=== PATIENT | female | born 1935 | race Caucasian/White ===

== ENCOUNTER → 2017-03-05 07:27 | Outpatient (CLI) | payer MEDICARE, OTHER, SELFPAY ==
[2017-03-04 13:53] VITALS: BMI 39.3
--- NOTE | 2017-03-05 08:00 | ECHOCS_ITS ---
Reason For Study: CHF Procedure This was a 2D Doppler, Color Flow transthoracic echocardiogram. The study was technically difficult. Exam performed in department. Left Ventricle Mild concentric left ventricular hypertrophy. The estimated ejection fraction is 45-50 %. Stage 1 diastolic dysfunction. No regional wall motion abnormalities noted. There is mild global hypokinesis of the left ventricle. Right Ventricle Normal size and thickness. Normal systolic function. Atria Normal left atrium. Normal right atrium. Normal atrial septum. Mitral Valve The mitral valve is structurally normal. No prolapse or stenosis seen. Mild (1+) eccentric mitral valve insufficiency. Tricuspid Valve Normal tricuspid valve. Trivial tricuspid valve insufficiency. Right ventricular systolic pressure estimated to be 33 mmHg. Aortic Valve Trisinus/trileaflet aortic valve. Mild focal aortic valve thickening. Moderately severe (3+) eccentric aortic valve insufficiency. Pulmonic Valve Normal pulmonic valve. Trivial eccentric pulmonic valve insufficiency. Great Vessels Mildly dilated aortic root. Mild atherosclerosis of the aortic arch. Normal inferior vena cava. Inferior vena cava collapse with sniff. Pericardium/Pleural No pericardial effusion. Medication Diluted definity 3ml given slow IV push to enhance endocardial definition. MMode/2D Measurements & Calculations LVIDd: 4.4 cm IVSd: 1.3 cm LVOT diam: 2.0 cm LVIDs: 3.5 cm LVPWd: 1.3 cm LVOT area: 3.3 cm2 FS: 20.3 % Ao root diam: 3.8 cm LAV(MOD-bp): 45.3 ml LA dimension: 3.2 cm LAV(MOD-bp) Indexed: 23.5 ml/m2 Aortic Valve Planimetry: 2.2 cm2 LAV(MOD-sp2): 41.2 ml LAV(MOD-sp4): 49.7 ml LA A4 area: 17.0 cm2 Time Measurements MV dec time: 0.43 sec Doppler Measurements & Calculations MV E max benjie: 47.9 cm/sec Lat Peak E' Benjie: 4.7 cm/sec Med Peak E' Benjie: 3.7 cm/sec MV A max benjie: 86.8 cm/sec E/E' lat: 10.2 E/E' med: 12.8 MV E/A: 0.55 MV V2 max: 113.6 cm/sec MV P1/2t max benjie: 110.4 cm/sec Ao V2 max: 207.7 cm/sec MV max P.2 mmHg MV P1/2t: 116.6 msec Ao max P.3 mmHg MV V2 mean: 61.9 cm/sec MV dec slope: 277.4 cm/sec2 Ao V2 mean: 105.1 cm/sec MV mean P.9 mmHg MVA(P1/2t): 1.9 cm2 Ao mean P.9 mmHg MV V2 VTI: 53.0 cm Ao V2 VTI: 43.8 cm MVA(VTI): 1.9 cm2 RAJIV(I,D): 2.3 cm2 RAJIV(V,D): 2.0 cm2 AI max benjie: 401.2 cm/sec LV V1 max: 128.7 cm/sec SV(LVOT): 102.6 ml AI max P.4 mmHg LV V1 max P.6 mmHg AI dec slope: 172.8 cm/sec2 LV V1 mean P.7 mmHg AI P1/2t: 680.1 msec LV V1 mean: 73.7 cm/sec LV V1 VTI: 31.4 cm PA V2 max: 93.4 cm/sec TR max benjie: 283.9 cm/sec TR max P.4 mmHg Interpretation Summary Mild concentric left ventricular hypertrophy. The estimated ejection fraction is 45-50 %. Stage 1 diastolic dysfunction. There is mild global hypokinesis of the left ventricle. Mild (1+) eccentric mitral valve insufficiency. Trivial tricuspid valve insufficiency. Right ventricular systolic pressure estimated to be 33 mmHg. Moderately severe (3+) eccentric aortic valve insufficiency. There is no comparison study available. The study was technically difficult. Contrast injection was performed. Ordering Physician: Pete Clay Referring Physician: Pete Clay Performed By: Mert Simpson RCS
--- NOTE | 2017-03-05 10:00 | ECHOTEE_ITS ---
Reason For Study: Valve Replacement Evaluation Medication VINICIO probe passed with minimal difficulty. [id number] gargled and swallowed. Cetacaine Topical [place] given X2 orally. Versed 2 mg given slow IVP. Fentanyl 50 mcg given slow IVP. Performed a rapid injection of agitated mix of 9 cc saline and 1cc air to assess for atrial septal defect. Left Ventricle Moderately dilated left ventricle. The estimated ejection fraction is 40-45 %. There is moderate global hypokinesis of the left ventricle. Right Ventricle Moderately dilated right ventricle. The right ventricular wall motion is normal. Atria Normal atrial septum. Bubble contrast study negative for right to left interatrial shunt. Normal left atrium. No thrombus is detected in the left atrial appendage. Normal right atrium. Mitral Valve Mild diffuse mitral valve thickening. Mild (1+) eccentric mitral valve insufficiency. Tricuspid Valve Normal tricuspid valve. Trivial tricuspid valve insufficiency. Right ventricular systolic pressure estimated to be 30 mmHg. Aortic Valve Trisinus/trileaflet aortic valve. Mild diffuse aortic valve thickening. There is no aortic stenosis. Moderate (2+) eccentric aortic valve insufficiency. Pulmonic Valve Normal pulmonic valve. Vessels Mildly dilated aortic root. Mild atherosclerosis of the aortic arch. The pulmonary artery is normal size. Pulmonary venous flow normal. Interpretation Summary Moderately dilated left ventricle. The estimated ejection fraction is 40-45 %. There is moderate global hypokinesis of the left ventricle. Moderately dilated right ventricle. Bubble contrast study negative for right to left interatrial shunt. Mild (1+) eccentric mitral valve insufficiency. Trivial tricuspid valve insufficiency. Right ventricular systolic pressure estimated to be 30 mmHg. Moderate (2+) eccentric aortic valve insufficieny. May be underestimated due to difficulty obtaining adequate images due to horizontal nature of pt's heart. No thrombus is detected in the left atrial appendage. Ordering Physician: Pete Clay Referring Physician: Pete Clay Performed By: Mert Simpson RCS
[2017-03-05 10:56] LABS: Base Excess 2 mmol/L (-2 to +2); Bicarbonate 26.2 mmol/L (22-26); Blood Gas Specimen Type ART; PO2 65 mmHG (75-100); SO2 93 % (95-99); Total Carbon Dioxide 27 mmol/L; pCO2 40.8 mmHg (35-45); pH 7.42 (7.35-7.45)
[2017-03-05 10:56] LABS: Blood Gas Specimen Type VEN; VBG BASE EXCESS 3 mmol/L (-1.0-3.5); VBG Bicarbonate 27 mmol/L (22-26); VBG Oxygen Content 28 mmol/L (23-33); VBG PO2 36 mmHg (25-40); VBG SO2 70 % (50-70); VBG pCO2 41.2 mmHg (41-51); VBG pH 7.43 (7.32-7.42)
[2017-03-05 10:56] LABS: Blood Gas Specimen Type VEN; VBG BASE EXCESS 3 mmol/L (-1.0-3.5); VBG Bicarbonate 27 mmol/L (22-26); VBG Oxygen Content 28 mmol/L (23-33); VBG PO2 32 mmHg (25-40); VBG SO2 62 % (50-70); VBG pCO2 42.6 mmHg (41-51); VBG pH 7.41 (7.32-7.42)
--- NOTE | 2017-03-05 11:01 | CL.D_ITS ---
Patient Name: GONZALO WELCH V Study Date: 03/05/2017 Performing: Pete Clay MD Ht: 61.81 inches 157 cm : 1935 Wt: 216.05 lbs 98 kg Age: 81 Gender: female BSA: 1.97 PROCEDURE(S) PERFORMED LT96-IEO/LHC/COR/LV DC11-AO ROOT ANGIO WITH HEART CATH CLINICAL PROFILE AND INDICATIONS INDICATIONS: Valvular heart disease, Aortic valve insuffiency Stress/Imaging Stress/Image Study Performed: No Angina Classification Anginal Classification w/in 2 Weeks: CCS IV CAD Presentations: Other: dyspnea on exertion. Comorbidities/Risk Factors: Hypertension Dyslipidemia Prior CHF CONCLUSIONS Non obstructive coronary arteries Cardiac output - Reduced Mitral Valve Insufficiency Moderate The patient has pulmonary hypertension which is mild. RECOMMENDATIONS Start Imdur 30mg po qd for HTN; Refer to [facility] for possible TAVR for AI, mild LV dysfunction, and mild pulmonary HTN. Medical management of mild CAD. DESCRIPTION OF PROCEDURE The patient arrived to the procedure lab. The risks and benefits of the procedure as well as a full d escription of our services here and current unavailability of surgical backup were fully explained to the patient and/or their significant other prior to the catheterization. The Timeout was completed, verifying the correct patient and procedure. The patient's procedural site was prepped and draped in the usual fashion. Local anesthetic was given subcutaneously to right groin region with Lidocaine 2%. Using a modified Seldinger technique, arterial access was obtained via the right femoral artery, a 4 Fr sheath was inserted Venous access was obtained via the right femoral vein, a 7Fr sheath was insert ed. A 7Fr thermal dilution catheter was inserted and right heart pressures were recorded, it was then advanced to PA position for cardiac outputs. Thermal dilution cardiac outputs were then recorded. O2 saturations were then obtained. Simultaneous pressures were then recorded. The Thermal dilution cath eter was then removed. Left Coronary Artery selective angiography was performed in multiple views usi ng a 4 Fr. JL5 catheter. Left Coronary Artery selective angiography was performed in multiple views u sing a 4 Fr. JL4 catheter. Right Coronary Artery selective angiography was then performed in multiple views using a 4 Fr. 3DRC catheter. Right Coronary Artery selective angiography was then performed in multiple views using a 4 Fr. AR MOD 2 catheter.The arterial sheath was pulled and manual compression applied until hemostasis is achieved. CORONARY ANGIOGRAPHY DOMINANCE: Right Dominant LEFT HEART ASSESSMENT Left Ventricular Ejection Fraction: Not assessed RIGHT HEART ASSESSMENT Thermal CO: 3.64 Thermal CI: 1.85 PW: 13 PA: 24/9 21 RV: 36/-1 5 RA: 8/6 5 PVR: 176 SVR: 2110 Mitral Valve Area: 1.74 Mitral Valve index: 0.88 Mitral Valve Mean Gradient: 3.6 Right Heart pressures - elevated Mild Pulmonary Hypertension LEFT MAIN: Angiographically normal LEFT ANTERIOR DECENDING ARTERY: No significant disease noted CIRCUMFLEX ARTERY: No significant disease noted RIGHT CORONARY ARTERY: MID RCA: Mild luminal irregularities less than 30% VALVE FINDINGS: Aortic Valve Insufficiency: Grade 2 AORTIC ROOT: Angiographically normal COMPLICATIONS No Complications PROCEDURE MEDICATIONS SUMMARY OF HEMODYNAMIC DATA Time AIR REST ECG 08:05:55 RA 8/6 (5) SV 10:19:44 RV 36/-1, 5 10:20:05 PW (13) PV 10:20:43 PA 24/9 (21) PA 10:20:53 LV 166/-1, 5 10:27:39 LV 167/-1, 6 10:27:47 LV 160/-2, 6 10:28:27 PW /10 (6) 10:28:27 LV 164/-2, 5 10:28:34 PW / (7) 10:28:34 LV 165/-10, -6 10:29:20 RV 37/-2, 0 10:29:20 AO 142/61 (101) SA 10:40:14 Valve Area (c P-P/ms Time AIR REST Mitral 1.75 3.6 mn/584 ms 2.0 pk/584 ms 10:28:34 Type SV CO (l/m) CI (l/m/ HR Time AIR REST Thermal 63.90 3.64 1.85 57 08:05:55 Label % O2 Pres/Loc Time AIR REST AO 93 PV 10:43:29 PA 66 PA 10:44:32 Signed By Pete Clya MD On 03/05/2017 11:01:10 Pete Clay MD
--- NOTE | 2017-03-05 11:26 | EKG12_ITS ---
Test Reason : HEART CATH Blood Pressure : / mmHG Vent. Rate : 057 BPM Atrial Rate : 057 BPM P-R Int : 148 ms QRS Dur : 114 ms QT Int : 506 ms P-R-T Axes : 063 -05 016 degrees QTc Int : 492 ms Poor data quality, interpretation may be adversely affected Sinus bradycardia Anteroseptal infarct , age undetermined T wave abnormality, consider lateral ischemia Abnormal ECG Confirmed by GRETCHEN CLAY ([id number]), editorial specialist PATRICK MACHADO ([id number]) on 03/11/2017 12:08:42 PM Referred By: Gretchen Clay Confirmed By:GRETCHEN CLAY
== END ==
PROVIDERS: Family Provider Preventive Medicine Occupational Medicine; PCP Preventive Medicine Occupational Medicine; Visit Provider Internal Medicine Cardiovascular Disease
DX: I35.1 Nonrheumatic aortic (valve) insufficiency (principal); I24.8 Other forms of acute ischemic heart disease; I50.9 Heart failure, unspecified; R06.02 Shortness of breath
CPT/HCPCS: 82803; 93005; 93306; 93312; 93320; 93325; 93456; 93567; J7040; Q9957; A4216; C1751; C1769; C1894; C8929; Q9967

== ENCOUNTER 2017-03-19 23:32 | Inpatient (IN) | payer MEDICARE, OTHER, SELFPAY ==
[2017-03-19 23:35] VITALS: BP 186/81; PULSE 81; RESP 22; TEMP 36.6; O2SAT 91; BMI 40.0
--- NOTE | 2017-03-19 23:50 | EKG12_ITS ---
Test Reason : NAUSEA Blood Pressure : / mmHG Vent. Rate : 078 BPM Atrial Rate : 078 BPM P-R Int : 142 ms QRS Dur : 106 ms QT Int : 388 ms P-R-T Axes : 050 002 127 degrees QTc Int : 442 ms Normal sinus rhythm Inferior infarct , age undetermined Anterior infarct , age undetermined ST & T wave abnormality, consider lateral ischemia Abnormal ECG Confirmed by ZOHRA SERVIN, NOREEN ([id number]), videotape editor PATRICK MACHADO ([id number]) on 03/22/2017 1:17:38 PM Referred By: Pete Clay Confirmed By:NOREEN العلي MD
--- NOTE | 2017-03-19 23:56 | ED.DCSUM_ITS ---
- ER Visit Summary Date of Service: 03/19/17 Chief Complaint: [] Abdominal pain History of Present Illness: The patient is a 81 F [] complaining of upper quadrant pain bilaterally. She reports symptoms significantly worse in the last 7-8 hours. She reports intermittent pain for the last several days. Reports nausea, denies vomiting. Denies fever. Denies chest pain or shortness of breath. Reports chronic diarrhea. She reports she has a leaky aortic valve. Reports her pain is 8 out of 10. Physical Examination: [] Elderly female in no acute distress. Cardiovascular exam is regular rate and rhythm. Lungs are clear to auscultation. Abdomen is obese, mildly distended. Tenderness palpation in the bilateral upper quadrants. No guarding or rebound. No significant lower extremity edema. Remainder of exam is unremarkable. Test Results: [] CT abdomen/pelvis without contrast: Small bowel obstruction Labs: Elevated white blood cell count 13.7. CMP, lipase within normal limits. Troponin negative. Lactic acid 1.2. INR 0.9. EKG: Normal sinus rhythm, rate of 78 with new flipped T waves in leads I and aVL. Emergency Department Course and Treatment: [] Recent provided intravenous saline bolus, morphine, Phenergan. Serial exam patient had improvement of symptoms. Patient was counseled regarding diagnostic and laboratory findings. Case was discussed with the on-call surgeon Dr. Pierce. The patient notation was discussed with the on-call hospitalist, Dr. Koroma. She will be admitted to general medicine with consult to surgery. NG tube was placed with good return. Treatment Plan: [] Admit to medicine, consult surgery. NG tube. Disposition: [] Admit, stable. Impression: [] Small bowel obstruction EKG changes This note was generated with [employer] dictation software. It may contain incorrect words, spelling, and punctuation that were not noted in review of the chart prior to signing ED Disposition - Plan for ED Patient: Chief Complaint: Abd Pain Referrals: Pete Butler DO [Primary Care Provider] -
[2017-03-20] VITALS (11 sets, daily range): BP systolic 153–197; BP diastolic 67–89; PULSE 57–73; RESP 16–20; TEMP 36.4–37.4; O2SAT 92–98; BMI 39.3; BMI 39.4
[2017-03-20 00:03] LABS: Hematocrit 44.4 % (37-47); Hemoglobin 14.8 g/dl (12.0-15.0); Mean Corp Hgb Conc 33.3 g/gl (32-36); Mean Corpuscular Hgb 31.2 pg (27.0-32.0); Mean Corpuscular Volume 93.5 fL (81-99); Mean Platelet Vol. 12.6 fl (6.2-12.0); Platelet Count 209 K/mm3 (150-450); RBC Distribution Width CV 14.7 % (11.6-14.6); RBC Distribution Width SD 48.6 fl (35.1-43.9); Red Blood Count 4.75 M/mm3 (4.2-5.4); White Blood Count 13.7 K/mm3 (4.4-11.0)
[2017-03-20 00:04] LABS: Absolute Neutrophil Count 10.6 X10^3/uL (2.0-7.7); Basophil# 0.11 X10^3/uL; Basophil% 0.8 % (0-1); Eosinophil# 0.16 X10^3/uL; Eosinophils% 1.2 % (0-5); Lymphocyte # 1.89 X10^3/ul (4.0); Lymphocyte % 13.8 % (19-41); Monocyte# 0.89 X10^3/uL; Monocyte% 6.5 % (0-10); Neutrophil # 10.64 X10^3/uL (2.7-7.7); Neutrophil % 77.3 % (47-70); POSITIVE COUNT NO; POSITIVE DIFFERENTIAL NO; POSITIVE MORPHOLOGY NO
[2017-03-20 00:14] LABS: AST(SGOT) 26 U/L (15-37); Alanine Aminotransfer ALT/SGPT 29 U/L (13-56); Albumin, Serum 3.9 g/dL (3.2-5.0); Alkaline Phosphatase 74 U/L (45-117); Anion Gap 10 (5-15); BUN 24 mg/dL (7-18); BUN/Creat Ratio 17.8 RATIO (10-20); Calcium,Total 9.2 mg/dL (8.5-10.1); Chloride 102 mmol/L (98-107); Creatinine, Serum 1.35 mg/dL (0.55-1.02); EST Glomerular Filtration Rate 40 mL/min (>60); Est Glom Filt Rate - Afr Amer 48 mL/min (>60); Estimated Creatinine Clearance 24.66 ml/min; Globulin 4.1 g/dL (2.2-4.2); Glucose 125 mg/dL (74-106); Lipase 133 U/L (73-393); Potassium 3.8 mmol/L (3.5-5.1); Sodium Level 141 mmol/L (136-145)
[2017-03-20 00:33] LABS: International Normalized Ratio 0.9
[2017-03-20 00:42] LABS: Lactic Acid 1.2 mmol/L (0.4-2.0)
--- NOTE | 2017-03-20 02:18 | RAD_ITS ---
STUDY: X-RAY - ABDOMEN/PELVIS REASON FOR EXAM: Female, 81 years old. Nasogastric tube placement. TECHNIQUE: AP supine abdomen. COMPARISON: [facility] view CT abdomen and pelvis March 20, 2017. FINDINGS: A nasogastric tube is present within the left upper quadrant in the region of the gastric fundus. There is an unremarkable bowel gas pattern. RAD/Abdomen Single View (Portable) IMPRESSION: Nasogastric tube tip in the gastric fundus. Electronically Signed: Narayan Kirkpatrick MD at 2:43 EST , Service support ,
--- NOTE | 2017-03-20 03:20 | PCM.HP.STD ---
Problem List (1) Small bowel obstruction Status: Acute (2) Hypothyroid Status: Acute (3) Abnormal EKG Status: Acute (4) Aortic stenosis Status: Chronic Qualifiers: Cardiac valve disease etiology: etiology unspecified Qualified Code(s): I35.0 - Nonrheumatic aortic (valve) stenosis (5) Hypertension Status: Chronic (6) Secondary pulmonary arterial hypertension Status: Chronic History of Present Illness Date of Admission: 03/20/17 Chief Complaint: abdominal pain The patient is a 81 year old F presents with a one-day history of abdominal pain. The abdominal pain is also associated with some dry heaves and nausea and abdominal distention. Patient presented to the emergency room and was found to have a small bowel obstruction on CAT scan. An NG tube was placed. Patient has noted now that she is having some flatness. Patient denies ever having had a small bowel obstruction before. Patient states that she has had abdominal surgeries, including a ventral hernia repair and recent hiatal hernia repair as well. Dr. Stuart, of general surgery, was contacted and stated that he would see the patient in consultation. [] Past Medical History Past Medical History (Chronic Problems): Chronic Problems (Last Updated 02/23/17 @ 10:25 by Letty De Leon) Aortic stenosis (Chronic) Dyspnea on exertion (Chronic) Obesity (Chronic) Hypertension (Chronic) Secondary pulmonary arterial hypertension (Chronic) Nonrheumatic aortic valve insufficiency (Chronic) Allergies No Known Allergies Allergy (Unverified 03/19/17 23:39) Home Medications: Ambulatory Orders Medication Instructions Recorded allopurinol 300 mg tablet 300 mg PO QDAY 02/15/17 aspirin 81 mg tablet,delayed 81 mg PO QDAY 02/15/17 release atenolol 25 mg tablet 25 mg PO QDAY 02/15/17 hydralazine 25 mg tablet 1 tab PO TID tab 02/15/17 levothyroxine 75 mcg capsule 75 mcg PO .QD cap 02/15/17 losartan 100 mg tablet 100 mg PO QDAY 02/15/17 multivitamin,wo-hrhx-wtsgyowq 1 tab PO QDAY 02/16/17 tablet furosemide 40 mg tablet 40 mg PO QDAY #90 tab 02/17/17 isosorbide mononitrate ER 30 mg 30 mg PO QDAY #30 tab 03/05/17 tablet,extended release 24 hr Surgical History: herniorrhaphy, - - Hiatal hernia repair Psychiatric History: No pertinent psych hx Smoking Status: Never smoker Tobacco Use: Non-smoker Alcohol: None - *Family History Paternal History Items: Heart Disease Review of Systems Constitutional: Denies: Chills, Fever, Weight Change Eyes: Denies: Blurred vision, Double vision HEENT: Denies: Head Aches, Sinus Congestion, Sinus Drainage Cardiovascular: Denies: Chest Pain, Palpitations Respiratory: Denies: Cough, Shortness of breath at rest, Sputum production Gastrointestinal: Reports: Abdominal Pain, Diarrhea - Chronic, Nausea, Vomiting Genitourinary: Denies: Dysuria Musculoskeletal: Denies: Joint Pain, Joint Tenderness Skin: Denies: Rash, Wounds Neurological: Denies: Blurred vision, Double vision, Focal weakness, Numbness, Tingling Psychiatric: Denies: Anxiety, Depression Endocrine: Denies: Change in Body Habitus, Heat/ Cold Intolerance Hematologic/ Lymphatic: Denies: Easy Bruising, Easy Bleeding, Hx of blood clot VTE Information - Inpt Only VTE Present on Admission: No VTE Pharm Prophylaxis ordered?: Yes Patient Problems: Active and Suspected Problems (Last Updated 02/23/17 @ 10:25 by Letty De Leon) Small bowel obstruction (Acute) Hypothyroid (Acute) Abnormal EKG (Acute) - Physical Exam General: Alert, Cooperative, - - Uncomfortable. Afebrile. HEENT: Atraumatic, Normocephalic, - - No icterus Oral: Moist Mucosa, No Gingival or Mucosal Lesions/ Ulcerations Neck: No Nodes, Thyroid Normal Size and Texture Lungs: Clear to auscultation, Normal air movement, No rhonchi, No wheeze Cardiovascular: Regular rate, Regular Rhythm, Normal S1, Normal S2 Abdomen: Distended, Tender, - - High-pitched bowel sounds Extremities: No Calf Tenderness, Edema Skin: No rashes, - - Venous stasis dermatitis with some superficial wounds on the anterior shins Musculoskeletal: No Tenderness to Palpation of Joints or Extremities, No Muscle Wasting Neurological: Deep Tendon Reflexes 2+/4 and Symmetrical, Neuro grossly intact, Muscle tone normal, Sensory exam intact to light touch and pain Psych/Mental Status: Normal Affect, Appropriate Vital Signs Temp Pulse Resp BP Pulse Ox 36.6 C 69 18 197/74 H 92 03/19/17 23:35 03/20/17 02:14 03/20/17 03:00 03/20/17 02:14 03/20/17 03:00 Oxygen Flow Rate 2 Oxygen Delivery Method Room Air Weight: 96.1 kg Body Mass Index (BMI) 40.0 Laboratory Tests Past 24 Hrs 03/19/17 03/19/17 03/19/17 23:35 23:35 23:35 WBC 13.7 H RBC 4.75 Hgb 14.8 Hct 44.4 MCV 93.5 MCH 31.2 MCHC 33.3 RDW 14.7 H RDW Differential 48.6 H Plt Count 209 MPV 12.6 H Immature Gran % (Auto) 0.400 Neut % (Auto) 77.3 H Lymph % (Auto) 13.8 L [place] % (Auto) 6.5 Eos % (Auto) 1.2 Baso % (Auto) 0.8 Absolute Neuts (auto) 10.6 H Total Counted Not Reportable PT 12.0 INR 0.9 Sodium 141 Potassium 3.8 Chloride 102 Carbon Dioxide 29.0 Anion Gap 10 BUN 24 H Creatinine 1.35 H Estim Creat Clear Calc 24.66 Est GFR (MDRD) Af Amer 48 L Est GFR (MDRD) Non-Af 40 L BUN/Creatinine Ratio 17.8 Glucose 125 H Lactic Acid Calcium 9.2 Total Bilirubin 0.30 AST 26 ALT 29 Alkaline Phosphatase 74 Troponin I < 0.02 Total Protein 8.0 Albumin 3.9 Globulin 4.1 Albumin/Globulin Ratio 1.0 Lipase 133 Blood Type Antibody Screen 03/20/17 03/20/17 00:05 00:05 WBC RBC Hgb Hct MCV MCH MCHC RDW RDW Differential Plt Count MPV Immature Gran % (Auto) Neut % (Auto) Lymph % (Auto) [place] % (Auto) Eos % (Auto) Baso % (Auto) Absolute Neuts (auto) Total Counted PT INR Sodium Potassium Chloride Carbon Dioxide Anion Gap BUN Creatinine Estim Creat Clear Calc Est GFR (MDRD) Af Amer Est GFR (MDRD) Non-Af BUN/Creatinine Ratio Glucose Lactic Acid 1.2 Calcium Total Bilirubin AST ALT Alkaline Phosphatase Troponin I Total Protein Albumin Globulin Albumin/Globulin Ratio Lipase Blood Type A NEGATIVE Antibody Screen NEGATIVE Clinical Impression(s) from Imaging Studies KUB X-Ray 03/20/17 02:18 IMPRESSION: Nasogastric tube tip in the gastric fundus. Electronically Signed: Narayan Kirkpatrick MD at 2:43 EST , Service support , Abdomen/Pelvis CT 03/20/17 23:50 IMPRESSION: Developing distal small bowel obstruction. Left renal atrophy. No intra-abdominal free air. Coronary artery calcifications. Small pericardial effusion. Mildly elevated right hemidiaphragm with right lower lobe subsegmental atelectasis. Small hiatal hernia. Old granulomatous disease. Electronically Signed: Narayan Kirkpatrick MD at 1:25 EST , Service support , Assessment/Plan Active and Suspected Problems (Last Updated 02/23/17 @ 10:25 by Letty De Leon) Small bowel obstruction (Acute) Hypothyroid (Acute) Abnormal EKG (Acute) 1. Small bowel obstruction Probably due to adhesions given patient's prior abdominal surgeries. Current plan is for conservative measures: Which include, IV fluids, pain control and antiemetics. N.p.o. Consultation will be to general surgery as well in case patient may need surgery if her condition gets worse or if she fails to progress over several days. No indication for IV nutrition at this time. 2. Abnormal EKG Patient has some inverted T waves in 1 and aVL which were not present previously. Patient has no chest pain. Patient be monitored on telemetry but I will check troponins but if those are negative then I would forego any additional evaluation. Patient did have a left heart catheterization on February 13, 2017 that showed minimal obstructive coronary artery disease. Therefore is highly likely patient will experience any heart attack based on that. Patient's atenolol will be held but will be on IV Toprol instead. 3. Aortic stenosis Moderate the recent VINICIO she underwent. Patient is to follow-up at a the [facility] for eventual valve replacement. It sounds like that they are considering a TAVR procedure for her. 4. Hypothyroidism Patient be on IV Synthroid until she can resume her oral oral regimen. 5. DVT prophylaxis with low molecular weight heparin 6. CODE STATUS: Full I asked patient if she would want to have CPR and endotracheal intubation for cardiac and respiratory arrest, respectively. Patient states that she would want both that she would only want mechanical ventilation and failure were short-term. Code Visit Inpatient E&M: 43554 Init Hosp L3
--- NOTE | 2017-03-20 03:31 | HP.PCM_ITS ---
Problem List (1) Small bowel obstruction Status: Acute (2) Hypothyroid Status: Acute (3) Abnormal EKG Status: Acute (4) Aortic stenosis Status: Chronic Qualifiers: Cardiac valve disease etiology: etiology unspecified Qualified Code(s): I35.0 - Nonrheumatic aortic (valve) stenosis (5) Hypertension Status: Chronic (6) Secondary pulmonary arterial hypertension Status: Chronic History of Present Illness Date of Admission: 03/20/17 Chief Complaint: abdominal pain The patient is a 81 year old F presents with a one-day history of abdominal pain. The abdominal pain is also associated with some dry heaves and nausea and abdominal distention. Patient presented to the emergency room and was found to have a small bowel obstruction on CAT scan. An NG tube was placed. Patient has noted now that she is having some flatness. Patient denies ever having had a small bowel obstruction before. Patient states that she has had abdominal surgeries, including a ventral hernia repair and recent hiatal hernia repair as well. Dr. Stuart, of general surgery, was contacted and stated that he would see the patient in consultation. [] Past Medical History Past Medical History (Chronic Problems): Chronic Problems (Last Updated 02/23/17 @ 10:25 by Letty De Leon) Aortic stenosis (Chronic) Dyspnea on exertion (Chronic) Obesity (Chronic) Hypertension (Chronic) Secondary pulmonary arterial hypertension (Chronic) Nonrheumatic aortic valve insufficiency (Chronic) Allergies No Known Allergies Allergy (Unverified 03/19/17 23:39) Home Medications: Ambulatory Orders Medication Instructions Recorded allopurinol 300 mg tablet 300 mg PO QDAY 02/15/17 aspirin 81 mg tablet,delayed 81 mg PO QDAY 02/15/17 release atenolol 25 mg tablet 25 mg PO QDAY 02/15/17 hydralazine 25 mg tablet 1 tab PO TID tab 02/15/17 levothyroxine 75 mcg capsule 75 mcg PO .QD cap 02/15/17 losartan 100 mg tablet 100 mg PO QDAY 02/15/17 multivitamin,pm-[id number]-[id number] 1 tab PO QDAY 02/16/17 tablet furosemide 40 mg tablet 40 mg PO QDAY #90 tab 02/17/17 isosorbide mononitrate ER 30 mg 30 mg PO QDAY #30 tab 03/05/17 tablet,extended release 24 hr Surgical History: herniorrhaphy, - - Hiatal hernia repair Psychiatric History: No pertinent psych hx Smoking Status: Never smoker Tobacco Use: Non-smoker Alcohol: None - *Family History Paternal History Items: Heart Disease Review of Systems Constitutional: Denies: Chills, Fever, Weight Change Eyes: Denies: Blurred vision, Double vision HEENT: Denies: Head Aches, Sinus Congestion, Sinus Drainage Cardiovascular: Denies: Chest Pain, Palpitations Respiratory: Denies: Cough, Shortness of breath at rest, Sputum production Gastrointestinal: Reports: Abdominal Pain, Diarrhea - Chronic, Nausea, Vomiting Genitourinary: Denies: Dysuria Musculoskeletal: Denies: Joint Pain, Joint Tenderness Skin: Denies: Rash, Wounds Neurological: Denies: Blurred vision, Double vision, Focal weakness, Numbness, Tingling Psychiatric: Denies: Anxiety, Depression Endocrine: Denies: Change in Body Habitus, Heat/ Cold Intolerance Hematologic/ Lymphatic: Denies: Easy Bruising, Easy Bleeding, Hx of blood clot VTE Information - Inpt Only VTE Present on Admission: No VTE Pharm Prophylaxis ordered?: Yes Patient Problems: Active and Suspected Problems (Last Updated 02/23/17 @ 10:25 by Letty De Leon) Small bowel obstruction (Acute) Hypothyroid (Acute) Abnormal EKG (Acute) - Physical Exam General: Alert, Cooperative, - - Uncomfortable. Afebrile. HEENT: Atraumatic, Normocephalic, - - No icterus Oral: Moist Mucosa, No Gingival or Mucosal Lesions/ Ulcerations Neck: No Nodes, Thyroid Normal Size and Texture Lungs: Clear to auscultation, Normal air movement, No rhonchi, No wheeze Cardiovascular: Regular rate, Regular Rhythm, Normal S1, Normal S2 Abdomen: Distended, Tender, - - High-pitched bowel sounds Extremities: No Calf Tenderness, Edema Skin: No rashes, - - Venous stasis dermatitis with some superficial wounds on the anterior shins Musculoskeletal: No Tenderness to Palpation of Joints or Extremities, No Muscle Wasting Neurological: Deep Tendon Reflexes 2+/4 and Symmetrical, Neuro grossly intact, Muscle tone normal, Sensory exam intact to light touch and pain Psych/Mental Status: Normal Affect, Appropriate Vital Signs Temp Pulse Resp BP Pulse Ox 36.6 C 69 18 197/74 H 92 03/19/17 23:35 03/20/17 02:14 03/20/17 03:00 03/20/17 02:14 03/20/17 03:00 Oxygen Flow Rate 2 Oxygen Delivery Method Room Air Weight: 96.1 kg Body Mass Index (BMI) 40.0 Laboratory Tests Past 24 Hrs 03/19/17 03/19/17 03/19/17 23:35 23:35 23:35 WBC 13.7 H RBC 4.75 Hgb 14.8 Hct 44.4 MCV 93.5 MCH 31.2 MCHC 33.3 RDW 14.7 H RDW Differential 48.6 H Plt Count 209 MPV 12.6 H Immature Gran % (Auto) 0.400 Neut % (Auto) 77.3 H Lymph % (Auto) 13.8 L [place] % (Auto) 6.5 Eos % (Auto) 1.2 Baso % (Auto) 0.8 Absolute Neuts (auto) 10.6 H Total Counted Not Reportable PT 12.0 INR 0.9 Sodium 141 Potassium 3.8 Chloride 102 Carbon Dioxide 29.0 Anion Gap 10 BUN 24 H Creatinine 1.35 H Estim Creat Clear Calc 24.66 Est GFR (MDRD) Af Amer 48 L Est GFR (MDRD) Non-Af 40 L BUN/Creatinine Ratio 17.8 Glucose 125 H Lactic Acid Calcium 9.2 Total Bilirubin 0.30 AST 26 ALT 29 Alkaline Phosphatase 74 Troponin I < 0.02 Total Protein 8.0 Albumin 3.9 Globulin 4.1 Albumin/Globulin Ratio 1.0 Lipase 133 Blood Type Antibody Screen 03/20/17 03/20/17 00:05 00:05 WBC RBC Hgb Hct MCV MCH MCHC RDW RDW Differential Plt Count MPV Immature Gran % (Auto) Neut % (Auto) Lymph % (Auto) [place] % (Auto) Eos % (Auto) Baso % (Auto) Absolute Neuts (auto) Total Counted PT INR Sodium Potassium Chloride Carbon Dioxide Anion Gap BUN Creatinine Estim Creat Clear Calc Est GFR (MDRD) Af Amer Est GFR (MDRD) Non-Af BUN/Creatinine Ratio Glucose Lactic Acid 1.2 Calcium Total Bilirubin AST ALT Alkaline Phosphatase Troponin I Total Protein Albumin Globulin Albumin/Globulin Ratio Lipase Blood Type A NEGATIVE Antibody Screen NEGATIVE Clinical Impression(s) from Imaging Studies KUB X-Ray 03/20/17 02:18 IMPRESSION: Nasogastric tube tip in the gastric fundus. Electronically Signed: Narayan Kirkpatrick MD at 2:43 EST , Service support , Abdomen/Pelvis CT 03/20/17 23:50 IMPRESSION: Developing distal small bowel obstruction. Left renal atrophy. No intra-abdominal free air. Coronary artery calcifications. Small pericardial effusion. Mildly elevated right hemidiaphragm with right lower lobe subsegmental atelectasis. Small hiatal hernia. Old granulomatous disease. Electronically Signed: Narayan Kirkpatrick MD at 1:25 EST , Service support , Assessment/Plan Active and Suspected Problems (Last Updated 02/23/17 @ 10:25 by Letty De Leon) Small bowel obstruction (Acute) Hypothyroid (Acute) Abnormal EKG (Acute) 1. Small bowel obstruction * Probably due to adhesions given patient's prior abdominal surgeries. * Current plan is for conservative measures: Which include, IV fluids, pain control and antiemetics. * N.p.o. * Consultation will be to general surgery as well in case patient may need surgery if her condition gets worse or if she fails to progress over several days. * No indication for IV nutrition at this time. 2. Abnormal EKG * Patient has some inverted T waves in 1 and aVL which were not present previously. * Patient has no chest pain. Patient be monitored on telemetry but I will check troponins but if those are negative then I would forego any additional evaluation. * Patient did have a left heart catheterization on February 13, 2017 that showed minimal obstructive coronary artery disease. Therefore is highly likely patient will experience any heart attack based on that. * Patient's atenolol will be held but will be on IV Toprol instead. 3. Aortic stenosis * Moderate the recent VINICIO she underwent. * Patient is to follow-up at a the [facility] for eventual valve replacement. It sounds like that they are considering a TAVR procedure for her. 4. Hypothyroidism * Patient be on IV Synthroid until she can resume her oral oral regimen. 5. DVT prophylaxis with low molecular weight heparin 6. CODE STATUS: Full * I asked patient if she would want to have CPR and endotracheal intubation for cardiac and respiratory arrest, respectively. Patient states that she would want both that she would only want mechanical ventilation and failure were short -term. Code Visit Inpatient E&M: 08224 Init Hosp L3
[2017-03-20] MEDS: 0.9% Normal Saline 1,000 ML 75 ML IV ×2 (04:11→16:24)
[2017-03-20 04:44] LABS: Absolute Neutrophil Count 7.8 X10^3/uL (2.0-7.7); Basophil# 0.04 X10^3/uL; Basophil% 0.4 % (0-1); Eosinophil# 0.02 X10^3/uL; Eosinophils% 0.2 % (0-5); Hematocrit 40.9 % (37-47); Hemoglobin 13.2 g/dl (12.0-15.0); Lymphocyte % 12.5 % (19-41); Mean Corp Hgb Conc 32.3 g/gl (32-36); Mean Corpuscular Hgb 30.5 pg (27.0-32.0); Mean Corpuscular Volume 94.5 fL (81-99); Mean Platelet Vol. 12.1 fl (6.2-12.0); Monocyte# 0.57 X10^3/uL; Monocyte% 5.9 % (0-10); Neutrophil # 7.78 X10^3/uL (2.7-7.7); Neutrophil % 80.8 % (47-70); POSITIVE COUNT NO; POSITIVE DIFFERENTIAL NO; POSITIVE MORPHOLOGY NO; Platelet Count 175 K/mm3 (150-450); RBC Distribution Width CV 14.4 % (11.6-14.6); RBC Distribution Width SD 48.3 fl (35.1-43.9); Red Blood Count 4.33 M/mm3 (4.2-5.4); White Blood Count 9.6 K/mm3 (4.4-11.0)
[2017-03-20 05:02] LABS: Anion Gap 8 (5-15); BUN 23 mg/dL (7-18); BUN/Creat Ratio 18.3 RATIO (10-20); Calcium,Total 8.3 mg/dL (8.5-10.1); Chloride 103 mmol/L (98-107); Creatinine, Serum 1.26 mg/dL (0.55-1.02); EST Glomerular Filtration Rate 43 mL/min (>60); Est Glom Filt Rate - Afr Amer 52 mL/min (>60); Estimated Creatinine Clearance 26.42 ml/min; Glucose 134 mg/dL (74-106); Sodium Level 143 mmol/L (136-145)
[2017-03-20] MEDS: Metoprolol Tartrate 5 MG/5 ML Vial IV (05:50)
[2017-03-20] MEDS: Ondansetron 4 MG/2 ML Vial IV (07:46)
--- NOTE | 2017-03-20 08:45 | NURSING ---
Patient c/o nausea and noted to be wretching per Dr. Pierce during rounding.
[2017-03-20] MEDS: 0.9% NaCl Peripheral Flush Adult/Peds IV (08:56)
[2017-03-20] MEDS: proCHLORPERazine 10 MG/2 ML Vial 5 MG IV (08:56)
--- NOTE | 2017-03-20 09:02 | NURSING ---
Nurse talks with pt's brother to provide update w/ pt's permission.
--- NOTE | 2017-03-20 09:16 | PCA ---
Addendum entered by Mert Bennett 03/20/17 11:49: Fax received from [facility], placed on pt chart and informed primary RN, Mirna. Also faxed release of medical records to [facility] in [place], [place]. Spoke with [facility] nursing contract sheltered workshop supervisor at [phone], fax number [phone]. Call received back from Regina stating their facility does not have any records on file for pt. Informed Primary RN, Mirna. Original Note: Addendum entered by Mert Bennett 03/20/17 09:52: Call Received from Juan Luis at [facility], stated the release was not faxed to the correct number due to it being after hours, re-faxed release to [phone] Original Note: 0910 -- Fax sent to [facility] ([phone] phone # / [phone] fax) regarding pt's past surgical reports per Dr. Pierce's request. Call then placed to [facility] medical records line to confirm receipt of request. Spoke with Julia whom took information and stated she will send this request to the appropriate department.
--- NOTE | 2017-03-20 09:25 | RAD_ITS ---
STUDY: X-RAY - ABDOMEN/PELVIS REASON FOR EXAM: Female, 81 years old. NG tube placement TECHNIQUE: Single AP view of the abdomen / pelvis. COMPARISON: March 20 2017 KUB FINDINGS: The lung bases are out of the [id number]. This postoperative change in the left upper quadrant. There is an NG tube present the tip is in the stomach. The liver spleen and kidneys are mostly obscured. Normal soft tissue structures. There are diffuse degenerative changes of the visualized lumbar spine. RAD/Abdomen Single View (Portable) IMPRESSION: NG tube tip is in the stomach. Electronically Signed: Vivienne Caldwell MD at 11:43 EST Tel , Service support ,
--- NOTE | 2017-03-20 09:55 | PCM.CONS.GEN ---
Problem List (1) Aortic insufficiency Status: Acute (2) Small bowel obstruction Status: Acute Reason for Consult Date of Consultation: 03/20/17 History of Present Illness: The patient is a 81 year old F who presents with a complaint of abdominal distention, nausea, and vomiting. she notes she is still moving her bowels and passing flatus. she presented to [facility] emergency department. I was contacted by the emergency department physician when CT scan of the abdomen and pelvis demonstrated was felt to be a early, but possibly progressing small bowel obstruction. Also of note was that the patient had EKG changes to her T waves compared to previous EKGs per the emergency physician. the patient was admitted to the medicine service, a nasogastric tube was placed and I was consulted. This morning, the patient feels that her abdominal pain is decreased, but she is still having nausea. The patient has a somewhat complex history. She has significant aortic insufficiency and she is currently being considered for a TAVR. she had had a recent echocardiogram and cardiac catheterization performed by Dr. Clay for evaluation of this abnormality. She notes a history of multiple hernia repairs. She recently had a Ronen fundoplication performed at [facility]. She notes multiple additional hernias. She states she had left inguinal hernias and laparoscopic left inguinal hernias. She notes a right inguinal hernia where she had a small bowel resection performed. Her hospital record here lists a ventral hernia but I do not see signs of ventral hernia examining her abdomen. Past Medical History Past Medical History (Chronic Problems): Chronic Problems (Last Updated 02/23/17 @ 10:25 by Letty De Leon) Aortic stenosis (Chronic) Dyspnea on exertion (Chronic) Obesity (Chronic) Hypertension (Chronic) Secondary pulmonary arterial hypertension (Chronic) Nonrheumatic aortic valve insufficiency (Chronic) Allergies No Known Allergies Allergy (Unverified 03/19/17 23:39) Home Medications: Ambulatory Orders Medication Instructions Recorded allopurinol 300 mg tablet 300 mg PO QDAY 02/15/17 aspirin 81 mg tablet,delayed 81 mg PO QDAY 02/15/17 release atenolol 25 mg tablet 25 mg PO QDAY 02/15/17 hydralazine 25 mg tablet 1 tab PO TID tab 02/15/17 levothyroxine 75 mcg capsule 75 mcg PO SUTUWEFRSA cap 02/15/17 losartan 100 mg tablet 100 mg PO QDAY 02/15/17 multivitamin,jj-[id number] 1 tab PO QDAY 02/16/17 tablet furosemide 40 mg tablet 40 mg PO QDAY #90 tab 02/17/17 isosorbide mononitrate ER 30 mg 30 mg PO QDAY #30 tab 03/05/17 tablet,extended release 24 hr Levothyroxine [Synthroid] 1.5 tab PO MOTH 03/20/17 Surgical History: herniorrhaphy, - - Hiatal hernia repair, multiple inguinal hernia repairs and what sounds like a small bowel resection with a previous right inguinal hernia repair Psychiatric History: No pertinent psych hx Smoking Status: Never smoker Tobacco Use: Non-smoker Alcohol: None - *Family History Paternal History Items: Heart Disease Review of Systems Constitutional: Reports: Anorexia, Fatigue. Denies: Chills, Fever, Weight Change HEENT: Denies: Head Aches, Sinus Congestion, Sinus Drainage Cardiovascular: Denies: Chest Pain, Palpitations Respiratory: Reports: Shortness of Breath. Denies: Cough, Shortness of breath at rest, Sputum production Gastrointestinal: Reports: Abdominal Pain, Nausea, Vomiting Genitourinary: Denies: Dysuria Musculoskeletal: Denies: Joint Pain, Joint Tenderness Skin: Denies: Rash, Wounds Neurological: Denies: Numbness, Tingling, Focal weakness Psychiatric: Denies: Anxiety, Depression, Homicidal Ideations, Suicidal Ideations Hematologic/ Lymphatic: Denies: Easy Bruising, Easy Bleeding Patient Problems: Active and Suspected Problems (Last Updated 02/23/17 @ 10:25 by Letty De Leon) Small bowel obstruction (Acute) Hypothyroid (Acute) Abnormal EKG (Acute) Aortic insufficiency (Acute) - Physical Exam General: Alert, Oriented x3, Cooperative, - - nasogastric tube with minimal output Neck: No JVD Lungs: No wheeze, - - decreased breath sounds at the right base Cardiovascular: Regular rate, Murmur - left sternal border-nonradiating to carotid Abdomen: Bowel Sounds Present, Soft, Distended, Tender - mild diffusely tender without peritoneal signs, No hernias noted Vital Signs Temp Pulse Resp BP Pulse Ox 98.4 F 57 L 20 H 161/75 H 97 03/20/17 04:11 03/20/17 07:57 03/20/17 04:11 03/20/17 07:34 03/20/17 04:11 Oxygen Flow Rate 3 Oxygen Delivery Method Nasal Cannula Weight: 94.5 kg Body Mass Index (BMI) 39.3 Intake and Output for Last 24 Hours 03/18/17 03/19/17 03/20/17 23:59 23:59 23:59 Intake Total 167 / 167 Output Total 125 / 125 Balance 42 / 42 Laboratory Tests Past 24 Hrs 03/20/17 03/20/17 03/20/17 04:30 04:30 08:35 WBC 9.6 RBC 4.33 Hgb 13.2 Hct 40.9 MCV 94.5 MCH 30.5 MCHC 32.3 RDW 14.4 RDW Differential 48.3 H Plt Count 175 MPV 12.1 H Immature Gran % (Auto) 0.200 Neut % (Auto) 80.8 H Lymph % (Auto) 12.5 L [place] % (Auto) 5.9 Eos % (Auto) 0.2 Baso % (Auto) 0.4 Absolute Neuts (auto) 7.8 H Absolute Lymphs (auto) 1.20 Total Counted Not Reportable Sodium 143 Potassium 4.0 Chloride 103 Carbon Dioxide 32.0 Anion Gap 8 BUN 23 H Creatinine 1.26 H Estim Creat Clear Calc 26.42 Est GFR (MDRD) Af Amer 52 L Est GFR (MDRD) Non-Af 43 L BUN/Creatinine Ratio 18.3 Glucose 134 H Calcium 8.3 L Troponin I < 0.02 0.02 Assessment/Plan Active and Suspected Problems (Last Updated 02/23/17 @ 10:25 by Letty De Leon) Small bowel obstruction (Acute) Hypothyroid (Acute) Abnormal EKG (Acute) Aortic insufficiency (Acute) questionable partial small bowel obstruction, aortic insufficiency, consideration for TAVR with minimal output from the NG tube, and reviewing the KUB. I recommended the NG tube be advanced to see if this improves drainage. CT scan does demonstrate some small bowel dilatation, but there is also significant gastric dilatation with what appears to be significant residual material in the stomach and cecal distention with significant fecal loading. If the patient's nausea improves, will give Gastrografin through NG tube as this was a noncontrast CT scan and consider repeating CT scan with contrast versus follow-up KUBs. Will obtain abdominal multiview in the morning and make decision based on this study. Patient has multiple previous abdominal procedures. She has what sounds like aortic insufficiency significant enough to consider aortic valve replacement. I've requested of Dr. Esparza that Dr. Richards be consulted to assess surgical risk. If she fails to improve or needs surgical intervention. We have an appropriate cardiac assessment to determine whether this should occur at our [facility], she should be transferred to a higher level of care. I requested operative reports from Jennifer don, which hopefully is both the recent Ronen fundoplication and possibly her previous hernia repairs, although patient seems less clear where her previous hernia surgeries were performed.
--- NOTE | 2017-03-20 10:04 | CON.PCM_ITS ---
Problem List (1) Aortic insufficiency Status: Acute (2) Small bowel obstruction Status: Acute Reason for Consult Date of Consultation: 03/20/17 History of Present Illness: The patient is a 81 year old F who presents with a complaint of abdominal distention, nausea, and vomiting. she notes she is still moving her bowels and passing flatus. she presented to [facility] emergency department. I was contacted by the emergency department physician when CT scan of the abdomen and pelvis demonstrated was felt to be a early, but possibly progressing small bowel obstruction. Also of note was that the patient had EKG changes to her T waves compared to previous EKGs per the emergency physician. the patient was admitted to the medicine service, a nasogastric tube was placed and I was consulted. This morning, the patient feels that her abdominal pain is decreased, but she is still having nausea. The patient has a somewhat complex history. She has significant aortic insufficiency and she is currently being considered for a TAVR. she had had a recent echocardiogram and cardiac catheterization performed by Dr. Clay for evaluation of this abnormality. She notes a history of multiple hernia repairs. She recently had a Ronen fundoplication performed at [facility]. She notes multiple additional hernias. She states she had left inguinal hernias and laparoscopic left inguinal hernias. She notes a right inguinal hernia where she had a small bowel resection performed. Her hospital record here lists a ventral hernia but I do not see signs of ventral hernia examining her abdomen. Past Medical History Past Medical History (Chronic Problems): Chronic Problems (Last Updated 02/23/17 @ 10:25 by Letty De Leon) Aortic stenosis (Chronic) Dyspnea on exertion (Chronic) Obesity (Chronic) Hypertension (Chronic) Secondary pulmonary arterial hypertension (Chronic) Nonrheumatic aortic valve insufficiency (Chronic) Allergies No Known Allergies Allergy (Unverified 03/19/17 23:39) Home Medications: Ambulatory Orders Medication Instructions Recorded allopurinol 300 mg tablet 300 mg PO QDAY 02/15/17 aspirin 81 mg tablet,delayed 81 mg PO QDAY 02/15/17 release atenolol 25 mg tablet 25 mg PO QDAY 02/15/17 hydralazine 25 mg tablet 1 tab PO TID tab 02/15/17 levothyroxine 75 mcg capsule 75 mcg PO SUTUWEFRSA cap 02/15/17 losartan 100 mg tablet 100 mg PO QDAY 02/15/17 multivitamin,vo-uoxy-sobjvsci 1 tab PO QDAY 02/16/17 tablet furosemide 40 mg tablet 40 mg PO QDAY #90 tab 02/17/17 isosorbide mononitrate ER 30 mg 30 mg PO QDAY #30 tab 03/05/17 tablet,extended release 24 hr Levothyroxine [Synthroid] 1.5 tab PO MOTH 03/20/17 Surgical History: herniorrhaphy, - - Hiatal hernia repair, multiple inguinal hernia repairs and what sounds like a small bowel resection with a previous right inguinal hernia repair Psychiatric History: No pertinent psych hx Smoking Status: Never smoker Tobacco Use: Non-smoker Alcohol: None - *Family History Paternal History Items: Heart Disease Review of Systems Constitutional: Reports: Anorexia, Fatigue. Denies: Chills, Fever, Weight Change HEENT: Denies: Head Aches, Sinus Congestion, Sinus Drainage Cardiovascular: Denies: Chest Pain, Palpitations Respiratory: Reports: Shortness of Breath. Denies: Cough, Shortness of breath at rest, Sputum production Gastrointestinal: Reports: Abdominal Pain, Nausea, Vomiting Genitourinary: Denies: Dysuria Musculoskeletal: Denies: Joint Pain, Joint Tenderness Skin: Denies: Rash, Wounds Neurological: Denies: Numbness, Tingling, Focal weakness Psychiatric: Denies: Anxiety, Depression, Homicidal Ideations, Suicidal Ideations Hematologic/ Lymphatic: Denies: Easy Bruising, Easy Bleeding Patient Problems: Active and Suspected Problems (Last Updated 02/23/17 @ 10:25 by Letty De Leon) Small bowel obstruction (Acute) Hypothyroid (Acute) Abnormal EKG (Acute) Aortic insufficiency (Acute) - Physical Exam General: Alert, Oriented x3, Cooperative, - - nasogastric tube with minimal output Neck: No JVD Lungs: No wheeze, - - decreased breath sounds at the right base Cardiovascular: Regular rate, Murmur - left sternal border-nonradiating to carotid Abdomen: Bowel Sounds Present, Soft, Distended, Tender - mild diffusely tender without peritoneal signs, No hernias noted Vital Signs Temp Pulse Resp BP Pulse Ox 98.4 F 57 L 20 H 161/75 H 97 03/20/17 04:11 03/20/17 07:57 03/20/17 04:11 03/20/17 07:34 03/20/17 04:11 Oxygen Flow Rate 3 Oxygen Delivery Method Nasal Cannula Weight: 94.5 kg Body Mass Index (BMI) 39.3 Intake and Output for Last 24 Hours 03/18/17 03/19/17 03/20/17 23:59 23:59 23:59 Intake Total 167 / 167 Output Total 125 / 125 Balance 42 / 42 Laboratory Tests Past 24 Hrs 03/20/17 03/20/17 03/20/17 04:30 04:30 08:35 WBC 9.6 RBC 4.33 Hgb 13.2 Hct 40.9 MCV 94.5 MCH 30.5 MCHC 32.3 RDW 14.4 RDW Differential 48.3 H Plt Count 175 MPV 12.1 H Immature Gran % (Auto) 0.200 Neut % (Auto) 80.8 H Lymph % (Auto) 12.5 L Patrick % (Auto) 5.9 Eos % (Auto) 0.2 Baso % (Auto) 0.4 Absolute Neuts (auto) 7.8 H Absolute Lymphs (auto) 1.20 Total Counted Not Reportable Sodium 143 Potassium 4.0 Chloride 103 Carbon Dioxide 32.0 Anion Gap 8 BUN 23 H Creatinine 1.26 H Estim Creat Clear Calc 26.42 Est GFR (MDRD) Af Amer 52 L Est GFR (MDRD) Non-Af 43 L BUN/Creatinine Ratio 18.3 Glucose 134 H Calcium 8.3 L Troponin I < 0.02 0.02 Assessment/Plan Active and Suspected Problems (Last Updated 02/23/17 @ 10:25 by Letty De Leon) Small bowel obstruction (Acute) Hypothyroid (Acute) Abnormal EKG (Acute) Aortic insufficiency (Acute) questionable partial small bowel obstruction, aortic insufficiency, consideration for TAVR with minimal output from the NG tube, and reviewing the KUB. I recommended the NG tube be advanced to see if this improves drainage. CT scan does demonstrate some small bowel dilatation, but there is also significant gastric dilatation with what appears to be significant residual material in the stomach and cecal distention with significant fecal loading. If the patient's nausea improves, will give Gastrografin through NG tube as this was a noncontrast CT scan and consider repeating CT scan with contrast versus follow-up KUBs. Will obtain abdominal multiview in the morning and make decision based on this study. Patient has multiple previous abdominal procedures. She has what sounds like aortic insufficiency significant enough to consider aortic valve replacement. I 've requested of Dr. Esparza that Dr. Richards be consulted to assess surgical risk. If she fails to improve or needs surgical intervention. We have an appropriate cardiac assessment to determine whether this should occur at our [facility] hospital, she should be transferred to a higher level of care. I requested operative reports from Jennifer don, which hopefully is both the recent Ronen fundoplication and possibly her previous hernia repairs, although patient seems less clear where her previous hernia surgeries were performed.
--- NOTE | 2017-03-20 10:18 | NURSING ---
Nurse calls radiology to inquire about KUB single view xray. Science Teacher states that she will be up shortly.
[2017-03-20] MEDS: Enoxaparin 30 MG/0.3 ML Syringe SC (10:23)
[2017-03-20] MEDS: Aspirin 300 MG Suppository RECTAL (10:26)
[2017-03-20] MEDS: Losartan Potassium 100 MG Tablet NG (10:37)
[2017-03-20] MEDS: Atenolol 25 MG Tablet NG (10:37)
--- NOTE | 2017-03-20 12:46 | PCM.CONS.C ---
Problem List (1) Aortic insufficiency Status: Acute Qualifiers: Cardiac valve disease etiology: nonrheumatic Qualified Code(s): I35.1 - Nonrheumatic aortic (valve) insufficiency (2) Cardiomyopathy Status: Chronic Qualifiers: Cardiomyopathy type: unspecified Qualified Code(s): I42.9 - Cardiomyopathy, unspecified (3) CAD (coronary artery disease) Status: Chronic Qualifiers: Coronary Disease-Associated Artery/Lesion type: [place] artery [place] vs. transplanted heart: [place] heart Associated angina: without angina Qualified Code(s): I25.10 - Atherosclerotic heart disease of [place] coronary artery without angina pectoris (4) Abnormal EKG Status: Chronic (5) Hypertension Status: Chronic Qualifiers: Hypertension type: essential hypertension Qualified Code(s): I10 - Essential (primary) hypertension (6) Secondary pulmonary arterial hypertension Status: Chronic (7) Small bowel obstruction Status: Acute Reason for Consult Date of Consultation: 03/20/17 History of Present Illness: The patient is a 81 year old white female with a past cardiovascular history of aortic valve insufficiency, cardiomyopathy, CAD-reported as non-angiographically significant, abnormal ECG, hypertension, pulmonary hypertension, who is now referred for cardiovascular evaluation in the setting of a small bowel obstruction. The patient has been undergoing evaluation care by Dr. Pete Clay of the [facility] for her aforementioned cardiovascular conditions. It appears this has included noninvasive and invasive evaluation. She had a transthoracic echocardiogram performed on 03/05/2017. The left ventricle was thought to demonstrate global left ventricular systolic dysfunction with an estimated LVEF of 45-50%, mild concentric LVH, mild MR, TR, moderately severe AI, trivial SC, and mild atherosclerosis of the aortic arch. The estimated RV systolic pressure was 33 mmHg. She underwent transesophageal echocardiogram on 03/05/2017. According to the report the left ventricle was moderately dilated with moderate global left ventricular systolic dysfunction with an estimated LVEF of 40-45% with a moderately dilated right ventricle, mild MR, trivial TR, moderate AI, mild atherosclerosis of the aortic arch, and no obvious left atrial appendage thrombus. She had a diagnostic cardiac catheterization performed on 03/05/2017. According to the report the left ventricle was not assessed, the left main coronary artery was normal, the LAD had no significant disease, the LCx had no significant disease, the RCA had mild luminal irregularities, there was moderate AI, elevation of the right heart pressures/pulmonary pressures-mild. At that time there was commented the patient was being referred to the [facility] for possible transcatheter aortic valve replacement for her aortic valve insufficiency and global left ventricular systolic dysfunction and pulmonary hypertension. In the interim the patient has presented to [facility] for concerns of abdominal discomfort. There are concerns of a small bowel obstruction by general surgery and radiologic findings. She has denied ongoing chest discomfort or worsening shortness of breath or dyspnea. There is been no near syncope or syncope. She has denied ongoing peripheral pitting edema to the best of her knowledge. She has had an ECG performed in the past. On 03/05/2017 it was interpreted as sinus bradycardia with an anteroseptal DE pattern of indeterminate age and a T-wave abnormality compatible with lateral myocardial ischemia. This has been repeated and has demonstrated similar type findings. At the moment she is being followed. She has an NG tube in place. She states she is passing flatus. She has had a follow-up abdominal/pelvic CT scan that suggests an developing distal small bowel obstruction per the radiology report. [] Past Medical History Allergies/Adverse Reactions: Allergies No Known Allergies Allergy (Unverified 03/19/17 23:39) Home Medications: Ambulatory Orders Medication Instructions Recorded allopurinol 300 mg tablet 300 mg PO QDAY 02/15/17 aspirin 81 mg tablet,delayed 81 mg PO QDAY 02/15/17 release atenolol 25 mg tablet 25 mg PO QDAY 02/15/17 hydralazine 25 mg tablet 1 tab PO TID tab 02/15/17 levothyroxine 75 mcg capsule 75 mcg PO SUTUWEFRSA cap 02/15/17 losartan 100 mg tablet 100 mg PO QDAY 02/15/17 multivitamin,gn-qyfu-upktbigc 1 tab PO QDAY 02/16/17 tablet furosemide 40 mg tablet 40 mg PO QDAY #90 tab 02/17/17 isosorbide mononitrate ER 30 mg 30 mg PO QDAY #30 tab 03/05/17 tablet,extended release 24 hr Levothyroxine [Synthroid] 1.5 tab PO MOTH 03/20/17 Past Medical History (Chronic Problems): Chronic Problems (Last Updated 02/23/17 @ 10:25 by Letty De Leon) Abnormal EKG (Chronic) Aortic stenosis (Chronic) Cardiomyopathy (Chronic) CAD (coronary artery disease) (Chronic) Dyspnea on exertion (Chronic) Obesity (Chronic) Hypertension (Chronic) Secondary pulmonary arterial hypertension (Chronic) Nonrheumatic aortic valve insufficiency (Chronic) Surgical History: herniorrhaphy, - - Hiatal hernia repair, multiple inguinal hernia repairs and what sounds like a small bowel resection with a previous right inguinal hernia repair Psychiatric History: No pertinent psych hx - *Family History Paternal Family History: Family History (Last Reviewed 02/16/17 @ 15:06 by Mary Rosario) Mother Hypertension Father Hypertension History Items: Heart Disease Smoking Status: Never smoker Tobacco Use: Non-smoker Alcohol: None Drugs: None Review of Systems - Review of Systems General: Denies: Fever, Night Sweats, Fatigue Cardiovascular: Denies: Chest Discomfort, Shortness of Breath, Orthopnea, PND, Peripheral Edema, Palpitations, Lightheadedness, Dizziness, Near Syncope, Syncope Respiratory: Denies: Cough, Sputum Production, Hemoptysis Gastrointestinal: Reports: Abdominal Discomfort. Denies: Hematemesis, Hematochezia, Melena Genitourinary: Denies: Dysuria, Hematuria Skin: Denies: Rash Subjectve: This is an 81-year-old white female who appears to be resting comfortably at the moment in no acute distress. Objective: Vital Signs Temp Pulse Resp BP Pulse Ox 97.9 F 57 L 16 153/89 H 98 03/20/17 10:22 03/20/17 10:22 03/20/17 10:22 03/20/17 10:22 03/20/17 10:22 Oxygen Flow Rate 3.5 Oxygen Delivery Method Nasal Cannula Weight: 208 lb 5.389 oz Body Mass Index (BMI) 39.3 Intake and Output for Last 24 Hours 03/18/17 03/19/17 03/20/17 23:59 23:59 23:59 Intake Total 716 / 716 Output Total 125 / 125 Balance 591 / 591 General: Awake, Alert, Oriented x 3, Cooperative, No Acute Distress, Obese Neck: No JVD Lungs: Clear to auscultation Cardiovascular: Regular Rhythm, Normal S1, Normal S2 Murmur Murmur: Grade 2/6, Mid Systolic, LLSB, LVOT, - - Grade 2/6: Soft: Diastolic murmur: Lower left sternal border Vascular: No Carotid Bruits Abdomen: Soft, Hypoactive Bowel Sounds Extremities: Trace RLE Edema, Trace LLE Edema 03/20/17 04:30: Sodium 143, Potassium 4.0, Chloride 103, Carbon Dioxide 32.0, Anion Gap 8, BUN 23 H, Creatinine 1.26 H, Est GFR (MDRD) Af Amer 52 L, Est GFR (MDRD) Non-Af 43 L, BUN/Creatinine Ratio 18.3, Glucose 134 H, Calcium 8.3 L, Troponin I < 0.02 03/20/17 04:30: WBC 9.6, RBC 4.33, Hgb 13.2, Hct 40.9, MCV 94.5, MCH 30.5, MCHC 32.3, RDW 14.4, RDW Differential 48.3 H, Plt Count 175, MPV 12.1 H, Immature Gran % (Auto) 0.200, Neut % (Auto) 80.8 H, Lymph % (Auto) 12.5 L, [place] % (Auto) 5.9, Eos % (Auto) 0.2, Baso % (Auto) 0.4, Absolute Neuts (auto) 7.8 H, Total Counted Not Reportable 03/20/17 08:35: Troponin I 0.02 Rhythm: Sinus rhythm EKG: As noted above ECHO: As noted above Cardiac Cath: As noted above Assessment/Plan 1. 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 There is concern that her aortic valve insufficiency may be having a negative impact on her left ventricular size and systolic function based upon the appearance of an underlying cardiomyopathy. Thus she has been treated medically and now referred to the [facility] for consideration for transcatheter aortic valve replacement. At the present time, with respect to her aortic valve disorder, she would need to be monitored for any obvious evidence of acute CHF or pulmonary edema. In the interim she would need continued medical management as deemed appropriate which could include agents such as dihydropyridine inhibitors or MANJU inhibitors/ARB's as well as other agents as needed such as rate control therapy, diuretic therapy, etc. 2. Cardiomyopathy The patient does have a cardiomyopathy. Based upon her reports there are concerns of left ventricular dysfunction. Again it appears that the concern is this is valvular related as the patient does not have angiographically significant appearing CAD to explain it. At the moment she is without any signs of acute CHF or pulmonary edema. However this could change depending upon her clinical status. She would need to continue medical management which would include beta-ciara therapy and afterload reducing therapy. However based upon the concerns of valvular involvement she has been evaluated as noted above and now referred to the [facility] for consideration for transcatheter aortic valve replacement. 3. CAD Based upon the patient's diagnostic cardiac catheterization appears she does have an element of CAD-mild. It appears she requires risk factor modification as deemed appropriate. 4. Abnormal ECG She does have an abnormal ECG as described above. She has undergone noninvasive and invasive cardiovascular evaluation as described above. She has not been found to have angiographically significant CAD requiring any type of catheter based or surgical based revascularization therapy. 5. Hypertension The patient is noted to have a history of hypertension. She will need to continue medical management. 6. Pulmonary hypertension Upon the patient's noninvasive and invasive studies there is concern that she has mild pulmonary hypertension. This may be secondary to her underlying left ventricular systolic dysfunction and/or any other underlying pulmonary related issue. She will need to continue medical management as deemed appropriate for this. 6. Small bowel obstruction The patient does have ongoing concern of of small bowel obstruction. She is being treated conservatively at the moment with NG tube. However she may require future general surgical intervention. If the patient does require future general surgical intervention, then, based upon the patient's aforementioned cardiovascular disease process with concerns of hemodynamically significant aortic valvular insufficiency, its negative impact on her left ventricular size and systolic function and subsequent pulmonary pressures, now being referred for tertiary care center evaluation/intervention, it may be reasonable to consider that the patient be transferred to a tertiary care center for further general surgical evaluation/intervention as the patient may need perioperative ICU care requiring [id number] in-house cardiovascular/pulmonary/critical care attending physician services/support, etc. Comment: The patient's case has been discussed and reviewed with the patient, her family member present, Dr. Stein, and Dr. Stuart. This note was generated with [employer] dictation software. It may contain incorrect words, spelling, and punctuation that were not noted in checking the note before signing.
--- NOTE | 2017-03-20 12:59 | CON.PCM_ITS ---
Problem List (1) Aortic insufficiency Status: Acute Qualifiers: Cardiac valve disease etiology: nonrheumatic Qualified Code(s): I35.1 - Nonrheumatic aortic (valve) insufficiency (2) Cardiomyopathy Status: Chronic Qualifiers: Cardiomyopathy type: unspecified Qualified Code(s): I42.9 - Cardiomyopathy , unspecified (3) CAD (coronary artery disease) Status: Chronic Qualifiers: Coronary Disease-Associated Artery/Lesion type: menominee artery [place] vs. transplanted heart: menominee heart Associated angina: without angina Qualified Code(s): I25.10 - Atherosclerotic heart disease of menominee coronary artery without angina pectoris (4) Abnormal EKG Status: Chronic (5) Hypertension Status: Chronic Qualifiers: Hypertension type: essential hypertension Qualified Code(s): I10 - Essential (primary) hypertension (6) Secondary pulmonary arterial hypertension Status: Chronic (7) Small bowel obstruction Status: Acute Reason for Consult Date of Consultation: 03/20/17 History of Present Illness: The patient is a 81 year old white female with a past cardiovascular history of aortic valve insufficiency, cardiomyopathy, CAD-reported as non- angiographically significant, abnormal ECG, hypertension, pulmonary hypertension , who is now referred for cardiovascular evaluation in the setting of a small bowel obstruction. The patient has been undergoing evaluation care by Dr. Pete Clay of the [facility] for her aforementioned cardiovascular conditions. It appears this has included noninvasive and invasive evaluation. She had a transthoracic echocardiogram performed on 03/05/2017. The left ventricle was thought to demonstrate global left ventricular systolic dysfunction with an estimated LVEF of 45-50%, mild concentric LVH, mild MR, TR, moderately severe AI, trivial VA, and mild atherosclerosis of the aortic arch. The estimated RV systolic pressure was 33 mmHg. She underwent transesophageal echocardiogram on 03/05/2017. According to the report the left ventricle was moderately dilated with moderate global left ventricular systolic dysfunction with an estimated LVEF of 40-45% with a moderately dilated right ventricle, mild MR, trivial TR, moderate AI, mild atherosclerosis of the aortic arch, and no obvious left atrial appendage thrombus. She had a diagnostic cardiac catheterization performed on 03/05/2017. According to the report the left ventricle was not assessed, the left main coronary artery was normal, the LAD had no significant disease, the LCx had no significant disease, the RCA had mild luminal irregularities, there was moderate AI, elevation of the right heart pressures/pulmonary pressures-mild. At that time there was commented the patient was being referred to the [facility] for possible transcatheter aortic valve replacement for her aortic valve insufficiency and global left ventricular systolic dysfunction and pulmonary hypertension. In the interim the patient has presented to [facility] for concerns of abdominal discomfort. There are concerns of a small bowel obstruction by general surgery and radiologic findings. She has denied ongoing chest discomfort or worsening shortness of breath or dyspnea. There is been no near syncope or syncope. She has denied ongoing peripheral pitting edema to the best of her knowledge. She has had an ECG performed in the past. On 03/05/2017 it was interpreted as sinus bradycardia with an anteroseptal KS pattern of indeterminate age and a T- wave abnormality compatible with lateral myocardial ischemia. This has been repeated and has demonstrated similar type findings. At the moment she is being followed. She has an NG tube in place. She states she is passing flatus. She has had a follow-up abdominal/pelvic CT scan that suggests an developing distal small bowel obstruction per the radiology report. [] Past Medical History Allergies/Adverse Reactions: Allergies No Known Allergies Allergy (Unverified 03/19/17 23:39) Home Medications: Ambulatory Orders Medication Instructions Recorded allopurinol 300 mg tablet 300 mg PO QDAY 02/15/17 aspirin 81 mg tablet,delayed 81 mg PO QDAY 02/15/17 release atenolol 25 mg tablet 25 mg PO QDAY 02/15/17 hydralazine 25 mg tablet 1 tab PO TID tab 02/15/17 levothyroxine 75 mcg capsule 75 mcg PO SUTUWEFRSA cap 02/15/17 losartan 100 mg tablet 100 mg PO QDAY 02/15/17 multivitamin,fk-qtyi-dzeabqmd 1 tab PO QDAY 02/16/17 tablet furosemide 40 mg tablet 40 mg PO QDAY #90 tab 02/17/17 isosorbide mononitrate ER 30 mg 30 mg PO QDAY #30 tab 03/05/17 tablet,extended release 24 hr Levothyroxine [Synthroid] 1.5 tab PO MOTH 03/20/17 Past Medical History (Chronic Problems): Chronic Problems (Last Updated 02/23/17 @ 10:25 by Letty De Leon) Abnormal EKG (Chronic) Aortic stenosis (Chronic) Cardiomyopathy (Chronic) CAD (coronary artery disease) (Chronic) Dyspnea on exertion (Chronic) Obesity (Chronic) Hypertension (Chronic) Secondary pulmonary arterial hypertension (Chronic) Nonrheumatic aortic valve insufficiency (Chronic) Surgical History: herniorrhaphy, - - Hiatal hernia repair, multiple inguinal hernia repairs and what sounds like a small bowel resection with a previous right inguinal hernia repair Psychiatric History: No pertinent psych hx - *Family History Paternal Family History: Family History (Last Reviewed 02/16/17 @ 15:06 by Mary Rosario) Mother Hypertension Father Hypertension History Items: Heart Disease Smoking Status: Never smoker Tobacco Use: Non-smoker Alcohol: None Drugs: None Review of Systems - Review of Systems General: Denies: Fever, Night Sweats, Fatigue Cardiovascular: Denies: Chest Discomfort, Shortness of Breath, Orthopnea, PND, Peripheral Edema, Palpitations, Lightheadedness, Dizziness, Near Syncope, Syncope Respiratory: Denies: Cough, Sputum Production, Hemoptysis Gastrointestinal: Reports: Abdominal Discomfort. Denies: Hematemesis, Hematochezia, Melena Genitourinary: Denies: Dysuria, Hematuria Skin: Denies: Rash Subjectve: This is an 81-year-old white female who appears to be resting comfortably at the moment in no acute distress. Objective: Vital Signs Temp Pulse Resp BP Pulse Ox 97.9 F 57 L 16 153/89 H 98 03/20/17 10:22 03/20/17 10:22 03/20/17 10:22 03/20/17 10:22 03/20/17 10:22 Oxygen Flow Rate 3.5 Oxygen Delivery Method Nasal Cannula Weight: 208 lb 5.389 oz Body Mass Index (BMI) 39.3 Intake and Output for Last 24 Hours 03/18/17 03/19/17 03/20/17 23:59 23:59 23:59 Intake Total 716 / 716 Output Total 125 / 125 Balance 591 / 591 General: Awake, Alert, Oriented x 3, Cooperative, No Acute Distress, Obese Neck: No JVD Lungs: Clear to auscultation Cardiovascular: Regular Rhythm, Normal S1, Normal S2 Murmur Murmur: Grade 2/6, Mid Systolic, LLSB, LVOT, - - Grade 2/6: Soft: Diastolic murmur: Lower left sternal border Vascular: No Carotid Bruits Abdomen: Soft, Hypoactive Bowel Sounds Extremities: Trace RLE Edema, Trace LLE Edema 03/20/17 04:30: Sodium 143, Potassium 4.0, Chloride 103, Carbon Dioxide 32.0, Anion Gap 8, BUN 23 H, Creatinine 1.26 H, Est GFR (MDRD) Af Amer 52 L, Est GFR ( MDRD) Non-Af 43 L, BUN/Creatinine Ratio 18.3, Glucose 134 H, Calcium 8.3 L, Troponin I < 0.02 03/20/17 04:30: WBC 9.6, RBC 4.33, Hgb 13.2, Hct 40.9, MCV 94.5, MCH 30.5, MCHC 32.3, RDW 14.4, RDW Differential 48.3 H, Plt Count 175, MPV 12.1 H, Immature Gran % (Auto) 0.200, Neut % (Auto) 80.8 H, Lymph % (Auto) 12.5 L, [place] % (Auto) 5.9, Eos % (Auto) 0.2, Baso % (Auto) 0.4, Absolute Neuts (auto) 7.8 H, Total Counted Not Reportable 03/20/17 08:35: Troponin I 0.02 Rhythm: Sinus rhythm EKG: As noted above ECHO: As noted above Cardiac Cath: As noted above Assessment/Plan 1. 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 There is concern that her aortic valve insufficiency may be having a negative impact on her left ventricular size and systolic function based upon the appearance of an underlying cardiomyopathy. Thus she has been treated medically and now referred to the [facility] for consideration for transcatheter aortic valve replacement. At the present time, with respect to her aortic valve disorder, she would need to be monitored for any obvious evidence of acute CHF or pulmonary edema. In the interim she would need continued medical management as deemed appropriate which could include agents such as dihydropyridine inhibitors or MANJU inhibitors/ARB's as well as other agents as needed such as rate control therapy, diuretic therapy, etc. 2. Cardiomyopathy The patient does have a cardiomyopathy. Based upon her reports there are concerns of left ventricular dysfunction. Again it appears that the concern is this is valvular related as the patient does not have angiographically significant appearing CAD to explain it. At the moment she is without any signs of acute CHF or pulmonary edema. However this could change depending upon her clinical status. She would need to continue medical management which would include beta-ciara therapy and afterload reducing therapy. However based upon the concerns of valvular involvement she has been evaluated as noted above and now referred to the [facility] for consideration for transcatheter aortic valve replacement. 3. CAD Based upon the patient's diagnostic cardiac catheterization appears she does have an element of CAD-mild. It appears she requires risk factor modification as deemed appropriate. 4. Abnormal ECG She does have an abnormal ECG as described above. She has undergone noninvasive and invasive cardiovascular evaluation as described above. She has not been found to have angiographically significant CAD requiring any type of catheter based or surgical based revascularization therapy. 5. Hypertension The patient is noted to have a history of hypertension. She will need to continue medical management. 6. Pulmonary hypertension Upon the patient's noninvasive and invasive studies there is concern that she has mild pulmonary hypertension. This may be secondary to her underlying left ventricular systolic dysfunction and/or any other underlying pulmonary related issue. She will need to continue medical management as deemed appropriate for this. 6. Small bowel obstruction The patient does have ongoing concern of of small bowel obstruction. She is being treated conservatively at the moment with NG tube. However she may require future general surgical intervention. If the patient does require future general surgical intervention, then, based upon the patient's aforementioned cardiovascular disease process with concerns of hemodynamically significant aortic valvular insufficiency, its negative impact on her left ventricular size and systolic function and subsequent pulmonary pressures, now being referred for tertiary care center evaluation/ intervention, it may be reasonable to consider that the patient be transferred to a tertiary care center for further general surgical evaluation/intervention as the patient may need perioperative ICU care requiring [id number] in- house cardiovascular/pulmonary/critical care attending physician services/ support, etc. Comment: The patient's case has been discussed and reviewed with the patient, her family member present, Dr. Stein, and Dr. Stuart. This note was generated with [employer] dictation software. It may contain incorrect words, spelling, and punctuation that were not noted in checking the note before signing.
--- NOTE | 2017-03-20 14:50 | CASEMGMT ---
Social Work Note Updated by social secretary that pt's brother was requesting SW's assistance with completing HCPOA. In to pt's room to confirm that she is alert and oriented, and pt resting. Family requests that SW return at a later time. Will f/u Wednesday as time allows. Melanie Vargas, SARKIS NICHOLEW
--- NOTE | 2017-03-20 23:50 | CT_ITS ---
STUDY: CT ABDOMEN AND PELVIS WITHOUT CONTRAST REASON FOR EXAM: Female, 81 years old. Upper abdominal pain and distention. Belching. 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 RADIATION DOSAGE (If Supplied By Facility): CTDIvol = ( 23.67 ) mGy, DLP = ( 1301.28 ) mGycm TECHNIQUE: Transaxial images were obtained from the dome of the diaphragm to the symphysis pubis without oral contrast, and without intravenous contrast. Sagittal and coronal images were reconstructed. Individualized dose optimization techniques were used for this CT. COMPARISON: None. FINDINGS: The visualized lung bases are unremarkable. Borderline cardiomegaly. Small pericardial effusion. Coronary artery calcifications. Calcified right hilar lymph nodes. Mildly elevated right hemidiaphragm. Right lower lobe subsegmental atelectasis. Small hiatal hernia. Normal liver. Normal gallbladder and extrahepatic biliary system. Normal spleen. Normal pancreas. Normal bilateral adrenal glands. Normal right kidney. Left renal atrophy. Surgical clips at the gastroesophageal junction. Stomach filled with fluid and debris. There are multiple air-fluid levels in small bowel which is is mildly distended up to 2.7 cm. Orientation of loops of small bowel in the pelvis suggest a developing distal small bowel obstruction axial image 145 series 2. Large bowel is grossly normal.. The appendix is well visualized axial image 91 series 2 and coronal images 72 through 77 series 601 and appears normal. Normal abdominal aorta. Normal inferior vena cava. Normal retroperitoneum. No intra-abdominal free air. Normal urinary bladder. There is absence of the uterus consistent with a prior hysterectomy. No adnexal masses seen. Normal abdominal wall. Multilevel degenerative changes of the lower thoracic and lumbar spine. CT/Abdomen/Pelvis without Cont IMPRESSION: Developing distal small bowel obstruction. Left renal atrophy. No intra-abdominal free air. Coronary artery calcifications. Small pericardial effusion. Mildly elevated right hemidiaphragm with right lower lobe subsegmental atelectasis. Small hiatal hernia. Old granulomatous disease. Electronically Signed: Narayan Kirkpatrick MD at 1:25 EST , Service support ,
[2017-03-21] VITALS (10 sets, daily range): BP systolic 135–192; BP diastolic 52–91; PULSE 55–70; RESP 16–20; TEMP 36.4–36.8; O2SAT 91–98
[2017-03-21] MEDS: 0.9% NaCl Peripheral Flush Adult/Peds IV (04:57)
--- NOTE | 2017-03-21 05:30 | RAD_ITS ---
STUDY: X-RAY - ABDOMEN/PELVIS REASON FOR EXAM: Female, 81 years old. Small bowel obstruction. TECHNIQUE: AP supine abdomen. COMPARISON: March 20, 2017. FINDINGS: Normal visualized lung bases. Nasogastric tube has been advanced and the tip is present in the left midabdomen in the region of the gastric body. There is an unremarkable bowel gas pattern. There is no demonstrated free abdominal air. The visualized liver, spleen and kidneys are grossly normal in size and morphology. Normal soft tissue structures. Degenerative changes of the lumbar spine. Surgical clips left upper quadrant and in the left hemipelvis. RAD/Abd Inc Decub and/or Erect IMPRESSION: Nonspecific bowel gas pattern without evidence of obstruction improved since the prior exam. Nasogastric tube tip in the gastric body. Electronically Signed: Narayan Kirkpatrick MD at 6:06 EST , Service support ,
[2017-03-21] MEDS: 0.9% Normal Saline 1,000 ML 75 ML IV ×2 (06:36→19:30)
[2017-03-21 06:51] LABS: Absolute Lymphocyte Count 1.09 X10^3/ul (0.83-4.51); Absolute Neutrophil Count 4.9 X10^3/uL (2.0-7.7); Basophil# 0.03 X10^3/uL; Basophil% 0.4 % (0-1); Eosinophil# 0.11 X10^3/uL; Eosinophils% 1.6 % (0-5); Hematocrit 40.1 % (37-47); Hemoglobin 12.1 g/dl (12.0-15.0); Lymphocyte # 1.09 X10^3/ul (4.0); Lymphocyte % 16.1 % (19-41); Mean Corp Hgb Conc 30.2 g/gl (32-36); Mean Corpuscular Hgb 29.6 pg (27.0-32.0); Mean Platelet Vol. 12.2 fl (6.2-12.0); Monocyte# 0.64 X10^3/uL; Monocyte% 9.5 % (0-10); Neutrophil % 72.4 % (47-70); Platelet Count 161 K/mm3 (150-450); RBC Distribution Width CV 14.8 % (11.6-14.6); Red Blood Count 4.09 M/mm3 (4.2-5.4); White Blood Count 6.8 K/mm3 (4.4-11.0)
[2017-03-21 06:56] LABS: POSITIVE COUNT NO; POSITIVE DIFFERENTIAL NO; POSITIVE MORPHOLOGY NO
[2017-03-21 07:24] LABS: ALB/GLOB Ratio 0.9 RATIO (0.9-2.4); AST(SGOT) 22 U/L (15-37); Alanine Aminotransfer ALT/SGPT 21 U/L (13-56); Albumin, Serum 2.9 g/dL (3.2-5.0); Alkaline Phosphatase 57 U/L (45-117); Anion Gap 7 (5-15); BUN 16 mg/dL (7-18); BUN/Creat Ratio 17.2 RATIO (10-20); Calcium,Total 7.9 mg/dL (8.5-10.1); Chloride 108 mmol/L (98-107); Creatinine, Serum 0.93 mg/dL (0.55-1.02); EST Glomerular Filtration Rate 61 mL/min (>60); Est Glom Filt Rate - Afr Amer 74 mL/min (>60); Globulin 3.2 g/dL (2.2-4.2); Glucose 110 mg/dL (74-106); Protein, Total 6.1 g/dL (6.4-8.2); Sodium Level 144 mmol/L (136-145)
[2017-03-21] MEDS: Losartan Potassium 100 MG Tablet NG (08:26)
[2017-03-21] MEDS: Atenolol 25 MG Tablet NG (08:27)
--- NOTE | 2017-03-21 09:19 | PCM.PN.SRG ---
Patient Problems: Active and Suspected Problems (Last Updated 02/23/17 @ 10:25 by Letty De Leon) Small bowel obstruction (Acute) Hypothyroid (Acute) Aortic insufficiency (Acute) Subjective: passing flatus, no stool yet.-No abdominal pain, complained of nose irritation by NG tube - Physical Exam General: Alert, Oriented x3 Lungs: Clear to auscultation, Normal air movement Cardiovascular: Regular rate, Murmur Abdomen: Bowel Sounds Present, Soft, Non Tender Vital Signs Temp Pulse Resp BP Pulse Ox 97.6 F L 70 20 H 155/78 H 91 03/21/17 08:20 03/21/17 08:20 03/21/17 08:20 03/21/17 08:20 03/21/17 08:20 Oxygen Flow Rate 2 Oxygen Delivery Method Nasal Cannula Weight: 94.5 kg Body Mass Index (BMI) 39.3 Intake and Output for Last 24 Hours 03/19/17 03/20/17 03/21/17 23:59 23:59 23:59 Intake Total 1218 / 1218 964 / 964 Output Total 525 / 525 270 / 270 Balance 693 / 693 694 / 694 Laboratory Tests Past 24 Hrs 03/21/17 03/21/17 06:28 06:28 WBC 6.8 RBC 4.09 L Hgb 12.1 Hct 40.1 MCV 98.0 MCH 29.6 MCHC 30.2 L RDW 14.8 H RDW Differential 53.0 H Plt Count 161 MPV 12.2 H Immature Gran % (Auto) 0.000 Neut % (Auto) 72.4 H Lymph % (Auto) 16.1 L [place] % (Auto) 9.5 Eos % (Auto) 1.6 Baso % (Auto) 0.4 Absolute Neuts (auto) 4.9 Absolute Lymphs (auto) 1.09 Total Counted Not Reportable Sodium 144 Potassium 4.0 Chloride 108 H Carbon Dioxide 29.0 Anion Gap 7 BUN 16 Creatinine 0.93 Estim Creat Clear Calc 35.80 Est GFR (MDRD) Af Amer 74 Est GFR (MDRD) Non-Af 61 BUN/Creatinine Ratio 17.2 Glucose 110 H Calcium 7.9 L Total Bilirubin 0.60 AST 22 ALT 21 Alkaline Phosphatase 57 Total Protein 6.1 L Albumin 2.9 L Globulin 3.2 Albumin/Globulin Ratio 0.9 Assessment/Plan Active and Suspected Problems (Last Updated 02/23/17 @ 10:25 by Letty De Leon) Small bowel obstruction (Acute) Hypothyroid (Acute) Aortic insufficiency (Acute) questionable partial small bowel obstruction, aortic insufficiency, consideration for TAVR KUB today demonstrates a non-specific bowel gas pattern with air in the colon and no significant distended small bowel. NG tube will beremoved and will start clear liquids. . Patient has multiple previous abdominal procedures. She has what sounds like aortic insufficiency significant enough to consider aortic valve replacement. Appreciate Dr. Richards's consultation. I requested operative reports from Jennifer don, which hopefully is both the recent Ronen fundoplication and possibly her previous hernia repairs, although patient seems less clear where her previous hernia surgeries were performed.
--- NOTE | 2017-03-21 09:23 | PN_ITS ---
Patient Problems: Active and Suspected Problems (Last Updated 02/23/17 @ 10:25 by Letty De Leon) Small bowel obstruction (Acute) Hypothyroid (Acute) Aortic insufficiency (Acute) Subjective: Patient was seen and examined today, she complains of having a dry mouth, I gave her some ice chips this morning, abdominal x-ray showed nonspecific gas pattern, surgery talked with me today and stated that they remove the NG tube. Patient's creatinine is in the normal range today, she is passing flatus but no bowel movements. - Physical Exam General: Alert, Oriented x3, Cooperative, No apparent distress, Well developed, Well nourished HEENT: Atraumatic, PERRLA, EOMI, Normocephalic Oral: Dry Mucosa Neck: Supple, No JVD, No Nuchal Rigidity, Trachea Midline, Thyroid Normal Size and Texture Lungs: Clear to auscultation, Normal air movement, No rhonchi, No wheeze, No rales Cardiovascular: Regular rate, Regular Rhythm, No Ectopic Activity, PMI Normal, No rub noted, No Gallop Abdomen: Bowel Sounds Present, Soft, Non Tender, Non-Distended Extremities: No edema, Capillary Refill Less than 3 Seconds Skin: No rashes, No breakdown Musculoskeletal: No Tenderness to Palpation of Joints or Extremities Neurological: Cranial nerves II-XII grossly intact, Neuro grossly intact, Sensory exam intact to light touch and pain, Coordination normal Psych/Mental Status: Normal Affect, Appropriate, Alert and oriented to time, place, person, mood and affect Vital Signs Temp Pulse Resp BP Pulse Ox 97.6 F L 70 20 H 155/78 H 91 03/21/17 08:20 03/21/17 08:20 03/21/17 08:20 03/21/17 08:20 03/21/17 08:20 Oxygen Flow Rate 2 Oxygen Delivery Method Nasal Cannula Weight: 94.5 kg Body Mass Index (BMI) 39.3 Intake and Output for Last 24 Hours 03/19/17 03/20/17 03/21/17 23:59 23:59 23:59 Intake Total 1218 / 1218 964 / 964 Output Total 525 / 525 270 / 270 Balance 693 / 693 694 / 694 Laboratory Tests Past 24 Hrs 03/21/17 03/21/17 06:28 06:28 WBC 6.8 RBC 4.09 L Hgb 12.1 Hct 40.1 MCV 98.0 MCH 29.6 MCHC 30.2 L RDW 14.8 H RDW Differential 53.0 H Plt Count 161 MPV 12.2 H Immature Gran % (Auto) 0.000 Neut % (Auto) 72.4 H Lymph % (Auto) 16.1 L [place] % (Auto) 9.5 Eos % (Auto) 1.6 Baso % (Auto) 0.4 Absolute Neuts (auto) 4.9 Absolute Lymphs (auto) 1.09 Total Counted Not Reportable Sodium 144 Potassium 4.0 Chloride 108 H Carbon Dioxide 29.0 Anion Gap 7 BUN 16 Creatinine 0.93 Estim Creat Clear Calc 35.80 Est GFR (MDRD) Af Amer 74 Est GFR (MDRD) Non-Af 61 BUN/Creatinine Ratio 17.2 Glucose 110 H Calcium 7.9 L Total Bilirubin 0.60 AST 22 ALT 21 Alkaline Phosphatase 57 Total Protein 6.1 L Albumin 2.9 L Globulin 3.2 Albumin/Globulin Ratio 0.9 Assessment/Plan Active and Suspected Problems (Last Updated 02/23/17 @ 10:25 by Letty De Leon) Small bowel obstruction (Acute) Hypothyroid (Acute) Aortic insufficiency (Acute) #1 acute small bowel obstruction-resolving at this time, again NG was removed today, patient will be on sips and chips, surgery participating in her care #2 acute kidney injury-resolved at this time #3 Aortic insufficiency #4 pulmonary hypertension #5 hypertension #6 coronary artery disease-stable #7 cardiomyopathy-most probable valvular in nature Code Visit Inpatient E&M: 54917 Subs Hosp L2
[2017-03-21] MEDS: Enoxaparin 30 MG/0.3 ML Syringe SC (10:58)
[2017-03-21] MEDS: Nystatin Powder 15gm Bottle 1 APPLIC TOPICAL ×2 (10:58→21:58)
[2017-03-21] MEDS: Aspirin 81 MG TAB.CHEW PO (12:01)
--- NOTE | 2017-03-21 13:04 | PCM.PN.CARD ---
Subjectve: The patient is awake and alert. Her NG tube has been removed. She has been allowed to be up in the chair. She states overall she feels better. Objective: Vital Signs Temp Pulse Resp BP Pulse Ox 98.2 F 62 18 135/68 H 96 03/21/17 10:20 03/21/17 10:20 03/21/17 10:20 03/21/17 10:20 03/21/17 11:25 Oxygen Flow Rate 2 Oxygen Delivery Method Nasal Cannula Weight: 208 lb 5.389 oz Body Mass Index (BMI) 39.3 Intake and Output for Last 24 Hours 03/19/17 03/20/17 03/21/17 23:59 23:59 23:59 Intake Total 1218 / 1218 1624 / 1624 Output Total 525 / 525 570 / 570 Balance 693 / 693 1054 / 1054 General: Awake, Alert, Oriented x 3, Cooperative, No Acute Distress, Obese Lungs: Clear to auscultation Cardiovascular: Regular Rhythm, Normal S1, Normal S2 Murmur Murmur: Grade 2/6, Mid Systolic, LLSB, LVOT, - - Grade 2/6: Soft: Diastolic murmur: Lower left sternal border Abdomen: Bowel Sounds Present, Soft Extremities: No edema 03/21/17 06:28: WBC 6.8, RBC 4.09 L, Hgb 12.1, Hct 40.1, MCV 98.0, MCH 29.6, MCHC 30.2 L, RDW 14.8 H, RDW Differential 53.0 H, Plt Count 161, MPV 12.2 H, Immature Gran % (Auto) 0.000, Neut % (Auto) 72.4 H, Lymph % (Auto) 16.1 L, [place] % (Auto) 9.5, Eos % (Auto) 1.6, Baso % (Auto) 0.4, Absolute Neuts (auto) 4.9, Total Counted Not Reportable 03/21/17 06:28: Sodium 144, Potassium 4.0, Chloride 108 H, Carbon Dioxide 29.0, Anion Gap 7, BUN 16, Creatinine 0.93, Est GFR (MDRD) Af Amer 74, Est GFR (MDRD) Non-Af 61, BUN/Creatinine Ratio 17.2, Glucose 110 H, Calcium 7.9 L, Total Bilirubin 0.60 Assessment/Plan 1. 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 There is concern that her aortic valve insufficiency may be having a negative impact on her left ventricular size and systolic function based upon the appearance of an underlying cardiomyopathy. Thus she has been treated medically and now referred to the [facility] for consideration for transcatheter aortic valve replacement. States she has not heard from the [facility] with respect to outpatient cardiovascular consultation appointment, etc. as of yet. At the present time, with respect to her aortic valve disorder, she would need to be monitored for any obvious evidence of acute CHF or pulmonary edema. In the interim she would need continued medical management as deemed appropriate which could include agents such as dihydropyridine inhibitors or MANJU inhibitors/ARB's as well as other agents as needed such as rate control therapy, diuretic therapy, etc. 2. Cardiomyopathy The patient does have a cardiomyopathy. Based upon her reports there are concerns of left ventricular dysfunction. Again it appears that the concern is this is valvular related as the patient does not have angiographically significant appearing CAD to explain it. At the moment she is without any signs of acute CHF or pulmonary edema. However this could change depending upon her clinical status. She would need to continue medical management which would include beta-ciara therapy and afterload reducing therapy. However based upon the concerns of valvular involvement she has been evaluated as noted above and now referred to the [facility] for consideration for transcatheter aortic valve replacement. 3. CAD Based upon the patient's diagnostic cardiac catheterization appears she does have an element of CAD-mild. It appears she requires risk factor modification as deemed appropriate. 4. Abnormal ECG She does have an abnormal ECG as described above. She has undergone noninvasive and invasive cardiovascular evaluation as described above. She has not been found to have angiographically significant CAD requiring any type of catheter based or surgical based revascularization therapy. 5. Hypertension The patient is noted to have a history of hypertension. She will need to continue medical management. 6. Pulmonary hypertension Upon the patient's noninvasive and invasive studies there is concern that she has mild pulmonary hypertension. This may be secondary to her underlying left ventricular systolic dysfunction and/or any other underlying pulmonary related issue. She will need to continue medical management as deemed appropriate for this. 6. Small bowel obstruction The patient does have ongoing concern of of small bowel obstruction. She is being treated conservatively at the moment with NG tube. However she may require future general surgical intervention. Overall, the present time, she will continue to be followed by internal medicine and general surgery. Comment: The patient's case has been discussed and reviewed with the patient and Dr. Stein. This note was generated with [employer] dictation software. It may contain incorrect words, spelling, and punctuation that were not noted in checking the note before signing.
[2017-03-22 00:30] VITALS: BP 171/69
[2017-03-22 03:50] VITALS: BP 162/67; PULSE 71; RESP 20; TEMP 36.8; O2SAT 96
[2017-03-22 04:00] VITALS: PULSE 71; RESP 20; O2SAT 96
[2017-03-22] MEDS: Levothyroxine 75 MCG Tablet 112.5 MCG PO (06:38)
--- NOTE | 2017-03-22 06:45 | RAD_ITS ---
STUDY: X-RAY - ABDOMEN/PELVIS REASON FOR EXAM: Female, 81 years old. Small bowel obstruction. TECHNIQUE: AP supine and upright views of the abdomen and pelvis. COMPARISON: Comparison is made with prior examination dated March 21, 2017. FINDINGS: Elevation of the right hemidiaphragm. Increased markings of the lung bases suggestive of bibasilar atelectasis and/or infiltrates. The nasogastric tube has been removed. There is an unremarkable bowel gas pattern. There is no demonstrated free abdominal air. The visualized liver, spleen and kidneys are grossly normal in size and morphology. Normal soft tissue structures. There are diffuse degenerative changes of the visualized lumbar spine. RAD/Abd Inc Decub and/or Erect IMPRESSION: Bibasilar atelectasis and/or infiltrations. The nasogastric tube has been removed. Electronically Signed: Anthony Talley MD at 8:18 EST Tel [phone], Service support ,
[2017-03-22] MEDS: 0.9% NaCl Peripheral Flush Adult/Peds IV (06:53)
[2017-03-22 07:00] VITALS: O2SAT 95
[2017-03-22 08:24] VITALS: BP 161/89; PULSE 67; RESP 16; TEMP 36.8; O2SAT 96
[2017-03-22] MEDS: Aspirin 81 MG TAB.CHEW PO (08:38)
[2017-03-22] MEDS: Losartan Potassium 100 MG Tablet PO (08:39)
[2017-03-22] MEDS: Enoxaparin 30 MG/0.3 ML Syringe SC (08:39)
[2017-03-22] MEDS: Nystatin Powder 15gm Bottle 1 APPLIC TOPICAL (08:40)
[2017-03-22] MEDS: Atenolol 25 MG Tablet PO (08:40)
[2017-03-22] MEDS: 0.9% Normal Saline 1,000 ML 75 ML IV (08:47)
--- NOTE | 2017-03-22 13:31 | CASEMGMT ---
RN UZIEL Note: Intro role of CM to patient and her son. Discussed dc planning. RN UZIEL spoke w/oswaldo Avendaño to order PT/OT. -Pt states she had Home Health on dc from [place] last fall, none active now. She states she is ambulatory in home, has Meals on Wheels to provide lunches, but is able to do simple cooking, cleaning. Neighbor friend assists with taking out trash, transportation needs. Granddaughter assists with laundry. -Pt does not feel she will need HHS, but if it is recommended, she is agreeable to [facility]. (She had [facility] in past, but requested not to refer to them). Will continue to follow PT/OT evaluations and assist w/dc planning needs if they arise. Maggie PATEL RN ACM
[2017-03-22 14:01] VITALS: BP 147/73; PULSE 64; RESP 16; TEMP 36.7; O2SAT 95
[2017-03-22] MEDS: Furosemide 40 MG Tablet PO (16:00)
--- NOTE | 2017-03-22 17:06 | CASEMGMT ---
Social Work Note Face to face with pt and her brother. Introduced self and role at [facility]. Completed HCPOA paperwork. Copy placed on chart and originals in SNF packet. Melanie Vargas MSW UROLOGIST
--- NOTE | 2017-03-22 18:57 | PCM.DC ---
- Discharge Diagnoses Current Active Problems: Current Active and Chronic Problems (Last Updated 02/23/17 @ 10:25 by Letty De Leon) Small bowel obstruction (Acute) Hypothyroid (Acute) Abnormal EKG (Chronic) Aortic stenosis (Chronic) Aortic insufficiency (Acute) Cardiomyopathy (Chronic) CAD (coronary artery disease) (Chronic) You will use the following diet at home:: No restrictions Your food should be the consistency of: Regular Your liquids should be the consistency of: Regular/Thin Discharge Activity: Return to Normal Activity Weight Bearing Status: Full weight bearing Allergies/Adverse Reactions: Allergies No Known Allergies Allergy (Unverified 03/19/17 23:39) Medications to take at Discharge allopurinol 300 mg tablet 300 mg PO QDAY 02/15/17 aspirin 81 mg tablet,delayed release 81 mg PO QDAY 02/15/17 atenolol 25 mg tablet 25 mg PO QDAY 02/15/17 hydralazine 25 mg tablet 1 tab PO TID tab 02/15/17 levothyroxine 75 mcg capsule 75 mcg PO SUTUWEFRSA cap 02/15/17 losartan 100 mg tablet 100 mg PO QDAY 02/15/17 multivitamin,ip-geih-pphujuua tablet 1 tab PO QDAY 02/16/17 furosemide 40 mg tablet 40 mg PO QDAY #90 tab 02/17/17 isosorbide mononitrate ER 30 mg tablet,extended release 24 hr 30 mg PO QDAY #30 tab 03/05/17 Levothyroxine [Synthroid] 1.5 tab PO MOTH 03/20/17 Menthol/Lanolin/Calamine/Znox [Calmoseptine Ointment] 1 applic TOPICAL BID tube 03/22/17 Nystatin Powder [Mycostatin Powder] 1 applic TOPICAL BID bottle 03/22/17 Primary Care Physician: Pete Butler DO [Primary Care Provider] - Please follow up with your Primary Care Physician in: in 2-3 weeks
--- NOTE | 2017-03-22 19:01 | DCINST_ITS ---
- Discharge Diagnoses Current Active Problems: Current Active and Chronic Problems (Last Updated 02/23/17 @ 10:25 by Letty De Leon ) Small bowel obstruction (Acute) Hypothyroid (Acute) Abnormal EKG (Chronic) Aortic stenosis (Chronic) Aortic insufficiency (Acute) Cardiomyopathy (Chronic) CAD (coronary artery disease) (Chronic) You will use the following diet at home:: No restrictions Your food should be the consistency of: Regular Your liquids should be the consistency of: Regular/Thin Discharge Activity: Return to Normal Activity Weight Bearing Status: Full weight bearing Allergies/Adverse Reactions: Allergies No Known Allergies Allergy (Unverified 03/19/17 23:39) Medications to take at Discharge allopurinol 300 mg tablet 300 mg PO QDAY 02/15/17 aspirin 81 mg tablet,delayed release 81 mg PO QDAY 02/15/17 atenolol 25 mg tablet 25 mg PO QDAY 02/15/17 hydralazine 25 mg tablet 1 tab PO TID tab 02/15/17 levothyroxine 75 mcg capsule 75 mcg PO SUTUWEFRSA cap 02/15/17 losartan 100 mg tablet 100 mg PO QDAY 02/15/17 multivitamin,en-qwlo-vllgdlgj tablet 1 tab PO QDAY 02/16/17 furosemide 40 mg tablet 40 mg PO QDAY #90 tab 02/17/17 isosorbide mononitrate ER 30 mg tablet,extended release 24 hr 30 mg PO QDAY #30 tab 03/05/17 Levothyroxine [Synthroid] 1.5 tab PO MOTH 03/20/17 Menthol/Lanolin/Calamine/Znox [Calmoseptine Ointment] 1 applic TOPICAL BID tube 03/22/17 Nystatin Powder [Mycostatin Powder] 1 applic TOPICAL BID bottle 03/22/17 Primary Care Physician: Pete Butler DO [Primary Care Provider] - Please follow up with your Primary Care Physician in: in 2-3 weeks
--- NOTE | 2017-03-22 19:09 | PN.SURG_ITS ---
Patient Problems: Active and Suspected Problems (Last Updated 02/23/17 @ 10:25 by Letty De Leon) Small bowel obstruction (Acute) Hypothyroid (Acute) Aortic insufficiency (Acute) Subjective: no complaints - hungry - Physical Exam General: Alert, Oriented x3 Lungs: Clear to auscultation, Normal air movement Cardiovascular: Regular rate, Regular Rhythm Abdomen: Bowel Sounds Present, Soft, Non Tender Vital Signs Temp Pulse Resp BP Pulse Ox 98.0 F 64 16 147/73 H 95 03/22/17 14:01 03/22/17 14:01 03/22/17 14:01 03/22/17 14:01 03/22/17 14:01 Oxygen Flow Rate 2 Oxygen Delivery Method Room Air Weight: 94.5 kg Body Mass Index (BMI) 39.3 Intake and Output for Last 24 Hours 03/20/17 03/21/17 03/22/17 23:59 23:59 23:59 Intake Total 1218 / 1218 2886 / 2886 1159 / 1159 Output Total 525 / 525 870 / 870 900 / 900 Balance 693 / 693 2015 259 / 259 Assessment/Plan Active and Suspected Problems (Last Updated 02/23/17 @ 10:25 by Letty De Leon) Small bowel obstruction (Acute) Hypothyroid (Acute) Aortic insufficiency (Acute) resolved partial small bowel obstruction, aortic insufficiency, consideration for TAVR KUB today demonstrates normal bowel gas pattern with air in the colon and no significant distended small bowel. Tolerating a diet. OK for discharge Patient has multiple previous abdominal procedures. She has what sounds like aortic insufficiency significant enough to consider aortic valve replacement. Appreciate Dr. Richards's consultation. Operative reports from Jennifer don, recent Ronen fundoplication and repair of paraesophageal hernia with organoaxial rotation and many inguinal hernia repairs ,
--- NOTE | 2017-03-22 22:04 | PCM.DC.SUM ---
Discharge Date and Diagnosis Date of Admission: 03/20/17 Date of Discharge: 03/22/17 - Primary Discharge Diagnosis #1 partial small bowel obstruction #2 acute kidney injury #3 aortic insufficiency #4 pulmonary hypertension #5 hypertension #6 coronary artery disease #7 valvular cardiomyopathy - Secondary Discharge Diagnosis Chronic Problems (Last Updated 02/23/17 @ 10:25 by Letty De Leon) Abnormal EKG (Chronic) Aortic stenosis (Chronic) Cardiomyopathy (Chronic) CAD (coronary artery disease) (Chronic) Dyspnea on exertion (Chronic) Obesity (Chronic) Hypertension (Chronic) Secondary pulmonary arterial hypertension (Chronic) Nonrheumatic aortic valve insufficiency (Chronic) Hospital Course and Treatment Operations: None Procedures: None Summary of Care Provided: The patient is a 81 year old F who was seen in the emergency room at [facility] complaining of upper quadrant pain bilaterally. Workup in the emergency room included labs and a CT of the abdomen and pelvis, it was felt that the patient had a small bowel obstruction, elevated white count was noted to be present, general surgery was consulted and an NG tube was placed. Hospitalist service was called to admit the patient, she was admitted to [place] [address] and given IV fluids and NG suction was continued. Patient was seen in consultation by general surgery who felt the patient most probably had a partial small bowel obstruction, they recommended continuing NG suction and requested cardiology see the patient for consultation case the patient needed to go to surgery. Patient improved over the next 48 hours, NG tube was removed and the patient was able to eat without difficulty. On 03/22/17, patient was seen and examined and felt to be stable condition for discharge home. Discharge Activity: Return to Normal Activity Weight Bearing Status: Full weight bearing Home Medications: Medications to take at Discharge allopurinol 300 mg tablet 300 mg PO QDAY 02/15/17 aspirin 81 mg tablet,delayed release 81 mg PO QDAY 02/15/17 atenolol 25 mg tablet 25 mg PO QDAY 02/15/17 hydralazine 25 mg tablet 1 tab PO TID tab 02/15/17 levothyroxine 75 mcg capsule 75 mcg PO SUTUWEFRSA cap 02/15/17 losartan 100 mg tablet 100 mg PO QDAY 02/15/17 multivitamin,fm-hhzg-fqelxdst tablet 1 tab PO QDAY 02/16/17 furosemide 40 mg tablet 40 mg PO QDAY #90 tab 02/17/17 isosorbide mononitrate ER 30 mg tablet,extended release 24 hr 30 mg PO QDAY #30 tab 03/05/17 Levothyroxine [Synthroid] 1.5 tab PO MOTH 03/20/17 Menthol/Lanolin/Calamine/Znox [Calmoseptine Ointment] 1 applic TOPICAL BID tube 03/22/17 Nystatin Powder [Mycostatin Powder] 1 applic TOPICAL BID bottle 03/22/17 Primary Care Physician: Pete Butler DO [Primary Care Provider] - Please follow up with your Primary Care Physician in: in 2-3 weeks Disposition: Home Minutes spent on discharge:: 32 Patient Condition:: Stable Meaningful Use Info Meaningful Use Diagnoses (Choose all that apply): None applicable Code Visit Inpatient E&M: 41487 Disch Hosp
--- NOTE | 2017-03-22 22:30 | DS.PCM_ITS ---
Discharge Date and Diagnosis Date of Admission: 03/20/17 Date of Discharge: 03/22/17 - Primary Discharge Diagnosis #1 partial small bowel obstruction #2 acute kidney injury #3 aortic insufficiency #4 pulmonary hypertension #5 hypertension #6 coronary artery disease #7 valvular cardiomyopathy - Secondary Discharge Diagnosis Chronic Problems (Last Updated 02/23/17 @ 10:25 by Letty De Leon) Abnormal EKG (Chronic) Aortic stenosis (Chronic) Cardiomyopathy (Chronic) CAD (coronary artery disease) (Chronic) Dyspnea on exertion (Chronic) Obesity (Chronic) Hypertension (Chronic) Secondary pulmonary arterial hypertension (Chronic) Nonrheumatic aortic valve insufficiency (Chronic) Hospital Course and Treatment Operations: None Procedures: None Summary of Care Provided: The patient is a 81 year old F who was seen in the emergency room at [facility] complaining of upper quadrant pain bilaterally. Workup in the emergency room included labs and a CT of the abdomen and pelvis, it was felt that the patient had a small bowel obstruction, elevated white count was noted to be present, general surgery was consulted and an NG tube was placed. Hospitalist service was called to admit the patient, she was admitted to [place] [address] and given IV fluids and NG suction was continued. Patient was seen in consultation by general surgery who felt the patient most probably had a partial small bowel obstruction, they recommended continuing NG suction and requested cardiology see the patient for consultation case the patient needed to go to surgery. Patient improved over the next 48 hours, NG tube was removed and the patient was able to eat without difficulty. On 03/22/17, patient was seen and examined and felt to be stable condition for discharge home. Discharge Activity: Return to Normal Activity Weight Bearing Status: Full weight bearing Home Medications: Medications to take at Discharge allopurinol 300 mg tablet 300 mg PO QDAY 02/15/17 aspirin 81 mg tablet,delayed release 81 mg PO QDAY 02/15/17 atenolol 25 mg tablet 25 mg PO QDAY 02/15/17 hydralazine 25 mg tablet 1 tab PO TID tab 02/15/17 levothyroxine 75 mcg capsule 75 mcg PO SUTUWEFRSA cap 02/15/17 losartan 100 mg tablet 100 mg PO QDAY 02/15/17 multivitamin,xn-xyve-pmbyqees tablet 1 tab PO QDAY 02/16/17 furosemide 40 mg tablet 40 mg PO QDAY #90 tab 02/17/17 isosorbide mononitrate ER 30 mg tablet,extended release 24 hr 30 mg PO QDAY #30 tab 03/05/17 Levothyroxine [Synthroid] 1.5 tab PO MOTH 03/20/17 Menthol/Lanolin/Calamine/Znox [Calmoseptine Ointment] 1 applic TOPICAL BID tube 03/22/17 Nystatin Powder [Mycostatin Powder] 1 applic TOPICAL BID bottle 03/22/17 Primary Care Physician: Pete Butler DO [Primary Care Provider] - Please follow up with your Primary Care Physician in: in 2-3 weeks Disposition: Home Minutes spent on discharge:: 32 Patient Condition:: Stable Meaningful Use Info Meaningful Use Diagnoses (Choose all that apply): None applicable Code Visit Inpatient E&M: 93191 Disch Hosp
== END 2017-03-22 20:30 | disposition home or self-care (01) | DRG 389 ==
LOC: ED 03-20 01:54 → MS3 03-20 03:35
PROVIDERS: Surgery; Emergency Provider Emergency Medicine; Family Provider Preventive Medicine Occupational Medicine; PCP Preventive Medicine Occupational Medicine; Visit Provider Internal Medicine
DX: K56.600 Partial intestinal obstruction, unspecified as to cause (principal); N17.9 Acute kidney failure, unspecified; I42.8 Other cardiomyopathies; I27.21 Secondary pulmonary arterial hypertension; I35.2 Nonrheumatic aortic (valve) stenosis with insufficiency; I10 Essential (primary) hypertension; I25.10 Atherosclerotic heart disease of native coronary artery without angina pectoris; E66.9 Obesity, unspecified; Z68.39 Body mass index [BMI] 39.0-39.9, adult; E03.9 Hypothyroidism, unspecified; Z79.899 Other long term (current) drug therapy
CPT/HCPCS: 36415; 74018; 74019; 74176; 80048; 80053; 83605; 83690; 84484; 85025; 85610; 86850; 86900; 93005; 97802; 99284; J7030; J7040; A4216; J2405

== ENCOUNTER → 2017-04-20 08:51 | Outpatient (CLI) | payer MEDICARE, OTHER, SELFPAY ==
[2017-04-20 11:10] LABS: AST(SGOT) 17 U/L (15-37); Alanine Aminotransfer ALT/SGPT 16 U/L (13-56); Albumin, Serum 3.5 g/dL (3.2-5.0); Alkaline Phosphatase 66 U/L (45-117); Bilirubin, Direct 0.09 mg/dL (0.00-0.30); Cholesterol 166 mg/dL (200); Globulin 3.7 g/dL (2.2-4.2); High Density Lipoprotein 47 mg/dL; Protein, Total 7.2 g/dL (6.4-8.2); Triglycerides 141 mg/dL; Very Low Density Lipoprotein 28 mg/dL (5-40)
--- NOTE | 2017-04-20 14:09 | PFT ---
INTRODUCTION: The patient is an 81-year-old female currently under the care of Dr. Clay that presents for pulmonary function testing secondary to a diagnosis of pulmonary edema. Respiratory therapy reports good patient effort. However, the patient was unable to perform DLCO maneuvers despite multiple attempts. The patient was notably short of breath and unable to maintain an adequate seal throughout testing. INTERPRETATION: Forced expiration spirometry demonstrates no evidence of a large airways obstructive ventilatory defect. There was a significant response to aerosolized bronchodilators noted, based on overall change in FVC. Spirogram are of poor quality and terminate prior to 6 seconds of exhalation time, likely underestimating FVC. The respiratory flow volume loop is uninterpretable. Body plethysmography was performed and reveals an elevated RV to 141% of predicted, which could be account retention representative of underlying air trapping. Diffusing capacity was unable to be obtained. IMPRESSION: These pulmonary function studies show no evidence of a large airways fixed obstructive ventilatory defect. However, there was a significant bronchodilator response noted along with a trend towards air trapping. The patient was unable to perform the maneuvers to obtain DLCO. These results should be viewed with caution, as patient effort likely impacted the results.
--- NOTE | 2017-04-20 14:15 | PFT_ITS ---
INTRODUCTION: The patient is an 81-year-old female currently under the care of Dr. Caly that presents for pulmonary function testing secondary to a diagnosis of pulmonary edema. Respiratory therapy reports good patient effort. However, the patient was unable to perform DLCO maneuvers despite multiple attempts. The patient was notably short of breath and unable to maintain an adequate seal throughout testing. INTERPRETATION: Forced expiration spirometry demonstrates no evidence of a large airways obstructive ventilatory defect. There was a significant response to aerosolized bronchodilators noted, based on overall change in FVC. Spirogram are of poor quality and terminate prior to 6 seconds of exhalation time, likely underestimating FVC. The respiratory flow volume loop is uninterpretable. Body plethysmography was performed and reveals an elevated RV to 141% of predicted, which could be customer account representative of underlying air trapping. Diffusing capacity was unable to be obtained. IMPRESSION: These pulmonary function studies show no evidence of a large airways fixed obstructive ventilatory defect. However, there was a significant bronchodilator response noted along with a trend towards air trapping. The patient was unable to perform the maneuvers to obtain DLCO. These results should be viewed with caution, as patient effort likely impacted the results.
== END ==
PROVIDERS: Family Provider Preventive Medicine Occupational Medicine; PCP Preventive Medicine Occupational Medicine; Visit Provider Internal Medicine Cardiovascular Disease
DX: J81.1 Chronic pulmonary edema (principal); I27.21 Secondary pulmonary arterial hypertension; I35.1 Nonrheumatic aortic (valve) insufficiency; I24.8 Other forms of acute ischemic heart disease; I10 Essential (primary) hypertension; E66.9 Obesity, unspecified
CPT/HCPCS: 36415; 80061; 80076; 94060; 94726; 94729

== ENCOUNTER 2017-08-06 10:10 | Emergency (ER) | payer MEDICARE, OTHER, SELFPAY ==
[2017-08-06 10:11] VITALS: BP 163/86; PULSE 52; RESP 24; TEMP 36.6; O2SAT 99; BMI 39.4
[2017-08-06 10:29] VITALS: O2SAT 98
--- NOTE | 2017-08-06 10:29 | EKG12_ITS ---
Test Reason : SOB Blood Pressure : / mmHG Vent. Rate : 046 BPM Atrial Rate : 046 BPM P-R Int : 158 ms QRS Dur : 116 ms QT Int : 456 ms P-R-T Axes : 052 -09 146 degrees QTc Int : 399 ms Sinus bradycardia with sinus arrhythmia Septal infarct , age undetermined ST & T wave abnormality, consider lateral ischemia Abnormal ECG Confirmed by LENORA SERVIN, JONATHAN ([id number]), greeting card editor PATRICK MACHADO ([id number]) on 08/12/2017 3:11:06 PM Referred By: JOSE Confirmed By:JONATHAN COOLEY MD
--- NOTE | 2017-08-06 10:34 | RAD_ITS ---
STUDY: X-RAY CHEST REASON FOR EXAM: Female, 81 years old. Bradycardia. Shortness of breath. Recent recent aortic valve replacement. TECHNIQUE: Single AP portable view of the chest. COMPARISON: Comparison is made with prior study dated February 16, 2017. FINDINGS: EKG electrodes are seen. Bibasilar infiltrates and/or atelectasis worse on the right side. Blunting of both costophrenic angles. Sternal cerclage wires are present from a prior sternotomy. Aortic valve replacement. Normal mediastinum and sebastián. Normal visualized pulmonary arteries. There is atherosclerotic tortuosity of the aortic arch and descending thoracic aorta. Normal visualized thoracic spine. Normal visualized ribs, clavicles, and shoulders. There is no demonstrated abnormality of the visualized soft tissue structures of the upper abdomen. RAD/Chest 1 View (Portable) IMPRESSION: Bibasilar atelectasis and/or infiltrates worse on the right side with the blunting of the right costophrenic angle. Electronically Signed: Anthony Talley MD at 11:16 EDT Tel [phone], Service support ,
--- NOTE | 2017-08-06 10:49 | ED.VISSUMM ---
- ER Visit Summary Date of Service: 08/06/17 Chief Complaint: SOB History of Present Illness: The patient is a 81 F who is essentially asymptomatic. She was found to be bradycardic in the 40s at home by her home health aide. She has chronic shortness of breath and she did mention this to her home health aide and she was sent to the emergency department. She had an aortic valve replacement and has heart failure. She is on Lasix, she has no cough, no fever or chills. Her weight fluctuates based on the edema, she is unable to tell me if her edema is worse than 3-4 days ago. Physical Examination: Patient does not appear in acute distress. Moist mucous membranes, no obvious facial deformity No C-spine tenderness supple neck. Regular rhythm, bradycardic, without any obvious murmurs Course lungs bilaterally speaking in full sentences without any obvious respiratory distress Abdomen soft and nontender no guarding or rebound Moves all extremities without any difficulty or pain. Bilateral pedal edema pitting no signs of cellulitis Skin does not show any obvious rashes or lesions, no trauma. Alert oriented ?3 with no gross focal deficit Emergency Department Course and Treatment: Patient is essentially asymptomatic. She is on 3 different AV lauren blocking agents. I discussed the patient with Dr. Luna, we will discharge the digoxin. Patient is walking around and doing quite well and she is asymptomatic with a normal blood pressure. If she worsens she needs to return. She understands this. Impression: Asymptomatic bradycardia secondary to medication This note was generated with [employer] dictation software. It may contain incorrect words, spelling, and punctuation that were not noted in review of the chart prior to signing ED Disposition - Plan for ED Patient: Disposition: Home or Assisted Living Chief Complaint: Shortness of Breath Instructions: ED Bradycardia Referrals: Pete Clay MD [STAFF PHYSICIAN] - 3-5 Days
[2017-08-06 10:55] LABS: Absolute Lymphocyte Count 1.74 X10^3/ul (0.83-4.51); Absolute Neutrophil Count 4.2 X10^3/uL (2.0-7.7); Basophil# 0.04 X10^3/uL; Basophil% 0.6 % (0-1); Eosinophils% 2.9 % (0-5); Hematocrit 38.4 % (37-47); Hemoglobin 11.7 g/dl (12.0-15.0); Lymphocyte # 1.74 X10^3/ul (4.0); Lymphocyte % 25.3 % (19-41); Mean Corp Hgb Conc 30.5 g/gl (32-36); Mean Corpuscular Hgb 29.3 pg (27.0-32.0); Mean Corpuscular Volume 96.2 fL (81-99); Mean Platelet Vol. 11.3 fl (6.2-12.0); Monocyte# 0.72 X10^3/uL; Monocyte% 10.5 % (0-10); Neutrophil # 4.16 X10^3/uL (2.7-7.7); Neutrophil % 60.4 % (47-70); Platelet Count 189 K/mm3 (150-450); RBC Distribution Width CV 15.8 % (11.6-14.6); RBC Distribution Width SD 55.1 fl (35.1-43.9); Red Blood Count 3.99 M/mm3 (4.2-5.4); White Blood Count 6.9 K/mm3 (4.4-11.0)
[2017-08-06 10:56] LABS: POSITIVE COUNT NO; POSITIVE DIFFERENTIAL NO; POSITIVE MORPHOLOGY NO
[2017-08-06 11:12] LABS: ALB/GLOB Ratio 0.9 RATIO (0.9-2.4); AST(SGOT) 26 U/L (15-37); Alanine Aminotransfer ALT/SGPT 26 U/L (13-56); Albumin, Serum 3.4 g/dL (3.2-5.0); Alkaline Phosphatase 73 U/L (45-117); Anion Gap 8 (5-15); BUN 19 mg/dL (7-18); Calcium,Total 8.4 mg/dL (8.5-10.1); Chloride 104 mmol/L (98-107); Creatinine, Serum 1.27 mg/dL (0.55-1.02); EST Glomerular Filtration Rate 43 mL/min (>60); Est Glom Filt Rate - Afr Amer 52 mL/min (>60); Estimated Creatinine Clearance 26.22 ml/min; Globulin 3.6 g/dL (2.2-4.2); Glucose 117 mg/dL (74-106); Potassium 3.8 mmol/L (3.5-5.1); Sodium Level 143 mmol/L (136-145)
[2017-08-06 11:12] LABS: Bacteria 0 SEEN /hpf (None Seen); Mucous, Urine 0 SEEN /hpf (<or=2+); Red Blood Cells-Urine 0 SEEN /hpf (0-5); Squamous Epithelial Cells - UA 0 SEEN /hpf (5-10)
[2017-08-06 11:13] LABS: Color, Urine Yellow (Yellow); Glucose, Dipstick Normal (Normal); Ketone-Dipstick Negative (Negative); Leukocyte Esterase-Dipstick 25 /ul (Negative); Nitrite-Dipstick Negative (Negative); Occult Blood-Urine Negative /ul (Negative); Protein-Dipstick Negative (Negative); Specific Gravity, Urine 1.005 (1.002-1.030); Urine Bilirubin Dipstick Negative (Negative); Urine Clarity Clear (Clear); Urine Urobilinogen Normal (Normal)
[2017-08-06 11:21] LABS: BNP,B-Type NATRIURETIC PEPTIDE 212.3 pg/mL (0-100)
[2017-08-06 11:26] LABS: White Blood Cells 0-5 SEEN /hpf (0-5)
[2017-08-06 12:31] VITALS: BP 156/54; PULSE 43; RESP 25; O2SAT 98
== END 2017-08-06 12:36 | disposition home or self-care (01) ==
PROVIDERS: Emergency Provider Emergency Medicine; Family Provider Preventive Medicine Occupational Medicine; PCP Preventive Medicine Occupational Medicine
DX: R00.1 Bradycardia, unspecified (principal); T46.0X5A Adverse effect of cardiac-stimulant glycosides and drugs of similar action, initial encounter; I10 Essential (primary) hypertension; E11.9 Type 2 diabetes mellitus without complications; Z79.82 Long term (current) use of aspirin; Z79.899 Other long term (current) drug therapy
CPT/HCPCS: 71045; 80053; 81001; 83880; 84484; 85025; 93005; 99284; A4216

== ENCOUNTER → 2017-09-16 12:01 | Outpatient (CLI) | payer MEDICARE, OTHER, SELFPAY ==
[2017-09-16 13:17] LABS: Anion Gap 2 (5-15); BUN 22 mg/dL (7-18); Calcium,Total 8.8 mg/dL (8.5-10.1); Chloride 103 mmol/L (98-107); Creatinine, Serum 1.16 mg/dL (0.55-1.02); EST Glomerular Filtration Rate 48 mL/min (>60); Est Glom Filt Rate - Afr Amer 58 mL/min (>60); Glucose 108 mg/dL (74-106); Potassium 4.4 mmol/L (3.5-5.1); Sodium Level 139 mmol/L (136-145)
[2017-09-16 13:27] LABS: BNP,B-Type NATRIURETIC PEPTIDE 92.8 pg/mL (0-100)
== END ==
PROVIDERS: Family Provider Preventive Medicine Occupational Medicine; PCP Preventive Medicine Occupational Medicine; Visit Provider Physician Assistant Medical
DX: I42.9 Cardiomyopathy, unspecified (principal); I35.1 Nonrheumatic aortic (valve) insufficiency; I10 Essential (primary) hypertension; R06.09 Other forms of dyspnea
CPT/HCPCS: 36415; 80048; 83880

== ENCOUNTER 2018-02-07 04:24 | Inpatient (IN) | payer MEDICARE, OTHER, SELFPAY ==
[2018-01-25 13:55] VITALS: BMI 38.5
[2018-02-07] VITALS (21 sets, daily range): BP systolic 104–152; BP diastolic 59–80; PULSE 63–77; RESP 16–28; TEMP 36.9–38.3; O2SAT 83–99; BMI 38.9; BMI 39.9; BMI 40.0
--- NOTE | 2018-02-07 05:03 | RAD_ITS ---
STUDY: X-RAY CHEST REASON FOR EXAM: Female, 82 years old. Shortness of breath. TECHNIQUE: Single AP portable view of the chest. COMPARISON: August 06, 2017. FINDINGS: Cardiac monitoring leads are present. The patient has had a sternotomy. The lungs are underexpanded with obscuration of the lung bases. There are patchy bilateral basilar airspace consolidations and atelectasis. Some of this may represent pulmonary fibrosis as was present on the previous radiograph as well. There appear to be pleural effusions, right larger than left. There is mild cardiac enlargement. Patient has a cardiac valvular prosthesis. Normal mediastinum and sebastián. There is prominence of the pulmonary hilar arteries without peripheral pulmonary vascular congestion. There is atherosclerotic calcification of the aortic arch with tortuosity. There is demineralization of the osseous structures. Normal visualized ribs, clavicles, and shoulders. There is no demonstrated abnormality of the visualized soft tissue structures of the upper abdomen. RAD/Chest 1 View (Portable) IMPRESSION: 1. Bilateral basilar airspace consolidations and/or atelectasis. 2. There may be bilateral basilar pulmonary fibrosis as well. Electronically Signed: Jodi Dailey MD at 5:49 EST , Service support ,
--- NOTE | 2018-02-07 05:03 | EKG12_ITS ---
Test Reason : SOB Blood Pressure : / mmHG Vent. Rate : 077 BPM Atrial Rate : 077 BPM P-R Int : 140 ms QRS Dur : 112 ms QT Int : 380 ms P-R-T Axes : 057 083 130 degrees QTc Int : 430 ms Sinus rhythm with occasional Premature ventricular complexes Possible Left atrial enlargement Septal infarct , age undetermined, cannot be excluded Abnormal ECG Confirmed by ZOHRA SERVIN, NOREEN ([id number]), photo editor PATRICK MACHADO ([id number]) on 02/09/2018 2:41:59 PM Referred By: DARRICK Confirmed By:NOREEN العلي MD
--- NOTE | 2018-02-07 05:08 | ED.DCSUM_ITS ---
History of Present Illness Chief Complaint: Shortness of Breath Informant: Patient, Family Onset: Weeks - 1 Context: Gradual Onset Timing: Continuous Quality: short of breath Location: chest Current Severity: Moderate Maximum Severity: Severe Worsened by: exertion, initially lying supine Relieved by: nebulizer treatments partially Associated Symptoms: gen weakness, congestion, prod cough. no chest pains or fevers. Narrative: Patient has been ill for a week with upper respiratory infection symptoms, getting gradually more dyspneic, which was much worse tonight. Chronic leg edema that is no worse. Has been doing regular six-hour nebulizer treatments that are helping some, she had a couple of treatments by EMS which helped some more but she is still dyspneic. Noticed that her heart rate was faster than usual tonight, which concerned her. She states she usually is around 60, but this morning she was around 100. Hypoxic upon arrival. - Past Medical History (1) COPD (chronic obstructive pulmonary disease) Status: Chronic Comment: per pt (2) Hypothyroid Status: Chronic (3) Aortic stenosis Status: Chronic (4) CAD (coronary artery disease) Status: Chronic (5) Cardiomyopathy Status: Chronic (6) Hypertension Status: Chronic (7) Secondary pulmonary arterial hypertension Status: Chronic Past Medical History - Allergies and Home Meds Allergies/Adverse Reactions: Allergies No Known Allergies Allergy (Verified 01/25/18 14:03) Primary Care Physician: Pete Butler DO [Primary Care Provider] - Surgical History: herniorrhaphy, - - Hiatal hernia repair, multiple inguinal hernia repairs and what sounds like a small bowel resection with a previous right inguinal hernia repair Smoking Status: Never smoker - Family History Paternal Family History: Family History (Last Reviewed 01/25/18 @ 14:04 by Yvette Carrasco) Mother Hypertension Father Hypertension Family History: Reports: Heart Disease Review of Systems General: Reports: Malaise. Denies: Chills, Fever, Sweats Eyes: Denies: Visual changes - bilaterally, Diplopia ENT: Reports: Rhinorrhea. Denies: Bilateral ear pain, Sore throat Cardiovascular: Denies: Chest pain, Palpitations Respiratory: Reports: Dyspnea, Cough, Sputum, Dyspnea on exertion, Orthopnea Gastrointestinal: Denies: Abdominal pain, Nausea, Vomiting, Diarrhea, Melena, Hematochezia Genitourinary: Denies: Dysuria, Hematuria, Frequency Musculoskeletal: Reports: Swelling - BLE, chronic, unchanged. Denies: Back pain, Extremity Pain Skin: Denies: Rash, Abscess Neurological: Denies: Headache, Weakness, Numbness Psych: Denies: Depression, Anxiety Endocrine: Denies: Polyuria, Polydipsia Hematologic: Denies: Easy bruising, Easy bleeding Allergy: Denies: Swelling of the mouth, Swelling of the tongue Physical Exam Vital Signs/Narrative: Vital Signs Temp Pulse Resp BP Pulse Ox 02/07/18 04:32 99.4 F H 75 28 H 134/75 H 99 02/07/18 04:25 99.4 F H 77 28 H 152/75 H 83 Inital Vital Signs reviewed: Yes General: Well nourished, Well developed, - - tachypneic, no resp distress Head: Normocephalic, Atraumatic Eyes: Perrl, EOMI ENT: Moist mucous membranes, No rhinorrhea Neck: Supple, Nontender, No lymphadenopathy, No JVD Cardiovascular: Regular rate, Regular rhythm, Murmur - systolic 2/6, LLSB Respiratory: No distress, Chest nontender, Diminished - throughout, symmetrically. Negative for: Retractions Abdomen: Soft, Nontender, Nondistended, Normal bowel sounds Back: Nontender, Normal Inspection Extremities: Nontender, Edema - 1+ BLE symmetric w/ signs of stasis Skin: Normal color, No rash Neurological: Alert, Oriented x3, Cranial nerves II-XII grossly intact, Normal Strength, Normal Sensation Psychological: Normal affect Diagnostic/Tx/Re-eval Impressions Chest X-Ray 02/07/18 05:03 IMPRESSION: 1. Bilateral basilar airspace consolidations and/or atelectasis. 2. There may be bilateral basilar pulmonary fibrosis as well. Electronically Signed: Jodi Dailey MD at 5:49 EST , Service support , 02/07/18 05:03 Chest 1 View (Portable) [RAD] Stat Laboratory Results 02/07/18 02/07/18 04:40 04:40 WBC 8.4 RBC 4.12 L Hgb 12.5 Hct 39.3 MCV 95.4 MCH 30.3 MCHC 31.8 L RDW 15.3 H RDW Differential 51.0 H Plt Count 169 MPV 12.4 H Immature Gran % (Auto) 0.400 Neut % (Auto) 78.8 H Lymph % (Auto) 12.5 L [place] % (Auto) 6.9 Eos % (Auto) 1.0 Baso % (Auto) 0.4 Absolute Neuts (auto) 6.6 Absolute Lymphs (auto) 1.05 Total Counted Not Reportable Sodium 138 Potassium 4.6 Chloride 102 Carbon Dioxide 28.0 Anion Gap 8 BUN 15 Creatinine 1.14 H Estim Creat Clear Calc 28.71 Est GFR (MDRD) Af Amer 59 L Est GFR (MDRD) Non-Af 49 L BUN/Creatinine Ratio 13.2 Glucose 158 H Calcium 8.6 Troponin I 0.043 - Rhythm Strip Rhythm Strip: Sinus Rhythm Rate: 79 Ectopy: PVC(s) - EKG Initial EKG Interpretation: Sinus Rhythm, No Acute Injury Pattern, Non-Specific ST Changes - Laterally, - - PVC - Medical Decision Making After nebulizer treatment patient is breathing much better, she is on a 6 L nasal cannula satting at 95%. Her chest x-ray and exam are both consistent with airspace disease in both bases. I do not think this is cardiogenic. She was admitted in [place] for pneumonia around 2 months ago, so antibiotics to cover healthcare associated pneumonia are empirically started. She developed a temperature/fever, given her hypoxia now qualifying her for sepsis. Lactate is added and WNL. Blood cultures are sent. She is clinically and hemodynamically stable for PCU admission. ED Disposition - Plan for ED Patient: Disposition: Acute Care [facility] Chief Complaint: Shortness of Breath Diagnosis: Sepsis, COPD exacerbation, HCAP (healthcare-associated pneumonia), Hypoxemia Referrals: Pete Butler DO [Primary Care Provider] -
[2018-02-07] MEDS: Ipratropium/Albuterol Sulfate 3 ML AMPUL.NEB INHALATION ×5 (05:12→23:10)
[2018-02-07 05:15] LABS: Absolute Lymphocyte Count 1.05 X10^3/ul (0.83-4.51); Absolute Neutrophil Count 6.6 X10^3/uL (2.0-7.7); Basophil# 0.03 X10^3/uL; Basophil% 0.4 % (0-1); Eosinophil# 0.08 X10^3/uL; Hematocrit 39.3 % (37-47); Hemoglobin 12.5 g/dl (12.0-15.0); Lymphocyte # 1.05 X10^3/ul (4.0); Lymphocyte % 12.5 % (19-41); Mean Corp Hgb Conc 31.8 g/gl (32-36); Mean Corpuscular Hgb 30.3 pg (27.0-32.0); Mean Corpuscular Volume 95.4 fL (81-99); Mean Platelet Vol. 12.4 fl (6.2-12.0); Monocyte# 0.58 X10^3/uL; Monocyte% 6.9 % (0-10); Neutrophil % 78.8 % (47-70); Platelet Count 169 K/mm3 (150-450); RBC Distribution Width CV 15.3 % (11.6-14.6); Red Blood Count 4.12 M/mm3 (4.2-5.4); White Blood Count 8.4 K/mm3 (4.4-11.0)
[2018-02-07] MEDS: MethylPREDNISolone 125 MG/2 ML Vial IV (05:25)
[2018-02-07 05:31] LABS: Anion Gap 8 (5-15); BUN 15 mg/dL (7-18); BUN/Creat Ratio 13.2 RATIO (10-20); Calcium,Total 8.6 mg/dL (8.5-10.1); Chloride 102 mmol/L (98-107); Creatinine, Serum 1.14 mg/dL (0.55-1.02); EST Glomerular Filtration Rate 49 mL/min (>60); Est Glom Filt Rate - Afr Amer 59 mL/min (>60); Estimated Creatinine Clearance 28.71 ml/min; Glucose 158 mg/dL (74-106); Potassium 4.6 mmol/L (3.5-5.1); Sodium Level 138 mmol/L (136-145)
[2018-02-07 05:35] LABS: POSITIVE COUNT NO; POSITIVE DIFFERENTIAL NO; POSITIVE MORPHOLOGY NO
[2018-02-07] MEDS: Ondansetron 4 MG/2 ML Vial IV (06:22)
[2018-02-07] MEDS: Acetaminophen 325 MG Tablet 650 MG PO (06:38)
--- NOTE | 2018-02-07 07:23 | PCM.HP.STD ---
Problem List (1) HAP (hospital-acquired pneumonia) Status: Acute (2) Acute respiratory failure with hypoxemia Status: Acute (3) Severe sepsis Status: Acute (4) Hypothyroid Status: Chronic (5) Abnormal EKG Status: Chronic (6) Aortic stenosis Status: Chronic Qualifiers: Cardiac valve disease etiology: etiology unspecified Qualified Code(s): I35.0 - Nonrheumatic aortic (valve) stenosis (7) Aortic insufficiency Status: Acute Qualifiers: Cardiac valve disease etiology: nonrheumatic Qualified Code(s): I35.1 - Nonrheumatic aortic (valve) insufficiency (8) Cardiomyopathy Status: Chronic Qualifiers: Cardiomyopathy type: dilated Qualified Code(s): I42.0 - Dilated cardiomyopathy (9) CAD (coronary artery disease) Status: Chronic Qualifiers: Coronary Disease-Associated Artery/Lesion type: [place] artery [place] vs. transplanted heart: [place] heart Associated angina: without angina Qualified Code(s): I25.10 - Atherosclerotic heart disease of [place] coronary artery without angina pectoris (10) COPD (chronic obstructive pulmonary disease) Status: Chronic Comment: per pt (11) Sepsis Status: Resolved (12) COPD exacerbation Status: Acute (13) Hypoxemia Status: Acute (14) Dyspnea on exertion Status: Chronic (15) Obesity Status: Chronic (16) Hypertension Status: Chronic Qualifiers: Hypertension type: essential hypertension Qualified Code(s): I10 - Essential (primary) hypertension (17) Secondary pulmonary arterial hypertension Status: Chronic (18) History of aortic valve replacement Status: Acute Comment: bioprosthetic History of Present Illness Date of Admission: 02/07/18 Chief Complaint: SOB, cough and chills The patient is a 82 year old F with a past medical history of COPD, aortic stenosis, history of bioprosthetic aortic valve replacement, hypertension, coronary artery disease, cardiomyopathy with a 40-45% EF, morbid obesity, hypothyroidism, aortic regurgitation and moderate secondary pulmonary arterial hypertension who presented to the ED on 02/07/18 with c/o cough, progressive SOB over the past week and chills. Vital signs of presentation to the emergency room were temperature 99.4, heart rate 77, blood pressure 152/75, respiratory rate 28 and she was 83% saturated on a 4 L nasal cannula and 98% saturated on a nonrebreather. White blood cell count was normal at 8.4 with 79% neutrophils. Hemoglobin and platelets are within normal limits. Electrolytes are unremarkable and the BUN is 15 with a creatinine of 1.14. Fasting blood sugars elevated at 158. Troponin is 0.043. Chest x-ray shows BL basilar pneumonia, R>L. It is a poor inspiratory effort and can not r/o BL effusions with increased vascular congestion. Past Medical History Past Medical History (Chronic Problems): Chronic Problems (Last Reviewed 02/07/18 @ 21:51 by Larry Wells DO) Hypothyroid (Chronic) Abnormal EKG (Chronic) Aortic stenosis (Chronic) Cardiomyopathy (Chronic) CAD (coronary artery disease) (Chronic) COPD (chronic obstructive pulmonary disease) (Chronic) per pt Dyspnea on exertion (Chronic) Obesity (Chronic) Hypertension (Chronic) Secondary pulmonary arterial hypertension (Chronic) Medical History: Medical History (Last Reviewed 02/07/18 @ 21:51 by Larry Wells DO) Dyspnea on exertion (Chronic) R06.09 Obesity (Chronic) E66.9 Hypertension (Chronic) I10 Secondary pulmonary arterial hypertension (Chronic) I27.21 Anemia D64.9 Arthritis M19.90 Body mass index (BMI) 35 or more Gout M10.9 Hiatal hernia with gastroesophageal reflux K21.9, K44.9 History of hysterectomy Z98.890, Z90.710 Hypothyroidism E03.9 Nonrheumatic mitral (valve) insufficiency I34.0 Psoriasis L40.9 Skin cancer C44.90 Vertigo R42 Demand ischemia (Resolved) I24.8 Pulmonary edema (Resolved) J81.1 Allergies No Known Allergies Allergy (Verified 01/25/18 14:03) Home Medications: Ambulatory Orders Medication Instructions Recorded allopurinol 300 mg tablet 300 mg PO QDAY 02/15/17 aspirin 81 mg tablet,delayed 81 mg PO QDAY 02/15/17 release metoprolol tartrate 25 mg tablet 12.5 mg PO BID #30 tab 08/10/17 hydralazine 25 mg tablet 25 mg PO TID 30 Days #90 tab 12/15/17 omeprazole 40 mg capsule,delayed 40 mg PO DAILY 30 Days #30 cap 12/15/17 release amlodipine 5 mg tablet 5 mg PO DAILY 01/25/18 furosemide 40 mg tablet 40 mg PO DAILY 01/25/18 levothyroxine 100 mcg tablet 100 mcg PO DAILY 01/25/18 spironolactone 25 mg tablet 25 mg PO DAILY 01/25/18 Albuterol Aerosols [Ventolin 2.5 mg INHALATION Q6H PRN PRN 02/07/18 Aerosols] Ondansetron HCl [Zofran] 4 mg PO Q6H PRN PRN 02/07/18 Surgical History: Surgical History (Last Reviewed 02/07/18 @ 21:51 by Larry Wells DO) History of Ronen fundoplication Onset Date: ~10/21/16 Z98.890 History of bladder suspension procedure Z92.89 History of incisional hernia repair Z98.890, Z87.19 1980,2005, 2007, 2010 History of left heart catheterization Onset Date: ~2011 Z98.890 Had cath in [place] History of repair of hiatal hernia Onset Date: ~10/21/16 Z98.890, Z87.19 Surgical History: herniorrhaphy, - - Hiatal hernia repair, multiple inguinal hernia repairs and what sounds like a small bowel resection with a previous right inguinal hernia repair Psychiatric History: No pertinent psych hx 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 Denies: Fever, Weight Change HEENT: Denies: Difficulty Swallowing, Head Aches, Sinus Congestion, Sinus Drainage, Sore Throat Cardiovascular: Denies: Chest Pain, Palpitations Respiratory: Reports: Cough, Shortness of Breath, Shortness of breath at rest, Shortness of breath upon exertion. Denies: Sputum production Gastrointestinal: Denies: Abdominal Pain, Diarrhea, Nausea, Vomiting Genitourinary: Denies: Dysuria Musculoskeletal: Denies: Joint Pain, Joint Tenderness Skin: Denies: Rash, Wounds Neurological: Denies: Numbness, Tingling, Focal weakness Psychiatric: Denies: Anxiety, Depression, Homicidal Ideations, Suicidal Ideations Endocrine: Denies: Change in Body Habitus Hematologic/ Lymphatic: Denies: Easy Bruising, Easy Bleeding VTE Information - Inpt Only VTE Present on Admission: No VTE Mechan Device Prophylaxis: SCD's, Knee High INGRID Hose VTE Pharm Prophylaxis ordered?: Yes Patient Problems: Active and Suspected Problems (Last Reviewed 02/07/18 @ 21:51 by Larry Wells DO) COPD exacerbation (Acute) Hypoxemia (Acute) HAP (hospital-acquired pneumonia) (Acute) Acute respiratory failure with hypoxemia (Acute) Severe sepsis (Acute) History of aortic valve replacement (Acute) bioprosthetic Sepsis (Acute) HCAP (healthcare-associated pneumonia) (Acute) - Physical Exam General: Alert, Cooperative, - - Looks ill HEENT: Atraumatic, PERRLA, EOMI, Normocephalic Oral: Dry Mucosa Neck: Supple, No Nuchal Rigidity, Trachea Midline Lungs: Diminished - lelie in the bases, no wheezing and no rales. no conversational dyspnea Cardiovascular: Regular rate, Regular Rhythm, Normal S1, Normal S2, No Gallop Abdomen: Bowel Sounds Present, Soft, Non Tender, Non-Distended, Obese Extremities: Edema Skin: No rashes, No breakdown Neurological: Cranial nerves II-XII grossly intact, Neuro grossly intact Psych/Mental Status: Normal Affect, Appropriate Vital Signs Temp Pulse Resp BP Pulse Ox 99.1 F 67 28 H 111/64 93 02/07/18 07:19 02/07/18 07:19 02/07/18 07:19 02/07/18 07:19 02/07/18 07:19 Oxygen Flow Rate (L/min) 6 Oxygen Delivery Method Nasal Cannula Weight: 206 lb Body Mass Index (BMI) 38.9 Laboratory Tests Past 24 Hrs 02/07/18 02/07/18 02/07/18 04:40 04:40 04:40 WBC 8.4 RBC 4.12 L Hgb 12.5 Hct 39.3 MCV 95.4 MCH 30.3 MCHC 31.8 L RDW 15.3 H RDW Differential 51.0 H Plt Count 169 MPV 12.4 H Immature Gran % (Auto) 0.400 Neut % (Auto) 78.8 H Lymph % (Auto) 12.5 L Person % (Auto) 6.9 Eos % (Auto) 1.0 Baso % (Auto) 0.4 Absolute Neuts (auto) 6.6 Absolute Lymphs (auto) 1.05 Total Counted Not Reportable Sodium 138 Potassium 4.6 Chloride 102 Carbon Dioxide 28.0 Anion Gap 8 BUN 15 Creatinine 1.14 H Estim Creat Clear Calc 28.71 Est GFR (MDRD) Af Amer 59 L Est GFR (MDRD) Non-Af 49 L BUN/Creatinine Ratio 13.2 Glucose 158 H Lactic Acid 1.0 Calcium 8.6 Troponin I 0.043 Assessment/Plan All Active Problems (Last Reviewed 02/07/18 @ 21:51 by Larry Wells, ) Aortic insufficiency (Acute) COPD exacerbation (Acute) Hypoxemia (Acute) HAP (hospital-acquired pneumonia) (Acute) Acute respiratory failure with hypoxemia (Acute) Severe sepsis (Acute) History of aortic valve replacement (Acute) Sepsis (Acute) HCAP (healthcare-associated pneumonia) (Acute) Sepsis (Resolved) Demand ischemia (Resolved) Pulmonary edema (Resolved) Small bowel obstruction (Resolved) Impressions 1. Suspected hospital-acquired pneumonia-cannot rule out congestive heart failure at this point or even a viral URI. Her cough is dry and she has a normal white blood cell count. 2. Acute respiratory failure with hypoxemia 3. Severe sepsis 4. Hypothyroidism 5. Aortic stenosis 6. Aortic insufficiency 7. Cardiomyopathy with a 40-45% EF 8. Coronary artery disease 9. Chronic COPD with acute exacerbation 10. Hypertension 11. Pulmonary hypertension 12. History of bioprosthetic aortic valve replacement 13. Morbid obesity Respiratory panel Urine for Legionella and streptococcal antigens Sputum culture Supplemental oxygen to maintain pulse ox at or greater than 90% Heparin subcu for DVT prophylaxis DuoNeb aerosols every 4 hours and every 2 hours albuterol aerosols as needed dyspnea or wheezing Guaifenesin Reevaluate in the morning. If the wheezing does not improve significantly with aerosolized bronchodilators will start steroids. Code Visit Inpatient E&M: 32740 Init Hosp L3
--- NOTE | 2018-02-07 07:27 | HP.PCM_ITS ---
Problem List (1) HAP (hospital-acquired pneumonia) Status: Acute (2) Acute respiratory failure with hypoxemia Status: Acute (3) Severe sepsis Status: Acute (4) Hypothyroid Status: Chronic (5) Abnormal EKG Status: Chronic (6) Aortic stenosis Status: Chronic Qualifiers: Cardiac valve disease etiology: etiology unspecified Qualified Code(s): I35.0 - Nonrheumatic aortic (valve) stenosis (7) Aortic insufficiency Status: Acute Qualifiers: Cardiac valve disease etiology: nonrheumatic Qualified Code(s): I35.1 - Nonrheumatic aortic (valve) insufficiency (8) Cardiomyopathy Status: Chronic Qualifiers: Cardiomyopathy type: dilated Qualified Code(s): I42.0 - Dilated c ardiomyopathy (9) CAD (coronary artery disease) Status: Chronic Qualifiers: Coronary Disease-Associated Artery/Lesion type: [place] artery [place] vs. transplanted heart: galena heart Associated angina: without angina Qualified Code(s): I25.10 - Atherosclerotic heart disease of galena coronary artery without angina pectoris (10) COPD (chronic obstructive pulmonary disease) Status: Chronic Comment: per pt (11) Sepsis Status: Resolved (12) COPD exacerbation Status: Acute (13) Hypoxemia Status: Acute (14) Dyspnea on exertion Status: Chronic (15) Obesity Status: Chronic (16) Hypertension Status: Chronic Qualifiers: Hypertension type: essential hypertension Qualified Code(s): I10 - Essential (primary) hypertension (17) Secondary pulmonary arterial hypertension Status: Chronic (18) History of aortic valve replacement Status: Acute Comment: bioprosthetic History of Present Illness Date of Admission: 02/07/18 Chief Complaint: SOB, cough and chills The patient is a 82 year old F with a past medical history of COPD, aortic stenosis, history of bioprosthetic aortic valve replacement, hypertension, coronary artery disease, cardiomyopathy with a 40-45% EF, morbid obesity, hypothyroidism, aortic regurgitation and moderate secondary pulmonary arterial hypertension who presented to the ED on 02/07/18 with c/o cough, progressive SOB over the past week and chills. Vital signs of presentation to the emergency room were temperature 99.4, heart rate 77, blood pressure 152/75, respiratory rate 28 and she was 83% saturated on a 4 L nasal cannula and 98% saturated on a nonrebreather. White blood cell count was normal at 8.4 with 79% neutrophils. Hemoglobin and platelets are within normal limits. Electrolytes are unremarkable and the BUN is 15 with a creatinine of 1.14. Fasting blood sugars elevated at 158. Troponin is 0.043. Chest x-ray shows BL basilar pneumonia, R>L. It is a poor inspiratory effort and can not r/o BL effusions with increased vascular congestion. Past Medical History Past Medical History (Chronic Problems): Chronic Problems (Last Reviewed 02/07/18 @ 21:51 by Larry Wells DO) Hypothyroid (Chronic) Abnormal EKG (Chronic) Aortic stenosis (Chronic) Cardiomyopathy (Chronic) CAD (coronary artery disease) (Chronic) COPD (chronic obstructive pulmonary disease) (Chronic) per pt Dyspnea on exertion (Chronic) Obesity (Chronic) Hypertension (Chronic) Secondary pulmonary arterial hypertension (Chronic) Medical History: Medical History (Last Reviewed 02/07/18 @ 21:51 by Larry Wells DO) Dyspnea on exertion (Chronic) R06.09 Obesity (Chronic) E66.9 Hypertension (Chronic) I10 Secondary pulmonary arterial hypertension (Chronic) I27.21 Anemia D64.9 Arthritis M19.90 Body mass index (BMI) 35 or more Gout M10.9 Hiatal hernia with gastroesophageal reflux K21.9, K44.9 History of hysterectomy Z98.890, Z90.710 Hypothyroidism E03.9 Nonrheumatic mitral (valve) insufficiency I34.0 Psoriasis L40.9 Skin cancer C44.90 Vertigo R42 Demand ischemia (Resolved) I24.8 Pulmonary edema (Resolved) J81.1 Allergies No Known Allergies Allergy (Verified 01/25/18 14:03) Home Medications: Ambulatory Orders Medication Instructions Recorded allopurinol 300 mg tablet 300 mg PO QDAY 02/15/17 aspirin 81 mg tablet,delayed 81 mg PO QDAY 02/15/17 release metoprolol tartrate 25 mg tablet 12.5 mg PO BID #30 tab 08/10/17 hydralazine 25 mg tablet 25 mg PO TID 30 Days #90 tab 12/15/17 omeprazole 40 mg capsule,delayed 40 mg PO DAILY 30 Days #30 cap 12/15/17 release amlodipine 5 mg tablet 5 mg PO DAILY 01/25/18 furosemide 40 mg tablet 40 mg PO DAILY 01/25/18 levothyroxine 100 mcg tablet 100 mcg PO DAILY 01/25/18 spironolactone 25 mg tablet 25 mg PO DAILY 01/25/18 Albuterol Aerosols [Ventolin 2.5 mg INHALATION Q6H PRN PRN 02/07/18 Aerosols] Ondansetron HCl [Zofran] 4 mg PO Q6H PRN PRN 02/07/18 Surgical History: Surgical History (Last Reviewed 02/07/18 @ 21:51 by Larry Wells DO) History of Ronen fundoplication Onset Date: ~10/21/16 Z98.890 History of bladder suspension procedure Z92.89 History of incisional hernia repair Z98.890, Z87.19 1980,2005, 2007, 2010 History of left heart catheterization Onset Date: ~2011 Z98.890 Had cath in [place] History of repair of hiatal hernia Onset Date: ~10/21/16 Z98.890, Z87.19 Surgical History: herniorrhaphy, - - Hiatal hernia repair, multiple inguinal hernia repairs and what sounds like a small bowel resection with a previous right inguinal hernia repair Psychiatric History: No pertinent psych hx [employer] History: No pertinent [employer] history Lives: Alone Smoking Status: Never smoker Tobacco Use: Non-smoker Alcohol: None Drugs: None - *Family History Paternal Family History: Family History (Last Reviewed 02/07/18 @ 21:51 by Larry Wells DO) Mother Hypertension Father Hypertension History Items: Heart Disease Review of Systems Constitutional: Reports: Chills, Malaise, Weakness. Denies: Fever, Weight Change HEENT: Denies: Difficulty Swallowing, Head Aches, Sinus Congestion, Sinus Drainage, Sore Throat Cardiovascular: Denies: Chest Pain, Palpitations Respiratory: Reports: Cough, Shortness of Breath, Shortness of breath at rest, Shortness of breath upon exertion. Denies: Sputum production Gastrointestinal: Denies: Abdominal Pain, Diarrhea, Nausea, Vomiting Genitourinary: Denies: Dysuria Musculoskeletal: Denies: Joint Pain, Joint Tenderness Skin: Denies: Rash, Wounds Neurological: Denies: Numbness, Tingling, Focal weakness Psychiatric: Denies: Anxiety, Depression, Homicidal Ideations, Suicidal Ideations Endocrine: Denies: Change in Body Habitus Hematologic/ Lymphatic: Denies: Easy Bruising, Easy Bleeding VTE Information - Inpt Only VTE Present on Admission: No VTE Mechan Device Prophylaxis: SCD's, Knee High INGRID Hose VTE Pharm Prophylaxis ordered?: Yes Patient Problems: Active and Suspected Problems (Last Reviewed 02/07/18 @ 21:51 by Larry Wells DO) COPD exacerbation (Acute) Hypoxemia (Acute) HAP (hospital-acquired pneumonia) (Acute) Acute respiratory failure with hypoxemia (Acute) Severe sepsis (Acute) History of aortic valve replacement (Acute) bioprosthetic Sepsis (Acute) HCAP (healthcare-associated pneumonia) (Acute) - Physical Exam General: Alert, Cooperative, - - Looks ill HEENT: Atraumatic, PERRLA, EOMI, Normocephalic Oral: Dry Mucosa Neck: Supple, No Nuchal Rigidity, Trachea Midline Lungs: Diminished - ellie in the bases, no wheezing and no rales. no conversational dyspnea Cardiovascular: Regular rate, Regular Rhythm, Normal S1, Normal S2, No Gallop Abdomen: Bowel Sounds Present, Soft, Non Tender, Non-Distended, Obese Extremities: Edema Skin: No rashes, No breakdown Neurological: Cranial nerves II-XII grossly intact, Neuro grossly intact Psych/Mental Status: Normal Affect, Appropriate Vital Signs Temp Pulse Resp BP Pulse Ox 99.1 F 67 28 H 111/64 93 02/07/18 07:19 02/07/18 07:19 02/07/18 07:19 02/07/18 07:19 02/07/18 07:19 Oxygen Flow Rate (L/min) 6 Oxygen Delivery Method Nasal Cannula Weight: 206 lb Body Mass Index (BMI) 38.9 Laboratory Tests Past 24 Hrs 02/07/18 02/07/18 02/07/18 04:40 04:40 04:40 WBC 8.4 RBC 4.12 L Hgb 12.5 Hct 39.3 MCV 95.4 MCH 30.3 MCHC 31.8 L RDW 15.3 H RDW Differential 51.0 H Plt Count 169 MPV 12.4 H Immature Gran % (Auto) 0.400 Neut % (Auto) 78.8 H Lymph % (Auto) 12.5 L [place] % (Auto) 6.9 Eos % (Auto) 1.0 Baso % (Auto) 0.4 Absolute Neuts (auto) 6.6 Absolute Lymphs (auto) 1.05 Total Counted Not Reportable Sodium 138 Potassium 4.6 Chloride 102 Carbon Dioxide 28.0 Anion Gap 8 BUN 15 Creatinine 1.14 H Estim Creat Clear Calc 28.71 Est GFR (MDRD) Af Amer 59 L Est GFR (MDRD) Non-Af 49 L BUN/Creatinine Ratio 13.2 Glucose 158 H Lactic Acid 1.0 Calcium 8.6 Troponin I 0.043 Assessment/Plan All Active Problems (Last Reviewed 02/07/18 @ 21:51 by Larry Wells DO) Aortic insufficiency (Acute) COPD exacerbation (Acute) Hypoxemia (Acute) HAP (hospital-acquired pneumonia) (Acute) Acute respiratory failure with hypoxemia (Acute) Severe sepsis (Acute) History of aortic valve replacement (Acute) Sepsis (Acute) HCAP (healthcare-associated pneumonia) (Acute) Sepsis (Resolved) Demand ischemia (Resolved) Pulmonary edema (Resolved) Small bowel obstruction (Resolved) Impressions 1. Suspected hospital-acquired pneumonia-cannot rule out congestive heart failure at this point or even a viral URI. Her cough is dry and she has a normal white blood cell count. 2. Acute respiratory failure with hypoxemia 3. Severe sepsis 4. Hypothyroidism 5. Aortic stenosis 6. Aortic insufficiency 7. Cardiomyopathy with a 40-45% EF 8. Coronary artery disease 9. Chronic COPD with acute exacerbation 10. Hypertension 11. Pulmonary hypertension 12. History of bioprosthetic aortic valve replacement 13. Morbid obesity Respiratory panel Urine for Legionella and streptococcal antigens Sputum culture Supplemental oxygen to maintain pulse ox at or greater than 90% Heparin subcu for DVT prophylaxis DuoNeb aerosols every 4 hours and every 2 hours albuterol aerosols as needed dyspnea or wheezing Guaifenesin Reevaluate in the morning. If the wheezing does not improve significantly with aerosolized bronchodilators will start steroids. Code Visit Inpatient E&M: 16440 Init Hosp L3
[2018-02-07 09:41] LABS: Hemoglobin A1c 6.2 % (4.2-6.3)
[2018-02-07 09:42] LABS: AST(SGOT) 18 U/L (15-37); Alanine Aminotransfer ALT/SGPT 19 U/L (13-56); Albumin, Serum 3.3 g/dL (3.2-5.0); Alkaline Phosphatase 75 U/L (45-117); Globulin 3.4 g/dL (2.2-4.2); Phosphorus 3.1 mg/dL (2.5-4.9); Protein, Total 6.7 g/dL (6.4-8.2)
[2018-02-07 09:44] LABS: BNP,B-Type NATRIURETIC PEPTIDE 595.3 pg/mL (0-100)
--- NOTE | 2018-02-07 10:04 | PCM.RX.CS ---
Consult Pharmacy has been consulted to manage selected antiobiotic: Vancomycin Type of Consult: New start Suspected Infection: Pneumonia Prior Doses of Antibiotics Received/Current Regimen: Received 1500mg (~15mg/kg) iv x 1 in ER 02.07.18. Labs: Sodium 138 mmol/L (136-145) 02/07/18 04:40 Potassium 4.6 mmol/L (3.5-5.1) 02/07/18 04:40 Chloride 102 mmol/L (98-107) 02/07/18 04:40 Carbon Dioxide 28.0 mmol/L (21.0-32.0) 02/07/18 04:40 Anion Gap 8 (5-15) 02/07/18 04:40 BUN 15 mg/dL (7-18) 02/07/18 04:40 Creatinine 1.14 mg/dL (0.55-1.02) H 02/07/18 04:40 Est GFR (MDRD) Af Amer 59 mL/min (>60) L 02/07/18 04:40 Est GFR (MDRD) Non-Af 49 mL/min (>60) L 02/07/18 04:40 BUN/Creatinine Ratio 13.2 RATIO (10-20) 02/07/18 04:40 Glucose 158 mg/dL (74-106) H 02/07/18 04:40 Microbiology: Microbiology 02/07/18 06:10 Mucosa - Nasopharyngeal Influenza Types A,B Direct FA (ANTONIA) - Final Weight used for dosin kg Estimated Creatinine Clearance: ~29 ml/min Goal Trough: 10-15 mcg/mL Pharmacy Plan for Drug Dosing: Will begin 750mg iv q24h starting 24hr after initial 1500mg iv dose. Vancomycin trough ordered for before 3rd dose on 02.09.18. Pharmacy Service will continue to monitor and adjust dosing as required. Follow-Up Labs: Trough Vancomycin - 02.09.18 @0730 before 0800 dose
[2018-02-07] MEDS: Furosemide 40 MG Tablet PO (10:38)
[2018-02-07] MEDS: guaiFENesin 1,200 MG Tablet 1200 MG PO ×2 (10:38→21:03)
[2018-02-07] MEDS: Metoprolol Tartrate 25 MG Tablet 12.5 MG PO ×2 (10:38→21:04)
[2018-02-07] MEDS: Famotidine 20 MG Tablet PO (10:38)
[2018-02-07] MEDS: amLODIPine 5 MG Tablet PO (10:39)
[2018-02-07 13:34] LABS: M R Staph aureus DNA By PCR Negative (Negative); Probe Check PASS; Specimen Processing Control PASS
--- NOTE | 2018-02-07 13:55 | CASEMGMT ---
DRE TRIPLETT assessment: Face to Face with patient for initial transition planning/care coordination assessment. DRE TRIPLETT introduced self and role at [facility], pt voices understanding and consents to assessment at this time. Pt is sitting up in chair with 6liters oxygen nc in place at this time. Pt is A/Ox4 at this time and answers all questions appropriately at this time. Care providers, pharmacy, and demographics verified at this time. PCP: Carrie Specialists: rodríguez Clay Preferred Pharmacy: [facility] Insurance: [facility] A/B, [employer] [place] Prescription Benefit: [employer] Living Will/HPOA: Pt states does have LW/HPOA. HPOA is on file at [facility] but LW is not. Pt states that brother, Florian Hunter, is HPOA. LNOK: Florain Hunter, brother; Mar Arevalo, granddaughter Living Arrangements: Pt states lives alone in 1 story apartment and states no concerns at home at this time. Pt states no concerns with ADL's Transportation: Pt states drives self and states no transportation concerns at this time. DME/HHC: Pt has the following DME: shower chair, raised toilet seat, cane, grab bars, walker, and nebulizer thru [employer]. CM to follow for home oxygen. Pt states has had [facility] the past and has been to [facility] in the past. Pt states is interested in [facility], if needed. CM to follow PT/OT evals. Pt states no concerns with going home at time of discharge. Pt is retired. Pt states does not smoke or drink ETOH. Pt states no further concerns/needs at this time. CM to follow for any further discharge planning/needs. Advised pt to ask for CM if any further questions/concerns/needs arise, voices understanding. Plan: Home, pending home oxygen testing and PT/OT evals. [place] DRE TRIPLETT
[2018-02-07] MEDS: Piperacil/Tazobactam 3.375 GM/50 ML ML IV ×2 (15:02→21:03)
[2018-02-07] MEDS: Heparin Injection (Vial) 5,000 UNIT/ML VIAL 5000 UNIT SC ×2 (15:05→21:04)
--- NOTE | 2018-02-07 16:51 | CASEMGMT ---
POA form in echart, no living will in echart. SW printing POA form and placed in paper chart. RAVEN Chamberlain, EYEDOTTER
[2018-02-07 18:08] LABS: Bacteria 0 SEEN /hpf (None Seen); Mucous, Urine 0 SEEN /hpf (<or=2+); Red Blood Cells-Urine 0 SEEN /hpf (0-5); White Blood Cells 0 SEEN /hpf (0-5)
[2018-02-07 18:12] LABS: Color, Urine Yellow (Yellow); Glucose, Dipstick Normal (Normal); Ketone-Dipstick Negative (Negative); Leukocyte Esterase-Dipstick Negative /ul (Negative); Nitrite-Dipstick Negative (Negative); Occult Blood-Urine Negative /ul (Negative); Protein-Dipstick 15 mg/dl (Negative); Urine Bilirubin Dipstick Negative (Negative); Urine Clarity Sl. Cloudy (Clear); Urine Urobilinogen Normal (Normal)
[2018-02-07 18:22] LABS: Squamous Epithelial Cells - UA 0-5 SEEN /hpf (5-10)
[2018-02-08] VITALS (18 sets, daily range): BP systolic 126–151; BP diastolic 63–94; PULSE 55–70; RESP 14–24; TEMP 36.4–36.9; O2SAT 87–94
[2018-02-08] MEDS: Acetaminophen 325 MG Tablet 650 MG PO ×2 (00:20→19:55)
[2018-02-08] MEDS: Ipratropium/Albuterol Sulfate 3 ML AMPUL.NEB INHALATION ×6 (03:21→22:45)
[2018-02-08] MEDS: Piperacil/Tazobactam 3.375 GM/50 ML ML IV (05:44)
[2018-02-08] MEDS: Levothyroxine 100 MCG Tablet PO (05:44)
[2018-02-08] MEDS: Heparin Injection (Vial) 5,000 UNIT/ML VIAL 5000 UNIT SC ×3 (05:44→21:59)
[2018-02-08 06:55] LABS: Anion Gap 9 (5-15); BUN 23 mg/dL (7-18); BUN/Creat Ratio 19.2 RATIO (10-20); Calcium,Total 8.3 mg/dL (8.5-10.1); Chloride 105 mmol/L (98-107); EST Glomerular Filtration Rate 46 mL/min (>60); Est Glom Filt Rate - Afr Amer 55 mL/min (>60); Estimated Creatinine Clearance 27.27 ml/min; Glucose 153 mg/dL (74-106); Potassium 4.2 mmol/L (3.5-5.1); Sodium Level 141 mmol/L (136-145)
[2018-02-08 07:11] LABS: Hematocrit 36.5 % (37-47); Hemoglobin 11.6 g/dl (12.0-15.0); Lymphocyte % 7.3 % (19-41); Mean Corp Hgb Conc 31.8 g/gl (32-36); Mean Corpuscular Hgb 29.9 pg (27.0-32.0); Mean Corpuscular Volume 94.1 fL (81-99); Mean Platelet Vol. 12.3 fl (6.2-12.0); Monocyte# 0.61 X10^3/uL; Monocyte% 7.4 % (0-10); Neutrophil # 7.03 X10^3/uL (2.7-7.7); Neutrophil % 85.1 % (47-70); Platelet Count 166 K/mm3 (150-450); RBC Distribution Width CV 15.6 % (11.6-14.6); RBC Distribution Width SD 53.6 fl (35.1-43.9); Red Blood Count 3.88 M/mm3 (4.2-5.4); White Blood Count 8.3 K/mm3 (4.4-11.0)
[2018-02-08 07:13] LABS: Differential Indicated SCAN CRITERIA MET; POSITIVE COUNT NO; POSITIVE DIFFERENTIAL YES; POSITIVE MORPHOLOGY NO
[2018-02-08] MEDS: Aspirin E.C. 81 MG Tablet PO (08:03)
[2018-02-08] MEDS: Allopurinol 300 MG Tablet PO (08:03)
[2018-02-08] MEDS: Spironolactone 25 MG Tablet PO (08:03)
[2018-02-08] MEDS: Metoprolol Tartrate 25 MG Tablet 12.5 MG PO ×2 (09:41→21:58)
[2018-02-08] MEDS: guaiFENesin 1,200 MG Tablet 1200 MG PO ×2 (09:41→21:58)
[2018-02-08] MEDS: Furosemide 40 MG Tablet PO (09:42)
[2018-02-08] MEDS: Famotidine 20 MG Tablet PO (09:42)
[2018-02-08] MEDS: amLODIPine 5 MG Tablet PO (09:42)
--- NOTE | 2018-02-08 14:50 | PCM.PROGNOTE ---
Patient Problems: Active and Suspected Problems (Last Reviewed 02/07/18 @ 21:51 by Larry Wells DO) COPD exacerbation (Acute) Hypoxemia (Acute) HAP (hospital-acquired pneumonia) (Acute) Acute respiratory failure with hypoxemia (Acute) Severe sepsis (Acute) History of aortic valve replacement (Acute) bioprosthetic Sepsis (Acute) HCAP (healthcare-associated pneumonia) (Acute) Subjective: Patient is an 82-year-old female admitted to [facility] on 02/07/2018 complaining of cough and shortness of breath. Chest x-ray was a poor study with poor inspiration and could not exclude bibasilar pneumonia versus pleural effusions/pulmonary vascular congestion. BNP was 595 which is not unremarkable for a patient with stage IV chronic renal failure. All events of the past 24 hours of been reviewed. Tmax over the past 24 hours is 100.9 ?F. Vital signs are stable. Telemetry shows sinus rhythm and sinus bradycardia with no significant ectopy She is 92% saturated on room air at rest today. All lab was personally reviewed. The white blood cell count is 8.3 today with 85% neutrophils. Hemoglobin is 11.6 and platelets are within normal limits. Creatinine today is 1.2, up from 1.14 yesterday. Initial troponin was 0.043 yesterday and the second troponin was 0.054, once again not unremarkable in a patient with stage IV chronic renal failure. White blood cells in the urine are 0. Microbiology: Respiratory panel is positive for RSV A she is looking and feeling much better today. Cough is dry and she has been unable to produce a sputum. She is 90-93% saturated on room air at rest but dropped to 86% on room air with ambulation. She quickly bounced back up to 90% when she sat down. Objective: PHYSICAL EXAM: GENERAL: alert, oriented X 3, Cooperative, NAD, sitting in a chair and look much more alert and less toxic today ORAL: moist mucosa, no mucosal lesions NECK: No JVD, supple, trachea midline LUNGS: diminished throughout, scattered mild end exp wheezes, no rales, no conversational dyspnea, no accessory muscle use, symmetric chest expansion HEART: RRR, Normal S1 and S2, no rub, no gallop ABDOMEN: soft, NT, ND, BS present, no guarding with palpation EXTREMITIES: edema of the ankles - mild, no cyanosis, no calf tenderness SKIN: No rashes, no breakdown NEUROLOGIC: no focal neurologic deficits PSYCH: appropriate, normal affect, pleasant - Physical Exam Vital Signs Temp Pulse Resp BP Pulse Ox 97.5 F L 58 L 18 132/72 H 92 02/08/18 08:01 02/08/18 10:26 02/08/18 10:26 02/08/18 09:41 02/08/18 08:01 Oxygen Flow Rate (L/min) 3 Oxygen Delivery Method Room Air Weight: 211 lb 10.3 oz Body Mass Index (BMI) 39.9 Intake and Output for Last 24 Hours 02/06/18 02/07/18 02/08/18 23:59 23:59 23:59 Intake Total 2121.5 / 2121.5 641.8 / 641.8 Output Total 450 / 450 Balance 1671.5 / 1671.5 641.8 / 641.8 Microbiology Past 72 Hours 02/07/18 18:00 Streptococcus pneumoniae Antigen (M - Final Urine Catheter - Catheter 02/07/18 18:00 Legionella Antigen - Final Urine Catheter - Catheter 02/07/18 10:38 Respiratory Panel (PCR) - Final Mucosa - Nasopharyngeal RSV A 02/07/18 06:10 Influenza Types A,B Direct FA (ANTONIA) - Final Mucosa - Nasopharyngeal Laboratory Tests Past 24 Hrs 02/07/18 02/08/18 02/08/18 18:00 05:34 05:34 WBC 8.3 RBC 3.88 L Hgb 11.6 L Hct 36.5 L MCV 94.1 MCH 29.9 MCHC 31.8 L RDW 15.6 H RDW Differential 53.6 H Plt Count 166 MPV 12.3 H Immature Gran % (Auto) 0.200 Neut % (Auto) 85.1 H Lymph % (Auto) 7.3 L [place] % (Auto) 7.4 Eos % (Auto) 0.0 Baso % (Auto) 0.0 Absolute Neuts (auto) 7.0 Absolute Lymphs (auto) 0.60 L Total Counted Not Reportable Sodium 141 Potassium 4.2 Chloride 105 Carbon Dioxide 27.0 Anion Gap 9 BUN 23 H Creatinine 1.20 H Estim Creat Clear Calc 27.27 Est GFR (MDRD) Af Amer 55 L Est GFR (MDRD) Non-Af 46 L BUN/Creatinine Ratio 19.2 Glucose 153 H Calcium 8.3 L Urine Color Yellow Urine Clarity Sl. Cloudy Urine pH 7.0 Ur Specific [place] 1.010 Urine Protein 15 H Urine Glucose (UA) Normal Urine Ketones Negative Urine Occult Blood Negative Urine Nitrite Negative Urine Bilirubin Negative Urine Urobilinogen Normal Ur Leukocyte Esterase Negative Urine RBC 0 SEEN Urine WBC 0 SEEN Ur Squamous Epith Cells 0-5 SEEN Urine Bacteria 0 SEEN Urine Mucus 0 SEEN Medical Necessity - Tobacco Use Smoking Status: Never smoker Tobacco Use: Non-smoker Assessment/Plan All Active Problems (Last Reviewed 02/07/18 @ 21:51 by Larry Wells DO) Aortic insufficiency (Acute) COPD exacerbation (Acute) Hypoxemia (Acute) HAP (hospital-acquired pneumonia) (Acute) Acute respiratory failure with hypoxemia (Acute) Severe sepsis (Acute) History of aortic valve replacement (Acute) Sepsis (Acute) HCAP (healthcare-associated pneumonia) (Acute) Sepsis (Resolved) Demand ischemia (Resolved) Pulmonary edema (Resolved) Small bowel obstruction (Resolved) Impressions 1. Suspected hospital-acquired pneumonia-cannot rule out congestive heart failure at this point or even a viral URI. Her cough is dry and she has a normal white blood cell count. 2. Acute respiratory failure with hypoxemia 3. Severe sepsis 4. Hypothyroidism 5. Aortic stenosis 6. Aortic insufficiency 7. Cardiomyopathy with a 40-45% EF 8. Coronary artery disease 9. Chronic COPD with acute exacerbation 10. Hypertension 11. Pulmonary hypertension 12. History of bioprosthetic aortic valve replacement 13. Morbid obesity 14. RSV A infection Continue aerosolized bronchodilators Continue Lasix 40 mg p.o. daily DC Zosyn and vancomycin Recheck PA and lateral chest x-ray in the a.m. Repeat pulse ox on room air with ambulation in the a.m. to determine possible need for home oxygen Home health care at discharge Start p.o. steroids to assist with wheezing Code Visit Inpatient E&M: 72108 Subs Hosp L2
--- NOTE | 2018-02-08 15:30 | NURSING ---
amb in room resting SpO2 92% RA w/ambulation SpO2 86%RA recovers in <2min to 94% while sitting
[2018-02-08] MEDS: predniSONE 20 MG Tablet PO (19:55)
[2018-02-09] VITALS (9 sets, daily range): BP systolic 133–148; BP diastolic 79–83; PULSE 59–69; RESP 18; TEMP 36.6–36.7; O2SAT 84–94
[2018-02-09] MEDS: Ipratropium/Albuterol Sulfate 3 ML AMPUL.NEB INHALATION ×3 (02:50→10:41)
[2018-02-09] MEDS: Heparin Injection (Vial) 5,000 UNIT/ML VIAL 5000 UNIT SC (06:31)
[2018-02-09] MEDS: Levothyroxine 100 MCG Tablet PO (06:31)
--- NOTE | 2018-02-09 07:30 | RAD_ITS ---
STUDY: X-RAY CHEST REASON FOR EXAM: Female, 82 years old. History of pneumonia. TECHNIQUE: PA and lateral views of the chest. COMPARISON: Comparison is made with prior study dated February 07, 2018. FINDINGS: There is elevation of the right hemidiaphragm. Residual right lower lobe infiltrate although this has improved as compared to prior study. Progressive atelectasis and/or infiltrate is seen at the left lung base. There is blunting of both cuts cordell angles. Sternal cerclage wires are present from a prior sternotomy. Prior mitral valve replacement. Normal mediastinum and sebastián. Normal visualized pulmonary arteries. There is atherosclerotic tortuosity of the aortic arch and descending thoracic aorta. There is demineralization of the osseous structures. Normal visualized ribs, clavicles, and shoulders. There is no demonstrated abnormality of the visualized soft tissue structures of the upper abdomen. RAD/Chest PA and Lateral IMPRESSION: Improved aeration of the right lower lobe. Progressive atelectasis and/or infiltrate in the left lower lobe. Electronically Signed: Anthony Talley MD at 11:30 EST Tel [phone], Service support ,
[2018-02-09] MEDS: predniSONE 20 MG Tablet 40 MG PO (09:25)
[2018-02-09] MEDS: guaiFENesin 1,200 MG Tablet 1200 MG PO (09:25)
[2018-02-09] MEDS: Allopurinol 300 MG Tablet PO (09:25)
[2018-02-09] MEDS: amLODIPine 5 MG Tablet PO (09:25)
[2018-02-09] MEDS: Aspirin E.C. 81 MG Tablet PO (09:25)
[2018-02-09] MEDS: Famotidine 20 MG Tablet PO (09:25)
[2018-02-09] MEDS: Furosemide 40 MG Tablet PO (09:25)
[2018-02-09] MEDS: Metoprolol Tartrate 25 MG Tablet 12.5 MG PO (09:25)
[2018-02-09] MEDS: Spironolactone 25 MG Tablet PO (09:26)
--- NOTE | 2018-02-09 10:28 | CASEMGMT ---
Per Yen ERICKSON, pt qualifies for home oxygen at this time and pt had stated [employer] as preference to this RN CM previously. Referral faxed to [employer] at this time. Therapy is recommending HHC for pt at this time. This RN CM to room to speak with pt and pt is agreeable to HHC and would like [facility] as she has had them in the past. Call to [facility] and they state can take pt at this time. Referral faxed at this time. Maeve ERICKSON CM
--- NOTE | 2018-02-09 10:47 | DCINST_ITS ---
- Discharge Diagnoses Current Active Problems: Current Active and Chronic Problems (Last Reviewed 02/07/18 @ 21:51 by Larry Wells DO) Community-acquired pneumonia secondary to RSV A Acute respiratory failure with hypoxemia Severe sepsis You will use the following diet at home:: Other - Resume previous diet Your food should be the consistency of: Regular Your liquids should be the consistency of: Regular/Thin Discharge Activity: - - Avoid exposure to any strong smells such as bleach, cleaning products, strong colognes or perfumes, paint fumes and smoke of any kind. Avoid sudden exposure to cold air because this can cause bronchospasm. You may want to cover your mouth when you go outside in the winter. Avoid exposure to anyone who is sick with a cough or sore throat. Call your doctor if you observe: Fever of 101 or Higher, Shortness of breath, Dizziness, Fainting spells, Chest pain, Calf discomfort Additional Instructions: You have pneumonia but it is caused by a virus called RSV A and not by a bacteria. This virus also exacerbated your COPD. Antibiotics do not work to treat viruses.......they just have to run their course and it usually takes about 10 days. I am discharging you on a steroid to decrease the inflammation in the lungs and a cough suppressant. You should use your albuterol aerosol treatments every 4 hours while awake for the next 4-5 days......you can use it as often as every 2 hours if you are wheezing and short of breath. You are being discharged on oxygen. You do not need it if you are sitting in a chair BUT, you should wear the oxygen at 3 LPM any time you are active. You should also wear it at night. Allergies/Adverse Reactions: Allergies No Known Allergies Allergy (Verified 01/25/18 14:03) Medications to take at Discharge allopurinol 300 mg tablet 300 mg PO QDAY 02/15/17 aspirin 81 mg tablet,delayed release 81 mg PO QDAY 02/15/17 metoprolol tartrate 25 mg tablet 12.5 mg PO BID #30 tab 08/10/17 hydralazine 25 mg tablet 25 mg PO TID 30 Days #90 tab 12/15/17 omeprazole 40 mg capsule,delayed release 40 mg PO DAILY 30 Days #30 cap 12/15/17 amlodipine 5 mg tablet 5 mg PO DAILY 01/25/18 furosemide 40 mg tablet 40 mg PO DAILY 01/25/18 levothyroxine 100 mcg tablet 100 mcg PO DAILY 01/25/18 spironolactone 25 mg tablet 25 mg PO DAILY 01/25/18 Albuterol Aerosols [Ventolin Aerosols] 2.5 mg INHALATION Q6H PRN PRN 02/07/18 Ondansetron HCl [Zofran] 4 mg PO Q6H PRN PRN 02/07/18 Acetaminophen [Tylenol Tablet] 650 mg PO Q6H PRN PRN tablet 02/09/18 Benzonatate [Tessalon Perle] 100 mg PO Q4H PRN PRN #20 cap 02/09/18 Prednisone 10 mg PO UD #30 tab 02/09/18 The following prescriptions were given: Benzonatate [Tessalon Perle] 100 mg PO Q4H PRN PRN #20 cap PRN Reason: Cough Prednisone 10 mg PO UD #30 tab Primary Care Physician: Pete Butler DO [Primary Care Provider] - Please follow up with your Primary Care Physician in: 7-10 days Test Results: Test results from this visit will be discussed in further detail at your follow- up appointment, if applicable. Proposed Discharge Date: 02/09/18
--- NOTE | 2018-02-09 10:51 | PCM.DC.SUM ---
Discharge Date and Diagnosis - Problem List Patient Problems: Active and Suspected Problems (Last Reviewed 02/07/18 @ 21:51 by Larry Wells DO) COPD exacerbation (Acute) Hypoxemia (Acute) HAP (hospital-acquired pneumonia) (Acute) Acute respiratory failure with hypoxemia (Acute) Severe sepsis (Acute) History of aortic valve replacement (Acute) bioprosthetic Sepsis (Acute) HCAP (healthcare-associated pneumonia) (Acute) Date of Admission: 02/07/18 Date of Discharge: 02/09/18 - Primary Discharge Diagnosis Active and Suspected Problems (Last Reviewed 02/07/18 @ 21:51 by Larry Wells DO) Community-acquired pneumonia secondary to RSV A Acute respiratory failure with hypoxemia Acute exacerbation of COPD Severe sepsis RSV A infection - Secondary Discharge Diagnosis Chronic Problems (Last Reviewed 02/07/18 @ 21:51 by Larry Wells DO) Hypothyroid (Chronic) Abnormal EKG (Chronic) Aortic stenosis (Chronic) Cardiomyopathy (Chronic) with a 40-45% EF CAD (coronary artery disease) (Chronic) COPD (chronic obstructive pulmonary disease) (Chronic) Obesity (Chronic) Hypertension (Chronic) Secondary pulmonary arterial hypertension (Chronic) History of a bioprosthetic aortic valve replacement Hospital Course and Treatment Imaging Results: 02/09/18 07:30 Chest PA and Lateral [RAD] AM (NON MEDS) Clinical Impression(s) from Imaging Studies Chest X-Ray 02/07/18 05:03 IMPRESSION: 1. Bilateral basilar airspace consolidations and/or atelectasis. 2. There may be bilateral basilar pulmonary fibrosis as well. Electronically Signed: Jodi Dailey MD at 5:49 EST , Service support , Microbiology 02/07/18 18:00 Urine, Catheterized Urine Culture - Preliminary Culture exhibits no growth. 02/07/18 04:40 Blood Culture (Wb) - Line Draw Blood Culture - Preliminary No growth in 48 hours. 02/07/18 06:30 Blood Culture (Wb) - Anticubital Right Blood Culture - Preliminary No growth in 48 hours. 02/07/18 18:00 Urine Catheter - Catheter Streptococcus pneumoniae Antigen (M - Final 02/07/18 18:00 Urine Catheter - Catheter Legionella Antigen - Final 02/07/18 10:38 Mucosa - Nasopharyngeal Respiratory Panel (PCR) - Final RSV A 02/07/18 06:10 Mucosa - Nasopharyngeal Influenza Types A,B Direct FA (ANTONIA) - Final none Operations: None Procedures: None Summary of Care Provided: The patient is a 82 year old F with a past medical history of COPD, aortic stenosis, history of bioprosthetic aortic valve replacement, hypertension, coronary artery disease, cardiomyopathy with a 40-45% EF, morbid obesity, hypothyroidism, aortic regurgitation and moderate secondary pulmonary arterial hypertension who presented to the ED on 02/07/18 with c/o cough, progressive SOB over the past week and chills. Vital signs of presentation to the emergency room were temperature 99.4, heart rate 77, blood pressure 152/75, respiratory rate 28 and she was 83% saturated on a 4 L nasal cannula and 98% saturated on a nonrebreather. Chest x-ray was taken with a poor inspiratory effort and revealed possible bibasilar infiltrates versus atelectasis. She had diffuse wheezing in all lung omalley when she initially presented to the ED but, after aerosolized bronchodilators the wheezing improved significantly and the BS's were mostly diminished. Because she had been admitted to a hospital in [place] in the past 3 months she was treated for HAP in the ED and was given vancomycin and Zosyn. A respiratory panel was positive for RSV a. Influenza swab was negative. Legionella and streptococcal antigens in the urine were negative. A urine culture had no growth and blood culture had no growth. Antibiotics were discontinued and the patient was started on steroids in addition to inhaled bronchodilators. On 01/09/2019 she had been afebrile for greater than 24 hours. Her pulse ox on room air at rest was 91% and the pulse ox ambulating on room air was 84%. When ambulated on 3 L her pulse ox was 92%. She was discharged home on 02/09/2018 on a tapering dose of prednisone over the next 10 days. She was given a prescription for Tessalon Perles to control her dry cough. She will continue albuterol aerosols every 4 hours while awake and every 2 hours as needed for wheezing or shortness of breath at home. She will follow-up with Dr. Butler in 7-10 days. Check coughing 70 of which in isolation PHYSICAL EXAM: GENERAL: alert, oriented X 3, Cooperative, NAD, sitting in a chair and look much more alert and less toxic today ORAL: moist mucosa, no mucosal lesions NECK: No JVD, supple, trachea midline LUNGS: diminished throughout, scattered mild end exp wheezes, no rales, no conversational dyspnea, no accessory muscle use, symmetric chest expansion HEART: RRR, Normal S1 and S2, no rub, no gallop ABDOMEN: soft, NT, ND, BS present, no guarding with palpation EXTREMITIES: edema of the ankles - mild, no cyanosis, no calf tenderness SKIN: No rashes, no breakdown NEUROLOGIC: no focal neurologic deficits PSYCH: appropriate, normal affect, pleasant This note was generated with [employer] software. It may contain incorrect words, spelling, and punctuation that were not noted in checking the note before signing. Patient Problems: Active and Suspected Problems (Last Reviewed 02/07/18 @ 21:51 by Larry Wells DO) COPD exacerbation (Acute) Hypoxemia (Acute) HAP (hospital-acquired pneumonia) (Acute) Acute respiratory failure with hypoxemia (Acute) Severe sepsis (Acute) History of aortic valve replacement (Acute) bioprosthetic Sepsis (Acute) HCAP (healthcare-associated pneumonia) (Acute) - Physical Exam Vital Signs Temp Pulse Resp BP Pulse Ox 98.1 F 59 L 18 148/79 H 91 02/09/18 09:18 02/09/18 10:42 02/09/18 10:42 02/09/18 09:18 02/09/18 09:54 Oxygen Flow Rate (L/min) [ 3 AMBULATION with Oxygen] Oxygen Flow Rate (L/min) 3 Oxygen Delivery Method Nasal Cannula Weight: 211 lb 10.3 oz Body Mass Index (BMI) 39.9 Intake and Output for Last 24 Hours 02/07/18 02/08/18 02/09/18 23:59 23:59 23:59 Intake Total 2121.5 / 2121.5 991.8 / 991.8 Output Total 450 / 450 Balance 1671.5 / 1671.5 991.8 / 991.8 Microbiology Past 72 Hours 02/07/18 18:00 Urine Culture - Preliminary Urine, Catheterized Culture exhibits no growth. 02/07/18 04:40 Blood Culture - Preliminary Blood Culture (Wb) - Line Draw No growth in 48 hours. 02/07/18 06:30 Blood Culture - Preliminary Blood Culture (Wb) - Anticubital Right No growth in 48 hours. 02/07/18 18:00 Streptococcus pneumoniae Antigen (M - Final Urine Catheter - Catheter 02/07/18 18:00 Legionella Antigen - Final Urine Catheter - Catheter 02/07/18 10:38 Respiratory Panel (PCR) - Final Mucosa - Nasopharyngeal RSV A 02/07/18 06:10 Influenza Types A,B Direct FA (ANTONIA) - Final Mucosa - Nasopharyngeal Discharge Activity: - - Avoid exposure to any strong smells such as bleach, cleaning products, strong colognes or perfumes, paint fumes and smoke of any kind. Avoid sudden exposure to cold air because this can cause bronchospasm. You may want to cover your mouth when you go outside in the winter. Avoid exposure to anyone who is sick with a cough or sore throat. Call your doctor if you observe: Fever of 101 or Higher, Shortness of breath, Dizziness, Fainting spells, Chest pain, Calf discomfort Home Medications: Medications to take at Discharge allopurinol 300 mg tablet 300 mg PO QDAY 02/15/17 aspirin 81 mg tablet,delayed release 81 mg PO QDAY 02/15/17 metoprolol tartrate 25 mg tablet 12.5 mg PO BID #30 tab 08/10/17 hydralazine 25 mg tablet 25 mg PO TID 30 Days #90 tab 12/15/17 omeprazole 40 mg capsule,delayed release 40 mg PO DAILY 30 Days #30 cap 12/15/17 amlodipine 5 mg tablet 5 mg PO DAILY 01/25/18 furosemide 40 mg tablet 40 mg PO DAILY 01/25/18 levothyroxine 100 mcg tablet 100 mcg PO DAILY 01/25/18 spironolactone 25 mg tablet 25 mg PO DAILY 01/25/18 Albuterol Aerosols [Ventolin Aerosols] 2.5 mg INHALATION Q6H PRN PRN 02/07/18 Ondansetron HCl [Zofran] 4 mg PO Q6H PRN PRN 02/07/18 Acetaminophen [Tylenol Tablet] 650 mg PO Q6H PRN PRN tablet 02/09/18 Benzonatate [Tessalon Perle] 100 mg PO Q4H PRN PRN #20 cap 02/09/18 Prednisone 10 mg PO UD #30 tab 01/02/19 Following Prescrptions Were Given to Patient: Benzonatate [Tessalon Perle] 100 mg PO Q4H PRN PRN #20 cap PRN Reason: Cough Prednisone 10 mg PO UD #30 tab Primary Care Physician: Pete Butler DO [Primary Care Provider] - Please follow up with your Primary Care Physician in: 7-10 days Disposition: Home with Home Health Minutes spent on discharge:: 35 Patient Condition:: Stable Medical Necessity - Tobacco Use Smoking Status: Never smoker Tobacco Use: Non-smoker Meaningful Use Info Meaningful Use Diagnoses (Choose all that apply): None applicable Code Visit Inpatient E&M: 65847 Disch Hosp
[2018-02-09] MEDS: Benzonatate 100 MG Capsule PO (10:56)
--- NOTE | 2018-02-09 13:04 | CASEMGMT ---
D/c summary and instructions faxed to [place] at this time. Maeve ERICKSON CM
--- NOTE | 2018-02-10 16:49 | CASEMGMT ---
DRE TRIPLETT DC Phone Call DC Date: 02.09.18 DC Disposition: Home with [facility]. LACE/STRATA: 11/10 Intro role of CM to patient via phone. Per pt home health nurse saw her today, reviewed medicines and assisted pt with teaching. Pt states she still is not feeling well (stuffy nose, tired). DRE TRIPLETT reviewed with pt to call PCP or HH nurse if symptoms worsen. Pt has f/u appointment. Reviewed medicines with her re: Prednisone and Tessalon Pearles. Maggie CHIUN RN ACM
== END 2018-02-09 13:39 | disposition home health service (06) | DRG 871 ==
LOC: ED 07:15 → PCU 07:17
PROVIDERS: Admitting Provider Internal Medicine; Emergency Provider Emergency Medicine; Family Provider Preventive Medicine Occupational Medicine; PCP Preventive Medicine Occupational Medicine; Visit Provider Internal Medicine
DX: A41.9 Sepsis, unspecified organism (principal); J96.01 Acute respiratory failure with hypoxia; J12.1 Respiratory syncytial virus pneumonia; J44.0 Chronic obstructive pulmonary disease with (acute) lower respiratory infection; J44.1 Chronic obstructive pulmonary disease with (acute) exacerbation; I42.9 Cardiomyopathy, unspecified; R65.20 Severe sepsis without septic shock; E03.9 Hypothyroidism, unspecified; I25.10 Atherosclerotic heart disease of native coronary artery without angina pectoris; E66.9 Obesity, unspecified; Z68.39 Body mass index [BMI] 39.0-39.9, adult; I27.21 Secondary pulmonary arterial hypertension; Z95.3 Presence of xenogenic heart valve; I10 Essential (primary) hypertension; I35.0 Nonrheumatic aortic (valve) stenosis
CPT/HCPCS: 36415; 71045; 71046; 80048; 80076; 81001; 83036; 83605; 83735; 83880; 84100; 84443; 84484; 85025; 87040; 87086; 87449; 87633; 87641; 87804; 93005; 94640; 94762; 97110; 97162; 97166; 97530; 97535; 97802; 99285; J7030; J7040; A4216; J2405

== ENCOUNTER → 2018-10-22 09:03 | Outpatient (CLI) | payer MEDICARE, OTHER, SELFPAY ==
[2018-10-20 09:18] VITALS: BMI 39.9
[2018-10-22 10:49] LABS: AST(SGOT) 16 U/L (15-37); Alanine Aminotransfer ALT/SGPT 18 U/L (13-56); Albumin, Serum 3.8 g/dL (3.2-5.0); Alkaline Phosphatase 106 U/L (45-117); Bilirubin, Direct 0.08 mg/dL (0.00-0.30); Cholesterol 174 mg/dL (200); Globulin 3.9 g/dL (2.2-4.2); High Density Lipoprotein 44 mg/dL; Protein, Total 7.7 g/dL (6.4-8.2); Triglycerides 138 mg/dL; Very Low Density Lipoprotein 28 mg/dL (5-40)
== END ==
PROVIDERS: Family Provider Preventive Medicine Occupational Medicine; PCP Preventive Medicine Occupational Medicine; Referring Provider Internal Medicine Cardiovascular Disease; Visit Provider Internal Medicine Cardiovascular Disease
DX: I35.1 Nonrheumatic aortic (valve) insufficiency (principal); Z13.220 Encounter for screening for lipoid disorders; Z79.899 Other long term (current) drug therapy
CPT/HCPCS: 36415; 80061; 80076

== ENCOUNTER → 2018-12-06 12:41 | Outpatient (CLI) | payer MEDICARE, OTHER, SELFPAY ==
[2018-10-20 09:18] VITALS: BMI 39.9
--- NOTE | 2018-12-06 12:43 | ECHOD_ITS ---
Reason For Study: Valve Replacement Procedure This was a 2D Doppler, Color Flow transthoracic echocardiogram. The study was technically difficult. Contrast injection was performed. Exam performed in department. Left Ventricle Mild concentric left ventricular hypertrophy. The estimated ejection fraction is 45-50 %. Stage 1 diastolic dysfunction. There is mild to moderate global hypokinesis of the left ventricle. Right Ventricle Normal size and thickness. Normal systolic function. Atria Normal left atrium. Normal right atrium. Aneurysmal atrial septum. Bubble contrast study negative for right to left interatrial shunt. Mitral Valve Mild diffuse mitral valve thickening. Tricuspid Valve Normal tricuspid valve. Trivial tricuspid valve insufficiency. Right ventricular systolic pressure estimated to be 29 mmHg. Aortic Valve Peak aortic valve gradient 19 mmHg. Mean aortic valve gradient 7 mmHg. Stable appearing bioprosthetic aortic valve apparatus. Pulmonic Valve Normal pulmonic valve. Great Vessels Calcified aortic root. Mild atherosclerosis of the aortic arch. Normal inferior vena cava. Inferior vena cava collapse with sniff. Pericardium/Pleural No pericardial effusion. Medication 22 gauge I.V. with prn adaptor inserted into right arm. Diluted definity 3ml given slow IV push to enhance endocardial definition. Performed a rapid injection of agitated mix of 9 cc saline and 1cc air to assess for atrial septal defect. MMode/2D Measurements & Calculations LVIDd: 4.0 cm IVSd: 1.5 cm LVOT diam: 2.0 cm LVIDs: 3.0 cm LVPWd: 1.0 cm FS: 24.8 % LVOT area: 3.3 cm2 LAV(MOD-bp): 39.6 ml LVAd ap4: 27.1 cm2 SV(MOD-sp4): 50.4 ml LAV(MOD-bp) Indexed: 20.3 ml/m2 EDV(MOD-sp4): 84.7 ml LAV(MOD-sp2): 33.5 ml EDV(sp4-el): 88.1 ml LAV(MOD-sp4): 45.6 ml LVAs ap4: 15.3 cm2 ESV(MOD-sp4): 34.3 ml ESV(sp4-el): 34.8 ml EF(MOD-sp4): 59.5 % EF(sp4-el): 60.5 % SV(sp4-el): 53.3 ml LA A4 area: 16.4 cm2 RA A4 area: 13.2 cm2 Time Measurements MV dec time: 0.29 sec Doppler Measurements & Calculations MV E max benjie: 49.6 cm/sec Lat Peak E' Benjie: 7.0 cm/sec Med Peak E' Benjie: 3.5 cm/sec MV A max benjie: 89.0 cm/sec E/E' lat: 7.1 E/E' med: 14.2 MV E/A: 0.56 MV V2 max: 90.5 cm/sec MV P1/2t max benjie: 59.7 cm/sec Ao V2 max: 214.8 cm/sec MV max P.3 mmHg MV P1/2t: 128.2 msec Ao max P.5 mmHg MV V2 mean: 41.4 cm/sec Ao V2 mean: 124.0 cm/sec MV mean P.82 mmHg MV dec slope: 136.4 cm/sec2 Ao mean P.6 mmHg MV V2 VTI: 25.3 cm MVA(P1/2t): 1.7 cm2 Ao V2 VTI: 46.4 cm MVA(VTI): 2.3 cm2 RAJIV(I,D): 1.2 cm2 RAJIV(V,D): 1.1 cm2 LV V1 max: 75.0 cm/sec SV(LVOT): 57.4 ml PA V2 max: 79.9 cm/sec LV V1 max P.2 mmHg LV V1 mean P.5 mmHg LV V1 mean: 59.0 cm/sec LV V1 VTI: 17.6 cm TR max benjie: 242.4 cm/sec TR max P.5 mmHg Interpretation Summary Mild concentric left ventricular hypertrophy. The estimated ejection fraction is 45-50 %. Stage 1 diastolic dysfunction. There is mild to moderate global hypokinesis of the left ventricle. Bubble contrast study negative for right to left interatrial shunt. Trivial tricuspid valve insufficiency. Right ventricular systolic pressure estimated to be 29 mmHg. Stable appearing and normal functioning bioprosthetic aortic valve apparatus. Peak aortic valve gradient 19 mmHg. Mean aortic valve gradient 7 mmHg. Compared to echo reporrt dated 03/05/2017, no appreciable changes noted. The study was technically difficult. Contrast injection was performed. Ordering Physician: Pete Clay Referring Physician: Pete Butler Performed By: Mert Simpson RCS
== END ==
PROVIDERS: Family Provider Preventive Medicine Occupational Medicine; PCP Preventive Medicine Occupational Medicine; Referring Provider Internal Medicine Cardiovascular Disease; Visit Provider Internal Medicine Cardiovascular Disease
DX: I35.0 Nonrheumatic aortic (valve) stenosis (principal); I35.1 Nonrheumatic aortic (valve) insufficiency; I42.9 Cardiomyopathy, unspecified; I27.21 Secondary pulmonary arterial hypertension; Z95.2 Presence of prosthetic heart valve
CPT/HCPCS: 93306; Q9957; A4216; C8929

== ENCOUNTER 2020-01-04 17:21 | Emergency (ER) | payer MEDICARE, OTHER, SELFPAY ==
[2019-12-14 15:37] VITALS: BMI 41.3
[2020-01-04 17:22] VITALS: BP 159/103; PULSE 70; RESP 19; TEMP 36.2; O2SAT 95; BMI 41.3
--- NOTE | 2020-01-04 17:48 | CT_ITS ---
STUDY: CT ABDOMEN AND PELVIS WITHOUT CONTRAST REASON FOR EXAM: Female, 84 years old. Vomiting, constipation x 1 week. Prior hernia x 3, hysterectomy, hypertension, skin cancer. RADIATION DOSAGE (If Supplied By Facility): CTDIvol = ( 19.94 ) mGy, DLP = ( 1034.15 ) mGycm TECHNIQUE: Transaxial images were obtained from the dome of the diaphragm to the symphysis pubis without oral contrast, and without intravenous contrast. Sagittal and coronal images were reconstructed. Individualized dose optimization techniques were used for this CT. COMPARISON: None. FINDINGS: Right hemidiaphragm is elevated with chronic atelectasis in the right lung base. Residual pacer wires inferior to the heart. Normal liver. Normal gallbladder and extrahepatic biliary system. Normal spleen. Normal pancreas. Normal bilateral adrenal glands. Normal right kidney. There is moderate cortical atrophy of the left kidney, consistent with chronic medical renal disease. There is a small hiatal hernia with adjacent surgical clips. No dilated loops of small bowel. There is a moderate-sized right femoral hernia with small bowel protruding into the hernia sac (image 75 series 601), unchanged since prior study. There are multiple colonic diverticula consistent with diverticulosis. There is non-visualization of the appendix. Normal abdominal aorta. Normal inferior vena cava. Normal retroperitoneum. Normal urinary bladder. There is absence of the uterus consistent with a prior hysterectomy. There is a small umbilical hernia containing fat. There are diffuse degenerative changes of the visualized lumbar spine. CT/Abdomen/Pelvis without Cont IMPRESSION: 1. No acute inflammatory process or bowel obstruction. 2. Right femoral hernia containing small bowel. 3. Additional stable chronic changes, as above. Electronically Signed: Mich Cantrell MD ([place]) at 18:37 EST , Service support ,
--- NOTE | 2020-01-04 17:50 | ED.DCSUM_ITS ---
History of Present Illness Chief Complaint: Constipation Narrative: This patient is an 84-year-old female who presents with constipation. She has not had a bowel movement in the last 3 to 4 days. She states she has tried prune juice apple juice and milk of magnesia without relief. She has no abdominal pain. She does note that she has felt a lump in her upper abdomen for the last couple of months. She did have nausea and vomiting when her symptoms initially began about 3 to 4 days ago but has had no vomiting since that time and denies any pain. Review of systems otherwise negative. No fevers cough chest pain difficulty breathing. She does have a history of prior hernia repairs as well as a small bowel obstruction associated with one of the hernia repairs that sounds like she may have had a incarcerated hernia with ischemic bowel. Past Medical History - Allergies and Home Meds Allergies/Adverse Reactions: Allergies No Known Allergies Allergy (Verified 01/04/20 17:21) Primary Care Physician: Pete Butler DO [Primary Care Provider] - Past Medical History: - - Aortic valve replacement, hypothyroidism, hypertension Surgical History: herniorrhaphy, - - Hiatal hernia repair, multiple inguinal hernia repairs and what sounds like a small bowel resection with a previous right inguinal hernia repair Smoking Status: Never smoker - Family History Paternal Family History: Family History (Last Reviewed 02/23/19 @ 14:48 by Letty De Leon) Mother Hypertension Father Hypertension Family History: Reports: Heart Disease Review of Systems All systems negative except as indicated General: Denies: Fever Eyes: Denies: Visual changes - bilaterally ENT: Denies: Bilateral ear pain Cardiovascular: Denies: Chest pain Respiratory: Denies: Dyspnea Gastrointestinal: Reports: Nausea, Vomiting, Constipation. Denies: Abdominal pain, Diarrhea Musculoskeletal: Denies: Myalgias, Arthralgias Skin: Denies: Rash Neurological: Denies: Headache Allergy: Denies: Uticaria Physical Exam Vital Signs/Narrative: Vital Signs Temp Pulse Resp BP Pulse Ox 01/04/20 17:22 97.2 F L 70 19 H 159/103 H 95 Inital Vital Signs reviewed: Yes General: Well nourished, Well developed, Obese Head: Normocephalic Eyes: EOMI ENT: Moist mucous membranes Neck: Supple Cardiovascular: Regular rate, Regular rhythm Respiratory: No distress, CTA bilaterally Abdomen: Soft, Nondistended, - - Patient has a palpable mass in the epigastric region, she does have some tenderness at the site without guarding without rebound Skin: Normal color Neurological: Alert Psychological: Normal affect Diagnostic/Tx/Re-eval Impressions Abdomen/Pelvis CT 01/04/20 17:48 IMPRESSION: 1. No acute inflammatory process or bowel obstruction. 2. Right femoral hernia containing small bowel. 3. Additional stable chronic changes, as above. Electronically Signed: Mich Cantrell MD ([place]) at 18:37 EST , Service support , 01/04/20 17:48 Abdomen/Pelvis without Cont [CT] Stat Laboratory Results 01/04/20 01/04/20 18:00 18:00 WBC 9.3 RBC 4.84 Hgb 14.5 Hct 45.8 MCV 94.6 MCH 30.0 MCHC 31.7 L RDW Std Deviation 51.7 H RDW Coeff of Fabricio 15.0 H Plt Count 222 MPV 12.4 H Immature Gran % (Auto) 0.500 Neut % (Auto) 68.7 Lymph % (Auto) 19.6 [place] % (Auto) 9.0 Eos % (Auto) 1.6 Baso % (Auto) 0.6 Absolute Neuts (auto) 6.4 Absolute Lymphs (auto) 1.82 Nucleated RBC % 0 Sodium 139 Potassium 4.8 Chloride 101 Carbon Dioxide 33.0 H Anion Gap 5 BUN 22 H Creatinine 1.41 H Estim Creat Clear Calc 22.41 Est GFR (MDRD) Af Amer 46 L Est GFR (MDRD) Non-Af 38 L BUN/Creatinine Ratio 15.6 Glucose 129 H Calcium 9.5 - Medical Decision Making Labs are unremarkable. CT shows no evidence of bowel obstruction or acute inf lammatory process. Patient is resting comfortably on reevaluation with no complaints. I reviewed her imaging. She really does not appear to have a high stool burden. She has no pain. I believe an enema would be beneficial. However I did advise her to start MiraLAX. She does understand return for new or worsening symptoms and was instructed on specific signs and symptoms to monitor for. She is agreeable with this plan. She will follow-up as an outpatient or return for new or worsening symptoms and was discharged home. ED Disposition - Plan for ED Patient: Disposition: Home or Assisted Living Diagnosis: Constipation Instructions: ED Constipation Referrals: Pete Butler DO [Primary Care Provider] -
[2020-01-04 18:21] LABS: Anion Gap 5 (5-15); BUN 22 mg/dL (7-18); BUN/Creat Ratio 15.6 RATIO (10-20); Calcium,Total 9.5 mg/dL (8.5-10.1); Chloride 101 mmol/L (98-107); Creatinine, Serum 1.41 mg/dL (0.55-1.02); EST Glomerular Filtration Rate 38 mL/min (>60); Est Glom Filt Rate - Afr Amer 46 mL/min (>60); Estimated Creatinine Clearance 22.41 ml/min; Glucose 129 mg/dL (74-106); Potassium 4.8 mmol/L (3.5-5.1); Sodium Level 139 mmol/L (136-145)
[2020-01-04 18:24] LABS: Absolute Lymphocyte Count 1.82 X10^3/uL (0.83-4.51); Absolute Neutrophil Count 6.4 X10^3/uL (2.0-7.7); Basophil# 0.06 X10^3/uL; Basophil% 0.6 % (0-1); Eosinophil# 0.15 X10^3/uL; Eosinophils% 1.6 % (0-5); Hematocrit 45.8 % (37-47); Hemoglobin 14.5 g/dL (12.0-15.0); Lymphocyte # 1.82 X10^3/ul (4.0); Lymphocyte % 19.6 % (19-41); Mean Corp Hgb Conc 31.7 g/dL (32-36); Mean Corpuscular Volume 94.6 fL (81-99); Mean Platelet Vol. 12.4 fl (6.2-12.0); Monocyte# 0.84 X10^3/uL; NRBC Flagged by Analyzer 0 % (0-5); Neutrophil # 6.37 X10^3/uL (2.7-7.7); Neutrophil % 68.7 % (47-70); Platelet Count 222 K/mm3 (150-450); RBC Distribution Width SD 51.7 fl (35.1-43.9); Red Blood Count 4.84 M/mm3 (4.2-5.4); White Blood Count 9.3 K/mm3 (4.4-11.0)
[2020-01-04 19:45] VITALS: RESP 18
== END 2020-01-04 19:46 | disposition home or self-care (01) ==
PROVIDERS: Emergency Provider Emergency Medicine; PCP Preventive Medicine Occupational Medicine
DX: K59.00 Constipation, unspecified (principal); E66.9 Obesity, unspecified; E03.9 Hypothyroidism, unspecified; I10 Essential (primary) hypertension; Z79.82 Long term (current) use of aspirin; Z79.899 Other long term (current) drug therapy; Z95.2 Presence of prosthetic heart valve
CPT/HCPCS: 74176; 80048; 85025; 99283; A4216

== ENCOUNTER 2020-05-27 20:31 | Emergency (ER) | payer MEDICARE, OTHER, SELFPAY ==
[2020-05-27 20:32] VITALS: BP 152/77; PULSE 72; RESP 19; TEMP 36.2; O2SAT 97; BMI 37.8
--- NOTE | 2020-05-27 20:58 | EKG12_ITS ---
Test Reason : SOB Blood Pressure : / mmHG Vent. Rate : 065 BPM Atrial Rate : 065 BPM P-R Int : 144 ms QRS Dur : 124 ms QT Int : 462 ms P-R-T Axes : 068 017 124 degrees QTc Int : 480 ms Normal sinus rhythm Left bundle branch block Abnormal ECG Confirmed by ZOHRA SERVIN, NOREEN ([id number]), film or videotape editor ERIN AYALA ([id number]) on 05/29/2020 10:12:41 AM Referred By: SHARAD Confirmed By:NOREEN العلي MD
[2020-05-27 21:24] LABS: Absolute Lymphocyte Count 1.38 X10^3/uL (0.83-4.51); Absolute Neutrophil Count 9.9 X10^3/uL (2.0-7.7); Basophil# 0.06 X10^3/uL; Basophil% 0.5 % (0-1); Eosinophil# 0.16 X10^3/uL; Eosinophils% 1.3 % (0-5); Hematocrit 44.1 % (37-47); Hemoglobin 13.8 g/dL (12.0-15.0); Lymphocyte # 1.38 X10^3/ul (0.83-4.51); Mean Corp Hgb Conc 31.3 g/dL (32-36); Mean Corpuscular Hgb 30.1 pg (27.0-32.0); Mean Corpuscular Volume 96.1 fL (81-99); Mean Platelet Vol. 11.8 fl (6.2-12.0); Monocyte# 1.03 X10^3/uL; Monocyte% 8.2 % (0-10); NRBC Flagged by Analyzer 0 % (0-5); Neutrophil # 9.87 X10^3/uL (2.7-7.7); Neutrophil % 78.4 % (47-70); Platelet Count 219 K/mm3 (150-450); RBC Distribution Width SD 52.7 fl (35.1-43.9); Red Blood Count 4.59 M/mm3 (4.2-5.4); White Blood Count 12.6 K/mm3 (4.4-11.0)
[2020-05-27 21:49] LABS: BNP,B-Type NATRIURETIC PEPTIDE 102.7 pg/mL (0-100)
[2020-05-27 21:50] LABS: AST(SGOT) 15 U/L (15-37); Alanine Aminotransfer ALT/SGPT 21 U/L (13-56); Albumin, Serum 3.7 g/dL (3.2-5.0); Alkaline Phosphatase 97 U/L (45-117); Anion Gap 8 (5-15); BUN 29 mg/dL (7-18); BUN/Creat Ratio 18.5 RATIO (10-20); Chloride 105 mmol/L (98-107); Creatinine, Serum 1.57 mg/dL (0.55-1.02); EST Glomerular Filtration Rate 33 mL/min (>60); Est Glom Filt Rate - Afr Amer 40 mL/min (>60); Estimated Creatinine Clearance 20.13 ml/min; Globulin 3.7 g/dL (2.2-4.2); Glucose 146 mg/dL (74-106); Potassium 4.2 mmol/L (3.5-5.1); Protein, Total 7.4 g/dL (6.4-8.2); Sodium Level 140 mmol/L (136-145)
[2020-05-27] MEDS: Morphine 4 MG/ML Syringe IV (21:50)
--- NOTE | 2020-05-27 21:53 | RAD_ITS ---
INDICATION: sob EXAMINATION/TECHNIQUE: X-RAY - XR Chest 1 View COMPARISON: 02/07/2018. FINDINGS: The lungs are clear. Median sternotomy wires present. The heart is borderline enlarged. Persistent elevation of the right hemidiaphragm with colonic interposition. No pleural effusion or pneumothorax. No acute osseous abnormalities. RAD/Chest 1 View (Portable) IMPRESSION: No acute radiographic abnormalities. Borderline cardiomegaly. Persistent elevation of the right hemidiaphragm with colonic interposition. Electronically Signed: Aquilino Roberson MD at 22:34 EDT Tel , Service support ,
--- NOTE | 2020-05-27 22:40 | ED.VIS.GEN ---
History of Present Illness Chief Complaint: General Illness Informant: Patient Onset: Today Context: Gradual Onset Timing: Continuous Current Severity: Mild Maximum Severity: Moderate Narrative: Patient is an 84-year-old female with medical history significant for aortic valve replacement, CHF, obesity, and hypertension who presents to the emergency department with abdominal cramping, diarrhea, and leg cramping. Patient states from time to time, she will get intermittent diarrhea. She states that she had 3 episodes today. Since then, she states that she is had cramping in bilateral lower extremities. She states she also felt mildly short of breath. She denies any chest pain. She denies any fevers or chills. She states that the abdominal pain is since resolved. She does have a known fatty tumor/lipoma of the upper abdomen. She also has hernia mesh that has been giving her problems for some time. Prior similar symptoms: Yes Recent Illness/Hospitalization: No Past Medical History - Allergies and Home Meds Allergies/Adverse Reactions: Allergies No Known Allergies Allergy (Verified 05/27/20 20:35) Primary Care Physician: Pete Butler DO [Primary Care Provider] - Prior records reviewed: Yes Past Medical History: - - Coronary vascular disease, hypertension, CHF, COPD Surgical History: herniorrhaphy, - - Hiatal hernia repair, multiple inguinal hernia repairs and what sounds like a small bowel resection with a previous right inguinal hernia repair Smoking Status: Never smoker - Family History Paternal Family History: Family History (Last Reviewed 02/23/19 @ 14:48 by Letty De Leon) Mother Hypertension Father Hypertension Family History: Reports: Heart Disease Review of Systems General: Denies: Chills, Fever, Sweats Eyes: Denies: Visual changes - bilaterally, Diplopia ENT: Denies: Rhinorrhea, Sore throat Cardiovascular: Denies: Chest pain, Palpitations Respiratory: Reports: Dyspnea. Denies: Cough, Dyspnea on exertion Gastrointestinal: Reports: Nausea, Diarrhea. Denies: Abdominal pain, Vomiting, Melena, Hematochezia Genitourinary: Denies: Dysuria, Hematuria, Frequency Musculoskeletal: Reports: Myalgias. Denies: Back pain, Extremity Pain Skin: Denies: Rash, Wounds Neurological: Denies: Headache, Weakness, Numbness Physical Exam Vital Signs/Narrative: Vital Signs Temp Pulse Resp BP Pulse Ox 05/27/20 20:32 97.2 F L 72 19 H 152/77 H 97 Inital Vital Signs reviewed: Yes General: Well nourished, Well developed, No Acute Distress Head: Normocephalic, Atraumatic Eyes: Perrl, EOMI ENT: Moist mucous membranes, No rhinorrhea Neck: Supple, Nontender Cardiovascular: Regular rate, Regular rhythm, Murmur Respiratory: No distress, CTA bilaterally, Chest nontender Abdomen: Soft, Nontender, Nondistended, Normal bowel sounds Back: Nontender, Normal Inspection Extremities: Tenderness - 2+ symmetric lower extremity pulses. Mild tenderness palpation over the muscle groups without spasm., Edema Skin: Normal color, No rash Neurological: Alert, Oriented x3, Cranial nerves II-XII grossly intact, Normal Strength, Normal Sensation Psychological: Normal affect, Normal Mood Diagnostic/Tx/Re-eval Chest X-Ray - ED: 1 View, Normal, Lungs, Mediastinum, Bony Structures, Cardiomegaly Clinical Impression(s) from Imaging Studies Chest X-Ray 05/27/20 21:53 IMPRESSION: No acute radiographic abnormalities. Borderline cardiomegaly. Persistent elevation of the right hemidiaphragm with colonic interposition. Electronically Signed: Aquilino Roberson MD at 22:34 EDT Tel , Service support , Abnormal Lab Results 05/27/20 05/27/20 05/27/20 21:16 21:16 21:16 WBC 12.6 H RBC 4.59 Hgb 13.8 Hct 44.1 MCV 96.1 MCH 30.1 MCHC 31.3 L RDW Std Deviation 52.7 H RDW Coeff of Fabricio 15.0 H Plt Count 219 MPV 11.8 Immature Gran % (Auto) 0.600 Neut % (Auto) 78.4 H Lymph % (Auto) 11.0 L [place] % (Auto) 8.2 Eos % (Auto) 1.3 Baso % (Auto) 0.5 Absolute Neuts (auto) 9.9 H Absolute Lymphs (auto) 1.38 Nucleated RBC % 0 Sodium 140 Potassium 4.2 Chloride 105 Carbon Dioxide 27.0 Anion Gap 8 BUN 29 H Creatinine 1.57 H Estim Creat Clear Calc 20.13 Est GFR (MDRD) Af Amer 40 L Est GFR (MDRD) Non-Af 33 L BUN/Creatinine Ratio 18.5 Glucose 146 H Calcium 9.0 Magnesium 2.0 Total Bilirubin 0.30 AST 15 ALT 21 Alkaline Phosphatase 97 Troponin I < 0.015 B-Natriuretic Peptide 102.7 H Total Protein 7.4 Albumin 3.7 Globulin 3.7 Albumin/Globulin Ratio 1.0 - Rhythm Strip Rhythm Strip: Sinus Rhythm Rate: 80 Ectopy: None - EKG Initial EKG Interpretation: Sinus Rhythm, No Acute Injury Pattern Prior: Unchanged - Medical Decision Making Patient presents with shortness of breath and leg cramping. Her shortness of breath is since resolved. She is concerned she might be hypokalemic. She is on spironolactone and Lasix but does not take potassium replacement. EKG was obtained which was sinus rhythm not acute ischemia. Patient is not hypoxic or tachypneic. Screening labs were obtained. She is a mild leukocytosis which I feel is likely reactive. She has no infectious symptoms. She has not had fever. She has not had chills. Chest x-ray reviewed by myself and the radiologist shows mild cardiomegaly but no evidence of volume overload. Patient was given morphine for leg cramps and have totally resolved. She is not hypokalemic. Her labs are at her baseline. At this point, I do not suspect a dangerous process. I do feel this is likely related to her mild dehydration. Patient was given a 500 cc bolus. She is feeling improved. She will be discharged home. Impression 1. Mild dehydration 2. Leg cramps ED Disposition - Plan for ED Patient: Instructions: ED Dehydration (Adult) Referrals: Pete Butler DO [Primary Care Provider] -
[2020-05-27 22:56] VITALS: BP 136/64; PULSE 69; RESP 24; O2SAT 93
[2020-05-27 23:31] VITALS: BP 115/63; PULSE 61; RESP 16; O2SAT 95
== END 2020-05-27 23:46 | disposition home or self-care (01) ==
LOC: ED 21:33
PROVIDERS: Emergency Provider Emergency Medicine; PCP Preventive Medicine Occupational Medicine
DX: E86.0 Dehydration (principal); R25.2 Cramp and spasm; R10.9 Unspecified abdominal pain; R19.7 Diarrhea, unspecified; E66.9 Obesity, unspecified; I11.0 Hypertensive heart disease with heart failure; I50.9 Heart failure, unspecified; J44.9 Chronic obstructive pulmonary disease, unspecified; Z95.2 Presence of prosthetic heart valve; Z79.899 Other long term (current) drug therapy; Z79.82 Long term (current) use of aspirin
CPT/HCPCS: 71045; 80053; 83735; 83880; 84484; 85025; 93005; 96374; 99284; J7040; A4216

== ENCOUNTER 2020-06-25 13:32 | Inpatient (IN) | payer MEDICARE, OTHER, SELFPAY ==
[2020-06-25 13:33] VITALS: BP 153/92; PULSE 68; RESP 15; TEMP 35.8; O2SAT 96; BMI 41.0
--- NOTE | 2020-06-25 13:56 | RAD_ITS ---
STUDY: X-RAY CHEST REASON FOR EXAM: Female, 84 years old. Chest pain TECHNIQUE: Single AP portable view of the chest. COMPARISON: 05/27/2020 FINDINGS: Stable elevation of the right hemidiaphragm There are interstitial changes of the lungs. There is no demonstrated pleural abnormality. Sternal cerclage wires and vascular clips are present from a prior sternotomy and coronary artery bypass graft procedure (CABG). Normal mediastinum and sebastián. Normal visualized pulmonary arteries. Normal visualized aortic arch and descending thoracic aorta. There are diffuse degenerative changes of the visualized thoracic spine. There is degenerative osteoarthritis of the bilateral shoulders. There is no demonstrated abnormality of the visualized soft tissue structures of the upper abdomen. RAD/Chest 1 View (Portable) IMPRESSION: Chronic interstitial changes, no superimposed acute pulmonary process Electronically Signed: Brad Day MD at 14:17 EDT , Service support ,
--- NOTE | 2020-06-25 13:56 | EKG12_ITS ---
Test Reason : N/V Blood Pressure : / mmHG Vent. Rate : 066 BPM Atrial Rate : 066 BPM P-R Int : 154 ms QRS Dur : 128 ms QT Int : 448 ms P-R-T Axes : 068 -43 121 degrees QTc Int : 469 ms Normal sinus rhythm Left axis deviation Non-specific intra-ventricular conduction block Cannot rule out Septal infarct , age undetermined Possible Lateral infarct , age undetermined Inferior infarct , age undetermined Abnormal ECG Confirmed by WENDY SERVIN, CHRIS ([id number]), news assignment editor YOANNA WOODS ([id number]) on 06/28/2020 11:30:18 A M Referred By: CORBIN Confirmed By:CRESCENCIO NGUYEN MD
--- NOTE | 2020-06-25 13:57 | EX.ED.DYSGE1 ---
HPI History of Present Illness Chief Complaint: Nausea/Vomiting Narrative Narrative: 84-year-old female presents with concern for nausea and vomiting. States it began this morning. States that this morning she had a burning in the right side of her throat. States that since that time she has been unable to swallow keep any liquids or solids down. States that they will stay down for 10 to 15 minutes but then she will vomit them back up. Tried a popsicle before she left and threw it up after approximately 15 to 20 minutes. Denies any chest pain, shortness of breath, cough, fever, chills, urinary symptoms. [facility] Medical History Abnormal EKG Acute respiratory failure with hypoxemia Anemia Aortic insufficiency Aortic stenosis Arthritis Body mass index (BMI) 35 or more CAD (coronary artery disease) Cardiomyopathy COPD (chronic obstructive pulmonary disease) COPD exacerbation Demand ischemia Dyspnea on exertion Gout HAP (hospital-acquired pneumonia) HCAP (healthcare-associated pneumonia) Hiatal hernia with gastroesophageal reflux Hypertension Hypothyroid Hypothyroidism Hypoxemia Nonrheumatic mitral (valve) insufficiency Obesity Psoriasis Pulmonary edema Secondary pulmonary arterial hypertension Sepsis Severe sepsis Skin cancer Vertigo Home Medications allopurinol 300 mg tablet 150 mg PO DAILY 02/15/17 [History Last Taken 06/24/20] aspirin 81 mg tablet,delayed release 81 mg PO DAILY 02/15/17 [History Last Taken 06/24/20] omeprazole 40 mg capsule,delayed release 40 mg PO DAILY 30 Days #30 cap 12/15/17 [History Last Taken 06/25/20] amlodipine 5 mg tablet 5 mg PO DAILY 01/25/18 [History Last Taken 06/24/20] albuterol sulfate 2.5 mg INHALATION Q6H PRN PRN 02/07/18 [History Last Taken 06/24/20] levothyroxine 125 mcg tablet 125 mcg PO DAILY 05/05/18 [History Last Taken 06/25/20] furosemide 40 mg tablet 40 mg PO DAILY #90 tab 06/14/19 [Rx Last Taken 06/24/20] spironolactone 25 mg tablet 25 mg PO DAILY #90 tab 12/14/19 [Rx Last Taken 06/24/20] calcium carbonate-vitamin D3 1 ea PO DAILY 01/04/20 [History Last Taken 06/24/20] magnesium 250 mg PO QODAY 01/04/20 [History Last Taken 06/24/20] metoprolol tartrate 12.5 mg PO DAILY 01/04/20 [History Last Taken 06/24/20] acetaminophen [Tylenol Extra Strength] 500 - 1,000 mg PO DAILY PRN 06/25/20 [History Last Taken 06/23/20] multivitamin 1 tab PO DAILY 06/25/20 [History Last Taken 06/24/20] Allergy/AdvReac Type Severity Reaction Status Date / Time No Known Allergies Allergy Verified 06/25/20 13:35 Family History Mother Hypertension Father Hypertension Surgical History History of aortic valve replacement (06/15/17) History of bladder suspension procedure History of hysterectomy History of incisional hernia repair History of left heart catheterization (~2011) History of Ronen fundoplication (~10/21/16) History of repair of hiatal hernia (~10/21/16) Social History Smoking Status: Never smoker alcohol intake: never caffeine: Yes Type: coffee Number of servings: 1 ROS ROS ED Constitutional Constitutional ED: Denies chills, fever(s) or sweats Eyes Eyes: Denies blurry vision, change in vision or diplopia ENT ENT ED: Reports sore throat; Denies rhinorrhea Cardiovascular Cardiovascular: Denies chest pain, orthopnea, palpitations or racing heartbeat Respiratory/Chest Respiratory/Chest: Denies cough, dyspnea, dyspnea on exertion, orthopnea or sputum Gastrointestinal Gastrointestinal: Reports nausea and vomiting; Denies abdominal pain, constipation, diarrhea or melena Genitourinary Genitourinary ED: Denies dysuria, hematuria or urinary frequency Musculoskeletal Musculoskeletal: Denies arthralgias, myalgias or neck pain Integumentary Denies rash Neurologic Neurologic: Denies headache(s), paresthesias or weakness Psychiatric Psychiatric: Denies anxiety or depression Hematologic/Lymphatic Hematologic/Lymphatic: Denies easy bleeding or easy bruising Allergic/Immunologic Allergic/Immunologic ED: Denies mouth swelling or tongue swelling EXAM Physical Exam Const Vital Signs: 06/25/20 13:33 06/25/20 16:05 06/25/20 17:18 Temperature 96.5 F L 97.3 F L Temperature Source Temporal Oral Pulse Rate 68 73 Respiratory Rate 15 18 16 Blood Pressure 153/92 H 140/77 H Blood Pressure Mean 112 98 Pulse Ox 96 95 Oxygen Delivery Method Room Air Room Air Positive well nourished and well developed General Appearance ED: well developed HEENT Reports TM's clear and moist mucous membranes normocephalic and atraumatic Tympanic Membrane ED: Yes TM's clear Eyes PERRL and EOMs intact bilaterally Neck no lymphadenopathy, supple and no JVD Chest Wall inspection of chest normal Resp normal respiratory effort and clear to auscultation bilaterally Cardio regular rate, S1 normal heart sound, S2 normal heart sound and no murmurs Peripheral Pulses: pulses 2+ throughout GI soft to palpation, non-tender and non-distended Narrative: Rectal exam shows brown stool without evidence of external or internal hemorrhoids. Back/Spine no CVA tenderness and no thoracic nor lumbar tenderness Extremity normal to inspection General Extremety ED: Negative for edema or tenderness General Extremity: Negative for edema Neuro oriented x3, CN's II-XII intact bilaterally and no sensory deficits noted Sensorium / Orientation: alert Motor Exam: strength 5/5 throughout Psych mental status grossly normal Skin no rashes or lesions noted MDM MDM MDM Narrative Medical decision making narrative: Patient appears well nontoxic. Vital signs within normal limits. Patient has evidence of vomiting within the room which the nurse described as coffee-ground emesis. Hemoglobin within normal limits with a slightly elevated leukocytosis. CT of the abdomen pelvis was done which shows no acute process other than hiatal hernia as well as a nonobstructive femoral hernia. Patient states she is aware of these issues. Chest x-ray shows no evidence of infiltrate or cardiomegaly. Interpreted by myself. Radiology concurs. Rectal exam was done at the bedside which shows a occult blood brown stool. Patient was given Protonix. Spoke with general surgeon on-call Dr. Sotomayor, who is agreeable with seeing the patient in the hospital and possibly performing colonoscopy versus endoscopy as an inpatient or outpatient. Patient is only on aspirin and no anticoagulation otherwise. Spoke with hospitalist who is agreeable with admission. Patient admitted in stable condition. Lab Data Attestation: I reviewed the patient's lab results. Labs: Laboratory Results - last 24 hr 06/25/20 06/25/20 06/25/20 13:58 14:32 14:32 WBC 13.2 H RBC 4.77 Hgb 14.3 Hct 45.7 MCV 95.8 MCH 30.0 MCHC 31.3 L RDW Std Deviation 51.3 H RDW Coeff of Fabricio 14.8 H Plt Count 209 MPV 12.0 Immature Gran % (Auto) 0.500 Neut % (Auto) 84.2 H Lymph % (Auto) 8.6 L [place] % (Auto) 6.2 Eos % (Auto) 0.2 Baso % (Auto) 0.3 Absolute Neuts (auto) 11.1 H Absolute Lymphs (auto) 1.13 Nucleated RBC % 0 PT INR APTT Sodium 138 Potassium 4.2 Chloride 104 Carbon Dioxide 31.0 Anion Gap 3 L BUN 20 H Creatinine 1.17 H Estim Creat Clear Calc 27.01 Est GFR (MDRD) Af Amer 57 L Est GFR (MDRD) Non-Af 47 L BUN/Creatinine Ratio 17.1 Glucose 127 H Calcium 9.5 Total Bilirubin 0.40 AST 17 ALT 19 Alkaline Phosphatase 102 Troponin I < 0.015 Total Protein 7.6 Albumin 3.8 Globulin 3.8 Albumin/Globulin Ratio 1.0 Lipase 46 L Urine Color Yellow Urine Clarity Clear Urine pH 6.5 Ur Specific [place] 1.010 Urine Protein 30 H Urine Glucose (UA) Normal Urine Ketones Negative Urine Occult Blood Negative Urine Nitrite Negative Urine Bilirubin Negative Urine Urobilinogen Normal Ur Leukocyte Esterase 100 H Urine RBC 0 SEEN Urine WBC 0-5 SEEN Ur Squamous Epith Cells 0-5 SEEN Urine Bacteria 0 SEEN Urine Mucus 0 SEEN 06/25/20 14:32 WBC RBC Hgb Hct MCV MCH MCHC RDW Std Deviation RDW Coeff of Fabricio Plt Count MPV Immature Gran % (Auto) Neut % (Auto) Lymph % (Auto) [place] % (Auto) Eos % (Auto) Baso % (Auto) Absolute Neuts (auto) Absolute Lymphs (auto) Nucleated RBC % PT 12.8 INR 1.0 APTT 28.6 Sodium Potassium Chloride Carbon Dioxide Anion Gap BUN Creatinine Estim Creat Clear Calc Est GFR (MDRD) Af Amer Est GFR (MDRD) Non-Af BUN/Creatinine Ratio Glucose Calcium Total Bilirubin AST ALT Alkaline Phosphatase Troponin I Total Protein Albumin Globulin Albumin/Globulin Ratio Lipase Urine Color Urine Clarity Urine pH Ur Specific [place] Urine Protein Urine Glucose (UA) Urine Ketones Urine Occult Blood Urine Nitrite Urine Bilirubin Urine Urobilinogen Ur Leukocyte Esterase Urine RBC Urine WBC Ur Squamous Epith Cells Urine Bacteria Urine Mucus Radiography Chest X-Ray - ED: 1 View, Read by ED Physician, Read by Radiologist and Normal Diagnostic Testing: Radiology Impression Chest X-Ray 06/25/20 13:56 IMPRESSION: Chronic interstitial changes, no superimposed acute pulmonary process Electronically Signed: Brad Day MD at 14:17 EDT , Service support , Abdomen/Pelvis CT 06/25/20 14:41 IMPRESSION: 1. No bowel obstruction or acute inflammatory process. 2. Right femoral hernia without bowel obstruction. 3. Stable chronic changes, as above. Electronically Signed: Mich Cantrell MD ([place]) at 15:37 EDT , Service support , Rhythm Strip Rhythm Strip: Sinus Rhythm Rate: 66 Ectopy: None EKG Initial EKG: Attestation: I personally reviewed and interpreted this EKG as follows: Interpretation: Sinus Rhythm and No Acute Injury Pattern Comments: Left axis deviation. Interventricular conduction delay. Nonspecific ST changes. Discharge Plan Dx/Rx/DC Orders Clinical Impression: GI bleed, Nausea and vomiting Disposition Disposition: Acute Care Hospital [facility] Discharge Date/Time: 06/25/20 21:04
[2020-06-25] MEDS: Ondansetron 4 MG/2 ML Vial IV ×2 (14:30→21:03)
[2020-06-25 14:40] LABS: Absolute Lymphocyte Count 1.13 X10^3/uL (0.83-4.51); Absolute Neutrophil Count 11.1 X10^3/uL (2.0-7.7); Basophil# 0.04 X10^3/uL; Basophil% 0.3 % (0-1); Eosinophil# 0.03 X10^3/uL; Eosinophils% 0.2 % (0-5); Hematocrit 45.7 % (37-47); Hemoglobin 14.3 g/dL (12.0-15.0); Lymphocyte # 1.13 X10^3/ul (0.83-4.51); Lymphocyte % 8.6 % (19-41); Mean Corp Hgb Conc 31.3 g/dL (32-36); Mean Corpuscular Volume 95.8 fL (81-99); Monocyte# 0.81 X10^3/uL; Monocyte% 6.2 % (0-10); NRBC Flagged by Analyzer 0 % (0-5); Neutrophil # 11.09 X10^3/uL (2.7-7.7); Neutrophil % 84.2 % (47-70); Platelet Count 209 K/mm3 (150-450); RBC Distribution Width CV 14.8 % (11.6-14.6); RBC Distribution Width SD 51.3 fl (35.1-43.9); Red Blood Count 4.77 M/mm3 (4.2-5.4); White Blood Count 13.2 K/mm3 (4.4-11.0)
--- NOTE | 2020-06-25 14:41 | CT_ITS ---
STUDY: CT ABDOMEN AND PELVIS WITH CONTRAST REASON FOR EXAM: Female, 84 years old. vomiting RADIATION DOSAGE (If Supplied By Facility): CTDIvol = ( 17.04 ) mGy, DLP = ( 1212.85 ) mGycm TECHNIQUE: Transaxial images were obtained from the dome of the diaphragm to the symphysis pubis without oral contrast. IV 100mL [id number]-[id number] was administered. Sagittal and coronal images were reconstructed. Individualized dose optimization techniques were used for this CT. COMPARISON: 01/04/2020 FINDINGS: Right hemidiaphragm is elevated. There is colonic interposition between diaphragm and liver. Sternotomy wires. Residual pacer wires noted. Normal liver. Normal gallbladder and extrahepatic biliary system. Normal spleen. Normal pancreas. Normal bilateral adrenal glands. Normal right kidney. There is severe cortical atrophy of the left kidney, consistent with chronic medical renal disease. Small hiatal hernia. There are surgical clips of the upper abdomen in the region of GE junction. Right femoral hernia is redemonstrated, although no dilated loops of small bowel. There are multiple colonic diverticula consistent with diverticulosis. There is non-visualization of the appendix. There is diffuse atherosclerotic calcification of the abdominal aorta, without a demonstrated aneurysm. Normal inferior vena cava. Normal retroperitoneum. Normal urinary bladder. There is a small umbilical hernia containing fat. There are diffuse degenerative changes of the visualized lumbar spine. CT/Abdomen/Pelvis W IV Cont ONLY IMPRESSION: 1. No bowel obstruction or acute inflammatory process. 2. Right femoral hernia without bowel obstruction. 3. Stable chronic changes, as above. Electronically Signed: Mich Cantrell MD ([place]) at 15:37 EDT , Service support ,
[2020-06-25 15:01] LABS: AST(SGOT) 17 U/L (15-37); Alanine Aminotransfer ALT/SGPT 19 U/L (13-56); Albumin, Serum 3.8 g/dL (3.2-5.0); Alkaline Phosphatase 102 U/L (45-117); Anion Gap 3 (5-15); BUN 20 mg/dL (7-18); BUN/Creat Ratio 17.1 RATIO (10-20); Calcium,Total 9.5 mg/dL (8.5-10.1); Chloride 104 mmol/L (98-107); Creatinine, Serum 1.17 mg/dL (0.55-1.02); EST Glomerular Filtration Rate 47 mL/min (>60); Est Glom Filt Rate - Afr Amer 57 mL/min (>60); Estimated Creatinine Clearance 27.01 ml/min; Globulin 3.8 g/dL (2.2-4.2); Glucose 127 mg/dL (74-106); Lipase 46 U/L (73-393); Potassium 4.2 mmol/L (3.5-5.1); Protein, Total 7.6 g/dL (6.4-8.2); Prothrombin Time (Protime)PT. 12.8 SECONDS (11.7-14.9); Sodium Level 138 mmol/L (136-145)
[2020-06-25 15:02] LABS: Partial Thromboplast Time 28.6 Seconds (24.1-36.2)
[2020-06-25 16:05] VITALS: RESP 18
[2020-06-25 16:08] LABS: Bacteria 0 SEEN /hpf (None Seen); Mucous, Urine 0 SEEN /hpf (<or=2+); Red Blood Cells-Urine 0 SEEN /hpf (0-5)
[2020-06-25 16:23] LABS: Color, Urine Yellow (Yellow); Glucose, Dipstick Normal (Normal); Ketone-Dipstick Negative (Negative); Leukocyte Esterase-Dipstick 100 /ul (Negative); Nitrite-Dipstick Negative (Negative); Occult Blood-Urine Negative /ul (Negative); Protein-Dipstick 30 mg/dl (Negative); Urine Bilirubin Dipstick Negative (Negative); Urine Clarity Clear (Clear); Urine Urobilinogen Normal (Normal); Urine pH 6.5 (5.0 - 8.0)
[2020-06-25 16:35] LABS: Squamous Epithelial Cells - UA 0-5 SEEN /hpf (5-10); White Blood Cells 0-5 SEEN /hpf (0-5)
[2020-06-25 17:18] VITALS: BP 140/77; PULSE 73; RESP 16; TEMP 36.3; O2SAT 95
--- NOTE | 2020-06-25 17:45 | HP.PCM_ITS ---
Documented by User: Brianne Baker NP-C 06/25/20 18:04 HPI - General HPI Narrative GONZALO WELCH, is a 84 F who presents today with nausea and vomiting. Patient states that the vomiting began at 5 PM yesterday evening. Patient noted that today when she was vomiting she noted that there was blood in her vomit. Patient reports a burning feeling all the way up through her throat. Patient denies any changes to diet or medications. Patient denies fever, chills, shortness of breath, chest pain, cough, abdominal pain, diarrhea, constipation. [facility] Medical History Abnormal EKG Acute respiratory failure with hypoxemia Anemia Aortic insufficiency Aortic stenosis Arthritis Body mass index (BMI) 35 or more CAD (coronary artery disease) Cardiomyopathy COPD (chronic obstructive pulmonary disease) COPD exacerbation Demand ischemia Dyspnea on exertion Gout HAP (hospital-acquired pneumonia) HCAP (healthcare-associated pneumonia) Hiatal hernia with gastroesophageal reflux Hypertension Hypothyroid Hypothyroidism Hypoxemia Nonrheumatic mitral (valve) insufficiency Obesity Psoriasis Pulmonary edema Secondary pulmonary arterial hypertension Sepsis Severe sepsis Skin cancer Vertigo Home Medications allopurinol 300 mg tablet 150 mg PO DAILY 02/15/17 [History Last Taken 06/24/20] aspirin 81 mg tablet,delayed release 81 mg PO DAILY 02/15/17 [History Last Taken 06/24/20] omeprazole 40 mg capsule,delayed release 40 mg PO DAILY 30 Days #30 cap 12/15/17 [History Last Taken 06/25/20] amlodipine 5 mg tablet 5 mg PO DAILY 01/25/18 [History Last Taken 06/24/20] albuterol sulfate 2.5 mg INHALATION Q6H PRN PRN 02/07/18 [History Last Taken 06/24/20] levothyroxine 125 mcg tablet 125 mcg PO DAILY 05/05/18 [History Last Taken 06/25/20] furosemide 40 mg tablet 40 mg PO DAILY #90 tab 06/14/19 [Rx Last Taken 06/24/20] spironolactone 25 mg tablet 25 mg PO DAILY #90 tab 12/14/19 [Rx Last Taken 06/24/20] calcium carbonate-vitamin D3 1 ea PO DAILY 01/04/20 [History Last Taken 06/24/20] magnesium 250 mg PO QODAY 01/04/20 [History Last Taken 06/24/20] metoprolol tartrate 12.5 mg PO DAILY 01/04/20 [History Last Taken 06/24/20] acetaminophen [Tylenol Extra Strength] 500 - 1,000 mg PO DAILY PRN 06/25/20 [History Last Taken 06/23/20] multivitamin 1 tab PO DAILY 06/25/20 [History Last Taken 06/24/20] Allergy/AdvReac Type Severity Reaction Status Date / Time No Known Allergies Allergy Verified 06/25/20 13:35 Family History Mother Hypertension Father Hypertension Surgical History History of aortic valve replacement (06/15/17) History of bladder suspension procedure History of hysterectomy History of incisional hernia repair History of left heart catheterization (~2011) History of Ronen fundoplication (~10/21/16) History of repair of hiatal hernia (~10/21/16) Social History Smoking Status: Never smoker alcohol intake: never caffeine: Yes Type: coffee Number of servings: 1 ROS Constitutional Constitutional: Denies anorexia, chills, fatigue or weakness Cardiovascular Cardiovascular: Denies chest pain, edema or palpitations Respiratory/Chest Respiratory/Chest: Denies cough, shortness of breath at rest or shortness of breath with exertion Gastrointestinal Gastrointestinal: Reports heartburn, hematemesis, nausea, vomiting and other Details: Patient also reports a pressure prior to vomiting. ; Denies abdominal pain Genitourinary Genitourinary: Denies dysuria or hematuria Musculoskeletal Musculoskeletal: Denies back pain, extremity pain or joint pain Integumentary Integumentary: Reports dry skin and pruritus Neurologic Neurologic: Denies abnormal gait, abnormal speech, confusion or dizziness Psychiatric Psychiatric: Denies anxiety or depression Endocrine Endocrinology: Denies change in body appearance Vital Signs Vital Signs Vital Signs: 06/25/20 13:33 06/25/20 16:05 06/25/20 17:18 Temperature 96.5 F L 97.3 F L Temperature Source Temporal Oral Pulse Rate 68 73 Respiratory Rate 15 18 16 Blood Pressure 153/92 H 140/77 H Blood Pressure Mean 112 98 Pulse Ox 96 95 Oxygen Delivery Method Room Air Room Air Physical Exam Const alert and oriented x3 General Appearance: cooperative HEENT normocephalic and head/scalp atraumatic Eyes PERRL Neck no lymphadenopathy, supple, no JVD and thyroid normal General: trachea midline Resp normal respiratory effort, normal air movement and clear to auscultation bilaterally Cardio regular rate, regular rhythm, S1 normal heart sound and S2 normal heart sound GI normal to inspection, nondistended, normoactive bowel sounds, soft to palpation and non-tender Extremity normal capillary refill and no clubbing, cyanosis or edema General Extremity: no tenderness to palpation of joints or extremities Skin General Skin Exam: turgor normal Rashes: rashes noted Patient has psoriasis to bilateral legs Neuro CN's II-XII intact bilaterally Psych thought process normal, cooperative and affect normal Appearance: appropriate Lab / Micro Data Result Diagrams: 06/25/20 14:32 06/25/20 14:32 Labs: Laboratory Results - last 24 hr 06/25/20 06/25/20 06/25/20 13:58 14:32 14:32 WBC 13.2 H RBC 4.77 Hgb 14.3 Hct 45.7 MCV 95.8 MCH 30.0 MCHC 31.3 L RDW Std Deviation 51.3 H RDW Coeff of Fabricio 14.8 H Plt Count 209 MPV 12.0 Immature Gran % (Auto) 0.500 Neut % (Auto) 84.2 H Lymph % (Auto) 8.6 L [place] % (Auto) 6.2 Eos % (Auto) 0.2 Baso % (Auto) 0.3 Absolute Neuts (auto) 11.1 H Absolute Lymphs (auto) 1.13 Nucleated RBC % 0 PT INR APTT Sodium 138 Potassium 4.2 Chloride 104 Carbon Dioxide 31.0 Anion Gap 3 L BUN 20 H Creatinine 1.17 H Estim Creat Clear Calc 27.01 Est GFR (MDRD) Af Amer 57 L Est GFR (MDRD) Non-Af 47 L BUN/Creatinine Ratio 17.1 Glucose 127 H Calcium 9.5 Total Bilirubin 0.40 AST 17 ALT 19 Alkaline Phosphatase 102 Troponin I < 0.015 Total Protein 7.6 Albumin 3.8 Globulin 3.8 Albumin/Globulin Ratio 1.0 Lipase 46 L Urine Color Yellow Urine Clarity Clear Urine pH 6.5 Ur Specific [place] 1.010 Urine Protein 30 H Urine Glucose (UA) Normal Urine Ketones Negative Urine Occult Blood Negative Urine Nitrite Negative Urine Bilirubin Negative Urine Urobilinogen Normal Ur Leukocyte Esterase 100 H Urine RBC 0 SEEN Urine WBC 0-5 SEEN Ur Squamous Epith Cells 0-5 SEEN Urine Bacteria 0 SEEN Urine Mucus 0 SEEN 06/25/20 14:32 WBC RBC Hgb Hct MCV MCH MCHC RDW Std Deviation RDW Coeff of Fabricio Plt Count MPV Immature Gran % (Auto) Neut % (Auto) Lymph % (Auto) [place] % (Auto) Eos % (Auto) Baso % (Auto) Absolute Neuts (auto) Absolute Lymphs (auto) Nucleated RBC % PT 12.8 INR 1.0 APTT 28.6 Sodium Potassium Chloride Carbon Dioxide Anion Gap BUN Creatinine Estim Creat Clear Calc Est GFR (MDRD) Af Amer Est GFR (MDRD) Non-Af BUN/Creatinine Ratio Glucose Calcium Total Bilirubin AST ALT Alkaline Phosphatase Troponin I Total Protein Albumin Globulin Albumin/Globulin Ratio Lipase Urine Color Urine Clarity Urine pH Ur Specific [place] Urine Protein Urine Glucose (UA) Urine Ketones Urine Occult Blood Urine Nitrite Urine Bilirubin Urine Urobilinogen Ur Leukocyte Esterase Urine RBC Urine WBC Ur Squamous Epith Cells Urine Bacteria Urine Mucus Micro: Microbiology 06/25/20 13:58 Stool Occult Blood (ANTONIA) - Final Stool Occult Blood Positive Rhythm Strip Rhythm Strip: Sinus Rhythm Rate: 66 Ectopy: None Radiology Impression Chest X-Ray 06/25/20 13:56 IMPRESSION: Chronic interstitial changes, no superimposed acute pulmonary process Electronically Signed: Brad Day MD at 14:17 EDT , Service support , Abdomen/Pelvis CT 06/25/20 14:41 IMPRESSION: 1. No bowel obstruction or acute inflammatory process. 2. Right femoral hernia without bowel obstruction. 3. Stable chronic changes, as above. Electronically Signed: Mich Cantrell MD ([place]) at 15:37 EDT , Service support , Assessment & Plan Assessment/Plan (1) GI bleed: QUALIFIERS: GI bleed type/associated pathology: gastritis Gastritis type: acute gastritis Qualified Code(s): K29.01 - Acute gastritis with bleeding (2) Nausea and vomiting: QUALIFIERS: Vomiting Intractability: non-intractable Vomiting type: unspecified Qualified Code(s): R11.2 - Nausea with vomiting, unspecified (3) Hypertension: QUALIFIERS: Hypertension type: essential hypertension Qualified Code(s): I10 - Essential (primary) hypertension (4) CAD (coronary artery disease): QUALIFIERS: Associated angina: without angina Coronary Disease- Associated Artery/Lesion type: [place] artery [place] vs. transplanted heart: [place] heart Qualified Code(s): I25.10 - Atherosclerotic heart disease of [place] coronary artery without angina pectoris (5) COPD (chronic obstructive pulmonary disease): QUALIFIERS: COPD type: unspecified COPD Qualified Code(s): J44.9 - Chronic obstructive pulmonary disease, unspecified (6) Obesity: QUALIFIERS: Body mass index: BMI 40.0-44.9 Obesity classification: adult class 3 (BMI >= 40) Obesity type: due to excess calories Serious obesity comorbidity presence: with serious comorbidity Qualified Code(s): E66.01 - Morbid (severe) obesity due to excess calories; Z68.41 - Body mass index [BMI]40.0-44.9, adult PLAN: -Admit to [facility] with cardiac monitoring -Dr. Sotomayor consulted due to active GI bleed -Type and screen patient, patient not currently in need of blood transfusion -Vital signs per protocol, oxygen therapy per protocol -CBC and BMP in a.m., CBC and BMP timed 2030, to trend hemoglobin and hematocrit and BUN/creatinine ratio -As needed Zofran for nausea and vomiting -Clear liquid diet ordered, n.p.o. at midnight pending possible scope in a.m. per Dr. Sotomayor recommendations -Will continue chronic medications for chronic diseases with the exception of aspirin, omeprazole. -Will initiate patient on continuous Protonix drip DVT Prophylaxis-SCDs only due to active bleed This patient was seen by GLADYS Turner under the supervision of Dr. Alejandra. Documented by User: Dr. Kerrie Alejandra MD 06/25/20 19:25 HPI - General General Date of Admission: 06/25/20 [facility] Medical History Abnormal EKG Acute respiratory failure with hypoxemia Anemia Aortic insufficiency Aortic stenosis Arthritis Body mass index (BMI) 35 or more CAD (coronary artery disease) Cardiomyopathy COPD (chronic obstructive pulmonary disease) COPD exacerbation Demand ischemia Dyspnea on exertion Gout HAP (hospital-acquired pneumonia) HCAP (healthcare-associated pneumonia) Hiatal hernia with gastroesophageal reflux Hypertension Hypothyroid Hypothyroidism Hypoxemia Nonrheumatic mitral (valve) insufficiency Obesity Psoriasis Pulmonary edema Secondary pulmonary arterial hypertension Sepsis Severe sepsis Skin cancer Vertigo Home Medications allopurinol 300 mg tablet 150 mg PO DAILY 02/15/17 [History Last Taken 06/24/20] aspirin 81 mg tablet,delayed release 81 mg PO DAILY 02/15/17 [History Last Taken 06/24/20] omeprazole 40 mg capsule,delayed release 40 mg PO DAILY 30 Days #30 cap 12/15/17 [History Last Taken 06/25/20] amlodipine 5 mg tablet 5 mg PO DAILY 01/25/18 [History Last Taken 06/24/20] albuterol sulfate 2.5 mg INHALATION Q6H PRN PRN 02/07/18 [History Last Taken 06/24/20] levothyroxine 125 mcg tablet 125 mcg PO DAILY 05/05/18 [History Last Taken 06/25/20] furosemide 40 mg tablet 40 mg PO DAILY #90 tab 06/14/19 [Rx Last Taken 06/24/20] spironolactone 25 mg tablet 25 mg PO DAILY #90 tab 12/14/19 [Rx Last Taken 06/24/20] calcium carbonate-vitamin D3 1 ea PO DAILY 01/04/20 [History Last Taken 06/24/20] magnesium 250 mg PO QODAY 01/04/20 [History Last Taken 06/24/20] metoprolol tartrate 12.5 mg PO DAILY 01/04/20 [History Last Taken 06/24/20] acetaminophen [Tylenol Extra Strength] 500 - 1,000 mg PO DAILY PRN 06/25/20 [History Last Taken 06/23/20] multivitamin 1 tab PO DAILY 06/25/20 [History Last Taken 06/24/20] Allergy/AdvReac Type Severity Reaction Status Date / Time No Known Allergies Allergy Verified 06/25/20 13:35 Family History Mother Hypertension Father Hypertension Surgical History History of aortic valve replacement (06/15/17) History of bladder suspension procedure History of hysterectomy History of incisional hernia repair History of left heart catheterization (~2011) History of Ronen fundoplication (~10/21/16) History of repair of hiatal hernia (~10/21/16) Social History Smoking Status: Never smoker alcohol intake: never caffeine: Yes Type: coffee Number of servings: 1 Lab / Micro Data Result Diagrams: 06/25/20 14:32 06/25/20 14:32 Addendum Addendum: Patient seen by GLADYS Turner under my supervision Patient is a 84-year-old female who was admitted through the ED on 06/25/2020 with a complaint of coffee-ground emesis. Patient says she had felt like she had some pain in her throat and started throwing up. Emesis was like dark blood. She said pain in her throat was like a burning sensation. Patient states she takes aspirin but denies taking any other blood thinner any [id number] pain medication apart from Tylenol. She denied any fever, chills, shortness of breath, any melena stools or abdominal pain. She denied any history of ulcers. Review of symptoms otherwise negative. In the ED, her vitals were essentially stable. CBC showed hemoglobin of 14.3 which is around her baseline with WBC of 13.2 and platelets of 209. Chemistry was unremarkable for creatinine of 1.17 was otherwise normal limits. She has been admitted to be managed for upper GI bleed. General surgery consulted. O/E: Const alert and oriented x3 General Appearance: cooperative HEENT normocephalic and head/scalp atraumatic Eyes PERRL Neck no lymphadenopathy, supple, no JVD and thyroid normal General: trachea midline Resp normal respiratory effort, normal air movement and clear to auscultation bilaterally Cardio regular rate, regular rhythm, S1 normal heart sound and S2 normal heart sound GI normal to inspection, nondistended, normoactive bowel sounds, soft to palpation and non-tender Extremity normal capillary refill and no clubbing, cyanosis or edema General Extremity: no tenderness to palpation of joints or extremities Skin General Skin Exam: turgor normal Rashes: rashes noted Patient has psoriasis to bilateral legs Neuro CN's II-XII intact bilaterally Psych thought process normal, cooperative and affect normal Appearance: appropriate Plan is to admit to med surg. Hydrate with fluids. Patient started on IV Protonix drip. Keep on clear liquids for now and keep n.p.o. after midnight for possible upper GI scope. General surgery consulted. Hold aspirin. Trend hemoglobin. SCDs for DVT prophylaxis on account of upper GI bleed. CODE STATUS: Full code * Patient and her daughter were counseled about the differences between full code, DNR CCA and DNR CCA. Patient elected to be full code. Total [id number] time was 16 minutes. * Rest as per Brianne Baker NP-C's notes which I reviewed and endorsed. Visit Charges OBSV E&M: 26550 Initial observation care L3 Procedures Hospitalists Procedures: 61645 Advncd Care Plan 30 Min
[2020-06-25 18:30] VITALS: BP 120/82; PULSE 74; RESP 17; O2SAT 97
[2020-06-25 20:48] VITALS: BMI 41.3
[2020-06-25 20:50] VITALS: BP 145/65; PULSE 68; RESP 18; TEMP 36.8; O2SAT 95
[2020-06-25 21:02] LABS: Absolute Neutrophil Count 7.1 X10^3/uL (2.0-7.7); Basophil# 0.04 X10^3/uL; Basophil% 0.4 % (0-1); Eosinophil# 0.07 X10^3/uL; Eosinophils% 0.8 % (0-5); Hematocrit 42.7 % (37-47); Hemoglobin 13.6 g/dL (12.0-15.0); Mean Corp Hgb Conc 31.9 g/dL (32-36); Mean Corpuscular Hgb 30.2 pg (27.0-32.0); Mean Corpuscular Volume 94.9 fL (81-99); Monocyte# 0.78 X10^3/uL; Monocyte% 8.4 % (0-10); NRBC Flagged by Analyzer 0 % (0-5); Neutrophil # 7.06 X10^3/uL (2.7-7.7); Platelet Count 207 K/mm3 (150-450); RBC Distribution Width CV 14.9 % (11.6-14.6); White Blood Count 9.3 K/mm3 (4.4-11.0)
[2020-06-25] MEDS: Acetaminophen 325 MG Tablet 650 MG PO (21:03)
[2020-06-25 21:12] LABS: Anion Gap 5 (5-15); BUN 17 mg/dL (7-18); BUN/Creat Ratio 15.9 RATIO (10-20); Calcium,Total 9.2 mg/dL (8.5-10.1); Chloride 107 mmol/L (98-107); Creatinine, Serum 1.07 mg/dL (0.55-1.02); EST Glomerular Filtration Rate 52 mL/min (>60); Est Glom Filt Rate - Afr Amer 63 mL/min (>60); Estimated Creatinine Clearance 29.53 ml/min; Glucose 106 mg/dL (74-106); Potassium 4.2 mmol/L (3.5-5.1); Sodium Level 140 mmol/L (136-145)
[2020-06-25 22:30] VITALS: PULSE 67
[2020-06-26] VITALS (19 sets, daily range): BP systolic 94–135; BP diastolic 43–77; PULSE 54–93; RESP 16–18; TEMP 36.4–36.8; O2SAT 93–96; BMI 41.3
[2020-06-26] MEDS: Acetaminophen 325 MG Tablet 650 MG PO (06:23)
[2020-06-26] MEDS: Levothyroxine 125 MCG Tablet PO (06:23)
[2020-06-26 06:25] LABS: Absolute Lymphocyte Count 1.35 X10^3/uL (0.83-4.51); Basophil# 0.04 X10^3/uL; Basophil% 0.8 % (0-1); Eosinophil# 0.16 X10^3/uL; Eosinophils% 3.1 % (0-5); Hematocrit 37.1 % (37-47); Hemoglobin 11.6 g/dL (12.0-15.0); Lymphocyte # 1.35 X10^3/ul (0.83-4.51); Lymphocyte % 26.2 % (19-41); Mean Corp Hgb Conc 31.3 g/dL (32-36); Mean Corpuscular Hgb 29.9 pg (27.0-32.0); Mean Corpuscular Volume 95.6 fL (81-99); Monocyte# 0.55 X10^3/uL; Monocyte% 10.7 % (0-10); NRBC Flagged by Analyzer 0 % (0-5); Neutrophil # 3.04 X10^3/uL (2.7-7.7); Neutrophil % 58.8 % (47-70); Platelet Count 166 K/mm3 (150-450); RBC Distribution Width CV 14.9 % (11.6-14.6); RBC Distribution Width SD 51.4 fl (35.1-43.9); Red Blood Count 3.88 M/mm3 (4.2-5.4); White Blood Count 5.2 K/mm3 (4.4-11.0)
[2020-06-26 06:45] LABS: Anion Gap 3 (5-15); BUN 15 mg/dL (7-18); BUN/Creat Ratio 14.6 RATIO (10-20); Calcium,Total 8.7 mg/dL (8.5-10.1); Chloride 110 mmol/L (98-107); Creatinine, Serum 1.03 mg/dL (0.55-1.02); EST Glomerular Filtration Rate 54 mL/min (>60); Est Glom Filt Rate - Afr Amer 66 mL/min (>60); Estimated Creatinine Clearance 30.68 ml/min; Glucose 101 mg/dL (74-106); Potassium 4.1 mmol/L (3.5-5.1); Sodium Level 142 mmol/L (136-145)
--- NOTE | 2020-06-26 07:27 | EX.PCM.CON.S ---
Assessment & Plan Assessment/Plan (1) GI bleed: QUALIFIERS: GI bleed type/associated pathology: gastritis Gastritis type: acute gastritis Qualified Code(s): K29.01 - Acute gastritis with bleeding (2) Nausea and vomiting: QUALIFIERS: Vomiting type: unspecified Vomiting Intractability: non-intractable Qualified Code(s): R11.2 - Nausea with vomiting, unspecified PLAN: The patient has been having coffee-ground emesis. She had no nausea or vomiting overnight. Her hemoglobin did drop by about 1 g but she was dehydrated on admission. I do recommend the patient have an EGD today to evaluate the cause of the bleeding. I explained endoscopy in detail to the patient. I explained the risks including but not limited to stroke or heart attack with anesthesia, perforation of the GI tract, bleeding, infection. I discussed obtaining hemostasis using epinephrine or clips. I explained that any of these could necessitate further emergency surgery. The patient understands and all questions were answered sufficiently. The patient wishes to proceed with procedure. Luis Sotomayor MD Pager: [facility] [address] [place] [address] [address] [place] [address] Office: HPI Consult Data Date of Consult: 06/26/20 HPI Narrative HPI Narrative: GONZALO WELCH, is a 84 F who presented to the emergency department with 24 hours of coffee-ground emesis. The patient has never had an ulcer in the past. The patient reports no history of GI bleeding in the past. Her stools are normal color. She is not having any abdominal pain. She is not on any blood thinners except for aspirin. She has never had an EGD. [facility] Medical History Abnormal EKG Acute respiratory failure with hypoxemia Anemia Aortic insufficiency Aortic stenosis Arthritis Body mass index (BMI) 35 or more CAD (coronary artery disease) Cardiomyopathy COPD (chronic obstructive pulmonary disease) COPD exacerbation Demand ischemia Dyspnea on exertion Gout HAP (hospital-acquired pneumonia) HCAP (healthcare-associated pneumonia) Hiatal hernia with gastroesophageal reflux Hypertension Hypothyroid Hypothyroidism Hypoxemia Nonrheumatic mitral (valve) insufficiency Obesity Psoriasis Pulmonary edema Secondary pulmonary arterial hypertension Sepsis Severe sepsis Skin cancer Vertigo Home Medications allopurinol 300 mg tablet 150 mg PO DAILY 02/15/17 [History Last Taken 06/24/20] aspirin 81 mg tablet,delayed release 81 mg PO DAILY 02/15/17 [History Last Taken 06/24/20] omeprazole 40 mg capsule,delayed release 40 mg PO DAILY 30 Days #30 cap 12/15/17 [History Last Taken 06/25/20] amlodipine 5 mg tablet 5 mg PO DAILY 01/25/18 [History Last Taken 06/24/20] albuterol sulfate 2.5 mg INHALATION Q6H PRN PRN 02/07/18 [History Last Taken 06/24/20] levothyroxine 125 mcg tablet 125 mcg PO DAILY 05/05/18 [History Last Taken 06/25/20] furosemide 40 mg tablet 40 mg PO DAILY #90 tab 06/14/19 [Rx Last Taken 06/24/20] spironolactone 25 mg tablet 25 mg PO DAILY #90 tab 12/14/19 [Rx Last Taken 06/24/20] calcium carbonate-vitamin D3 1 ea PO DAILY 01/04/20 [History Last Taken 06/24/20] magnesium 250 mg PO QODAY 01/04/20 [History Last Taken 06/24/20] metoprolol tartrate 12.5 mg PO DAILY 01/04/20 [History Last Taken 06/24/20] acetaminophen [Tylenol Extra Strength] 500 - 1,000 mg PO DAILY PRN 06/25/20 [History Last Taken 06/23/20] multivitamin 1 tab PO DAILY 06/25/20 [History Last Taken 06/24/20] Allergy/AdvReac Type Severity Reaction Status Date / Time No Known Allergies Allergy Verified 06/25/20 13:35 Family History Mother Hypertension Father Hypertension Surgical History History of aortic valve replacement (06/15/17) History of bladder suspension procedure History of hysterectomy History of incisional hernia repair History of left heart catheterization (~2011) History of Ronen fundoplication (~10/21/16) History of repair of hiatal hernia (~10/21/16) Social History Smoking Status: Never smoker alcohol intake: never caffeine: Yes Type: coffee Number of servings: 1 ROS Constitutional Constitutional: Denies anorexia or chills ENT HEENT: Denies dysphagia Cardiovascular Cardiovascular: Denies chest pain Respiratory/Chest Respiratory/Chest: Denies cough, dyspnea, productive cough or wheezing Gastrointestinal Gastrointestinal: Reports coffee ground emesis and vomiting; Denies abdominal pain, bloating, constipation, diarrhea, dysphagia, melena, nausea or rectal bleeding Musculoskeletal Musculoskeletal: Denies abnormal gait or back pain Integumentary Integumentary: Denies jaundice Neurologic Neurologic: Denies dizziness Hematologic/Lymphatic Hematologic/Lymphatic: Denies easy bleeding Physical Exam Const alert and oriented x3 HEENT normocephalic Eyes PERRL Neck full ROM Resp normal respiratory effort Cardio Rate: regular rate Rhythm: regular rhythm GI normal to inspection, nondistended, normoactive bowel sounds Extremity normal to inspection Skin General Skin Exam: no breakdown Neuro CN's II-XII intact bilaterally Lab / Micro Data Result Diagrams: 06/26/20 05:54 06/26/20 05:54 Labs: Laboratory Results - last 24 hr 06/25/20 06/25/20 06/25/20 13:58 14:32 14:32 WBC 13.2 H RBC 4.77 Hgb 14.3 Hct 45.7 MCV 95.8 MCH 30.0 MCHC 31.3 L RDW Std Deviation 51.3 H RDW Coeff of Fabricio 14.8 H Plt Count 209 MPV 12.0 Immature Gran % (Auto) 0.500 Neut % (Auto) 84.2 H Lymph % (Auto) 8.6 L [place] % (Auto) 6.2 Eos % (Auto) 0.2 Baso % (Auto) 0.3 Absolute Neuts (auto) 11.1 H Absolute Lymphs (auto) 1.13 Nucleated RBC % 0 PT INR APTT Sodium 138 Potassium 4.2 Chloride 104 Carbon Dioxide 31.0 Anion Gap 3 L BUN 20 H Creatinine 1.17 H Estim Creat Clear Calc 27.01 Est GFR (MDRD) Af Amer 57 L Est GFR (MDRD) Non-Af 47 L BUN/Creatinine Ratio 17.1 Glucose 127 H Calcium 9.5 Total Bilirubin 0.40 AST 17 ALT 19 Alkaline Phosphatase 102 Troponin I < 0.015 Total Protein 7.6 Albumin 3.8 Globulin 3.8 Albumin/Globulin Ratio 1.0 Lipase 46 L Urine Color Yellow Urine Clarity Clear Urine pH 6.5 Ur Specific [place] 1.010 Urine Protein 30 H Urine Glucose (UA) Normal Urine Ketones Negative Urine Occult Blood Negative Urine Nitrite Negative Urine Bilirubin Negative Urine Urobilinogen Normal Ur Leukocyte Esterase 100 H Urine RBC 0 SEEN Urine WBC 0-5 SEEN Ur Squamous Epith Cells 0-5 SEEN Urine Bacteria 0 SEEN Urine Mucus 0 SEEN 06/25/20 06/25/20 06/25/20 14:32 20:44 20:44 WBC 9.3 RBC 4.50 Hgb 13.6 Hct 42.7 MCV 94.9 MCH 30.2 MCHC 31.9 L RDW Std Deviation 51.0 H RDW Coeff of Fabricio 14.9 H Plt Count 207 MPV 12.0 Immature Gran % (Auto) 0.400 Neut % (Auto) 76.0 H Lymph % (Auto) 14.0 L [place] % (Auto) 8.4 Eos % (Auto) 0.8 Baso % (Auto) 0.4 Absolute Neuts (auto) 7.1 Absolute Lymphs (auto) 1.30 Nucleated RBC % 0 PT 12.8 INR 1.0 APTT 28.6 Sodium 140 Potassium 4.2 Chloride 107 Carbon Dioxide 28.0 Anion Gap 5 BUN 17 Creatinine 1.07 H Estim Creat Clear Calc 29.53 Est GFR (MDRD) Af Amer 63 Est GFR (MDRD) Non-Af 52 L BUN/Creatinine Ratio 15.9 Glucose 106 Calcium 9.2 Total Bilirubin AST ALT Alkaline Phosphatase Troponin I Total Protein Albumin Globulin Albumin/Globulin Ratio Lipase Urine Color Urine Clarity Urine pH Ur Specific [place] Urine Protein Urine Glucose (UA) Urine Ketones Urine Occult Blood Urine Nitrite Urine Bilirubin Urine Urobilinogen Ur Leukocyte Esterase Urine RBC Urine WBC Ur Squamous Epith Cells Urine Bacteria Urine Mucus 06/26/20 06/26/20 05:54 05:54 WBC 5.2 RBC 3.88 L Hgb 11.6 L Hct 37.1 MCV 95.6 MCH 29.9 MCHC 31.3 L RDW Std Deviation 51.4 H RDW Coeff of Fabricio 14.9 H Plt Count 166 MPV 12.0 Immature Gran % (Auto) 0.400 Neut % (Auto) 58.8 Lymph % (Auto) 26.2 [place] % (Auto) 10.7 H Eos % (Auto) 3.1 Baso % (Auto) 0.8 Absolute Neuts (auto) 3.0 Absolute Lymphs (auto) 1.35 Nucleated RBC % 0 PT INR APTT Sodium 142 Potassium 4.1 Chloride 110 H Carbon Dioxide 29.0 Anion Gap 3 L BUN 15 Creatinine 1.03 H Estim Creat Clear Calc 30.68 Est GFR (MDRD) Af Amer 66 Est GFR (MDRD) Non-Af 54 L BUN/Creatinine Ratio 14.6 Glucose 101 Calcium 8.7 Total Bilirubin AST ALT Alkaline Phosphatase Troponin I Total Protein Albumin Globulin Albumin/Globulin Ratio Lipase Urine Color Urine Clarity Urine pH Ur Specific [place] Urine Protein Urine Glucose (UA) Urine Ketones Urine Occult Blood Urine Nitrite Urine Bilirubin Urine Urobilinogen Ur Leukocyte Esterase Urine RBC Urine WBC Ur Squamous Epith Cells Urine Bacteria Urine Mucus Micro: Microbiology 06/25/20 13:58 Stool Occult Blood (ANTONIA) - Final Stool Occult Blood Positive Rhythm Strip Rhythm Strip: Sinus Rhythm Rate: 66 Ectopy: None Radiology Impression Chest X-Ray 06/25/20 13:56 IMPRESSION: Chronic interstitial changes, no superimposed acute pulmonary process Electronically Signed: Brad Day MD at 14:17 EDT , Service support , Abdomen/Pelvis CT 06/25/20 14:41 IMPRESSION: 1. No bowel obstruction or acute inflammatory process. 2. Right femoral hernia without bowel obstruction. 3. Stable chronic changes, as above. Electronically Signed: Mich Cantrell MD ([place]) at 15:37 EDT , Service support ,
[2020-06-26] MEDS: Metoprolol Tartrate 25 MG Tablet 12.5 MG PO (08:01)
--- NOTE | 2020-06-26 08:01 | PCM.PN.HOSP ---
Objective Data Objective Data Vital Signs: Vital Signs Temp Pulse Resp BP Pulse Ox 97.7 F L 60 18 124/74 H 93 06/26/20 07:41 06/26/20 07:41 06/26/20 07:41 06/26/20 07:41 06/26/20 07:52 Oxygen Delivery Method Room Air Weight: 99.155 kg Body Mass Index (BMI) 41.3 Intake & Output: Intake and Output for Last 24 Hours 06/24/20 06/25/20 06/26/20 23:59 23:59 23:59 Intake Total 910 / 910 93.17 / 93.17 Balance 910 / 910 93.17 / 93.17 Lab / Micro Data Result Diagrams: 06/26/20 05:54 06/26/20 05:54 Labs: Laboratory Results - last 24 hr 06/25/20 06/25/20 06/25/20 13:58 14:32 14:32 WBC 13.2 H RBC 4.77 Hgb 14.3 Hct 45.7 MCV 95.8 MCH 30.0 MCHC 31.3 L RDW Std Deviation 51.3 H RDW Coeff of Fabricio 14.8 H Plt Count 209 MPV 12.0 Immature Gran % (Auto) 0.500 Neut % (Auto) 84.2 H Lymph % (Auto) 8.6 L [place] % (Auto) 6.2 Eos % (Auto) 0.2 Baso % (Auto) 0.3 Absolute Neuts (auto) 11.1 H Absolute Lymphs (auto) 1.13 Nucleated RBC % 0 PT INR APTT Sodium 138 Potassium 4.2 Chloride 104 Carbon Dioxide 31.0 Anion Gap 3 L BUN 20 H Creatinine 1.17 H Estim Creat Clear Calc 27.01 Est GFR (MDRD) Af Amer 57 L Est GFR (MDRD) Non-Af 47 L BUN/Creatinine Ratio 17.1 Glucose 127 H Calcium 9.5 Total Bilirubin 0.40 AST 17 ALT 19 Alkaline Phosphatase 102 Troponin I < 0.015 Total Protein 7.6 Albumin 3.8 Globulin 3.8 Albumin/Globulin Ratio 1.0 Lipase 46 L Urine Color Yellow Urine Clarity Clear Urine pH 6.5 Ur Specific [place] 1.010 Urine Protein 30 H Urine Glucose (UA) Normal Urine Ketones Negative Urine Occult Blood Negative Urine Nitrite Negative Urine Bilirubin Negative Urine Urobilinogen Normal Ur Leukocyte Esterase 100 H Urine RBC 0 SEEN Urine WBC 0-5 SEEN Ur Squamous Epith Cells 0-5 SEEN Urine Bacteria 0 SEEN Urine Mucus 0 SEEN 06/25/20 06/25/20 06/25/20 14:32 20:44 20:44 WBC 9.3 RBC 4.50 Hgb 13.6 Hct 42.7 MCV 94.9 MCH 30.2 MCHC 31.9 L RDW Std Deviation 51.0 H RDW Coeff of Fabricio 14.9 H Plt Count 207 MPV 12.0 Immature Gran % (Auto) 0.400 Neut % (Auto) 76.0 H Lymph % (Auto) 14.0 L [place] % (Auto) 8.4 Eos % (Auto) 0.8 Baso % (Auto) 0.4 Absolute Neuts (auto) 7.1 Absolute Lymphs (auto) 1.30 Nucleated RBC % 0 PT 12.8 INR 1.0 APTT 28.6 Sodium 140 Potassium 4.2 Chloride 107 Carbon Dioxide 28.0 Anion Gap 5 BUN 17 Creatinine 1.07 H Estim Creat Clear Calc 29.53 Est GFR (MDRD) Af Amer 63 Est GFR (MDRD) Non-Af 52 L BUN/Creatinine Ratio 15.9 Glucose 106 Calcium 9.2 Total Bilirubin AST ALT Alkaline Phosphatase Troponin I Total Protein Albumin Globulin Albumin/Globulin Ratio Lipase Urine Color Urine Clarity Urine pH Ur Specific [place] Urine Protein Urine Glucose (UA) Urine Ketones Urine Occult Blood Urine Nitrite Urine Bilirubin Urine Urobilinogen Ur Leukocyte Esterase Urine RBC Urine WBC Ur Squamous Epith Cells Urine Bacteria Urine Mucus 06/26/20 06/26/20 05:54 05:54 WBC 5.2 RBC 3.88 L Hgb 11.6 L Hct 37.1 MCV 95.6 MCH 29.9 MCHC 31.3 L RDW Std Deviation 51.4 H RDW Coeff of Fabricio 14.9 H Plt Count 166 MPV 12.0 Immature Gran % (Auto) 0.400 Neut % (Auto) 58.8 Lymph % (Auto) 26.2 [place] % (Auto) 10.7 H Eos % (Auto) 3.1 Baso % (Auto) 0.8 Absolute Neuts (auto) 3.0 Absolute Lymphs (auto) 1.35 Nucleated RBC % 0 PT INR APTT Sodium 142 Potassium 4.1 Chloride 110 H Carbon Dioxide 29.0 Anion Gap 3 L BUN 15 Creatinine 1.03 H Estim Creat Clear Calc 30.68 Est GFR (MDRD) Af Amer 66 Est GFR (MDRD) Non-Af 54 L BUN/Creatinine Ratio 14.6 Glucose 101 Calcium 8.7 Total Bilirubin AST ALT Alkaline Phosphatase Troponin I Total Protein Albumin Globulin Albumin/Globulin Ratio Lipase Urine Color Urine Clarity Urine pH Ur Specific [place] Urine Protein Urine Glucose (UA) Urine Ketones Urine Occult Blood Urine Nitrite Urine Bilirubin Urine Urobilinogen Ur Leukocyte Esterase Urine RBC Urine WBC Ur Squamous Epith Cells Urine Bacteria Urine Mucus Micro: Microbiology 06/25/20 13:58 Stool Stool Occult Blood (ANTONIA) - Final Occult Blood Positive Radiography Diagnostic Testing: Radiology Impression Chest X-Ray 06/25/20 13:56 IMPRESSION: Chronic interstitial changes, no superimposed acute pulmonary process Electronically Signed: Brad Day MD at 14:17 EDT , Service support , Abdomen/Pelvis CT 06/25/20 14:41 IMPRESSION: 1. No bowel obstruction or acute inflammatory process. 2. Right femoral hernia without bowel obstruction. 3. Stable chronic changes, as above. Electronically Signed: Mich Cantrell MD ([place]) at 15:37 EDT , Service support , Rhythm Strip Rhythm Strip: Sinus Rhythm Rate: 66 Ectopy: None
--- NOTE | 2020-06-26 11:05 | OP.EGD_ITS ---
Patient Name: Anastasiya Lei Procedure Date: 06/26/2020 10:31 AM Date of : 1935 Age: 84 Procedure: Upper GI endoscopy Indications: Coffee-ground emesis Providers: Luis Sotomayor MD Medicines: Monitored Anesthesia Care Patient Profile: This is an 84 year old female. Refer to note in patient chart for documentation of history and physical. Complications: No immediate complications. Procedure: Pre-Anesthesia Assessment: - Prior to the procedure, a History and Physical was performed, and patient medications and allergies were reviewed. The patient's tolerance of previous anesthesia was also reviewed. The risks and benefits of the procedure and the sedation options and risks were discussed with the patient. All questions were answered, and informed consent was obtained. Prior Anticoagulants: The patient has taken aspirin, last dose was 1 day prior to procedure. After reviewing the risks and benefits, the patient was deemed in satisfactory condition to undergo the procedure. After obtaining informed consent, the endoscope was passed under direct vision. Throughout the procedure, the patient's blood pressure, pulse, and oxygen saturations were monitored continuously. The gastroscope was introduced through the mouth, and advanced to the fourth part of duodenum. The upper GI endoscopy was accomplished without difficulty. The patient tolerated the procedure well. Scope In: 10:58:12 AM Scope Out: 11:02:31 AM Total Procedure Duration Time 0 hours 4 minutes 19 seconds Findings: The esophagus was normal. The stomach was normal. The examined duodenum was normal. Impression: - Normal esophagus. - Normal stomach. - Normal examined duodenum. - No specimens collected. Recommendation: - [facility] to [facility] for [facility] care. - Advance diet as tolerated. - Continue present medications. Procedure Code(s): --- Professional --- 56493, Esophagogastroduodenoscopy, flexible, transoral; diagnostic, including collection of specimen(s) by brushing or washing, when performed (separate procedure) Diagnosis Code(s): --- Professional --- K92.0, Hematemesis CPT copyright 2017 [employer]. All rights reserved. The codes documented in this report are preliminary and upon instrument lens generator review may be revised to meet current compliance requirements. Luis Sotomayor MD 06/26/2020 11:04:51 AM This report has been signed electronically. Number of Addenda: 0 Note Initiated On: 06/26/2020 10:31 AM
--- NOTE | 2020-06-26 11:05 | OP.CCLET_ITS ---
06/26/2020 Pete Butler Do Re : Upper GI endoscopy procedure for Anastasiya Lei Dear Carrie This procedure was performed on Friday, June 26, 2020. My impressions and recommendations are as follows: Impressions : - Normal esophagus. - Normal stomach. - Normal examined duodenum. - No specimens collected. Recommendations : - Return patient to [facility] for ongoing care. - Advance diet as tolerated. - Continue present medications. My findings are described in the full procedure note, which is enclosed. If I can be of further assistance, please feel free to contact me at Doctor phone number(s): , Work: . Sincerely, Luis Sotomayor MD 06/26/2020 11:04:51 AM This report has been signed electronically.
--- NOTE | 2020-06-26 12:53 | CASEMGMT ---
RN UZIEL [employer] CM to room to meet with patient for initial transition planning/care coordination assessment. DRE TRIPLETT introduced self and role at [facility]. Pt voices understanding and consents to assessment at this time. Pt sitting up in recliner chair in no distress at this time. Granddaughter/POA, Mar, in room visiting. Pt is A/O at this time and answers all questions appropriately. Care providers, pharmacy, and demographics verified/updated at this time. PCP: Dr Pete Butler Specialists: [facility], Clay Hoister Preferred Pharmacy: [facility] Insurance: MCR, [employer] Prescription Benefit: Yes Living Will/HPOA: Has completed both LW and Healthcare POA, who is her GD Mar LNOK: GD, Mar/POA. Brother: Florian Living Arrangements: Lives alone in a ground-floor apt w/no steps to enter. Independent w/ADL's and IADL's. GD helps w/groceries when needed. Transportation: Pt states drives self and states no transportation concerns at this time. DME: States has the following DME: grab bars and nebulizer. Pt also has, but does not use: shower chair, cane, walker, Pt states no need for further DME at this time. HHC/SNF: Hx of Rehab unit @ [facility] and [facility]. Has had HHC in the past but does not remember the name of agency. Pt wishes to return home and states has no concerns with going home at time of discharge. She denies need for HHC or therapy. CM to follow for any discharge planning/needs. Pt and GD voice no concerns/needs at this time. Advised them to ask for CM if any questions/concerns/needs arise. They voice understanding. PLAN: Home Kaur PATEL RN, CM
[2020-06-26] MEDS: amLODIPine 5 MG Tablet PO (13:16)
[2020-06-26] MEDS: Furosemide 40 MG Tablet PO (13:16)
[2020-06-26] MEDS: Multivitamins,Therapeutic Tablet 1 TABLET PO (13:16)
[2020-06-26] MEDS: Calcium Carb/Vitamin D 1 TABLET Tablet PO (13:17)
[2020-06-26] MEDS: Magnesium Chloride 64 MG Delay Rel.Tablet 128 MG PO (13:17)
[2020-06-26] MEDS: Spironolactone 25 MG Tablet PO (13:18)
--- NOTE | 2020-06-26 13:20 | NURSING ---
RNCM Palliative Screening Note: [facility] Palliative Screening Tool completed d/t Lace 3. Did not meet criteria at this time. JAYESH Moraes
--- NOTE | 2020-06-26 13:27 | PCM.DC.SUM ---
Providers Date of Admission: 06/25/20 Primary Care Physician: Peet Butler DO Consultations 06/25/20 19:15 Consult: General Surgery Routine Consulting Provider: Luis Sotomayor Reason for Consult: GI bleed EMERGENT Consult: No MD Notified: Yes Date Notified:: 06/25/20 Time Notified: 17:29 Method of Notification: Provider Initiated Reason For Visit: GI BLEED Diagnosis Discharge Diagnosis (1) GI bleed: Status: Acute Code(s): K92.2 - Gastrointestinal hemorrhage, unspecified Qualifiers: GI bleed type/associated pathology: gastritis Gastritis type: acute gastritis Qualified Code(s): K29.01 - Acute gastritis with bleeding (2) Nausea and vomiting: Status: Acute Code(s): R11.2 - Nausea with vomiting, unspecified Qualifiers: Vomiting type: unspecified Vomiting Intractability: non-intractable Qualified Code(s): R11.2 - Nausea with vomiting, unspecified Medications at Discharge Home Medications allopurinol 300 mg tablet 150 mg PO DAILY 02/15/17 aspirin 81 mg tablet,delayed release 81 mg PO DAILY 02/15/17 amlodipine 5 mg tablet 5 mg PO DAILY 01/25/18 albuterol sulfate 2.5 mg INHALATION Q6H PRN PRN 02/07/18 levothyroxine 125 mcg tablet 125 mcg PO DAILY 05/05/18 furosemide 40 mg tablet 40 mg PO DAILY #90 tab 06/14/19 spironolactone 25 mg tablet 25 mg PO DAILY #90 tab 12/14/19 calcium carbonate-vitamin D3 1 ea PO DAILY 01/04/20 magnesium 250 mg PO QODAY 01/04/20 metoprolol tartrate 12.5 mg PO DAILY 01/04/20 acetaminophen [Tylenol Extra Strength] 500 - 1,000 mg PO DAILY PRN 06/25/20 multivitamin 1 tab PO DAILY 06/25/20 pantoprazole [Protonix] 40 mg PO DAILY #90 tab 06/26/20 Hospital Course Summary of Care Provided Minutes Spent on Discharge: 35 Hospital Course: Patient is an 84-year-old lady with multiple comorbidities admitted with coffee-ground emesis. Patient was admitted to regular nursing floor started on Protonix drip. Consult was placed to general surgery. Patient was seen by Dr. Sotomayor who did perform upper EGD results are as below. Re : Upper GI endoscopy procedure for Anastasiya Lei Dear? Carrie This procedure was performed on Friday, June 26, 2020.? My impressions and ?recommendations are as follows: Impressions : - Normal esophagus. - Normal stomach. - Normal examined duodenum. - No specimens collected. Recommendations : - Return patient to [facility] for ongoing care. - Advance diet as tolerated. - Continue present medications. Patient had no recurrence of the coffee-ground emesis. Was on omeprazole this was discontinued prescription written for Protonix on discharge. Physical Exam Narrative GENERAL: cooperative HEENT: Atraumatic; EYES; Anicteric, Normal Conjunctiva NECK; supple, normal thyroid, RESPIRATORY: Diminished to auscultation CARDIOVASCULAR: Regular S1 S2, GI: soft, normoactive bowel sounds, : No Renal angle tenderness; PSYCH; appropriate affect ABG / Lab / Microbiology Data Result Diagrams: 06/26/20 05:54 06/26/20 05:54 Laboratory: Laboratory Results - last 24 hr 06/25/20 06/25/20 06/25/20 13:58 14:32 14:32 WBC 13.2 H RBC 4.77 Hgb 14.3 Hct 45.7 MCV 95.8 MCH 30.0 MCHC 31.3 L RDW Std Deviation 51.3 H RDW Coeff of Fabricio 14.8 H Plt Count 209 MPV 12.0 Immature Gran % (Auto) 0.500 Neut % (Auto) 84.2 H Lymph % (Auto) 8.6 L [place] % (Auto) 6.2 Eos % (Auto) 0.2 Baso % (Auto) 0.3 Absolute Neuts (auto) 11.1 H Absolute Lymphs (auto) 1.13 Nucleated RBC % 0 PT INR APTT Sodium 138 Potassium 4.2 Chloride 104 Carbon Dioxide 31.0 Anion Gap 3 L BUN 20 H Creatinine 1.17 H Estim Creat Clear Calc 27.01 Est GFR (MDRD) Af Amer 57 L Est GFR (MDRD) Non-Af 47 L BUN/Creatinine Ratio 17.1 Glucose 127 H Calcium 9.5 Total Bilirubin 0.40 AST 17 ALT 19 Alkaline Phosphatase 102 Troponin I < 0.015 Total Protein 7.6 Albumin 3.8 Globulin 3.8 Albumin/Globulin Ratio 1.0 Lipase 46 L Urine Color Yellow Urine Clarity Clear Urine pH 6.5 Ur Specific Pierre 1.010 Urine Protein 30 H Urine Glucose (UA) Normal Urine Ketones Negative Urine Occult Blood Negative Urine Nitrite Negative Urine Bilirubin Negative Urine Urobilinogen Normal Ur Leukocyte Esterase 100 H Urine RBC 0 SEEN Urine WBC 0-5 SEEN Ur Squamous Epith Cells 0-5 SEEN Urine Bacteria 0 SEEN Urine Mucus 0 SEEN 06/25/20 06/25/20 06/25/20 14:32 20:44 20:44 WBC 9.3 RBC 4.50 Hgb 13.6 Hct 42.7 MCV 94.9 MCH 30.2 MCHC 31.9 L RDW Std Deviation 51.0 H RDW Coeff of Fabricio 14.9 H Plt Count 207 MPV 12.0 Immature Gran % (Auto) 0.400 Neut % (Auto) 76.0 H Lymph % (Auto) 14.0 L [place] % (Auto) 8.4 Eos % (Auto) 0.8 Baso % (Auto) 0.4 Absolute Neuts (auto) 7.1 Absolute Lymphs (auto) 1.30 Nucleated RBC % 0 PT 12.8 INR 1.0 APTT 28.6 Sodium 140 Potassium 4.2 Chloride 107 Carbon Dioxide 28.0 Anion Gap 5 BUN 17 Creatinine 1.07 H Estim Creat Clear Calc 29.53 Est GFR (MDRD) Af Amer 63 Est GFR (MDRD) Non-Af 52 L BUN/Creatinine Ratio 15.9 Glucose 106 Calcium 9.2 Total Bilirubin AST ALT Alkaline Phosphatase Troponin I Total Protein Albumin Globulin Albumin/Globulin Ratio Lipase Urine Color Urine Clarity Urine pH Ur Specific Pierre Urine Protein Urine Glucose (UA) Urine Ketones Urine Occult Blood Urine Nitrite Urine Bilirubin Urine Urobilinogen Ur Leukocyte Esterase Urine RBC Urine WBC Ur Squamous Epith Cells Urine Bacteria Urine Mucus 06/26/20 06/26/20 05:54 05:54 WBC 5.2 RBC 3.88 L Hgb 11.6 L Hct 37.1 MCV 95.6 MCH 29.9 MCHC 31.3 L RDW Std Deviation 51.4 H RDW Coeff of Fabricio 14.9 H Plt Count 166 MPV 12.0 Immature Gran % (Auto) 0.400 Neut % (Auto) 58.8 Lymph % (Auto) 26.2 [place] % (Auto) 10.7 H Eos % (Auto) 3.1 Baso % (Auto) 0.8 Absolute Neuts (auto) 3.0 Absolute Lymphs (auto) 1.35 Nucleated RBC % 0 PT INR APTT Sodium 142 Potassium 4.1 Chloride 110 H Carbon Dioxide 29.0 Anion Gap 3 L BUN 15 Creatinine 1.03 H Estim Creat Clear Calc 30.68 Est GFR (MDRD) Af Amer 66 Est GFR (MDRD) Non-Af 54 L BUN/Creatinine Ratio 14.6 Glucose 101 Calcium 8.7 Total Bilirubin AST ALT Alkaline Phosphatase Troponin I Total Protein Albumin Globulin Albumin/Globulin Ratio Lipase Urine Color Urine Clarity Urine pH Ur Specific Pierre Urine Protein Urine Glucose (UA) Urine Ketones Urine Occult Blood Urine Nitrite Urine Bilirubin Urine Urobilinogen Ur Leukocyte Esterase Urine RBC Urine WBC Ur Squamous Epith Cells Urine Bacteria Urine Mucus Microbiology: Microbiology 06/26/20 07:38 SARS-CoV-2 Antigen (Rapid) - Final Interface Orders 06/25/20 13:58 Stool Occult Blood (ANTONIA) - Final Stool Occult Blood Positive Microbiology 06/26/20 07:38 Interface Orders SARS-CoV-2 Antigen (Rapid) - Final 06/25/20 13:58 Stool Stool Occult Blood (ANTONIA) - Final Occult Blood Positive Radiography Diagnostic Testing: Radiology Impression Chest X-Ray 06/25/20 13:56 IMPRESSION: Chronic interstitial changes, no superimposed acute pulmonary process Electronically Signed: Brad Day MD at 14:17 EDT , Service support , Abdomen/Pelvis CT 06/25/20 14:41 IMPRESSION: 1. No bowel obstruction or acute inflammatory process. 2. Right femoral hernia without bowel obstruction. 3. Stable chronic changes, as above. Electronically Signed: Mich Cantrell MD ([place]) at 15:37 EDT , Service support , D/C Instructions Discharge Diet: No restrictions Discharge Activity: Return to Normal Activity Call your doctor if you observe: Fever of 101 or Higher, Inability to have a bowel movement, Shortness of breath, Dizziness, Fainting spells, Chest pain and Uncontrolled pain Meaningful Use Info Meaningful Use Diagnoses (Choose all that apply): None applicable Discharge Plan Admission Admit Date/Time: 06/25/20 17:36 Primary Reason for Your Visit: Coffee-ground emesis Attending Provider: Leopoldo De La Vega Primary Care Provider: Pete Butler Consulting Providers: Luis Sotomayor Discharge Orders/Prescriptions Prescriptions: New pantoprazole [Protonix] 40 mg tablet,delayed release (DR/EC) 40 mg PO DAILY Qty: 90 RF: 0 Continued aspirin [Adult Low Dose Aspirin] 81 mg tablet,delayed release (DR/EC) 81 mg PO DAILY RF: 0 allopurinol 300 mg tablet 150 mg PO DAILY RF: 0 amlodipine 5 mg tablet 5 mg PO DAILY RF: 0 levothyroxine 125 mcg tablet 125 mcg PO DAILY RF: 0 furosemide 40 mg tablet 40 mg PO DAILY Qty: 90 RF: 3 spironolactone 25 mg tablet 25 mg PO DAILY Qty: 90 RF: 3 albuterol sulfate 2.5 MG/3 ML solution for nebulization 2.5 mg Inhalation Q6H PRN PRN (Reason: Sob &/Or Wheezing) RF: 0 magnesium 250 MG tablet 250 mg PO QODAY RF: 0 calcium carbonate-vitamin D3 1 EACH tablet 1 ea PO DAILY RF: 0 metoprolol tartrate 25 MG tablet 12.5 mg PO DAILY RF: 0 multivitamin Tablet 1 tab PO DAILY RF: 0 acetaminophen [Tylenol Extra Strength] 500 mg Tablet 500 - 1,000 mg PO DAILY PRN (Reason: Pain) RF: 0 Discontinued omeprazole 40 mg capsule,delayed release(DR/EC) 40 mg PO DAILY 30 Days Qty: 30 RF: 0 Referrals / Follow Up: Pete Butler DO [Primary Care Provider] - In 1 Week Disposition Disposition (needs filled in before D/C Order can be placed): Home, self care Visit Charges Inpatient E&M: 65410 Disch Hosp
[2020-06-26] MEDS: Allopurinol 300 MG Tablet PO (14:04)
--- NOTE | 2020-06-26 15:08 | PHA.DC.MR ---
Pharmacy Service has performed discharge medication reconciliation for this patient. The patient's discharge medication list was reviewed for discrepancies and discrepancies were resolved. Discharge medication papers prepared but patient was already discharged before we made it to the room. Home Medications allopurinol 300 mg tablet 150 mg PO DAILY 02/15/17 aspirin 81 mg tablet,delayed release 81 mg PO DAILY 02/15/17 amlodipine 5 mg tablet 5 mg PO DAILY 01/25/18 albuterol sulfate 2.5 mg INHALATION Q6H PRN PRN 02/07/18 levothyroxine 125 mcg tablet 125 mcg PO DAILY 05/05/18 furosemide 40 mg tablet 40 mg PO DAILY #90 tab 06/14/19 spironolactone 25 mg tablet 25 mg PO DAILY #90 tab 12/14/19 calcium carbonate-vitamin D3 1 ea PO DAILY 01/04/20 magnesium 250 mg PO QODAY 01/04/20 metoprolol tartrate 12.5 mg PO DAILY 01/04/20 acetaminophen [Tylenol Extra Strength] 500 - 1,000 mg PO DAILY PRN 06/25/20 multivitamin 1 tab PO DAILY 06/25/20 pantoprazole [Protonix] 40 mg PO DAILY #90 tab 06/26/20
== END 2020-06-26 14:55 | disposition home or self-care (01) | DRG 378 ==
LOC: ED 14:31 → MS3 19:00
PROVIDERS: Nurse Practitioner Family; Surgery; Admitting Provider Student in an Organized Health Care Education/Training Program; Emergency Provider Emergency Medicine; PCP Preventive Medicine Occupational Medicine; Visit Provider Internal Medicine
PROC: 0DJ08ZZ Inspection of Upper Intestinal Tract, Via Natural or Artificial Opening Endoscopic (ICD-10-PCS; CPT 43235; principal; 2020-06-26 10:55)
DX: K29.01 Acute gastritis with bleeding (principal); Z68.41 Body mass index [BMI] 40.0-44.9, adult; M19.90 Unspecified osteoarthritis, unspecified site; I25.10 Atherosclerotic heart disease of native coronary artery without angina pectoris; J44.9 Chronic obstructive pulmonary disease, unspecified; E03.9 Hypothyroidism, unspecified; K21.9 Gastro-esophageal reflux disease without esophagitis; K44.9 Diaphragmatic hernia without obstruction or gangrene; I10 Essential (primary) hypertension; M10.9 Gout, unspecified; I27.21 Secondary pulmonary arterial hypertension; L40.9 Psoriasis, unspecified; E66.01 Morbid (severe) obesity due to excess calories; E86.0 Dehydration; Z79.82 Long term (current) use of aspirin; Z79.899 Other long term (current) drug therapy; Z95.2 Presence of prosthetic heart valve
CPT/HCPCS: 36415; 71045; 74177; 80048; 80053; 81001; 82274; 83690; 84484; 85025; 85610; 85730; 87426; 93005; 99284; J7040; Q9967; A4216; J2405

== ENCOUNTER 2020-08-01 12:21 | Observation (INO) | payer MEDICARE, OTHER, SELFPAY ==
[2020-07-16 09:25] VITALS: BMI 40.8
[2020-08-01] VITALS (19 sets, daily range): BP systolic 94–148; BP diastolic 51–100; PULSE 56–64; RESP 16–18; TEMP 36.2–36.6; O2SAT 90–98; BMI 40.8
--- NOTE | 2020-08-01 09:08 | HP.PCM_ITS ---
History and Physical Date of Admission: 08/01/20 Intake Vital Signs 07/16/20 09:17 07/16/20 09:25 Height 5 ft 1 in Weight: 216 lb 2 oz BMI 40.8 40.8 BP 122/78 H Blood Pressure Location Rt brachial Position Sitting Respiration 16 Pulse 59 L Pulse Source Monitor Temp 98.2 F Temp Source Temporal Pulse Oximetry (%) 96 Oxygen Delivery Method room air Intake Visit Reasons: Right Femoral Hernia Chief Complaint: Right femoral hernia Slide Fasteners Inspector Required: No Accompanied by: Brother Is patient in pain?: No (abdominal pressure) Allergies No Known Allergies Allergy (Verified 07/16/20 09:19) Medications amlodipine 5 mg tablet 5 mg PO DAILY 01/25/18 [History Confirmed 07/16/20] albuterol sulfate 2.5 mg INHALATION Q6H PRN PRN 02/07/18 [History Confirmed 07/16/20] levothyroxine 125 mcg tablet 125 mcg PO DAILY 05/05/18 [History Confirmed 07/16/20] furosemide 40 mg tablet 40 mg PO DAILY #90 tab 06/14/19 [Rx Confirmed 07/16/20] spironolactone 25 mg tablet 25 mg PO DAILY #90 tab 12/14/19 [Rx Confirmed 07/16/20] calcium carbonate-vitamin D3 1 ea PO DAILY 01/04/20 [History Confirmed 07/16/20] magnesium 250 mg PO QODAY 01/04/20 [History Confirmed 07/16/20] acetaminophen [Tylenol Extra Strength] 500 - 1,000 mg PO DAILY PRN 06/25/20 [History Confirmed 07/16/20] multivitamin 1 tab PO DAILY 06/25/20 [History Confirmed 07/16/20] pantoprazole [Protonix] 40 mg PO DAILY #90 tab 06/26/20 [Rx Confirmed 07/16/20] allopurinol 300 mg tablet 150 mg PO DAILY tab 07/10/20 [History Confirmed 07/16/20] metoprolol tartrate 25 mg tablet 12.5 mg PO BID tab 07/10/20 [History Confirmed 07/16/20] [facility] Medical History (Updated 07/17/20 @ 07:[address] Luis Sotomayor MD) Anemia Aortic insufficiency Aortic stenosis Arthritis Body mass index (BMI) 35 or more CAD (coronary artery disease) Cardiomyopathy COPD (chronic obstructive pulmonary disease) Demand ischemia Femoral hernia of right side GERD (gastroesophageal reflux disease) Gout Hiatal hernia with gastroesophageal reflux Hypertension Hypothyroid Hypothyroidism Hypoxemia Nonrheumatic mitral (valve) insufficiency Obesity Psoriasis Pulmonary edema Secondary pulmonary arterial hypertension Skin cancer Vertigo Surgical History (Updated 07/16/20 @ 09:14 by Indira Johnson) History of aortic valve replacement (06/15/17) History of bladder suspension procedure History of esophagogastroduodenoscopy (EGD) History of hysterectomy History of incisional hernia repair History of left heart catheterization (~2011) History of Ronen fundoplication (~10/21/16) History of partial colectomy History of repair of hiatal hernia (~10/21/16) Hx of colonoscopy Family History (Updated 07/16/20 @ 09:17 by Indira Johnson) Mother Hypertension Diabetes Father Hypertension Heart disease CVA (cerebral vascular accident) Cancer Brother Cancer Diabetes Heart disease CVA (cerebral vascular accident) Brother CVA (cerebral vascular accident) Social History (Updated 07/16/20 @ 09:17 by Indira Johnson) Smoking Status: Never smoker second hand exposure: No alcohol intake: never substance use type: does not use caffeine: Yes Type: coffee Number of servings: 1 what type of physical activity do you participate in: none frequency: does not exercise HPI HPI HPI: GONZALO WELCH, is a 84 F who presents to the office today for abdominal pain. The patient reports he is having upper abdominal pain. She also had right groin pain after being discharged from the hospital recently. Patient notes that she is having bulging in the upper area and was told she had a fatty tumor. Patient notes no nausea or vomiting or fevers or chills. ROS General General: No weight change, appetite, fatigue, colon cancer, breast cancer or weakness HEENT HEENT: No difficulty swallowing, eye injury, eye surgery, swollen glands or hoarseness Endo Endocrine: Yes thyroid disease; No diabetes mellitus, thyroid cancer, Hair loss, heat intolerance or cold intolerance Skin Skin: No rash or changing moles Musc Musculoskeletal: Yes arthritis, gout and joint pain; No back problems or rheumatoid arthritis Cardio Cardiovascular: Yes heart disease, high blood pressure and heart stent; No murmur, pacemaker, atrial fibrillation, heart attack, palpitations, shortness of breat with exertion or chest pain Psych Psychiatric: No depression, anxiety or hearing voices Resp Respiratory: Yes shortness of breath, No sleep apnea, No cough, Yes COPD, No asthma, No emphysema and No wheezing Gastro Gastrointestinal: Yes abdominal pain, No nausea or vomiting, No diarrhea, No c onstipation, No blood in stool, Yes acid reflux, No hemorrhoids, No ulcers, No gallbladder problem and Yes black,tarry stools [place] Hematologic: No blood thinners, No blood disorders, No bleeding, Yes anemia and No blood clots Neuro Neurologic: No weakness Exam Const General: cooperative Orientation: alert and oriented x3 HENMT Head: normal to inspection Neck Neck: normal visual inspection and full ROM Chest Chest palpation & inspection: normal inspection of the chest Resp Effort & Inspection: normal respiratory effort Auscultation: clear to auscultation bilaterally Cardio Rate: regular rate Rhythm: regular rhythm GI Inspection: non-distended Palpation: soft Other: The patient has a ventral hernia in the superior epigastric area which is tender to deep palpation. She does not have any noted bulging in the right groin or pain Skin General: no rashes or lesions noted Neuro General: patient alert and patient oriented x3 Extrem General: full ROM Psych Appearance: grossly normal Mental Status: mental status grossly normal Assessment and Plan Assessment and Plan (1) Ventral incisional hernia: Status: Acute (2) Recurrent right femoral hernia: Status: Acute Plan - Dr. Luis Sotomayor MD: The patient has a ventral hernia containing fat and a CT scan also revealed a right femoral hernia containing small bowel. The patient has had an open right inguinal hernia repair in the past. I discussed robotic assisted laparoscopic right inguinal hernia repair with mesh. I discussed the risks of the procedure including the limited to bleeding, infection, injury to blood vessels or nerves in the right groin and chronic groin pain. I also explained the risk of injury to underlying bowel. I also discussed the possibility of converting to open surgery for the right side if necessary. Patient understands risks and is willing to proceed. I will also repair the ventral hernia with mesh at the same time. The patient has an extensive cardiac history and I would like her to have cardiac clearance before scheduling surgery. Luis Sotomayor MD Pager: [facility] [address] [place] [address], [address] [place] [address] Office: I have re-examined the patient. There are no clinical changes since date of exam.
[2020-08-01] MEDS: Lactated Ringers 1,000 ML 100 ML IV ×2 (09:25→11:45)
[2020-08-01] MEDS: Cefazolin 2 GM in 0.9% Normal Saline 100 ML IV (10:09)
--- NOTE | 2020-08-01 10:30 | HERN_PTH ---
PATIENT: GONZALO WELCH LOC: MS3 U#:[id number] AGE/SX: 84/F ROOM: [facility] RE08/01/[address]: Dr. Luis Sotomayor MD : [id number] BED: 1 DIS: 08/02/2020 SPEC #: [id number] RECD: 08/01/20 13:02 STATUS: GISELLE BRIAN #: [id number] DOLORES: 08/01/20 10:[address]: Luis Sotomayor DEPT: SURGICAL PATHOLOGY RECD BY: Camila Jo ENTERED: 08/01/20 13:11 SP TYPE: Hernia OTHR DR: Pete Butler DO Tissues: HERNIA Procedures: Surgery Specimen Level II HEADER OPERATION: Robotic assisted laparoscopic right femoral hernia repair PRE-OP DIAGNOSIS: Ventral incisional hernia recurrent right femoral TISSUE SUBMITTED: Ventral hernia sac MICROSCOPIC DIAGNOSIS Ventral hernia sac: Pieces of fibroadipose and fibroconnective tissue with focal chronic inflammation, clinically ventral hernia sac. SJ:grady 08/02/2020 MICROSCOPIC DESCRIPTION Slides are reviewed. GROSS DESCRIPTION Received in fixative is one container labeled with the patient's name and designated ventral hernia sac. The specimen consists of an irregular fragment of yellow-pink fibrofatty tissue measuring 9 x 5 x 1 cm. Serial sections do not reveal mass lesions. Urban [employer] sections are submitted in two cassettes. / AM:grady 08/01/20 TC:5 CPT: 15735
[2020-08-01] MEDS: Bupivacaine Mpf 0.5% 30 ML VIAL (11:50)
--- NOTE | 2020-08-01 12:04 | OP.PCM_ITS ---
Problems Associated Problem List Diagnoses (1) Ventral incisional hernia: (2) Recurrent femoral hernia of right side: Report of Operation Date of Procedure: 08/01/20 Pre-Operative Diagnosis: 1. Incisional ventral hernia 2. Recurrent right femoral hernia Post-Operative Diagnosis: Same Surgery/Procedure Performed:: 1. Ventral hernia repair with mesh 2. Robotic assisted laparoscopic recurrent right femoral hernia repair with mesh Specimen's removed: Ventral hernia sac Description of Procedure: Patient was brought to the operating room and general anesthesia was induced. The abdomen was prepped and draped in usual sterile fashion. An incision was made over the ventral hernia and deepened to the hernia sac. The hernia sac was dissected free and then elevated and opened. The contents were freed up and reduced into the abdomen. The hernia sac was then resected and sent for pathology. A port was then placed through the hernia and the abdomen was insufflated to 15 mmHg. Camera was placed into the abdomen and it was inspected. The patient appeared to have a history of right inguinal hernia repair with mesh laparoscopically. There was a large right femoral hernia. Under direct visualization a right lateral 8 mm port was placed as well as a left lateral 8 mm port. The robot was docked and the patient was placed in Trendelenburg position. The peritoneum was incised superior to the old mesh and dissected off of the old mesh until the femoral hernia was encountered. The femoral hernia sac was dissected free from the femoral vessels. The dissection was carried inferiorly. Next progrip mesh was unfolded and placed into the femoral area. It completely covered the hernia. The peritoneum was then reapproximated using running 3-0V lock suture. The peritoneum completely cover the mesh at the end of the procedure. The robot was then undocked and the air was desufflated from the abdomen. The ports were removed. The preperitoneal area of the ventral hernia was dissected free and the peritoneum was reapproximated. A small Ventralex ST mesh was placed in the preperitoneal space and sutured to the anterior fascia using 0 Prolene suture. The area was irrigated and suctioned dry and the ventral hernia was reapproximated using 0 Prolene sutures. The subcutaneous tissue was irrigated and suctioned dry and hemostasis was obtained using electrocautery. The incisions were injected with local anesthetic and closed with interrupted 4-0 Monocryl sutures and Steri- Strips and bandages. Patient tolerated the procedure well was brought to PACU in stable condition. Grafts/Implants Used: Progrip mesh in the right inguinal region, small Ventralex ST in ventral Admit VTE Documentation VTE Mechan Device Prophylaxis: SCD's
--- NOTE | 2020-08-01 12:21 | PN_ITS ---
Progress Note Patient has significant cardiac history and history of difficulty waking up after anesthesia and will be admitted for observation overnight following surgery. Luis Sotomayor MD Pager: [facility] [address] [place] [address] [address] [place] [address] Office:
--- NOTE | 2020-08-01 12:21 | PCM.PN.BLA ---
Progress Note Patient has significant cardiac history and history of difficulty waking up after anesthesia and will be admitted for observation overnight following surgery. Luis Sotomayor MD Pager: [facility] [address] [place] [address] [address] [place] [address] Office:
--- NOTE | 2020-08-01 12:23 | EX.PCM.DISCH ---
Discharge Instructions Procedure Hernia Diet Discharge Diet: Light diet - advance as tolerated Activity Discharge Activity: May Not Drive (for 2-3 days or while taking narcotic pain meds.) and May Shower (with the bandage in place 1-2 days after surgery.) Lifting Restrictions: 20 pounds for 8 weeks. Additional Activity Instructions:: Climbing stairs is fine, walking is encouraged. Sitting in bed may be uncomfortable. Sitting up using your lateral muscles (sitting up sideways) is usually more comfortable. Do not drive, work heavy equipment of sign legal documents for 24 hours. If your hernia repair was an ingunial repair an ice pack and/or athletic support can provide more comfort. Pain medications may cause nausea, you should typically eat light foods as you take your pain medications. Pain medications may also cause constipation. If you have difficulty with this, discuss with your doctor. Dressing / Incision Call your doctor if your incision/area has: Continuous Slow Oozing, Sudden Increased Bleeding, Increased Pain/ Swelling, Increased Redness and Foul Smelling Discharge Call your doctor if you observe: Fever of 101 or Higher Suture Line Care: Avoid Pulling/Pushing and Avoid Pinching/Bending Cleanse incision/area with: Soap & Water Additional Dressing/Incision Instructions:: Remove clear dressings in 2 days, remove steri strips in 7-10 days Follow Up Care Please Follow Up With: Luis Sotomayor MD When: Please call to schedule 2 week follow up appointment. [phone] Test Results: Test results from this visit will be discussed in further detail at your follow-up appointment, if applicable. Discharge Plan Admission Admit Date/Time: 08/01/20 12:21 Attending Provider: Luis Sotomayor Primary Care Provider: Pete Butler Discharge Orders/Prescriptions Prescriptions: New oxycodone 5 mg tablet 5 - 10 mg PO Q6H PRN (Reason: pain) 5 Days Qty: 30 RF: 0 Continued allopurinol 300 mg tablet 75 mg PO DAILY RF: 0 amlodipine 5 mg tablet 5 mg PO DAILY RF: 0 levothyroxine 125 mcg tablet 125 mcg PO DAILY RF: 0 albuterol sulfate 2.5 MG/3 ML solution for nebulization 2.5 mg inhalation Q6H PRN PRN (Reason: Sob &/Or Wheezing) RF: 0 magnesium 250 MG tablet 250 mg PO QODAY RF: 0 calcium carbonate-vitamin D3 1 EACH tablet 1 ea PO 1300 RF: 0 metoprolol tartrate 25 mg tablet 12.5 mg PO BID RF: 0 multivitamin Tablet 1 tab PO DAILY RF: 0 acetaminophen [Tylenol Extra Strength] 500 mg Tablet 500 - 1,000 mg PO DAILY PRN (Reason: Pain) RF: 0 spironolactone 25 mg tablet 25 mg PO DAILY RF: 0 pantoprazole [Protonix] 40 mg tablet,delayed release (DR/EC) 40 mg PO DAILY RF: 0 furosemide 40 mg tablet See Rx Instructions .ROUTE .COMPLEX Qty: 90 RF: 3 Referrals / Follow Up: Pete Butler DO [Primary Care Provider] - Disposition Disposition (needs filled in before D/C Order can be placed): Home, Self Care
--- NOTE | 2020-08-01 13:49 | SUR.PHASEI ---
Dr. Epstein to bedside for sign out from PACU. Recommends IS and duoneb treatment. Will continue to monitor. VSS. O2 92% with 2 L NC.
[2020-08-01] MEDS: Ipratropium/Albuterol Sulfate 3 ML AMPUL.NEB INHALATION (14:02)
[2020-08-01] MEDS: 0.9% Normal Saline 1,000 ML 60 ML IV (15:34)
[2020-08-01] MEDS: 0.9% Saline Lock 10 ML Syringe IV (17:13)
[2020-08-01] MEDS: Morphine 2 MG/ML Syringe IV (17:14)
[2020-08-01] MEDS: Acetaminophen 500 MG Tablet PO (20:29)
[2020-08-01] MEDS: Ondansetron 4 MG/2 ML Vial IV (20:30)
[2020-08-01] MEDS: Metoprolol Tartrate 25 MG Tablet 12.5 MG PO (20:49)
[2020-08-02 00:37] VITALS: BP 116/67; PULSE 54; RESP 18; TEMP 36.6; O2SAT 94
--- NOTE | 2020-08-02 00:40 | NURSING ---
This RN went into patients room to bladder scan patient, this RN explained to patient what it does and how it works. Patient tearful. Patient voiced concern and worry about needing to be catheterized. Bladder scanned for 605. SPACE CONTROL SUPERVISOR and this RN assisted patient to the bathroom and she was able to void 100mls of clear pale yellow urine. During previous attempt to void in the bathroom patient only voided 25mls. Patient very tearful about maybe needing a lora catheter/ being st. catheted. This RN voiced concern to patient about needing to void and attempting to try. Patient stated to this RN and SPACE CONTROL SUPERVISOR you girls are so mean to me and I just want to go home. Staff assisted patient back to the bed and fluids of choice offered. Will take the patient to the bathroom again at 0230, patient aware that this will happen. Patient explained to the RN the reason why she is so tearful and upset about maybe needing st. cathed is because she has had negative past experiences with catheters. parachute/combatant diver officer aware of current situation. Will continue to monitor.
--- NOTE | 2020-08-02 02:11 | NURSING ---
Patient assisted again to the bathroom, able to void an additional 125mls of urine plus a scant amount of incontinent urine in brief. Patient assisted from the bathroom and staff walked with patient to the fridge in the hallway, x1 with walker. Tolerated well. Will continue to monitor.
[2020-08-02 06:26] VITALS: BP 115/60; PULSE 55; RESP 18; TEMP 37; O2SAT 92
[2020-08-02] MEDS: Levothyroxine 125 MCG Tablet PO (06:28)
--- NOTE | 2020-08-02 08:19 | PCM.PN.SRG ---
Subjective Subjective Patient tolerated p.o., pain controlled Objective Data Objective Data Vital Signs: Vital Signs Temp Pulse Resp BP Pulse Ox 98.6 F 55 L 18 115/60 92 08/02/20 06:26 08/02/20 06:26 08/02/20 06:26 08/02/20 06:26 08/02/20 06:26 Oxygen Flow Rate (L/min) 2 Oxygen Delivery Method Room Air Weight: 216 lb 0.848 oz Body Mass Index (BMI) 40.8 Intake & Output: Intake and Output for Last 24 Hours 07/31/20 08/01/20 08/02/20 23:59 23:59 23:59 Intake Total 2040. / 250 / 250 Output Total 475 / 475 Balance -225 / -225 Lab / Micro Data Micro: Microbiology 07/31/20 11:20 Interface Orders SARS-CoV-2 Antigen (Rapid) - Final Physical Exam Narrative Abdomen: Soft, nondistended, mild tenderness near incisions, dressings clean dry and intact Assessment & Plan Assessment/Plan (1) S/P hernia surgery: PLAN: Patient is doing well tolerating diet, pain control, ambulating. Okay to DC home Patient was recently change to Protonix from omeprazole after EGD she states she still having some burning in her throat. Will start Carafate Janis Martinez M.D. Pager: [phone] [facility] [address] [place] [address], [facility], [address] [place] [id number] Office: [phone]
[2020-08-02] MEDS: Multivitamins,Therapeutic Tablet 1 TABLET PO (08:55)
[2020-08-02] MEDS: Spironolactone 25 MG Tablet PO (08:55)
[2020-08-02] MEDS: Allopurinol 300 MG Tablet PO (08:55)
[2020-08-02] MEDS: amLODIPine 5 MG Tablet PO (08:55)
[2020-08-02] MEDS: Acetaminophen 500 MG Tablet PO (08:57)
[2020-08-02] MEDS: Pantoprazole Sodium 40 MG Tablet PO (08:57)
[2020-08-02] MEDS: Ondansetron 4 MG/2 ML Vial IV (09:07)
--- NOTE | 2020-08-02 13:55 | PHA.DC.MC ---
Pharmacy Service has performed discharge medication reconciliation and counseling for this patient. 1. OXYCODONE 5-10MG PO Q6H PRN PAIN 2. SUCRALFATE 1GM PO 4X/DAY The patient's discharge medication list was reviewed for discrepancies and discrepancies were resolved. Home Medications amlodipine 5 mg tablet 5 mg PO DAILY 01/25/18 albuterol sulfate 2.5 mg INHALATION Q6H PRN PRN 02/07/18 levothyroxine 125 mcg tablet 125 mcg PO DAILY 05/05/18 calcium carbonate-vitamin D3 1 ea PO 1300 01/04/20 magnesium 250 mg PO QODAY 01/04/20 acetaminophen [Tylenol Extra Strength] 500 - 1,000 mg PO DAILY PRN 06/25/20 multivitamin 1 tab PO DAILY 06/25/20 allopurinol 300 mg tablet 75 mg PO DAILY tab 07/10/20 metoprolol tartrate 25 mg tablet 12.5 mg PO BID tab 07/10/20 pantoprazole [Protonix] 40 mg PO DAILY 07/25/20 spironolactone 25 mg PO DAILY 07/25/20 furosemide 40 mg tablet See Rx Instructions .ROUTE .COMPLEX #90 tablet 07/30/20 oxycodone 5 - 10 mg PO Q6H PRN 5 Days #30 tab 08/01/20 sucralfate 1 g PO 4X/DAY #56 tab 08/02/20 The patient was counseled on the following discharge medications and changes in medications for homegoing were reviewed. The Reason for Use, instructions for use, and potential side effects were reviewed for all new medications. The patient's questions regarding all of their medications were answered. The patient was able to verbally demonstrate an understanding of their discharge medications.
[2020-08-02 14:00] VITALS: BP 111/70; BP 139/77; PULSE 58; PULSE 66; RESP 16; TEMP 36.8; TEMP 37.2; O2SAT 91; O2SAT 95
== END 2020-08-02 14:56 | disposition home or self-care (01) ==
LOC: SDC 12:26 → MS3 12:26
PROVIDERS: Anesthesiology; Admitting Provider Surgery; PCP Preventive Medicine Occupational Medicine; Referring Provider Surgery; Visit Provider Surgery
PROC: (CPT 49560; principal; 2020-08-01 10:10)
DX: K43.2 Incisional hernia without obstruction or gangrene (principal); K41.90 Unilateral femoral hernia, without obstruction or gangrene, not specified as recurrent; M19.90 Unspecified osteoarthritis, unspecified site; I25.10 Atherosclerotic heart disease of native coronary artery without angina pectoris; K21.9 Gastro-esophageal reflux disease without esophagitis; I10 Essential (primary) hypertension; M10.9 Gout, unspecified; I27.21 Secondary pulmonary arterial hypertension; L40.9 Psoriasis, unspecified; K44.9 Diaphragmatic hernia without obstruction or gangrene; E03.9 Hypothyroidism, unspecified; E66.9 Obesity, unspecified; Z68.41 Body mass index [BMI] 40.0-44.9, adult; Z79.899 Other long term (current) drug therapy; Z95.2 Presence of prosthetic heart valve
CPT/HCPCS: 49560; 49568; 49659; S2900; 36415; 84443; 87426; 88302; 94640; 96374; 96375; 96376; 99218; C9803; J7030; J7120; A4216; C1781; G0378; G0379; J2405

== ENCOUNTER → 2020-08-19 15:36 | Outpatient (CLI) | payer MEDICARE, OTHER, SELFPAY ==
[2020-08-01 14:33] VITALS: BMI 40.8
== END ==
PROVIDERS: PCP Preventive Medicine Occupational Medicine; Referring Provider Surgery; Visit Provider Surgery
DX: Z98.890 Other specified postprocedural states (principal); Z87.19 Personal history of other diseases of the digestive system
CPT/HCPCS: 87070; 87075; 87205

== ENCOUNTER 2021-05-07 12:56 | Outpatient (CLI) | payer MEDICARE, OTHER, SELFPAY ==
--- NOTE | 2021-05-07 12:58 | ECHOD_ITS ---
Reason For Study: VALVE REPLACEMENT EVAL Procedure This was a 2D Doppler, Color Flow transthoracic echocardiogram. Exam performed in department. Left Ventricle Normal LV size. Left ventricular systolic function is normal. The estimated ejection fraction is 54 %. No regional wall motion abnormalities noted. Right Ventricle Normal RV size. Normal systolic function. Atria Normal left atrium. Normal right atrium. Mitral Valve Mild diffuse mitral valve thickening. Mild (1+) eccentric mitral valve insufficiency. Tricuspid Valve Normal tricuspid valve. Mild (1+) tricuspid valve insufficiency. Pulmonary artery systolic pressure is 36 mmHg. Aortic Valve Peak aortic valve gradient 21 mmHg. Mean aortic valve gradient 12 mmHg. Stable appearing bioprosthetic aortic valve apparatus. Pulmonic Valve Normal pulmonic valve. Great Vessels Normal aortic root. The pulmonary artery is normal size. Normal inferior vena cava. Pericardium/Pleural No pericardial effusion. MMode/2D Measurements & Calculations LVIDd: 4.3 cm IVSd: 1.2 cm LVOT diam: 2.0 cm LVIDs: 3.0 cm LVPWd: 1.1 cm LVOT area: 3.2 cm2 RVDd: 3.4 cm FS: 30.8 % Ao root diam: 3.5 cm LAV(MOD-bp): 27.2 ml LVAd ap4: 23.9 cm2 LAV(MOD-bp) Indexed: 13.8 ml/m2 LVLd ap4: 6.7 cm LAV(MOD-sp2): 28.0 ml EDV(MOD-sp4): 70.3 ml LAV(MOD-sp4): 24.9 ml EDV(sp4-el): 72.7 ml LVAs ap4: 15.1 cm2 LVLs ap4: 6.0 cm ESV(MOD-sp4): 30.6 ml ESV(sp4-el): 32.0 ml EF(MOD-sp4): 56.5 % EF(sp4-el): 56.0 % SV(MOD-sp4): 39.7 ml SV(sp4-el): 40.7 ml LA A4 area: 11.2 cm2 LA dimension(2D): 4.1 cm RA A4 area: 10.2 cm2 Time Measurements MV dec time: 0.22 sec Doppler Measurements & Calculations MV E max benjie: 55.2 cm/sec Lat Peak E' Benjie: 6.6 cm/sec Med Peak E' Benjie: 5.2 cm/sec MV A max benjie: 82.5 cm/sec E/E' lat: 8.4 E/E' med: 10.7 MV E/A: 0.67 Ao V2 max: 229.7 cm/sec LV V1 max: 78.1 cm/sec SV(LVOT): 60.5 ml Ao max P.2 mmHg LV V1 max P.4 mmHg Ao V2 mean: 163.3 cm/sec LV V1 mean P.5 mmHg Ao mean P.2 mmHg LV V1 mean: 59.2 cm/sec Ao V2 VTI: 51.2 cm LV V1 VTI: 19.1 cm RAJIV(I,D): 1.2 cm2 RAJIV(V,D): 1.1 cm2 PA V2 max: 101.6 cm/sec TR max benjie: 280.2 cm/sec TR max P.4 mmHg ECHO/Echo Complete Interpretation Summary Normal LV size. Left ventricular systolic function is normal. Pulmonary artery systolic pressure is 36 mmHg. Mean aortic valve gradient 12 mmHg. The estimated ejection fraction is 54 %. Stable appearing bioprosthetic aortic valve apparatus. Ordering Physician: Hernan Luna Referring Physician: DIVINA SMART Performed By: Aliza De La Vega RDCS
== END 2021-05-07 23:59 | disposition home or self-care (01) ==
LOC: CVS 12:57
PROVIDERS: PCP Preventive Medicine Occupational Medicine; Referring Provider Internal Medicine Cardiovascular Disease; Visit Provider Internal Medicine Cardiovascular Disease
DX: I35.2 Nonrheumatic aortic (valve) stenosis with insufficiency (principal)
CPT/HCPCS: 93306

== ENCOUNTER 2021-07-09 13:43 | Emergency (ER) | payer MEDICARE, OTHER, SELFPAY ==
[2021-07-09 13:44] VITALS: BP 190/94; PULSE 63; RESP 18; TEMP 36.8; O2SAT 95; BMI 39.6
--- NOTE | 2021-07-09 14:25 | EKG12_ITS ---
Test Reason : GEN Blood Pressure : / mmHG Vent. Rate : 055 BPM Atrial Rate : 055 BPM P-R Int : 152 ms QRS Dur : 118 ms QT Int : 474 ms P-R-T Axes : 056 045 128 degrees QTc Int : 453 ms Sinus bradycardia Low voltage QRS Septal infarct , age undetermined ST & T wave abnormality, consider lateral ischemia Abnormal ECG Confirmed by WENDY SERVIN, CHRIS ([id number]), avid editor YOANNA WOODS ([id number]) on 07/11/2021 1:48:21 PM Referred By: DARRICK Confirmed By:CRESCENCIO NGUYEN MD
--- NOTE | 2021-07-09 14:26 | EDS_ITS ---
HPI History of Present Illness Chief Complaint: General Illness Informant: patient Onset/Context/Timing Onset: Today Context: Gradual Onset Timing: Continuous Quality: don't feel good Location: all over Current Severity: Moderate Maximum Severity: Moderate Worsened by: nothing Relieved by: nothing Associated Symptoms Associated Symptoms: some phlegm. chronic minor unchgd cough. mild sob earlier. Narrative Narrative: Patient presents and she did not feel well. She has albuterol at home for a little bit of COPD and she felt a little short of breath earlier but does not know if she was wheezing or not, so she did not albuterol treatment, and it made her breathing better. She states before and after this, she has been checking her blood pressure off and on all day, she states it has been up and down; at 1 point systolic was 100, at another it was in the 140s, and here it is 190. She states that she is really scared about this, and also states she was really scared because at 1 point she checked her pulse and it was 84. She denies most other focal review of systems except for edema in her legs which is chronic and unchanged, she takes 2 different water pills for that and does not know if she has congestive heart failure or not. She does follow with cardiology here. [facility] Medical History Acute respiratory failure with hypoxemia Anemia Arthritis Blackout Body mass index (BMI) 35 or more Cancer Cardiology follow-up encounter COPD (chronic obstructive pulmonary disease) COPD exacerbation Demand ischemia Essential hypertension Femoral hernia of right side Gastric reflux GERD (gastroesophageal reflux disease) Gout Hiatal hernia with gastroesophageal reflux History of eye disorder History of GI bleed Hoarseness Hypothyroid Hypothyroidism Non-ischemic cardiomyopathy Non-smoker Nonrheumatic aortic (valve) stenosis with insufficiency Nonrheumatic mitral (valve) insufficiency Obesity Psoriasis Pulmonary edema Restless legs Seroma after procedure Severe sepsis Shortness of breath on exertion Skin cancer Thyroid disease Vertigo Wears dentures Wears glasses Home Medications albuterol sulfate 2.5 mg INHALATION Q6H PRN PRN 02/07/18 [History Last Taken 06/24/20] levothyroxine 125 mcg tablet 125 mcg PO DAILY 05/05/18 [History Last Taken 06/25/20] metoprolol tartrate 25 mg tablet 12.5 mg PO BID tab 07/10/20 [History Last Taken Unknown] furosemide 40 mg tablet See Rx Instructions .ROUTE .COMPLEX #90 tablet 07/30/20 [Rx Last Taken Unknown] spironolactone 25 mg tablet 25 mg PO DAILY #90 tab 01/24/21 [Rx Last Taken Unknown] losartan 50 mg tablet 50 mg PO DAILY #90 tab 05/01/21 [Rx Last Taken Unknown] omeprazole 40 mg capsule,delayed release 40 mg PO DAILY cap 05/01/21 [History Last Taken Unknown] levofloxacin 750 mg PO DAILY #4 tab 07/09/21 [Rx Last Taken Unknown] Allergy/AdvReac Type Severity Reaction Status Date / Time No Known Allergies Allergy Verified 07/09/21 13:46 Family History Mother Hypertension Diabetes Father Hypertension Heart disease CVA (cerebral vascular accident) Cancer Brother Cancer Diabetes Heart disease CVA (cerebral vascular accident) Brother CVA (cerebral vascular accident) Surgical History History of aortic valve replacement with bioprosthetic valve (06/15/17) History of bladder suspension procedure History of esophagogastroduodenoscopy (EGD) History of hysterectomy History of incisional hernia repair History of left heart catheterization (2011) History of Ronen fundoplication (10/21/16) History of partial colectomy History of repair of hiatal hernia (10/21/16) Hx of colonoscopy Social History Smoking Status: Never smoker second hand exposure: No alcohol intake: never substance use type: does not use caffeine: Yes Type: coffee Number of servings: 1 what type of physical activity do you participate in: none frequency: does not exercise ROS ROS ED Constitutional Constitutional ED: Reports as per HPI and malaise; Denies body ache(s), chills, fever(s), weight gain or weight loss Eyes Eyes: Denies change in vision or diplopia ENT ENT ED: Denies rhinorrhea or sore throat Cardiovascular Cardiovascular: Reports pedal edema; Denies chest pain or palpitations Respiratory/Chest Respiratory/Chest: Reports as per HPI, cough and dyspnea Gastrointestinal Gastrointestinal: Denies abdominal pain, diarrhea, nausea or vomiting Genitourinary Genitourinary ED: Denies dysuria or hematuria Musculoskeletal Musculoskeletal: Denies back pain or neck pain Integumentary Denies abscess or rash Neurologic Neurologic: Denies headache(s), paresthesias or weakness Psychiatric Psychiatric: Denies anxiety or suicidal thoughts EXAM Physical Exam Const Vital Signs: 07/09/21 13:44 07/09/21 14:32 07/09/21 15:44 Temperature 98.2 F Temperature Source Temporal Pulse Rate 63 54 L Respiratory Rate 18 18 Respiratory Effort Normal Non-Labored Respiratory Pattern Normal Blood Pressure 190/94 H 143/89 H Blood Pressure Mean 126 107 Pulse Ox 95 97 Oxygen Delivery Method Room Air Room Air Positive well nourished, well developed and obese General Appearance ED: well developed and NAD Nutritional Appearance: obese HEENT Reports moist mucous membranes normocephalic and atraumatic Eyes PERRL and EOMs intact bilaterally Neck full ROM and supple Resp normal respiratory effort and clear to auscultation bilaterally Cardio regular rate, regular rhythm and no murmurs GI non-tender and non-distended Auscultation: normoactive bowel sounds Palpation: soft Back/Spine no CVA tenderness General Back: other FROM Extremity normal to inspection General Extremety ED: Yes edema; Negative for pulses abnormal or tenderness General Extremity: edema bilateral lower extremity Details: moderate (Symmetric with signs of chronic stasis dermatitis, nontender, no abscess or acute infection); Negative for pulses abnormal Neuro oriented x3, CN's II-XII intact bilaterally and no sensory deficits noted Sensorium / Orientation: awake and alert Motor Exam: strength 5/5 throughout Psych denies suicidal ideation Mood & Affect: anxious Skin no rashes or lesions noted and no wounds MDM MDM MDM Narrative Medical decision making narrative: Labs show the patient is mildly dehydrated but they are otherwise unremarkable. Her x-ray shows an early right basilar pneumonia, her EKG shows no acute injury, and her troponin is negative after having symptoms all day, I do not think we need another emergent measurement. Her rapid COVID and influenza are both negative. She had an echo in April, it shows a normal EF and normal LV systolic function and no evidence of congestive heart failure. She clinically does not sound like she is in acute heart failure. Therefore, she was given some IV fluids for the prerenal azotemia. We monitored her blood pressure. Without specific treatment it was 155/81; patient was ambulatory without assistance, she appeared to be dyspneic. She improved quickly with resting. The brother who is with her states this is her baseline and that is fairly typical. She is oxygenating well. Her blood pressure has been resting at 143/89. I start her on Levaquin, will treat her as an outpatient, reassured her, she can use her albuterol as needed, and I advised close outpatient follow-up. Lab Data Attestation: I reviewed the patient's lab results. Labs: Laboratory Results - last 24 hr 07/09/21 07/09/21 07/09/21 13:53 14:35 14:35 WBC 7.2 RBC 4.65 Hgb 14.1 Hct 43.7 MCV 94.0 MCH 30.3 MCHC 32.3 RDW Std Deviation 47.1 H RDW Coeff of Fabricio 13.6 Plt Count 161 MPV 11.9 Immature Gran % (Auto) 0.300 Neut % (Auto) 70.2 H Lymph % (Auto) 19.1 [place] % (Auto) 8.3 Eos % (Auto) 1.5 Baso % (Auto) 0.6 Absolute Neuts (auto) 5.1 Absolute Lymphs (auto) 1.38 Nucleated RBC % 0 Sodium 139 Potassium 4.7 Chloride 104 Carbon Dioxide 30.0 Anion Gap 5 BUN 28 H Creatinine 1.24 H Estim Creat Clear Calc 25.03 Est GFR (MDRD) Af Amer 53 L Est GFR (MDRD) Non-Af 44 L BUN/Creatinine Ratio 22.6 H Glucose 108 H Calcium 9.2 Troponin I High Sens 18 B-Natriuretic Peptide Urine Color Yellow Urine Clarity Clear Urine pH 7.0 Ur Specific Gattman 1.005 Urine Protein Negative Urine Glucose (UA) Normal Urine Ketones Negative Urine Occult Blood Negative Urine Nitrite Negative Urine Bilirubin Negative Urine Urobilinogen Normal Ur Leukocyte Esterase Negative Urine RBC 0 SEEN Urine WBC 0 SEEN Ur Squamous Epith Cells 0 SEEN Urine Bacteria 0 SEEN Urine Mucus 0 SEEN 07/09/21 14:35 WBC RBC Hgb Hct MCV MCH MCHC RDW Std Deviation RDW Coeff of Fabricio Plt Count MPV Immature Gran % (Auto) Neut % (Auto) Lymph % (Auto) [place] % (Auto) Eos % (Auto) Baso % (Auto) Absolute Neuts (auto) Absolute Lymphs (auto) Nucleated RBC % Sodium Potassium Chloride Carbon Dioxide Anion Gap BUN Creatinine Estim Creat Clear Calc Est GFR (MDRD) Af Amer Est GFR (MDRD) Non-Af BUN/Creatinine Ratio Glucose Calcium Troponin I High Sens B-Natriuretic Peptide 178.4 H Urine Color Urine Clarity Urine pH Ur Specific Gattman Urine Protein Urine Glucose (UA) Urine Ketones Urine Occult Blood Urine Nitrite Urine Bilirubin Urine Urobilinogen Ur Leukocyte Esterase Urine RBC Urine WBC Ur Squamous Epith Cells Urine Bacteria Urine Mucus Radiography Chest X-Ray - ED: 1 View, Read by ED Physician, Chronic Changes and Right Infiltrate Diagnostic Testing: Clinical Impression(s) from Imaging Studies Chest X-Ray 07/09/21 14:50 IMPRESSION: Right basilar infiltrate with small right pleural effusion. Electronically Signed: Anthony Talley MD at 15:27 EDT , Rhythm Strip Rhythm Strip: Sinus Rhythm Rate: 55 Ectopy: None EKG Initial EKG: Attestation: I personally reviewed and interpreted this EKG as follows: Interpretation: Sinus Rhythm Comments: Anteroseptal Q waves. Normal axis. Prior: Changed (Hulbert is normal, it was left last year) Discharge Plan Triage Chief Complaint: General Illness ED Provider: Norm Silverman Dx/Rx/DC Orders Clinical Impression: Pneumonia, Episode of hypertension, Dehydration, mild Instructions: ED Dehydration (Adult), ED Pneumonia (Adult) Prescriptions: New levofloxacin 750 mg tablet 750 mg PO DAILY Qty: 4 RF: 0 Held furosemide 40 mg tablet See Rx Instructions .ROUTE .COMPLEX Qty: 90 RF: 3 Hold Instructions: hold your next single dose of Lasix No Action levothyroxine 125 mcg tablet 125 mcg PO DAILY RF: 0 omeprazole 40 mg capsule,delayed release(DR/EC) 40 mg PO DAILY RF: 0 losartan 50 mg tablet 50 mg PO DAILY Qty: 90 RF: 3 albuterol sulfate 2.5 MG/3 ML solution for nebulization 2.5 mg inhalation Q6H PRN PRN (Reason: Sob &/Or Wheezing) RF: 0 metoprolol tartrate 25 mg tablet 12.5 mg PO BID RF: 0 spironolactone 25 mg tablet 25 mg PO DAILY Qty: 90 RF: 3 Primary Care Provider: Pete Butler Referrals: Pete Butler DO [Primary Care Provider] - 3-5 Days Disposition Disposition: Home, Self Care
[2021-07-09 14:42] LABS: Absolute Lymphocyte Count 1.38 X10^3/uL (0.83-4.51); Absolute Neutrophil Count 5.1 X10^3/uL (2.0-7.7); Basophil# 0.04 X10^3/uL; Basophil% 0.6 % (0-1); Eosinophil# 0.11 X10^3/uL; Eosinophils% 1.5 % (0-5); Hematocrit 43.7 % (37-47); Hemoglobin 14.1 g/dL (12.0-15.0); Lymphocyte # 1.38 X10^3/ul (0.83-4.51); Lymphocyte % 19.1 % (19-41); Mean Corp Hgb Conc 32.3 g/dL (32-36); Mean Corpuscular Hgb 30.3 pg (27.0-32.0); Mean Platelet Vol. 11.9 fl (6.2-12.0); Monocyte% 8.3 % (0-10); NRBC Flagged by Analyzer 0 % (0-5); Neutrophil # 5.08 X10^3/uL (2.7-7.7); Neutrophil % 70.2 % (47-70); Platelet Count 161 K/mm3 (150-450); RBC Distribution Width CV 13.6 % (11.6-14.6); RBC Distribution Width SD 47.1 fl (35.1-43.9); Red Blood Count 4.65 M/mm3 (4.2-5.4); White Blood Count 7.2 K/mm3 (4.4-11.0)
--- NOTE | 2021-07-09 14:50 | RAD_ITS ---
STUDY: X-RAY CHEST REASON FOR EXAM: Female, 85 years old. 2 day history of shortness of breath and cough. TECHNIQUE: Single AP portable view of the chest. COMPARISON: Comparison is made with prior study dated 06/25/2020. FINDINGS: EKG electrodes are seen. There is evidence of elevation of the right hemidiaphragm with small right pleural effusion and right basilar infiltrate. Sternal cerclage wires are present from a prior sternotomy. The patient is status post mitral valve replacement. Mild cardiomegaly. Normal mediastinum and sebastián. Normal visualized pulmonary arteries. There is atherosclerotic tortuosity of the aortic arch and descending thoracic aorta. There are diffuse degenerative changes of the visualized thoracic spine. Normal visualized ribs, clavicles, and shoulders. There is no demonstrated abnormality of the visualized soft tissue structures of the upper abdomen. RAD/Chest 1 View (Portable) IMPRESSION: Right basilar infiltrate with small right pleural effusion. Electronically Signed: Anthony Talley MD at 15:27 EDT ,
[2021-07-09 14:58] LABS: Anion Gap 5 (5-15); BUN 28 mg/dL (7-18); BUN/Creat Ratio 22.6 RATIO (10-20); Calcium,Total 9.2 mg/dL (8.5-10.1); Chloride 104 mmol/L (98-107); Creatinine, Serum 1.24 mg/dL (0.55-1.02); EST Glomerular Filtration Rate 44 mL/min (>60); Est Glom Filt Rate - Afr Amer 53 mL/min (>60); Estimated Creatinine Clearance 25.03 ml/min; Glucose 108 mg/dL (74-106); Potassium 4.7 mmol/L (3.5-5.1); Sodium Level 139 mmol/L (136-145); Troponin-I HS 18 pg/mL (3.0-54.0)
[2021-07-09 15:15] LABS: Bacteria 0 SEEN /hpf (None Seen); Mucous, Urine 0 SEEN /hpf (<or=2+); Red Blood Cells-Urine 0 SEEN /hpf (0-5); Squamous Epithelial Cells - UA 0 SEEN /hpf (5-10); White Blood Cells 0 SEEN /hpf (0-5)
[2021-07-09 15:42] LABS: Color, Urine Yellow (Yellow); Glucose, Dipstick Normal (Normal); Ketone-Dipstick Negative (Negative); Leukocyte Esterase-Dipstick Negative /ul (Negative); Nitrite-Dipstick Negative (Negative); Occult Blood-Urine Negative /ul (Negative); Protein-Dipstick Negative (Negative); Specific Gravity, Urine 1.005 (1.002-1.030); Urine Bilirubin Dipstick Negative (Negative); Urine Clarity Clear (Clear); Urine Urobilinogen Normal (Normal)
[2021-07-09 15:44] VITALS: BP 143/89; PULSE 54; RESP 18; O2SAT 97
[2021-07-09 16:09] LABS: BNP,B-Type NATRIURETIC PEPTIDE 178.4 pg/mL (0-100)
[2021-07-09 16:38] VITALS: RESP 18
[2021-07-09] MEDS: levoFLOXacin 750 MG Tablet PO (16:58)
== END 2021-07-09 17:17 | disposition home or self-care (01) ==
PROVIDERS: Emergency Provider Emergency Medicine; PCP Preventive Medicine Occupational Medicine; Visit Provider Emergency Medicine
DX: J18.9 Pneumonia, unspecified organism (principal); J44.0 Chronic obstructive pulmonary disease with (acute) lower respiratory infection; I42.8 Other cardiomyopathies; I10 Essential (primary) hypertension; E86.0 Dehydration; E66.9 Obesity, unspecified; K21.9 Gastro-esophageal reflux disease without esophagitis; E03.9 Hypothyroidism, unspecified; Z79.899 Other long term (current) drug therapy
CPT/HCPCS: 71045; 80048; 81001; 83880; 84484; 85025; 87428; 93005; 99285; J7030; A4216

== ENCOUNTER 2021-07-26 14:09 | Emergency (ER) | payer MEDICARE, OTHER, SELFPAY ==
[2021-07-26 14:10] VITALS: BP 168/76; PULSE 50; RESP 14; TEMP 36.1; O2SAT 100; BMI 40.4
--- NOTE | 2021-07-26 14:56 | EKG12_ITS ---
Test Reason : HYPERTENSION Blood Pressure : / mmHG Vent. Rate : 051 BPM Atrial Rate : 051 BPM P-R Int : 150 ms QRS Dur : 126 ms QT Int : 488 ms P-R-T Axes : 057 038 107 degrees QTc Int : 449 ms Sinus bradycardia Left bundle branch block Abnormal ECG Confirmed by LENORA SERVIN, JONATHAN ([id number]), photography editor YOANNA WOODS ([id number]) on 07/28/2021 12:46:54 PM Referred By: ALANA Confirmed By:JONATHAN COOLEY MD
--- NOTE | 2021-07-26 14:57 | ED.VIS.LOWEX ---
HPI History of Present Illness Chief Complaint: Edema Narrative Narrative: 85-year-old female presenting with lower extremity swelling. She states this started yesterday. She states that she thought it would go away if she will elevated her legs. It did not. She states she was seen in urgent care and they sent her to the emergency room. She states that for the last 15 minutes she has been feeling rather anxious but denies any chest pain. She feels this is because she is in the emergency room. She states that as far as cardiac history she does she has had an aortic valve replacement. She is not anticoagulated. No fevers chills, cough. She states she is just getting over pneumonia that she was treated for last week. She states she took her last pill a couple days ago. I do not [facility] Medical History Acute respiratory failure with hypoxemia Anemia Arthritis Blackout Body mass index (BMI) 35 or more Cancer Cardiology follow-up encounter COPD (chronic obstructive pulmonary disease) COPD exacerbation Demand ischemia Essential hypertension Femoral hernia of right side Gastric reflux GERD (gastroesophageal reflux disease) Gout Hiatal hernia with gastroesophageal reflux History of eye disorder History of GI bleed Hoarseness Hypothyroid Hypothyroidism Non-ischemic cardiomyopathy Non-smoker Nonrheumatic aortic (valve) stenosis with insufficiency Nonrheumatic mitral (valve) insufficiency Obesity Psoriasis Pulmonary edema Restless legs Seroma after procedure Severe sepsis Shortness of breath on exertion Skin cancer Thyroid disease Vertigo Wears dentures Wears glasses Home Medications albuterol sulfate 2.5 mg inhalation Q6H PRN PRN Sob &/Or Wheezing 02/07/18 [History Last Taken 06/24/20] levothyroxine 125 mcg tablet 125 mcg PO DAILY thyroid 05/05/18 [History Last Taken 06/25/20] metoprolol tartrate 25 mg tablet 12.5 mg PO BID blood pressure 07/10/20 [History Last Taken Unknown] furosemide 40 mg tablet See Rx Instructions .Route .COMPLEX #90 TABLETS 07/30/20 [Rx Last Taken Unknown] spironolactone 25 mg tablet 25 mg PO DAILY blood pressure #90 tabs 01/24/21 [Rx Last Taken Unknown] losartan 50 mg tablet 50 mg PO DAILY #90 tabs 05/01/21 [Rx Last Taken Unknown] omeprazole 40 mg capsule,delayed release 40 mg PO DAILY 05/01/21 [History Last Taken Unknown] Allergy/AdvReac Type Severity Reaction Status Date / Time No Known Allergies Allergy Verified 07/26/21 14:10 Family History Mother Hypertension Diabetes Father Hypertension Heart disease CVA (cerebral vascular accident) Cancer Brother Cancer Diabetes Heart disease CVA (cerebral vascular accident) Brother CVA (cerebral vascular accident) Surgical History History of aortic valve replacement with bioprosthetic valve (06/15/17) History of bladder suspension procedure History of esophagogastroduodenoscopy (EGD) History of hysterectomy History of incisional hernia repair History of left heart catheterization (2011) History of Ronen fundoplication (10/21/16) History of partial colectomy History of repair of hiatal hernia (10/21/16) Hx of colonoscopy Social History Smoking Status: Never smoker second hand exposure: No alcohol intake: never substance use type: does not use caffeine: Yes Type: coffee Number of servings: 1 what type of physical activity do you participate in: none frequency: does not exercise ROS ROS ED Constitutional Constitutional ED: Denies chills or fever(s) Eyes Eyes: Denies change in vision or diplopia ENT ENT ED: Denies rhinorrhea or sore throat Cardiovascular Cardiovascular: Reports chest pain Respiratory/Chest Respiratory/Chest: Reports dyspnea and dyspnea on exertion Gastrointestinal Gastrointestinal: Denies abdominal pain or constipation Genitourinary Genitourinary ED: Denies dysuria or hematuria Musculoskeletal Musculoskeletal: Reports other Details: Leg swelling ; Denies arthralgias or back pain Integumentary Denies abscess or Abrasions Neurologic Neurologic: Denies headache(s) or paresthesias Psychiatric Psychiatric: Denies anxiety or depression EXAM Physical Exam Const Vital Signs: 07/26/21 14:10 07/26/21 14:21 07/26/21 15:05 Temperature 96.9 F L Temperature Source Temporal Pulse Rate 50 L Respiratory Rate 14 Respiratory Effort Short of Breath Blood Pressure 168/76 H Blood Pressure Mean 106 Pulse Ox 100 Oxygen Delivery Method Room Air Room Air Positive well nourished and obese General Appearance ED: NAD Nutritional Appearance: obese HEENT Reports moist mucous membranes normocephalic and atraumatic Chest Wall inspection of chest normal Resp normal respiratory effort, no retractions and clear to auscultation bilaterally Auscultation: Negative for rales, rhonchi or wheezes Cardio regular rhythm Rate: bradycardia GI non-tender Extremity General Extremety ED: Yes edema General Extremity: edema bilateral Neuro oriented x3 and CN's II-XII intact bilaterally Sensorium / Orientation: alert, oriented to person, oriented to place and oriented to time Psych mental status grossly normal MDM MDM MDM Narrative Medical decision making narrative: Patient presenting with lower extremity swelling which has worsened. He was recently treated for pneumonia with Levaquin and is taken her antibiotics. She has been taking her Lasix and spironolactone as well. I did obtain blood work and her CBC and BMP are within normal limits. On her previous visit she was dehydrated and this is no longer the case. High-sensitivity troponin is 34 but she is not having any chest pain. BNP is slightly elevated over previous at 324.8 however her chest x-ray on my interpretation shows no acute process and chest x-ray looks better than it did previously. EKG is sinus with a ventricular rate of 51 bpm with left bundle branch block noted. Due to the time of day I do not have ultrasound available to ultrasound her legs however I did offer this tomorrow if she wanted to come in as an outpatient but she states that she cannot come tomorrow because of zoroastrianism. She states he does have an office appointment with Dr. Finnegan on Wednesday and I recommended that she make this follow-up and if she needs outpatient DVT studies at that point he can order them. She was given return precautions. Patient discharged in stable condition. Impression: 1. lower extremity edema Lab Data Attestation: I reviewed the patient's lab results. Labs: Laboratory Results - last 24 hr 07/26/21 07/26/21 07/26/21 15:03 15:03 15:03 WBC 8.2 RBC 4.50 Hgb 13.8 Hct 41.7 MCV 92.7 MCH 30.7 MCHC 33.1 RDW Std Deviation 45.7 H RDW Coeff of Fabricio 13.5 Plt Count 164 MPV 12.3 H Immature Gran % (Auto) 0.400 Neut % (Auto) 72.8 H Lymph % (Auto) 18.0 L [place] % (Auto) 7.2 Eos % (Auto) 1.0 Baso % (Auto) 0.6 Absolute Neuts (auto) 6.0 Absolute Lymphs (auto) 1.48 Nucleated RBC % 0 Sodium 139 Potassium 4.5 Chloride 103 Carbon Dioxide 30.0 Anion Gap 6 BUN 18 Creatinine 0.99 Estim Creat Clear Calc 31.35 Est GFR (MDRD) Af Amer 68 Est GFR (MDRD) Non-Af 57 L BUN/Creatinine Ratio 18.2 Glucose 109 H Calcium 9.7 Troponin I High Sens 34 B-Natriuretic Peptide 324.8 H Radiography Diagnostic Testing: Clinical Impression(s) from Imaging Studies Chest X-Ray 07/26/21 15:23 IMPRESSION: Atelectatic changes in right lung base. No new infiltrate is seen. Electronically Signed: Mark Song MD at 15:45 EDT Reading Location ID and State: [facility] / [place] Tel , Service support , Discharge Plan Triage Chief Complaint: Edema ED Provider: David Penn Dx/Rx/DC Orders Instructions: ED Lymphedema Prescriptions: No Action levothyroxine 125 mcg tablet 125 mcg PO DAILY omeprazole 40 mg capsule,delayed release(DR/EC) 40 mg PO DAILY Label Comments: take 1 capsule by mouth once daily losartan 50 mg tablet 50 mg PO DAILY Qty: 90 3RF albuterol sulfate 2.5 MG/3 ML solution for nebulization 2.5 mg inhalation Q6H PRN PRN (Reason: Sob &/Or Wheezing) metoprolol tartrate 25 mg tablet 12.5 mg PO BID furosemide 40 mg tablet See Rx Instructions .ROUTE .COMPLEX Qty: 90 3RF Hold Instructions: hold your next single dose of Lasix Dose Instruction: take 1 tablet by mouth daily Rx Instructions: take 1 tablet by mouth daily spironolactone 25 mg tablet 25 mg PO DAILY Qty: 90 3RF Primary Care Provider: Pete Butler Referrals: Pete Butler DO [Primary Care Provider] - Disposition Disposition: Home, Self Care
[2021-07-26 15:13] LABS: Absolute Lymphocyte Count 1.48 X10^3/uL (0.83-4.51); Basophil# 0.05 X10^3/uL; Basophil% 0.6 % (0-1); Eosinophil# 0.08 X10^3/uL; Hematocrit 41.7 % (37-47); Hemoglobin 13.8 g/dL (12.0-15.0); Lymphocyte # 1.48 X10^3/ul (0.83-4.51); Mean Corp Hgb Conc 33.1 g/dL (32-36); Mean Corpuscular Hgb 30.7 pg (27.0-32.0); Mean Corpuscular Volume 92.7 fL (81-99); Mean Platelet Vol. 12.3 fl (6.2-12.0); Monocyte# 0.59 X10^3/uL; Monocyte% 7.2 % (0-10); NRBC Flagged by Analyzer 0 % (0-5); Neutrophil # 5.99 X10^3/uL (2.7-7.7); Neutrophil % 72.8 % (47-70); Platelet Count 164 K/mm3 (150-450); RBC Distribution Width CV 13.5 % (11.6-14.6); RBC Distribution Width SD 45.7 fl (35.1-43.9); White Blood Count 8.2 K/mm3 (4.4-11.0)
--- NOTE | 2021-07-26 15:23 | RAD_ITS ---
STUDY: X-RAY CHEST REASON FOR EXAM: Female, 85 years old. Chest pain TECHNIQUE: Single AP portable view of the chest. COMPARISON: 07/09/2021. FINDINGS: Mild atelectatic changes in the right lung base. No new infiltrate is seen. There is no demonstrated pleural abnormality. Sternal cerclage wires are present from a prior sternotomy. Status post valve replacement. Normal mediastinum and sebastián. Normal visualized pulmonary arteries. Normal visualized aortic arch and descending thoracic aorta. Stable soft tissues and osseous structures. There is no demonstrated abnormality of the visualized soft tissue structures of the upper abdomen. RAD/Chest 1 View (Portable) IMPRESSION: Atelectatic changes in right lung base. No new infiltrate is seen. Electronically Signed: Mark Song MD at 15:45 EDT ,
[2021-07-26 15:26] LABS: BNP,B-Type NATRIURETIC PEPTIDE 324.8 pg/mL (0-100)
[2021-07-26 15:30] LABS: Anion Gap 6 (5-15); BUN 18 mg/dL (7-18); BUN/Creat Ratio 18.2 RATIO (10-20); Calcium,Total 9.7 mg/dL (8.5-10.1); Chloride 103 mmol/L (98-107); Creatinine, Serum 0.99 mg/dL (0.55-1.02); EST Glomerular Filtration Rate 57 mL/min (>60); Est Glom Filt Rate - Afr Amer 68 mL/min (>60); Estimated Creatinine Clearance 31.35 ml/min; Glucose 109 mg/dL (74-106); Potassium 4.5 mmol/L (3.5-5.1); Sodium Level 139 mmol/L (136-145); Troponin-I HS (w/2H Reflex) 34 pg/mL (3.0-54.0)
[2021-07-26 17:07] LABS: Reflex Troponin-HS? (from REC) Y
[2021-07-26 17:12] VITALS: BP 159/77
== END 2021-07-26 17:50 | disposition home or self-care (01) ==
PROVIDERS: Emergency Provider Student in an Organized Health Care Education/Training Program; PCP Preventive Medicine Occupational Medicine; Visit Provider Student in an Organized Health Care Education/Training Program
DX: M79.89 Other specified soft tissue disorders (principal); J44.9 Chronic obstructive pulmonary disease, unspecified; I42.8 Other cardiomyopathies; I10 Essential (primary) hypertension; E66.9 Obesity, unspecified; E03.9 Hypothyroidism, unspecified; K21.9 Gastro-esophageal reflux disease without esophagitis; Z79.899 Other long term (current) drug therapy
CPT/HCPCS: 71045; 80048; 83880; 84484; 85025; 93005; 99284; A4216

== ENCOUNTER 2021-08-14 17:02 | Emergency (ER) | payer MEDICARE, OTHER, SELFPAY ==
[2021-08-14 17:03] VITALS: BP 175/96; PULSE 59; RESP 18; TEMP 36.1; O2SAT 97; BMI 41.3
[2021-08-14 17:15] VITALS: BP 166/101; PULSE 57; RESP 22; O2SAT 96
--- NOTE | 2021-08-14 17:17 | EX.ED.DYSGE1 ---
HPI History of Present Illness Chief Complaint: Hypertension Detail of Chief Complaint: High blood pressure reading Onset/Context/Timing Onset: Today (Elevated reading at home of 176/105) Context: - (Unknown) Timing: - (Unknown) Quality: Asymptomatic high blood pressure Location: Cardiovascular Current Severity: Mild Maximum Severity: Mild Worsened by: Nothing Relieved by: Nothing Associated Symptoms Associated Symptoms: Nothing Narrative Narrative: Patient is an elderly woman on multiple antihypertensive meds who presents because of high blood pressure. She denies headache. She denies change in vision. She was seen by the foundry worker general to discuss surgery for cataracts. She did have her eyes dilated. She denies ringing or ears or decreased hearing. Denies trouble with speech or swallowing. She denies cardiac respiratory symptoms. She denies GI symptoms. She complains of tingling in her fingers. She denied problems with coordination or balance. She denies weakness in her upper or lower extremities. She has no complaints presently. She states she is compliant with her medication. Prior similar symptoms: No Recent Illness/Hospitalization: No PFSH PFSH Medical History Acute respiratory failure with hypoxemia Anemia Arthritis Blackout Body mass index (BMI) 35 or more Cancer Cardiology follow-up encounter COPD (chronic obstructive pulmonary disease) COPD exacerbation Demand ischemia Essential hypertension Femoral hernia of right side Gastric reflux GERD (gastroesophageal reflux disease) Gout Hiatal hernia with gastroesophageal reflux History of eye disorder History of GI bleed Hoarseness Hypothyroid Hypothyroidism Non-ischemic cardiomyopathy Non-smoker Nonrheumatic aortic (valve) stenosis with insufficiency Nonrheumatic mitral (valve) insufficiency Obesity Psoriasis Pulmonary edema Restless legs Seroma after procedure Severe sepsis Shortness of breath on exertion Skin cancer Thyroid disease Vertigo Wears dentures Wears glasses Home Medications albuterol sulfate 2.5 mg inhalation Q6H PRN PRN Sob &/Or Wheezing 02/07/18 [History Last Taken 06/24/20] levothyroxine 125 mcg tablet 125 mcg PO DAILY thyroid 05/05/18 [History Last Taken 06/25/20] metoprolol tartrate 25 mg tablet 12.5 mg PO BID blood pressure 07/10/20 [History Last Taken Unknown] furosemide 40 mg tablet See Rx Instructions .Route .COMPLEX #90 TABLETS 07/30/20 [Rx Last Taken Unknown] spironolactone 25 mg tablet 25 mg PO DAILY blood pressure #90 tabs 01/24/21 [Rx Last Taken Unknown] losartan 50 mg tablet 50 mg PO DAILY #90 tabs 05/01/21 [Rx Last Taken Unknown] omeprazole 40 mg capsule,delayed release 40 mg PO DAILY 05/01/21 [History Last Taken Unknown] Allergy/AdvReac Type Severity Reaction Status Date / Time No Known Allergies Allergy Verified 07/26/21 14:10 Family History Mother Hypertension Diabetes Father Hypertension Heart disease CVA (cerebral vascular accident) Cancer Brother Cancer Diabetes Heart disease CVA (cerebral vascular accident) Brother CVA (cerebral vascular accident) Surgical History History of aortic valve replacement with bioprosthetic valve (06/15/17) History of bladder suspension procedure History of esophagogastroduodenoscopy (EGD) History of hysterectomy History of incisional hernia repair History of left heart catheterization (2011) History of Ronen fundoplication (10/21/16) History of partial colectomy History of repair of hiatal hernia (10/21/16) Hx of colonoscopy Social History (Updated 08/14/21 @ 17:[address] Carlos Bowen MD) household members: none Smoking Status: Never smoker second hand exposure: No alcohol intake: never substance use type: does not use caffeine: Yes Type: coffee Number of servings: 1 what type of physical activity do you participate in: none frequency: does not exercise ROS ROS ED Constitutional Constitutional ED: Denies chills, fever(s), subjective, sweats or weight loss Eyes Eyes: Denies blurry vision, change in vision or diplopia ENT ENT ED: Denies ear pain, rhinorrhea or sore throat Cardiovascular Cardiovascular: Denies chest pain, orthopnea, palpitations, paroxysmal nocturnal dyspnea or racing heartbeat Respiratory/Chest Respiratory/Chest: Denies cough, dyspnea, dyspnea on exertion, orthopnea or paroxysmal nocturnal dyspnea Gastrointestinal Gastrointestinal: Denies abdominal pain, constipation, diarrhea, melena, nausea or vomiting Genitourinary Genitourinary ED: Denies dysuria, hematuria or urinary frequency Musculoskeletal Musculoskeletal: Denies arthralgias, back pain, myalgias or neck pain Neurologic Neurologic: Reports paresthesias; Denies headache(s) or weakness Psychiatric Psychiatric: Denies anxiety or depression Endocrine Endocrinology: Denies cold intolerance or heat intolerance Hematologic/Lymphatic Hematologic/Lymphatic: Reports systems reviewed and no addt'l complaints, except as documented EXAM Physical Exam Const Vital Signs: 08/14/21 17:03 08/14/21 17:07 08/14/21 17:15 Temperature 96.9 F L Temperature Source Temporal Pulse Rate 59 L 57 L Respiratory Rate 18 22 H Respiratory Pattern Normal Blood Pressure 175/96 H 166/101 H Blood Pressure Mean 122 122 Pulse Ox 97 96 Oxygen Delivery Method Room Air Room Air 08/14/21 17:30 08/14/21 17:45 08/14/21 18:00 Temperature Temperature Source Pulse Rate 56 L 57 L 56 L Respiratory Rate 22 H 20 H 20 H Respiratory Pattern Blood Pressure 146/78 H 163/109 H 155/95 H Blood Pressure Mean 100 127 115 Pulse Ox 95 98 96 Oxygen Delivery Method Room Air Room Air Room Air Positive well nourished, well developed and obese General Appearance ED: well developed and NAD; Negative for cyanotic, diaphoretic or pallor Nutritional Appearance: obese HEENT Reports moist mucous membranes HEENT Narrative: Head is atraumatic normocephalic. Ears normal. TMs normal. Nares patent. Uvula midline. There is no erythema exudate the posterior pharynx. Eyes PERRL and EOMs intact bilaterally General Eye ED: Negative for pale conjunctiva or scleral icterus Neck no lymphadenopathy, supple and no JVD Chest Wall inspection of chest normal and palpation of chest normal Resp normal respiratory effort and clear to auscultation bilaterally Cardio regular rate, regular rhythm, S1 normal heart sound, S2 normal heart sound and no murmurs GI normal to inspection, nondistended, normoactive bowel sounds, non-tender and non-distended Inspection: abdominal distention Palpation: soft Back/Spine no CVA tenderness Cervical Spine: Negative for cervical spine tenderness Thoracic Spine / Upper Back: Negative for thoracic spinal tenderness Lumbar Spine / Lower Back: Negative for lumbar spinal tenderness Extremity normal to inspection General Extremety ED: Negative for edema or tenderness General Extremity: Negative for edema Neuro oriented x3, CN's II-XII intact bilaterally and no sensory deficits noted Neuro Narrative: There is no dysmetria. Sensorium / Orientation: alert Motor Exam: strength 5/5 throughout Psych mental status grossly normal Mood & Affect: anxious Skin no rashes or lesions noted and no wounds General Skin Exam: Negative for jaundice or pallor MDM MDM MDM Narrative Medical decision making narrative: Patient with asymptomatic hypertension. Will assess BMP and UA to assess for endorgan injury. Patient was upset that initially I was not ordering anything. Her initial blood pressure was 175/96. Second blood pressure was 166/105. Third blood pressure is 146/78. Patient reports compliance with her medication and diet. Lab Data Attestation: I reviewed the patient's lab results. Lab results narrative: There is no evidence of endorgan injury. Patient's blood pressure improved without treatment. She was discharged home to follow-up with her doctor for recheck in 1 to 2 weeks. Labs: Laboratory Results - last 24 hr 08/14/21 08/14/21 17:10 17:35 Sodium 138 Potassium 4.4 Chloride 106 Carbon Dioxide 28.0 Anion Gap 4 L BUN 26 H Creatinine 1.06 H Estim Creat Clear Calc 29.28 Est GFR (MDRD) Af Amer 63 Est GFR (MDRD) Non-Af 52 L BUN/Creatinine Ratio 24.5 H Glucose 120 H Calcium 8.8 Urine Color Straw Urine Clarity Clear Urine pH 7.0 Ur Specific [place] 1.005 Urine Protein Negative Urine Glucose (UA) Normal Urine Ketones Negative Urine Occult Blood Negative Urine Nitrite Negative Urine Bilirubin Negative Urine Urobilinogen Normal Ur Leukocyte Esterase 25 H Rhythm Strip Rhythm Strip: Sinus Rhythm Rate: 58 Discharge Plan Triage Chief Complaint: Hypertension ED Provider: Carlos Bowen Dx/Rx/DC Orders Clinical Impression: Asymptomatic hypertension Instructions: ED Hypertension, Established Prescriptions: No Action levothyroxine 125 mcg tablet 125 mcg PO DAILY omeprazole 40 mg capsule,delayed release(DR/EC) 40 mg PO DAILY Label Comments: take 1 capsule by mouth once daily losartan 50 mg tablet 50 mg PO DAILY Qty: 90 3RF albuterol sulfate 2.5 MG/3 ML solution for nebulization 2.5 mg inhalation Q6H PRN PRN (Reason: Sob &/Or Wheezing) metoprolol tartrate 25 mg tablet 12.5 mg PO BID furosemide 40 mg tablet See Rx Instructions .ROUTE .COMPLEX Qty: 90 3RF Hold Instructions: hold your next single dose of Lasix Dose Instruction: take 1 tablet by mouth daily Rx Instructions: take 1 tablet by mouth daily spironolactone 25 mg tablet 25 mg PO DAILY Qty: 90 3RF Primary Care Provider: Pete Butler Referrals: Pete Butler DO [Primary Care Provider] - 1-2 Weeks Disposition Disposition: Home, Self Care
[2021-08-14 17:30] VITALS: BP 146/78; PULSE 56; RESP 22; O2SAT 95
[2021-08-14 17:45] VITALS: BP 163/109; PULSE 57; RESP 20; O2SAT 98
[2021-08-14 17:50] LABS: Red Blood Cells-Urine 0 SEEN /hpf (0-5)
[2021-08-14 17:52] LABS: Color, Urine Straw (Yellow); Glucose, Dipstick Normal (Normal); Ketone-Dipstick Negative (Negative); Leukocyte Esterase-Dipstick 25 /ul (Negative); Nitrite-Dipstick Negative (Negative); Occult Blood-Urine Negative /ul (Negative); Protein-Dipstick Negative (Negative); Specific Gravity, Urine 1.005 (1.002-1.030); Urine Bilirubin Dipstick Negative (Negative); Urine Clarity Clear (Clear); Urine Urobilinogen Normal (Normal)
[2021-08-14 18:00] VITALS: BP 155/95; PULSE 56; RESP 20; O2SAT 96
[2021-08-14 18:08] LABS: Anion Gap 4 (5-15); BUN 26 mg/dL (7-18); BUN/Creat Ratio 24.5 RATIO (10-20); Calcium,Total 8.8 mg/dL (8.5-10.1); Chloride 106 mmol/L (98-107); Creatinine, Serum 1.06 mg/dL (0.55-1.02); EST Glomerular Filtration Rate 52 mL/min (>60); Est Glom Filt Rate - Afr Amer 63 mL/min (>60); Estimated Creatinine Clearance 29.28 ml/min; Glucose 120 mg/dL (74-106); Potassium 4.4 mmol/L (3.5-5.1); Sodium Level 138 mmol/L (136-145)
[2021-08-14 18:21] LABS: Bacteria 2+ /hpf (None Seen); Squamous Epithelial Cells - UA 5-10 SEEN /hpf (5-10); White Blood Cells 0-5 SEEN /hpf (0-5)
[2021-08-14 18:22] LABS: Mucous, Urine 1+ /hpf (<or=2+)
[2021-08-14 18:27] VITALS: BP 157/78; PULSE 58; RESP 18; O2SAT 95
== END 2021-08-14 18:47 | disposition home or self-care (01) ==
PROVIDERS: Emergency Provider Emergency Medicine; PCP Preventive Medicine Occupational Medicine; Visit Provider Emergency Medicine
DX: I10 Essential (primary) hypertension (principal); E66.9 Obesity, unspecified
CPT/HCPCS: 80048; 81001; 99285

== ENCOUNTER 2021-09-11 10:55 | Emergency (ER) | payer MEDICARE, OTHER, SELFPAY ==
[2021-09-11 10:58] VITALS: BP 140/62; PULSE 62; RESP 17; TEMP 36.9; O2SAT 97; BMI 41.8
--- NOTE | 2021-09-11 11:27 | EKG12_ITS ---
Test Reason : weakness Blood Pressure : / mmHG Vent. Rate : 063 BPM Atrial Rate : 063 BPM P-R Int : 134 ms QRS Dur : 110 ms QT Int : 432 ms P-R-T Axes : 066 054 121 degrees QTc Int : 442 ms Normal sinus rhythm Possible Left atrial enlargement Low voltage QRS Septal infarct , age undetermined ST & T wave abnormality, consider lateral ischemia Abnormal ECG Confirmed by ZOHRA SERVIN, NOREEN ([id number]), editorial manager YOANNA WOODS ([id number]) on 09/15/2021 11:24:21 AM Referred By: New Confirmed By:NOREEN العلي MD
--- NOTE | 2021-09-11 11:29 | EX.ED.DYSGE1 ---
HPI <GLADYS Miles - Last Filed: 09/11/21 13:15> History of Present Illness Chief Complaint: Weakness Narrative Narrative: 85-year-old female with history of hypertension, hypothyroidism, congestive heart failure, COPD presents to the emergency department with weeks of weakness, inability to care for self, however is been more pronounced over the last 3 to 4 days. Patient states she has a light cough, she this morning was unable to get out of bed by herself and had to call the ambulance to get her to the emergency department. Patient states for the last 3 to 4 days she has not been eating or drinking properly. Patient is accompanied by family members who states that she needs placed in a fdc because she cannot live by herself. Patient herself thinks that she is unsafe living by herself. PFS <GLADYS Miles - Last Filed: 09/11/21 13:15> [facility] Medical History Acute respiratory failure with hypoxemia Anemia Arthritis Blackout Body mass index (BMI) 35 or more Cancer Cardiology follow-up encounter COPD (chronic obstructive pulmonary disease) COPD exacerbation Demand ischemia Essential hypertension Femoral hernia of right side Gastric reflux GERD (gastroesophageal reflux disease) Gout Hiatal hernia with gastroesophageal reflux History of eye disorder History of GI bleed Hoarseness Hypothyroid Hypothyroidism Non-ischemic cardiomyopathy Non-smoker Nonrheumatic aortic (valve) stenosis with insufficiency Nonrheumatic mitral (valve) insufficiency Obesity Psoriasis Pulmonary edema Restless legs Seroma after procedure Severe sepsis Shortness of breath on exertion Skin cancer Thyroid disease Vertigo Wears dentures Wears glasses Home Medications albuterol sulfate 2.5 mg/3 mL (0.083 %) solution for nebulization 2.5 mg inhalation Q6H PRN PRN Sob &/Or Wheezing 02/07/18 [History Last Taken 06/24/20] levothyroxine 125 mcg tablet 125 mcg PO DAILY thyroid 05/05/18 [History Last Taken 06/25/20] metoprolol tartrate 25 mg tablet 12.5 mg PO BID blood pressure hold if SBP <90 or HR <46 07/10/20 [History Last Taken Unknown] furosemide 40 mg tablet See Rx Instructions .Route .COMPLEX #90 TABLETS 07/30/20 [Rx Last Taken Unknown] spironolactone 25 mg tablet 25 mg PO DAILY blood pressure #90 tabs 01/24/21 [Rx Last Taken Unknown] losartan 50 mg tablet 50 mg PO DAILY #90 tabs 05/01/21 [Rx Last Taken Unknown] omeprazole 40 mg capsule,delayed release 40 mg PO DAILY 05/01/21 [History Last Taken Unknown] Allergy/AdvReac Type Severity Reaction Status Date / Time atb she previously for Allergy hallucinati Uncoded 09/11/21 10:57 pneumonia ons Family History Mother Hypertension Diabetes Father Hypertension Heart disease CVA (cerebral vascular accident) Cancer Brother Cancer Diabetes Heart disease CVA (cerebral vascular accident) Brother CVA (cerebral vascular accident) Surgical History History of aortic valve replacement with bioprosthetic valve (06/15/17) History of bladder suspension procedure History of esophagogastroduodenoscopy (EGD) History of hysterectomy History of incisional hernia repair History of left heart catheterization (2011) History of Ronen fundoplication (10/21/16) History of partial colectomy History of repair of hiatal hernia (10/21/16) Hx of colonoscopy Social History (Updated 08/14/21 @ 17:[address] Carlos Bowen MD) household members: none Smoking Status: Never smoker second hand exposure: No alcohol intake: never substance use type: does not use caffeine: Yes Type: coffee Number of servings: 1 what type of physical activity do you participate in: none frequency: does not exercise ROS <GLADYS Miles - Last Filed: 09/11/21 13:15> ROS ED ROS Narrative Constitutional: Negative for fever, chills, weight loss. Positive for generalized weakness Eyes: Negative for vision loss, vision change, double vision ENT: Negative for any sore throat, ear pain, congestion Cardiovascular: Negative for any chest pain, tightness, palpitations Respiratory: Negative for any sputum production, hemoptysis, dyspnea, dyspnea on exertion, orthopnea. Positive for cough Gastrointestinal: Negative for any abdominal pain, nausea, vomiting, diarrhea, constipation, blood in stool, blood in vomit. Positive for decreased appetite : Negative for any urinary frequency, dysuria, retention, blood in urine Muscle skeletal: Negative for any muscle joint pain, stiffness, myalgias, arthralgias, neck pain, back pain Neurological: Negative for any headache, syncope, numbness or tingling, dizziness Skin: Negative for any rashes, lumps, itching, abrasions, lacerations Psychiatric: Negative for any depression, anxiety, stress, suicidal ideation, homicidal ideation Hematologic: Negative for any easy bruising, excessive bruising, easy bleeding Allergies: Negative for any eczema, hives, rash EXAM <GLADYS Miles - Last Filed: 09/11/21 13:15> Physical Exam Narrative Exam Narrative: Vital signs reviewed. Patient appears well, patient appears nontoxic, vital signs are stable. HEET: Head normocephalic atraumatic, TMs clear bilaterally. Posterior pharynx is clear, dry mucous membranes. Nares clear bilaterally. Neck: Supple with no lymphadenopathy or tenderness. No signs of meningismus, negative jolt sign. Cardiac: Regular rate and rhythm no murmurs gallops or rubs, equal peripheral pulses bilaterally. Respiratory: Lungs clear to auscultation bilaterally. No chest tenderness. Abdomen: Soft, nontender, nondistended. No abdominal bruit or pulsatile masses. No hepatosplenomegaly Extremities: No peripheral edema, no signs of gross trauma or deformity. Active full range of motion of all extremities. Neuro: Cranial nerves II through XII intact, no focal neurological deficits. Skin: Clean dry and intact with no rash, purpura, petechiae, vesicles or pustules. Backs/flank: No CVA tenderness, no midline spinal tenderness, no deformity. Psych: Normal mood and affect. No SI, HI or acute psychosis. Const Vital Signs: 09/11/21 10:58 09/11/21 10:58 Temperature 98.4 F Temperature Source Temporal Pulse Rate 62 Respiratory Rate 17 Respiratory Effort Normal Non-Labored Respiratory Pattern Normal Blood Pressure 140/62 H Blood Pressure Mean 88 Pulse Ox 97 Oxygen Delivery Method Room Air Positive well nourished and well developed General Appearance ED: well developed <Dr. Pete Carlson DO - Last Filed: 09/11/21 13:16> Physical Exam Const Vital Signs: 09/11/21 10:58 09/11/21 10:58 Temperature 98.4 F Temperature Source Temporal Pulse Rate 62 Respiratory Rate 17 Respiratory Effort Normal Non-Labored Respiratory Pattern Normal Blood Pressure 140/62 H Blood Pressure Mean 88 Pulse Ox 97 Oxygen Delivery Method Room Air [facility] <GLADYS Miles - Last Filed: 09/11/21 13:15> [facility] Lab Data Attestation: I reviewed the patient's lab results. Labs: Laboratory Results - last 24 hr 09/11/21 09/11/21 09/11/21 11:38 11:38 12:20 WBC 11.6 H RBC 4.25 Hgb 13.3 Hct 39.6 MCV 93.2 MCH 31.3 MCHC 33.6 RDW Std Deviation 47.8 H RDW Coeff of Fabricio 14.1 Plt Count 130 L MPV 12.3 H Immature Gran % (Auto) 0.300 Neut % (Auto) 84.0 H Lymph % (Auto) 6.7 L [place] % (Auto) 8.7 Eos % (Auto) 0.0 Baso % (Auto) 0.3 Absolute Neuts (auto) 9.7 H Absolute Lymphs (auto) 0.78 L Nucleated RBC % 0 Sodium 134 L Potassium 4.6 Chloride 102 Carbon Dioxide 27.0 Anion Gap 5 BUN 25 H Creatinine 1.23 H Estim Creat Clear Calc 25.23 Est GFR (MDRD) Af Amer 53 L Est GFR (MDRD) Non-Af 44 L BUN/Creatinine Ratio 20.3 H Glucose 123 H Calcium 8.6 Troponin I High Sens 22 TSH 1.32 Urine Color Yellow Urine Clarity Cloudy Urine pH 6.0 Ur Specific [place] 1.010 Urine Protein 100 H Urine Glucose (UA) Normal Urine Ketones Negative Urine Occult Blood 250 H Urine Nitrite Positive H Urine Bilirubin Negative Urine Urobilinogen Normal Ur Leukocyte Esterase 500 H Urine RBC 0 SEEN Urine WBC >100 SEEN Ur Squamous Epith Cells 0 SEEN Urine Bacteria RARE Urine Mucus 0 SEEN Radiography Diagnostic Testing: Clinical Impression(s) from Imaging Studies Chest X-Ray 09/11/21 12:05 IMPRESSION: No acute cardiopulmonary abnormality. Electronically Signed: Scottie Leung MD at 12:31 EDT , EKG Normal sinus rhythm: Comments: Normal sinus rhythm, rate 63 bpm, MD interval 134 ms, QRS duration 10 ms, no acute ST elevation, no acute infarct noted. Treatment and Re-Evaluation Narrative: Patient appears well, patient appears nontoxic, vital signs are stable. Patient presents the emergency department with multiple days of weakness, wanting placement and is unable to care for self. Patient did receive some basic laboratory values, patient's CBC was unremarkable, chemistry shows slight renal dysfunction however this is chronic. Patient's urinalysis is positive for a urinary tract infection with leukocytes, nitrites, bacteria. This to be sent for culture, patient be given IV fluids, IV Rocephin. Patient's chest x-ray, interpreted by ER physician was unremarkable, patient's COVID-19, flu was unremarkable. Patient EKG was unremarkable. At this time, there is no evidence of sepsis however patient does have a urinary tract infection which could be contributing to her weakness. However patient is unable to care for self will need to be admitted to the hospital with placement. Patient is stable for admission <Dr. Pete Carlson DO - Last Filed: 09/11/21 13:16> [facility] MDM Narrative Medical decision making narrative: I performed a history and physical examination of the patient and discussed management plan with the physician educational assistant teacher. I reviewed the physician educational assistant teacher's note and agree with the documented findings and plan of care. Patient presenting with weakness and noted that she needs assistance in her living situation. White count 11.6. Greater than 100 white cells no squamous cells rare bacteria but positive for nitrates and leukocyte esterase. This is sent for culture. She received Rocephin. Plan is admission. Pete Carlson DO MS Lab Data Labs: Laboratory Results - last 24 hr 09/11/21 09/11/21 09/11/21 11:38 11:38 12:20 WBC 11.6 H RBC 4.25 Hgb 13.3 Hct 39.6 MCV 93.2 MCH 31.3 MCHC 33.6 RDW Std Deviation 47.8 H RDW Coeff of Fabricio 14.1 Plt Count 130 L MPV 12.3 H Immature Gran % (Auto) 0.300 Neut % (Auto) 84.0 H Lymph % (Auto) 6.7 L [place] % (Auto) 8.7 Eos % (Auto) 0.0 Baso % (Auto) 0.3 Absolute Neuts (auto) 9.7 H Absolute Lymphs (auto) 0.78 L Nucleated RBC % 0 Sodium 134 L Potassium 4.6 Chloride 102 Carbon Dioxide 27.0 Anion Gap 5 BUN 25 H Creatinine 1.23 H Estim Creat Clear Calc 25.23 Est GFR (MDRD) Af Amer 53 L Est GFR (MDRD) Non-Af 44 L BUN/Creatinine Ratio 20.3 H Glucose 123 H Calcium 8.6 Troponin I High Sens 22 TSH 1.32 Urine Color Yellow Urine Clarity Cloudy Urine pH 6.0 Ur Specific [place] 1.010 Urine Protein 100 H Urine Glucose (UA) Normal Urine Ketones Negative Urine Occult Blood 250 H Urine Nitrite Positive H Urine Bilirubin Negative Urine Urobilinogen Normal Ur Leukocyte Esterase 500 H Urine RBC 0 SEEN Urine WBC >100 SEEN Ur Squamous Epith Cells 0 SEEN Urine Bacteria RARE Urine Mucus 0 SEEN Radiography Diagnostic Testing: Clinical Impression(s) from Imaging Studies Chest X-Ray 09/11/21 12:05 IMPRESSION: No acute cardiopulmonary abnormality. Electronically Signed: Scottie Leung MD at 12:31 EDT , Discharge Plan Dx/Rx/DC Orders Clinical Impression: Adult failure to thrive, Weakness, Urinary tract infection Disposition Disposition: Acute Care [facility]
[2021-09-11 11:49] LABS: Absolute Lymphocyte Count 0.78 X10^3/uL (0.83-4.51); Absolute Neutrophil Count 9.7 X10^3/uL (2.0-7.7); Basophil# 0.04 X10^3/uL; Basophil% 0.3 % (0-1); Hematocrit 39.6 % (37-47); Hemoglobin 13.3 g/dL (12.0-15.0); Lymphocyte # 0.78 X10^3/ul (0.83-4.51); Lymphocyte % 6.7 % (19-41); Mean Corp Hgb Conc 33.6 g/dL (32-36); Mean Corpuscular Hgb 31.3 pg (27.0-32.0); Mean Corpuscular Volume 93.2 fL (81-99); Mean Platelet Vol. 12.3 fl (6.2-12.0); Monocyte# 1.01 X10^3/uL; Monocyte% 8.7 % (0-10); NRBC Flagged by Analyzer 0 % (0-5); Neutrophil # 9.69 X10^3/uL (2.7-7.7); Platelet Count 130 K/mm3 (150-450); RBC Distribution Width CV 14.1 % (11.6-14.6); RBC Distribution Width SD 47.8 fl (35.1-43.9); Red Blood Count 4.25 M/mm3 (4.2-5.4); White Blood Count 11.6 K/mm3 (4.4-11.0)
--- NOTE | 2021-09-11 12:05 | RAD_ITS ---
EXAM: XR CHEST, 1 VIEW CLINICAL INDICATION: weakness TECHNIQUE: Frontal view of the chest. This report was created using [employer] report generation technology. COMPARISON: XR Chest dated jun 25 2020 FINDINGS: LUNGS AND PLEURAL SPACES: Shallow inspiration. Minor atelectatic change at the lung bases. No pneumothorax. No effusion. HEART: Mitral valve prosthesis remains in place. Stable normal heart size with left ventricular prominence. MEDIASTINUM: Central airways and mediastinal contour are unremarkable. BONES/JOINTS: Sternotomy wires are in place. SOFT TISSUES: Normal. RAD/Chest 1 View (Portable) IMPRESSION: No acute cardiopulmonary abnormality. Electronically Signed: Scottie Leung MD at 12:31 EDT ,
[2021-09-11 12:14] LABS: Anion Gap 5 (5-15); BUN 25 mg/dL (7-18); BUN/Creat Ratio 20.3 RATIO (10-20); Calcium,Total 8.6 mg/dL (8.5-10.1); Chloride 102 mmol/L (98-107); Creatinine, Serum 1.23 mg/dL (0.55-1.02); EST Glomerular Filtration Rate 44 mL/min (>60); Est Glom Filt Rate - Afr Amer 53 mL/min (>60); Estimated Creatinine Clearance 25.23 ml/min; Glucose 123 mg/dL (74-106); Potassium 4.6 mmol/L (3.5-5.1); Sodium Level 134 mmol/L (136-145); Thyroid Stim Hormone (TSH) 1.32 uIU/mL (0.358-3.74); Troponin-I HS 22 pg/mL (3.0-54.0)
[2021-09-11 12:31] LABS: Mucous, Urine 0 SEEN /hpf (<or=2+); Red Blood Cells-Urine 0 SEEN /hpf (0-5); Squamous Epithelial Cells - UA 0 SEEN /hpf (5-10)
[2021-09-11 12:34] LABS: Color, Urine Yellow (Yellow); Glucose, Dipstick Normal (Normal); Ketone-Dipstick Negative (Negative); Leukocyte Esterase-Dipstick 500 /ul (Negative); Nitrite-Dipstick Positive (Negative); Occult Blood-Urine 250 /ul (Negative); Protein-Dipstick 100 mg/dl (Negative); Urine Bilirubin Dipstick Negative (Negative); Urine Clarity Cloudy (Clear); Urine Urobilinogen Normal (Normal)
[2021-09-11 12:42] LABS: Bacteria RARE /hpf (None Seen); White Blood Cells >100 SEEN /hpf (0-5)
[2021-09-11] MEDS: Ceftriaxone 1 GM/50 ML BAG IV (13:19)
[2021-09-11] MEDS: Ondansetron 4 MG/2 ML Vial IV (13:34)
[2021-09-11 13:37] LABS: BNP,B-Type NATRIURETIC PEPTIDE 225.4 pg/mL (0-100)
--- NOTE | 2021-09-11 15:16 | CM.ED ---
Social Work - Emergency Department Consult received by medical provider for SNF placement. Brief chart review. Noted that patient has [facility] and LW on file. Patient's granddaughter Mar Arevalo is listed at the [facility]. Met with patient in room who reports to live alone in one story home, in a senior living home. Patient reports has been weak, and not able to do as much for herself recently. Patient reports before becoming ill would drive and get own groceries, but now has to ask for help. Patient reports to have a cane, walker, raised toilet seat, and grab bars in the home. Reports to have [facility] right now for therapy, and that nursing was recently discontinued. Patient reports concern about going home alone right now, and to feel that needs more care and assistance. Patient expressed interest in SNF. Denies any SNF in the past. Patient expresses would like to go to [facility] at [place], as this is the facility that patient's brother chose. Provided patient with list of nursing homes in patient's geographic region, which includes quality and data ratings. As patient reports to recently to have had cataract surgery and does not have glasses read the list to patient. Patient maintained desire to go to [facility]. Referral to Nidhi Madrid at [facility], giving verbal referral. Confirmed fax and faxed referral information. Updated patient, nursing, and medical provider of pending referral. Plan: Anticipate SNF for PT/OT services. Await response from [facility]. -RAVEN Chen, AIR CONDITIONING UNIT ASSEMBLER
--- NOTE | 2021-09-11 16:00 | CM.ED ---
Social Work-Emergency Department Spoke with Nidhi from [facility], and patient can be accepted today. Updated medical providers and nursing staff. Faxed discharge instructions and updated history and physical indicating need for skilled care at [facility]. Completed PASRR screen via the [facility] system. Faxed PASRR results to [facility]. Provided nursing staff with handoff number to [facility] and patient's intended room number. Updated patient, who remains in agreement with this plan. Patient agreeable to have this abstract writer update family in preferred the patient's brother who was present with the patient in the emergency department. Spoke with patient's brother Florian and updated. Florian will meet with the patient at the nursing facility. Plan: Discharge skilled level of care to [facility] for therapy under Medicare benefit. -RAVEN Chen, MEASUREMENT AND VERIFICATION ENGINEER *This note was generated with Spokeable dictation software. It may contain incorrect words, spelling, and punctuation that were not noted in review of the chart prior to signing*
--- NOTE | 2021-09-11 16:08 | NURSING ---
SPOKE WITH [facility], ETA OF 30MIN AT THIS TIME TO GET PT [facility]
[2021-09-11 16:16] VITALS: BP 132/63; PULSE 65; RESP 16; O2SAT 93
== END 2021-09-11 16:55 | disposition skilled nursing facility (03) ==
LOC: ED 13:16 → MS3 14:14
PROVIDERS: Nurse Practitioner; Emergency Provider Emergency Medicine; PCP Preventive Medicine Occupational Medicine; Visit Provider Emergency Medicine
DX: R62.7 Adult failure to thrive (principal); J44.9 Chronic obstructive pulmonary disease, unspecified; I11.0 Hypertensive heart disease with heart failure; I50.9 Heart failure, unspecified; R53.1 Weakness; N39.0 Urinary tract infection, site not specified; E03.9 Hypothyroidism, unspecified; K21.9 Gastro-esophageal reflux disease without esophagitis; Z79.899 Other long term (current) drug therapy
CPT/HCPCS: 71045; 80048; 81001; 83880; 84443; 84484; 85025; 87077; 87086; 87088; 87186; 87428; 93005; 96365; 96375; 99285; J7050; A4216; J2405

== ENCOUNTER 2022-07-14 12:18 | Emergency (ER) | payer MEDICARE, OTHER, SELFPAY ==
[2022-07-14 12:19] VITALS: TEMP 36.4; BMI 42.7
[2022-07-14 12:26] VITALS: PULSE 76; RESP 14; O2SAT 98
[2022-07-14 13:00] LABS: Absolute Lymphocyte Count 1.34 X10^3/uL (0.83-4.51); Absolute Neutrophil Count 5.2 X10^3/uL (2.0-7.7); Basophil# 0.05 X10^3/uL; Basophil% 0.7 % (0-1); Eosinophil# 0.07 X10^3/uL; Hematocrit 44.7 % (37-47); Lymphocyte # 1.34 X10^3/ul (0.83-4.51); Lymphocyte % 18.2 % (19-41); Mean Corp Hgb Conc 31.3 g/dL (32-36); Mean Corpuscular Hgb 29.5 pg (27.0-32.0); Mean Corpuscular Volume 94.3 fL (81-99); Mean Platelet Vol. 11.9 fl (6.2-12.0); Monocyte# 0.62 X10^3/uL; Monocyte% 8.4 % (0-10); NRBC Flagged by Analyzer 0 % (0-5); Neutrophil # 5.24 X10^3/uL (2.7-7.7); Neutrophil % 71.3 % (47-70); Platelet Count 170 K/mm3 (150-450); RBC Distribution Width CV 12.9 % (11.6-14.6); Red Blood Count 4.74 M/mm3 (4.2-5.4); White Blood Count 7.4 K/mm3 (4.4-11.0)
[2022-07-14 13:17] LABS: Anion Gap 5 (5-15); BUN 24 mg/dL (7-18); BUN/Creat Ratio 21.2 RATIO (10-20); Chloride 107 mmol/L (98-107); Creatinine, Serum 1.13 mg/dL (0.55-1.02); EST Glomerular Filtration Rate 48 mL/min (>60); Est Glom Filt Rate - Afr Amer 59 mL/min (>60); Estimated Creatinine Clearance 26.97 ml/min; Glucose 92 mg/dL (74-106); Potassium 5.2 mmol/L (3.5-5.1); Sodium Level 140 mmol/L (136-145)
[2022-07-14 13:17] LABS: Bacteria 0 SEEN /hpf (None Seen); Mucous, Urine 0 SEEN /hpf (<or=2+); Red Blood Cells-Urine 0 SEEN /hpf (0-5)
[2022-07-14 13:18] LABS: Color, Urine Yellow (Yellow); Glucose, Dipstick Normal (Normal); Ketone-Dipstick Negative (Negative); Leukocyte Esterase-Dipstick 25 /ul (Negative); Nitrite-Dipstick Negative (Negative); Occult Blood-Urine Negative /ul (Negative); Protein-Dipstick Negative (Negative); Urine Bilirubin Dipstick Negative (Negative); Urine Clarity Clear (Clear); Urine Urobilinogen Normal (Normal)
[2022-07-14 13:25] LABS: Squamous Epithelial Cells - UA 0-5 SEEN /hpf (5-10); White Blood Cells 0-5 SEEN /hpf (0-5)
--- NOTE | 2022-07-14 13:30 | EX.ED.DYSGE1 ---
HPI History of Present Illness Chief Complaint: Complaint Informant: patient Onset/Context/Timing Onset: Weeks (1) Context: Gradual Onset Timing: Continuous Quality: Frequency Location: Bladder Worsened by: Nothing Relieved by: Nothing Narrative Narrative: Patient presents with possible urinary tract infection for the past week. Patient admits to some urinary frequency and lightheadedness. Patient denies any dysuria or hematuria. Patient denies any abdominal pain. Patient states it is gradually gotten worse throughout the last week. Patient states it has been constant. Patient denies any polydipsia. Patient denies any fevers or chills. Patient denies any nausea or vomiting. Patient states nothing makes it better nothing makes it worse. [facility] Medical History Acute respiratory failure with hypoxemia Anemia Arthritis Blackout Body mass index (BMI) 35 or more Cancer Cardiology follow-up encounter COPD (chronic obstructive pulmonary disease) COPD (chronic obstructive pulmonary disease) COPD exacerbation Demand ischemia Essential hypertension Femoral hernia of right side Gastric reflux GERD (gastroesophageal reflux disease) GERD (gastroesophageal reflux disease) Gout Hiatal hernia with gastroesophageal reflux History of eye disorder History of GI bleed Hoarseness Hypothyroid Hypothyroidism Non-ischemic cardiomyopathy Non-smoker Nonrheumatic aortic (valve) stenosis with insufficiency Nonrheumatic mitral (valve) insufficiency Obesity Psoriasis Pulmonary edema Restless legs Seroma after procedure Severe sepsis Shortness of breath on exertion Skin cancer Thyroid disease Vertigo Wears dentures Wears glasses Home Medications albuterol sulfate 2.5 mg/3 mL (0.083 %) solution for nebulization 2.5 mg inhalation Q6H PRN PRN Sob &/Or Wheezing 02/07/18 [History Last Taken 09/09/21] levothyroxine 125 mcg tablet 125 mcg PO DAILY thyroid 05/05/18 [History Last Taken 09/11/21] spironolactone 25 mg tablet 25 mg PO DAILY blood pressure #90 tabs 01/24/21 [Rx Last Taken 09/10/21] omeprazole 40 mg capsule,delayed release 40 mg PO DAILY 05/01/21 [History Last Taken 09/10/21] multivitamin 1 tab PO DAILY supplement 09/11/21 [History Last Taken 09/10/21] ondansetron 4 mg disintegrating tablet 4 mg PO Q8H PRN nausea and vomiting #10 tabs 09/11/21 [Rx Last Taken Unknown] losartan 50 mg tablet 25 mg PO DAILY bp 11/04/21 [History Last Taken Unknown] metoprolol tartrate 25 mg tablet 25 mg PO DAILY blood pressure hold if SBP <90 or HR <46 11/04/21 [History Last Taken Unknown] Allergy/AdvReac Type Severity Reaction Status Date / Time No Known Allergies Allergy Verified 07/14/22 12:19 Family History Mother Hypertension Diabetes Father Hypertension Heart disease CVA (cerebral vascular accident) Cancer Brother Cancer Diabetes Heart disease CVA (cerebral vascular accident) Brother CVA (cerebral vascular accident) Surgical History History of aortic valve replacement with bioprosthetic valve (06/15/17) History of bladder suspension procedure History of esophagogastroduodenoscopy (EGD) History of hysterectomy History of incisional hernia repair History of left heart catheterization (2011) History of Ronen fundoplication (10/21/16) History of partial colectomy History of repair of hiatal hernia (10/21/16) Hx of colonoscopy Social History household members: none Smoking Status: Never smoker second hand exposure: No alcohol intake: never substance use type: does not use caffeine: Yes Type: coffee Number of servings: 1 what type of physical activity do you participate in: none frequency: does not exercise ROS ROS ED Constitutional Constitutional ED: Denies chills or fever(s) Eyes Eyes: Denies blurry vision or change in vision ENT ENT ED: Denies rhinorrhea or sore throat Cardiovascular Cardiovascular: Denies chest pain or palpitations Respiratory/Chest Respiratory/Chest: Denies cough or dyspnea Gastrointestinal Gastrointestinal: Denies nausea or vomiting Genitourinary Genitourinary ED: Reports urinary frequency; Denies dysuria or hematuria Musculoskeletal Musculoskeletal: Reports back pain; Denies neck pain Integumentary Reports rash; Denies abscess Neurologic Neurologic: Denies headache(s) or weakness Allergic/Immunologic Allergic/Immunologic ED: Denies mouth swelling or urticaria EXAM Physical Exam Const Vital Signs: 07/14/22 12:19 07/14/22 12:26 Temperature 97.6 F L Temperature Source Temporal Pulse Rate 76 Respiratory Rate 14 Pulse Ox 98 Oxygen Delivery Method Room Air Positive well nourished and well developed General Appearance ED: well developed and NAD HEENT Reports moist mucous membranes Neck supple and no JVD Resp normal respiratory effort and clear to auscultation bilaterally Cardio regular rate and regular rhythm GI normal to inspection, nondistended, normoactive bowel sounds and non-tender Palpation: soft Extremity normal to inspection General Extremety ED: Negative for edema or tenderness General Extremity: Negative for edema Neuro oriented x3, CN's II-XII intact bilaterally and no sensory deficits noted Sensorium / Orientation: alert Motor Exam: strength 5/5 throughout Psych mental status grossly normal Skin no rashes or lesions noted MDM MDM MDM Narrative Medical decision making narrative: Differential diagnosis includes urinary tract infection, diabetes, and electrolyte abnormality. CBC will be obtained to assess for leukocytosis and anemia. Basic metabolic profile will be obtained to assess for electrolyte abnormality and renal function. Urinalysis will be obtained to assess for urinary tract infection and hematuria. Lab Data Attestation: I reviewed the patient's lab results. Lab results narrative: CBC was reviewed and was within normal limits. Basic metabolic profile was reviewed. There is a slightly elevated potassium 5.2. BUN was 24 and creatinine was 1.13. The remainder was within normal limits. Urinalysis was reviewed. There is no evidence of urinary tract infection or hematuria. Labs: Laboratory Results - last 24 hr 07/14/22 07/14/22 07/14/22 12:52 12:52 13:10 WBC 7.4 RBC 4.74 Hgb 14.0 Hct 44.7 MCV 94.3 MCH 29.5 MCHC 31.3 L RDW Std Deviation 45.0 H RDW Coeff of Fabricio 12.9 Plt Count 170 MPV 11.9 Immature Gran % (Auto) 0.400 Neut % (Auto) 71.3 H Lymph % (Auto) 18.2 L [place] % (Auto) 8.4 Eos % (Auto) 1.0 Baso % (Auto) 0.7 Absolute Neuts (auto) 5.2 Absolute Lymphs (auto) 1.34 Nucleated RBC % 0 Sodium 140 Potassium 5.2 H Chloride 107 Carbon Dioxide 28.0 Anion Gap 5 BUN 24 H Creatinine 1.13 H Estim Creat Clear Calc 26.97 Est GFR (MDRD) Af Amer 59 L Est GFR (MDRD) Non-Af 48 L BUN/Creatinine Ratio 21.2 H Glucose 92 Calcium 9.0 Urine Color Yellow Urine Clarity Clear Urine pH 7.0 Ur Specific [place] 1.010 Urine Protein Negative Urine Glucose (UA) Normal Urine Ketones Negative Urine Occult Blood Negative Urine Nitrite Negative Urine Bilirubin Negative Urine Urobilinogen Normal Ur Leukocyte Esterase 25 H Urine RBC 0 SEEN Urine WBC 0-5 SEEN Ur Squamous Epith Cells 0-5 SEEN Urine Bacteria 0 SEEN Urine Mucus 0 SEEN Treatment and Re-Evaluation :: Patient was advised of her findings. Patient was given an albuterol aerosol to help with the mild hyperkalemia. Patient was instructed to drink plenty of fluids. Patient was instructed to follow-up with her primary care physician in 5 to 7 days. Patient was instructed to return if worse in any way. Patient understood and was agreeable with the plan. All questions were answered. Discharge Plan Triage Chief Complaint: Complaint ED Provider: Randolph Olivier Dx/Rx/DC Orders Clinical Impression: Urinary frequency, Obesity Instructions: Overactive Bladder Syndrome (OAB) Prescriptions: No Action levothyroxine 125 mcg tablet 125 mcg PO DAILY omeprazole 40 mg capsule,delayed release(DR/EC) 40 mg PO DAILY Label Comments: take 1 capsule by mouth once daily albuterol sulfate 2.5 MG/3 ML solution for nebulization 2.5 mg inhalation Q6H PRN PRN (Reason: Sob &/Or Wheezing) metoprolol tartrate 25 mg tablet 25 mg PO DAILY multivitamin Tablet 1 tab PO DAILY ondansetron 4 mg tablet,disintegrating 4 mg PO Q8H PRN (Reason: nausea and vomiting) Qty: 10 0RF losartan 50 mg tablet 25 mg PO DAILY spironolactone 25 mg tablet 25 mg PO DAILY Qty: 90 3RF Primary Care Provider: Pete Butler Referrals: Pete Butler DO [Primary Care Provider] - 5-7 Days Disposition Disposition: Home, Self Care
[2022-07-14] MEDS: Albuterol 2.5 MG/3 ML VIAL.NEB. INHALATION (13:51)
[2022-07-14 13:53] VITALS: PULSE 55; RESP 16
== END 2022-07-14 14:32 | disposition home or self-care (01) ==
PROVIDERS: Emergency Provider Emergency Medicine; PCP Preventive Medicine Occupational Medicine; Visit Provider Emergency Medicine
DX: R35.0 Frequency of micturition (principal); E66.9 Obesity, unspecified
CPT/HCPCS: 80048; 81001; 85025; 94640; 99285

== ENCOUNTER 2022-09-02 12:27 | Emergency (ER) | payer MEDICARE, OTHER, SELFPAY ==
[2022-09-02 12:32] VITALS: BP 162/86; PULSE 57; RESP 23; TEMP 35.9; O2SAT 96; BMI 44.3
--- NOTE | 2022-09-02 12:56 | EKG12_ITS ---
Test Reason : SYNCOPE Blood Pressure : / mmHG Vent. Rate : 060 BPM Atrial Rate : 060 BPM P-R Int : 160 ms QRS Dur : 134 ms QT Int : 476 ms P-R-T Axes : 061 026 135 degrees QTc Int : 476 ms Sinus rhythm with occasional Premature ventricular complexes Possible Left atrial enlargement Non-specific intra-ventricular conduction block Septal infarct , age undetermined T wave abnormality, consider lateral ischemia Abnormal ECG Confirmed by LENORA SERVIN, JONATHAN ([id number]), sound editor YOANNA WOODS ([id number]) on 09/03/2022 1:27:34 PM Referred By: Confirmed By:JONATHAN COOLEY MD
--- NOTE | 2022-09-02 12:56 | RAD_ITS ---
STUDY: X-RAY CHEST REASON FOR EXAM: Female, 86 years old. Near syncope . Hypotensive. TECHNIQUE: Single AP portable view of the chest. COMPARISON: Comparison is made with prior study September 11, 2021. FINDINGS: EKG electrodes are seen. Stable elevation of the right hemidiaphragm with stable increased markings at the right lung base suggestive of atelectasis and/or scarring. Stable linear scarring and/or atelectasis at the left lung base as well. There is no demonstrated pleural abnormality. Sternal cerclage wires are present from a prior sternotomy. There is evidence of prior mitral bowel replacement. Normal mediastinum and sebastián. Normal visualized pulmonary arteries. Normal visualized aortic arch and descending thoracic aorta. Normal visualized thoracic spine. Normal visualized ribs, clavicles, and shoulders. There is no demonstrated abnormality of the visualized soft tissue structures of the upper abdomen. RAD/Chest 1 View (Portable) IMPRESSION: Stable elevation of the right hemidiaphragm with stable mild increased linear markings at the lung bases suggestive of atelectasis and/or scarring. Electronically Signed: Anthony Talley MD at 13:38 EDT ,
--- NOTE | 2022-09-02 13:02 | EX.ED.DYSGE1 ---
HPI History of Present Illness Chief Complaint: Syncope Informant: patient Narrative Narrative: She is 89-year-old female with history of COPD, aortic valve stenosis, nonischemic cardiomyopathy, hypothyroidism and thyroid disease presenting after near syncopal episode. Patient notes that she has chronic swelling of her legs that has been a little bit worse lately. She states about a week ago she had skin cancer removed from her right hand. Has been healing well. She states has been on antibiotics has been very active since the procedure. Today she went to the leasing office for her apartment and while she was there she felt like she needed to use the restroom. She started feel lightheaded and like she was going to pass out when she came back from the restroom. She told the staff to call 911. Patient states she did not actually pass out. She also notes that she is felt like she had to urinate today but has not had much urine output. She did take a water pill today. She tells me that cardiology has been adjusting her medications lately. She denies any hematuria or dysuria. Patient's cardiology visit from 05/07/2022 shows that patient reported low blood pressure readings at home. She did been noticing lower extremity edema that is controlled with compression stockings. Had vague complaints at that time. Her Lasix was stopped due to low blood pressure readings at home and continuation of metoprolol and losartan. Patient was seen in our ER on 07/15/2019 Nathan for concern of UTI and lightheadedness. Her potassium was mildly elevated at that time and discharged home. [facility] Medical History Acute respiratory failure with hypoxemia Anemia Arthritis Blackout Body mass index (BMI) 35 or more Cancer Cardiology follow-up encounter COPD (chronic obstructive pulmonary disease) COPD (chronic obstructive pulmonary disease) COPD exacerbation Demand ischemia Essential hypertension Femoral hernia of right side Gastric reflux GERD (gastroesophageal reflux disease) GERD (gastroesophageal reflux disease) Gout Hiatal hernia with gastroesophageal reflux History of eye disorder History of GI bleed Hoarseness Hypothyroid Hypothyroidism Non-ischemic cardiomyopathy Non-smoker Nonrheumatic aortic (valve) stenosis with insufficiency Nonrheumatic mitral (valve) insufficiency Obesity Psoriasis Pulmonary edema Restless legs Seroma after procedure Severe sepsis Shortness of breath on exertion Skin cancer Thyroid disease Vertigo Wears dentures Wears glasses Home Medications albuterol sulfate 2.5 mg/3 mL (0.083 %) solution for nebulization 2.5 mg inhalation Q6H PRN PRN Sob &/Or Wheezing 02/07/18 [History Last Taken 09/09/21] levothyroxine 125 mcg tablet 125 mcg PO DAILY thyroid 05/05/18 [History Last Taken 09/11/21] spironolactone 25 mg tablet 25 mg PO DAILY blood pressure #90 tabs 01/24/21 [Rx Last Taken 09/10/21] omeprazole 40 mg capsule,delayed release 40 mg PO DAILY 05/01/21 [History Last Taken 09/10/21] multivitamin 1 tab PO DAILY supplement 09/11/21 [History Last Taken 09/10/21] ondansetron 4 mg disintegrating tablet 4 mg PO Q8H PRN nausea and vomiting #10 tabs 09/11/21 [Rx Last Taken Unknown] losartan 50 mg tablet 25 mg PO DAILY bp 11/04/21 [History Last Taken Unknown] metoprolol tartrate 25 mg tablet 25 mg PO DAILY blood pressure hold if SBP <90 or HR <46 11/04/21 [History Last Taken Unknown] Allergy/AdvReac Type Severity Reaction Status Date / Time No Known Allergies Allergy Verified 07/14/22 12:19 Family History Mother Hypertension Diabetes Father Hypertension Heart disease CVA (cerebral vascular accident) Cancer Brother Cancer Diabetes Heart disease CVA (cerebral vascular accident) Brother CVA (cerebral vascular accident) Surgical History History of aortic valve replacement with bioprosthetic valve (06/15/17) History of bladder suspension procedure History of esophagogastroduodenoscopy (EGD) History of hysterectomy History of incisional hernia repair History of left heart catheterization (2011) History of Ronen fundoplication (10/21/16) History of partial colectomy History of repair of hiatal hernia (10/21/16) Hx of colonoscopy Social History household members: none Smoking Status: Never smoker second hand exposure: No alcohol intake: never substance use type: does not use caffeine: Yes Type: coffee Number of servings: 1 what type of physical activity do you participate in: none frequency: does not exercise ROS ROS ED Constitutional Constitutional ED: Reports other Details: lightheaded ; Denies chills or fever(s) Cardiovascular Cardiovascular: Denies chest pain Respiratory/Chest Respiratory/Chest: Denies cough Gastrointestinal Gastrointestinal: Denies abdominal pain, nausea or vomiting Genitourinary Genitourinary ED: Reports other Details: urgency ; Denies dysuria or hematuria Musculoskeletal Musculoskeletal: Reports arthralgias and back pain; Denies myalgias Integumentary Reports other Details: surgical wound- right hand ; Denies rash Neurologic Neurologic: Denies headache(s) or weakness Hematologic/Lymphatic Hematologic/Lymphatic: Denies easy bleeding or easy bruising EXAM Physical Exam Const Vital Signs: 09/02/22 12:32 09/02/22 12:34 09/02/22 14:01 Temperature 96.6 F L Temperature Source Temporal Pulse Rate 57 L Pulse Rate [Lying] 58 L Pulse Rate [Sitting (for 1 minute prior to obtaining)] 58 L Pulse Rate [Standing (for 1 minute prior to obtaining)] 70 Respiratory Rate 23 H Respiratory Effort Normal Respiratory Pattern Normal Blood Pressure 162/86 H Blood Pressure [Lying] 160/86 H Blood Pressure [Sitting (for 1 minute prior to obtaining)] 170/80 H Blood Pressure [Standing (for 1 minute prior to obtaining)] 181/96 H Blood Pressure Mean 111 Blood Pressure Mean [Lying] 110 Blood Pressure Mean [Sitting (for 1 minute prior to obtaining)] 110 Blood Pressure Mean [Standing (for 1 minute prior to obtaining)] 124 Pulse Ox 96 Oxygen Delivery Method Room Air 09/02/22 14:41 Temperature Temperature Source Pulse Rate 59 L Pulse Rate [Lying] Pulse Rate [Sitting (for 1 minute prior to obtaining)] Pulse Rate [Standing (for 1 minute prior to obtaining)] Respiratory Rate 21 H Respiratory Effort Respiratory Pattern Blood Pressure 158/75 H Blood Pressure [Lying] Blood Pressure [Sitting (for 1 minute prior to obtaining)] Blood Pressure [Standing (for 1 minute prior to obtaining)] Blood Pressure Mean 102 Blood Pressure Mean [Lying] Blood Pressure Mean [Sitting (for 1 minute prior to obtaining)] Blood Pressure Mean [Standing (for 1 minute prior to obtaining)] Pulse Ox 96 Oxygen Delivery Method Room Air Positive well nourished and well developed General Appearance ED: well developed and NAD; Negative for diaphoretic HEENT Reports moist mucous membranes Eyes PERRL and EOMs intact bilaterally Neck supple and no JVD Chest Wall inspection of chest normal and palpation of chest normal Resp normal respiratory effort and clear to auscultation bilaterally Cardio regular rate, regular rhythm and no murmurs GI normal to inspection, nondistended, normoactive bowel sounds and non-tender Extremity normal to inspection Extremity Narrative: Bilateral pitting edema of the lower extremities up to the midshin 1+ General Extremety ED: Yes edema; Negative for tenderness General Extremity: edema Neuro oriented x3 Sensorium / Orientation: alert Motor Exam: general weakness Psych mental status grossly normal Mood & Affect: Negative for anxious Skin no rashes or lesions noted Skin Narrative: Healing surgical incision of the dorsum of the right hand with sutures in place MDM MDM MDM Narrative Medical decision making narrative: Patient is evaluated after an episode of lightheadedness/near syncope. She also had some urgency today. Chart review shows that patient actually had similar ER presentation in the past with no diagnosis. Given the patient's age and comorbidities cardiac work-up is obtained. EKG shows no acute process on my interpretation shows sinus rhythm with PVCs, nonspecific intraventricular block and T wave inversions in leads I and aVL which are chronic. Patient does not have any arrhythmia on telemetry and orthostatic vital signs are negative. Clinically patient not appear dehydrated. Her BNP is actually downtrending and while she is complaining of worsening lower extremity edema she does not appear acutely fluid overloaded. Creatinine is at her baseline at 1.13. Previously patient had a mildly elevated potassium but is normal today at 3.7. Urinalysis obtained through straight catheterization is grossly normal and not consistent with dehydration or infection. Chest x-ray to read by myself as well as radiology shows a stable right hemidiaphragm with chronic changes and no acute process. Patient has stable high since he troponins x2 with no significant delta per our protocol. I did discuss possible admission for jail placement for generalized debility and weakness however patient states she can still take care of herself at home and does not think she has been made for that. I believe from a cardiopulmonary standpoint she can be discharged home. She does not have an IV source of infection or other cause of her episode of lightheadedness today. Is possible she could have some mild deconditioning associate with her recent surgery and antibiotics. Patient is counseled that we will be okay to restart her Lasix every other day until she can follow-up further with her oncologist. We will give her hold parameters. Patient verbalized agreement understand this plan. Patient discharged home in stable condition. History & Record Review Additional record(s) reviewed:: Prior outpatient record (cardiology visit- see HPI) Lab Data Attestation: I reviewed the patient's lab results. Labs: Laboratory Results - last 24 hr 09/02/22 09/02/22 09/02/22 12:39 13:16 14:38 WBC 7.7 RBC 4.46 Hgb 13.7 Hct 42.5 MCV 95.3 MCH 30.7 MCHC 32.2 RDW Std Deviation 48.4 H RDW Coeff of Fabricio 13.8 Plt Count 154 MPV 12.1 H Immature Gran % (Auto) 0.500 Neut % (Auto) 65.0 Lymph % (Auto) 22.1 [place] % (Auto) 10.6 H Eos % (Auto) 0.9 Baso % (Auto) 0.9 Absolute Neuts (auto) 5.0 Absolute Lymphs (auto) 1.71 Nucleated RBC % 0 Sodium 139 Potassium 3.7 Chloride 105 Carbon Dioxide 28.0 Anion Gap 6 BUN 25 H Creatinine 1.13 H Estim Creat Clear Calc 26.97 Est GFR (MDRD) Af Amer 59 L Est GFR (MDRD) Non-Af 48 L BUN/Creatinine Ratio 22.1 H Glucose 78 Calcium 8.5 Troponin I High Sens 19 26 B-Natriuretic Peptide 158.7 H Urine Color Yellow Urine Clarity Sl. Cloudy Urine pH 6.5 Ur Specific [place] 1.010 Urine Protein Negative Urine Glucose (UA) Normal Urine Ketones Negative Urine Occult Blood Negative Urine Nitrite Negative Urine Bilirubin Negative Urine Urobilinogen Normal Ur Leukocyte Esterase Negative Urine RBC 0 SEEN Urine WBC 0 SEEN Ur Squamous Epith Cells 0 SEEN Urine Bacteria 0 SEEN Urine Mucus 0 SEEN Radiography Diagnostic Testing: Clinical Impression(s) from Imaging Studies Chest X-Ray 09/02/22 12:56 IMPRESSION: Stable elevation of the right hemidiaphragm with stable mild increased linear markings at the lung bases suggestive of atelectasis and/or scarring. Electronically Signed: Anthony Talley MD at 13:38 EDT , Rhythm Strip Rhythm Strip: Sinus Rhythm Rate: 60 Ectopy: PVC(s) EKG Initial EKG: Attestation: I personally reviewed and interpreted this EKG as follows: Interpretation: Sinus Rhythm Comments: Normal sinus rhythm at a rate of 60 bpm with PVC Nonspecific intraventricular block T wave inversions in 1 and aVL No significant change from the prior EKGs Discharge Plan Triage Chief Complaint: Syncope ED Provider: Lzu Maria Newton Dx/Rx/DC Orders Clinical Impression: Urgency of urination, Near syncope Instructions: ED Near-Fainting, Uncertain Cause Prescriptions: No Action levothyroxine 125 mcg tablet 125 mcg PO DAILY omeprazole 40 mg capsule,delayed release(DR/EC) 40 mg PO DAILY Patient Comments: take 1 capsule by mouth once daily albuterol sulfate 2.5 MG/3 ML solution for nebulization 2.5 mg inhalation Q6H PRN PRN (Reason: Sob &/Or Wheezing) metoprolol tartrate 25 mg tablet 25 mg PO DAILY multivitamin Tablet 1 tab PO DAILY ondansetron 4 mg tablet,disintegrating 4 mg PO Q8H PRN (Reason: nausea and vomiting) Qty: 10 0RF losartan 50 mg tablet 25 mg PO DAILY spironolactone 25 mg tablet 25 mg PO DAILY Qty: 90 3RF Primary Care Provider: Pete Butler Referrals: Pete Butler DO [Primary Care Provider] - Activity Restrictions/Additional Instructions: Your work-up today was largely normal. No signs of infection, urinary tract infection or stress on the heart. At this time I think you are safe to go home. Your potassium is now on the low end of normal. It is safe for you to resume your Lasix. I would recommend taking it every other day. If your blood pressure goes below 100 for the top number (systolic) please hold this medicine. If you start to have worsening dizziness or lightheadedness while taking the medicine please stop it again. Continue to wear your compression socks. As we discussed please follow-up with the cardiology office and call today or tomorrow to arrange for close outpatient follow-up. Return to the ER if you have a progression or worsening of your symptoms. Continue taking your other medications as prescribed at home.
[2022-09-02 13:17] LABS: Absolute Lymphocyte Count 1.71 X10^3/uL (0.83-4.51); Basophil# 0.07 X10^3/uL; Basophil% 0.9 % (0-1); Eosinophil# 0.07 X10^3/uL; Eosinophils% 0.9 % (0-5); Hematocrit 42.5 % (37-47); Hemoglobin 13.7 g/dL (12.0-15.0); Lymphocyte # 1.71 X10^3/ul (0.83-4.51); Lymphocyte % 22.1 % (19-41); Mean Corp Hgb Conc 32.2 g/dL (32-36); Mean Corpuscular Hgb 30.7 pg (27.0-32.0); Mean Corpuscular Volume 95.3 fL (81-99); Mean Platelet Vol. 12.1 fl (6.2-12.0); Monocyte# 0.82 X10^3/uL; Monocyte% 10.6 % (0-10); NRBC Flagged by Analyzer 0 % (0-5); Neutrophil # 5.02 X10^3/uL (2.7-7.7); Platelet Count 154 K/mm3 (150-450); RBC Distribution Width CV 13.8 % (11.6-14.6); RBC Distribution Width SD 48.4 fl (35.1-43.9); Red Blood Count 4.46 M/mm3 (4.2-5.4); White Blood Count 7.7 K/mm3 (4.4-11.0)
[2022-09-02 13:22] LABS: Bacteria 0 SEEN /hpf (None Seen); Mucous, Urine 0 SEEN /hpf (<or=2+); Red Blood Cells-Urine 0 SEEN /hpf (0-5); Squamous Epithelial Cells - UA 0 SEEN /hpf (5-10); White Blood Cells 0 SEEN /hpf (0-5)
[2022-09-02 13:27] LABS: Color, Urine Yellow (Yellow); Glucose, Dipstick Normal (Normal); Ketone-Dipstick Negative (Negative); Leukocyte Esterase-Dipstick Negative /ul (Negative); Nitrite-Dipstick Negative (Negative); Occult Blood-Urine Negative /ul (Negative); Protein-Dipstick Negative (Negative); Urine Bilirubin Dipstick Negative (Negative); Urine Clarity Sl. Cloudy (Clear); Urine Urobilinogen Normal (Normal); Urine pH 6.5 (5.0 - 8.0)
[2022-09-02 13:37] LABS: BNP,B-Type NATRIURETIC PEPTIDE 158.7 pg/mL (0-100)
[2022-09-02 13:38] LABS: Anion Gap 6 (5-15); BUN 25 mg/dL (7-18); BUN/Creat Ratio 22.1 RATIO (10-20); Calcium,Total 8.5 mg/dL (8.5-10.1); Chloride 105 mmol/L (98-107); Creatinine, Serum 1.13 mg/dL (0.55-1.02); EST Glomerular Filtration Rate 48 mL/min (>60); Est Glom Filt Rate - Afr Amer 59 mL/min (>60); Estimated Creatinine Clearance 26.97 ml/min; Glucose 78 mg/dL (74-106); Potassium 3.7 mmol/L (3.5-5.1); Sodium Level 139 mmol/L (136-145); Troponin-I HS (w/2H Reflex) 19 pg/mL (3.0-54.0)
[2022-09-02 14:01] VITALS: BP 160/86; BP 170/80; BP 181/96; PULSE 58; PULSE 70
[2022-09-02 14:41] VITALS: BP 158/75; PULSE 59; RESP 21; O2SAT 96
[2022-09-02 15:13] LABS: Reflex Troponin-HS? (from REC) Y
[2022-09-02 15:57] LABS: Troponin-I HS 26 pg/mL (3.0-54.0)
[2022-09-02 16:19] VITALS: BP 157/82; PULSE 62; RESP 18; O2SAT 95
== END 2022-09-02 16:27 | disposition home or self-care (01) ==
PROVIDERS: Emergency Provider Emergency Medicine; PCP Preventive Medicine Occupational Medicine; Visit Provider Emergency Medicine
DX: R39.15 Urgency of urination (principal); I42.8 Other cardiomyopathies; R55 Syncope and collapse
CPT/HCPCS: 71045; 80048; 81001; 83880; 84484; 85025; 93005; 99285; P9612; A4216

== ENCOUNTER → 2022-10-09 | Outpatient (CLI) | payer MEDICARE, OTHER, SELFPAY ==
[2022-10-09 13:07] LABS: ALB/GLOB Ratio 1.1 RATIO (0.9-2.4); AST(SGOT) 16 U/L (15-37); Alanine Aminotransfer ALT/SGPT 19 U/L (13-56); Albumin, Serum 3.5 g/dL (3.2-5.0); Alkaline Phosphatase 87 U/L (45-117); Anion Gap 6 (5-15); BUN 22 mg/dL (7-18); BUN/Creat Ratio 17.3 RATIO (10-20); Calcium,Total 8.8 mg/dL (8.5-10.1); Chloride 106 mmol/L (98-107); Creatinine, Serum 1.27 mg/dL (0.55-1.02); EST Glomerular Filtration Rate 42 mL/min (>60); Est Glom Filt Rate - Afr Amer 51 mL/min (>60); Globulin 3.3 g/dL (2.2-4.2); Glucose 89 mg/dL (74-106); Potassium 4.3 mmol/L (3.5-5.1); Protein, Total 6.8 g/dL (6.4-8.2); Sodium Level 142 mmol/L (136-145)
== END | disposition home or self-care (01) ==
LOC: LABSPEC 12:07
PROVIDERS: PCP Preventive Medicine Occupational Medicine; Referring Provider Preventive Medicine Occupational Medicine; Visit Provider Preventive Medicine Occupational Medicine
DX: Z00.00 Encounter for general adult medical examination without abnormal findings (principal)
CPT/HCPCS: 80053; 87086; 87088; 88305

== ENCOUNTER 2022-12-20 17:27 | Emergency (ER) | payer MEDICARE, OTHER, SELFPAY ==
[2022-12-20 17:28] VITALS: BP 158/76; PULSE 61; RESP 19; TEMP 35.9; O2SAT 96; BMI 42.8
--- NOTE | 2022-12-20 17:40 | ED.RN ---
pt reports recent uti severe infection effecting idneys was transfered from [place] to [place] i almost then was [place] [facility] went home and now i am back
--- NOTE | 2022-12-20 17:55 | CT_ITS ---
STUDY: CT BRAIN WITHOUT CONTRAST REASON FOR EXAM: Female, 87 years old. Weakness RADIATION DOSAGE (If Supplied By Facility): CTDIvol = ( 44.99 ) mGy, DLP = ( 779.24 ) mGycm TECHNIQUE: Transaxial CT imaging of the brain was performed without administration of intravenous contrast material. Individualized dose optimization techniques were used for this CT. COMPARISON: No relevant priors. FINDINGS: Normal soft tissue structures. Normal calvarium. Normal size ventricles and extra-axial spaces for the patient''s age. Bilateral white matter microangiopathic ischemic changes of the cerebral hemispheres. Normal basal ganglia and thalami. Normal brainstem. Normal cerebellum. There is no intracranial hemorrhage. There are no findings of an acute ischemic infarction. Normal visualized paranasal sinuses. CT/Brain/Head without Contrast IMPRESSION: Age-related changes CT scan of the brain. Electronically Signed: Tre Lazar DO at 18:36 EST ,
--- NOTE | 2022-12-20 17:56 | EKG12_ITS ---
Test Reason : Blood Pressure : / mmHG Vent. Rate : 066 BPM Atrial Rate : 066 BPM P-R Int : 150 ms QRS Dur : 110 ms QT Int : 464 ms P-R-T Axes : 071 059 098 degrees QTc Int : 486 ms Sinus rhythm with occasional Premature ventricular complexes Possible Left atrial enlargement Anteroseptal infarct , age undetermined Abnormal ECG Confirmed by LENORA SERVIN, JONATHAN ([id number]), newspaper managing editor YOANNA WOODS ([id number]) on 12/29/2022 2:10:29 PM Referred By: Confirmed By:JONATHAN COOLEY MD
--- NOTE | 2022-12-20 18:07 | EX.ED.DYSGE1 ---
HPI History of Present Illness Chief Complaint: Diarrhea Informant: patient Narrative Narrative: Patient presents secondary to generalized weakness. She reports that she was in the hospital at [facility] for sepsis with a UTI and then transferred to the [place]. She was there for 20 days and then discharged to her home with home health for 6 weeks. She thinks home health stopped coming about a month ago. She has had progressive weakness since this time. She states several days ago she had diarrhea that stopped, but recurred today. She reports having 2 episodes this morning but seems to be improved this afternoon. She has chronic shortness of breath that is not changed from baseline. She is on oxygen when I evaluate her she states she is not normally on home oxygen. She states she believes her oxygen level dropped into the 80s in the squad and they placed her on nasal cannula. [facility] Medical History (Updated 12/20/22 @ 20:[address] Nnanette Grijalva MD) Acute respiratory failure with hypoxemia Anemia Arthritis Blackout Body mass index (BMI) 35 or more Cancer Cardiology follow-up encounter COPD (chronic obstructive pulmonary disease) Demand ischemia Essential hypertension Femoral hernia of right side Gastric reflux GERD (gastroesophageal reflux disease) Gout Hiatal hernia with gastroesophageal reflux History of eye disorder History of GI bleed Hoarseness Hypothyroidism Non-ischemic cardiomyopathy Non-smoker Nonrheumatic aortic (valve) stenosis with insufficiency Nonrheumatic mitral (valve) insufficiency Obesity Psoriasis Pulmonary edema Restless legs Seroma after procedure Severe sepsis Shortness of breath on exertion Skin cancer Thyroid disease Vertigo Wears dentures Wears glasses Home Medications albuterol sulfate 2.5 mg/3 mL (0.083 %) solution for nebulization 2.5 mg inhalation Q6H PRN PRN Sob &/Or Wheezing 02/07/18 [History Last Taken 09/09/21] levothyroxine 125 mcg tablet 125 mcg PO DAILY thyroid 05/05/18 [History Last Taken 09/11/21] omeprazole 40 mg capsule,delayed release 40 mg PO DAILY 05/01/21 [History Last Taken 09/10/21] multivitamin 1 tab PO DAILY supplement 09/11/21 [History Last Taken 09/10/21] ondansetron 4 mg disintegrating tablet 4 mg PO Q8H PRN nausea and vomiting #10 tabs 09/11/21 [Rx Last Taken Unknown] losartan 50 mg tablet 25 mg PO DAILY bp 11/04/21 [History Last Taken Unknown] furosemide 20 mg tablet (Lasix) 20 mg PO DAILY 10/02/22 [History Last Taken Unknown] metoprolol tartrate 25 mg tablet 12.5 mg PO BID blood pressure hold if SBP <90 or HR <46 10/02/22 [History Last Taken Unknown] nitrofurantoin monohydrate/macrocrystals 100 mg capsule (Macrobid) 100 mg PO Q12H 5 days #10 caps 12/20/22 [Rx Last Taken Unknown] Allergy/AdvReac Type Severity Reaction Status Date / Time No Known Allergies Allergy Verified 12/20/22 17:28 Family History Mother Hypertension Diabetes Father Hypertension Heart disease CVA (cerebral vascular accident) Cancer Brother Cancer Diabetes Heart disease CVA (cerebral vascular accident) Brother CVA (cerebral vascular accident) Surgical History History of aortic valve replacement with bioprosthetic valve (06/15/17) History of bladder suspension procedure History of esophagogastroduodenoscopy (EGD) History of hysterectomy History of incisional hernia repair History of left heart catheterization (2011) History of Ronen fundoplication (10/21/16) History of partial colectomy History of repair of hiatal hernia (10/21/16) Hx of colonoscopy Social History household members: none Smoking Status: Never smoker second hand exposure: No alcohol intake: never substance use type: does not use caffeine: Yes Type: coffee Number of servings: 1 what type of physical activity do you participate in: none frequency: does not exercise ROS ROS ED Constitutional Constitutional ED: Denies chills or fever(s) ENT ENT ED: Denies rhinorrhea Cardiovascular Cardiovascular: Reports palpitations; Denies chest pain Respiratory/Chest Respiratory/Chest: Reports dyspnea; Denies cough Gastrointestinal Gastrointestinal: Reports diarrhea Neurologic Neurologic: Reports weakness; Denies headache(s) or paresthesias Psychiatric Psychiatric: Denies anxiety EXAM Physical Exam Const Vital Signs: 12/20/22 17:28 12/20/22 17:34 12/20/22 20:27 Temperature 96.7 F L Temperature Source Temporal Pulse Rate 61 61 Respiratory Rate 19 H 15 Respiratory Pattern Normal Blood Pressure 158/76 H 143/80 H Blood Pressure Mean 103 101 Pulse Ox 96 97 Oxygen Delivery Method Room Air Room Air Positive well nourished and well developed General Appearance ED: well developed HEENT Reports moist mucous membranes Eyes EOMs intact bilaterally Chest Wall inspection of chest normal and palpation of chest normal Resp normal respiratory effort and clear to auscultation bilaterally Cardio regular rate and regular rhythm GI non-tender Palpation: soft Extremity Extremity Narrative: Mild bilateral lower extremity edema, symmetric. Neuro oriented x3 Neuro Narrative: Generalized weakness but no focal deficits. Skin no rashes or lesions noted MDM MDM MDM Narrative Medical decision making narrative: Patient placed on elevated guard. IV line established. Labwork obtained to evaluate for leukocytosis, anemia, and electrolyte derangement. Chest x-ray obtained to evaluate for acute lung pathology, cardiac size, or mediastinal abnormality. EKG obtained to evaluate for cardiac arrhythmia/ischemia. CT scan of the head obtained given generalized weakness and decline. Urinalysis obtained to evaluate for infection/hematuria. History & Record Review Discussion w/independent historian: EMS personnel and Patient Additional record(s) reviewed:: Prior inpatient record, Prior ED visit and Prior labs Lab Data Attestation: I reviewed the patient's lab results. Labs: Laboratory Results - last 24 hr 12/20/22 12/20/22 17:45 19:35 WBC 8.3 RBC 4.68 Hgb 14.1 Hct 44.1 MCV 94.2 MCH 30.1 MCHC 32.0 RDW Std Deviation 47.8 H RDW Coeff of Fabricio 14.0 Plt Count 157 MPV 11.8 Immature Gran % (Auto) 0.400 Neut % (Auto) 70.4 H Lymph % (Auto) 19.8 [place] % (Auto) 7.8 Eos % (Auto) 1.1 Baso % (Auto) 0.5 Absolute Neuts (auto) 5.8 Absolute Lymphs (auto) 1.64 Nucleated RBC % 0 Sodium 135 L Potassium 4.0 Chloride 102 Carbon Dioxide 28.0 Anion Gap 5 BUN 28 H Creatinine 1.44 H Estim Creat Clear Calc 20.77 Est GFR (MDRD) Af Amer 44 L Est GFR (MDRD) Non-Af 37 L BUN/Creatinine Ratio 19.4 Glucose 181 H Calcium 8.4 L Total Bilirubin 0.30 Direct Bilirubin 0.12 AST 19 ALT 25 Alkaline Phosphatase 65 Troponin I High Sens 25 Total Protein 6.8 Albumin 3.3 Globulin 3.5 Urine Color Yellow Urine Clarity Clear Urine pH 6.0 Ur Specific [place] 1.010 Urine Protein 15 H Urine Glucose (UA) Normal Urine Ketones Negative Urine Occult Blood Negative Urine Nitrite Negative Urine Bilirubin Negative Urine Urobilinogen Normal Ur Leukocyte Esterase 500 H Urine RBC 0 SEEN Urine WBC 10-25 SEEN Ur Squamous Epith Cells 0-5 SEEN Urine Bacteria 1+ Urine Mucus 0 SEEN Radiography Chest X-Ray - ED: 1 View, Read by ED Physician and - (Chronic changes with atelectasis/scarring at the right base. Actually improved when compared to prior study.) Diagnostic Testing: Clinical Impression(s) from Imaging Studies Brain CT 12/20/22 17:55 IMPRESSION: Age-related changes CT scan of the brain. Electronically Signed: Tre Lazar DO at 18:36 EST , Chest X-Ray 12/20/22 18:10 IMPRESSION: Mild right pleural effusion with possible infiltrate. Bilateral basilar atelectasis. Electronically Signed: Tre Lazar DO at 18:32 EST , EKG Initial EKG: Attestation: I personally reviewed and interpreted this EKG as follows: Interpretation: Sinus Rhythm (Sinus at 66 with no acute ischemia. Occasional PVCs.) Treatment and Re-Evaluation :: CBC was normal white count 8.3 with a hemoglobin of 14.1. Chemistry studies reveal a sodium of 135 and a potassium of 4.0. BUN is 28 and creatinine is 1.44. This is at her baseline. Glucose is 181. LFTs are unremarkable. Troponin is normal at 25. Urinalysis does reveal 500 leukocyte esterase with 10-25 white cells and 1+ bacteria. Portable chest x-ray reveals chronic changes of the right base, improved when compared to prior study per my interpretation. Radiology interpretation is reviewed. I spoke with staff who ambulated the patient to the restroom and back. They report that she seems somewhat short of breath, however O2 sat was 93% on return to the room. She was able to ambulate without difficulty. At this time I do not have a medical reason to keep her in the hospital. We will send a urine culture and give her Macrobid for her UTI. Return instructions are given. Discharge Plan Triage Chief Complaint: Diarrhea ED Provider: Nannette Grijalva Dx/Rx/DC Orders Clinical Impression: UTI (urinary tract infection), Weakness Instructions: ED Cystitis Female Adult, ED Weakness (Uncertain Cause) Prescriptions: New nitrofurantoin monohyd/m-cryst [Macrobid] 100 mg capsule 100 mg PO Q12H 5 Days Qty: 10 0RF Rx Instructions: must administer with a meal/food No Action levothyroxine 125 mcg tablet 125 mcg PO DAILY omeprazole 40 mg capsule,delayed release(DR/EC) 40 mg PO DAILY Patient Comments: take 1 capsule by mouth once daily furosemide [Lasix] 20 mg tablet 20 mg PO DAILY albuterol sulfate 2.5 MG/3 ML solution for nebulization 2.5 mg inhalation Q6H PRN PRN (Reason: Sob &/Or Wheezing) metoprolol tartrate 25 mg tablet 12.5 mg PO BID multivitamin Tablet 1 tab PO DAILY ondansetron 4 mg tablet,disintegrating 4 mg PO Q8H PRN (Reason: nausea and vomiting) Qty: 10 0RF losartan 50 mg tablet 25 mg PO DAILY Primary Care Provider: Pete Butler Referrals: Pete Butler DO [Primary Care Provider] - 1 Week Disposition Disposition: Home, Self Care
[2022-12-20] MEDS: 0.9% Normal Saline (500mL Bag) 500 ML 1000 ML IV (18:09)
--- NOTE | 2022-12-20 18:10 | RAD_ITS ---
INDICATION: sob EXAMINATION/TECHNIQUE: X-RAY - XR Chest 1 View COMPARISON: September 02, 2022 FINDINGS: LINES/DEVICES: Stable sternotomy wires. There is a prosthetic cardiac valve. LUNGS: Mild right pleural effusion with possible infiltrate. Bilateral basilar atelectasis. No pneumothorax. MEDIASTINUM AND CARDIOVASCULAR STRUCTURES: Cardiac silhouette not enlarged. Central airways and mediastinal contour are unremarkable. BONES AND SOFT TISSUES: Unremarkable. RAD/Chest 1 View (Portable) IMPRESSION: Mild right pleural effusion with possible infiltrate. Bilateral basilar atelectasis. Electronically Signed: Tre Lazar DO at 18:32 EST Reading Location ID and State: [facility] / [place] Tel [phone], Service support ,
[2022-12-20 18:11] LABS: Absolute Lymphocyte Count 1.64 X10^3/uL (0.83-4.51); Absolute Neutrophil Count 5.8 X10^3/uL (2.0-7.7); Basophil# 0.04 X10^3/uL; Basophil% 0.5 % (0-1); Eosinophil# 0.09 X10^3/uL; Eosinophils% 1.1 % (0-5); Hematocrit 44.1 % (37-47); Hemoglobin 14.1 g/dL (12.0-15.0); Lymphocyte # 1.64 X10^3/ul (0.83-4.51); Lymphocyte % 19.8 % (19-41); Mean Corpuscular Hgb 30.1 pg (27.0-32.0); Mean Corpuscular Volume 94.2 fL (81-99); Mean Platelet Vol. 11.8 fl (6.2-12.0); Monocyte# 0.65 X10^3/uL; Monocyte% 7.8 % (0-10); NRBC Flagged by Analyzer 0 % (0-5); Neutrophil # 5.84 X10^3/uL (2.7-7.7); Neutrophil % 70.4 % (47-70); Platelet Count 157 K/mm3 (150-450); RBC Distribution Width SD 47.8 fl (35.1-43.9); Red Blood Count 4.68 M/mm3 (4.2-5.4); White Blood Count 8.3 K/mm3 (4.4-11.0)
[2022-12-20 18:29] LABS: AST(SGOT) 19 U/L (15-37); Alanine Aminotransfer ALT/SGPT 25 U/L (13-56); Albumin, Serum 3.3 g/dL (3.2-5.0); Alkaline Phosphatase 65 U/L (45-117); Anion Gap 5 (5-15); BUN 28 mg/dL (7-18); BUN/Creat Ratio 19.4 RATIO (10-20); Bilirubin, Direct 0.12 mg/dL (0.00-0.30); Calcium,Total 8.4 mg/dL (8.5-10.1); Chloride 102 mmol/L (98-107); Creatinine, Serum 1.44 mg/dL (0.55-1.02); EST Glomerular Filtration Rate 37 mL/min (>60); Est Glom Filt Rate - Afr Amer 44 mL/min (>60); Estimated Creatinine Clearance 20.77 ml/min; Globulin 3.5 g/dL (2.2-4.2); Glucose 181 mg/dL (74-106); Protein, Total 6.8 g/dL (6.4-8.2); Sodium Level 135 mmol/L (136-145); Troponin-I HS 25 pg/mL (3.0-54.0)
[2022-12-20 19:43] LABS: Mucous, Urine 0 SEEN /hpf (<or=2+); Red Blood Cells-Urine 0 SEEN /hpf (0-5)
[2022-12-20 19:52] LABS: Color, Urine Yellow (Yellow); Glucose, Dipstick Normal (Normal); Ketone-Dipstick Negative (Negative); Leukocyte Esterase-Dipstick 500 /ul (Negative); Nitrite-Dipstick Negative (Negative); Occult Blood-Urine Negative /ul (Negative); Protein-Dipstick 15 mg/dl (Negative); Urine Bilirubin Dipstick Negative (Negative); Urine Clarity Clear (Clear); Urine Urobilinogen Normal (Normal)
[2022-12-20 20:09] LABS: Bacteria 1+ /hpf (None Seen); Squamous Epithelial Cells - UA 0-5 SEEN /hpf (5-10); White Blood Cells 10-25 SEEN /hpf (0-5)
[2022-12-20 20:27] VITALS: BP 143/80; PULSE 61; RESP 15; O2SAT 97
[2022-12-20] MEDS: Nitrofurantoin Macrocrystals 100 MG Capsule PO (21:03)
[2022-12-20 21:18] VITALS: BP 148/99; PULSE 60; RESP 15; O2SAT 97
== END 2022-12-20 21:27 | disposition home or self-care (01) ==
PROVIDERS: Emergency Provider Emergency Medicine; PCP Preventive Medicine Occupational Medicine; Visit Provider Emergency Medicine
DX: N39.0 Urinary tract infection, site not specified (principal); R53.1 Weakness
CPT/HCPCS: 70450; 71045; 80048; 80076; 81001; 84484; 85025; 87086; 87088; 87428; 93005; 96360; 96361; 99285; J7030; A4216

== ENCOUNTER 2023-02-23 16:15 | Emergency (ER) | payer MEDICARE, OTHER, SELFPAY ==
[2023-02-23 16:16] VITALS: BP 163/106; PULSE 79; RESP 16; TEMP 36.3; O2SAT 94; BMI 44.9
--- NOTE | 2023-02-23 16:29 | EDS_ITS ---
HPI History of Present Illness Chief Complaint: Constipation Informant: patient Narrative Narrative: Patient presents with constipation and then rectal bleeding. Patient has a long history of constipation. She states she normally takes something to move her bowels and it works. She last moved her bowels normally 2 days ago. She tried some milk of magnesia and MiraLAX. She has been straining multiple times since yesterday. Today when she strained she was about to have a bowel movement and she got some blood out. She did not have a significant bowel movement with this. She is not lightheaded or dizzy. She has not had continued bleeding. She denies being on blood thinners including no baby aspirin or aspirin. No history of GI bleed. She did have a partial small bowel resection related to what sounds like incarcerated hernia years ago. She states she has not had any abdominal pain at any time. She still eating and drinking fine. Medication changes including decreasing her levothyroxine from 125 to 112-1/2 mcg a couple weeks ago. Her Lasix was also doubled from 20 to 40 mg a day 12 days ago. This was done because of swelling in her legs which is now gone. She states she has been urinating more but it does not burn or have an odor. [facility] Medical History Acute respiratory failure with hypoxemia Anemia Arthritis Blackout Body mass index (BMI) 35 or more Cancer Cardiology follow-up encounter COPD (chronic obstructive pulmonary disease) Demand ischemia Essential hypertension Femoral hernia of right side Gastric reflux GERD (gastroesophageal reflux disease) Gout Hiatal hernia with gastroesophageal reflux History of eye disorder History of GI bleed Hoarseness Hypothyroidism Non-ischemic cardiomyopathy Non-smoker Nonrheumatic aortic (valve) stenosis with insufficiency Nonrheumatic mitral (valve) insufficiency Obesity Psoriasis Pulmonary edema Restless legs Seroma after procedure Severe sepsis Shortness of breath on exertion Skin cancer Thyroid disease Vertigo Wears dentures Wears glasses Home Medications albuterol sulfate 2.5 mg/3 mL (0.083 %) solution for nebulization 2.5 mg inhalation Q6H PRN PRN Sob &/Or Wheezing 02/07/18 [History Last Taken 09/09/21] levothyroxine 125 mcg tablet 125 mcg PO DAILY thyroid 05/05/18 [History Last Taken 09/11/21] omeprazole 40 mg capsule,delayed release 40 mg PO DAILY 05/01/21 [History Last Taken 09/10/21] multivitamin 1 tab PO DAILY supplement 09/11/21 [History Last Taken 09/10/21] ondansetron 4 mg disintegrating tablet 4 mg PO Q8H PRN nausea and vomiting #10 tabs 09/11/21 [Rx Last Taken Unknown] Lactobacillus acidophilus (Acidophilus capsule) 100 mg PO DAILY 01/28/23 [History Last Taken Unknown] losartan 25 mg tablet 25 mg PO DAILY 01/28/23 [History Last Taken Unknown] melatonin 5 mg tablet 5 mg PO QHS 01/28/23 [History Last Taken Unknown] nystatin 100,000 unit/mL oral suspension 5 ml PO Q6H 01/28/23 [History Last Taken Unknown] furosemide 40 mg tablet 40 mg PO DAILY dose increased by Dr. Rupert Garcia 02/11/23 [History Last Taken Unknown] Allergy/AdvReac Type Severity Reaction Status Date / Time No Known Allergies Allergy Verified 01/28/23 11:00 Family History Mother Hypertension Diabetes Father Hypertension Heart disease CVA (cerebral vascular accident) Cancer Brother Cancer Diabetes Heart disease CVA (cerebral vascular accident) Brother CVA (cerebral vascular accident) Surgical History History of aortic valve replacement with bioprosthetic valve (06/15/17) History of bladder suspension procedure History of esophagogastroduodenoscopy (EGD) History of hysterectomy History of incisional hernia repair History of left heart catheterization (2011) History of Ronen fundoplication (10/21/16) History of partial colectomy History of repair of hiatal hernia (10/21/16) Hx of colonoscopy Social History household members: none housing: apartment Smoking Status: Never smoker second hand exposure: No alcohol intake: never substance use type: does not use caffeine: Yes Type: coffee Number of servings: 1 what type of physical activity do you participate in: none frequency: does not exercise ROS ROS ED ROS Narrative A complete review of systems was performed and is negative except as documented in the history of present illness. Some specific details below. Constitutional: No recent fevers or chills. EYE: No visual complaints or pain. ENT: No difficulty swallowing. No swelling. No pain. CV: No chest pain or palpitations. Respiratory: No dyspnea. No hemoptysis. No difficulty taking breaths. GI: Please see history of present illness. Patient states that she has had rectal bleeding before when she has passed hard stools or was badly constipated. But this seems to be more blood than typical. : No frequency dysuria or hematuria. Musculoskeletal: No recent trauma. No pains. Skin: No rash. Nondiaphoretic. Neuro: No weakness or numbness. Endocrine: No polyuria or polydipsia. EXAM Physical Exam Narrative Exam Narrative: CONSTITUTIONAL: Patient is nontoxic in appearance. The patient looks comfortable. HEENT: No notable trauma. Mucous membranes moist. No sinus tenderness. No indication of pain with swallowing. EYES: No conjunctival injection. No pallor. CARDIOVASCULAR: Regular rate. Regular rhythm. Pulses are good. RESPIRATORY: No respiratory distress. Breathing is unlabored. No wheezes. No rhonchi. No rales. No pain with a deep breath. GASTROINTESTINAL: Not distended. Bowel sounds are normal. No tenderness. No guarding. No rebound. No palpable mass. No bruit. External abdominal exam is quite benign. Rectal: There is a little bit of blood on a pad. There is some irritation around the rectum. There may be a small fissure. I do not see any hemorrhoids. Digital exam shows some discomfort. But I do not feel any internal hemorrhoids. There is a small amount of stool toward my fingertip but nothing at the lower rectum of significance. Stool seems to be medium brown. It is not black. GENITOURINARY: No tenderness over the bladder. No CVA tenderness. MUSCULOSKELETAL: Atraumatic. No peripheral edema. No cord. No tenderness along the deep venous system. No asymmetry. NEUROLOGICAL: Patient is alert and appropriate. No focal deficit noted. SKIN: No noted rashes. No diaphoresis. PSYCHIATRIC: Patient is calm. Mood is appropriate. Const Vital Signs: 02/23/23 16:16 Temperature 97.4 F L Temperature Source Temporal Pulse Rate 79 Respiratory Rate 16 Blood Pressure 163/106 H Blood Pressure Mean 125 Pulse Ox 94 Oxygen Delivery Method Room Air MDM MDM MDM Narrative Medical decision making narrative: Patient CBC is normal including normal hemoglobin hematocrit and platelets. Electrolytes show minimal bump in BUN and creatinine but she was given IV fluids. Glucose is just up slightly 142. Liver function test are normal. My independent interpretation of her 5 view abdominal film shows changes at the right base of the lungs but when I compare this to films from December 20, 2022 it looks similar. Final read eating is standing she may need to see in this area. But I went back and talk to her. She has absolutely no abdominal pain and no tenderness. It is a totally benign abdomen. I do not think this requires CT scanning for that finding acutely. We did do an a soapsuds enema. She had a small bowel movement and then a bit later had a medium sized bowel movement. She evidently is called her brother to go home. She did have a little bit of red blood on this but she is not actively bleeding. She does have a little bit of a fissure. I think since she is on no blood thinners, not lightheaded, not anemic, not thrombocytopenic she does not need to come in the hospital. She states she has had rectal bleeding with straining in the past. We did discuss that if this increases or she gets at all lightheaded or is having clots she should return. It is possible this could happen but hopefully this will resolve. She has MiraLAX at home. I recommend she take this twice a day and then as long as she is moving her bowels well turn her down to once a day and then every other day to slowly wean off. Lab Data Attestation: I reviewed the patient's lab results. Labs: Laboratory Results - last 24 hr 02/23/23 16:30 WBC 10.2 RBC 4.73 Hgb 13.8 Hct 43.3 MCV 91.5 MCH 29.2 MCHC 31.9 L RDW Std Deviation 49.4 H RDW Coeff of Fabricio 14.8 H Plt Count 203 MPV 12.3 H Immature Gran % (Auto) 0.600 Neut % (Auto) 70.2 H Lymph % (Auto) 20.3 [place] % (Auto) 8.1 Eos % (Auto) 0.3 Baso % (Auto) 0.5 Absolute Neuts (auto) 7.2 Absolute Lymphs (auto) 2.08 Nucleated RBC % 0 Sodium 136 Potassium 4.1 Chloride 100 Carbon Dioxide 30.0 Anion Gap 6 BUN 27 H Creatinine 1.29 H Estim Creat Clear Calc 34.83 Est GFR (MDRD) Af Amer 50 L Est GFR (MDRD) Non-Af 42 L BUN/Creatinine Ratio 20.9 H Glucose 142 H Calcium 9.3 Total Bilirubin 0.50 AST 21 ALT 22 Alkaline Phosphatase 73 Total Protein 7.2 Albumin 3.7 Globulin 3.5 Albumin/Globulin Ratio 1.1 Radiography Diagnostic Testing: Clinical Impression(s) from Imaging Studies Acute Abdomen Series 02/23/23 16:47 IMPRESSION: Bilateral basilar atelectasis otherwise no acute cardiopulmonary disease. Air-fluid level at the right hemidiaphragm and within the midepigastric region with unusual morphology at the level of the right upper abdomen, recommend follow-up with CT of the abdomen and pelvis to exclude air collection or atypical pneumoperitoneum . Electronically Signed: Pita Hale MD at 17:16 EST Reading Location ID and State: [address] [place] [address] , Service support , Discharge Plan Triage Chief Complaint: Constipation ED Provider: Aj Pastrana Dx/Rx/DC Orders Clinical Impression: Dehydration, mild, Blood in stool, Constipation Instructions: ED Constipation (Adult) Prescriptions: No Action levothyroxine 125 mcg tablet 125 mcg PO DAILY omeprazole 40 mg capsule,delayed release(DR/EC) 40 mg PO DAILY Patient Comments: take 1 capsule by mouth once daily nystatin 100,000 unit/mL suspension 5 ml PO Q6H Patient Comments: take 5 milliliters by mouth four times a day losartan 25 mg tablet 25 mg PO DAILY Patient Comments: take 1 tablet by mouth every morning Acidophilus Capsule 100 mg PO DAILY Patient Comments: take 1 capsule by mouth every morning melatonin 5 mg tablet 5 mg PO QHS Patient Comments: take 1 tablet by mouth at bedtime albuterol sulfate 2.5 MG/3 ML solution for nebulization 2.5 mg inhalation Q6H PRN PRN (Reason: Sob &/Or Wheezing) multivitamin Tablet 1 tab PO DAILY ondansetron 4 mg tablet,disintegrating 4 mg PO Q8H PRN (Reason: nausea and vomiting) Qty: 10 0RF furosemide 40 mg tablet 40 mg PO DAILY Primary Care Provider: Pete Butler Referrals: Pete Butler DO [Primary Care Provider] - 3-5 Days Disposition Disposition: Home, Self Care Capacity 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 Next of kin: [place] law dictates a PRIORITY LIST for identifying legal decision-maker/legal next of kin in the following order (LNOK): 1st: The patient?s legal guardian, if any 2nd: The patient's spouse (if status is questionable, consult Risk Management) 3rd: The patient?s adult child(herberth) (majority, if multiple children) 4th: The patient?s parents 5th: The patient?s adult siblings (majority, if multiple children siblings)
[2023-02-23] MEDS: 0.9% Normal Saline (1000mL) 500 ML 1000 ML IV (16:35)
[2023-02-23 16:47] LABS: Absolute Lymphocyte Count 2.08 X10^3/uL (0.83-4.51); Absolute Neutrophil Count 7.2 X10^3/uL (2.0-7.7); Basophil# 0.05 X10^3/uL; Basophil% 0.5 % (0-1); Eosinophil# 0.03 X10^3/uL; Eosinophils% 0.3 % (0-5); Hematocrit 43.3 % (37-47); Hemoglobin 13.8 g/dL (12.0-15.0); Lymphocyte # 2.08 X10^3/ul (0.83-4.51); Lymphocyte % 20.3 % (19-41); Mean Corp Hgb Conc 31.9 g/dL (32-36); Mean Corpuscular Hgb 29.2 pg (27.0-32.0); Mean Corpuscular Volume 91.5 fL (81-99); Mean Platelet Vol. 12.3 fl (6.2-12.0); Monocyte# 0.83 X10^3/uL; Monocyte% 8.1 % (0-10); NRBC Flagged by Analyzer 0 % (0-5); Neutrophil # 7.19 X10^3/uL (2.7-7.7); Neutrophil % 70.2 % (47-70); Platelet Count 203 K/mm3 (150-450); RBC Distribution Width CV 14.8 % (11.6-14.6); RBC Distribution Width SD 49.4 fl (35.1-43.9); Red Blood Count 4.73 M/mm3 (4.2-5.4); White Blood Count 10.2 K/mm3 (4.4-11.0)
--- NOTE | 2023-02-23 16:47 | RAD_ITS ---
STUDY: X-RAY - ACUTE ABDOMINAL SERIES REASON FOR EXAM: Female, 87 years old. Pain TECHNIQUE: Single view of the chest. Supine, and erect view(s) of the abdomen were obtained. COMPARISON: None. FINDINGS: The lungs are underexpanded with bilateral basilar atelectasis, otherwise clear. Normal size heart. Midline sternotomy wires noted with evidence of valve replacement surgery. Normal mediastinum and sebastián. Normal visualized pulmonary arteries. There is atherosclerotic calcification of the aortic arch with tortuosity. There is air-fluid level within the midepigastric region and below the right hemidiaphragm. There is moderate fecal debris within the colon. No significant bowel dilatation to suggest obstruction seen. There are surgical clips in the mid epigastric region and left upper abdomen. The soft tissue structures of the abdomen and pelvis are unremarkable. Normal visualized osseous structures. RAD/Acute Abdomen Inc Chest IMPRESSION: Bilateral basilar atelectasis otherwise no acute cardiopulmonary disease. Air-fluid level at the right hemidiaphragm and within the midepigastric region with unusual morphology at the level of the right upper abdomen, recommend follow-up with CT of the abdomen and pelvis to exclude air collection or atypical pneumoperitoneum . Electronically Signed: Pita Hale MD at 17:16 EST ,
[2023-02-23 17:06] LABS: ALB/GLOB Ratio 1.1 RATIO (0.9-2.4); AST(SGOT) 21 U/L (15-37); Alanine Aminotransfer ALT/SGPT 22 U/L (13-56); Albumin, Serum 3.7 g/dL (3.2-5.0); Alkaline Phosphatase 73 U/L (45-117); Anion Gap 6 (5-15); BUN 27 mg/dL (7-18); BUN/Creat Ratio 20.9 RATIO (10-20); Calcium,Total 9.3 mg/dL (8.5-10.1); Chloride 100 mmol/L (98-107); Creatinine, Serum 1.29 mg/dL (0.55-1.02); EST Glomerular Filtration Rate 42 mL/min (>60); Est Glom Filt Rate - Afr Amer 50 mL/min (>60); Estimated Creatinine Clearance 34.83 ml/min; Globulin 3.5 g/dL (2.2-4.2); Glucose 142 mg/dL (74-106); Potassium 4.1 mmol/L (3.5-5.1); Protein, Total 7.2 g/dL (6.4-8.2); Sodium Level 136 mmol/L (136-145)
[2023-02-23 18:16] VITALS: RESP 16; O2SAT 95
[2023-02-23 18:55] VITALS: BP 153/91; PULSE 61; RESP 16; O2SAT 99
== END 2023-02-23 19:12 | disposition home or self-care (01) ==
PROVIDERS: Emergency Provider Emergency Medicine; PCP Preventive Medicine Occupational Medicine; Visit Provider Emergency Medicine
DX: E86.0 Dehydration (principal); K92.1 Melena; K59.00 Constipation, unspecified
CPT/HCPCS: 74022; 80053; 85025; 99285; J7040; A4216

== ENCOUNTER 2023-05-18 20:59 | Emergency (ER) | payer MEDICARE, OTHER, SELFPAY ==
[2023-05-18 21:00] VITALS: BP 158/117; PULSE 81; RESP 16; TEMP 36.4; O2SAT 96
[2023-05-18 23:00] VITALS: BP 155/100; PULSE 73; RESP 17; O2SAT 97
--- NOTE | 2023-05-18 23:47 | EKG12_ITS ---
Test Reason : DYSRHYTHMIA Blood Pressure : / mmHG Vent. Rate : 079 BPM Atrial Rate : 079 BPM P-R Int : 130 ms QRS Dur : 122 ms QT Int : 416 ms P-R-T Axes : 069 002 146 degrees QTc Int : 477 ms Normal sinus rhythm Possible Left atrial enlargement Left bundle branch block Abnormal ECG Confirmed by Chandler Beard ([id number]), order editor YOANNA WOODS ([id number]) on 05/19/2023 10:39:08 AM Referred By: Confirmed By:Chandler Beard
--- NOTE | 2023-05-18 23:48 | EX.ED.DYSGE1 ---
HPI History of Present Illness Chief Complaint: General Illness Informant: patient and EMS Narrative Narrative: 87-year-old female presenting to the emergency room with hypertension. Patient states her blood pressure has been high all day. She cannot remember what it was at home. She states she still weak and a total of 3 of her blood pressure pills the 25 mg once throughout the day. Best I can tell from chart review is that this is losartan. She called the ambulance and she tells me that they told her her blood pressure top number was 288. EMS notes it was 200/88. patient states that she recently broke her little toe was seen in another emergency department where they taped it and she followed up with a doctor that she does not recall. She states that doctor saw her and put her on antibiotic because the top of her foot was red. She does not know what antibiotic she was on. Patient states that she believes that they did not tape her toe correctly because they wrapped the tape around it twice instead of once like the emergency department. She also states the emergency department did not wrap it correctly because they did not put enough cotton in between her 2 toes. Patient states that she has been shaky all day. She states that she does not understand why she is so shaky but wonders if it could be anxiety. She denies any fevers. Patient denies any chest pain headache shortness of breath. Patient states that the antibiotic probably really messed me up. When asked what she means by this she states she does not know. Patient states she is taking the antibiotic every 6 hours. EMS notes that when they got there she was complaining that her head was feeling funny. She did not have any neurologic deficits. She denies any chest pain or shortness of breath. [facility] Medical History Acute respiratory failure with hypoxemia Anemia Arthritis Blackout Body mass index (BMI) 35 or more Cancer Cardiology follow-up encounter COPD (chronic obstructive pulmonary disease) Demand ischemia Essential hypertension Femoral hernia of right side Gastric reflux GERD (gastroesophageal reflux disease) Gout Hiatal hernia with gastroesophageal reflux History of eye disorder History of GI bleed Hoarseness Hypothyroidism Non-ischemic cardiomyopathy Non-smoker Nonrheumatic aortic (valve) stenosis with insufficiency Nonrheumatic mitral (valve) insufficiency Obesity Psoriasis Pulmonary edema Restless legs Seroma after procedure Severe sepsis Shortness of breath on exertion Skin cancer Thyroid disease Vertigo Wears dentures Wears glasses Home Medications albuterol sulfate 2.5 mg/3 mL (0.083 %) solution for nebulization 2.5 mg inhalation Q6H PRN PRN Sob &/Or Wheezing 02/07/18 [History Last Taken 09/09/21] levothyroxine 125 mcg tablet 125 mcg PO DAILY thyroid 05/05/18 [History Last Taken 09/11/21] omeprazole 40 mg capsule,delayed release 40 mg PO DAILY 05/01/21 [History Last Taken 09/10/21] multivitamin 1 tab PO DAILY supplement 09/11/21 [History Last Taken 09/10/21] ondansetron 4 mg disintegrating tablet 4 mg PO Q8H PRN nausea and vomiting #10 tabs 09/11/21 [Rx Last Taken Unknown] Lactobacillus acidophilus (Acidophilus capsule) 100 mg PO DAILY 01/28/23 [History Last Taken Unknown] losartan 25 mg tablet 25 mg PO DAILY 01/28/23 [History Last Taken Unknown] melatonin 5 mg tablet 5 mg PO QHS 01/28/23 [History Last Taken Unknown] nystatin 100,000 unit/mL oral suspension 5 ml PO Q6H 01/28/23 [History Last Taken Unknown] furosemide 40 mg tablet 40 mg PO DAILY dose increased by Dr. Rupert Garcia 02/11/23 [History Last Taken Unknown] Allergy/AdvReac Type Severity Reaction Status Date / Time No Known Allergies Allergy Verified 05/18/23 21:00 Family History Mother Hypertension Diabetes Father Hypertension Heart disease CVA (cerebral vascular accident) Cancer Brother Cancer Diabetes Heart disease CVA (cerebral vascular accident) Brother CVA (cerebral vascular accident) Surgical History History of aortic valve replacement with bioprosthetic valve (06/15/17) History of bladder suspension procedure History of esophagogastroduodenoscopy (EGD) History of hysterectomy History of incisional hernia repair History of left heart catheterization (2011) History of Ronen fundoplication (10/21/16) History of partial colectomy History of repair of hiatal hernia (10/21/16) Hx of colonoscopy Social History household members: none housing: apartment Smoking Status: Never smoker second hand exposure: No alcohol intake: never substance use type: does not use caffeine: Yes Type: coffee Number of servings: 1 what type of physical activity do you participate in: none frequency: does not exercise ROS ROS ED ROS Narrative Patient reports shaking all day Constitutional Constitutional ED: Denies chills, fever(s) or weight loss Eyes Eyes: Denies change in vision or diplopia ENT ENT ED: Denies ear pain, rhinorrhea or sore throat Cardiovascular Cardiovascular: Denies chest pain, orthopnea, palpitations or racing heartbeat Respiratory/Chest Respiratory/Chest: Denies cough, dyspnea or orthopnea Gastrointestinal Gastrointestinal: Denies abdominal pain, diarrhea, nausea or vomiting Genitourinary Genitourinary ED: Denies dysuria, hematuria or urinary frequency Musculoskeletal Musculoskeletal: Reports other Details: Right little toe pain ; Denies arthralgias or myalgias Integumentary Reports rash; Denies abscess Neurologic Neurologic: Denies headache(s) or weakness Psychiatric Psychiatric: Denies anxiety, depression, suicidal ideation or suicidal thoughts Endocrine Endocrinology: Denies polydipsia, polyphagia or polyuria Allergic/Immunologic Allergic/Immunologic ED: Denies mouth swelling, tongue swelling or urticaria EXAM Physical Exam Narrative Exam Narrative: Patient is in no acute distress laying on the bed. She appears very anxious however. When the blood pressure goes off she begins to raise her arms and shake and screams how much it is hurting her. Const Vital Signs: 05/18/23 21:00 05/18/23 23:00 05/18/23 23:16 Temperature 97.5 F L Temperature Source Temporal Pulse Rate 81 73 Respiratory Rate 16 17 Respiratory Effort Normal Respiratory Pattern Normal Blood Pressure 158/117 H 155/100 H Blood Pressure Mean 130 118 Pulse Ox 96 97 Oxygen Delivery Method Room Air Oxygen Flow Rate (L/min) 05/19/23 01:00 Temperature Temperature Source Pulse Rate 75 Respiratory Rate 21 H Respiratory Effort Respiratory Pattern Blood Pressure 138/87 H Blood Pressure Mean 104 Pulse Ox 97 Oxygen Delivery Method Nasal Cannula Oxygen Flow Rate (L/min) 2 Positive well nourished and well developed General Appearance ED: well developed HEENT Reports normocephalic, head/scalp atraumatic and moist mucous membranes Eyes PERRL and EOMs intact bilaterally Neck no lymphadenopathy, supple and no JVD Resp normal respiratory effort and clear to auscultation bilaterally Cardio regular rate, regular rhythm and no murmurs GI normal to inspection, nondistended, normoactive bowel sounds and non-tender Palpation: soft Back/Spine no CVA tenderness and normal ROM Extremity Extremity Narrative: Right foot demonstrates mild swelling and erythema extending up onto the ankle. Right little toe is tender to palpation. No lymphangitic streaking. Neuro oriented x3 and CN's II-XII intact bilaterally Sensorium / Orientation: alert Motor Exam: strength 5/5 throughout Psych Mood & Affect: anxious; Negative for tearful Skin no wounds Skin Narrative: I do not appreciate any breaks in the skin especially around the area of the fracture either in between the toes or on the plantar surface. MDM MDM MDM Narrative Medical decision making narrative: White count 10.3 with 75.2 neutrophils. INR 1 BMP with a creatinine 1.06 glucose of 156 troponin is 19 liver enzymes within normal limits. My independent interpretation of the chest x-ray is no acute process. EKG is sinus with an apparent left bundle branch block. Left bundle branch block does appear new however looking at her last EKG it looks like there is more of a nonspecific interventricular block and so I do not think that this is representing ACS. She is not having cardiac symptoms. Her blood pressure has been stable. My independent interpretation of the foot films Is soft tissue swelling. There is a noted middle phalanx fracture of the fifth toe. Patient does appear to have a cellulitis of the foot. She is currently on antibiotics. Her white count is not significantly elevated. She is not febrile. She does not appear toxic. She states she is not supposed to see her doctor again for 5 months. I asked that she schedule a follow-up appointment towards the end of her antibiotic course to ensure that this is getting better. History & Record Review Discussion w/independent historian: Patient Lab Data Attestation: I reviewed the patient's lab results. Labs: Laboratory Results - last 24 hr 05/19/23 00:28 WBC 10.3 RBC 4.58 Hgb 13.3 Hct 41.8 MCV 91.3 MCH 29.0 MCHC 31.8 L RDW Std Deviation 46.0 H RDW Coeff of Fabricio 13.8 Plt Count 201 MPV 11.6 Immature Gran % (Auto) 0.400 Neut % (Auto) 75.2 H Lymph % (Auto) 14.9 L Lanier % (Auto) 8.1 Eos % (Auto) 0.8 Baso % (Auto) 0.6 Absolute Neuts (auto) 7.8 H Absolute Lymphs (auto) 1.54 Nucleated RBC % 0 PT 13.4 INR 1.0 APTT 32.0 Sodium 138 Potassium 4.4 Chloride 102 Carbon Dioxide 29.0 Anion Gap 7 BUN 18 Creatinine 1.06 H Est GFR (MDRD) Af Amer 63 Est GFR (MDRD) Non-Af 52 L BUN/Creatinine Ratio 17.0 Glucose 156 H Calcium 8.9 Total Bilirubin 0.30 AST 22 ALT 18 Alkaline Phosphatase 75 Troponin I High Sens 19 Total Protein 7.1 Albumin 3.5 Globulin 3.6 Albumin/Globulin Ratio 1.0 Radiography Diagnostic Testing: Clinical Impression(s) from Imaging Studies Chest X-Ray 05/19/23 00:01 IMPRESSION: Chronic bibasilar interstitial change with no acute cardiopulmonary disease Electronically Signed: Jayro Rodriguez MD at 1:15 EDT , Foot X-Ray 05/19/23 00:01 IMPRESSION: 1. Linear metallic foreign body within the plantar soft tissues of the great toe 2. Extensive soft tissue swelling involving the plantar and dorsal aspects of the forefoot. 3. Multifocal osteoarthritic change Electronically Signed: Jayro Rodriguez MD at 1:27 EDT , EKG Initial EKG: Attestation: I personally reviewed and interpreted this EKG as follows: Comments: Sinus rhythm with a ventricular rate of 79 bpm. Noted left bundle branch block. Discharge Plan Triage Chief Complaint: General Illness ED Provider: Pete Carlson Dx/Rx/DC Orders Clinical Impression: Anxiety, Hypertension, Cellulitis of foot Instructions: Hypertension Dc, ED Cellulitis Prescriptions: No Action levothyroxine 125 mcg tablet 125 mcg PO DAILY omeprazole 40 mg capsule,delayed release(DR/EC) 40 mg PO DAILY Patient Comments: take 1 capsule by mouth once daily nystatin 100,000 unit/mL suspension 5 ml PO Q6H Patient Comments: take 5 milliliters by mouth four times a day losartan 25 mg tablet 25 mg PO DAILY Patient Comments: take 1 tablet by mouth every morning Acidophilus Capsule 100 mg PO DAILY Patient Comments: take 1 capsule by mouth every morning melatonin 5 mg tablet 5 mg PO QHS Patient Comments: take 1 tablet by mouth at bedtime albuterol sulfate 2.5 MG/3 ML solution for nebulization 2.5 mg inhalation Q6H PRN PRN (Reason: Sob &/Or Wheezing) multivitamin Tablet 1 tab PO DAILY ondansetron 4 mg tablet,disintegrating 4 mg PO Q8H PRN (Reason: nausea and vomiting) Qty: 10 0RF furosemide 40 mg tablet 40 mg PO DAILY Primary Care Provider: Pete Butler Referrals: Pete Butler DO [Primary Care Provider] - 1 Week Disposition Disposition: Home, Self Care
--- NOTE | 2023-05-19 00:01 | RAD_ITS ---
EXAM: XR Chest 1 View INDICATION: Female, 87 years old. Hypertension TECHNIQUE: Single AP view COMPARISON: 02/23/2023 FINDINGS: DEVICES: None LUNGS: Coarsened prominence of interstitial markings throughout bilateral lung bases, unchanged from prior imaging. No new confluent airspace opacity.. No concerning pulmonary nodule. No pleural effusion or pneumothorax. MEDIASTINUM: Borderline cardiac mainly, unchanged. Mediastinal sludge within normal lives. Median sternotomy wires and coronary artery bypass graft clips and prosthetic heart valve in place. No central pulmonary vascular congestion. Mild atherosclerotic calcification of the aortic arch. . SKELETAL STRUCTURES: No acute skeletal abnormality. UPPER ABDOMEN: Unremarkable RAD/Chest 1 View (Portable) IMPRESSION: Chronic bibasilar interstitial change with no acute cardiopulmonary disease Electronically Signed: Jayro Rodriguez MD at 1:15 EDT ,
--- NOTE | 2023-05-19 00:01 | RAD_ITS ---
EXAM: XR Foot Min 3 Views INDICATION: Female, 87 years old. Right foot pain, erythema and swelling TECHNIQUE: AP, lateral, and oblique views COMPARISON: None FINDINGS: BONES: No acute fracture. No lytic or blastic lesion. JOINTS: Deformities noted involving the second through fifth digits end of the tibiotalar, intertarsal and tarsometatarsal joints.. There is mild degenerative change of the first metatarsophalangeal joint. No periarticular inflammatory change. SOFT TISSUES: There is soft tissue swelling of the dorsum and plantar aspects of the forefoot. There is a 1.5 cm linear metallic density within the plantar soft tissues of the great toe underlying the proximal phalanx.. RAD/Foot min 3 Views IMPRESSION: 1. Linear metallic foreign body within the plantar soft tissues of the great toe 2. Extensive soft tissue swelling involving the plantar and dorsal aspects of the forefoot. 3. Multifocal osteoarthritic change Electronically Signed: Jayro Rodriguez MD at 1:27 EDT ,
[2023-05-19 00:18] VITALS: O2SAT 94
[2023-05-19] MEDS: LORazepam 0.5 MG Tablet PO (00:25)
[2023-05-19 00:36] LABS: Absolute Lymphocyte Count 1.54 X10^3/uL (0.83-4.51); Absolute Neutrophil Count 7.8 X10^3/uL (2.0-7.7); Basophil# 0.06 X10^3/uL; Basophil% 0.6 % (0-1); Eosinophil# 0.08 X10^3/uL; Eosinophils% 0.8 % (0-5); Hematocrit 41.8 % (37-47); Hemoglobin 13.3 g/dL (12.0-15.0); Lymphocyte # 1.54 X10^3/ul (0.83-4.51); Lymphocyte % 14.9 % (19-41); Mean Corp Hgb Conc 31.8 g/dL (32-36); Mean Corpuscular Volume 91.3 fL (81-99); Mean Platelet Vol. 11.6 fl (6.2-12.0); Monocyte# 0.83 X10^3/uL; Monocyte% 8.1 % (0-10); NRBC Flagged by Analyzer 0 % (0-5); Neutrophil # 7.76 X10^3/uL (2.7-7.7); Neutrophil % 75.2 % (47-70); Platelet Count 201 K/mm3 (150-450); RBC Distribution Width CV 13.8 % (11.6-14.6); Red Blood Count 4.58 M/mm3 (4.2-5.4); White Blood Count 10.3 K/mm3 (4.4-11.0)
[2023-05-19 00:46] LABS: Prothrombin Time (Protime)PT. 13.4 SECONDS (11.7-14.9)
[2023-05-19 00:58] LABS: AST(SGOT) 22 U/L (15-37); Alanine Aminotransfer ALT/SGPT 18 U/L (13-56); Albumin, Serum 3.5 g/dL (3.2-5.0); Alkaline Phosphatase 75 U/L (45-117); Anion Gap 7 (5-15); BUN 18 mg/dL (7-18); Calcium,Total 8.9 mg/dL (8.5-10.1); Chloride 102 mmol/L (98-107); Creatinine, Serum 1.06 mg/dL (0.55-1.02); EST Glomerular Filtration Rate 52 mL/min (>60); Est Glom Filt Rate - Afr Amer 63 mL/min (>60); Globulin 3.6 g/dL (2.2-4.2); Glucose 156 mg/dL (74-106); Potassium 4.4 mmol/L (3.5-5.1); Protein, Total 7.1 g/dL (6.4-8.2); Sodium Level 138 mmol/L (136-145); Troponin-I HS 19 pg/mL (3.0-54.0)
[2023-05-19 01:00] VITALS: BP 138/87; PULSE 75; RESP 21; O2SAT 97
[2023-05-19 03:00] VITALS: BP 156/87; PULSE 79; RESP 18; TEMP 36.6; O2SAT 99
== END 2023-05-19 03:16 | disposition home or self-care (01) ==
PROVIDERS: Emergency Provider Emergency Medicine; PCP Preventive Medicine Occupational Medicine; Visit Provider Emergency Medicine
DX: F41.9 Anxiety disorder, unspecified (principal); J44.9 Chronic obstructive pulmonary disease, unspecified; L03.115 Cellulitis of right lower limb; I10 Essential (primary) hypertension
CPT/HCPCS: 71045; 73630; 80053; 84484; 85025; 85610; 85730; 93005; 99284; A4216

== ENCOUNTER 2023-10-03 21:10 | Emergency (ER) | payer MEDICARE, OTHER, SELFPAY ==
[2023-10-03 21:12] VITALS: BP 184/87; PULSE 74; RESP 25; TEMP 36.5; O2SAT 97; BMI 41.7
--- NOTE | 2023-10-03 21:21 | EKG12_ITS ---
Test Reason : DYSRHYTHMIA Blood Pressure : / mmHG Vent. Rate : 071 BPM Atrial Rate : 071 BPM P-R Int : 142 ms QRS Dur : 122 ms QT Int : 434 ms P-R-T Axes : 064 015 114 degrees QTc Int : 471 ms Normal sinus rhythm Left atrial enlargement Left bundle branch block Abnormal ECG Confirmed by Chandler Beard ([id number]), video effects editor HOLLIE MORENO ([id number]) on 10/04/2023 7:39:22 AM Referred By: Confirmed By:Chandler Beard
--- NOTE | 2023-10-03 21:24 | RAD_ITS ---
STUDY: XR Chest 1 View 10/03/2023 9:21 PM REASON FOR EXAM: Female, 88 years old. Stroke COMPARISON: 05.19.23 TECHNIQUE: XR Chest 1 View FINDINGS: There is no demonstrated pleural abnormality. Lower lobe atelectasis. There are multiple median sternotomy wires. Prosthetic heart valve. Enlarged heart size. Normal mediastinum. Normal sebastián. Prominent appearing increased interstitial lung markings. Normal visualized pulmonary arteries. There is atherosclerotic calcification of the aortic arch with tortuosity. There are diffuse degenerative changes of the visualized thoracic spine. There is degenerative osteoarthritis of the bilateral shoulders. There are no acute findings of the upper abdomen. RAD/Chest 1 View (Portable) IMPRESSION: There are no acute findings. Electronically Signed: Allan Flores MD at 21:34 EDT ,
--- NOTE | 2023-10-03 21:59 | CT_ITS ---
EXAMINATION : Head CT w/out contrast HISTORY : seizure COMPARISON : 12/20/2022. TECHNIQUE : Multiple contiguous axial images were obtained from the skull base to the vertex without intravenous contrast. A radiation dose optimization technique was used for this scan. FINDINGS : There is no evidence for acute intracranial hemorrhage, mass effect, or midline shift. There is no extra-axial fluid collection. There are periventricular white matter changes consistent with chronic microvascular ischemic disease. There is sulcal widening and ventricular enlargement consistent with cerebral atrophy. There is normal yañez-white differentiation, without CT evidence of acute ischemia or infarct. The skull base and calvarium are unremarkable. The orbits are unremarkable. The paranasal sinuses are clear. The mastoid air cells are well-aerated. The soft tissues are unremarkable. CT/Brain/Head without Contrast IMPRESSION: No acute intracranial abnormality. Chronic involutional and ischemic changes of the brain. Electronically Signed: Aquilino Roberson MD at 22:35 EDT ,
[2023-10-03 22:07] LABS: Absolute Lymphocyte Count 1.67 X10^3/uL (0.83-4.51); Absolute Neutrophil Count 5.7 X10^3/uL (2.0-7.7); Basophil# 0.05 X10^3/uL; Basophil% 0.6 % (0-1); Eosinophil# 0.14 X10^3/uL; Eosinophils% 1.7 % (0-5); Hematocrit 44.5 % (37-47); Hemoglobin 14.2 g/dL (12.0-15.0); Lymphocyte # 1.67 X10^3/ul (0.83-4.51); Lymphocyte % 19.9 % (19-41); Mean Corp Hgb Conc 31.9 g/dL (32-36); Mean Corpuscular Hgb 29.3 pg (27.0-32.0); Mean Corpuscular Volume 91.8 fL (81-99); Monocyte# 0.76 X10^3/uL; NRBC Flagged by Analyzer 0 % (0-5); Neutrophil # 5.74 X10^3/uL (2.7-7.7); Neutrophil % 68.3 % (47-70); Platelet Count 164 K/mm3 (150-450); RBC Distribution Width CV 14.5 % (11.6-14.6); RBC Distribution Width SD 48.9 fl (35.1-43.9); Red Blood Count 4.85 M/mm3 (4.2-5.4); White Blood Count 8.4 K/mm3 (4.4-11.0)
[2023-10-03 22:35] LABS: Anion Gap 6 (5-15); BUN 27 mg/dL (7-18); BUN/Creat Ratio 20.3 RATIO (10-20); Calcium,Total 9.1 mg/dL (8.5-10.1); Chloride 102 mmol/L (98-107); Creatinine, Serum 1.33 mg/dL (0.55-1.02); EST Glomerular Filtration Rate 40 mL/min (>60); Est Glom Filt Rate - Afr Amer 48 mL/min (>60); Estimated Creatinine Clearance 31.74 ml/min; Glucose 158 mg/dL (74-106); Magnesium 2.2 mg/dL (1.6-2.6); Potassium 4.8 mmol/L (3.5-5.1); Sodium Level 139 mmol/L (136-145)
[2023-10-03 23:06] LABS: Bacteria 0 SEEN /hpf (None Seen); Mucous, Urine 0 SEEN /hpf (<or=2+); Red Blood Cells-Urine 0 SEEN /hpf (0-5)
[2023-10-03 23:11] VITALS: BP 149/56; PULSE 65; RESP 15; O2SAT 95
[2023-10-03 23:18] LABS: Color, Urine Yellow (Yellow); Glucose, Dipstick Normal (Normal); Ketone-Dipstick Negative (Negative); Leukocyte Esterase-Dipstick 100 /ul (Negative); Nitrite-Dipstick Negative (Negative); Occult Blood-Urine Negative /ul (Negative); Protein-Dipstick Negative (Negative); Specific Gravity, Urine 1.005 (1.002-1.030); Urine Bilirubin Dipstick Negative (Negative); Urine Clarity Clear (Clear); Urine Urobilinogen Normal (Normal)
[2023-10-03 23:25] LABS: Squamous Epithelial Cells - UA 0-5 SEEN /hpf (5-10); White Blood Cells 5-10 SEEN /hpf (0-5)
--- NOTE | 2023-10-04 00:13 | EX.ED.DYSGE1 ---
HPI History of Present Illness Chief Complaint: Seizure Informant: patient and family Narrative Narrative: Patient is an 88-year-old female with past medical history of hypertension nonischemic cardiomyopathy nonrheumatic aortic stenosis and hypothyroidism. Reportedly she was at the facility where she lives and she was sitting out talking to her neighbors. Reportedly while she was in the chair talking she had an episode where she became unresponsive and had some twitching of her arms. Patient states that she does not remember the event but when she came to she knew who she was and where she was at. She states that she was sitting in the chair when this happened and when she awoke she was still in the chair. She denies any history of seizure activity but there was concern that this was the cause of her symptoms and therefore she was sent to the hospital for evaluation. Upon arrival to the hospital patient states she just feels bad [facility] Medical History COPD (chronic obstructive pulmonary disease) Non-ischemic cardiomyopathy Nonrheumatic aortic (valve) stenosis with insufficiency Essential hypertension Seroma after procedure History of eye disorder Wears glasses Wears dentures Cancer Thyroid disease Restless legs Blackout History of GI bleed Gastric reflux Non-smoker Hoarseness Shortness of breath on exertion Cardiology follow-up encounter GERD (gastroesophageal reflux disease) Femoral hernia of right side Severe sepsis Acute respiratory failure with hypoxemia Pulmonary edema Obesity Body mass index (BMI) 35 or more Demand ischemia Hypothyroidism Vertigo Psoriasis Gout Skin cancer Arthritis Anemia Nonrheumatic mitral (valve) insufficiency Hiatal hernia with gastroesophageal reflux Home Medications ?Medication ?Instructions ?Recorded ?Last Taken ?Type omeprazole 40 mg capsule,delayed 40 mg PO DAILY 05/01/21 09/10/21 History release multivitamin 1 tab PO DAILY supplement 09/11/21 09/10/21 History ondansetron 4 mg disintegrating 4 mg PO Q8H PRN nausea and 09/11/21 Unknown Rx tablet vomiting #10 tabs Lactobacillus acidophilus 100 mg PO DAILY 01/28/23 Unknown History (Acidophilus capsule) furosemide 40 mg tablet 20 mg PO DAILY dose increased by 06/07/[address] Rupert Garcia amlodipine 2.5 mg tablet 2.5 mg PO DAILY #90 tabs 09/13/23 Unknown Rx levothyroxine 100 mcg tablet 100 mcg PO 10/03/23 Unknown History losartan 50 mg tablet 25 mg PO DAILY 10/03/23 Unknown History Allergy/AdvReac Type Severity Reaction Status Date / Time metoprolol AdvReac Severe Other Verified 10/03/23 21:12 Family History Mother Hypertension Diabetes Father Hypertension Heart disease CVA (cerebral vascular accident) Cancer Brother Cancer Diabetes Heart disease CVA (cerebral vascular accident) Brother CVA (cerebral vascular accident) Surgical History History of aortic valve replacement with bioprosthetic valve (06/15/17) Hx of colonoscopy History of partial colectomy History of esophagogastroduodenoscopy (EGD) History of left heart catheterization (2011) History of bladder suspension procedure History of hysterectomy History of incisional hernia repair History of Ronen fundoplication (10/21/16) History of repair of hiatal hernia (10/21/16) Social History household members: none housing: apartment Smoking Status: Never smoker second hand exposure: No alcohol intake: never substance use type: does not use caffeine: Yes Type: coffee Number of servings: 1 what type of physical activity do you participate in: none frequency: does not exercise ROS ROS ED Constitutional Constitutional ED: Denies chills or fever(s) Eyes Eyes: Denies change in vision ENT ENT ED: Denies rhinorrhea or sore throat Cardiovascular Cardiovascular: Denies chest pain, palpitations or racing heartbeat Respiratory/Chest Respiratory/Chest: Denies cough or dyspnea Gastrointestinal Gastrointestinal: Denies abdominal pain, diarrhea, nausea or vomiting Genitourinary Genitourinary ED: Denies dysuria Musculoskeletal Musculoskeletal: Denies myalgias Integumentary Denies rash Neurologic Neurologic: Reports weakness; Denies headache(s) or paresthesias Hematologic/Lymphatic Hematologic/Lymphatic: Denies easy bleeding or easy bruising EXAM Physical Exam Const Vital Signs: 10/03/23 21:12 10/03/23 21:50 10/03/23 23:11 Temperature 97.7 F L Temperature Source Temporal Pulse Rate 74 65 Respiratory Rate 25 H 15 Blood Pressure 184/87 H 149/56 H Blood Pressure Mean 119 87 Pulse Ox 97 95 Oxygen Delivery Method Room Air Room Air Room Air 10/04/23 00:29 Temperature 98.1 F Temperature Source Pulse Rate 85 Respiratory Rate 16 Blood Pressure 167/89 H Blood Pressure Mean 115 Pulse Ox 99 Oxygen Delivery Method Positive well nourished, well developed and obese General Appearance ED: well developed Nutritional Appearance: obese HEENT Reports dry mucous membranes HEENT Narrative: No tongue or lip swelling no oral lesions no airway edema or compromise No secondary findings in the posterior pharynx to suggest Oral mucosa is dry and tacky No tongue or cheek biting noted Mouth ED: Yes dry mucous membranes Mouth: dry mucous membranes Eyes PERRL and EOMs intact bilaterally General Eye ED: Negative for pale conjunctiva or scleral icterus Neck supple Neck Narrative: No nuchal rigidity or meningeal signs Chest Wall palpation of chest normal Chest Narrative: No bony deformity or crepitance Resp normal respiratory effort and clear to auscultation bilaterally Resp Narrative: Breath sounds are diminished throughout but overall clear to auscultation. No nasal flaring or retractions or accessory muscle use Cardio regular rate and regular rhythm Rate: other Other Details: Heart is regular rate and rhythm with a grade 3 out of 6 holosystolic murmur Radial and carotid pulses are equal and symmetric GI normal to inspection, nondistended, normoactive bowel sounds, non-tender, non-distended and no masses GI Narrative: No voluntary guarding or rigidity or pulsatile mass Auscultation: normoactive bowel sounds Palpation: soft Extremity Extremity Narrative: +1-2 pitting edema to the bilateral lower extremities that is equal and symmetric and chronic per patient Neuro oriented x3, CN's II-XII intact bilaterally and no sensory deficits noted Sensorium / Orientation: alert Motor Exam: strength 5/5 throughout Psych mental status grossly normal Skin Skin Narrative: Chronic stasis changes to bilateral lower legs without secondary findings to suggest infection Skin turgor is increased as well MDM MDM MDM Narrative Medical decision making narrative: Patient arrived to the ER hypertensive but otherwise awake and alert. There was a reported syncopal versus seizure activity. The patient does not have a history of seizure disorder she did not have tongue or cheek biting and she states that she knew who she was and where she was at when she awoke going again seizure activity. A lactic acid was obtained secondary to concern for seizure which was normal as well further going against this event as a epileptic or seizure activity. With concern that this was a syncopal event which could be due to acute blood loss anemia versus acute kidney injury versus electrolyte abnormality or infectious process a basic workup was obtained. H&H was stable creatinine is just slightly elevated consistent with her use of diuretics and her electrolytes do not show any clinically significant change. Lab work also reveals no signs of UTI. Head CT revealed no bleed or mass as the cause of her event. The patient was watched in the ER for multiple hours she did not have any return of seizure or syncope her vitals improved and her mental status remained normal with GCS of 15 and normal neurologic exam/NIH stroke scale score of 0. Therefore this time with negative workup and no recurrent episodes of the event that caused her to come to the hospital I do not feel there is need for further evaluation and she is otherwise safe for discharge History & Record Review Discussion w/independent historian: Patient and Family Lab Data Attestation: I reviewed the patient's lab results. Labs: Laboratory Results - last 24 hr 10/03/23 10/03/23 21:49 22:50 WBC 8.4 RBC 4.85 Hgb 14.2 Hct 44.5 MCV 91.8 MCH 29.3 MCHC 31.9 L RDW Std Deviation 48.9 H RDW Coeff of Fabricio 14.5 Plt Count 164 MPV 12.0 Immature Gran % (Auto) 0.500 Neut % (Auto) 68.3 Lymph % (Auto) 19.9 [place] % (Auto) 9.0 Eos % (Auto) 1.7 Baso % (Auto) 0.6 Absolute Neuts (auto) 5.7 Absolute Lymphs (auto) 1.67 Nucleated RBC % 0 Sodium 139 Potassium 4.8 Chloride 102 Carbon Dioxide 31.0 Anion Gap 6 BUN 27 H Creatinine 1.33 H Estim Creat Clear Calc 31.74 Est GFR (MDRD) Af Amer 48 L Est GFR (MDRD) Non-Af 40 L BUN/Creatinine Ratio 20.3 H Glucose 158 H Lactic Acid 1.0 Calcium 9.1 Magnesium 2.2 TSH 4.330 H Urine Color Yellow Urine Clarity Clear Urine pH 7.0 Ur Specific [place] 1.005 Urine Protein Negative Urine Glucose (UA) Normal Urine Ketones Negative Urine Occult Blood Negative Urine Nitrite Negative Urine Bilirubin Negative Urine Urobilinogen Normal Ur Leukocyte Esterase 100 H Urine RBC 0 SEEN Urine WBC 5-10 SEEN Ur Squamous Epith Cells 0-5 SEEN Urine Bacteria 0 SEEN Urine Mucus 0 SEEN Radiography Diagnostic Testing: Clinical Impression(s) from Imaging Studies Chest X-Ray 10/03/23 21:24 IMPRESSION: There are no acute findings. Electronically Signed: Allan Flores MD at 21:34 EDT , Brain CT 10/03/23 21:59 IMPRESSION: No acute intracranial abnormality. Chronic involutional and ischemic changes of the brain. Electronically Signed: Aquilino Roberson MD at 22:35 EDT , Chest x-ray as interpreted by the emergency medicine physician reveals no acute infiltrate pneumothorax or pleural effusion Discharge Plan Triage Chief Complaint: Seizure ED Provider: Lokesh Dominguez Dx/Rx/DC Orders Clinical Impression: Syncope, Essential hypertension, Nonrheumatic aortic (valve) stenosis with insufficiency, Obesity, Non-ischemic cardiomyopathy Instructions: Causes of Syncope Prescriptions: No Action omeprazole 40 mg capsule,delayed release(DR/EC) 40 mg PO DAILY Patient Comments: take 1 capsule by mouth once daily Acidophilus Capsule 100 mg PO DAILY Patient Comments: take 1 capsule by mouth every morning amlodipine 2.5 mg tablet 2.5 mg PO DAILY Qty: 90 3RF multivitamin Tablet 1 tab PO DAILY ondansetron 4 mg tablet,disintegrating 4 mg PO Q8H PRN (Reason: nausea and vomiting) Qty: 10 0RF losartan 50 mg tablet 25 mg PO DAILY levothyroxine 100 mcg tablet 100 mcg PO furosemide 40 mg tablet 20 mg PO DAILY Primary Care Provider: LUIZ PEREIRA Referrals: LUIZ PEREIRA NP-C [Primary Care Provider] - Activity Restrictions/Additional Instructions: Please continue all of your home medications as directed by your doctor and follow-up with your doctor for repeat evaluation. Return to the ER should you have any further concerns Print Language: Uzbek Disposition Disposition: Home, Self Care Discharge Date/Time: 10/04/23 00:38
[2023-10-04 00:29] VITALS: BP 167/89; PULSE 85; RESP 16; TEMP 36.7; O2SAT 99
== END 2023-10-04 00:38 | disposition home or self-care (01) ==
PROVIDERS: Emergency Provider Emergency Medicine; PCP Nurse Practitioner Family; Visit Provider Emergency Medicine
DX: R55 Syncope and collapse (principal); J44.9 Chronic obstructive pulmonary disease, unspecified; I42.8 Other cardiomyopathies; E66.9 Obesity, unspecified; I08.0 Rheumatic disorders of both mitral and aortic valves; I10 Essential (primary) hypertension; Z79.899 Other long term (current) drug therapy
CPT/HCPCS: 70450; 71045; 80048; 81001; 83605; 83735; 84443; 85025; 87631; 93005; 99283

== ENCOUNTER 2023-10-26 13:00 | Outpatient (RCR) | payer MEDICARE, OTHER, SELFPAY ==
--- NOTE | 2023-08-30 14:53 | HP.PTEVAL_ITS ---
Patient's Visit Information Visit Information Visit Information: GONZALO WELCH is a 87 year old F referred to Physical Therapy by Dr. Shawn Botello DO with a diagnosis of B knee OA. Date of Evaluation: 08/30/23 Physical Therapist: Randolph Majano, DPT, OCS, CSCS Visit Plan Frequency: 1x/Week Duration: 4-6 Weeks Plan: 1x/week(all pt can make it in) for 1. pt to bring compression garments and monitor ability to don and doff and work on I with donning or help froma neighbor if I is not realistic. 2. ensure doing LE ROM exercises at home regualry and progfress to LE strength and generla strength standing as able with pics and list each session. IE HEP: HEP of AP, LAQ, seated march, seated hip abd at least 3x/day, benefits of seated bike ergometer adn need to bring compression garments(HO given. Subjective Subjective: Sees [facility] for bone on bone on knees and gets injections. He is worried about the edema. Has had a number of injections which helps with pain. Last on a couple weeks ago. pain since then 5/10 B knees L >R. Prior was invalid and could not walk or get in bed. Sleep is OK but water pill has her up and down. Not employed at 87. Lives alone in [facility] and has help 2x/week. Basic ADLS are I dresses self with grabbers, showers with walk in shower I, Bathroom self. Spends day watch out window. Hobbies: none, pUzzles. Exercises: none. Sees Heart doctor and does not want more water pills. Has compression garments but cannot get them on due to knee pain. Hard even to put shoes and socks on as neoighbor helps her. Uses wh walker to get around, no falls lately. Pain Knees: Pain Intensity (Out of 10): 0 Pain Intensity Range: 0 Comment: 0 at rest, worse on feet. Objective Objective: Walks with wh walker mod I slowlya dn labored back to PT with mild SOB after 250 feet amb. trasnfers with UE only I, No steps. 17.25 inch R calf adn 18 inch L, knee L 19 and R 18.25inches. GIRTH AROM B knee 0-105 and stiff strength knees 4/5, hips 3/5 in all directions, ankles 3+ R and 4- L, AROM ankles limited DF B to -10 R and -5 on L. Very much edematous soft tissue in LE mid thigh down, Arterial pulse hard to find B in feet and ankles. Sedentary lifestyle contribute to this edema as even the few steps she takes are short and avoid distal muscle contractions. Sensation LE to gross light touch WFL B. Able to heel raise only slightly B. Pitting edema 2 B legs with unhealthy feeling tissue throughout LE. relfexes 1/3 patella and achilles B. Balance/Special Test Scores Lower Extremity Functional Score: 11 Goals Goal 1:: I appropriate HEP for muscle activationa dn circulation in LE and use of compression garments if psosible. Goal Time Frame: 4-6 Weeks Goal 2:: Pt feel pain in LE and movement is 50% easier and less problematic Goal Time Frame: 4-6 Weeks Goal 3:: 25 LEFS Goal Time Frame: 4-6 Weeks Rehabilitation Potential Physical Therapy Diagnosis: lack of muscle movements contributing to edema and pain and low circulation in legs and mobilty deficits. Rehabilitation Potential: Questionable Anticipated Interventions Patient/Client Instruction: Educate patient on: Condition and Plan of Care For the Purpose of:: To decrease pain, To increase ROM, To improve nutrient delivery to tissue, To improve muscle performance and motor function and To increase tolerance to activity/condition/position Therapeutic Exercise to Include: Strength training, Flexibilty training and Active ROM For the Purpose of:: To decrease pain, To increase ROM, To improve nutrient delivery to tissue, To improve muscle performance and motor function and To increase tolerance to activity/condition/position Supportive Equipment: Compression garments Comment: janel, pt already has them For the Purpose of:: To decrease swelling/inflammation and To improve nutrient delivery to tissue Text: Thank you for the opportunity to evaluate your patient. For Medicare and Medicare HMO plans, please review the plan of care and approve it. It will need to be FAXED BACK to us at [phone] for Medicare purposes. For Medicare only, by signing this I certify the plan of care. Please let me know if there are questions or concerns regarding this plan of care. Physician Signature: Date:
--- NOTE | 2023-10-26 13:24 | HP.PTDCSUM ---
Discharge Summary D/C summary: It has been my pleasure to treat GONZALO WELCH referred by Dr. Shawn Botello DO, with the diagnosis of B knee OA for a total of 4 visit(s). Discharge Date: 10/26/23 Please see the following information for a summary of their discharge status. Subjective Subjective: Having toruble breathing and working with doctor on affordable treatments for that. Does not want more therapy after today. breathing is biggest problem.Better than prior to therapy, can now get shoe on R leg which she coul not do. using wh walker all over, sometimes with furniture at home in apartment. No steps. Doing exercises at home but stopped due to breathing. 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 Will see sarai in November. Pain Knees: Pain Intensity (Out of 10): 5 Overall Improvement % Improvement: 30 Objective Objective/Function: Walks with wh walker slow but mod I, hesitant and labored Min A without AD for 4 steps, does not have confidence with wt shifts. sit to stand needing UE. SOB trying to scoot on chair and lift legs onto Nustep. good AROM B knees and ankles but weak 3/5, hips 3 abd and ext and 3 flexion B. Very weak in LE adn swollen. Goals Goal 1:: I appropriate HEP for muscle activationa dn circulation in LE and use of compression garments if psosible. Goal Progress: Goal Met,assistant director of public works 2 help Goal 2:: Pt feel pain in LE and movement is 50% easier and less problematic Goal Progress: Progressing Goal 3:: 25 LEFS Goal Progress: Not Progressing Plan Plan: d/c to HEP per pt desire, needs to get breathing taken care of and will f/u with randallttkena next month for possible reinjection if needed. D/C Information Discharge Comments: d/c to HEP thoruhgout day of back and leg ROM and standing sink ex 2x/day. d/c sentence: If there are questions or concerns regarding this patient's physical therapy, please feel free to call me at [phone]. Thank you for the referral of this patient. Sincerely, Randolph Majano, DPT, OCS, CSCS Balance/Gait/Functional tests Balance/Special Test Scores Lower Extremity Functional Score: 18 Improvement % Improvement: 30
== END 2023-10-26 19:00 | disposition home or self-care (01) ==
LOC: PT 13:00
PROVIDERS: PCP Nurse Practitioner Family; Visit Provider Student in an Organized Health Care Education/Training Program
DX: M17.0 Bilateral primary osteoarthritis of knee (principal)
CPT/HCPCS: 97110; 97113; 97161; 97164

== ENCOUNTER 2024-01-03 10:52 | Emergency (ER) | payer MEDICARE, OTHER, SELFPAY ==
[2024-01-03 10:54] VITALS: BP 159/90; PULSE 73; RESP 18; TEMP 36; O2SAT 94; BMI 40.3
--- NOTE | 2024-01-03 11:14 | CT_ITS ---
HISTORY: abdominal pain/LUNG MASS. TECHNIQUE: Helically acquired images were obtained of the chest, abdomen, and pelvis after the intravenous administration of 100 mL Isovue-370. No oral contrast was administered. 2-D reformatted images provided. A radiation dose optimization technique was used for this scan. 1232 images. COMPARISON: XR same day FINDINGS: ----Chest: LARGE AIRWAYS: Patent. LUNGS: Mild linear opacities in the upper and lower lobes. No suspicious nodule or mass corresponding to the radiographic finding. PLEURA: No pneumothorax or significant pleural effusion. HEART AND PERICARDIUM: Heart within normal limits in size with valve replacement noted. Midline sternotomy. No significant pericardial effusion. VESSELS: Mildly dilated 4.5 cm ascending aorta. No dissection flap. No large central central pulmonary embolism although study not performed with the pulmonary embolism protocol. MEDIASTINUM AND KEANU: No pathologically enlarged lymph nodes. BONES: Degenerative change. ----Abdomen/Pelvis: BOWEL: Mild hiatal hernia with adjacent surgical clips. Bowel including appendix nondilated. Colonic diverticulosis without focal inflammatory change. PERITONEUM: No significant free fluid. LIVER: Tiny cystic lesions, too small to characterize. GALLBLADDER/BILIARY TREE: Gallbladder present. SPLEEN: Homogeneous and nonenlarged. PANCREAS: Atrophic. KIDNEYS: Mild right hydronephrosis and hydroureter. Left renal atrophy. ADRENAL GLANDS: Unremarkable. VESSELS: No abdominal aortic aneurysm. Atherosclerosis of the abdominal aorta and its major branches. PELVIC ORGANS: Absent uterus. Mildly distended bladder. BONES: Degenerative change. CT/CT Chest, Abd, Pel w/Contrast IMPRESSION: Mild atelectasis in the lungs without evidence for suspicious nodule or mass. Mildly dilated ascending aorta. Mild hiatal hernia. Colonic diverticulosis without acute diverticulitis. Mild right hydronephrosis. Mildly distended bladder. Left renal atrophy. Electronically Signed: Kasandra Fofana MD at 13:25 EST ,
--- NOTE | 2024-01-03 11:17 | EX.ED.DYSGE1 ---
HPI <GLADYS Miles - Last Filed: 01/03/24 14:05> History of Present Illness Chief Complaint: Complaint Narrative Narrative: Patient is an 88-year-old female with history of aortic valve replacement, hype obesity, hypertension who lives by herself. Patient states that she had come in by [facility] today because she has had 2 to 3 weeks of generalized malaise, cough and congestion, she is also having difficulty urinating as well as abdominal pain. She denies any fever or chills. Last bowel movement was yesterday and was normal. She is currently on any blood thinners. She denies any chest pain or shortness of breath. Patient states that she is having difficulty living by herself because she is so weak. Here for evaluation. [facility] <LGADYS Miles - Last Filed: 01/03/24 14:05> [facility] Medical History COPD (chronic obstructive pulmonary disease) Non-ischemic cardiomyopathy Nonrheumatic aortic (valve) stenosis with insufficiency Essential hypertension Seroma after procedure History of eye disorder Wears glasses Wears dentures Cancer Thyroid disease Restless legs Blackout History of GI bleed Gastric reflux Non-smoker Hoarseness Shortness of breath on exertion Cardiology follow-up encounter GERD (gastroesophageal reflux disease) Femoral hernia of right side Severe sepsis Acute respiratory failure with hypoxemia Pulmonary edema Obesity Body mass index (BMI) 35 or more Demand ischemia Hypothyroidism Vertigo Psoriasis Gout Skin cancer Arthritis Anemia Nonrheumatic mitral (valve) insufficiency Hiatal hernia with gastroesophageal reflux Home Medications ?Medication ?Instructions ?Recorded ?Last Taken ?Type omeprazole 40 mg capsule,delayed 40 mg PO DAILY 05/01/21 09/10/21 History release multivitamin 1 tab PO DAILY supplement 09/11/21 09/10/21 History ondansetron 4 mg disintegrating 4 mg PO Q8H PRN nausea and 09/11/21 Unknown Rx tablet vomiting #10 tabs Lactobacillus acidophilus 100 mg PO DAILY 01/28/23 Unknown History (Acidophilus capsule) furosemide 40 mg tablet 20 mg PO DAILY dose increased by 06/07/[address] Rupert Garcia amlodipine 2.5 mg tablet 2.5 mg PO DAILY #90 tabs 09/13/23 Unknown Rx levothyroxine 100 mcg tablet 100 mcg PO 10/03/23 Unknown History losartan 50 mg tablet 25 mg PO DAILY 10/03/23 Unknown History Allergy/AdvReac Type Severity Reaction Status Date / Time metoprolol AdvReac Severe Other Verified 01/03/24 10:53 Family History Mother Hypertension Diabetes Father Hypertension Heart disease CVA (cerebral vascular accident) Cancer Brother Cancer Diabetes Heart disease CVA (cerebral vascular accident) Brother CVA (cerebral vascular accident) Surgical History History of aortic valve replacement with bioprosthetic valve (06/15/17) Hx of colonoscopy History of partial colectomy History of esophagogastroduodenoscopy (EGD) History of left heart catheterization (2011) History of bladder suspension procedure History of hysterectomy History of incisional hernia repair History of Ronen fundoplication (10/21/16) History of repair of hiatal hernia (10/21/16) Social History household members: none housing: apartment Smoking Status: Never smoker second hand exposure: No alcohol intake: never substance use type: does not use caffeine: Yes Type: coffee Number of servings: 1 what type of physical activity do you participate in: none frequency: does not exercise ROS <GLADYS Miles - Last Filed: 01/03/24 14:05> ROS ED ROS Narrative Constitutional: Negative for fever, chills, weight loss. Positive for weakness Eyes: Negative for vision loss, vision change, double vision ENT: Negative for any sore throat, ear pain, congestion Cardiovascular: Negative for any chest pain, tightness, palpitations Respiratory: Negative for any cough, sputum production, hemoptysis, dyspnea, dyspnea on exertion, orthopnea Gastrointestinal: Negative for any nausea, vomiting, diarrhea, constipation, blood in stool, blood in vomit. Positive for abdominal pain : Negative for any urinary frequency, blood in urine. Positive for dysuria difficulty urinating Muscle skeletal: Negative for any neck pain, back pain Neurological: Negative for any headache, syncope, dizziness Skin: Negative for any rashes, itching, abrasions, lacerations Psychiatric: Negative for any depression, anxiety, stress, suicidal ideation, homicidal ideation Hematologic: Negative for any excessive bruising, easy bleeding EXAM <GLADYS Miles - Last Filed: 01/03/24 14:05> Physical Exam Narrative Exam Narrative: Vital signs reviewed. HEET: Head normocephalic atraumatic, TMs clear bilaterally. Posterior pharynx is clear, moist mucous membranes. Nares clear bilaterally. Neck: Supple with no lymphadenopathy or tenderness. No signs of meningismus. Cardiac: Regular rate and rhythm no murmurs gallops or rubs, equal peripheral pulses bilaterally. Respiratory: Lungs clear to auscultation bilaterally. No chest tenderness. Abdomen: Soft, nondistended. No abdominal bruit or pulsatile masses. No hepatosplenomegaly. Patient has significant tenderness to the right mid to lower abdomen. Tenderness to the suprapubic area Extremities: No peripheral edema, no signs of gross trauma or deformity. Active full range of motion of all extremities. Neuro: Cranial nerves II through XII intact, no focal neurological deficits. Skin: Clean dry and intact with no rash, purpura, petechiae, vesicles or pustules. Backs/flank: No CVA tenderness, no midline spinal tenderness, no deformity. Psych: Normal mood and affect. No SI, HI or acute psychosis. Const Vital Signs: 01/03/24 10:54 01/03/24 10:56 01/03/24 11:06 Temperature 96.8 F L Temperature Source Oral Pulse Rate 73 Respiratory Rate 18 Respiratory Effort Normal Non-Labored Normal Non-Labored Respiratory Depth Normal Respiratory Pattern Normal Normal Blood Pressure 159/90 H Blood Pressure Mean 113 Pulse Ox 94 Oxygen Delivery Method Room Air 01/03/24 12:13 01/03/24 12:48 01/03/24 13:57 Temperature 97.6 F L 97.6 F L Temperature Source Oral Pulse Rate 67 68 70 Respiratory Rate 18 22 H 18 Respiratory Effort Respiratory Depth Respiratory Pattern Blood Pressure 144/84 H 167/81 H 154/90 H Blood Pressure Mean 104 109 111 Pulse Ox 95 96 94 Oxygen Delivery Method Room Air Room Air Positive obese Nutritional Appearance: obese <Dr. Celso Martinez DO - Last Filed: 01/03/24 15:45> Physical Exam Const Vital Signs: 01/03/24 10:54 01/03/24 10:56 01/03/24 11:06 Temperature 96.8 F L Temperature Source Oral Pulse Rate 73 Respiratory Rate 18 Respiratory Effort Normal Non-Labored Normal Non-Labored Respiratory Depth Normal Respiratory Pattern Normal Normal Blood Pressure 159/90 H Blood Pressure Mean 113 Pulse Ox 94 Oxygen Delivery Method Room Air 01/03/24 12:13 01/03/24 12:48 01/03/24 13:57 Temperature 97.6 F L 97.6 F L Temperature Source Oral Pulse Rate 67 68 70 Respiratory Rate 18 22 H 18 Respiratory Effort Respiratory Depth Respiratory Pattern Blood Pressure 144/84 H 167/81 H 154/90 H Blood Pressure Mean 104 109 111 Pulse Ox 95 96 94 Oxygen Delivery Method Room Air Room Air [facility] <GLADYS Miles - Last Filed: 01/03/24 14:05> [facility] Lab Data Labs: Laboratory Results - last 24 hr 01/03/24 01/03/24 11:20 11:25 WBC 6.4 RBC 4.92 Hgb 14.6 Hct 46.1 MCV 93.7 MCH 29.7 MCHC 31.7 L RDW Std Deviation 51.1 H RDW Coeff of Fabricio 14.7 H Plt Count 147 L MPV 12.0 Immature Gran % (Auto) 0.600 Neut % (Auto) 67.1 Lymph % (Auto) 21.2 Gaines % (Auto) 8.7 Eos % (Auto) 1.6 Baso % (Auto) 0.8 Absolute Neuts (auto) 4.3 Absolute Lymphs (auto) 1.36 Nucleated RBC % 0 Sodium 138 Potassium 4.3 Chloride 105 Carbon Dioxide 29.0 Anion Gap 4 L BUN 15 Creatinine 1.16 H Estim Creat Clear Calc 35.67 Est GFR (MDRD) Af Amer 57 L Est GFR (MDRD) Non-Af 47 L BUN/Creatinine Ratio 12.9 Glucose 134 H Calcium 9.4 Total Bilirubin 0.40 AST 18 ALT 19 Alkaline Phosphatase 73 B-Natriuretic Peptide 398.4 H Total Protein 6.7 Albumin 3.6 Globulin 3.1 Albumin/Globulin Ratio 1.2 Lipase 14 Urine Color Straw Urine Clarity Clear Urine pH 8.0 Ur Specific Margaret 1.010 Urine Protein Negative Urine Glucose (UA) Normal Urine Ketones Negative Urine Occult Blood Negative Urine Nitrite Negative Urine Bilirubin Negative Urine Urobilinogen Normal Ur Leukocyte Esterase Negative Urine RBC 0 SEEN Urine WBC 0 SEEN Ur Squamous Epith Cells 0 SEEN Urine Bacteria 0 SEEN Urine Mucus 0 SEEN Radiography Diagnostic Testing: Clinical Impression(s) from Imaging Studies Chest/Abdomen/Pelvis CT 01/03/24 11:14 IMPRESSION: Mild atelectasis in the lungs without evidence for suspicious nodule or mass. Mildly dilated ascending aorta. Mild hiatal hernia. Colonic diverticulosis without acute diverticulitis. Mild right hydronephrosis. Mildly distended bladder. Left renal atrophy. Electronically Signed: Kasandra Fofana MD at 13:25 EST , Chest X-Ray 01/03/24 11:30 IMPRESSION: Focal opacity in the left midlung, possible pneumonia or mass. Recommend follow-up or CT. Mild bibasilar atelectasis or scarring. Electronically Signed: Kaasndra Fofana MD at 11:46 EST , Treatment and Re-Evaluation :: Differential diagnosis includes however is not limited to: Bowel obstruction, mass, UTI, COVID-19, influenza, RSV, diverticulitis, cystitis Patient appears generally well, vital signs are stable, patient is nontoxic-appearing. Patient is in no obvious respiratory distress, patient is tearful. Patient had significant pain to the right lower quadrant. Patient did have nursing staff straight cath for urine, patient had 300 cc out. The urine is light yellow. Patient will receive a CT scan of the abdomen pelvis IV contrast, chest x-ray. All radiologic examinations were read, reviewed by the emergency department attending. From these reads, a plan of care will be put in place. Laboratory values including CBC CMP lipase, BNP as well as urinalysis. Patient's chest x-ray showed a focal opacity in the left midlung, possible pneumonia or mass. Recommend follow-up CT. Secondary this finding, and her abdominal pain, I did add a CT of the chest abdomen pelvis. Laboratory values showed no leukocytosis, patient's chemistries show a stable creatinine of 1.16, patient's BNP is slightly elevated at 398.4, previous patient was in the 200s. Lipase was negative. CT of the chest abdomen pelvis showed a mild atelectasis in the lung without evidence of suspicious nodule or mass. Mildly dilated ascending aorta. Mild hiatal hernia. Mild right hydronephrosis, mildly distended bladder. Secondary to this finding, patient was offered a Smith catheter. Patient was then able to get up and go to the bathroom where she emptied 600 cc out. Patient at this time feels better. She was ambulatory, and feels stable for discharge. She will follow-up outpatient, I will also give her follow-up with urology. She is instructed to return for any worsening symptoms. All questions answered, stable for discharge. <Dr. Celso Martinez, DO - Last Filed: 01/03/24 15:45> [facility] Lab Data Labs: Laboratory Results - last 24 hr 01/03/24 01/03/24 11:20 11:25 WBC 6.4 RBC 4.92 Hgb 14.6 Hct 46.1 MCV 93.7 MCH 29.7 MCHC 31.7 L RDW Std Deviation 51.1 H RDW Coeff of Fabricio 14.7 H Plt Count 147 L MPV 12.0 Immature Gran % (Auto) 0.600 Neut % (Auto) 67.1 Lymph % (Auto) 21.2 Gaines % (Auto) 8.7 Eos % (Auto) 1.6 Baso % (Auto) 0.8 Absolute Neuts (auto) 4.3 Absolute Lymphs (auto) 1.36 Nucleated RBC % 0 Sodium 138 Potassium 4.3 Chloride 105 Carbon Dioxide 29.0 Anion Gap 4 L BUN 15 Creatinine 1.16 H Estim Creat Clear Calc 35.67 Est GFR (MDRD) Af Amer 57 L Est GFR (MDRD) Non-Af 47 L BUN/Creatinine Ratio 12.9 Glucose 134 H Calcium 9.4 Total Bilirubin 0.40 AST 18 ALT 19 Alkaline Phosphatase 73 B-Natriuretic Peptide 398.4 H Total Protein 6.7 Albumin 3.6 Globulin 3.1 Albumin/Globulin Ratio 1.2 Lipase 14 Urine Color Straw Urine Clarity Clear Urine pH 8.0 Ur Specific Margaret 1.010 Urine Protein Negative Urine Glucose (UA) Normal Urine Ketones Negative Urine Occult Blood Negative Urine Nitrite Negative Urine Bilirubin Negative Urine Urobilinogen Normal Ur Leukocyte Esterase Negative Urine RBC 0 SEEN Urine WBC 0 SEEN Ur Squamous Epith Cells 0 SEEN Urine Bacteria 0 SEEN Urine Mucus 0 SEEN Radiography Diagnostic Testing: Clinical Impression(s) from Imaging Studies Chest/Abdomen/Pelvis CT 01/03/24 11:14 IMPRESSION: Mild atelectasis in the lungs without evidence for suspicious nodule or mass. Mildly dilated ascending aorta. Mild hiatal hernia. Colonic diverticulosis without acute diverticulitis. Mild right hydronephrosis. Mildly distended bladder. Left renal atrophy. Electronically Signed: Kasandra Fofana MD at 13:25 EST , Chest X-Ray 01/03/24 11:30 IMPRESSION: Focal opacity in the left midlung, possible pneumonia or mass. Recommend follow-up or CT. Mild bibasilar atelectasis or scarring. Electronically Signed: Kasandra Fofana MD at 11:46 EST , Treatment and Re-Evaluation :: Differential diagnosis includes however is not limited to: Bowel obstruction, mass, UTI, COVID-19, influenza, RSV, diverticulitis, cystitis Patient appears generally well, vital signs are stable, patient is nontoxic-appearing. Patient is in no obvious respiratory distress, patient is tearful. Patient had significant pain to the right lower quadrant. Patient did have nursing staff straight cath for urine, patient had 300 cc out. The urine is light yellow. Patient will receive a CT scan of the abdomen pelvis IV contrast, chest x-ray. All radiologic examinations were read, reviewed by the emergency department attending. From these reads, a plan of care will be put in place. Laboratory values including CBC CMP lipase, BNP as well as urinalysis. Patient's chest x-ray showed a focal opacity in the left midlung, possible pneumonia or mass. Recommend follow-up CT. Secondary this finding, and her abdominal pain, I did add a CT of the chest abdomen pelvis. Laboratory values showed no leukocytosis, patient's chemistries show a stable creatinine of 1.16, patient's BNP is slightly elevated at 398.4, previous patient was in the 200s. Lipase was negative. CT of the chest abdomen pelvis showed a mild atelectasis in the lung without evidence of suspicious nodule or mass. Mildly dilated ascending aorta. Mild hiatal hernia. Mild right hydronephrosis, mildly distended bladder. Secondary to this finding, patient was offered a Smith catheter. Patient was then able to get up and go to the bathroom where she emptied 600 cc out. Patient at this time feels better. She was ambulatory, and feels stable for discharge. She will follow-up outpatient, I will also give her follow-up with urology. She is instructed to return for any worsening symptoms. All questions answered, stable for discharge. ED attending note: I evaluated the patient in conjunction with the SHANIKA. I agree with his/her statements and above findings. I have personally performed a face to face assessment of the patient and have reviewed the SHANIKA Note. I performed a substantive portion of the visit including all aspects of the following. I personally saw the patient performed chart review, physical exam, reviewed labs, imaging (if obtained), and formulated a treatment and management plan. This note was generated with [employer] dictation software. It may contain incorrect words, spelling, and punctuation that were not noted in review of the chart prior to signing. Discharge Plan Triage Chief Complaint: Complaint Other Complaint: Cold Sx ED Midlevel Provider: Killian Christina ED Provider: Celso Martinez Dx/Rx/DC Orders Clinical Impression: Acute urinary retention, Hydronephrosis Instructions: Healthy Kidneys, Exercise to Help Your Kidneys, ED Urinary Retention, Female Prescriptions: No Action omeprazole 40 mg capsule,delayed release(DR/EC) 40 mg PO DAILY Patient Comments: take 1 capsule by mouth once daily Acidophilus Capsule 100 mg PO DAILY Patient Comments: take 1 capsule by mouth every morning amlodipine 2.5 mg tablet 2.5 mg PO DAILY Qty: 90 3RF multivitamin Tablet 1 tab PO DAILY ondansetron 4 mg tablet,disintegrating 4 mg PO Q8H PRN (Reason: nausea and vomiting) Qty: 10 0RF losartan 50 mg tablet 25 mg PO DAILY levothyroxine 100 mcg tablet 100 mcg PO furosemide 40 mg tablet 20 mg PO DAILY Primary Care Provider: LUIZ PEREIRA Referrals: Bibiana Newell MD [Med Staff - Active Staff] - LUIZ PEREIRA NP-C [Primary Care Provider] - Activity Restrictions/Additional Instructions: You may use Flonase also called fluticasone for your sinuses. Follow-up with urology regarding your retention that happens intermittently. Print Language: Moroccan Disposition Disposition: Home, Self Care Discharge Date/Time: 01/03/24 14:28
[2024-01-03 11:22] LABS: Bacteria 0 SEEN /hpf (None Seen); Mucous, Urine 0 SEEN /hpf (<or=2+); Red Blood Cells-Urine 0 SEEN /hpf (0-5); Squamous Epithelial Cells - UA 0 SEEN /hpf (5-10); White Blood Cells 0 SEEN /hpf (0-5)
[2024-01-03 11:27] LABS: Color, Urine Straw (Yellow); Glucose, Dipstick Normal (Normal); Ketone-Dipstick Negative (Negative); Leukocyte Esterase-Dipstick Negative /ul (Negative); Nitrite-Dipstick Negative (Negative); Occult Blood-Urine Negative /ul (Negative); Protein-Dipstick Negative (Negative); Urine Bilirubin Dipstick Negative (Negative); Urine Clarity Clear (Clear); Urine Urobilinogen Normal (Normal)
--- NOTE | 2024-01-03 11:30 | RAD_ITS ---
HISTORY: cough. TECHNIQUE: XR Chest 1 View. COMPARISON: 10/03/2023. FINDINGS: CARDIOMEDIASTINAL BORDERS: Cardiac silhouette within normal limits in size with valve replacement again seen. Mediastinal contour also unchanged with midline sternotomy. LUNGS: Low lung volumes with linear bibasilar opacities again seen. 2.7 cm focal opacity in the left midlung. PLEURA: No pleural effusion or pneumothorax seen. OSSEOUS STRUCTURES: Degenerative change. RAD/Chest 1 View (Portable) IMPRESSION: Focal opacity in the left midlung, possible pneumonia or mass. Recommend follow-up or CT. Mild bibasilar atelectasis or scarring. Electronically Signed: Kasandra Fofana MD at 11:46 EST ,
[2024-01-03 11:38] LABS: Absolute Lymphocyte Count 1.36 X10^3/uL (0.83-4.51); Absolute Neutrophil Count 4.3 X10^3/uL (2.0-7.7); Basophil# 0.05 X10^3/uL; Basophil% 0.8 % (0-1); Eosinophils% 1.6 % (0-5); Hematocrit 46.1 % (37-47); Hemoglobin 14.6 g/dL (12.0-15.0); Lymphocyte # 1.36 X10^3/ul (0.83-4.51); Lymphocyte % 21.2 % (19-41); Mean Corp Hgb Conc 31.7 g/dL (32-36); Mean Corpuscular Hgb 29.7 pg (27.0-32.0); Mean Corpuscular Volume 93.7 fL (81-99); Monocyte# 0.56 X10^3/uL; Monocyte% 8.7 % (0-10); NRBC Flagged by Analyzer 0 % (0-5); Neutrophil # 4.32 X10^3/uL (2.7-7.7); Neutrophil % 67.1 % (47-70); Platelet Count 147 K/mm3 (150-450); RBC Distribution Width CV 14.7 % (11.6-14.6); RBC Distribution Width SD 51.1 fl (35.1-43.9); Red Blood Count 4.92 M/mm3 (4.2-5.4); White Blood Count 6.4 K/mm3 (4.4-11.0)
[2024-01-03 12:01] LABS: ALB/GLOB Ratio 1.2 RATIO (0.9-2.4); AST(SGOT) 18 U/L (15-37); Alanine Aminotransfer ALT/SGPT 19 U/L (13-56); Albumin, Serum 3.6 g/dL (3.2-5.0); Alkaline Phosphatase 73 U/L (45-117); Anion Gap 4 (5-15); BUN 15 mg/dL (7-18); BUN/Creat Ratio 12.9 RATIO (10-20); Calcium,Total 9.4 mg/dL (8.5-10.1); Chloride 105 mmol/L (98-107); Creatinine, Serum 1.16 mg/dL (0.55-1.02); EST Glomerular Filtration Rate 47 mL/min (>60); Est Glom Filt Rate - Afr Amer 57 mL/min (>60); Estimated Creatinine Clearance 35.67 ml/min; Globulin 3.1 g/dL (2.2-4.2); Glucose 134 mg/dL (74-106); Lipase 14 U/L (13-75); Potassium 4.3 mmol/L (3.5-5.1); Protein, Total 6.7 g/dL (6.4-8.2); Sodium Level 138 mmol/L (136-145)
[2024-01-03 12:07] LABS: BNP,B-Type NATRIURETIC PEPTIDE 398.4 pg/mL (0-100)
[2024-01-03 12:13] VITALS: BP 144/84; PULSE 67; RESP 18; O2SAT 95
[2024-01-03 12:48] VITALS: BP 167/81; PULSE 68; RESP 22; TEMP 36.4; O2SAT 96
[2024-01-03 13:57] VITALS: BP 154/90; PULSE 70; RESP 18; TEMP 36.4; O2SAT 94
--- NOTE | 2024-01-03 13:57 | ED.RN ---
called brother Dorene to inform of pt's d/c. will come to ED to pick her up.
== END 2024-01-03 14:28 | disposition home or self-care (01) ==
PROVIDERS: Nurse Practitioner; Emergency Provider Emergency Medicine; PCP Nurse Practitioner Family; Visit Provider Emergency Medicine
DX: N13.30 Unspecified hydronephrosis (principal); J44.9 Chronic obstructive pulmonary disease, unspecified; I42.8 Other cardiomyopathies; R33.9 Retention of urine, unspecified; J98.11 Atelectasis; I10 Essential (primary) hypertension; I35.2 Nonrheumatic aortic (valve) stenosis with insufficiency; I34.0 Nonrheumatic mitral (valve) insufficiency; I77.819 Aortic ectasia, unspecified site; K44.9 Diaphragmatic hernia without obstruction or gangrene; K21.9 Gastro-esophageal reflux disease without esophagitis; E66.9 Obesity, unspecified; E03.9 Hypothyroidism, unspecified; Z95.2 Presence of prosthetic heart valve; Z90.49 Acquired absence of other specified parts of digestive tract; Z87.19 Personal history of other diseases of the digestive system; Z86.19 Personal history of other infectious and parasitic diseases; Z85.828 Personal history of other malignant neoplasm of skin
CPT/HCPCS: 71045; 71260; 74177; 80053; 81001; 83690; 83880; 85025; 87631; 99285; P9612; Q9967

== ENCOUNTER 2024-08-20 10:47 | Emergency (ER) | payer MEDICARE, OTHER, SELFPAY ==
[2024-08-20] VITALS (7 sets, daily range): BP systolic 141–153; BP diastolic 75–77; PULSE 64–69; RESP 18–20; TEMP 36.6; O2SAT 95–100; BMI 40.4
--- NOTE | 2024-08-20 10:54 | EX.ED.DYSGE1 ---
HPI History of Present Illness Chief Complaint: Abd Pain [facility] Medical History COPD (chronic obstructive pulmonary disease) Non-ischemic cardiomyopathy Nonrheumatic aortic (valve) stenosis with insufficiency Essential hypertension Seroma after procedure History of eye disorder Wears glasses Wears dentures Cancer Thyroid disease Restless legs Blackout History of GI bleed Gastric reflux Non-smoker Hoarseness Shortness of breath on exertion Cardiology follow-up encounter GERD (gastroesophageal reflux disease) Femoral hernia of right side Severe sepsis Acute respiratory failure with hypoxemia Pulmonary edema Obesity Body mass index (BMI) 35 or more Demand ischemia Hypothyroidism Vertigo Psoriasis Gout Skin cancer Arthritis Anemia Nonrheumatic mitral (valve) insufficiency Hiatal hernia with gastroesophageal reflux Home Medications ?Medication ?Instructions ?Recorded ?Last Taken ?Type omeprazole 40 mg capsule,delayed 40 mg PO DAILY 05/01/21 09/10/21 History release multivitamin 1 tab PO DAILY supplement 09/11/21 09/10/21 History fluticasone fur. 100 mcg-umeclid 1 ea inhalation QDAY 07/25/24 Unknown History 62.5 mcg-vilant 25 mcg inhalat.powder (Trelegy Ellipta) furosemide 40 mg tablet 40 mg PO DAILY dose increased by 07/25/[address] Rupert Garcia levothyroxine 112 mcg tablet 112 mcg PO QDAY 07/25/24 Unknown History amlodipine 2.5 mg tablet 2.5 mg PO DAILY #90 tabs 08/07/24 Unknown Rx Allergy/AdvReac Type Severity Reaction Status Date / Time metoprolol AdvReac Severe Other Verified 07/25/24 13:11 Family History Mother Hypertension Diabetes Father Hypertension Heart disease CVA (cerebral vascular accident) Cancer Brother Cancer Diabetes Heart disease CVA (cerebral vascular accident) Brother CVA (cerebral vascular accident) Surgical History History of aortic valve replacement with bioprosthetic valve (06/15/17) Hx of colonoscopy History of partial colectomy History of esophagogastroduodenoscopy (EGD) History of left heart catheterization (2011) History of bladder suspension procedure History of hysterectomy History of incisional hernia repair History of Ronen fundoplication (10/21/16) History of repair of hiatal hernia (10/21/16) Social History household members: none housing: apartment Smoking Status: Never smoker second hand exposure: No alcohol intake: never substance use type: does not use caffeine: Yes Type: coffee Number of servings: 1 what type of physical activity do you participate in: none frequency: does not exercise EXAM Physical Exam Const Vital Signs: 08/20/24 10:48 08/20/24 11:47 08/20/24 12:00 Temperature 98 F Temperature Source Temporal Pulse Rate 69 66 66 Respiratory Rate 18 19 H 19 H Blood Pressure 153/75 H 141/77 H 141/77 H Blood Pressure Mean 101 98 98 Pulse Ox 98 99 99 Oxygen Delivery Method Room Air Nasal Cannula Nasal Cannula 08/20/24 13:00 08/20/24 14:00 Temperature Temperature Source Pulse Rate 66 64 Respiratory Rate 19 H 20 H Blood Pressure 150/76 H Blood Pressure Mean 100 Pulse Ox 100 99 Oxygen Delivery Method Room Air Room Air MDM MDM MDM Narrative Medical decision making narrative: HISTORY OF PRESENT ILLNESS: Chief complaint: Abdominal pain 88-year-old female with history of aortic valve replacement, nonischemic cardiomyopathy, hypertension and obesity presents with abdominal pain. Notes diffuse upper abdominal pain that began yesterday. Denies chest pain or shortness of breath. Notes loose stools but no melena hematochezia hematemesis noted. No fevers. No urinary complaints noted. REVIEW OF SYSTEMS: Pertinent positives: Abdominal pain Pertinent negatives: As per HPI PHYSICAL EXAM: Nursing triage notes reviewed, Vital signs reviewed Constitutional: please see mdm HENT: MMM Eyes: Pupils equal round and reactive to light, Extraocular muscles intact Neck: No stridor, no JVD, full neck ROM Lungs: Clear to auscultation, No wheezing or rales. No increased work of breathing, no conversational dyspnea, no accessory muscle use, no nasal flaring. No respiratory distress noted Heart: Regular rate and rhythm, No murmurs, No rubs and No gallops, 2+ distal pulses (radial, femoral, posterior tibial) in all extremities Abdomen: Soft, there is no tenderness, rigidity, rebound or guarding, no obvious peritoneal signs, no palpable pulsatile abdominal masses, no auscultated abdominal bruit : No CVAT Extremities: No edema Neuro: No new focal neurological deficits, cranial nerves II through XII intact, 5/5 strength in all present extremities. Intact sensation to light touch in all present extremities, 2+ reflexes bilateral patella tendons. Skin: No rash or lesions noted MEDICAL DECISION MAKING: Chief Complaint: please see HPI External records reviewed: Reviewed prior imaging studies: Reviewed CT scan of the abdomen pelvis from 2023 which showed a mild hiatal hernia, diverticulosis but no acute intra-abdominal abnormalities. Factors affecting care: As per HPI Social determinants of health: none History obtained from others: none Consults: none [facility] Narrative: The patient was initially hemodynamically stable, afebrile and nontoxic-appearing. Exam with diffuse abdominal pain mostly in epigastrium. Negative Cisse sign. I considered the following differential diagnosis: AAA, small bowel obstruction, abdominal perforation, appendicitis, pancreatitis, hepatobiliary pathology (acute cholecystitis), mesenteric ischemia, pathology (ie nephrolithiasis, pyelonephritis). I obtained lab and imaging to further determine if the patient was suffering from a life-threatening etiology. Initially treat the patient with IV fluids, 2 mg IV morphine and Toradol. ALL IMAGES (IF OBTAINED) HAVE BEEN PERSONALLY REVIEWED AND INTERPRETED BY MYSELF. EKG with normal sinus rhythm, rate of 68, normal axis, normal intervals, no STEMI CBC without leukocytosis, severe anemia, no thrombocytopenia. BMP without evidence of significant electrolyte abnormalities, no anion gap, no acute kidney injury. Lipase is wnl indicating no pancreatic inflammation. Urinalysis shows no evidence of urinary inflammation suggestive of UTI CT scan of the abdomen pelvis showed no evidence of obvious intra-abdominal surgical pathology. Upon reassessment patient abdominal exam is benign. No clear etiology to represent the patient's symptoms. Could be inflammatory in origin. Not life-threatening based on negative CT scan and labs. Patient is referred for discharge home with home treatment time ibuprofen and Zofran. Will give prompt GI follow-up. The patient and/or family, caregivers express understanding. The patient and/or family, caregivers agrees with the plan. Shared decision making: I will have a discussion with the patient and or visitors regarding risk/benefits of further testing or admission. They will be made aware of of the risk/benefits inherent in this decision they will be given the opportunity to voice understanding. Total critical care time today provided was at least 0 minutes. This excludes separately billable procedures. Critical care time (if documented) is secondary to the patient having high probability of clinically significant/life threatening deterioration in the patient's condition which required my urgent intervention. Impression: 1. Acute abdominal pain 2. History of GERD Dispo: Discharge home This note was generated with [employer] dictation software. It may contain incorrect words, spelling, and punctuation that were not noted in review of the chart prior to signing. Lab Data Labs: Laboratory Results - last 24 hr 08/20/24 08/20/24 11:05 12:04 WBC 7.8 RBC 4.28 Hgb 13.2 Hct 40.6 MCV 94.9 MCH 30.8 MCHC 32.5 RDW Std Deviation 49.0 H RDW Coeff of Fabricio 14.1 Plt Count 169 MPV 12.0 Immature Gran % (Auto) 0.400 Neut % (Auto) 70.2 H Lymph % (Auto) 17.6 L [place] % (Auto) 9.5 Eos % (Auto) 1.4 Baso % (Auto) 0.9 Absolute Neuts (auto) 5.5 Absolute Lymphs (auto) 1.37 Nucleated RBC % 0 Sodium 141 Potassium 4.1 Chloride 103 Carbon Dioxide 25.9 Anion Gap 12 BUN 18 Creatinine 1.04 Estim Creat Clear Calc 39.83 L Est GFR (MDRD) Non-Af 52 L BUN/Creatinine Ratio 17.0 Glucose 92 Calcium 9.4 Lipase 16 Urine Color Yellow Urine Clarity Clear Urine pH 7.0 Ur Specific Clune 1.010 Urine Protein Negative Urine Glucose (UA) Normal Urine Ketones Negative Urine Occult Blood Negative Urine Nitrite Negative Urine Bilirubin Negative Urine Urobilinogen Normal Ur Leukocyte Esterase Negative Urine RBC 0 SEEN Urine WBC 0 SEEN Ur Squamous Epith Cells 0 SEEN Urine Bacteria 0 SEEN Urine Mucus 0 SEEN Radiography Diagnostic Testing: Clinical Impression(s) from Imaging Studies Abdomen/Pelvis CT 08/20/24 11:03 IMPRESSION: 1. No acute abdominopelvic finding. 2. Chronic findings as described. Reading Location: [facility] Discharge Plan Triage Chief Complaint: Abd Pain ED Provider: Celso Martinez Dx/Rx/DC Orders Prescriptions: No Action omeprazole 40 mg capsule,delayed release(DR/EC) 40 mg PO DAILY Patient Comments: take 1 capsule by mouth once daily levothyroxine 112 mcg tablet 112 mcg PO QDAY Trelegy Ellipta 100-62.5-25 mcg blister with device 1 ea inhalation QDAY multivitamin Tablet 1 tab PO DAILY furosemide 40 mg tablet 40 mg PO DAILY amlodipine 2.5 mg tablet 2.5 mg PO DAILY Qty: 90 3RF Primary Care Provider: LUIZ PEREIRA Referrals: LUIZ PEREIRA, [employer] [Primary Care Provider] - Print Language: Hungarian
--- NOTE | 2024-08-20 11:03 | CT_ITS ---
PROCEDURE: ABDOMEN/PELVIS W IV CONT ONLY 08/20/2024 REASON FOR EXAM: UPPER ABDOMINAL PAIN TECHNIQUE: ABDOMEN/PELVIS W IV CONT ONLY Coronal and Sagittal reconstruction series were provided. CONTRAST: Isovue 370 VOLUME: 100 mL One or more dose reduction techniques were used (e.g., Automated exposure control, adjustment of the mA and/or kV according to patient size, use of iterative reconstruction technique. RADIATION DOSE SUMMARY: DLP: 1300 mGycm COMPARISON: CT chest, abdomen and pelvis 01/03/2024. FINDINGS: Lung bases: Persistent elevation of the right hemidiaphragm. Partially visualized cardiomegaly with prior median sternotomy and aortic valve repair. Liver: The liver is normal in size with scattered hypodensities, likely cysts. The major portal veins are patent. No biliary ductal dilation. Gallbladder: No radiopaque stones within the gallbladder. Spleen: Normal in size. Pancreas: Markedly atrophic. Adrenals: No adrenal mass. Kidneys: Unchanged severe left renal atrophy. No hydronephrosis or nephrolithiasis. Bladder: Distended and unremarkable. Reproductive Organs: Surgically absent. Bowel: Prior Ronen fundoplication with small residual hiatal hernia. Patulous lower esophagus. The bowel loops are nondilated. No ascites or free air. Moderate distal colonic diverticulosis. No inflammatory mass in the expected region of the appendix. Lymph nodes: No suspicious lymph node enlargement. Vasculature: Moderate mixed plaque of the aortoiliac vessels. Bones: Thoracolumbar spondylosis CT/Abdomen/Pelvis W IV Cont ONLY IMPRESSION: 1. No acute abdominopelvic finding. 2. Chronic findings as described. Reading Location: [id number]
[2024-08-20 11:19] LABS: Hematocrit 40.6 % (37-47); Hemoglobin 13.2 g/dL (12.0-15.0); Immature Granulocytes Count 0.030 X10^3/uL (0.0-0.0); Mean Corp Hgb Conc 32.5 g/dL (32-36); Mean Corpuscular Volume 94.9 fL (81-99); Mean Platelet Vol. 12.0 fl (6.2-12.0); NRBC Flagged by Analyzer 0 % (0-5); Platelet Count 169 K/mm3 (150-450); RBC Distribution Width CV 14.1 % (11.6-14.6); RBC Distribution Width SD 49.0 fl (35.1-43.9); Red Blood Count 4.28 M/mm3 (4.2-5.4); White Blood Count 7.8 K/mm3 (4.4-11.0)
[2024-08-20 11:40] LABS: Anion Gap 12 (5-15); BUN 18 mg/dL (4-19); BUN/Creat Ratio 17.0 RATIO (10-20); Calcium,Total 9.4 mg/dL (7.6-11.0); Carbon Dioxide 25.9 mmol/L (21.0-32.0); Chloride 103 mmol/L (98-108); Estimated Creatinine Clearance 39.83 ml/min (50-250); Glucose 92 mg/dL (70-99); Lipase 16 U/L (13-75); Potassium 4.1 mmol/L (3.3-5.1)
[2024-08-20] MEDS: Famotidine 200 MG/20 ML MDV 20 MG in 0.9% Normal Saline (Pres. free 8 ML 300 MG IV (11:45)
[2024-08-20] MEDS: 0.9% Normal Saline (1000mL) 1,000 ML 999 ML IV (11:46)
--- NOTE | 2024-08-20 11:49 | EKG12_ITS ---
Test Reason : ABD PAIN Blood Pressure : */* mmHG Vent. Rate : 68 BPM Atrial Rate : 68 BPM P-R Int : 138 ms QRS Dur : 128 ms QT Int : 446 ms P-R-T Axes : 81 83 133 degrees QTcB Int : 474 ms Normal sinus rhythm Possible Left atrial enlargement Non-specific intra-ventricular conduction block Cannot rule out Septal infarct , age undetermined T wave abnormality, consider lateral ischemia Abnormal ECG Confirmed by Chandler Beard ([id number]), publishing editor HOLLIE MORENO ([id number]) on 08/21/2024 1:10:09 PM Referred By: Confirmed By: Chandler Beard
--- OUTSIDE RECORDS SUMMARY | 2024-08-20 12:09 | XMS RPT_ITS | CCD ---
Author Organization [facility] Care Team Providers Care Culinary Intern Name Role Phone PROVIDER, UNKNOWN Unavailable Unavailable PROVIDER, UNKNOWN Unavailable Unavailable Divina Smart Unavailable Unavaila ble PROVIDER, UNKNOWN Unavailable Unavailable Divina Smart Unavailable Unavaila ble Aldair Santos Unavailable Unavailable DIVINA SMART Referring Unavailable DIVINA SMART DO Primary Care Physician [phone] DO Divina Smart Primary Care Provider Unavail able DO Divina Smart Referring Provider UnavailDr. Hernan Haas Attending Provider [phone] Divina Smart Primary Care Provider [phone] DO Divina Holloway Primary Care Provider Anna vailable DO Divina Holloway Referring Provider GURVINDER Lucas Attending Provider Divina Smart DO Primary Care Provider [phone] Dr. Divina Smart Primary Care Provider Dr. Divina Smart Referring Provider [phone] GURVINDER Castro Attending Provider DO Divina Holloway Referring Provider Dr. Hernan Trivedi Attending Provider [phone] Divina Smart Primary Care Provider DO Divina Holloway Referring Provider Unavai Code 3.5 - 5.1 mmol/L AO ADM SS Protein [Mass/Vol] 6.9 G/dL Invalid Interpretation Code 6.4 - 8.2 G/dL AO ADM SS RBC (Bld) [#/Vol] 4.96 106/mcL Invalid Interpretation Code 4.20 - 5.40 10^6/mcL AO Workflow SS Sodium [Moles/Vol] 141 mmol/L Invalid Interpretation Code 136 - 145 mmol/L AO ADM SS TSH Qn 2.01 m[IU]/L Invalid Interpretation Code 0.36 - 3.74 mcIU/mL AO ADM SS Urea nitrogen [Mass/Vol] 25 mg/dL Invalid Interpretation Code 7 - 18 mg/dL AO ADM SS Urea nitrogen/Creatinine [Mass ratio] 20 ratio Invalid Interpretation Code 7 - 27 ratio AO ADM SS Uric Acid Lvl 7.8 mg/dL Invalid Interpretation Code 2.6 - 6.2 mg/dL AO ADM SS WBC (Bld) [#/Vol] 10.0 103/mcL Invalid Interpretation Code 4.6 - 10.8 10^3/mcL AO Workflow SS Absolute lymphocyte countOrd ered By: Dr. Olivier on 07-14-2022 Lymphocytes Auto (Unsp spec) [#/Vol] 1.34 10*3/uL 0.83-4.51 [facility] Basophil percentageOrdered B y: Dr. Olivier on 07-14-2022 Basophil percentage 0-5 SEEN /hpf 0-5 [facility] Basophils/100 WBC (Bld) 0.7 % 0-1 [facility] Chloride [Moles/Vol] 107 mmol/L 98-107 [facility] Eosinophils/100 WBC (Bld) 1.0 % 0-5 [facility] Glucose [Mass/Vol] 92 mg/dL 74-106 [facility] Neutrophils (Bld) [#/Vol] 5.2 10*3/uL 2.0-7.7 [facility] Neutrophils/100 WBC (Bld) 71.3 % 47-70 [facility] Potassium [Moles/Vol] 5.2 mmol/L 3.5-5.1 [facility] Sodium [Moles/Vol] 140 mmol/L 136-145 [facility] WBC (Bld) [#/Vol] 7.4 10*3/uL 4.4-11.0 [facility] Bilirubin Test strip Ql (U)O rdered By: Dr. Olivier on 07-14-2022 Bilirubin Ql (U) Negative Negative [facility] Blood erythrocytes count (nu mber/volume)Ordered By: Dr. Olivier on 07-14-2022 RBC (Bld) [#/Vol] 4.74 10*6/uL 4.2-5.4 [facility] Blood hemoglobin measurement (mass/volume)Ordered By: Dr. Olivier on 07-14-2022 Hemoglobin (Bld) [Mass/Vol] 14.0 g/dL 12.0-15.0 [facility] Blood lymphocytes/100 leukoc ytesOrdered By: Dr. Olivier on 07-14-2022 Lymphocytes/100 WBC (Bld) 18.2 % 19-41 [facility] Blood monocytes/100 leukocyt esOrdered By: Dr. Olivier on 07-14-2022 Monocytes/100 WBC (Bld) 8.4 % 0-10 [facility] Blood platelet mean volumeOr dered By: Dr. Olivier on 07-14-2022 Platelet mean volume (Bld) [Entitic vol] 11.9 fL 6.2-12.0 [facility] Determination of erythrocyte mean corpuscular volume (MCV)Ordered By: Dr. Olivier on 07-14-2022 MCV (RBC) [Entitic vol] 94.3 fL 81-99 [facility] Hematocrit Auto (Bld) [Volum e fraction]Ordered By: Dr. Olivier on 07-14-2022 Hematocrit (Bld) [Volume fraction] 44.7 % 37-47 [facility] Ketones Test strip Ql (U)Ord ered By: Dr. Olivier on 07-14-2022 Ketones Ql (U) Negative Negative [facility] Laboratory - Chemistry and C hemistry - challengeOrdered By: Dr. Olivier on 07-14-2022 CO2 [Moles/Vol] 28.0 mmol/L 21.0-32.0 [facility] Urea nitrogen/Creatinine [Mass ratio] 21.2 mg/mg 10-20 [facility] Laboratory - Hematology and Cell countsOrdered By: Dr. Olivier on 07-14-2022 Erythrocyte distribution width (RBC) [Entitic vol] 45.0 fL 35.1-43.9 [facility] Erythrocyte distribution width (RBC) [Ratio] 12.9 % 11.6-14.6 [facility] Immature granulocytes/100 WBC (Bld) 0.400 % 0.0-0.9 [facility] Comment on above: IG% - Immature Granu locytes (promyelocytes, myelocytes and metamyelocytes) > 1% indicates that a LEFT SHIFT is Present. MCH (RBC) [Entitic mass] 29.5 pg 27.0-32.0 [facility] Nucleated RBC/100 WBC (Bld) [Ratio] 0 % 0-5 [facility] MCHC Auto (RBC) [Mass/Vol]Or dered By: Dr. Olivier on 07-14-2022 MCHC (RBC) [Mass/Vol] 31.3 g/dL 32-36 [facility] Mucus LM Ql (Urine sed)Order ed By: Dr. Olivier on 07-14-2022 Mucus Ql (Urine sed) 0 SEEN /hpf [facility] Nitrite Test strip Ql (U)Ord ered By: Dr. Olivier on 07-14-2022 Nitrite Ql (U) Negative Negative [facility] No Panel InformationOrdered By: Dr. Olivier on 07-14-2022 Estimated Creatinine Clearance Calc 26.97 ml/min [facility] Estimated GFR (MDRD) Amer 59 mL/min >60 [facility] Comment on above: GFR Calc Estimated GFR (MDRD) Non-Af Amer 48 mL/min >60 [facility] Comment on above: Non- GFR Calc Platelets bldOrdered By: Dr. Olivier on 07-14-2022 Platelets (Bld) [#/Vol] 170 10*3/uL 150-450 [facility] Protein Test strip Ql (U)Ord ered By: Dr. Olivier on 07-14-2022 Protein Ql (U) Negative Negative [facility] Serum or plasma calcium hermilo urement (mass/volume)Ordered By: Dr. Olivier on 07-14-2022 Calcium [Mass/Vol] 9.0 mg/dL 8.5-10.1 [facility] Serum or plasma creatinine m easurement (mass/volume)Ordered By: Dr. Olivier on 07-14-2022 Creatinine [Mass/Vol] 1.13 mg/dL 0.55-1.02 [facility] Comment on above: The validity of the calculated GFR & GFRAA in patients over 70 years has not been determined. Clinical correlation is essential. Serum or plasma urea nitroge n measurement (mass/volume)Ordered By: Dr. Olivier on 07-14-2022 Urea nitrogen [Mass/Vol] 24 mg/dL 7-18 [facility] Squamous epithelial cells de tection in urine sediment by light microscopyOrdered By: Dr. Olivier on 07-14-2022 Epithelial cells.squamous LM Ql (Urine sed) 0-5 SEEN /hpf 5-10 [facility] Thin prep Papanicolaou smear with manual screeningOrdered By: Dr. Olivier on 07-14-2022 Thin prep Papanicolaou smear with manual screening 5 5-15 [facility] Urine blood detectionOrdered By: Dr. Olivier on 07-14-2022 RBC Ql (U) Negative Negative [facility] RBC Ql (U) 0 SEEN /hpf 0-5 [facility] Urine clarityOrdered By: Dr. Olivier on 07-14-2022 Clarity (U) Clear Clear [facility] Urine color determinationOrd ered By: Dr. Olivier on 07-14-2022 Color (U) Yellow Yellow [facility] Urine glucose detectionOrder ed By: Dr. Olivier on 07-14-2022 Glucose Ql (U) Normal mg/dl Normal [facility] Urine leukocyte esterase det ection by dipstickOrdered By: Dr. Olivier on 07-14-2022 Leukocyte esterase Test strip Ql (U) 25 /ul Negative [facility] Urine pHOrdered By: Dr. Erika davalos on 07-14-2022 pH (U) 7.0 [pH] 5.0 - 8.0 [facility] Urine sediment bacteria coun t by microscopy (number/high power field)Ordered By: Dr. Olivier on 07-14-2022 Bacteria LM.HPF (Urine sed) [#/Area] 0 /[HPF] None Seen [facility] Urine specific gravity measu rementOrdered By: Dr. Olivier on 07-14-2022 Specific gravity (U) [Rel density] 1.010 1.002-1.030 [facility] Urobilinogen Auto test strip Ql (U)Ordered By: Dr. Olivier on 07-14-2022 Urobilinogen Ql (U) Normal mg/dl Normal [facility] Absolute lymphocyte counton 09-11-2021 Lymphocytes Auto (Unsp spec) [#/Vol] 0.78 10*3/uL 0.83-4.51 [facility] Work Phone: Basophil percentageon 2021 Basophil percentage >100 SEEN /hpf 0-5 [facility] Work Phone: Basophils/100 WBC (Bld) 0.3 % 0-1 [facility] Work Phone: Chloride [Moles/Vol] 102 mmol/L 98-107 [facility] Work Phone: Eosinophils/100 WBC (Bld) 0.0 % 0-5 [facility] Work Phone: Glucose [Mass/Vol] 123 mg/dL 74-106 [facility] Work Phone: Comment on above: Fasting Glucose resu lt from 100 to 125 mg/dL suggests IMPAIRED HOMEOSTASIS per A.D.A. criteria. Neutrophils (Bld) [#/Vol] 9.7 10*3/uL 2.0-7.7 [facility] Work Phone: [phone] Neutrophils/100 WBC (Bld) 84.0 % 47-70 [facility] Work Phone: Potassium [Moles/Vol] 4.6 mmol/L 3.5-5.1 [facility] Work Phone: [phone] Sodium [Moles/Vol] 134 mmol/L 136-145 [facility] Work Phone: WBC (Bld) [#/Vol] 11.6 10*3/uL 4.4-11.0 [facility] Work Phone: Bilirubin Test strip Ql (U)o n 09-11-2021 Bilirubin Ql (U) Negative Negative [facility] Work Phone: Blood erythrocytes count (nu mber/volume)on 09-11-2021 RBC (Bld) [#/Vol] 4.25 10*6/uL 4.2-5.4 [facility] Work Phone: Blood hemoglobin measurement (mass/volume)on 09-11-2021 Hemoglobin (Bld) [Mass/Vol] 13.3 g/dL 12.0-15.0 [facility] Work Phone: Blood lymphocytes/100 leukoc yteson 09-11-2021 Lymphocytes/100 WBC (Bld) 6.7 % 19-41 [facility] Work Phone: Blood monocytes/100 leukocyt eson 09-11-2021 Monocytes/100 WBC (Bld) 8.7 % 0-10 [facility] Work Phone: Blood platelet mean volumeon 09-11-2021 Platelet mean volume (Bld) [Entitic vol] 12.3 fL 6.2-12.0 [facility] Work Phone: Determination of erythrocyte mean corpuscular volume (MCV)on 09-11-2021 MCV (RBC) [Entitic vol] 93.2 fL 81-99 [facility] Work Phone: Hematocrit Auto (Bld) [Volum e fraction]on 09-11-2021 Hematocrit (Bld) [Volume fraction] 39.6 % 37-47 [facility] Work Phone: Ketones Test strip Ql (U)on 09-11-2021 Ketones Ql (U) Negative Negative [facility] Work Phone: Laboratory - Chemistry and C hemistry - challengeon 09-11-2021 CO2 [Moles/Vol] 27.0 mmol/L 21.0-32.0 [facility] Work Phone: Natriuretic peptide B (Bld) [Mass/Vol] 225.4 pg/mL 0-100 [facility] Work Phone: Urea nitrogen/Creatinine [Mass ratio] 20.3 mg/mg 10-20 [facility] Work Phone: Laboratory - Hematology and Cell countson 09-11-2021 Erythrocyte distribution width (RBC) [Entitic vol] 47.8 fL 35.1-43.9 [facility] Work Phone: Erythrocyte distribution width (RBC) [Ratio] 14.1 % 11.6-14.6 [facility] Work Phone: Immature granulocytes/100 WBC (Bld) 0.300 % 0.0-0.9 [facility] Work Phone: Comment on above: IG% - Immature Granu locytes (promyelocytes, myelocytes and metamyelocytes) > 1% indicates that a LEFT SHIFT is Present. MCH (RBC) [Entitic mass] 31.3 pg 27.0-32.0 [facility] Work Phone: Nucleated RBC/100 WBC (Bld) [Ratio] 0 % 0-5 [facility] Work Phone: MCHC Auto (RBC) [Mass/Vol]on 09-11-2021 MCHC (RBC) [Mass/Vol] 33.6 g/dL 32-36 [facility] Work Phone: Mucus LM Ql (Urine sed)on Mucus Ql (Urine sed) 0 SEEN /hpf [facility] Work Phone: Nitrite Test strip Ql (U)on 09-11-2021 Nitrite Ql (U) Positive Negative [facility] Work Phone: No Panel Informationon 09-11 Estimated Creatinine Clearance Calc 25.23 ml/min [facility] Work Phone: Estimated GFR (MDRD) Amer 53 mL/min >60 [facility] Work Phone: Comment on above: GFR Calc Estimated GFR (MDRD) Non-Af Amer 44 mL/min >60 [facility] Work Phone: Comment on above: Non- GFR Calc Thyroid Stimulating Hormone (TSH) 1.32 uIU/mL 0.358-3.74 [facility] Work Phone: Troponin I High Sensitivity 22 pg/mL 3.0-54.0 [facility] Work Phone: Comment on above: Please Note: New [place] t Units and Gender Specific Reference Ranges. For more information see Policy Stat Procedure [place] High Sensitivity Troponin (TNIH) and attachments. Platelets bldon 08-04-2022 Platelets (Bld) [#/Vol] 130 10*3/uL 150-450 [facility] Work Phone: Protein Test strip Ql (U)on 09-11-2021 Protein Ql (U) 100 mg/dl Negative [facility] Work Phone: Serum or plasma calcium hermilo urement (mass/volume)on 09-11-2021 Calcium [Mass/Vol] 8.6 mg/dL 8.5-10.1 [facility] Work Phone: Serum or plasma creatinine m easurement (mass/volume)on 09-11-2021 Creatinine [Mass/Vol] 1.23 mg/dL 0.55-1.02 [facility] Work Phone: Comment on above: The validity of the calculated GFR & GFRAA in patients over 70 years has not been determined. Clinical correlation is essential. Serum or plasma urea nitroge n measurement (mass/volume)on 09-11-2021 Urea nitrogen [Mass/Vol] 25 mg/dL 7-18 [facility] Work Phone: Squamous epithelial cells de tection in urine sediment by light microscopyon 09-11-2021 Epithelial cells.squamous LM Ql (Urine sed) 0 SEEN /hpf 5-10 [facility] Work Phone: Thin prep Papanicolaou smear with manual screeningon 09-11-2021 Thin prep Papanicolaou smear with manual screening 5 5-15 [facility] Work Phone: Urine blood detectionon 08-0 RBC Ql (U) 250 /ul Negative [facility] Work Phone: RBC Ql (U) 0 SEEN /hpf 0-5 [facility] Work Phone: Urine clarityon 09-11-2021 Clarity (U) Cloudy Clear [facility] Work Phone: Urine color determinationon 09-11-2021 Color (U) Yellow Yellow [facility] Work Phone: Urine glucose detectionon Glucose Ql (U) Normal mg/dl Normal [facility] Work Phone: Urine leukocyte esterase det ection by dipstickon 09-11-2021 Leukocyte esterase Test strip Ql (U) 500 /ul Negative [facility] Work Phone: Urine pHon 09-11-2021 pH (U) 6.0 [pH] 5.0 - 8.0 [facility] Work Phone: Urine sediment bacteria coun t by microscopy (number/high power field)on 09-11-2021 Bacteria LM.HPF (Urine sed) [#/Area] RARE /hpf None Seen [facility] Work Phone: Urine specific gravity measu rementon 09-11-2021 Specific gravity (U) [Rel density] 1.010 1.002-1.030 [facility] Work Phone: Urobilinogen Auto test strip Ql (U)on 09-11-2021 Urobilinogen Ql (U) Normal mg/dl Normal [facility] Work Phone: Basophil percentageon 2021 Chloride [Moles/Vol] 106 mmol/L 98-107 [facility] Work Phone: Glucose [Mass/Vol] 120 mg/dL 74-106 [facility] Work Phone: Comment on above: Fasting Glucose resu lt from 100 to 125 mg/dL suggests IMPAIRED HOMEOSTASIS per A.D.A. criteria. Potassium [Moles/Vol] 4.4 mmol/L 3.5-5.1 [facility] Work Phone: Sodium [Moles/Vol] 138 mmol/L 136-145 [facility] Work Phone: Basophil percentage 0-5 SEEN /hpf 0-5 [facility] Work Phone: Bilirubin Test strip Ql (U)o n 08-14-2021 Bilirubin Ql (U) Negative Negative [facility] Work Phone: Ketones Test strip Ql (U)on 08-14-2021 Ketones Ql (U) Negative Negative [facility] Work Phone: Laboratory - Chemistry and C hemistry - challengeon 08-14-2021 CO2 [Moles/Vol] 28.0 mmol/L 21.0-32.0 [facility] Work Phone: Urea nitrogen/Creatinine [Mass ratio] 24.5 mg/mg 10-20 [facility] Work Phone: Mucus LM Ql (Urine sed)on Mucus Ql (Urine sed) 1+ /hpf [facility] Work Phone: Nitrite Test strip Ql (U)on 08-14-2021 Nitrite Ql (U) Negative Negative [facility] Work Phone: No Panel Informationon 08-14 Estimated Creatinine Clearance Calc 29.28 ml/min [facility] Work Phone: Estimated GFR (MDRD) Amer 63 mL/min >60 [facility] Work Phone: Comment on above: GFR Calc Estimated GFR (MDRD) Non-Af Amer 52 mL/min >60 [facility] Work Phone: Comment on above: Non- GFR Calc Protein Test strip Ql (U)on 08-14-2021 Protein Ql (U) Negative Negative [facility] Work Phone: Serum or plasma calcium hermilo urement (mass/volume)on 08-14-2021 Calcium [Mass/Vol] 8.8 mg/dL 8.5-10.1 [facility] Work Phone: Serum or plasma creatinine m easurement (mass/volume)on 08-14-2021 Creatinine [Mass/Vol] 1.06 mg/dL 0.55-1.02 [facility] Work Phone: Comment on above: The validity of the calculated GFR & GFRAA in patients over 70 years has not been determined. Clinical correlation is essential. Serum or plasma urea nitroge n measurement (mass/volume)on 08-14-2021 Urea nitrogen [Mass/Vol] 26 mg/dL 7-18 [facility] Work Phone: Squamous epithelial cells de tection in urine sediment by light microscopyon 08-14-2021 Epithelial cells.squamous LM Ql (Urine sed) 5-10 SEEN /hpf 5-10 [facility] Work Phone: Thin prep Papanicolaou smear with manual screeningon 08-14-2021 Thin prep Papanicolaou smear with manual screening 4 5-15 [facility] Work Phone: Urine blood detectionon 07-0 RBC Ql (U) Negative Negative [facility] Work Phone: RBC Ql (U) 0 SEEN /hpf 0-5 [facility] Work Phone: Urine clarityon 08-14-2021 Clarity (U) Clear Clear [facility] Work Phone: Urine color determinationon 08-14-2021 Color (U) Straw Yellow [facility] Work Phone: Urine glucose detectionon Glucose Ql (U) Normal mg/dl Normal [facility] Work Phone: Urine leukocyte esterase det ection by dipstickon 08-14-2021 Leukocyte esterase Test strip Ql (U) 25 /ul Negative [facility] Work Phone: Urine pHon 08-14-2021 pH (U) 7.0 [pH] 5.0 - 8.0 [facility] Work Phone: Urine sediment bacteria coun t by microscopy (number/high power field)on 08-14-2021 Bacteria LM.HPF (Urine sed) [#/Area] 2 /[HPF] None Seen [facility] Work Phone: Urine specific gravity measu rementon 08-14-2021 Specific gravity (U) [Rel density] 1.005 1.002-1.030 [facility] Work Phone: Urobilinogen Auto test strip Ql (U)on 08-14-2021 Urobilinogen Ql (U) Normal mg/dl Normal [facility] Work Phone: Absolute lymphocyte counton 07-26-2021 Lymphocytes Auto (Unsp spec) [#/Vol] 1.48 10*3/uL 0.83-4.51 [facility] Work Phone: Basophil percentageon 2021 Basophils/100 WBC (Bld) 0.6 % 0-1 [facility] Work Phone: Chloride [Moles/Vol] 103 mmol/L 98-107 [facility] Work Phone: [phone] Eosinophils/100 WBC (Bld) 1.0 % 0-5 [facility] Work Phone: [phone] Glucose [Mass/Vol] 109 mg/dL 74-106 [facility] Work Phone: Comment on above: Fasting Glucose resu lt from 100 to 125 mg/dL suggests IMPAIRED HOMEOSTASIS per A.D.A. criteria. Neutrophils (Bld) [#/Vol] 6.0 10*3/uL 2.0-7.7 [facility] Work Phone: [phone] Neutrophils/100 WBC (Bld) 72.8 % 47-70 [facility] Work Phone: Potassium [Moles/Vol] 4.5 mmol/L 3.5-5.1 [facility] Work Phone: Sodium [Moles/Vol] 139 mmol/L 136-145 [facility] Work Phone: [phone] WBC (Bld) [#/Vol] 8.2 10*3/uL 4.4-11.0 [facility] Work Phone: Blood erythrocytes count (nu mber/volume)on 07-26-2021 RBC (Bld) [#/Vol] 4.50 10*6/uL 4.2-5.4 [facility] Work Phone: [phone] Blood hemoglobin measurement (mass/volume)on 07-26-2021 Hemoglobin (Bld) [Mass/Vol] 13.8 g/dL 12.0-15.0 [facility] Work Phone: Blood lymphocytes/100 leukoc yteson 07-26-2021 Lymphocytes/100 WBC (Bld) 18.0 % 19-41 [facility] Work Phone: Blood monocytes/100 leukocyt eson 07-26-2021 Monocytes/100 WBC (Bld) 7.2 % 0-10 [facility] Work Phone: Blood platelet mean volumeon 07-26-2021 Platelet mean volume (Bld) [Entitic vol] 12.3 fL 6.2-12.0 [facility] Work Phone: CNOVon 07-26-2021 CNOV Office Visit ([facility] ) -- GONZALO LEI V ([id number]) [id number] F Date Time Provider Department 07/26/21 12:30 PM LIYA BENJAMIN During your visit today, we recorded the following information about you: Temperature Pulse Respiration Blood pressure 97.8 degrees 55/minute 20/minute 155/75 Liya Benjamin APRN.CNP 07/26/2021 1:14 PM Signed This note was created using Sirigenriter. Subjective Gonzalo Lei is a 85 year old female. Triage note: Gonzalo Lei is a 85 year old female presenting to the office with the complaint of knots to the ankles. Just noted last night. Was in the ER a couple weeks ago, had pneumonia and was taking antibiotics. Is to see her regular doctor on Wednesday about the pneumonia. At baseline she has swelling, is on lasix and spirolactone. Associated symptoms include bilateral lower extremity edema, fatigue, more short of breath than her baseline- mostly when she is walking. Still has lingering congestion from when she had pneumonia. Has been checking blood pressure at home- has been higher and worried about this. Doesn't want a stroke. Denies chest pain, dizziness, headaches. States her legs have never been this swollen before. OTC not used. Did elevate her feet. Used ice. ALLERGIES No Known Allergies Family History Reviewed Including Cardiac Diseases, Psychiatric Diseases, AND Substance Abuse Problem: Hypertension Relation: Mother Age of Onset: (Not Specified) Problem: Diabetes Relation: Mother Age of Onset: (Not Specified) Problem: Asthma Relation: Mother Age of Onset: (Not Specified) Problem: Stroke Relation: Father Age of Onset: (Not Specified) Problem: other (Enlarged Heart) Relation: Father Age of Onset: (Not Specified) Problem: Cancer Relation: Brother Age of Onset: (Not Specified) Problem: Heart disease Relation: Brother Age of Onset: (Not Specified) Problem: Hypertension Relation: Brother Age of Onset: (Not Specified) Problem: Hypertension Relation: Brother Age of Onset: (Not Specified) Problem: other (Lung Cancer) Relation: Brother Age of Onset: (Not Specified) Social History Tobacco Use Smoking status: Never Smoker Smokeless tobacco: Never Used Tobacco comment: used to smoke 3 packs per day Alcohol use: No Drug use: No Active Ambulatory Problems Aortic valve insufficiency Discharge planning issues Date Noted: 06/04/2017 Scarlet fever Hypothyroid HTN (hypertension) GERD (gastroesophageal reflux disease) Dyslipidemia Anemia Atelectasis Date Noted: 06/16/2017 Acute postoperative pain Date Noted: 06/16/2017 Gout Date Noted: 06/17/2017 Transition of care performed with sharing of clinical summary Date Noted: 06/19/2017 Paroxysmal atrial fibrillation (HCC) Date Noted: 06/20/2017 Sinus bradycardia Date Noted: 06/30/2017 Resolved Ambulatory Problems Preoperative testing Date Noted: 06/04/2017 On mechanically assisted ventilation (HCC) Date Noted: 06/15/2017 Cardiac insufficiency following cardiac surgery Date Noted: 06/16/2017 Postoperative hypotension Date Noted: 06/16/2017 Stress hyperglycemia Date Noted: 06/16/2017 Hypervolemia Date Noted: 06/17/2017 Past Medical History: No date: CHF (congestive heart failure) ([facility]) No date: [place] (myocardial infarction) ([facility]) No date: Syncope Review of Systems Constitutional: Positive for fatigue. HENT: Negative. Eyes: Negative. Respiratory: Positive for cough and shortness of breath. Cardiovascular: Positive for leg swelling. Gastrointestinal: Negative. Endocrine: Negative. Genitourinary: Negative. Musculoskeletal: Negative. Skin: Negative. Neurological: Negative. Hematological: Negative. Objective BP 155/75 Pulse (!) 55 Temp 36.6 ?C (97.8 ?F) (Oral) Resp 20 SpO2 96% Physical Exam Constitutional: General: She is awake. She is not in acute distress. Appearance: She is not toxic-appearing or diaphoretic. Cardiovascular: Rate and Rhythm: Bradycardia present. Rhythm irregular. Pulmonary: Effort: Pulmonary effort is normal. Musculoskeletal: Right lower le+ Pitting Edema present. Left lower le+ Pitting Edema present. Neurological: Mental Status: She is alert. Psychiatric: Behavior: Behavior is cooperative. Assessment and Plan (R60.0) Bilateral lower extremity edema (primary encounter diagnosis) Plan: CONSULT TO EMERGENCY MEDICINE Bilateral lower extremity edema is worse now than her baseline. Shortness of breath increased now with exertion. Recommending an ER evaluation for a higher level of evaluation. Left in stable condition with brother who will drive her to the ER now, [facility]. Liya Benjamin APRN.[employer] RESE[employer]ER 07/26/2021 1:07 PM Signed (R60.0) Bilateral lower extremity edema (primary encounter diagnosis) Plan: CONSULT TO EMERGENCY MEDICINE Bilateral lower extremity damien (more content not included)... Normal [facility] Determination of erythrocyte mean corpuscular volume (MCV)on 07-26-2021 MCV (RBC) [Entitic vol] 92.7 fL 81-99 [facility] Work Phone: Hematocrit Auto (Bld) [Volum e fraction]on 07-26-2021 Hematocrit (Bld) [Volume fraction] 41.7 % 37-47 [facility] Work Phone: Laboratory - Chemistry and C hemistry - challengeon 07-26-2021 CO2 [Moles/Vol] 30.0 mmol/L 21.0-32.0 [facility] Work Phone: Natriuretic peptide B (Bld) [Mass/Vol] 324.8 pg/mL 0-100 [facility] Work Phone: Urea nitrogen/Creatinine [Mass ratio] 18.2 mg/mg 10-20 [facility] Work Phone: Laboratory - Hematology and Cell countson 07-26-2021 Erythrocyte distribution width (RBC) [Entitic vol] 45.7 fL 35.1-43.9 [facility] Work Phone: Erythrocyte distribution width (RBC) [Ratio] 13.5 % 11.6-14.6 [facility] Work Phone: Immature granulocytes/100 WBC (Bld) 0.400 % 0.0-0.9 [facility] Work Phone: Comment on above: IG% - Immature Granu locytes (promyelocytes, myelocytes and metamyelocytes) > 1% indicates that a LEFT SHIFT is Present. MCH (RBC) [Entitic mass] 30.7 pg 27.0-32.0 [facility] Work Phone: Nucleated RBC/100 WBC (Bld) [Ratio] 0 % 0-5 [facility] Work Phone: MCHC Auto (RBC) [Mass/Vol]on 07-26-2021 MCHC (RBC) [Mass/Vol] 33.1 g/dL 32-36 [facility] Work Phone: No Panel Informationon 07-26 Estimated Creatinine Clearance Calc 31.35 ml/min [facility] Work Phone: Estimated GFR (MDRD) Amer 68 mL/min >60 [facility] Work Phone: Comment on above: GFR Calc Estimated GFR (MDRD) Non-Af Amer 57 mL/min >60 [facility] Work Phone: Comment on above: Non- GFR Calc Troponin I High Sensitivity 34 pg/mL 3.0-54.0 [facility] Work Phone: Comment on above: Please Note: New Brittni t Units and Gender Specific Reference Ranges. For more information see Policy Stat Procedure [place] High Sensitivity Troponin (TNIH) and attachments. Platelets bldon 07-26-2021 Platelets (Bld) [#/Vol] 164 10*3/uL 150-450 [facility] Work Phone: Serum or plasma calcium hermilo urement (mass/volume)on 07-26-2021 Calcium [Mass/Vol] 9.7 mg/dL 8.5-10.1 [facility] Work Phone: Serum or plasma creatinine m easurement (mass/volume)on 07-26-2021 Creatinine [Mass/Vol] 0.99 mg/dL 0.55-1.02 [facility] Work Phone: Comment on above: The validity of the calculated GFR & GFRAA in patients over 70 years has not been determined. Clinical correlation is essential. Serum or plasma urea nitroge n measurement (mass/volume)on 07-26-2021 Urea nitrogen [Mass/Vol] 18 mg/dL 7-18 [facility] Work Phone: Thin prep Papanicolaou smear with manual screeningon 07-26-2021 Thin prep Papanicolaou smear with manual screening 6 5-15 [facility] Work Phone: Absolute lymphocyte counton 07-09-2021 Lymphocytes Auto (Unsp spec) [#/Vol] 1.38 10*3/uL 0.83-4.51 [facility] Work Phone: Basophil percentageon 2021 Basophils/100 WBC (Bld) 0.6 % 0-1 [facility] Work Phone: Chloride [Moles/Vol] 104 mmol/L 98-107 [facility] Work Phone: Eosinophils/100 WBC (Bld) 1.5 % 0-5 [facility] Work Phone: Glucose [Mass/Vol] 108 mg/dL 74-106 [facility] Work Phone: Comment on above: Fasting Glucose resu lt from 100 to 125 mg/dL suggests IMPAIRED HOMEOSTASIS per A.D.A. criteria. Neutrophils (Bld) [#/Vol] 5.1 10*3/uL 2.0-7.7 [facility] Work Phone: Neutrophils/100 WBC (Bld) 70.2 % 47-70 [facility] Work Phone: Potassium [Moles/Vol] 4.7 mmol/L 3.5-5.1 [facility] Work Phone: Sodium [Moles/Vol] 139 mmol/L 136-145 [facility] Work Phone: WBC (Bld) [#/Vol] 7.2 10*3/uL 4.4-11.0 [facility] Work Phone: Basophil percentage 0 SEEN /hpf 0-[address] [facility] [address] [facility] Work Phone: Bilirubin Test strip Ql (U)o n 07-09-2021 Bilirubin Ql (U) Negative Negative [facility] Work Phone: Blood erythrocytes count (nu mber/volume)on 07-09-2021 RBC (Bld) [#/Vol] 4.65 10*6/uL 4.2-5.[address] Work Phone: Blood hemoglobin measurement (mass/volume)on 07-09-2021 Hemoglobin (Bld) [Mass/Vol] 14.1 g/dL 12.0-15.0 [facility] Work Phone: Blood lymphocytes/100 leukoc yteson 07-09-2021 Lymphocytes/100 WBC (Bld) 19.1 % 19-41 [facility] Work Phone: [phone] Blood monocytes/100 leukocyt eson 07-09-2021 Monocytes/100 WBC (Bld) 8.3 % 0-10 [facility] Work Phone: Blood platelet mean volumeon 07-09-2021 Platelet mean volume (Bld) [Entitic vol] 11.9 fL 6.2-12.0 [facility] Work Phone: Determination of erythrocyte mean corpuscular volume (MCV)on 07-09-2021 MCV (RBC) [Entitic vol] 94.0 fL 81-99 [facility] Work Phone: Hematocrit Auto (Bld) [Volum e fraction]on 07-09-2021 Hematocrit (Bld) [Volume fraction] 43.7 % 37-47 [facility] Work Phone: Ketones Test strip Ql (U)on 07-09-2021 Ketones Ql (U) Negative Negative [facility] Work Phone: Laboratory - Chemistry and C hemistry - challengeon 07-09-2021 CO2 [Moles/Vol] 30.0 mmol/L 21.0-32.0 [facility] Work Phone: Natriuretic peptide B (Bld) [Mass/Vol] 178.4 pg/mL 0-100 [facility] Work Phone: Urea nitrogen/Creatinine [Mass ratio] 22.6 mg/mg 10-20 [facility] Work Phone: Laboratory - Hematology and Cell countson 07-09-2021 Erythrocyte distribution width (RBC) [Entitic vol] 47.1 fL 35.1-43.9 [facility] Work Phone: Erythrocyte distribution width (RBC) [Ratio] 13.6 % 11.6-14.6 [facility] Work Phone: Immature granulocytes/100 WBC (Bld) 0.300 % 0.0-0.9 [facility] Work Phone: Comment on above: IG% - Immature Granu locytes (promyelocytes, myelocytes and metamyelocytes) > 1% indicates that a LEFT SHIFT is Present. MCH (RBC) [Entitic mass] 30.3 pg 27.0-32.0 [facility] Work Phone: Nucleated RBC/100 WBC (Bld) [Ratio] 0 % 0-5 [facility] Work Phone: MCHC Auto (RBC) [Mass/Vol]on 07-09-2021 MCHC (RBC) [Mass/Vol] 32.3 g/dL 32-36 [facility] Work Phone: Mucus LM Ql (Urine sed)on Mucus Ql (Urine sed) 0 SEEN /hpf [facility] Work Phone: Nitrite Test strip Ql (U)on 06-01-2022 Nitrite Ql (U) Negative Negative [facility] Work Phone: No Panel Informationon 07-09 Estimated Creatinine Clearance Calc 25.03 ml/min [facility] Work Phone: Estimated GFR (MDRD) Amer 53 mL/min >60 [facility] Work Phone: Comment on above: GFR Calc Estimated GFR (MDRD) Non-Af Amer 44 mL/min >60 [facility] Work Phone: Comment on above: Non- GFR Calc SARS-CoV-2 & FLU Antigen (Rapid) [facility] Work Phone: Troponin I High Sensitivity 18 pg/mL 3.0-54.0 [facility] Work Phone: Comment on above: Please Note: New Brittni t Units and Gender Specific Reference Ranges. For more information see Policy Stat Procedure [place] High Sensitivity Troponin (TNIH) and attachments. Platelets bldon 07-09-2021 Platelets (Bld) [#/Vol] 161 10*3/uL 150-450 [facility] Work Phone: Protein Test strip Ql (U)on 07-09-2021 Protein Ql (U) Negative Negative [facility] Work Phone: Serum or plasma calcium hermilo urement (mass/volume)on 07-09-2021 Calcium [Mass/Vol] 9.2 mg/dL 8.5-10.1 [facility] Work Phone: Serum or plasma creatinine m easurement (mass/volume)on 07-09-2021 Creatinine [Mass/Vol] 1.24 mg/dL 0.55-1.02 [facility] Work Phone: Comment on above: The validity of the calculated GFR & GFRAA in patients over 70 years has not been determined. Clinical correlation is essential. Serum or plasma urea nitroge n measurement (mass/volume)on 07-09-2021 Urea nitrogen [Mass/Vol] 28 mg/dL 7-18 [facility] Work Phone: Squamous epithelial cells de tection in urine sediment by light microscopyon 07-09-2021 Epithelial cells.squamous LM Ql (Urine sed) 0 SEEN /hpf 5-10 [facility] Work Phone: Thin prep Papanicolaou smear with manual screeningon 07-09-2021 Thin prep Papanicolaou smear with manual screening 5 5-15 [facility] Work Phone: Urine blood detectionon 06-0 RBC Ql (U) Negative Negative [facility] Work Phone: RBC Ql (U) 0 SEEN /hpf 0-5 [facility] Work Phone: Urine clarityon 07-09-2021 Clarity (U) Clear Clear [facility] Work Phone: Urine color determinationon 07-09-2021 Color (U) Yellow Yellow [facility] Work Phone: Urine glucose detectionon Glucose Ql (U) Normal mg/dl Normal [facility] Work Phone: Urine leukocyte esterase det ection by dipstickon 07-09-2021 Leukocyte esterase Test strip Ql (U) Negative Negative [facility] Work Phone: Urine pHon 07-09-2021 pH (U) 7.0 [pH] 5.0 - 8.0 [facility] Work Phone: Urine sediment bacteria coun t by microscopy (number/high power field)on 07-09-2021 Bacteria LM.HPF (Urine sed) [#/Area] 0 /[HPF] None Seen [facility] Work Phone: Urine specific gravity measu rementon 07-09-2021 Specific gravity (U) [Rel density] 1.005 1.002-1.030 [facility] Work Phone: Urobilinogen Auto test strip Ql (U)on 07-09-2021 Urobilinogen Ql (U) Normal mg/dl Normal [facility] Work Phone: LABORATORYOrdered By: Mumtaz Walker on 05-15-2021 Albumin BCP dye [Mass/Vol] 3.9 G/dL Invalid Interpretation Code 3.4 - 4.8 G/dL AO ADM SS Albumin/Globulin [Mass ratio] 1.3 {ratio} Invalid Interpretation Code 1.1 - 2.5 ratio AO ADM SS ALP [Catalytic activity/Vol] 92 U/L Invalid Interpretation Code 40 - 135 U/L AO ADM SS ALT With P-5'-P [Catalytic activity/Vol] 19 U/L Invalid Interpretation Code 14 - 59 U/L AO ADM SS AST With P-5'-P [Catalytic activity/Vol] 19 U/L Invalid Interpretation Code 10 - 40 U/L AO ADM SS Bilirubin [Mass/Vol] 0.4 mg/dL Invalid Interpretation Code 0.2 - 1.0 mg/dL AO ADM SS Calcium [Mass/Vol] 9.7 mg/dL Invalid Interpretation Code 8.4 - 10.2 mg/dL AO ADM SS Chloride [Moles/Vol] 104 mmol/L Invalid Interpretation Code 98 - 107 mmol/L AO ADM SS CO2 [Moles/Vol] 29 mmol/L Invalid Interpretation Code 23 - 31 mmol/L AO ADM SS Creatinine [Mass/Vol] 1.29 mg/dL Invalid Interpretation Code 0.55 - 1.02 mg/dL AO ADM SS Electrolyte Balance 8.0 mEq/L Invalid Interpretation Code 4.0 - 15.0 mEq/L AO ADM SS Globulin 2.9 G/dL Invalid Interpretation Code AO ADM SS Glucose [Mass/Vol] 140 mg/dL Invalid Interpretation Code 83 - 110 mg/dL AO ADM SS Potassium [Moles/Vol] 4.7 mmol/L Invalid Interpretation Code 3.5 - 5.1 mmol/L AO ADM SS Protein [Mass/Vol] 6.8 G/dL Invalid Interpretation Code 6.4 - 8.2 G/dL AO ADM SS Sodium [Moles/Vol] 141 mmol/L Invalid Interpretation Code 136 - 145 mmol/L AO ADM SS TSH Qn 2.03 m[IU]/L Invalid Interpretation Code 0.36 - 3.74 mcIU/mL AO ADM SS Urea nitrogen [Mass/Vol] 24 mg/dL Invalid Interpretation Code 7 - 18 mg/dL AO ADM SS Urea nitrogen/Creatinine [Mass ratio] 19 ratio Invalid Interpretation Code 7 - 27 ratio AO ADM SS LABORATORYOrdered By: SYSTEM SYSTEM on 05-15-2021 GFR 48 ml/min/1.73sqm Invalid Interpretation Code AO Chemistry S GFR Non- 39 ml/min/1.73sqm Invalid Interpretation Code AO Chemistry S Basic Metabolic Panelon 10 Anion gap 3 molar conc 5 Normal [facility] Comment on above: Performed By: #### A BG ####[address] [place] [address] Calcium mass conc 8.7 mg/dL Normal 8.4-10.4 [facility] Comment on above: Performed By: #### A BG ####[address] [place], [place] CO2 molar conc 33 mmol/L High 22-30 [facility] Comment on above: Performed By: #### A BG ####[address] [place], [place] Glucose mass conc 112 mg/dL High 70-100 [facility] Comment on above: Performed By: #### A BG ####[address] [place], [place] Urea nitrogen mass conc 20 mg/dL Normal 7-20 [facility] Comment on above: Performed By: #### A BG ####[address] [place], [place] Creatinine mass conc 0.89 mg/dL Normal 0.52-1.25 [facility] Comment on above: Performed By: #### A BG ####[address] [place], [place] GFR/1.73 sq M predicted among blacks MDRD vol rate/area (S/P/Bld) mL/min/{1.73_m2} Normal >60 [facility] Comment on above: Performed By: #### A BG ####[address] [place], [place] GFR/1.73 sq M predicted among non-blacks MDRD vol rate/area (S/P/Bld) mL/min/{1.73_m2} Normal >60 [facility] Comment on above: Result Comment: Sour ce- MDRD equation with creatinine calibration to IDMS(NKDEP) eGFR not recommended for drug dose adjustment Performed By: #### A BG ####[address] [place] [address] Chloride molar conc 102 mmol/L Normal 98-107 [facility] Comment on above: Performed By: #### A BG ####[address] [place] [address] Potassium molar conc 3.9 mmol/L Normal 3.5-5.1 [facility] Comment on above: Performed By: #### A BG ####[address] [place] [address] Sodium molar conc 140 mmol/L Normal 137-145 [facility] Comment on above: Performed By: #### A BG ####[address] [place] [address] Glucose,Bedsideon 11-20-2017 Glucose mass conc 103 mg/dL High 70-100 [facility] Comment on above: Result Comment: Test performed by glucose meter. Results may be 10%-15% lowerthan serum/plasma values. (CLIA ID [id number]) Performed By: #### A BG ####[facility] [id number] [place] [address] Glucose,Bedsideon 11-19-2017 Glucose mass conc 118 mg/dL High 70-100 [facility] Comment on above: Result Comment: Test performed by glucose meter. Results may be 10%-15% lowerthan serum/plasma values. (CLIA ID [id number]) Performed By: #### H EMDF, APTT, PT, BMP3M, MG3, PHOS3, LFT3, CKMBS, LACT3, TROPN, MBF33, DIG3, HA1C2, PCAL ####[facility] [id number] [place] [address] Glucose mass conc 100 mg/dL Normal 70-100 [facility] Comment on above: Result Comment: Test performed by glucose meter. Results may be 10%-15% lowerthan serum/plasma values. (CLIA ID [id number]) Performed By: #### H EMDF, APTT, PT, BMP3M, MG3, PHOS3, LFT3, CKMBS, LACT3, TROPN, MBF33, DIG3, HA1C2, PCAL ####[address] Basic Metabolic Panelon 11-08 Calcium mass conc 9.1 mg/dL Normal 8.4-10.4 [facility] Comment on above: Performed By: #### H EMDF, APTT, PT, BMP3M, MG3, PHOS3, LFT3, CKMBS, LACT3, TROPN, MBF33, DIG3, HA1C2, PCAL ####[address] Glucose mass conc 112 mg/dL High 70-100 [facility] Comment on above: Performed By: #### H EMDF, APTT, PT, BMP3M, MG3, PHOS3, LFT3, CKMBS, LACT3, TROPN, MBF33, DIG3, HA1C2, PCAL ####[address] Anion gap 3 molar conc 6 Normal [facility] Comment on above: Performed By: #### H EMDF, APTT, PT, BMP3M, MG3, PHOS3, LFT3, CKMBS, LACT3, TROPN, MBF33, DIG3, HA1C2, PCAL ####[address] CO2 molar conc 27 mmol/L Normal 22-30 [facility] Comment on above: Performed By: #### H EMDF, APTT, PT, BMP3M, MG3, PHOS3, LFT3, CKMBS, LACT3, TROPN, MBF33, DIG3, HA1C2, PCAL ####[address] Creatinine mass conc 0.75 mg/dL Normal 0.52-1.25 [facility] Comment on above: Performed By: #### H EMDF, APTT, PT, BMP3M, MG3, PHOS3, LFT3, CKMBS, LACT3, TROPN, MBF33, DIG3, HA1C2, PCAL ####[address] [place] [address] GFR/1.73 sq M predicted among blacks MDRD vol rate/area (S/P/Bld) mL/min/{1.73_m2} Normal >60 [facility] Comment on above: Performed By: #### H EMDF, APTT, PT, BMP3M, MG3, PHOS3, LFT3, CKMBS, LACT3, TROPN, MBF33, DIG3, HA1C2, PCAL ####[address] [address] GFR/1.73 sq M predicted among non-blacks MDRD vol rate/area (S/P/Bld) mL/min/{1.73_m2} Normal >60 [facility] Comment on above: Result Comment: Sour ce- MDRD equation with creatinine calibration to IDMS(NKDEP) eGFR not recommended for drug dose adjustment Performed By: #### H EMDF, APTT, PT, BMP3M, MG3, PHOS3, LFT3, CKMBS, LACT3, TROPN, MBF33, DIG3, HA1C2, PCAL ####[address] [address] Urea nitrogen mass conc 13 mg/dL Normal 7-20 [facility] Comment on above: Performed By: #### H EMDF, APTT, PT, BMP3M, MG3, PHOS3, LFT3, CKMBS, LACT3, TROPN, MBF33, DIG3, HA1C2, PCAL ####[facility] [id number] [place] [address] Potassium molar conc 4.8 mmol/L Normal 3.5-5.1 [facility] Comment on above: Performed By: #### H EMDF, APTT, PT, BMP3M, MG3, PHOS3, LFT3, CKMBS, LACT3, TROPN, MBF33, DIG3, HA1C2, PCAL ####[address] [place] [address] Sodium molar conc 140 mmol/L Normal 137-145 [facility] Comment on above: Performed By: #### H EMDF, APTT, PT, BMP3M, MG3, PHOS3, LFT3, CKMBS, LACT3, TROPN, MBF33, DIG3, HA1C2, PCAL ####[facility] [place] [address] Chloride molar conc 106 mmol/L Normal 98-107 [facility] Comment on above: Performed By: #### H EMDF, APTT, PT, BMP3M, MG3, PHOS3, LFT3, CKMBS, LACT3, TROPN, MBF33, DIG3, HA1C2, PCAL ####[facility] [place] [address] CR Chest Portableon 11-19-19 CR Chest Portable Patient Name: GONZALO LEI Diagnostic Radiology Exam Date/Time 11/18/2017 06:32:09 EDT Exam CR Chest Portable Ordering Physician IVANA REED JUDITH A. Accession Number [id number] CPT4 Codes 50996 () Reason For Exam respiratory failure Report CLINICAL INFORMATION: Respiratory failure. CHEST X-RAY, PORTABLE, 0620: An AP portable view is compared to the prior examination of the previous day. The patient exhibits a limited inspiratory volume. The examination is somewhat lordotic in projection. 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 There is elevation the right hemidiaphragm. There is no gross abnormality of the mediastinum or cardiac silhouette. Basilar atelectasis is similar mild pulmonary vascular congestion or prominence is also unchanged. No other acute process or interval changes. Report Dictated on Final Dictated: 11/18/2017 8:29 am Dictating Physician: MD RIVERA HARLAN Signed Date and Time: 11/18/2017 8:30 am Signed by: MD RIVERA HARLAN Transcribed Date and Time: 11/18/2017 8:29 Normal [facility] Calcium,Ionizedon 10-11-2018 Ionized Ca,Measured 4.10 mg/dL Low 4.30-5.20 [facility] Comment on above: Performed By: #### H EMDF, APTT, PT, BMP3M, MG3, PHOS3, LFT3, CKMBS, LACT3, TROPN, MBF33, DIG3, HA1C2, PCAL ####[address] [place], [place] pH, Ionized Calcium 7.47 High 7.31-7.46 [facility] Comment on above: Performed By: #### H EMDF, APTT, PT, BMP3M, MG3, PHOS3, LFT3, CKMBS, LACT3, TROPN, MBF33, DIG3, HA1C2, PCAL ####[address] Glucose,Bedsideon 11-18-2017 Glucose mass conc 110 mg/dL High 70-100 [facility] Comment on above: Result Comment: Test performed by glucose meter. Results may be 10%-15% lowerthan serum/plasma values. (CLIA ID [id number]) Performed By: #### H EMDF, APTT, PT, BMP3M, MG3, PHOS3, LFT3, CKMBS, LACT3, TROPN, MBF33, DIG3, HA1C2, PCAL ####[address] Hemogram w/ Autodiffon 11-18 Abs Baso Cnt 0.1 10*3/uL Normal 0.0-0.2 [facility] Comment on above: Performed By: #### H EMDF, APTT, PT, BMP3M, MG3, PHOS3, LFT3, CKMBS, LACT3, TROPN, MBF33, DIG3, HA1C2, PCAL ####[address] Abs Neutrophile Cnt 5.4 10*3/uL Normal 1.8-7.0 [facility] Comment on above: Performed By: #### H EMDF, APTT, PT, BMP3M, MG3, PHOS3, LFT3, CKMBS, LACT3, TROPN, MBF33, DIG3, HA1C2, PCAL ####[address] [address] Basophils/100 WBC Auto (Bld) 1.0 % Normal 0.0-2.0 [facility] Comment on above: Performed By: #### H EMDF, APTT, PT, BMP3M, MG3, PHOS3, LFT3, CKMBS, LACT3, TROPN, MBF33, DIG3, HA1C2, PCAL ####[address] Eosinophils Auto #/vol (Bld) 0.2 10*3/uL Normal 0.0-0.5 [facility] Comment on above: Performed By: #### H EMDF, APTT, PT, BMP3M, MG3, PHOS3, LFT3, CKMBS, LACT3, TROPN, MBF33, DIG3, HA1C2, PCAL ####[address] Eosinophils/100 WBC Auto (Bld) 2.4 % Normal 1.0-6.0 [facility] Comment on above: Performed By: #### H EMDF, APTT, PT, BMP3M, MG3, PHOS3, LFT3, CKMBS, LACT3, TROPN, MBF33, DIG3, HA1C2, PCAL ####[address] Erythrocyte distribution width Auto Ratio (RBC) 18.5 % High 11.5-14.5 [facility] Comment on above: Performed By: #### H EMDF, APTT, PT, BMP3M, MG3, PHOS3, LFT3, CKMBS, LACT3, TROPN, MBF33, DIG3, HA1C2, PCAL ####[address] Granulocytes/100 WBC (Bld) 74.1 % Normal 40.0-80.0 [facility] Comment on above: Performed By: #### H EMDF, APTT, PT, BMP3M, MG3, PHOS3, LFT3, CKMBS, LACT3, TROPN, MBF33, DIG3, HA1C2, PCAL ####[address] Hematocrit Auto Volume Fraction (Bld) 41.3 % Normal 35.0-47.0 [facility] Comment on above: Performed By: #### H EMDF, APTT, PT, BMP3M, MG3, PHOS3, LFT3, CKMBS, LACT3, TROPN, MBF33, DIG3, HA1C2, PCAL ####[address] Hemoglobin mass conc (Bld) 13.5 g/dL Normal 11.7-16.0 [facility] Comment on above: Performed By: #### H EMDF, APTT, PT, BMP3M, MG3, PHOS3, LFT3, CKMBS, LACT3, TROPN, MBF33, DIG3, HA1C2, PCAL ####[address] Lymphocytes Auto #/vol (Bld) 0.9 10*3/uL Low 1.0-4.3 [facility] Comment on above: Performed By: #### H EMDF, APTT, PT, BMP3M, MG3, PHOS3, LFT3, CKMBS, LACT3, TROPN, MBF33, DIG3, HA1C2, PCAL ####[address] Lymphocytes/100 WBC Auto (Bld) 13.0 % Low 20.0-40.0 [facility] Comment on above: Performed By: #### H EMDF, APTT, PT, BMP3M, MG3, PHOS3, LFT3, CKMBS, LACT3, TROPN, MBF33, DIG3, HA1C2, PCAL ####[address] MCH Auto Entitic mass (RBC) 29.2 pg Normal 26.0-34.0 [facility] Comment on above: Performed By: #### H EMDF, APTT, PT, BMP3M, MG3, PHOS3, LFT3, CKMBS, LACT3, TROPN, MBF33, DIG3, HA1C2, PCAL ####[address] [place], [place] MCHC Auto mass conc (RBC) 32.7 % Normal 32.0-36.0 [facility] Comment on above: Performed By: #### H EMDF, APTT, PT, BMP3M, MG3, PHOS3, LFT3, CKMBS, LACT3, TROPN, MBF33, DIG3, HA1C2, PCAL ####[address] [place], [place] MCV Auto Entitic volume (RBC) 89.2 fL Normal 79.0-98.0 [facility] Comment on above: Performed By: #### H EMDF, APTT, PT, BMP3M, MG3, PHOS3, LFT3, CKMBS, LACT3, TROPN, MBF33, DIG3, HA1C2, PCAL ####[address] Monocytes Auto #/vol (Bld) 0.7 10*3/uL Normal 0.0-0.8 [facility] Comment on above: Performed By: #### H EMDF, APTT, PT, BMP3M, MG3, PHOS3, LFT3, CKMBS, LACT3, TROPN, MBF33, DIG3, HA1C2, PCAL ####[address] Monocytes/100 WBC Auto (Bld) 9.5 % Normal 2.0-10.0 [facility] Comment on above: Performed By: #### H EMDF, APTT, PT, BMP3M, MG3, PHOS3, LFT3, CKMBS, LACT3, TROPN, MBF33, DIG3, HA1C2, PCAL ####[id number] [place], [place] Platelet mean volume Auto Entitic volume (Bld) 10.2 fL Normal 7.4-10.4 [facility] Comment on above: Performed By: #### H EMDF, APTT, PT, BMP3M, MG3, PHOS3, LFT3, CKMBS, LACT3, TROPN, MBF33, DIG3, HA1C2, PCAL ####[address] Platelets Auto #/vol (Bld) 187 10*3/uL Normal 140-440 [facility] Comment on above: Performed By: #### H EMDF, APTT, PT, BMP3M, MG3, PHOS3, LFT3, CKMBS, LACT3, TROPN, MBF33, DIG3, HA1C2, PCAL ####[address] RBC Auto #/vol (Bld) 4.63 10*6/uL Normal 3.80-5.20 [facility] Comment on above: Performed By: #### H EMDF, APTT, PT, BMP3M, MG3, PHOS3, LFT3, CKMBS, LACT3, TROPN, MBF33, DIG3, HA1C2, PCAL ####[address] WBC Auto #/vol (Bld) 7.3 10*3/uL Normal 3.6-10.7 [facility] Comment on above: Performed By: #### H EMDF, APTT, PT, BMP3M, MG3, PHOS3, LFT3, CKMBS, LACT3, TROPN, MBF33, DIG3, HA1C2, PCAL ####[address] Hepatic Functionon 8 ALP enzyme act/vol 60 U/L Normal 38-126 [facility] Comment on above: Performed By: #### H EMDF, APTT, PT, BMP3M, MG3, PHOS3, LFT3, CKMBS, LACT3, TROPN, MBF33, DIG3, HA1C2, PCAL ####[address] ALT enzyme act/vol 26 U/L Normal 13-69 [facility] Comment on above: Performed By: #### H EMDF, APTT, PT, BMP3M, MG3, PHOS3, LFT3, CKMBS, LACT3, TROPN, MBF33, DIG3, HA1C2, PCAL ####[address] AST enzyme act/vol 34 U/L Normal 15-46 [facility] Comment on above: Performed By: #### H EMDF, APTT, PT, BMP3M, MG3, PHOS3, LFT3, CKMBS, LACT3, TROPN, MBF33, DIG3, HA1C2, PCAL ####[address] Bilirubin mass conc 0.5 mg/dL Normal 0.2-1.3 [facility] Comment on above: Performed By: #### H EMDF, APTT, PT, BMP3M, MG3, PHOS3, LFT3, CKMBS, LACT3, TROPN, MBF33, DIG3, HA1C2, PCAL ####[address] Bilirubin.direct mass conc 0.0 mg/dL Normal 0.0-0.3 [facility] Comment on above: Performed By: #### H EMDF, APTT, PT, BMP3M, MG3, PHOS3, LFT3, CKMBS, LACT3, TROPN, MBF33, DIG3, HA1C2, PCAL ####[address] Protein mass conc 6.7 g/dL Normal 6.3-8.2 [facility] Comment on above: Performed By: #### H EMDF, APTT, PT, BMP3M, MG3, PHOS3, LFT3, CKMBS, LACT3, TROPN, MBF33, DIG3, HA1C2, PCAL ####[id number] [place], [place] Albumin mass conc 4.0 g/dL Normal 3.5-5.0 [facility] Comment on above: Performed By: #### H EMDF, APTT, PT, BMP3M, MG3, PHOS3, LFT3, CKMBS, LACT3, TROPN, MBF33, DIG3, HA1C2, PCAL ####[address] [place], [place] Magnesiumon 11-18-2017 Magnesium mass conc 2.1 mg/dL Normal 1.6-2.3 [facility] Comment on above: Performed By: #### H EMDF, APTT, PT, BMP3M, MG3, PHOS3, LFT3, CKMBS, LACT3, TROPN, MBF33, DIG3, HA1C2, PCAL ####[address] Phosphoruson 11-18-2017 Phosphate mass conc 2.9 mg/dL Normal 2.5-4.5 [facility] Comment on above: Performed By: #### H EMDF, APTT, PT, BMP3M, MG3, PHOS3, LFT3, CKMBS, LACT3, TROPN, MBF33, DIG3, HA1C2, PCAL ####[address] Basic Metabolic Panelon 11-08 Anion gap 3 molar conc 5 Normal [facility] Comment on above: Performed By: #### H EMDF, APTT, PT, BMP3M, MG3, PHOS3, LFT3, CKMBS, LACT3, TROPN, MBF33, DIG3, HA1C2, PCAL ####[id number] [place], [place] Calcium mass conc 8.1 mg/dL Low 8.4-10.4 [facility] Comment on above: Performed By: #### H EMDF, APTT, PT, BMP3M, MG3, PHOS3, LFT3, CKMBS, LACT3, TROPN, MBF33, DIG3, HA1C2, PCAL ####[address] CO2 molar conc 27 mmol/L Normal 22-30 [facility] Comment on above: Performed By: #### H EMDF, APTT, PT, BMP3M, MG3, PHOS3, LFT3, CKMBS, LACT3, TROPN, MBF33, DIG3, HA1C2, PCAL ####[address] Glucose mass conc 86 mg/dL Normal 70-100 [facility] Comment on above: Performed By: #### H EMDF, APTT, PT, BMP3M, MG3, PHOS3, LFT3, CKMBS, LACT3, TROPN, MBF33, DIG3, HA1C2, PCAL ####[address] Urea nitrogen mass conc 13 mg/dL Normal 7-20 [facility] Comment on above: Performed By: #### H EMDF, APTT, PT, BMP3M, MG3, PHOS3, LFT3, CKMBS, LACT3, TROPN, MBF33, DIG3, HA1C2, PCAL ####[address] Creatinine mass conc 0.69 mg/dL Normal 0.52-1.25 [facility] Comment on above: Performed By: #### H EMDF, APTT, PT, BMP3M, MG3, PHOS3, LFT3, CKMBS, LACT3, TROPN, MBF33, DIG3, HA1C2, PCAL ####[address] GFR/1.73 sq M predicted among blacks MDRD vol rate/area (S/P/Bld) mL/min/{1.73_m2} Normal >60 [facility] Comment on above: Performed By: #### H EMDF, APTT, PT, BMP3M, MG3, PHOS3, LFT3, CKMBS, LACT3, TROPN, MBF33, DIG3, HA1C2, PCAL ####[address] GFR/1.73 sq M predicted among non-blacks MDRD vol rate/area (S/P/Bld) mL/min/{1.73_m2} Normal >60 [facility] Comment on above: Result Comment: Sour ce- MDRD equation with creatinine calibration to IDMS(NKDEP) eGFR not recommended for drug dose adjustment Performed By: #### H EMDF, APTT, PT, BMP3M, MG3, PHOS3, LFT3, CKMBS, LACT3, TROPN, MBF33, DIG3, HA1C2, PCAL ####[address] Potassium molar conc 3.5 mmol/L Normal 3.5-5.1 [facility] Comment on above: Performed By: #### H EMDF, APTT, PT, BMP3M, MG3, PHOS3, LFT3, CKMBS, LACT3, TROPN, MBF33, DIG3, HA1C2, PCAL ####[address] Chloride molar conc 109 mmol/L High 98-107 [facility] Comment on above: Performed By: #### H EMDF, APTT, PT, BMP3M, MG3, PHOS3, LFT3, CKMBS, LACT3, TROPN, MBF33, DIG3, HA1C2, PCAL ####[address] Sodium molar conc 142 mmol/L Normal 137-145 [facility] Comment on above: Performed By: #### H EMDF, APTT, PT, BMP3M, MG3, PHOS3, LFT3, CKMBS, LACT3, TROPN, MBF33, DIG3, HA1C2, PCAL ####[address] [address] CR Chest Portableon 11-18-19 18 CR Chest Portable Patient Name: GONZALO LEI Diagnostic Radiology Exam Date/Time 11/17/2017 05:54:26 EDT Exam CR Chest Portable Ordering Physician IVANA REED JUDITH A. Accession Number [id number] CPT4 Codes 46708 () Reason For Exam respiratory failure Report Portable chest 11/17/2017: Clinical Information: Respiratory failure. Findings: A single AP portable view of the chest was obtained at 552 hours. Comparison was made to the prior study prior day. There is platelike atelectasis in both lung bases. There may be a mild degree of pulmonary vascular congestion but no overt pulmonary edema or consolidation is identified. Report Dictated on Workstation: [facility] Final Dictated: 11/17/2017 6:51 am Dictating Physician: MD HEADLEY RISA Signed Date and Time: 11/17/2017 7:03 am Signed by: MD HEADLEY RISA Transcribed Date and Time: 11/17/2017 6:51 Normal [facility] Calcium,Ionizedon 11-17-2017 Ionized Ca,Measured 4.30 mg/dL Normal 4.30-5.20 [facility] Comment on above: Performed By: #### H EMDF, APTT, PT, BMP3M, MG3, PHOS3, LFT3, CKMBS, LACT3, TROPN, MBF33, DIG3, HA1C2, PCAL ####[facility] [address] [place] [address] pH, Ionized Calcium 7.35 Normal 7.31-7.46 [facility] Comment on above: Performed By: #### H EMDF, APTT, PT, BMP3M, MG3, PHOS3, LFT3, CKMBS, LACT3, TROPN, MBF33, DIG3, HA1C2, PCAL ####[facility] [place] [address] Glucose,Bedsideon 11-17-2017 Glucose mass conc 125 mg/dL High 70-100 [facility] Comment on above: Result Comment: Test performed by glucose meter. Results may be 10%-15% lowerthan serum/plasma values. (CLIA ID [id number]) Performed By: #### H EMDF, APTT, PT, BMP3M, MG3, PHOS3, LFT3, CKMBS, LACT3, TROPN, MBF33, DIG3, HA1C2, PCAL ####[id number] [employer], [place] Glucose mass conc 107 mg/dL High 70-100 [facility] Comment on above: Result Comment: Test performed by glucose meter. Results may be 10%-15% lowerthan serum/plasma values. (CLIA ID [id number]) Performed By: #### H EMDF, APTT, PT, BMP3M, MG3, PHOS3, LFT3, CKMBS, LACT3, TROPN, MBF33, DIG3, HA1C2, PCAL ####[id number] [place] [address] Glucose mass conc 88 mg/dL Normal 70-100 [facility] Comment on above: Result Comment: Test performed by glucose meter. Results may be 10%-15% lowerthan serum/plasma values. (CLIA ID [id number]) Performed By: #### H EMDF, APTT, PT, BMP3M, MG3, PHOS3, LFT3, CKMBS, LACT3, TROPN, MBF33, DIG3, HA1C2, PCAL ####[id number] [place] [address] Glucose mass conc 96 mg/dL Normal 70-100 [facility] Comment on above: Result Comment: Test performed by glucose meter. Results may be 10%-15% lowerthan serum/plasma values. (CLIA ID [id number]) Performed By: #### H EMDF, APTT, PT, BMP3M, MG3, PHOS3, LFT3, CKMBS, LACT3, TROPN, MBF33, DIG3, HA1C2, PCAL ####[id number] [employer] [place], [place] Hemogram w/ Autodiffon 11-17 Abs Baso Cnt 0.1 10*3/uL Normal 0.0-0.2 [facility] Comment on above: Performed By: #### H EMDF, APTT, PT, BMP3M, MG3, PHOS3, LFT3, CKMBS, LACT3, TROPN, MBF33, DIG3, HA1C2, PCAL ####[id number] [place], [place] Abs Neutrophile Cnt 3.7 10*3/uL Normal 1.8-7.0 [facility] Comment on above: Performed By: #### H EMDF, APTT, PT, BMP3M, MG3, PHOS3, LFT3, CKMBS, LACT3, TROPN, MBF33, DIG3, HA1C2, PCAL ####[address] Basophils/100 WBC Auto (Bld) 1.0 % Normal 0.0-2.0 [facility] Comment on above: Performed By: #### H EMDF, APTT, PT, BMP3M, MG3, PHOS3, LFT3, CKMBS, LACT3, TROPN, MBF33, DIG3, HA1C2, PCAL ####[address] Eosinophils Auto #/vol (Bld) 0.1 10*3/uL Normal 0.0-0.5 [facility] Comment on above: Performed By: #### H EMDF, APTT, PT, BMP3M, MG3, PHOS3, LFT3, CKMBS, LACT3, TROPN, MBF33, DIG3, HA1C2, PCAL ####[address] Eosinophils/100 WBC Auto (Bld) 2.0 % Normal 1.0-6.0 [facility] Comment on above: Performed By: #### H EMDF, APTT, PT, BMP3M, MG3, PHOS3, LFT3, CKMBS, LACT3, TROPN, MBF33, DIG3, HA1C2, PCAL ####[address] Erythrocyte distribution width Auto Ratio (RBC) 17.6 % High 11.5-14.5 [facility] Comment on above: Performed By: #### H EMDF, APTT, PT, BMP3M, MG3, PHOS3, LFT3, CKMBS, LACT3, TROPN, MBF33, DIG3, HA1C2, PCAL ####[address] Granulocytes/100 WBC (Bld) 70.0 % Normal 40.0-80.0 [facility] Comment on above: Performed By: #### H EMDF, APTT, PT, BMP3M, MG3, PHOS3, LFT3, CKMBS, LACT3, TROPN, MBF33, DIG3, HA1C2, PCAL ####[address] Hematocrit Auto Volume Fraction (Bld) 33.3 % Low 35.0-47.0 [facility] Comment on above: Performed By: #### H EMDF, APTT, PT, BMP3M, MG3, PHOS3, LFT3, CKMBS, LACT3, TROPN, MBF33, DIG3, HA1C2, PCAL ####[address] Hemoglobin mass conc (Bld) 10.9 g/dL Low 11.7-16.0 [facility] Comment on above: Performed By: #### H EMDF, APTT, PT, BMP3M, MG3, PHOS3, LFT3, CKMBS, LACT3, TROPN, MBF33, DIG3, HA1C2, PCAL ####[address] Lymphocytes Auto #/vol (Bld) 0.9 10*3/uL Low 1.0-4.3 [facility] Comment on above: Performed By: #### H EMDF, APTT, PT, BMP3M, MG3, PHOS3, LFT3, CKMBS, LACT3, TROPN, MBF33, DIG3, HA1C2, PCAL ####[address] Lymphocytes/100 WBC Auto (Bld) 16.7 % Low 20.0-40.0 [facility] Comment on above: Performed By: #### H EMDF, APTT, PT, BMP3M, MG3, PHOS3, LFT3, CKMBS, LACT3, TROPN, MBF33, DIG3, HA1C2, PCAL ####[address] MCH Auto Entitic mass (RBC) 29.4 pg Normal 26.0-34.0 [facility] Comment on above: Performed By: #### H EMDF, APTT, PT, BMP3M, MG3, PHOS3, LFT3, CKMBS, LACT3, TROPN, MBF33, DIG3, HA1C2, PCAL ####[address] MCHC Auto mass conc (RBC) 32.9 % Normal 32.0-36.0 [facility] Comment on above: Performed By: #### H EMDF, APTT, PT, BMP3M, MG3, PHOS3, LFT3, CKMBS, LACT3, TROPN, MBF33, DIG3, HA1C2, PCAL ####[address] MCV Auto Entitic volume (RBC) 89.5 fL Normal 79.0-98.0 [facility] Comment on above: Performed By: #### H EMDF, APTT, PT, BMP3M, MG3, PHOS3, LFT3, CKMBS, LACT3, TROPN, MBF33, DIG3, HA1C2, PCAL ####[address] Monocytes Auto #/vol (Bld) 0.5 10*3/uL Normal 0.0-0.8 [facility] Comment on above: Performed By: #### H EMDF, APTT, PT, BMP3M, MG3, PHOS3, LFT3, CKMBS, LACT3, TROPN, MBF33, DIG3, HA1C2, PCAL ####[address] Monocytes/100 WBC Auto (Bld) 10.3 % High 2.0-10.0 [facility] Comment on above: Performed By: #### H EMDF, APTT, PT, BMP3M, MG3, PHOS3, LFT3, CKMBS, LACT3, TROPN, MBF33, DIG3, HA1C2, PCAL ####[address] Platelet mean volume Auto Entitic volume (Bld) 10.4 fL Normal 7.4-10.4 [facility] Comment on above: Performed By: #### H EMDF, APTT, PT, BMP3M, MG3, PHOS3, LFT3, CKMBS, LACT3, TROPN, MBF33, DIG3, HA1C2, PCAL ####[address] Platelets Auto #/vol (Bld) 143 10*3/uL Normal 140-440 [facility] Comment on above: Performed By: #### H EMDF, APTT, PT, BMP3M, MG3, PHOS3, LFT3, CKMBS, LACT3, TROPN, MBF33, DIG3, HA1C2, PCAL ####[address] RBC Auto #/vol (Bld) 3.72 10*6/uL Low 3.80-5.20 [facility] Comment on above: Performed By: #### H EMDF, APTT, PT, BMP3M, MG3, PHOS3, LFT3, CKMBS, LACT3, TROPN, MBF33, DIG3, HA1C2, PCAL ####[address] WBC Auto #/vol (Bld) 5.2 10*3/uL Normal 3.6-10.7 [facility] Comment on above: Performed By: #### H EMDF, APTT, PT, BMP3M, MG3, PHOS3, LFT3, CKMBS, LACT3, TROPN, MBF33, DIG3, HA1C2, PCAL ####[address] [place], [place] Hepatic Functionon 8 ALP enzyme act/vol 45 U/L Normal 38-126 [facility] Comment on above: Performed By: #### H EMDF, APTT, PT, BMP3M, MG3, PHOS3, LFT3, CKMBS, LACT3, TROPN, MBF33, DIG3, HA1C2, PCAL ####[address] [place], [place] ALT enzyme act/vol 30 U/L Normal 13-69 [facility] Comment on above: Performed By: #### H EMDF, APTT, PT, BMP3M, MG3, PHOS3, LFT3, CKMBS, LACT3, TROPN, MBF33, DIG3, HA1C2, PCAL ####[address] [place], [place] AST enzyme act/vol 19 U/L Normal 15-46 [facility] Comment on above: Performed By: #### H EMDF, APTT, PT, BMP3M, MG3, PHOS3, LFT3, CKMBS, LACT3, TROPN, MBF33, DIG3, HA1C2, PCAL ####[address] [place], [place] Bilirubin mass conc 0.6 mg/dL Normal 0.2-1.3 [facility] Comment on above: Performed By: #### H EMDF, APTT, PT, BMP3M, MG3, PHOS3, LFT3, CKMBS, LACT3, TROPN, MBF33, DIG3, HA1C2, PCAL ####[address] [place], [place] Bilirubin.direct mass conc 0.0 mg/dL Normal 0.0-0.3 [facility] Comment on above: Performed By: #### H EMDF, APTT, PT, BMP3M, MG3, PHOS3, LFT3, CKMBS, LACT3, TROPN, MBF33, DIG3, HA1C2, PCAL ####[address] [place] [address] Protein mass conc 5.6 g/dL Low 6.3-8.2 [facility] Comment on above: Performed By: #### H EMDF, APTT, PT, BMP3M, MG3, PHOS3, LFT3, CKMBS, LACT3, TROPN, MBF33, DIG3, HA1C2, PCAL ####[address] [address] Albumin mass conc 3.2 g/dL Low 3.5-5.0 [facility] Comment on above: Performed By: #### H EMDF, APTT, PT, BMP3M, MG3, PHOS3, LFT3, CKMBS, LACT3, TROPN, MBF33, DIG3, HA1C2, PCAL ####[facility] [address] [address] Magnesiumon 11-17-2017 Magnesium mass conc 1.8 mg/dL Normal 1.6-2.3 [facility] Comment on above: Performed By: #### H EMDF, APTT, PT, BMP3M, MG3, PHOS3, LFT3, CKMBS, LACT3, TROPN, MBF33, DIG3, HA1C2, PCAL ####[address] [place] [address] Phosphoruson 11-17-2017 Phosphate mass conc 3.3 mg/dL Normal 2.5-4.5 [facility] Comment on above: Performed By: #### H EMDF, APTT, PT, BMP3M, MG3, PHOS3, LFT3, CKMBS, LACT3, TROPN, MBF33, DIG3, HA1C2, PCAL ####[address] [place] [address] RF Swallowing Function w/ Vi deoon 11-17-2017 RF Swallowing Function w/ Video Patient Name: GONZALO LEI Fluoroscopy Exam Date/Time 11/17/2017 09:21:21 EDT Exam RF Swallowing Function w/ Video Ordering Physician IVANA REED JUDITH A. Accession Number [id number] [facility]4 Codes 20702 () Reason For Exam concern for silent aspiration Report MODIFIED BARIUM SWALLOW (COOKIE SWALLOW) CLINICAL INDICATION: Dysphagia. Concern for aspiration. COMPARISON: None. FLUOROSCOPY TIME: 0.9 minutes. 11 fluoroscopic loop runs were obtained. TECHNIQUE: The procedure was performed in conjunction with speech therapy. Barium mixtures of various consistencies were given under fluoroscopy with the patient in the sitting lateral position. FINDINGS: Preparatory phase, oral phase, and pharyngeal phases are all unremarkable. There is no laryngeal penetration or airway aspiration. IMPRESSION: No laryngeal penetration or airway aspiration. Unremarkable cookie swallow. Please refer to the speech pathologist's report for additional comments and recommendations. Report Dictated on Final Dictated: 11/17/2017 10:48 am Dictating Physician: DO HARRIS ALFRED Signed Date and Time: 11/17/2017 3:15 pm Signed by: DO HARRIS ALFRED Transcribed Date and Time: 11/17/2017 10:49 Normal [facility] Basic Metabolic Panelon 10-0 Calcium mass conc 8.7 mg/dL Normal 8.4-10.4 [facility] Comment on above: Performed By: #### H EMDF, APTT, PT, BMP3M, MG3, PHOS3, LFT3, CKMBS, LACT3, TROPN, MBF33, DIG3, HA1C2, PCAL ####[facility] [place] [address] Anion gap 3 molar conc 8 Normal [facility] Comment on above: Performed By: #### H EMDF, APTT, PT, BMP3M, MG3, PHOS3, LFT3, CKMBS, LACT3, TROPN, MBF33, DIG3, HA1C2, PCAL ####[address] [place], [place] CO2 molar conc 28 mmol/L Normal 22-30 [facility] Comment on above: Performed By: #### H EMDF, APTT, PT, BMP3M, MG3, PHOS3, LFT3, CKMBS, LACT3, TROPN, MBF33, DIG3, HA1C2, PCAL ####[address] [place], [place] Creatinine mass conc 0.86 mg/dL Normal 0.52-1.25 [facility] Comment on above: Performed By: #### H EMDF, APTT, PT, BMP3M, MG3, PHOS3, LFT3, CKMBS, LACT3, TROPN, MBF33, DIG3, HA1C2, PCAL ####[address] GFR/1.73 sq M predicted among blacks MDRD vol rate/area (S/P/Bld) mL/min/{1.73_m2} Normal >60 [facility] Comment on above: Performed By: #### H EMDF, APTT, PT, BMP3M, MG3, PHOS3, LFT3, CKMBS, LACT3, TROPN, MBF33, DIG3, HA1C2, PCAL ####[address] GFR/1.73 sq M predicted among non-blacks MDRD vol rate/area (S/P/Bld) mL/min/{1.73_m2} Normal >60 [facility] Comment on above: Result Comment: Sour ce- MDRD equation with creatinine calibration to IDMS(NKDEP) eGFR not recommended for drug dose adjustment Performed By: #### H EMDF, APTT, PT, BMP3M, MG3, PHOS3, LFT3, CKMBS, LACT3, TROPN, MBF33, DIG3, HA1C2, PCAL ####[address] [place], [place] Glucose mass conc 99 mg/dL Normal 70-100 [facility] Comment on above: Performed By: #### H EMDF, APTT, PT, BMP3M, MG3, PHOS3, LFT3, CKMBS, LACT3, TROPN, MBF33, DIG3, HA1C2, PCAL ####[address] [place], [place] Urea nitrogen mass conc 13 mg/dL Normal 7-20 [facility] Comment on above: Performed By: #### H EMDF, APTT, PT, BMP3M, MG3, PHOS3, LFT3, CKMBS, LACT3, TROPN, MBF33, DIG3, HA1C2, PCAL ####[address] [place], [place] Potassium molar conc 3.8 mmol/L Normal 3.5-5.1 [facility] Comment on above: Performed By: #### H EMDF, APTT, PT, BMP3M, MG3, PHOS3, LFT3, CKMBS, LACT3, TROPN, MBF33, DIG3, HA1C2, PCAL ####[address] Sodium molar conc 141 mmol/L Normal 137-145 [facility] Comment on above: Performed By: #### H EMDF, APTT, PT, BMP3M, MG3, PHOS3, LFT3, CKMBS, LACT3, TROPN, MBF33, DIG3, HA1C2, PCAL ####[address] [place], [place] Chloride molar conc 105 mmol/L Normal 98-107 [facility] Comment on above: Performed By: #### H EMDF, APTT, PT, BMP3M, MG3, PHOS3, LFT3, CKMBS, LACT3, TROPN, MBF33, DIG3, HA1C2, PCAL ####[address] [place], [place] CR Chest Portableon 11-17-19 18 CR Chest Portable Patient Name: GONZALO LEI Diagnostic Radiology Exam Date/Time 11/16/2017 05:50:31 EDT Exam CR Chest Portable Ordering Physician IVANA REED JUDITH A. Accession Number [id number] CPT4 Codes 70970 () Reason For Exam respiratory failure Report Portable chest 11/16/2017: Clinical Information: Respiratory failure. Findings: A single AP portable view of the chest was obtained at 535 hours. Comparison was made to the prior study 11/15/2017. The trachea is midline. The heart is not enlarged. There is bilateral basilar atelectasis. The pulmonary vasculature may be mildly congested. Report Dictated on Workstation: [id number] Final Dictated: 11/16/2017 6:04 am Dictating Physician: MD HEADLEY RISA Signed Date and Time: 11/16/2017 6:15 am Signed by: MD HEADLEY RISA Transcribed Date and Time: 11/16/2017 6:04 Normal [facility] CULT./ST. RESPIRATORYon CULT./ST. RESPIRATORY CULT./ST. RESPIRAT ORY --> Status: F Few normal respiratory kj. STAIN GRAM --> Status: F Many polymorphonuclear cells/lpf. Moderate epithelial cells/lpf. Rare gram positive cocci. Moderate epithelial cells/lpf. Rare gram positive cocci. Normal [facility] Comment on above: Order Comment: Speci men Source Comment:Sputum Expectorated Performed By: #### H EMDF, APTT, PT, BMP3M, MG3, PHOS3, LFT3, CKMBS, LACT3, TROPN, MBF33, DIG3, HA1C2, PCAL ####[facility] Holdings[address] [employer] [place] [address] Calcium,Ionizedon 11-16-2017 Ionized Ca,Measured 3.90 mg/dL Low 4.30-5.20 [facility] Comment on above: Performed By: #### H EMDF, APTT, PT, BMP3M, MG3, PHOS3, LFT3, CKMBS, LACT3, TROPN, MBF33, DIG3, HA1C2, PCAL ####[facility] [id number] [place], [place] pH, Ionized Calcium 7.41 Normal 7.31-7.46 [facility] Comment on above: Performed By: #### H EMDF, APTT, PT, BMP3M, MG3, PHOS3, LFT3, CKMBS, LACT3, TROPN, MBF33, DIG3, HA1C2, PCAL ####[address] Glucose,Bedsideon 11-16-2017 Glucose mass conc 105 mg/dL High 70-100 [facility] Comment on above: Result Comment: Test performed by glucose meter. Results may be 10%-15% lowerthan serum/plasma values. (CLIA ID [id number]) Performed By: #### H EMDF, APTT, PT, BMP3M, MG3, PHOS3, LFT3, CKMBS, LACT3, TROPN, MBF33, DIG3, HA1C2, PCAL ####[facility] [address] Glucose mass conc 95 mg/dL Normal 70-100 [facility] Comment on above: Result Comment: Test performed by glucose meter. Results may be 10%-15% lowerthan serum/plasma values. (CLIA ID [id number]) Performed By: #### H EMDF, APTT, PT, BMP3M, MG3, PHOS3, LFT3, CKMBS, LACT3, TROPN, MBF33, DIG3, HA1C2, PCAL ####[facility] [address] Glucose mass conc 109 mg/dL High 70-100 [facility] Comment on above: Result Comment: Test performed by glucose meter. Results may be 10%-15% lowerthan serum/plasma values. (CLIA ID [id number]) Performed By: #### H EMDF, APTT, PT, BMP3M, MG3, PHOS3, LFT3, CKMBS, LACT3, TROPN, MBF33, DIG3, HA1C2, PCAL ####[facility] [id number] [place], [place] Hemogram w/ [employer]od[employer] 11-16 Abs Baso Cnt 0.0 10*3/uL Normal 0.0-0.2 [facility] [facility] Comment on above: Performed By: #### H EMDF, APTT, PT, BMP3M, MG3, PHOS3, LFT3, CKMBS, LACT3, TROPN, MBF33, DIG3, HA1C2, PCAL ####[address] Abs Neutrophile Cnt 5.4 10*3/uL Normal 1.8-7.0 [facility] Comment on above: Performed By: #### H EMDF, APTT, PT, BMP3M, MG3, PHOS3, LFT3, CKMBS, LACT3, TROPN, MBF33, DIG3, HA1C2, PCAL ####[address] Basophils/100 WBC Auto (Bld) 0.7 % Normal 0.0-2.0 [facility] Comment on above: Performed By: #### H EMDF, APTT, PT, BMP3M, MG3, PHOS3, LFT3, CKMBS, LACT3, TROPN, MBF33, DIG3, HA1C2, PCAL ####[address] Eosinophils Auto #/vol (Bld) 0.0 10*3/uL Normal 0.0-0.5 [facility] Comment on above: Performed By: #### H EMDF, APTT, PT, BMP3M, MG3, PHOS3, LFT3, CKMBS, LACT3, TROPN, MBF33, DIG3, HA1C2, PCAL ####[address] Eosinophils/100 WBC Auto (Bld) 0.4 % Low 1.0-6.0 [facility] Comment on above: Performed By: #### H EMDF, APTT, PT, BMP3M, MG3, PHOS3, LFT3, CKMBS, LACT3, TROPN, MBF33, DIG3, HA1C2, PCAL ####[address] Erythrocyte distribution width Auto Ratio (RBC) 17.7 % High 11.5-14.5 [facility] Comment on above: Performed By: #### H EMDF, APTT, PT, BMP3M, MG3, PHOS3, LFT3, CKMBS, LACT3, TROPN, MBF33, DIG3, HA1C2, PCAL ####[address] Granulocytes/100 WBC (Bld) 73.8 % Normal 40.0-80.0 [facility] Comment on above: Performed By: #### H EMDF, APTT, PT, BMP3M, MG3, PHOS3, LFT3, CKMBS, LACT3, TROPN, MBF33, DIG3, HA1C2, PCAL ####[address] Hematocrit Auto Volume Fraction (Bld) 35.1 % Normal 35.0-47.0 [facility] Comment on above: Performed By: #### H EMDF, APTT, PT, BMP3M, MG3, PHOS3, LFT3, CKMBS, LACT3, TROPN, MBF33, DIG3, HA1C2, PCAL ####[address] Hemoglobin mass conc (Bld) 11.5 g/dL Low 11.7-16.0 [facility] Comment on above: Performed By: #### H EMDF, APTT, PT, BMP3M, MG3, PHOS3, LFT3, CKMBS, LACT3, TROPN, MBF33, DIG3, HA1C2, PCAL ####[address] Lymphocytes Auto #/vol (Bld) 1.1 10*3/uL Normal 1.0-4.3 [facility] Comment on above: Performed By: #### H EMDF, APTT, PT, BMP3M, MG3, PHOS3, LFT3, CKMBS, LACT3, TROPN, MBF33, DIG3, HA1C2, PCAL ####[address] Lymphocytes/100 WBC Auto (Bld) 15.6 % Low 20.0-40.0 [facility] Comment on above: Performed By: #### H EMDF, APTT, PT, BMP3M, MG3, PHOS3, LFT3, CKMBS, LACT3, TROPN, MBF33, DIG3, HA1C2, PCAL ####[address] MCH Auto Entitic mass (RBC) 29.2 pg Normal 26.0-34.0 [facility] Comment on above: Performed By: #### H EMDF, APTT, PT, BMP3M, MG3, PHOS3, LFT3, CKMBS, LACT3, TROPN, MBF33, DIG3, HA1C2, PCAL ####[address] MCHC Auto mass conc (RBC) 32.6 % Normal 32.0-36.0 [facility] Comment on above: Performed By: #### H EMDF, APTT, PT, BMP3M, MG3, PHOS3, LFT3, CKMBS, LACT3, TROPN, MBF33, DIG3, HA1C2, PCAL ####[address] MCV Auto Entitic volume (RBC) 89.6 fL Normal 79.0-98.0 [facility] Comment on above: Performed By: #### H EMDF, APTT, PT, BMP3M, MG3, PHOS3, LFT3, CKMBS, LACT3, TROPN, MBF33, DIG3, HA1C2, PCAL ####[address] Monocytes Auto #/vol (Bld) 0.7 10*3/uL Normal 0.0-0.8 [facility] Comment on above: Performed By: #### H EMDF, APTT, PT, BMP3M, MG3, PHOS3, LFT3, CKMBS, LACT3, TROPN, MBF33, DIG3, HA1C2, PCAL ####[address] Monocytes/100 WBC Auto (Bld) 9.5 % Normal 2.0-10.0 [facility] Comment on above: Performed By: #### H EMDF, APTT, PT, BMP3M, MG3, PHOS3, LFT3, CKMBS, LACT3, TROPN, MBF33, DIG3, HA1C2, PCAL ####[address] Platelet mean volume Auto Entitic volume (Bld) 10.5 fL High 7.4-10.4 [facility] Comment on above: Performed By: #### H EMDF, APTT, PT, BMP3M, MG3, PHOS3, LFT3, CKMBS, LACT3, TROPN, MBF33, DIG3, HA1C2, PCAL ####[address] Platelets Auto #/vol (Bld) 158 10*3/uL Normal 140-440 [facility] Comment on above: Performed By: #### H EMDF, APTT, PT, BMP3M, MG3, PHOS3, LFT3, CKMBS, LACT3, TROPN, MBF33, DIG3, HA1C2, PCAL ####[address] RBC Auto #/vol (Bld) 3.92 10*6/uL Normal 3.80-5.20 [facility] Comment on above: Performed By: #### H EMDF, APTT, PT, BMP3M, MG3, PHOS3, LFT3, CKMBS, LACT3, TROPN, MBF33, DIG3, HA1C2, PCAL ####[address] WBC Auto #/vol (Bld) 7.3 10*3/uL Normal 3.6-10.7 [facility] Comment on above: Performed By: #### H EMDF, APTT, PT, BMP3M, MG3, PHOS3, LFT3, CKMBS, LACT3, TROPN, MBF33, DIG3, HA1C2, PCAL ####[id number] [place], [place] Hepatic Functionon 8 ALT enzyme act/vol 27 U/L Normal 13-69 [facility] Comment on above: Performed By: #### H EMDF, APTT, PT, BMP3M, MG3, PHOS3, LFT3, CKMBS, LACT3, TROPN, MBF33, DIG3, HA1C2, PCAL ####[address] ALP enzyme act/vol 51 U/L Normal 38-126 [facility] Comment on above: Performed By: #### H EMDF, APTT, PT, BMP3M, MG3, PHOS3, LFT3, CKMBS, LACT3, TROPN, MBF33, DIG3, HA1C2, PCAL ####[address] AST enzyme act/vol 26 U/L Normal 15-46 [facility] Comment on above: Performed By: #### H EMDF, APTT, PT, BMP3M, MG3, PHOS3, LFT3, CKMBS, LACT3, TROPN, MBF33, DIG3, HA1C2, PCAL ####[id number] [place], [place] Bilirubin mass conc 0.5 mg/dL Normal 0.2-1.3 [facility] Comment on above: Performed By: #### H EMDF, APTT, PT, BMP3M, MG3, PHOS3, LFT3, CKMBS, LACT3, TROPN, MBF33, DIG3, HA1C2, PCAL ####[id number] [place], [place] Bilirubin.direct mass conc 0.0 mg/dL Normal 0.0-0.3 [facility] Comment on above: Performed By: #### H EMDF, APTT, PT, BMP3M, MG3, PHOS3, LFT3, CKMBS, LACT3, TROPN, MBF33, DIG3, HA1C2, PCAL ####[address] Protein mass conc 6.0 g/dL Low 6.3-8.2 [facility] Comment on above: Performed By: #### H EMDF, APTT, PT, BMP3M, MG3, PHOS3, LFT3, CKMBS, LACT3, TROPN, MBF33, DIG3, HA1C2, PCAL ####[address] Albumin mass conc 3.8 g/dL Normal 3.5-5.0 [facility] Comment on above: Performed By: #### H EMDF, APTT, PT, BMP3M, MG3, PHOS3, LFT3, CKMBS, LACT3, TROPN, MBF33, DIG3, HA1C2, PCAL ####[address] Magnesiumon 11-16-2017 Magnesium mass conc 1.9 mg/dL Normal 1.6-2.3 [facility] Comment on above: Performed By: #### H EMDF, APTT, PT, BMP3M, MG3, PHOS3, LFT3, CKMBS, LACT3, TROPN, MBF33, DIG3, HA1C2, PCAL ####[address] Phosphoruson 11-16-2017 Phosphate mass conc 4.1 mg/dL Normal 2.5-4.5 [facility] Comment on above: Performed By: #### H EMDF, APTT, PT, BMP3M, MG3, PHOS3, LFT3, CKMBS, LACT3, TROPN, MBF33, DIG3, HA1C2, PCAL ####[id number] [place], [place] Procalcitoninon 11-16-2017 Protein mass conc 0.25 ng/mL Abnormal <0.10 [facility] Comment on above: Performed By: #### H EMDF, APTT, PT, BMP3M, MG3, PHOS3, LFT3, CKMBS, LACT3, TROPN, MBF33, DIG3, HA1C2, PCAL ####[address] Basic Metabolic Panelon 10-0 Calcium mass conc 8.4 mg/dL Normal 8.4-10.4 [facility] Comment on above: Performed By: #### H EMDF, APTT, PT, BMP3M, MG3, PHOS3, LFT3, CKMBS, LACT3, TROPN, MBF33, DIG3, HA1C2, PCAL ####[address] Anion gap 3 molar conc 7 Normal [facility] Comment on above: Performed By: #### H EMDF, APTT, PT, BMP3M, MG3, PHOS3, LFT3, CKMBS, LACT3, TROPN, MBF33, DIG3, HA1C2, PCAL ####[address] CO2 molar conc 25 mmol/L Normal 22-30 [facility] Comment on above: Performed By: #### H EMDF, APTT, PT, BMP3M, MG3, PHOS3, LFT3, CKMBS, LACT3, TROPN, MBF33, DIG3, HA1C2, PCAL ####[address] Creatinine mass conc 1.02 mg/dL Normal 0.52-1.25 [facility] Comment on above: Performed By: #### H EMDF, APTT, PT, BMP3M, MG3, PHOS3, LFT3, CKMBS, LACT3, TROPN, MBF33, DIG3, HA1C2, PCAL ####[id number] [place] [address] GFR/1.73 sq M predicted among blacks MDRD vol rate/area (S/P/Bld) mL/min/{1.73_m2} Normal >60 [facility] Comment on above: Performed By: #### H EMDF, APTT, PT, BMP3M, MG3, PHOS3, LFT3, CKMBS, LACT3, TROPN, MBF33, DIG3, HA1C2, PCAL ####[address] [address] GFR/1.73 sq M predicted among non-blacks MDRD vol rate/area (S/P/Bld) 51.9 mL/min/{1.73_m2} Normal >60 [facility] Comment on above: Result Comment: Sour ce- MDRD equation with creatinine calibration to IDMS(NKDEP) eGFR not recommended for drug dose adjustment Performed By: #### H EMDF, APTT, PT, BMP3M, MG3, PHOS3, LFT3, CKMBS, LACT3, TROPN, MBF33, DIG3, HA1C2, PCAL ####[facility] [address] Glucose mass conc 98 mg/dL Normal 70-100 [facility] Comment on above: Performed By: #### H EMDF, APTT, PT, BMP3M, MG3, PHOS3, LFT3, CKMBS, LACT3, TROPN, MBF33, DIG3, HA1C2, PCAL ####[facility] [address] [address] Urea nitrogen mass conc 15 mg/dL Normal 7-20 [facility] Comment on above: Performed By: #### H EMDF, APTT, PT, BMP3M, MG3, PHOS3, LFT3, CKMBS, LACT3, TROPN, MBF33, DIG3, HA1C2, PCAL ####[id number] [place] [address] Potassium molar conc 4.5 mmol/L Normal 3.5-5.1 [facility] Comment on above: Performed By: #### H EMDF, APTT, PT, BMP3M, MG3, PHOS3, LFT3, CKMBS, LACT3, TROPN, MBF33, DIG3, HA1C2, PCAL ####[address] Sodium molar conc 139 mmol/L Normal 137-145 [facility] Comment on above: Performed By: #### H EMDF, APTT, PT, BMP3M, MG3, PHOS3, LFT3, CKMBS, LACT3, TROPN, MBF33, DIG3, HA1C2, PCAL ####[address] Chloride molar conc 107 mmol/L Normal 98-107 [facility] Comment on above: Performed By: #### H EMDF, APTT, PT, BMP3M, MG3, PHOS3, LFT3, CKMBS, LACT3, TROPN, MBF33, DIG3, HA1C2, PCAL ####[address] CKMB Fractionationon 018 CK.MB mass conc 1.9 ng/mL Normal 0.0-2.4 [facility] Comment on above: Result Comment: Both the CKMB and the Relative Index must be abnormal forclinical significance. Performed By: #### H EMDF, APTT, PT, BMP3M, MG3, PHOS3, LFT3, CKMBS, LACT3, TROPN, MBF33, DIG3, HA1C2, PCAL ####[address] Relative Index 1.1 Normal 0.0-3.0 [facility] Comment on above: Performed By: #### H EMDF, APTT, PT, BMP3M, MG3, PHOS3, LFT3, CKMBS, LACT3, TROPN, MBF33, DIG3, HA1C2, PCAL ####[address] CK.MB mass conc 2.5 ng/mL High 0.0-2.4 [facility] Comment on above: Result Comment: Both the CKMB and the Relative Index must be abnormal forclinical significance. Performed By: #### H EMDF, APTT, PT, BMP3M, MG3, PHOS3, LFT3, CKMBS, LACT3, TROPN, MBF33, DIG3, HA1C2, PCAL ####[id number] [place], [place] Relative Index 1.2 Normal 0.0-3.0 [facility] Comment on above: Performed By: #### H EMDF, APTT, PT, BMP3M, MG3, PHOS3, LFT3, CKMBS, LACT3, TROPN, MBF33, DIG3, HA1C2, PCAL ####[address] CK.MB mass conc 3.5 ng/mL High 0.0-2.4 [facility] Comment on above: Result Comment: Both the CKMB and the Relative Index must be abnormal forclinical significance. Performed By: #### H EMDF, APTT, PT, BMP3M, MG3, PHOS3, LFT3, CKMBS, LACT3, TROPN, MBF33, DIG3, HA1C2, PCAL ####[address] Relative Index 1.4 Normal 0.0-3.0 [facility] Comment on above: Performed By: #### H EMDF, APTT, PT, BMP3M, MG3, PHOS3, LFT3, CKMBS, LACT3, TROPN, MBF33, DIG3, HA1C2, PCAL ####[address] CKMB Screenon 11-15-2017 CK enzyme act/vol 174 U/L High 30-170 [facility] Comment on above: Performed By: #### H EMDF, APTT, PT, BMP3M, MG3, PHOS3, LFT3, CKMBS, LACT3, TROPN, MBF33, DIG3, HA1C2, PCAL ####[id number] [place] [address] CK enzyme act/vol 213 U/L High 30-170 [facility] Comment on above: Performed By: #### H EMDF, APTT, PT, BMP3M, MG3, PHOS3, LFT3, CKMBS, LACT3, TROPN, MBF33, DIG3, HA1C2, PCAL ####[facility] [place] [address] CK enzyme act/vol 244 U/L High 30-170 [facility] Comment on above: Performed By: #### H EMDF, APTT, PT, BMP3M, MG3, PHOS3, LFT3, CKMBS, LACT3, TROPN, MBF33, DIG3, HA1C2, PCAL ####[id number] [place] [address] CR Chest Portableon 11-16-19 18 CR Chest Portable Patient Name: GONZALO LEI Diagnostic Radiology Exam Date/Time 11/15/2017 13:00:27 EDT Exam CR Chest Portable Ordering Physician IVANA REED JUDITH A. Accession Number [id number] CPT4 Codes 01985 () Reason For Exam respiratory failure Report EXAM TYPE: RADIOLOGIC EXAMINATION, CHEST, SINGLE VIEW FRONTAL (CXR SINGLE VIEW) EXAM DATE AND TIME: 11/15/2017 1:00 PM EDT INDICATION: Respiratory failure. COMPARISON: 11/14/2017 TECHNIQUE: A single frontal view of the thorax was obtained and reviewed. Special views: None. IMPRESSION: 1. Lines/Tubes/Devices/[place] re: Endotracheal tube, NG tube removed.. 2. Lungs: Persistent interstitial prominence and some areas of atelectasis or infiltrate in the right lung base. Improved aeration left lung base. 3. Pleura: Questionable small effusions. No definite pneumothorax. 4. Heart and mediastinum: Stable cardiac enlargement. 5. Upper abdomen: No acute process seen. Report Dictated on Final Dictated: 11/15/2017 2:39 pm Dictating Physician: MD LYONS JOHN Signed Date and Time: 11/15/2017 2:40 pm Signed by: MD LYONS JOHN Transcribed Date and Time: 11/15/2017 2:39 Normal [facility] Free T4on 11-15-2017 T4 free mass conc 1.35 ng/dL Normal 0.78-2.19 [facility] Comment on above: Performed By: #### H EMDF, APTT, PT, BMP3M, MG3, PHOS3, LFT3, CKMBS, LACT3, TROPN, MBF33, DIG3, HA1C2, PCAL ####[facility] [id number] [place] [address] Glucose,Bedsideon 11-15-2017 Glucose mass conc 95 mg/dL Normal 70-100 [facility] Comment on above: Result Comment: Test performed by glucose meter. Results may be 10%-15% lowerthan serum/plasma values. (CLIA ID [id number]) Performed By: #### H EMDF, APTT, PT, BMP3M, MG3, PHOS3, LFT3, CKMBS, LACT3, TROPN, MBF33, DIG3, HA1C2, PCAL ####[id number] [place] [address] Glucose mass conc 98 mg/dL Normal 70-100 [facility] Comment on above: Result Comment: Test performed by glucose meter. Results may be 10%-15% lowerthan serum/plasma values. (CLIA ID [id number]) Performed By: #### H EMDF, APTT, PT, BMP3M, MG3, PHOS3, LFT3, CKMBS, LACT3, TROPN, MBF33, DIG3, HA1C2, PCAL ####[id number] [place] [address] Glucose mass conc 104 mg/dL High 70-100 [facility] Comment on above: Result Comment: Test performed by glucose meter. Results may be 10%-15% lowerthan serum/plasma values. (CLIA ID [id number]) Performed By: #### H EMDF, APTT, PT, BMP3M, MG3, PHOS3, LFT3, CKMBS, LACT3, TROPN, MBF33, DIG3, HA1C2, PCAL ####[address] [address] Glucose mass conc 98 mg/dL Normal 70-100 [facility] Comment on above: Result Comment: Test performed by glucose meter. Results may be 10%-15% lowerthan serum/plasma values. (CLIA ID [id number]) Performed By: #### H EMDF, APTT, PT, BMP3M, MG3, PHOS3, LFT3, CKMBS, LACT3, TROPN, MBF33, DIG3, HA1C2, PCAL ####[address] Glucose mass conc 110 mg/dL High 70-100 [facility] Comment on above: Result Comment: Test performed by glucose meter. Results may be 10%-15% lowerthan serum/plasma values. (CLIA ID [id number]) Performed By: #### H EMDF, APTT, PT, BMP3M, MG3, PHOS3, LFT3, CKMBS, LACT3, TROPN, MBF33, DIG3, HA1C2, PCAL ####[address] [address] Hemogram w/ Autodiffon 11-15 Abs Baso Cnt 0.1 10*3/uL Normal 0.0-0.2 [facility] Comment on above: Performed By: #### H EMDF, APTT, PT, BMP3M, MG3, PHOS3, LFT3, CKMBS, LACT3, TROPN, MBF33, DIG3, HA1C2, PCAL ####[address] Abs Neutrophile Cnt 5.7 10*3/uL Normal 1.8-7.0 [facility] Comment on above: Performed By: #### H EMDF, APTT, PT, BMP3M, MG3, PHOS3, LFT3, CKMBS, LACT3, TROPN, MBF33, DIG3, HA1C2, PCAL ####[address] Basophils/100 WBC Auto (Bld) 0.7 % Normal 0.0-2.0 [facility] Comment on above: Performed By: #### H EMDF, APTT, PT, BMP3M, MG3, PHOS3, LFT3, CKMBS, LACT3, TROPN, MBF33, DIG3, HA1C2, PCAL ####[address] Eosinophils Auto #/vol (Bld) 0.0 10*3/uL Normal 0.0-0.5 [facility] Comment on above: Performed By: #### H EMDF, APTT, PT, BMP3M, MG3, PHOS3, LFT3, CKMBS, LACT3, TROPN, MBF33, DIG3, HA1C2, PCAL ####[address] Eosinophils/100 WBC Auto (Bld) 0.3 % Low 1.0-6.0 [facility] Comment on above: Performed By: #### H EMDF, APTT, PT, BMP3M, MG3, PHOS3, LFT3, CKMBS, LACT3, TROPN, MBF33, DIG3, HA1C2, PCAL ####[address] Erythrocyte distribution width Auto Ratio (RBC) 17.8 % High 11.5-14.5 [facility] Comment on above: Performed By: #### H EMDF, APTT, PT, BMP3M, MG3, PHOS3, LFT3, CKMBS, LACT3, TROPN, MBF33, DIG3, HA1C2, PCAL ####[address] Granulocytes/100 WBC (Bld) 74.3 % Normal 40.0-80.0 [facility] Comment on above: Performed By: #### H EMDF, APTT, PT, BMP3M, MG3, PHOS3, LFT3, CKMBS, LACT3, TROPN, MBF33, DIG3, HA1C2, PCAL ####[address] Hematocrit Auto Volume Fraction (Bld) 34.0 % Low 35.0-47.0 [facility] Comment on above: Performed By: #### H EMDF, APTT, PT, BMP3M, MG3, PHOS3, LFT3, CKMBS, LACT3, TROPN, MBF33, DIG3, HA1C2, PCAL ####[address] Hemoglobin mass conc (Bld) 11.1 g/dL Low 11.7-16.0 [facility] Comment on above: Performed By: #### H EMDF, APTT, PT, BMP3M, MG3, PHOS3, LFT3, CKMBS, LACT3, TROPN, MBF33, DIG3, HA1C2, PCAL ####[address] Lymphocytes Auto #/vol (Bld) 1.2 10*3/uL Normal 1.0-4.3 [facility] Comment on above: Performed By: #### H EMDF, APTT, PT, BMP3M, MG3, PHOS3, LFT3, CKMBS, LACT3, TROPN, MBF33, DIG3, HA1C2, PCAL ####[address] Lymphocytes/100 WBC Auto (Bld) 16.0 % Low 20.0-40.0 [facility] Comment on above: Performed By: #### H EMDF, APTT, PT, BMP3M, MG3, PHOS3, LFT3, CKMBS, LACT3, TROPN, MBF33, DIG3, HA1C2, PCAL ####[address] MCH Auto Entitic mass (RBC) 29.3 pg Normal 26.0-34.0 [facility] Comment on above: Performed By: #### H EMDF, APTT, PT, BMP3M, MG3, PHOS3, LFT3, CKMBS, LACT3, TROPN, MBF33, DIG3, HA1C2, PCAL ####[id number] [place], [place] MCHC Auto mass conc (RBC) 32.6 % Normal 32.0-36.0 [facility] Comment on above: Performed By: #### H EMDF, APTT, PT, BMP3M, MG3, PHOS3, LFT3, CKMBS, LACT3, TROPN, MBF33, DIG3, HA1C2, PCAL ####[address] MCV Auto Entitic volume (RBC) 89.8 fL Normal 79.0-98.0 [facility] Comment on above: Performed By: #### H EMDF, APTT, PT, BMP3M, MG3, PHOS3, LFT3, CKMBS, LACT3, TROPN, MBF33, DIG3, HA1C2, PCAL ####[address] Monocytes Auto #/vol (Bld) 0.7 10*3/uL Normal 0.0-0.8 [facility] Comment on above: Performed By: #### H EMDF, APTT, PT, BMP3M, MG3, PHOS3, LFT3, CKMBS, LACT3, TROPN, MBF33, DIG3, HA1C2, PCAL ####[address] Monocytes/100 WBC Auto (Bld) 8.7 % Normal 2.0-10.0 [facility] Comment on above: Performed By: #### H EMDF, APTT, PT, BMP3M, MG3, PHOS3, LFT3, CKMBS, LACT3, TROPN, MBF33, DIG3, HA1C2, PCAL ####[address] Platelet mean volume Auto Entitic volume (Bld) 10.3 fL Normal 7.4-10.4 [facility] Comment on above: Performed By: #### H EMDF, APTT, PT, BMP3M, MG3, PHOS3, LFT3, CKMBS, LACT3, TROPN, MBF33, DIG3, HA1C2, PCAL ####[address] Platelets Auto #/vol (Bld) 160 10*3/uL Normal 140-440 [facility] Comment on above: Performed By: #### H EMDF, APTT, PT, BMP3M, MG3, PHOS3, LFT3, CKMBS, LACT3, TROPN, MBF33, DIG3, HA1C2, PCAL ####[address] RBC Auto #/vol (Bld) 3.79 10*6/uL Low 3.80-5.20 [facility] Comment on above: Performed By: #### H EMDF, APTT, PT, BMP3M, MG3, PHOS3, LFT3, CKMBS, LACT3, TROPN, MBF33, DIG3, HA1C2, PCAL ####[address] WBC Auto #/vol (Bld) 7.7 10*3/uL Normal 3.6-10.7 [facility] Comment on above: Performed By: #### H EMDF, APTT, PT, BMP3M, MG3, PHOS3, LFT3, CKMBS, LACT3, TROPN, MBF33, DIG3, HA1C2, PCAL ####[address] Hepatic Functionon 8 ALT enzyme act/vol 25 U/L Normal 13-69 [facility] Comment on above: Performed By: #### H EMDF, APTT, PT, BMP3M, MG3, PHOS3, LFT3, CKMBS, LACT3, TROPN, MBF33, DIG3, HA1C2, PCAL ####[address] ALP enzyme act/vol 54 U/L Normal 38-126 [facility] Comment on above: Performed By: #### H EMDF, APTT, PT, BMP3M, MG3, PHOS3, LFT3, CKMBS, LACT3, TROPN, MBF33, DIG3, HA1C2, PCAL ####[address] AST enzyme act/vol 30 U/L Normal 15-46 [facility] Comment on above: Performed By: #### H EMDF, APTT, PT, BMP3M, MG3, PHOS3, LFT3, CKMBS, LACT3, TROPN, MBF33, DIG3, HA1C2, PCAL ####[address] Bilirubin mass conc 0.5 mg/dL Normal 0.2-1.3 [facility] Comment on above: Performed By: #### H EMDF, APTT, PT, BMP3M, MG3, PHOS3, LFT3, CKMBS, LACT3, TROPN, MBF33, DIG3, HA1C2, PCAL ####[address] Bilirubin.direct mass conc 0.0 mg/dL Normal 0.0-0.3 [facility] Comment on above: Performed By: #### H EMDF, APTT, PT, BMP3M, MG3, PHOS3, LFT3, CKMBS, LACT3, TROPN, MBF33, DIG3, HA1C2, PCAL ####[address] Protein mass conc 6.1 g/dL Low 6.3-8.2 [facility] Comment on above: Performed By: #### H EMDF, APTT, PT, BMP3M, MG3, PHOS3, LFT3, CKMBS, LACT3, TROPN, MBF33, DIG3, HA1C2, PCAL ####[id number] [place], [place] Albumin mass conc 3.8 g/dL Normal 3.5-5.0 [facility] Comment on above: Performed By: #### H EMDF, APTT, PT, BMP3M, MG3, PHOS3, LFT3, CKMBS, LACT3, TROPN, MBF33, DIG3, HA1C2, PCAL ####[address] Lactic Acidon 11-15-2017 Lactate molar conc 0.7 mmol/L Normal 0.7-2.0 [facility] Comment on above: Performed By: #### H EMDF, APTT, PT, BMP3M, MG3, PHOS3, LFT3, CKMBS, LACT3, TROPN, MBF33, DIG3, HA1C2, PCAL ####[address] Lactate molar conc 0.6 mmol/L Low 0.7-2.0 [facility] Comment on above: Performed By: #### H EMDF, APTT, PT, BMP3M, MG3, PHOS3, LFT3, CKMBS, LACT3, TROPN, MBF33, DIG3, HA1C2, PCAL ####[address] Magnesiumon 11-15-2017 Magnesium mass conc 2.3 mg/dL Normal 1.6-2.3 [facility] Comment on above: Performed By: #### H EMDF, APTT, PT, BMP3M, MG3, PHOS3, LFT3, CKMBS, LACT3, TROPN, MBF33, DIG3, HA1C2, PCAL ####[address] Phosphoruson 11-15-2017 Phosphate mass conc 4.0 mg/dL Normal 2.5-4.5 [facility] Comment on above: Performed By: #### H EMDF, APTT, PT, BMP3M, MG3, PHOS3, LFT3, CKMBS, LACT3, TROPN, MBF33, DIG3, HA1C2, PCAL ####[address] Procalcitoninon 11-15-2017 Interpretation See Below Normal [facility] Comment on above: Result Comment: PCT <0.50 = Low risk of severe sepsis and/or septic shock.PCT >2.00 = High risk of severe sepsis and/or septic shock. Performed By: #### H EMDF, APTT, PT, BMP3M, MG3, PHOS3, LFT3, CKMBS, LACT3, TROPN, MBF33, DIG3, HA1C2, PCAL ####[address] Troponin Ion 11-15-2017 Troponin I.cardiac mass conc 0.100 ng/mL High 0.000-0.034 [facility] Comment on above: Result Comment: 0.04 6 - 0.400 = Indeterminate> 0.400 = Consider Myocardial Injury Performed By: #### H EMDF, APTT, PT, BMP3M, MG3, PHOS3, LFT3, CKMBS, LACT3, TROPN, MBF33, DIG3, HA1C2, PCAL ####[address] Troponin I.cardiac mass conc 0.167 ng/mL High 0.000-0.034 [facility] Comment on above: Result Comment: 0.04 6 - 0.400 = Indeterminate> 0.400 = Consider Myocardial Injury Performed By: #### H EMDF, APTT, PT, BMP3M, MG3, PHOS3, LFT3, CKMBS, LACT3, TROPN, MBF33, DIG3, HA1C2, PCAL ####[address] Troponin I.cardiac mass conc 0.233 ng/mL High 0.000-0.034 [facility] Comment on above: Result Comment: 0.04 6 - 0.400 = Indeterminate> 0.400 = Consider Myocardial Injury Performed By: #### H EMDF, APTT, PT, BMP3M, MG3, PHOS3, LFT3, CKMBS, LACT3, TROPN, MBF33, DIG3, HA1C2, PCAL ####[id number] [place] [address] Vitamin B12on 11-15-2017 Cobalamin (Vitamin B12) mass conc 237 pg/mL Low 239-931 [facility] Comment on above: Performed By: #### H EMDF, APTT, PT, BMP3M, MG3, PHOS3, LFT3, CKMBS, LACT3, TROPN, MBF33, DIG3, HA1C2, PCAL ####[address] APTTon 11-14-2017 aPTT Coag time (Bld) 20.4 s Normal 20.0-30.5 [facility] Comment on above: Result Comment: NOTE : The therapeutic time for Heparin anticoagulation,based on Xa activity inhibition, is an APTT of 46-80seconds. Performed By: #### H EMDF, APTT, PT, BMP3M, MG3, PHOS3, LFT3, CKMBS, LACT3, TROPN, MBF33, DIG3, HA1C2, PCAL ####[address] Arterial Blood Gaseson 11-14 HCO3 molar conc (Bld) 22.2 mmol/L Normal 21.0-25.0 [facility] Comment on above: Performed By: #### A BG ####[address] [place], [place] Hemoglobin mass conc (Bld) 12.9 g/dL Normal ScreenOnly [facility] Comment on above: Performed By: #### A BG ####[address] Oxygen ppres (BldA) 99.1 mm[Hg] Normal 80.0-100.0 [facility] Comment on above: Performed By: #### A BG ####[address] [place], [place] Oxygen saturation in Blood 97.3 % Normal 95.0-100.0 [facility] Comment on above: Performed By: #### A BG ####[address] pCO2 39.2 mm[Hg] Normal 35.0-45.0 [facility] Comment on above: Performed By: #### A BG ####[address] pH (Bld) 7.371 Normal 7.350-7.450 [facility] Comment on above: Performed By: #### A BG ####[address] Std Base Excess -2.7 mmol/L Normal -3.0-3.0 [facility] Comment on above: Performed By: #### A BG ####[address] TCO2 23.4 mmol/L Normal 23.0-27.0 [facility] Comment on above: Performed By: #### A BG ####[address] FIO2 4L Normal [facility] Comment on above: Performed By: #### A BG ####[address] HCO3 molar conc (Bld) 22.4 mmol/L Normal 21.0-25.0 [facility] Comment on above: Performed By: #### A BG ####[address] Hemoglobin mass conc (Bld) 14.7 g/dL Normal ScreenOnly [facility] Comment on above: Performed By: #### A BG ####[address] Oxygen ppres (BldA) 132.3 mm[Hg] High 80.0-100.0 [facility] Comment on above: Performed By: #### A BG ####[address] Oxygen saturation in Blood 98.0 % Normal 95.0-100.0 [facility] Comment on above: Performed By: #### A BG ####[address] pCO2 44.7 mm[Hg] Normal 35.0-45.0 [facility] Comment on above: Performed By: #### A BG ####[address] pH (Bld) 7.318 Low 7.350-7.450 [facility] Comment on above: Performed By: #### A BG ####[address] Std Base Excess -3.8 mmol/L Low -3.0-3.0 [facility] Comment on above: Performed By: #### A BG ####[address] TCO2 23.8 mmol/L Normal 23.0-27.0 [facility] Comment on above: Performed By: #### A BG ####[address] FIO2 0.60 Normal [facility] Comment on above: Performed By: #### A BG ####[address] Basic Metabolic Panelon 10-0 Calcium mass conc 8.6 mg/dL Normal 8.4-10.4 [facility] Comment on above: Performed By: #### H EMDF, APTT, PT, BMP3M, MG3, PHOS3, LFT3, CKMBS, LACT3, TROPN, MBF33, DIG3, HA1C2, PCAL ####[address] Glucose mass conc 325 mg/dL High 70-100 [facility] Comment on above: Performed By: #### H EMDF, APTT, PT, BMP3M, MG3, PHOS3, LFT3, CKMBS, LACT3, TROPN, MBF33, DIG3, HA1C2, PCAL ####[address] [place], [place] Urea nitrogen mass conc 16 mg/dL Normal 7-20 [facility] Comment on above: Performed By: #### H EMDF, APTT, PT, BMP3M, MG3, PHOS3, LFT3, CKMBS, LACT3, TROPN, MBF33, DIG3, HA1C2, PCAL ####[address] [place], [place] Anion gap 3 molar conc 16 Normal [facility] Comment on above: Performed By: #### H EMDF, APTT, PT, BMP3M, MG3, PHOS3, LFT3, CKMBS, LACT3, TROPN, MBF33, DIG3, HA1C2, PCAL ####[address] [place], [place] CO2 molar conc 20 mmol/L Low 22-30 [facility] Comment on above: Performed By: #### H EMDF, APTT, PT, BMP3M, MG3, PHOS3, LFT3, CKMBS, LACT3, TROPN, MBF33, DIG3, HA1C2, PCAL ####[address] [place], [place] Creatinine mass conc 0.89 mg/dL Normal 0.52-1.25 [facility] Comment on above: Performed By: #### H EMDF, APTT, PT, BMP3M, MG3, PHOS3, LFT3, CKMBS, LACT3, TROPN, MBF33, DIG3, HA1C2, PCAL ####[address] [place], [place] GFR/1.73 sq M predicted among blacks MDRD vol rate/area (S/P/Bld) mL/min/{1.73_m2} Normal >60 [facility] Comment on above: Performed By: #### H EMDF, APTT, PT, BMP3M, MG3, PHOS3, LFT3, CKMBS, LACT3, TROPN, MBF33, DIG3, HA1C2, PCAL ####[address] GFR/1.73 sq M predicted among non-blacks MDRD vol rate/area (S/P/Bld) mL/min/{1.73_m2} Normal >60 [facility] Comment on above: Result Comment: Sour ce- MDRD equation with creatinine calibration to IDMS(NKDEP) eGFR not recommended for drug dose adjustment Performed By: #### H EMDF, APTT, PT, BMP3M, MG3, PHOS3, LFT3, CKMBS, LACT3, TROPN, MBF33, DIG3, HA1C2, PCAL ####[address] Potassium molar conc 3.3 mmol/L Low 3.5-5.1 [facility] Comment on above: Performed By: #### H EMDF, APTT, PT, BMP3M, MG3, PHOS3, LFT3, CKMBS, LACT3, TROPN, MBF33, DIG3, HA1C2, PCAL ####[address] Chloride molar conc 105 mmol/L Normal 98-107 [facility] Comment on above: Performed By: #### H EMDF, APTT, PT, BMP3M, MG3, PHOS3, LFT3, CKMBS, LACT3, TROPN, MBF33, DIG3, HA1C2, PCAL ####[address] [place], [place] Sodium molar conc 142 mmol/L Normal 137-145 [facility] Comment on above: Performed By: #### H EMDF, APTT, PT, BMP3M, MG3, PHOS3, LFT3, CKMBS, LACT3, TROPN, MBF33, DIG3, HA1C2, PCAL ####[address] [address] CKMB Fractionationon 018 CK.MB mass conc 4.5 ng/mL High 0.0-2.4 [facility] Comment on above: Result Comment: Both the CKMB and the Relative Index must be abnormal forclinical significance. Performed By: #### C KMBS, K3, TROPN, MBF33, LACT3 ####[address] Relative Index 1.8 Normal 0.0-3.0 [facility] Comment on above: Performed By: #### C KMBS, K3, TROPN, MBF33, LACT3 ####[address] CK.MB mass conc 3.8 ng/mL High 0.0-2.4 [facility] Comment on above: Result Comment: Both the CKMB and the Relative Index must be abnormal forclinical significance. Performed By: #### C KMBS, MG3, K3, TROPN, MBF33, LACT3 ####[address] Relative Index 4.9 High 0.0-3.0 [facility] Comment on above: Performed By: #### C KMBS, MG3, K3, TROPN, MBF33, LACT3 ####[address] CK.MB mass conc 3.5 ng/mL High 0.0-2.4 [facility] Comment on above: Result Comment: Both the CKMB and the Relative Index must be abnormal forclinical significance. Performed By: #### A BG ####[address] Relative Index 4.7 High 0.0-3.0 [facility] Comment on above: Performed By: #### A BG ####[address] CKMB Screenon 11-14-2017 CK enzyme act/vol 252 U/L High 30-170 [facility] Comment on above: Performed By: #### C KMBS, K3, TROPN, MBF33, LACT3 ####[facility] [place] [address] CK enzyme act/vol 78 U/L Normal 30-170 [facility] Comment on above: Performed By: #### C KMBS, MG3, K3, TROPN, MBF33, LACT3 ####[facility] [place] [address] CK enzyme act/vol 74 U/L Normal 30-170 [facility] Comment on above: Performed By: #### A BG ####[address] [place] [address] CR Abdomen APon 11-14-2017 CR Abdomen AP Patient Name: GONZALO LEI Diagnostic Radiology Exam Date/Time 11/14/2017 02:46:33 EDT Exam CR Abdomen AP Ordering Physician JEMIMA NUNEZ Accession Number [id number] CPT4 Codes 56633 () Reason For Exam check OG tube tip, only if not appreciated in CXR Report CLINICAL INFORMATION: Enteric tube placement. Abdominal distention. KUB is provided. FINDINGS: An enteric tube is in place. The distal tip terminates at the gastroesophageal junction. Sideholes are present in the distal esophagus. The stomach is mildly distended. IMPRESSION: 1. Enteric tube as described. The distal tip terminates at the gastroesophageal junction. This will need to be advanced several cm. Report Dictated on Final Dictated: 11/14/2017 3:13 am Dictating Physician: MD ORELLANA JEFFREY Signed Date and Time: 11/14/2017 3:14 am Signed by: MD ORELLANA JEFFREY Transcribed Date and Time: 11/14/2017 3:13 Normal [facility] CR Chest Portableon 11-15-19 18 CR Chest Portable Patient Name: GONZALO LEI Diagnostic Radiology Exam Date/Time 11/14/2017 07:38:40 EDT Exam CR Chest Portable Ordering Physician MD ARMENDARIZ ASHLEY Accession Number [id number] CPT4 Codes 47452 () Reason For Exam ETT repositioned Report Portable chest 11/14/2017: Clinical Information: Endotracheal tube repositioned. Findings: A single AP portable view of the chest was obtained at 638 hours. Comparison was made to the prior study earlier study same date 0240 hours. The tip of the endotracheal tube lies approximately 1 cm above the kb. There is no other interval change when compared to the earlier study same date. Report Dictated on Workstation: [id number] Final Dictated: 11/14/2017 7:39 am Dictating Physician: MD HEADLEY RISA Signed Date and Time: 11/14/2017 7:40 am Signed by: MD HEADLEY RISA Transcribed Date and Time: 11/14/2017 7:39 Normal [facility] CR Chest Portable Patient Name: GONZALO LEI Diagnostic Radiology Exam Date/Time 11/14/2017 02:47:51 EDT Exam CR Chest Portable Ordering Physician JEMIMA NUNEZ Accession Number [id number] CPT4 Codes 79520 () Reason For Exam recheck tip of ET tube, placed OG tube Report CLINICAL INFORMATION: Respiratory distress. Intubation. Portable view of the chest at 0240 hours is provided and compared to a previous study dated November 13, 2017. FINDINGS: An endotracheal tube is seen with its tip at the kb. An enteric tube is now in place. This appears to terminate at the gastroesophageal junction. The heart is enlarged. The patient is status post median sternotomy and valve repair. There are bibasilar infiltrates, left greater than right. IMPRESSION: 1. Endotracheal tube with its tip to the kb. 2. Cardiomegaly. 3. Bibasilar infiltrates. 4. Enteric tube terminates at the gastroesophageal junction. Report Dictated on Final Dictated: 11/14/2017 2:53 am Dictating Physician: MD ORELLANA JEFFREY Signed Date and Time: 11/14/2017 2:55 am Signed by: MD ORELLANA JEFFREY Transcribed Date and Time: 11/14/2017 2:53 Normal [facility] CT Head or Brain w/o Contras ton 11-14-2017 CT Head or Brain w/o Contrast Patient Name: GONZALO LEI CT Exam Date/Time 11/14/2017 04:42:[address] Head or Brain w/o Contrast Ordering Physician JEMIMA NUNEZ Accession Number [id number] CPT4 Codes 45249 () Reason For Exam twitching, possible seizure; in the setting of relative hypotension in hypertensive urgency Report CLINICAL INFORMATION: Respiratory failure. Tremors. Possible seizure disorder. 3 mm axial cuts through the head are obtained without IV contrast. The examination is compared to a previous study dated 09/06/2016. FINDINGS: The ventricles are within normal limits in respect to their size and configuration. There is no evidence of mass or mass-effect. There are no abnormal intra- or extra-axial fluid collections. No hemorrhage is identified. There is moderate cortical atrophy. Patchy low-attenuation is noted within the periventricular, deep, and subcortical white matter. There is no CT evidence of an acute infarct. Bone windows demonstrate no evidence of fracture. Mild inflammatory changes are noted in the right ethmoid air cells. The mastoid air cells are clear. Incidental note is made of cerumen/debris in the left external auditory canal. IMPRESSION: 1. Atrophy and evidence of small-vessel ischemic disease. This is not unusual for patient age. 2. No CT evidence of an acute intracranial process. 3. No significant change from last year's study. Report Dictated on Final Dictated: 11/14/2017 5:05 am Dictating Physician: MD ORELLANA JEFFREY Signed Date and Time: 11/14/2017 5:08 am Signed by: MD ORELLANA JEFFREY Transcribed Date and Time: 11/14/2017 5:05 Normal [facility] CTA Chest w/ + w/o Contrasto n 11-14-2017 CTA Chest w/ + w/o Contrast Patient Name: GONZALO LEI CT Exam Date/Time 11/14/2017 04:51:27 EDT Exam CTA Chest w/ + w/o Contrast Ordering Physician JEMIMA NUNEZ Accession Number [id number] CPT4 Codes 55426 (), Q9967 () Reason For Exam Respi failure, r/o pulmonary embolism Report CLINICAL INFORMATION: Progressive chest pain and shortness of breath. Evaluate for pulmonary embolism. After 75 mL Isovue IV contrast, 1 mm axial cuts through the chest are obtained. 3D reconstructions are performed by me and reviewed simultaneously on the [facility]. Sagittal and coronal reconstructions are also reviewed. The examination is compared to a previous study dated 11/03/2016. FINDINGS: A good contrast bolus is identified within the pulmonary arterial tree. There are no filling defects to suggest pulmonary embolism. The pulmonary arteries are markedly enlarged consistent with chronic pulmonary hypertension. The patient is status post median sternotomy and aortic valve repair. The aortic root remains moderately dilated. 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 This is unchanged. The aortic arch and descending thoracic aorta remain normal in caliber. There is no significant mediastinal lymphadenopathy. An endotracheal tube is in place. This terminates at the kb. An NG tube extends to the gastroesophageal junction. Emphysematous changes are noted diffusely. There are mild bibasilar infiltrates. IMPRESSION: 1. No evidence of pulmonary embolism. 2. COPD with evidence of chronic pulmonary hypertension. 3. Prior aortic valve repair. 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 This is unchanged. 4. Bibasilar infiltrates. 5. Endotracheal tube with its tip to the kb. The enteric tube terminates at the gastroesophageal junction. Report Dictated on Final Dictated: 11/14/2017 5:00 am Dictating Physician: MD ORELLANA JEFFREY Signed Date and Time: 11/14/2017 5:05 am Signed by: MD ORELLANA JEFFREY Transcribed Date and Time: 11/14/2017 5:00 Normal [facility] CULT./ST. RESPIRATORYon 10-0 CULT./ST. RESPIRATORY CULT./ST. RESPIRAT ORY --> Status: FModerate normal respiratory jk.STAIN GRAM --> Status: FMany polymorphonuclear cells/lpf.Moderate epithelial cells/lpf.Moderate gram positive cocci in pairs and chains.Moderate gram positive cocci in clusters.Few gram positive bacilli.Rare gram negative bacilli.Moderate epithelial cells/lpf.Moderate gram positive cocci in pairs and chains.Moderate gram positive cocci in clusters.Few gram positive bacilli.Rare gram negative bacilli. Normal [facility] Comment on above: Order Comment: Speci men Source Comment:Sputum, Suctioned Performed By: #### H EMDF, APTT, PT, BMP3M, MG3, PHOS3, LFT3, CKMBS, LACT3, TROPN, MBF33, DIG3, HA1C2, PCAL ####[facility] [id number] [employer] [place] [address] Digoxinon 11-14-2017 Digoxin mass conc 0.89 ng/mL Normal 0.80-2.00 [facility] Comment on above: Performed By: #### A BG ####[facility] [employer] [place] [address] Echo Complete w/wo Contrasto n 11-14-2017 Echo Complete w/wo Contrast Patient Name: GONZALO LEI Ultrasound Exam Date/Time 11/15/2017 11:37:00 EDT Exam Echo Complete w/wo Contrast Ordering Physician JEMIMA NUNEZ Accession Number [id number] Reason For Exam HFpEF Report TRANSTHORACIC ECHOCARDIOGRAM PATIENT: Gonzalo Lei STUDY DATE: 11/14/2017 : 1935 AGE: 82 HT/WT: 170.2 cm (67 95.3 kg (209.6 in) lb) GENDER: F BP: 129 / 65 LOCATION: [facility] PATIENT Inpatient [facility] STATUS: *ORDERING PHYSICIAN: * Jemima Nunez *READING PHYSICIAN: * Nino *CLINICAL ACCOUNT SPECIALIST: * Aimee Edmondson RDCS, MD Simone AE --- INDICATIONS: HFpEF. --- CONCLUSIONS SUMMARY: 1. Left ventricle: The cavity size is normal. Wall thickness is mildly increased. Systolic function is normal. The estimated ejection fraction is 61%. Features are consistent with a pseudonormal left ventricular filling pattern, with concomitant abnormal relaxation and increased filling pressure (grade 2 diastolic dysfunction). But this criteria is borderline for the current study. Clinical correlation is recommended. 2. Right ventricle: Right ventricular systolic pressure is mildly to moderately increased. RV systolic pressure (S, est): 49 mm Hg. 3. Left atrium: The atrium is mildly dilated. By visual assessment. 4. Right atrium: Central venous pressure (est): 8 mm Hg. 5. Mitral valve: There is trivial, less than 1+ regurgitation. 6. Aortic valve: Not well visualized. A bioprosthesis is present, by report, placed at [facility]. Size and type unknown. Valve function is normal. There is no regurgitation. There is no significant perivalvular regurgitation. Mean gradient (S): 12 mm Hg. Dimensionless index: 0.45. Valve area (VTI): 1.2 cm2. RECOMMENDATIONS: Clinical correlation with prior findings for AV function is recommended. --- STUDY DATA: Complete transthoracic echocardiogram. Procedure: Image quality was adequate. M-mode, complete 2D, complete spectral Doppler, and color flow Doppler images were acquired and archived for permanent storage and are available for subsequent review. Study status: Routine. Patient status: Inpatient. --- FINDINGS LEFT VENTRICLE: The cavity size is normal. Wall thickness is mildly increased. Systolic function is normal. The estimated ejection fraction is 61%. There are no regional wall motion abnormalities. There is a borderline abnormality in the ratio of early to atrial left ventricular filling. The tissue Doppler parameters are abnormal. Features are consistent with a pseudonormal left ventricular filling pattern, with concomitant abnormal relaxation and increased filling pressure (grade 2 diastolic dysfunction). But this criteria is borderline for the current study. Clinical correlation is recommended. E/e' average: 13.9 RIGHT VENTRICLE: The cavity size is mildly dilated. Systolic function is normal by visual assessment. Right ventricular systolic pressure is mildly to moderately increased. VENTRICULAR SEPTUM: There is no evidence of a ventricular septal defect. LEFT ATRIUM: The atrium is mildly dilated. By visual assessment. RIGHT ATRIUM: The atrium is normal in size. ATRIAL SEPTUM: Color Doppler shows no evidence of shunt. MITRAL VALVE: Mildly calcified annulus. Mildly thickened leaflets. Doppler: There is trivial, less than 1+ regurgitation. Peak gradient (D): 2 mm Hg. AORTIC VALVE: Not well visualized. A bioprosthesis is present, by report, placed at [facility]. Size and type unknown. Doppler: There is no regurgitation. There is no significant perivalvular regurgitation. Dimensionless index: 0.45. Valve area (VTI): 1.2 cm2. Indexed valve area (VTI): 0.5 cm2/m2. Mean gradient (S): 12 mm Hg. Peak gradient (S): 24 mm Hg. Peak velocity (S): 2.4 m/sec. TRICUSPID VALVE: Structurally normal valve. Doppler: There is trivial, less than 1+ regurgitation. PULMONIC VALVE: Structurally normal valve. Doppler: There is trivial, less than 1+ regurgitation. AORTA: Aortic root: The aortic root is mildly dilated. Ascending aorta: The ascending aorta is trivially dilated. PULMONARY ARTERY: Main pulmonary artery: Normal. PERICARDIUM: A prominent pericardial fat pad is present. There is no pericardial effusion. SYSTEMIC VEINS: Inferior vena cava: The vessel is mildly dilated. The IVC collapses by greater than 50% with inspiration. --- Measurements Left ventricle Value 11/03/2016 Reference LV ID, ED (L) 3.4 cm 5.7 3.9 - 5.3 LV ID, ES 2.9 cm 5.0 ------- -- LV PW thickness, ED (H) 1.4 cm 1.0 0.6 - 0.9 LV end-diastolic volume, 1-p A4C 83 ml 56 - 104 LV end-systolic volume, 1-p A4C 39 ml 19 - 49 LV end-diastolic volume, 2-p 77 ml 125 56 - 104 LV end-systolic volume, 2-p 30 ml 45 19 - 49 LV ejection fraction, 2-p 61 % 64 >= 55 LV E/e', lateral 10.3 14.1 ------- -- LV E/e', medial 21.8 15.7 ------- -- LV E/e', average 13.9 14.8 ------- -- Ventricular septum Value 11/03/2016 Reference IVS thickness, ED (H) 1.3 cm 0.7 0.6 - 0.9 LVOT Value 11/03/2016 Reference LVOT ID, A-P 1.8 cm 2.2 ------- -- LVOT mean velocity, S 0.7 m/sec 0.7 ------- -- LVOT VTI, S 22.0 cm 24.2 ------- -- LVOT peak gradient, S 4 mm Hg 5 ------- -- Stroke volume (SV), LVOT DP 58 ml 91 ------- -- Stroke index (SV/bsa), LVOT DP 27 ml/m2 42 -------- - Aortic valve Value 11/03/2016 Reference Aortic valve peak velocity, S 2.4 m/sec ------- -- Aortic valve mean velocity, S 1.5 m/sec ------- -- Aortic valve VTI, S 49.5 cm ------- -- Aortic mean gradient, S 12 mm Hg ------- -- Aortic peak gradient, S 24 mm Hg ------- -- DI 0.45 ------- -- Aortic valve area, VTI 1.2 cm2 -------- - Aortic valve area/bsa, VTI 0.5 cm2/m2 --------- Aorta Value 11/03/2016 Reference Aortic root ID 3.8 cm 3.6 <4.3 Aortic root ID, STJ, ED 3.1 cm 3.5 ------- -- Ascending aorta ID, A-P 3.7 cm 3.6 ------- -- Ascending aorta ID, A-P, S 3.7 cm 3.6 ------- -- Left atrium Value 11/03/2016 Reference LA volume/bsa, ES, 2-p 30 ml/m2 20 -------- - Mitral valve Value 11/03/2016 Reference Mitral E-wave peak velocity 0.7 m/sec 0.4 ------- -- Mitral A-wave peak velocity 1 m/sec 1 ------- -- Mitral deceleration time 285 ms 166 ------- -- Mitral peak gradient, D 2 mm Hg 5 ------- -- Mitral E/A ratio, peak 0.8 0.5 ------- -- Pulmonary arteries Value 11/03/2016 Reference PA pressure, S, DP 49 mm Hg ------- -- Tricuspid valve Value 11/03/2016 Reference Tricuspid regurg peak velocity 3.2 m/sec 3.1 ------- -- Tricuspid peak RV-RA gradient 41 mm Hg 38 ------- -- Right atrium Value 11/03/2016 Reference RA area, ES, A4C 14 cm2 19 10 - 18 Systemic veins Value 11/03/2016 Reference Estimated RAP 8 mm Hg 3 ------- -- Right ventricle Value 11/03/2016 Reference RV ID, minor axis, ED, A4C base 3.4 cm 3.3 2.4 - 4.2 RV ID, minor axis, ED, A4C mid (H) 4.2 cm 3.0 2.0 - 3.5 TAPSE 0.8 cm 1.8 ------- -- RV pressure, S, DP 49 mm Hg 41 ------- -- RV s', lateral, S 0.09 m/sec 0.17 ------- -- Legend: (L) and (H) alex values outside specified reference range. Electronically signed by Nino Nichols MD 11/14/2017 16:14 Final Dictated: 11/15/2017 11:51 am Dictating Physician: MD NICHOLS STEPHEN A Signed Date and Time: 11/14/2017 4:14 pm Signed by: MD NICHOLS STEPHEN A Normal [facility] Glucose,Bedsideon 11-14-2017 Glucose mass conc 76 mg/dL Normal 70-100 [facility] Comment on above: Result Comment: Test performed by glucose meter. Results may be 10%-15% lowerthan serum/plasma values. (CLIA ID [id number]) Performed By: #### B GLU ####[id number] [place] [address] Glucose mass conc 173 mg/dL High 70-100 [facility] Comment on above: Result Comment: Test performed by glucose meter. Results may be 10%-15% lowerthan serum/plasma values. (CLIA ID [id number]) Performed By: #### B GLU ####[id number] [employer] [place] [address] Glucose mass conc 249 mg/dL High 70-100 [facility] Comment on above: Result Comment: Test performed by glucose meter. Results may be 10%-15% lowerthan serum/plasma values. (CLIA ID [id number]) Performed By: #### B GLU ####[id number] [place], [place] Glucose mass conc 245 mg/dL High 70-100 [facility] Comment on above: Result Comment: Test performed by glucose meter. Results may be 10%-15% lowerthan serum/plasma values. (CLIA ID [id number]) Performed By: #### B GLU ####[address] Hemoglobin A1Con 11-14-2017 Glucose mass conc 131 mg/dL Normal [facility] Comment on above: Performed By: #### A BG ####[address] Hemoglobin A1c/Hemoglobin.total mass fraction (Bld) 6.2 % High 4.0-5.7 [facility] Comment on above: Result Comment: --Hg bA1C levels may not be accurate in patients who haverenal disease, received recent blood transfusions, are anemic,or who have dyshemoglobinemia. Performed By: #### A BG ####[address] Hemogram w/ Autodiffon 11-14 Abs Baso Cnt 0.0 10*3/uL Normal 0.0-0.2 [facility] Comment on above: Performed By: #### H EMDF, APTT, PT, BMP3M, MG3, PHOS3, LFT3, CKMBS, LACT3, TROPN, MBF33, DIG3, HA1C2, PCAL ####[address] Abs Neutrophile Cnt 12.0 10*3/uL High 1.8-7.0 [facility] Comment on above: Performed By: #### H EMDF, APTT, PT, BMP3M, MG3, PHOS3, LFT3, CKMBS, LACT3, TROPN, MBF33, DIG3, HA1C2, PCAL ####[address] Basophils/100 WBC Auto (Bld) 0.3 % Normal 0.0-2.0 [facility] Comment on above: Performed By: #### H EMDF, APTT, PT, BMP3M, MG3, PHOS3, LFT3, CKMBS, LACT3, TROPN, MBF33, DIG3, HA1C2, PCAL ####[address] Eosinophils Auto #/vol (Bld) 0.0 10*3/uL Normal 0.0-0.5 [facility] Comment on above: Performed By: #### H EMDF, APTT, PT, BMP3M, MG3, PHOS3, LFT3, CKMBS, LACT3, TROPN, MBF33, DIG3, HA1C2, PCAL ####[address] Eosinophils/100 WBC Auto (Bld) 0.0 % Low 1.0-6.0 [facility] Comment on above: Performed By: #### H EMDF, APTT, PT, BMP3M, MG3, PHOS3, LFT3, CKMBS, LACT3, TROPN, MBF33, DIG3, HA1C2, PCAL ####[address] Erythrocyte distribution width Auto Ratio (RBC) 17.5 % High 11.5-14.5 [facility] Comment on above: Performed By: #### H EMDF, APTT, PT, BMP3M, MG3, PHOS3, LFT3, CKMBS, LACT3, TROPN, MBF33, DIG3, HA1C2, PCAL ####[address] Granulocytes/100 WBC (Bld) 88.0 % High 40.0-80.0 [facility] Comment on above: Performed By: #### H EMDF, APTT, PT, BMP3M, MG3, PHOS3, LFT3, CKMBS, LACT3, TROPN, MBF33, DIG3, HA1C2, PCAL ####[address] Hematocrit Auto Volume Fraction (Bld) 42.9 % Normal 35.0-47.0 [facility] Comment on above: Performed By: #### H EMDF, APTT, PT, BMP3M, MG3, PHOS3, LFT3, CKMBS, LACT3, TROPN, MBF33, DIG3, HA1C2, PCAL ####[address] Hemoglobin mass conc (Bld) 14.0 g/dL Normal 11.7-16.0 [facility] Comment on above: Performed By: #### H EMDF, APTT, PT, BMP3M, MG3, PHOS3, LFT3, CKMBS, LACT3, TROPN, MBF33, DIG3, HA1C2, PCAL ####[address] Lymphocytes Auto #/vol (Bld) 0.8 10*3/uL Low 1.0-4.3 [facility] Comment on above: Performed By: #### H EMDF, APTT, PT, BMP3M, MG3, PHOS3, LFT3, CKMBS, LACT3, TROPN, MBF33, DIG3, HA1C2, PCAL ####[address] Lymphocytes/100 WBC Auto (Bld) 5.7 % Low 20.0-40.0 [facility] Comment on above: Performed By: #### H EMDF, APTT, PT, BMP3M, MG3, PHOS3, LFT3, CKMBS, LACT3, TROPN, MBF33, DIG3, HA1C2, PCAL ####[address] MCH Auto Entitic mass (RBC) 29.4 pg Normal 26.0-34.0 [facility] Comment on above: Performed By: #### H EMDF, APTT, PT, BMP3M, MG3, PHOS3, LFT3, CKMBS, LACT3, TROPN, MBF33, DIG3, HA1C2, PCAL ####[id number] [place], [place] MCHC Auto mass conc (RBC) 32.7 % Normal 32.0-36.0 [facility] Comment on above: Performed By: #### H EMDF, APTT, PT, BMP3M, MG3, PHOS3, LFT3, CKMBS, LACT3, TROPN, MBF33, DIG3, HA1C2, PCAL ####[address] MCV Auto Entitic volume (RBC) 90.1 fL Normal 79.0-98.0 [facility] Comment on above: Performed By: #### H EMDF, APTT, PT, BMP3M, MG3, PHOS3, LFT3, CKMBS, LACT3, TROPN, MBF33, DIG3, HA1C2, PCAL ####[address] Monocytes Auto #/vol (Bld) 0.8 10*3/uL Normal 0.0-0.8 [facility] Comment on above: Performed By: #### H EMDF, APTT, PT, BMP3M, MG3, PHOS3, LFT3, CKMBS, LACT3, TROPN, MBF33, DIG3, HA1C2, PCAL ####[address] Monocytes/100 WBC Auto (Bld) 6.0 % Normal 2.0-10.0 [facility] Comment on above: Performed By: #### H EMDF, APTT, PT, BMP3M, MG3, PHOS3, LFT3, CKMBS, LACT3, TROPN, MBF33, DIG3, HA1C2, PCAL ####[address] Platelet mean volume Auto Entitic volume (Bld) 10.3 fL Normal 7.4-10.4 [facility] Comment on above: Performed By: #### H EMDF, APTT, PT, BMP3M, MG3, PHOS3, LFT3, CKMBS, LACT3, TROPN, MBF33, DIG3, HA1C2, PCAL ####[address] [place], [place] Platelets Auto #/vol (Bld) 189 10*3/uL Normal 140-440 [facility] Comment on above: Performed By: #### H EMDF, APTT, PT, BMP3M, MG3, PHOS3, LFT3, CKMBS, LACT3, TROPN, MBF33, DIG3, HA1C2, PCAL ####[address] [place], [place] RBC Auto #/vol (Bld) 4.76 10*6/uL Normal 3.80-5.20 [facility] Comment on above: Performed By: #### H EMDF, APTT, PT, BMP3M, MG3, PHOS3, LFT3, CKMBS, LACT3, TROPN, MBF33, DIG3, HA1C2, PCAL ####[address] [place], [place] WBC Auto #/vol (Bld) 13.6 10*3/uL High 3.6-10.7 [facility] Comment on above: Performed By: #### H EMDF, APTT, PT, BMP3M, MG3, PHOS3, LFT3, CKMBS, LACT3, TROPN, MBF33, DIG3, HA1C2, PCAL ####[address] [place], [place] Hepatic Functionon 8 ALP enzyme act/vol 81 U/L Normal 38-126 [facility] Comment on above: Performed By: #### A BG ####[address] [place], [place] ALT enzyme act/vol 38 U/L Normal 13-69 [facility] Comment on above: Performed By: #### A BG ####[address] [place] [place], [place] AST enzyme act/vol 53 U/L High 15 [facility] Comment on above: Performed By: #### A BG ####[address] [place], [place] Bilirubin mass conc 0.5 mg/dL Normal 0.2-1.3 [facility] Comment on above: Performed By: #### A BG ####[address] [place], [place] Protein mass conc 7.0 g/dL Normal 6.3-8.2 [facility] Comment on above: Performed By: #### A BG ####[address] [address] [place], [place] Bilirubin.direct mass conc 0.0 mg/dL Normal 0.0-0.3 [facility] Comment on above: Performed By: #### A BG ####[address] [place], [place] Albumin mass conc 4.3 g/dL Normal 3.5-5.0 [facility] Comment on above: Performed By: #### A BG ####[id number] [place], [place] LEGIONELLA AG, URINEon 11-14 LEGIONELLA AG, URINE LEGIONELLA AG, URIN E --> Status: F Legionella antigen NOT DETECTED. Normal [facility] Comment on above: Order Comment: Speci men Source Comment:Urine, clean catch Performed By: #### L EGUR, SPAUR ####[id number] [place], [place] Lactic Acidon 11-14-2017 Lactate molar conc 1.4 mmol/L Normal 0.7-2.0 [facility] Comment on above: Performed By: #### C KMBS, MG3, K3, TROPN, MBF33, LACT3 ####[address] [place], [place] Lactate molar conc 3.4 mmol/L Critically high 0.7-2.0 [facility] Comment on above: Result Comment: Repe ated Performed By: #### L ACT3 ####[address] [place], [place] Lactate molar conc 5.5 mmol/L Critically high 0.7-2.0 [facility] Comment on above: Result Comment: Repe ated Performed By: #### A BG ####[address] [place], [place] Magnesiumon 11-14-2017 Magnesium mass conc 2.7 mg/dL High 1.6-2.3 [facility] Comment on above: Performed By: #### C KMBS, MG3, K3, TROPN, MBF33, LACT3 ####[address] [place], [place] Magnesium mass conc 1.5 mg/dL Low 1.6-2.3 [facility] Comment on above: Performed By: #### H EMDF, APTT, PT, BMP3M, MG3, PHOS3, LFT3, CKMBS, LACT3, TROPN, MBF33, DIG3, HA1C2, PCAL ####[id number] [place], [place] Phosphoruson 11-14-2017 Phosphate mass conc 4.0 mg/dL Normal 2.5-4.5 [facility] Comment on above: Performed By: #### H EMDF, APTT, PT, BMP3M, MG3, PHOS3, LFT3, CKMBS, LACT3, TROPN, MBF33, DIG3, HA1C2, PCAL ####[address] [place], [place] Potassiumon 11-14-2017 Potassium molar conc 5.0 mmol/L Normal 3.5-5.1 [facility] Comment on above: Performed By: #### C KMBS, K3, TROPN, MBF33, LACT3 ####[address] [place], [place] Potassium molar conc 4.6 mmol/L Normal 3.5-5.1 [facility] Comment on above: Performed By: #### C KMBS, MG3, K3, TROPN, MBF33, LACT3 ####[address] Procalcitoninon 11-14-2017 Protein mass conc g/dL Normal <0.10 [facility] Comment on above: Performed By: #### A BG ####[address] Interpretation See Below Normal [facility] Comment on above: Result Comment: PCT <0.50 = Low risk of severe sepsis and/or septic shock.PCT >2.00 = High risk of severe sepsis and/or septic shock. Performed By: #### A BG ####[address] Prothrombin Timeon 8 INR Coag RelTime (PPP) 0.9 Normal 0.9-1.1 [facility] Comment on above: Result Comment: Tarun mmended Anticoagulant Therapy: SEE BELOW----- INR of 2.0 - 3.0 : - Prophylaxis of Venous Thrombosis (high-risk surgery) - Treatment of Venous Thrombosis - Treatment of Pulmonary Embolism (Includes tissue heart valves, Acute Myocardial Infarction to prevent systemic embolism, Valvular Heart Disease, and Atrial Fibrillation)----- INR of 2.5 - 3.5 : - Mechanical Prosthetic Valves (high risk) - If oral anticoagulant therapy is used to prevent Myocardial Infarction Performed By: #### H EMDF, APTT, PT, BMP3M, MG3, PHOS3, LFT3, CKMBS, LACT3, TROPN, MBF33, DIG3, HA1C2, PCAL ####[address] [place], [place] Prothrombin time (PT) Coag time (PPP) 9.9 s Normal 9.0-12.0 [facility] Comment on above: Result Comment: . Performed By: #### H EMDF, APTT, PT, BMP3M, MG3, PHOS3, LFT3, CKMBS, LACT3, TROPN, MBF33, DIG3, HA1C2, PCAL ####[facility] [id number] [place] [address] RESPIRATORY PCR PANELon RESPIRATORY PCR PANEL RESPIRATORY PCR PA COLLEEN --> Status: FNEGATIVE: No targets were detected by the [employer] UpperRespiratory Pathogens PCR Panel.The [employer] Upper Respiratory Pathogens PCR Panel detects thefollowing targets:AdenovirusCoronavi emily 229ECoronavirus WDR9Bfpqxawavvx TA17Wbteacbkcgz ID60Hchyw MetapneumovirusHuman Rhinovirus/EnterovirusInfl uenza AInfluenza BParainfluenza Virus 1Parainfluenza Virus 2Parainfluenza Virus 3Parainfluenza Virus 4Respiratory Syncytial VirusBordetella pertussisBordetella parapertussisChlamydia pneumoniaeMycoplasma pneumoniaeRespiratory Pathogens PCR Panel.The [employer] Upper Respiratory Pathogens PCR Panel detects thefollowing targets:AdenovirusCoronavi emily 229ECoronavirus LJQ2Icgxlhzqtcm VA36Wfpditwvdtu GP14Erjzb MetapneumovirusHuman Rhinovirus/EnterovirusInfl uenza AInfluenza BParainfluenza Virus 1Parainfluenza Virus 2Parainfluenza Virus 3Parainfluenza Virus 4Respiratory Syncytial VirusBordetella pertussisBordetella parapertussisChlamydia pneumoniaeMycoplasma pneumoniae Normal [facility] Comment on above: Order Comment: Speci men Source Comment:Nasopharyngeal Performed By: #### R ESBF ####[facility] [address] [place] [address] STREP PNEUMO ANTIGEN, URINEo n 11-14-2017 STREP PNEUMO ANTIGEN, URINE STREP PNEUMO ANTIGEN, URINE --> Status: F Strep pneumo antigen NOT DETECTED. Normal [facility] Comment on above: Order Comment: Speci men Source Comment:Urine, clean catch Performed By: #### L CARINE RODRIGUEZ ####[facility] [address] [place] [address] Troponin Ion 11-14-2017 Troponin I.cardiac mass conc 0.303 ng/mL High 0.000-0.034 [facility] Comment on above: Result Comment: 0.04 6 - 0.400 = Indeterminate> 0.400 = Consider Myocardial Injury Performed By: #### C KMBS, K3, TROPN, MBF33, LACT3 ####[facility] [id number] [place] [address] Troponin I.cardiac mass conc 0.377 ng/mL High 0.000-0.034 [facility] Comment on above: Result Comment: 0.04 6 - 0.400 = Indeterminate> 0.400 = Consider Myocardial Injury Performed By: #### C KMBS, MG3, K3, TROPN, MBF33, LACT3 ####[facility] [id number] [place] [address] Troponin I.cardiac mass conc 0.347 ng/mL High 0.000-0.034 [facility] Comment on above: Result Comment: 0.04 6 - 0.400 = Indeterminate> 0.400 = Consider Myocardial Injury Performed By: #### A BG ####[facility] [address] [address] VL Venous Duplex US Lower Ex t Bilateralon 11-14-2017 VL Venous Duplex US Lower Ext Bilateral Patient Name: GONZALO LEI Ultrasound Exam Date/Time 11/14/2017 13:50:52 EDT Exam VL Venous Duplex US Lower Ext Bilateral Ordering Physician JEMIMA NUNEZ Accession Number [id number] CPT4 Codes 89030 () Reason For Exam check for DVT Report [facility] --- Lower Extremity Venous Duplex Report Patient Name: Gonzalo Lei : 1935 Study Date: 11/14/2017 (82yrs) Age: 82 Account: [id number] Gender: F Loc: [facility] BP: Ordering: Jemima Nunez Technologist: Ordering Physician: Jemima Nunez Atomic Physics Professor: Isatu Damon RVT, [facility] Interpreting Physician: Chris Livingston MD --- Location: [facility] --- INDICATIONS: bilateral entire leg edema. --- CONCLUSIONS 1. This is a normal study. --- IMPRESSIONS: - This is a normal study. - These findings are negative for deep or superficial vein thrombosis in the bilateral lower extremities. --- STUDY DATA: Complete lower extremity venous duplex evaluation. Birthdate: Patient birthdate: 1935. Age: Patient is 82 yr old. Sex: Gender: female. Ethnicity: Ethnicity: white. Doppler flow study including spectral analysis, color and beck scale imaging. Patient status: Inpatient. Procedure: A vascular evaluation was performed. The images were obtained using a [employer]ark E9 vascular ultrasound machine. The study was technically limited due to edema and patient very tender to the touch. --- VENOUS FLOW AND IMAGING: + + -------+ ---------+ --+ !Location !Overall!Flow properties !Comments ! + + -------+ ---------+ --+ !Right common femoral !Patent !Normal phasicity; ! --! ! ! !spontaneous; normal ! ! ! ! !augmentation; compressible ! ! + + -------+ ---------+ --+ !Right saphenofemoral !Patent !Compressible ! --! !junction ! ! ! ! + + -------+ ---------+ --+ !Right profunda femoral !Patent !Normal phasicity; ! --! ! ! !spontaneous; normal ! ! ! ! !augmentation ! ! + + -------+ ---------+ --+ !R femoral proximal !Patent !Compressible ! --! + + -------+ ---------+ --+ !R femoral mid !Patent !Normal phasicity; ! --! ! ! !spontaneous; normal ! ! ! ! !augmentation; compressible ! ! + + -------+ ---------+ --+ !R femoral distal !Patent !Compressible ! --! + + -------+ ---------+ --+ !Right popliteal !Patent !Normal phasicity; ! --! ! ! !spontaneous; normal ! ! ! ! !augmentation; compressible ! ! + + -------+ ---------+ --+ !Right gastrocnemius !Patent !Compressible ! --! + + -------+ ---------+ --+ !Right posterior tibial !Patent !Compressible !sub-op. ! + + -------+ ---------+ --+ !Right peroneal !Patent !Compressible !sub-op. ! + + -------+ ---------+ --+ !Right soleal !-------! !not visualized.! + + -------+ ---------+ --+ !Right greater saphenous !Patent !Compressible ! --! + + -------+ ---------+ --+ !Left common femoral !Patent !Normal phasicity; ! --! ! ! !spontaneous; normal ! ! ! ! !augmentation; compressible ! ! + + -------+ ---------+ --+ !Left saphenofemoral !Patent !Compressible ! --! !junction ! ! ! ! + + -------+ ---------+ --+ !Left profunda femoral !Patent !Normal phasicity; ! --! ! ! !spontaneous; normal ! ! ! ! !augmentation ! ! + + -------+ ---------+ --+ !L femoral proximal !Patent !Compressible ! --! + + -------+ ---------+ --+ !L femoral mid !Patent !Normal phasicity; ! --! ! ! !spontaneous; normal ! ! ! ! !augmentation; compressible ! ! + + -------+ ---------+ --+ !L femoral distal !Patent !Compressible ! --! + + -------+ ---------+ --+ !Left popliteal !Patent !Normal phasicity; ! --! ! ! !spontaneous; normal ! ! ! ! !augmentation; compressible ! ! + + -------+ ---------+ --+ !Left gastrocnemius !Patent !Compressible ! --! + + -------+ ---------+ --+ !Left posterior tibial !Patent !Compressible !sub-op. ! + + -------+ ---------+ --+ !Left peroneal !Patent !Compressible !sub-op. ! + + -------+ ---------+ --+ !Left soleal !-------! !not visualized.! + + -------+ ---------+ --+ !Left greater saphenous !Patent !Compressible ! --! + + -------+ ---------+ --+ Electronically signed by: Chris Livingston MD [id number] Final Dictated: 11/14/2017 4:50 pm Dictating Physician: CHRIS LIVINGSTON Signed Date and Time: 11/14/2017 4:50 pm Signed by: CHRIS LIVINGSTON [facility] CR Chest PA/LATon 09-05-2016 CR Chest PA/LAT Patient Name: GONZALO LEI Diagnostic Radiology Exam Date/Time 09/05/2016 18:48:21 EDT Exam CR Chest PA/LAT Ordering Physician MD CASTORENA ORION J Accession Number [id number] CPT4 Codes 76989 () Reason For Exam coughing Report Reason for examination: Burning in throat, cough and shortness of breath x2-3 days at. PA and lateral views of the chest are performed. Comparison is dated 06/15/2016. The trachea deviates slightly to the right of midline at the level of the aortic arch, unchanged. The mediastinal silhouette is stable. The heart is enlarged. There is an air-fluid level noted in the retrocardiac region presumably representing a large hiatal hernia. No confluent infiltrates, significant pleural effusion or pneumothorax is seen. 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 IMPRESSION: Suspect large hiatal hernia containing an air-fluid level. No acute cardiopulmonary process. Report Dictated on Final Dictating Physician: MD MCKEON LAUREN B Signed Date and Time: 09/05/2016 7:00 pm Signed by: MD MCKEON LAUREN B Transcribed Date and Time: 09/05/2016 7:01 [facility] CULTURE GRP.A. STREP.on 08-09 CULTURE GRP.A. STREP. [facility] Patient name: GONZALO LEI M.R.N.: [id number] : 1935 Age: 80 Sex: F Ord. Physician: SHAQUILLE CASTORENA Location: [place] [address] Copy to: SHAQUILLE CASTORENA DISCHARGED: 09/05/16 Adm. Date: 09/05/16 MICROBIOLOGYORDER#: [id number] COLLECTED: 09/05/16 18:06SOURCE: Throat RECEIVED: 09/05/16 18:29CULTURE GRP.A. STREP. FINAL 09/08/16 07:30009/08/16No beta streptococcus Group A isolated. Normal [facility] Comment on above: Performed By: #### C /SGA ####[place] [address] No Panel Information SARS-CoV-2 & FLU Antigen (Rapid) [facility] Work Phone: Vital Signs Date Time Vital Sign Value Performing Clinician Facility 07-25-2024 13:04-0400 Body height 154.94 cm LUIZ KELLI SHANK FAKER-C Work Phone: [facility] 07-25-2024 13:04-0400 Body mass index (BMI) [Ratio] 39.4 kg/m2 LUIZ KELLI SHANK FAKER-C Work Phone: [facility] 07-25-2024 13:04-0400 Body weight 94.8 kg LUIZ KELLI SHANK FAKER-C Work Phone: [facility] 07-25-2024 13:04-0400 Heart rate 70 /min LUIZ KELLI SHANK FAKER-C Work Phone: [facility] 07-25-2024 13:04-0400 Respiratory rate 18 /min LUIZ KELLI SHANK FAKER-C Work Phone: [facility] 07-25-2024 13:04-0400 SaO2% (BldA) [Mass fraction] 97 % LUIZ KELLI SHANK FAKER-C Work Phone: [facility] 05-08-2024 13:25-0400 Diastolic blood pressure 78 mm[Hg] Chandler Benjamin MD Work Phone: [facility] 05-08-2024 13:25-0400 Heart rate 68 /min Chandler Benjamin MD Work Phone: [facility] 05-08-2024 13:25-0400 Respiratory rate 14 /min Chandler Benjamin MD Work Phone: [facility] 05-08-2024 13:25-0400 SaO2% (BldA) [Mass fraction] 97 % Chandler Benjamin MD Work Phone: [facility] 05-08-2024 13:25-0400 Systolic blood pressure 145 mm[Hg] Chandler Benjamin MD Work Phone: [facility] 05-08-2024 10:04-0400 Body mass index (BMI) [Ratio] 41.57 kg/m2 Chandler Benjamin MD Work Phone: [facility] 05-08-2024 10:04-0400 Body temperature 97.59 [degF] Chandler Benjamin MD Work Phone: [facility] 05-08-2024 10:04-0400 Body weight 99.79 kg Chandler Benjamin MD Work Phone: [facility] 04-09-2024 19:22-0500 Diastolic blood pressure 82 mm[Hg] Ender Atkins MD Work Phone: [facility] 04-09-2024 19:22-0500 Heart rate 81 /min Ender Atkins MD Work Phone: [facility] 04-09-2024 19:22-0500 Respiratory rate 18 /min Ender Atkins MD Work Phone: [facility] 04-09-2024 19:22-0500 SaO2% (BldA) [Mass fraction] 97 % Ender Atkins MD Work Phone: [facility] 04-09-2024 19:22-0500 Systolic blood pressure 152 mm[Hg] Ender Atkins MD Work Phone: [facility] 04-09-2024 17:34-0500 Body temperature 98.2 [degF] Ender Atkins MD Work Phone: [facility] 04-09-2024 17:32-0500 Body height 154.9 cm Ender Atkins MD Work Phone: [facility] 04-09-2024 17:32-0500 Body mass index (BMI) [Ratio] 41.57 kg/m2 Ender Atknis MD Work Phone: [facility] 04-09-2024 17:32-0500 Body weight 99.79 kg Ender Atkins MD Work Phone: [facility] 08-21-2023 10:20-0400 Diastolic blood pressure 91 mm[Hg] Janet Macias MD Work Phone: [facility] 08-21-2023 10:20-0400 Heart rate 90 /min Janet Macias MD Work Phone: [facility] 08-21-2023 10:20-0400 Respiratory rate 14 /min Janet Macias MD Work Phone: [facility] 08-21-2023 10:20-0400 SaO2% (BldA) [Mass fraction] 98 % Janet Macias MD Work Phone: [facility] 08-21-2023 10:20-0400 Systolic blood pressure 140 mm[Hg] Janet Macias MD Work Phone: [facility] 08-21-2023 08:43-0400 Body height 152.4 cm Janet Macias MD Work Phone: [facility] 08-21-2023 08:43-0400 Body mass index (BMI) [Ratio] 42.97 kg/m2 Janet Macias MD Work Phone: [facility] 08-21-2023 08:43-0400 Body temperature 97.9 [degF] Janet Macias MD Work Phone: [facility] 08-21-2023 08:43-0400 Body weight 99.79 kg Janet Macias MD Work Phone: [facility] 07-28-2023 13:05-0400 Body height 167.6 cm NELY PEREZ DO [facility] 07-28-2023 13:05-0400 Body temperature 97.34 [degF] NELY PEREZ DO [facility] 07-28-2023 13:05-0400 Body weight 90.9 kg NELY PEREZ DO [facility] 07-28-2023 13:05-0400 Diastolic Blood Pressure Non-Invasive 92 mm[Hg] NELY PEREZ DO [facility] 07-28-2023 13:05-0400 Heart rate 84 /min NELY PEREZ DO [facility] 07-28-2023 13:05-0400 Respiratory rate 20 /min NELY PEREZ DO [facility] 07-28-2023 13:05-0400 Systolic Blood Pressure Non-Invasive 164 mm[Hg] NELY PEREZ DO [facility] 05-19-2023 03:00-0400 Body temperature 97.8 [degF] DO [facility] 05-19-2023 03:00-0400 Diastolic blood pressure 87 mm[Hg] DO [facility] 05-19-2023 03:00-0400 Heart rate 79 /min DO [facility] 05-19-2023 03:00-0400 Respiratory rate 18 /min DO [facility] 05-19-2023 03:00-0400 SaO2% (BldA) [Mass fraction] 99 % DO [facility] 05-19-2023 03:00-0400 Systolic blood pressure 156 mm[Hg] DO [facility] 05-19-2023 01:00-0400 Inhaled oxygen flow rate 2 L/min DO [facility] 05-18-2023 21:00-0400 Body height 154.94 cm DO [facility] 05-14-2023 16:28-0400 Body mass index (BMI) [Ratio] 39.11 kg/m2 Shawn Duvall MD Work Phone: [facility] 05-14-2023 16:28-0400 Body temperature 98.71 [degF] Shawn Duvall MD Work Phone: [facility] 05-14-2023 16:28-0400 Body weight 93.89 kg Shawn Duvall MD Work Phone: [facility] 05-14-2023 16:28-0400 Diastolic blood pressure 82 mm[Hg] Shawn Duvall MD Work Phone: [facility] 05-14-2023 16:28-0400 Heart rate 76 /min Shawn Duvall MD Work Phone: [facility] 05-14-2023 16:28-0400 Respiratory rate 16 /min Shawn Duvall MD Work Phone: [facility] 05-14-2023 16:28-0400 SaO2% (BldA) [Mass fraction] 98 % Shawn Duvall MD Work Phone: [facility] 05-14-2023 16:28-0400 Systolic blood pressure 164 mm[Hg] Shawn Duvall MD Work Phone: [facility] 02-23-2023 18:55-0500 Diastolic blood pressure 91 mm[Hg] DO [facility] 02-23-2023 18:55-0500 Heart rate 61 /min DO [facility] 02-23-2023 18:55-0500 Respiratory rate 16 /min DO [facility] 02-23-2023 18:55-0500 SaO2% (BldA) [Mass fraction] 99 % DO [facility] 02-23-2023 18:55-0500 Systolic blood pressure 153 mm[Hg] DO [facility] 02-23-2023 16:16-0500 Body height 154.94 cm DO [facility] 02-23-2023 16:16-0500 Body mass index (BMI) [Ratio] 44.9 kg/m2 DO [facility] 02-23-2023 16:16-0500 Body temperature 97.4 [degF] DO [facility] 02-23-2023 16:16-0500 Body weight 107.8 kg DO [facility] 01-28-2023 10:58-0500 Body mass index (BMI) [Ratio] 40.8 kg/m2 DO [facility] 01-28-2023 10:58-0500 Body weight 97.97 kg DO [facility] 01-28-2023 10:58-0500 Diastolic blood pressure 76 mm[Hg] DO [facility] 01-28-2023 10:58-0500 Heart rate 68 /min DO [facility] 01-28-2023 10:58-0500 Respiratory rate 18 /min DO [facility] 01-28-2023 10:58-0500 Systolic blood pressure 137 mm[Hg] DO [facility] 12-27-2022 11:24-0500 Body temperature 97.7 [degF] Marek Casatno DO Work Phone: [facility] 12-27-2022 11:24-0500 Diastolic blood pressure 78 mm[Hg] Marek Castano DO Work Phone: [facility] 12-27-2022 11:24-0500 Heart rate 81 /min Marek Castano DO Work Phone: [facility] 12-27-2022 11:24-0500 Respiratory rate 20 /min Marek Castano DO Work Phone: [facility] 12-27-2022 11:24-0500 SaO2% (BldA) [Mass fraction] 94 % Marek Castano DO Work Phone: [facility] 12-27-2022 11:24-0500 Systolic blood pressure 104 mm[Hg] Marek Castano DO Work Phone: [facility] 12-27-2022 03:37-0500 Body mass index (BMI) [Ratio] 39.3 kg/m2 Marek Castano DO Work Phone: [facility] 12-27-2022 03:37-0500 Body weight 94.35 kg Marek Castano DO Work Phone: [facility] 12-23-2022 19:11-0500 Body height 154.9 cm Marek Castano DO Work Phone: [facility] 12-20-2022 21:18-0500 Diastolic blood pressure 99 mm[Hg] DO [facility] 12-20-2022 21:18-0500 Heart rate 60 /min DO [facility] 12-20-2022 21:18-0500 Respiratory rate 15 /min DO [facility] 12-20-2022 21:18-0500 SaO2% (BldA) [Mass fraction] 97 % DO [facility] 12-20-2022 21:18-0500 Systolic blood pressure 148 mm[Hg] DO [facility] 12-20-2022 17:28-0500 Body mass index (BMI) [Ratio] 42.8 kg/m2 DO [facility] 12-20-2022 17:28-0500 Body temperature 96.7 [degF] DO [facility] 12-20-2022 17:28-0500 Body weight 102.8 kg DO [facility] 10-02-2022 09:19-0400 Body height 154.[address] Divina Smart Work Phone: [facility] 10-02-2022 09:19-0400 Body mass index (BMI) [Ratio] 41.3 kg/m2 Dr. Divina Smart Work Phone: [facility] 10-02-2022 09:19-0400 Body weight 99.[address] Divina Smart Work Phone: [facility] 10-02-2022 09:19-0400 Diastolic blood pressure 83 mm[Hg] Dr. Divina Smart Work Phone: [facility] 10-02-2022 09:19-0400 Heart rate 53 /min Dr. Divina Smart Work Phone: [facility] 10-02-2022 09:19-0400 Respiratory rate 18 /min Dr. Divina Smart Work Phone: [facility] 10-02-2022 09:19-0400 SaO2% (BldA) [Mass fraction] 99 % Dr. Divina Smart Work Phone: [facility] 10-02-2022 09:19-0400 Systolic blood pressure 144 mm[Hg] Dr. Divina Smart Work Phone: [facility] 09-12-2022 07:43-0400 Body temperature 97.3 [degF] Attila Mcmahon MD Work Phone: [facility] 09-12-2022 07:43-0400 Diastolic blood pressure 77 mm[Hg] Attila Mcmahon MD Work Phone: [facility] 09-12-2022 07:43-0400 Heart rate 60 /min Attila Mcmahon MD Work Phone: [facility] 09-12-2022 07:43-0400 Respiratory rate 16 /min Attila Mcmahon MD Work Phone: [facility] 09-12-2022 07:43-0400 SaO2% (BldA) [Mass fraction] 94 % Attila Mcmahon MD Work Phone: [facility] 09-12-2022 07:43-0400 Systolic blood pressure 144 mm[Hg] Attila Mcmahon MD Work Phone: [facility] 09-12-2022 02:52-0400 Body mass index (BMI) [Ratio] 40.66 kg/m2 Attila Mcmahon MD Work Phone: [facility] 09-12-2022 02:52-0400 Body weight 97.61 kg Attila Mcmahon MD Work Phone: [facility] 09-10-2022 15:04-0400 Body height 154.9 cm Attila Mcmahon MD Work Phone: [facility] 09-02-2022 16:19-0400 Diastolic blood pressure 82 mm[Hg] Dr. Divina Smart Work Phone: [facility] 09-02-2022 16:19-0400 Heart rate 62 /min Dr. Divina Smart Work Phone: [facility] 09-02-2022 16:19-0400 Respiratory rate 18 /min Dr. Divina Smart Work Phone: [facility] 09-02-2022 16:19-0400 SaO2% (BldA) [Mass fraction] 95 % Dr. Divina Smart Work Phone: [facility] 09-02-2022 16:19-0400 Systolic blood pressure 157 mm[Hg] Dr. Divina Smart Work Phone: [facility] 09-02-2022 12:32-0400 Body mass index (BMI) [Ratio] 44.3 kg/m2 Dr. Divina Smart Work Phone: [facility] 09-02-2022 12:32-0400 Body temperature 96.6 [degF] Dr. Divina Smart Work Phone: [facility] 09-02-2022 12:32-0400 Body weight 106.[address] Divina Smart Work Phone: [facility] 07-14-2022 13:53-0400 Heart rate 55 /min DO Divina GUAN [facility] 07-14-2022 13:53-0400 Respiratory rate 16 /min DO Divina GUAN [facility] 07-14-2022 12:26-0400 SaO2% (BldA) [Mass fraction] 98 % DO Divina GUAN [facility] 07-14-2022 12:19-0400 Body height 154.94 cm DO Divina GUAN [facility] 07-14-2022 12:19-0400 Body mass index (BMI) [Ratio] 42.7 kg/m2 DO [facility] 07-14-2022 12:19-0400 Body temperature 97.6 [degF] DO [facility] 07-14-2022 12:19-0400 Body weight 102.5 kg [facility] 05-07-2022 14:27-0400 Body mass index (BMI) [Ratio] 42.5 kg/m2 DO [facility] 05-07-2022 14:27-0400 Body weight 102.05 kg DO [facility] 05-07-2022 14:27-0400 Diastolic blood pressure 85 mm[Hg] DO [facility] 05-07-2022 14:27-0400 Heart rate 62 /min [facility] 05-07-2022 14:27-0400 Respiratory rate 22 /min DO [facility] 05-07-2022 14:27-0400 SaO2% (BldA) [Mass fraction] 97 % [facility] 05-07-2022 14:27-0400 Systolic blood pressure 148 mm[Hg] [facility] 09-11-2021 16:16-0400 Diastolic blood pressure 63 mm[Hg] [facility] Work Phone: 09-11-2021 16:16-0400 Heart rate 65 /min [facility] Work Phone: 09-11-2021 16:16-0400 Respiratory rate 16 /min [facility] Work Phone: 09-11-2021 16:16-0400 SaO2% (BldA) [Mass fraction] 93 % [facility] Work Phone: 09-11-2021 16:16-0400 Systolic blood pressure 132 mm[Hg] [facility] Work Phone: 09-11-2021 10:58-0400 Body height 154.94 cm [facility] Work Phone: 09-11-2021 10:58-0400 Body mass index (BMI) [Ratio] 41.8 kg/m2 [facility] Work Phone: 09-11-2021 10:58-0400 Body temperature 98.4 [degF] [facility] Work Phone: 09-11-2021 10:58-0400 Body weight 100.28 kg [facility] Work Phone: 08-14-2021 18:27-0400 Diastolic blood pressure 78 mm[Hg] DO [facility] Work Phone: 08-14-2021 18:27-0400 Heart rate 58 /min DO [facility] Work Phone: 08-14-2021 18:27-0400 Respiratory rate 18 /min DO [facility] Work Phone: 08-14-2021 18:27-0400 SaO2% (BldA) [Mass fraction] 95 % DO [facility] Work Phone: 08-14-2021 18:27-0400 Systolic blood pressure 157 mm[Hg] DO [facility] Work Phone: 08-14-2021 17:03-0400 Body height 154.94 cm DO [facility] Work Phone: 08-14-2021 17:03-0400 Body mass index (BMI) [Ratio] 41.3 kg/m2 DO [facility] Work Phone: 08-14-2021 17:03-0400 Body temperature 96.9 [degF] DO [facility] Work Phone: 08-14-2021 17:03-0400 Body weight 99.1 kg DO [facility] Work Phone: 07-26-2021 17:12-0400 Diastolic blood pressure 77 mm[Hg] DO [facility] Work Phone: 07-26-2021 17:12-0400 Systolic blood pressure 159 mm[Hg] DO [facility] Work Phone: 07-26-2021 14:10-0400 Body height 154.94 cm DO [facility] Work Phone: 07-26-2021 14:10-0400 Body mass index (BMI) [Ratio] 40.4 kg/m2 DO [facility] Work Phone: 07-26-2021 14:10-0400 Body temperature 96.9 [degF] DO [facility] Work Phone: 07-26-2021 14:10-0400 Body weight 97.06 kg DO [facility] Work Phone: 07-26-2021 14:10-0400 Heart rate 50 /min DO [facility] Work Phone: 07-26-2021 14:10-0400 Respiratory rate 14 /min DO [facility] Work Phone: 07-26-2021 14:10-0400 SaO2% (BldA) [Mass fraction] 100 % DO [facility] Work Phone: 07-26-2021 12:50-0400 Body temperature 97.81 [degF] Liya Benjamin L[employer]ED [employer] RESEARCHER Work Phone: [facility] 07-26-2021 12:50-0400 Diastolic blood pressure 75 mm[Hg] Liya Benjamin [employer] [facility] RESEARCHER Work Phone: [facility] 07-26-2021 12:50-0400 Heart rate 55 /min Liya Benjamin [employer]ED [employer] [facility] RESEARCHER Work Phone: [facility] 07-26-2021 12:50-0400 Respiratory rate 20 /min Liya Benjamin [employer]ED [employer] [facility] RESEARCHER Work Phone: [facility] 07-26-2021 12:50-0400 SaO2% (BldA) [Mass fraction] 96 % Liya Benjamin [employer]ED [employer] RESEARCHER Work Phone: [facility] 07-26-2021 12:50-0400 Systolic blood pressure 155 mm[Hg] Liya Benjamin [employer]ED [employer] RESEARCHER Work Phone: [facility] 07-09-2021 16:38-0400 Respiratory rate 18 /min DO [facility] Work Phone: 07-09-2021 15:44-0400 Diastolic blood pressure 89 mm[Hg] DO [facility] Work Phone: 07-09-2021 15:44-0400 Heart rate 54 /min DO [facility] Work Phone: 07-09-2021 15:44-0400 SaO2% (BldA) [Mass fraction] 97 % DO [facility] Work Phone: 07-09-2021 15:44-0400 Systolic blood pressure 143 mm[Hg] DO [facility] Work Phone: 07-09-2021 13:44-0400 Body height 154.94 cm DO [facility] Work Phone: 07-09-2021 13:44-0400 Body mass index (BMI) [Ratio] 39.6 kg/m2 DO [facility] Work Phone: 07-09-2021 13:44-0400 Body temperature 98.2 [degF] DO [facility] Work Phone: 07-09-2021 13:44-0400 Body weight 95.25 kg DO [facility] Work Phone: 05-01-2021 13:17-0400 Body weight 97.06 kg DO [facility] Work Phone: 05-01-2021 13:17-0400 Diastolic blood pressure 82 mm[Hg] DO [facility] Work Phone: 05-01-2021 13:17-0400 Heart rate 56 /min DO [facility] Work Phone: 05-01-2021 13:17-0400 Respiratory rate 22 /min DO [facility] Work Phone: 05-01-2021 13:17-0400 SaO2% (BldA) [Mass fraction] 96 % DO [facility] Work Phone: 05-01-2021 13:17-0400 Systolic blood pressure 156 mm[Hg] DO [facility] Work Phone: 05-01-2021 13:17-0400 Body height 154.94 cm DO [facility] Work Phone: 05-01-2021 13:17-0400 Body weight 97.06 kg DO [facility] Work Phone: 05-01-2021 13:17-0400 Diastolic blood pressure 82 mm[Hg] DO [facility] Work Phone: 05-01-2021 13:17-0400 Heart rate 56 /min DO [facility] Work Phone: 05-01-2021 13:17-0400 Respiratory rate 22 /min DO [facility] Work Phone: 05-01-2021 13:17-0400 SaO2% (BldA) [Mass fraction] 96 % DO [facility] Work Phone: 05-01-2021 13:17-0400 Systolic blood pressure 156 mm[Hg] DO [facility] Work Phone: 07-10-2020 11:33-0400 Body mass index (BMI) [Ratio] 40.8 kg/m2 DO [facility] Work Phone: 07-10-2020 11:33-0400 Body mass index (BMI) [Ratio] 40.8 kg/m2 DO [facility] Work Phone: Encounters Encounter Date Encounter Type Care Provider Facility Start: 07-25-2024 End: 07-25-[address] Hernan Luna MD -[facility] Work Phone: Start: 07-25-2024 End: 07-25-2024 ambulatory LUIZ KELLI SHANK FAKER-C Work Phone: [facility] Work Phone: Start: 07-05-2024 End: 07-05-2024 ambulatory LUIZ KELLI [employer]-[facility] RESE[facility]ER Facility:[facility] Start: 07-05-2024 End: 07-05-2024 Patient encounter procedure LUIZ KELLI [employer]-[facility] RESEARCHER [facility] Start: 05-08-2024 End: 05-08-2024 Emergency department patient visit Chandler Benjamin MD Work Phone: [facility] Comment on above: Constipation, unspec ified constipation type (Primary Dx) Start: 04-09-2024 End: 04-09-2024 Emergency department patient visit Ender Atkins MD Work Phone: [facility] Comment on above: Constipation, unspec ified constipation type (Primary Dx); Elevated serum creatinine Start: 01-10-2024 End: 01-10-2024 ambulatory LUIZ KELLI [employer]-[facility] RESE[facility]ER Facility:[facility] Start: 01-10-2024 End: 01-10-2024 Patient encounter procedure LUIZ KELLI [employer] RESE[facility]ER [facility] Start: 01-03-2024 End: 01-03-2024 Emergency department patient visit LUIZ PEREIRA Facility:[facility] Start: 10-26-2023 End: 10-26-2023 ambulatory LUIZ PEREIRA Facility:[facility] Start: 10-12-2023 End: 10-12-2023 ambulatory LUIZ PEREIRA [employer] RESE[facility] Facility:[facility] Start: 10-12-2023 End: 10-12-2023 Patient encounter procedure LUIZ PEREIRA [employer]-[facility] RESE[facility]ER [facility] Start: 10-03-2023 End: 10-04-2023 Emergency department patient visit LUIZ PEREIRA Facility:[facility] Start: 09-13-2023 End: 09-13-2023 ambulatory LUIZ PEREIRA Facility:[facility] Start: 08-21-2023 End: 08-21-2023 Emergency department patient visit Janet Macias MD Work Phone: [facility] Comment on above: Constipation, unspec ified constipation type (Primary Dx) Start: 07-28-2023 End: 07-28-2023 Emergency department patient visit NELY PEREZ DO [facility] Start: 05-18-2023 End: 05-19-2023 Emergency department patient visit DO Divina Smart [facility] Department Work Phone: Start: 05-14-2023 End: 05-14-2023 Subsequent hospital visit by physician [facility] Comment on above: Arrived Start: 05-14-2023 End: 05-14-2023 Emergency department patient visit Shawn Duvall MD Work Phone: [facility] Comment on above: Closed nondisplaced fracture of phalanx of lesser toe of right foot, unspecified phalanx, initial encounter (Primary Dx) Start: 05-10-2023 End: 05-10-2023 ambulatory DIVINA SMART DO Facility:[facility] Start: 05-10-2023 End: 05-10-[address] RUPERT LIND DO [facility] Start: 04-07-2023 End: 04-11-2023 ambulatory DIVINA SMART DO Facility:[facility] Start: 02-23-2023 End: 02-23-2023 Emergency department patient visit DO Divina Bing ROGE [facility]Emergency Department Work Phone: Start: 02-15-2023 End: 02-15-2023 ambulatory DIVINA SMART DO Facility:[facility] Start: 02-10-2023 End: 02-10-[address] RUPERT LIND DO [facility] Start: 02-10-2023 End: 02-14-2023 ambulatory DIVINA BING Facility:[facility] Start: 02-10-2023 End: 02-14-[address] RUPERT LIND DO [facility] Start: 01-28-2023 End: 01-28-2023 Patient encounter procedure DO Divina GUAN [facility] Work Phone: Start: 12-23-2022 End: 12-23-2022 Subsequent hospital visit by physician [facility] Radiology Comment on above: Arrived Start: 12-23-2022 End: 12-27-2022 Evaluation and management of inpatient Marek Castano DO Work Phone: [facility] Cardiac Progressive Care Unit PCU 5W Comment on above: Acute decompensated heart failure (HCC) (Primary Dx) Start: 12-20-2022 End: 12-20-2022 Emergency department patient visit DO Divina Mcneillsay [facility]Emergency Department Work Phone: Start: 10-09-2022 End: 10-09-[address] Divina Smart Work Phone: [facility] Work Phone: Start: 10-09-2022 End: 10-09-[address] Divina Smart Work Phone: [facility]-Laboratory, Specimen Work Phone: Start: 10-02-2022 End: 10-02-[address] Divina Smart Work Phone: [facility] Work Phone: Start: 09-08-2022 End: 09-08-2022 Subsequent hospital visit by physician [facility] Radiology Comment on above: Arrived Start: 09-08-2022 End: 09-12-2022 Evaluation and management of inpatient Attila Mcmahon MD Work Phone: [facility] Comment on above: Dyspnea, unspecified type (Primary Dx); Hypoxia; Leg edema; Acute on chronic congestive heart failure, unspecified heart failure type (HCC); Acute pulmonary edema (HCC); Pyelonephritis; Diastolic congestive heart failure, unspecified HF chronicity (HCC); Acute on chronic diastolic (congestive) heart failure (HCC) Start: 09-02-2022 End: 09-02-2022 Emergency department patient visit Dr. Divina Smart Work Phone: [facility] Work Phone: Start: 08-10-2022 End: 08-10-2022 Patient encounter procedure DIVINA SMART DO [facility] Start: 07-14-2022 End: 07-14-2022 Emergency department patient visit DO Divina GUAN [facility]Emer[facility] Start: 05-07-2022 End: 05-07-2022 Patient encounter procedure DO Divina GUAN [facility] Start: 09-11-2021 End: 09-11-2021 Emergency department patient visit [facility] Start: 08-21-2021 End: 08-21-2021 Patient encounter procedure DIVINA SMART DO [facility] Start: 08-14-2021 End: 08-14-2021 Emergency department patient visit DO [facility] Start: 07-26-2021 End: 07-26-2021 Emergency department patient visit DO [facility]Emergency Department Start: 07-26-2021 End: 07-26-2021 Patient encounter procedure Liya Benjamin BORIS Work Phone: [facility] Comment on above: Bilateral lower extr emity edema (Primary Dx) Start: 07-09-2021 End: 07-09-2021 Emergency department patient visit DO [facility]Emergency [facility] Start: 05-15-2021 End: 05-15-2021 Patient encounter procedure DIVINA SMART DO [facility] Start: 05-07-2021 Non-patient / Non-visit DO [facility] Start: 05-07-2021 End: 05-07-2021 Patient encounter procedure DO [facility]iov[facility]cul[facility] Services Start: 05-01-2021 End: 05-01-2021 Patient encounter procedure DO [facility] Start: 09-17-2020 End: 11-20-2020 Physical therapy management DIVINA SMART DO [facility] Start: 03-08-2018 Patient encounter procedure DIVINA Galindo [facility] Start: 11-14-2017 Evaluation and manag ement of inpatient UNKNOWN PROVIDER [facility] Start: 09-05-2016 Ambulatory UNKNOWN PROVIDER [facility] Procedures Date Procedure Procedure Detail Performing Clinician Start: 05-08-2024 Ct abdomen & pelvis w/contrast material Chandler Benjamin MD Work Phone: Start: 05-08-2024 Ecg routine ecg w/le ast 12 lds trcg only w/o i&r Chandler Benjamin MD Work Phone: Start: 05-08-2024 Comprehensive metabo lic panel Chandler Benjamin MD Work Phone: Start: 05-08-2024 Urinalysis complete panel - Urine Chandler Benjamin MD Work Phone: Start: 05-08-2024 Urnls dip stick/tabl et reagent auto microscopy Chandler Benjamin MD Work Phone: Start: 04-09-2024 Urinalysis complete panel - Urine Ender Atkins MD Work Phone: Start: 04-09-2024 Urnls dip stick/tabl et reagent auto microscopy Ender Atkins MD Work Phone: Start: 04-09-2024 Ct abdomen & pelvis w/o contrast material Ender Atkins MD Work Phone: Start: 04-09-2024 Blood occult peroxid ase actv qual feces 1-3 spec Ender Atkins MD Work Phone: Start: 04-09-2024 Comprehensive metabo lic panel Ender Atkins MD Work Phone: Start: 05-19-2023 Plain chest X-ray DO Ro gricelda Bing ROGE Start: 05-19-2023 X-ray of both feet DO R dominiquemanolo Smart OLS Start: 05-14-2023 Radex foot complete minimum 3 views Shawn Duvall MD Work Phone: Start: 02-23-2023 Diagnostic radiograp hy of abdomen DO Divina GUAN Start: 12-27-2022 Basic metabolic pane l calcium total Delon Bravo MD Work Phone: Start: 12-26-2022 Basic metabolic pane l calcium total Delon Bravo MD Work Phone: Start: 12-25-2022 Basic metabolic pane l calcium total Delon Bravo MD Work Phone: Start: 12-24-2022 Ct head/brain w/o co ntrast material Attila Joya MD Work Phone: Start: 12-24-2022 Basic metabolic pane l calcium total Delon Bravo MD Work Phone: Start: 12-24-2022 Thyrotropin [Units/v olume] in Serum or Plasma [facility] Start: 12-23-2022 Ecg routine ecg w/le ast 12 lds trcg only w/o i&r Marek Castano DO Work Phone: Start: 12-23-2022 Radiologic exam ches t single view Marek Castano DO Work Phone: Start: 12-23-2022 Urinalysis complete panel - Urine Marek Castano DO Work Phone: Start: 12-23-2022 Urnls dip stick/tabl et reagent auto microscopy Marek Castano DO Work Phone: Start: 12-23-2022 Basic metabolic pane l calcium total Marek Castano DO Work Phone: Start: 12-20-2022 Plain chest X-ray DO Amber GUAN Start: 12-20-2022 CT of head without contrast DO Divina GUAN Start: 12-20-2022 Urine culture DO Divina GUAN Start: 12-20-2022 Viral antigen assay DO Divina GUAN Start: 10-09-[address] Alcon Smart Work Phone: Start: 09-12-2022 Basic metabolic pane l calcium total Duran Laboy DO Work Phone: Start: 09-11-2022 OXYGEN THERAPY Attila Mcmahon MD Work Phone: Start: 09-11-2022 Basic metabolic pane l calcium total Duran Laboy DO Work Phone: Start: 09-10-2022 OXYGEN THERAPY Attila Mcmahon MD Work Phone: Start: 09-10-2022 Echo tthrc r-t 2d w/wom-mode compl spec&colr d Duran Laboy DO Work Phone: Start: 09-10-2022 Basic metabolic pane l calcium total Duran Laboy DO Work Phone: Start: 09-09-2022 Lipid 1996 panel - S mitchell or Plasma [facility] Start: 09-09-2022 Basic metabolic pane l calcium total Narsimha Carrillo Kodakandla MD Work Phone: Start: 09-09-2022 Lipid panel Tariq Jones MD Work Phone: Start: 09-08-2022 Culture bacterial quanttative colony count urine Attila Mcmahon MD Work Phone: Start: 09-08-2022 Ct abdomen & pelvis w/contrast material Attila Mcmahon MD Work Phone: Start: 09-08-2022 Ecg routine ecg w/le ast 12 lds trcg only w/o i&r Attila Mcmahon MD Work Phone: Start: 09-08-2022 Comprehensive metabo lic panel Attila Mcmahon MD Work Phone: Start: 09-08-2022 SARS-COV-2, FLU A/B, AND RSV COMBO Attila Mcmahon MD Work Phone: Start: 09-08-2022 Radiologic exam ches t single view Attila Mcmahon MD Work Phone: Start: 09-08-2022 OXYGEN THERAPY Attila Mcmahon MD Work Phone: Start: 09-02-2022 Plain chest X-ray Dr. Wyatt Smart Work Phone: Start: 09-11-2021 Plain chest X-ray Start: 07-26-2021 Plain chest X-ray DO Ro gricelda Mcneillsay Start: 07-09-2021 Plain chest X-ray DO Ro gricelda Mcneillsay Start: 07-09-2021 SARS-CoV-2 & FLU Ant igen (Rapid) DO Divina Smrat Start: 08-01-2020 Hernia repair DIVINA BEGUM DO Comment on above: hernia repair x2 Start: 06-08-2020 Endoscopy DIVINA BRADLEY DO Start: 11-13-2017 Thyrotropin [Units/v olume] in Serum or Plasma [facility] Start: 06-15-2017 Aortic valve replace ment and replacement of ascending aorta DIVINA SMART DO [employer] Start: 03-05-2017 Cardiac catheterization DIVINA SMART DO Start: 07-09-2016 Injection of eye DIVINA SMART DO SeeMore Interactive Comment on above: bilateral Abdominal hysterectomy Abdominal hysterectomy( Confirmed ) DIVINA SMART DO SeeMore Interactive Hernia of abdominal cavity (disorder) DIVINA SMART DO SeeMore Interactive Comment on above: x 3 History of repair of inguinal hernia Hx of inguinal hernia repair( Confirmed ) DIVINA SMART DO Hysterectomy DIVINA SMART DO SeeMore Interactive Comment on above: total Intestinal structure (body structure) DIVINA SMART DO SeeMore Interactive Comment on above: Resection SARS-CoV-2 & FLU Ant igen (Rapid) DO Divina Smart Urinary bladder stru cture (body structure) DIVINA SMART DO SeeMore Interactive Comment on above: sling Plan of Treatment Date Care Activity Detail Author Start: 09-10-2027 Lip[address] Lip[address] Panel [facility] Start: 05-08-2025 Creatinine measurement Creatinine Le [facility] Start: 05-08-2025 Potassium measurement Potassium Leve l [facility] Start: 04-09-2025 Creatinine measurement Creatinine Le [facility] Start: 04-09-2025 Potassium measurement Potassium Leve l [facility] Start: 12-28-2023 Creatinine measurement Creatinine Le [facility] Start: 12-28-2023 Potassium measurement Potassium Leve l [facility] Start: 12-25-2023 Creatinine measurement Creatinine Le [facility] Start: 12-25-2023 Potassium measurement Potassium Leve l [facility] Start: 12-25-2023 Thyroid stimulating hormone measurement TSH Level [facility] Start: 10-10-2023 COVID-19 Vaccine ( season) COVID-19 Vaccine ( season) [facility] Start: 10-10-2023 Influenza vaccination Influenza Vacc ine (#1) [facility] Start: 09-13-2023 Creatinine measurement Creatinine Le mason [facility] Start: 09-13-2023 Potassium measurement Potassium Leve l [facility] Start: 09-11-2023 Echocardiography Echocardiogram [facility] Start: 09-10-2023 Creatinine measurement Creatinine Le mason [facility] Start: 09-10-2023 Potassium measurement Potassium Leve l [facility] Start: 05-19-2023 [facility] Start: 02-23-2023 [facility] Start: 12-20-2022 [facility] Start: 10-09-2022 COVID-19 Vaccine ( season) COVID-19 Vaccine ( season) [facility] Start: 10-09-2022 Influenza vaccination Influenza Vacc ine (#1) [facility] Start: 09-02-2022 [facility] Start: 10-09-2021 Influenza vaccination INFLUENZA (Sea son Ended) [facility] Start: 09-11-2021 [facility] Work Phone: Start: 07-26-2021 Troponin I measurement [facility] Work Phone: Start: 07-26-2021 [facility] Work Phone: Start: 02-27-2021 COVID-19 VACCINE (3 - Booster for Moderna series) COVID-19 VACCINE (3 - Booster for Moderna series) [facility] Start: 02-08-2021 ADVANCE DIRECTIVE DISCUSSION ADVANCE DIRECTIVE DISCUSSION [facility] Start: 11-22-2020 COVID-19 Vaccine (3 - Booster for Moderna series) COVID-19 Vaccine (3 - Booster for Moderna series) [facility] Start: 11-14-2020 DIABETES SCREEN DIABETES SCREEN [facility] Start: 01-07-2019 DTaP/Tdap/Td Vaccine s (2 - Tdap) DTaP/Tdap/Td Vaccines (2 - Tdap) [facility] Start: 11-13-2018 Thyroid stimulating hormone measurement TSH Level [facility] Start: 01-07-2011 Pneumococcal Vaccine : 50+ Years (2 of 2 - PCV) Pneumococcal Vaccine: 50+ Years (2 of 2 - PCV) [facility] Start: 01-07-2011 Pneumococcal Vaccine : 65+ Years (2 - PCV) Pneumococcal Vaccine: 65+ Years (2 - PCV) [facility] Start: 01-07-2011 Pneumococcal Vaccine : 65+ Years (2 of 2 - PCV) Pneumococcal Vaccine: 65+ Years (2 of 2 - PCV) [facility] Start: 09-23-2010 RSV Immunization for Adults (1 - 1-dose 75+ series) RSV Immunization for Adults (1 - 1-dose 75+ series) [facility] Start: 09-23-2000 BONE DENSITY BONE DENSITY [facility] Start: 09-23-2000 PNEUMOCOCCAL: 65+ (1 - PCV) PNEUMOCOCCAL: 65+ (1 - PCV) [facility] Start: 1995 RSV Immunization age d 60 or older (1 - 1-dose 60+ series) RSV Immunization aged 60 or older (1 - 1-dose 60+ series) [facility] Start: 09-23-1985 SHINGRIX VACCINE (1 of 2) BEAVERS GRIX VACCINE (1 of 2) [facility] Start: 09-23-1985 Zoster Vaccines (1 of 2) Zoster Vacc saima (1 of 2) [facility] Start: 09-23-1954 Urine microalbumin profile DTAP,TDAP ,TD (1 - Tdap) [facility] Start: 1947 Depression Screening Depression Scre ening [facility] Start: 1935 Echocardiography Echocardiogram [facility] Start: 1935 Medicare Annual Well ness (AWV) Medicare Annual Wellness (AWV) [facility] Start: 1935 Screening for osteoporosis Bone Dens ity Scan [facility] Bacteria identified in Urine by Culture Urine Culture [facility] Work Phone: End: 04-09-2024 Bacteria identified in Urine by Culture [facility] Work Phone: Comment on above: STAT (Lab) for 1 Occ urrences starting 04/09/2024 until 04/09/2024 Once for 1 Occurrenc es starting 04/09/2024 until 04/09/2024 [facility] Work Phone: Patient referral [facility] Work Phone: [facility] Work Phone: End: 04-09-2024 Urine Hold Cup Urine Hold Cup Lab Timed Once for 1 Occurrences starting 04/09/2024 until 04/09/2024 [facility] Comment on above: Once for 1 Occurrenc es starting 04/09/2024 until 04/09/2024 Immunizations Immunization Date Immunization Notes Care Provider Omar hale 12-25-2022 influenza virus vacc ine, unspecified formulation DR RUPERT LIND DO [facility] 12-25-2022 Influenza, Seasonal, Quadrivalent, Adjuvanted Marek Castano DO Work Phone: [facility] 12-02-2021 influenza virus vacc ine, unspecified formulation [facility] 09-27-2020 SARS-CoV-2 (COVID-19 ) mRNA-[address] RUPERT LIND DO [facility] 08-30-2020 SARS-CoV-2 (COVID-19 ) mRNA-[address] RUPERT LIND DO [facility] 10-28-2018 influenza virus vacc ine, unspecified formulation DR RUPERT LIND DO [facility] 11-04-2017 influenza virus vacc ine, unspecified formulation DIVINA SMART DO [facility] 11-06-2016 influenza virus vacc ine, unspecified formulation DR RUPERT LIND DO [facility] Comment on above: Result Comment: 2023: VIS DATE: 09/14/2014 11-06-2016 influenza, injectabl e, quadrivalent, preservative free [facility] 11-26-2015 influenza virus vacc ine, unspecified formulation DR RUPERT LIND DO [facility] 10-19-2014 influenza virus vacc ine, unspecified formulation DR RUPERT LIND DO [facility] 02-08-2010 pneumococcal polysaccharide vaccine, 23 valent DIVINA BING DO [facility] 01-07-2010 pneumococcal polysaccharide vaccine, [address] RUPERT LIND DO [facility] 02-08-2009 pneumococcal conjuga te vaccine, 13 valent DIVINA SMART DO [facility] 02-08-2009 tetanus and diphther ia toxoids, adsorbed, preservative free, for adult use (5 Lf of tetanus toxoid and 2 Lf of diphtheria toxoid) DIVINA HAMILTONY DO [facility] 01-07-2009 diphtheria and tetan us toxoids, adsorbed for pediatric use DR RUPERT LIND DO [facility] Payers Date Payer Category Payer Self-pay [id number] 2023 Medicare [id number] 2017 Private Health Insurance JASMIN KEARNEY PPO [id number] 2017-Present [phone] [facility] [id number] [place] [address] O [id number] 2005 Commercial Managed C are - HMO [employer] [id number] 2005 Private Health Insurance 2005 Private Health Insurance [id number] 2000 Medicare 2000 Medicare MEDICARE MEDICAR E A AND B [id number] 2000-[facility] [phone] [address] [address] [place] [address] Medicare [id number] 2000 Medicare [id number] 1935 Unknown [id number] 1935 Unknown [id number] .2 1935 Unknown [id number] .2. 1935 Unknown [id number] .2. 1935 Unknown [id number] .2. 1935 Unknown [id number] [id number] .2. 1935 Unknown [id number] .2.62 1935 Unknown [id number] .2. 1935 Unknown [id number] .[id number] 1935 Unknown [id number] .2.627 1935 Unknown [id number] .2.627 Unknown [id number] .2.462 Unknown [id number] .2.462 Unknown [id number] .2.462 Unknown [id number] .2.462 Unknown [id number] .2.462 Social History Date Type Detail Facility Start: 08-12-2018 End: 01-03-2024 Never smoked tobacco (finding) [facility] Comment on above: No tobacco/smoke exp osure. Sex Assigned At [facility] Start: 05-01-2021 End: 05-18-2023 Tobacco smoking status IDIS Unknown if ever smoked [facility] Start: 02-08-2018 None [facility] Start: 02-08-2018 Alone [facility] Start: 06-25-2020 Non-smoker [facility] Start: 1935 Sex Assigned At Female [facility] Start: 04-30-2017 Tobacco use and exposure Smoke less tobacco non-user [facility] Start: 07-26-2021 End: 04-09-2024 Alcohol intake Current non-drinker of alcohol (finding) [facility] Start: 06-07-2017 Tobacco Comment used t o smoke 3 packs per day [facility] Start: 1935 Sex Assigned At Not on file [facility] Start: 07-16-2021 End: 09-08-2022 Exposure to SARS-CoV-2 (event) Not sure [facility] Start: 09-09-2022 End: 04-09-2024 History of Social function [facility] Start: 09-09-2022 End: 04-09-2024 Humiliation, Afraid, Rape, and Kick questionnaire [HARK] [facility] Within the last year , have you been afraid of your partner or ex-partner? No [facility] Are you now , , , , never or living with a partner? [facility] How often to you hav e a drink containing alcohol? Never [facility] How many standard dr inks containing alcohol do you have on a typical day? Patient does not drink [facility] How hard is it for y ou to pay for the very basics like food, housing, medical care, and heating Somewhat hard [facility] Do you feel stress - tense, restless, nervous, or anxious, or unable to sleep at night because your mind is troubled all the time - these days [OSQ] Rather much [facility] (I/We) worried wheth er (my/our) food would run out before (I/we) got money to buy more. Never true [facility] At any time in the p ast 12 months, were you homeless or living in fci [including now]? Yes [facility] Start: 09-01-2014 End: 09-08-2021 Sex Female (finding) [facility] Medical Equipment Procedure Code Equipment Code Equipment Original Text Equipment Identifier Dates MESH,PRO ELECTRICAL DESIGNER [id number] FDA Sta rt: 08-01-2020 MESH,VENTLEX ST SM 4.3CM FDA Start: 08-01-2020 MESH,PRO ELECTRICAL DESIGNER [id number] FDA Sta rt: 08-01-2020 MESH,VENTLEX ST SM 4.3CM FDA Start: 08-01-2020 Rudyard Thk1.65mm P tfe 4x.5in Cardiovascular Sterile - [id number] Start: 06-15-2017 Rudyard Thk1.65mm P tfe 4x.5in Cardiovascular Sterile - [id number] Start: 06-15-2017 Patch Thk.5mm Mickey vine Pericardial [id number] Cardiovascular Resilience Durable - [id number] Start: 06-15-2017 Valve Aort 23mm Crp-Ed Thfx - [id number] Start: 06-15-2017 MESH,PRO ELECTRICAL DESIGNER [id number] FDA Sta rt: 08-01-2020 MESH,VENTLEX ST SM 4.3CM FDA Start: 08-01-2020 MESH,PRO ELECTRICAL DESIGNER [id number] FDA Sta rt: 08-01-2020 MESH,VENTLEX ST SM 4.3CM FDA Start: 08-01-2020 MESH,PRO ELECTRICAL DESIGNER [id number] FDA Sta rt: 08-01-2020 MESH,VENTLEX ST SM 4.3CM FDA Start: 08-01-2020 MESH,PRO ELECTRICAL DESIGNER [id number] FDA Sta rt: 08-01-2020 MESH,VENTLEX ST SM 4.3CM FDA Start: 08-01-2020 MESH,PRO ELECTRICAL DESIGNER [id number] FDA Sta rt: 08-01-2020 MESH,VENTLEX ST SM 4.3CM FDA Start: 08-01-2020 MESH,PRO ELECTRICAL DESIGNER [id number] FDA Sta rt: 08-01-2020 MESH,VENTLEX ST SM 4.3CM FDA Start: 08-01-2020 MESH,PRO ELECTRICAL DESIGNER [id number] FDA Sta rt: 08-01-2020 MESH,VENTLEX ST SM 4.3CM FDA Start: 08-01-2020 MESH,PRO ELECTRICAL DESIGNER [id number] FDA Sta rt: 08-01-2020 MESH,VENTLEX ST SM 4.3CM FDA Start: 08-01-2020 Functional Status Date Assessment Result Facility 07-28-2023 Functional Status Independent [facility] 07-28-2023 Functional Status Resting [facility] Mental Status Date Assessment Result Facility 07-28-2023 Mental Status Orientation Oriented x 4 [facility] 07-28-2023 Mental Status [facility] 05-18-2023 Cognitive function Level Of Cons ciousness Awake;Alert;Appropriate;Follow s Commands [facility] Work Phone: 12-20-2022 Cognitive function Level Of Cons ciousness Awake;Alert;Appropriate;Follow s Commands [facility] Work Phone: 09-02-2022 Cognitive function Level Of Cons ciousness Awake;Alert;Appropriate;Follow s Commands [facility] Work Phone: 09-11-2021 Cognitive function Level Of Cons ciousness Awake;Alert;Appropriate;Follow s Commands [facility] Work Phone: 08-14-2021 Cognitive function Level Of Cons ciousness Awake;Alert;Appropriate;Follow s Commands [facility] Work Phone: 07-26-2021 Cognitive function Level Of Cons ciousness Awake;Alert;Appropriate;Follow s Commands [facility] Work Phone: 07-09-2021 Cognitive function Level Of Cons ciousness Awake;Alert;Appropriate;Follow s Commands [facility] Work Phone: Clinical Notes 06-15-2017 to 05-08-2024 Discharge InstructionsAttachmentsMaye Dailey RN - 05/08/2024 11:37 AM Lizeth Dailey RN - 05/08/2024 11:37 AM Radha Benjamin MD - 05/08/2024 10:02 AM EDTDischarge InstructionsAttachments Note Date & Type Note Facility 05-08-2024 Hospital Discharge instructions Chandler Benjamin MD - 05/08/2024 12:07 PM EDT Take Tylenol for your hand pain. The CAT scan is showing constipation. Take MiraLAX daily for that. Schedule an appointment with your physician. The following attachments cannot be sent through Care Everywhere.Constipation Discharge Instructions, Adult (Sami)documented in this encounter [facility] 05-08-2024 Emergency department Note Patients brother Florian (POA) [phone]. Asked to be contacted when patient is discharged so he can provide a ride home. [facility] 05-08-2024 Emergency department Note Patients Florian (POA) [phone]. Asked to be contacted when patient is discharged so he can provide a ride home. EMERGENCY DEPARTMENT ENCOUNTER Pt Name: Gonzalo Lei Birthdate 1935 Date of evaluation: 05/08/2024 ED Provider: Chandler Benjamin MD CHIEF COMPLAINT Chief Complaint Patient presents with Abdominal Pain Pt states abd pain and pressure along the top part of her abdomen. Pt reports she has been taking all her meds. Pt also states R arm pain that she has had for years. HISTORY OF PRESENT ILLNESS I wore appropriate PPE for the entirety of this encounter. HPI Gonzalo Lei is a 88 y.o. female who presents to the emergency department complaining of pain in her right hand along with abdominal pain. Patient states that she has gout. She began having severe pain to her right second third and fourth MCP joints consistent with gout. She has not taken any medication for it. Today she developed severe epigastric and left upper quadrant pain. There has been no cough or sputum production. There has been no nausea vomiting or diarrhea. She has a history of GERD. She also has hypertension. Nursing Notes were reviewed. Limitations to history: None Outside historians: None REVIEW OF SYSTEMS Review of Systems Constitutional: Negative for chills and fever. HENT: Negative for ear pain and sore throat. Eyes: Negative for pain and visual disturbance. Respiratory: Negative for cough and shortness of breath. Cardiovascular: Negative for chest pain and palpitations. Gastrointestinal: Positive for abdominal pain. Negative for vomiting. Genitourinary: Negative for dysuria and hematuria. Musculoskeletal: Positive for arthralgias. Negative for back pain. Skin: Negative for color change and rash. Neurological: Negative for seizures and syncope. All other systems reviewed and are negative. PAST MEDICAL HISTORY Past Medical History: Diagnosis Date Anemia Arthritis Cancer (CMS/HCC) (HCC) Skin arm and leg GERD (gastroesophageal reflux disease) Gout Hypertension Psoriasis SOB (shortness of breath) Thyroid disease Vertigo SURGICAL HISTORY Past Surgical History: Procedure Laterality Date AORTIC VALVE REPLACEMENT 2018 BLADDER SUSPENSION 2010 w/mesh HERNIA REPAIR 4 times [place], 1979, 2007,2010, 2005 HIATAL HERNIA REPAIR 10/21/2016 lap hiatal hernia, lap [place], upper GI endoscopy, dr. beltran ach HYSTERECTOMY 1998 SKIN CANCER EXCISION SMALL INTESTINE SURGERY 1979 UPPER GASTROINTESTINAL ENDOSCOPY 07/28/2016 CURRENT MEDICATIONS Previous Medications FUROSEMIDE (LASIX) 20 MG TABLET Take 1 tablet (20 mg) by mouth daily. Do not start before September 13, 2022. IPRATROPIUM-ALBUTEROL (DUO-NEB) 0.5-2.5 MG/3 ML NEBULIZER SOLUTION Take 3 mL by nebulization 4 times daily as needed for shortness of breath. LEVOTHYROXINE (SYNTHROID, LEVOXYL) 125 MCG TABLET Take 125 mcg by mouth daily. LOSARTAN (COZAAR) 50 MG TABLET Take 25 mg by mouth daily. MELATONIN 5 MG TABLET Take 1 tablet (5 mg) by mouth Nightly as needed. MINERAL OIL ENEMA Insert 1 enema into the rectum Once as needed for constipation for up to 1 dose. PANTOPRAZOLE (PROTONIX) 40 MG EC TABLET Take 1 tablet (40 mg) by mouth daily (before lunch). Do not crush, chew, or split. Do not start before September 12, 2022. ALLERGIES Levofloxacin FAMILY HISTORY Family History Problem Relation Name Age of Onset Hypertension Mother Colon cancer Neg Hx Hypertension Father SOCIAL HISTORY Social History Socioeconomic History Marital status: Tobacco Use Smoking status: Never Smokeless tobacco: Never Substance and Sexual Activity Alcohol use: No Drug use: No Social Drivers of Health Financial Resource Strain: Medium Risk (09/09/2022) Overall Financial Resource Strain (CARDIA) Difficulty of Paying Living Expenses: Somewhat hard Food Insecurity: No Food Insecurity (09/09/2022) Hunger Vital Sign Worried About Running Out of Food in the Last Year: Never true Ran Out of Food in the Last Year: Never true Transportation Needs: Unmet Transportation Needs (09/09/2022) PRAPARE - Transportation Lack of Transportation (Medical): Yes Lack of Transportation (Non-Medical): Yes Physical Activity: Inactive (09/09/2022) Exercise Vital Sign Days of Exercise per Week: 0 days Minutes of Exercise per Session: 0 min Stress: Stress Concern Present (09/09/2022) [employer] - Occupational Stress Questionnaire Feeling of Stress : Rather much Social Connections: Moderately Integrated (09/09/2022) Social Connection and Isolation Panel [NHANES] Frequency of Communication with Friends and Family: Twice a week Frequency of Social Gatherings with Friends and Family: Once a week Attends Alevism Services: 1 to 4 times per year Active Member of Clubs or Organizations: No Attends Club or Organization Meetings: 1 to 4 times per year Marital Status: Intimate Partner Violence: Unknown (12/24/2022) Humiliation, Afraid, Rape, and Kick questionnaire Fear of Current or Ex-Partner: No Housing Stability: High Risk (09/09/2022) Housing Stability Vital Sign Unable to Pay for Housing in the Last Year: No Number of Places Lived in the Last Year: 1 Unstable Housing in the Last Year: Yes SCREENINGS PHYSICAL EXAM ED Triage Vitals [05/08/24 1004] Temp Heart Rate Resp BP 36.4 C (97.6 F) 62 16 (!) 158/91 SpO2 Temp Source Heart Rate Source Patient Position 96 % Oral Monitor -- BP Location FiO2 (%) -- -- Physical Exam Vitals and nursing note reviewed. Constitutional: General: She is not in acute distress. Appearance: She is well-developed. Comments: The patient is an older female found lying on a cart. She is alert and oriented. She appears uncomfortable. HENT: Head: Normocephalic and atraumatic. Eyes: Conjunctiva/sclera: Conjunctivae normal. Cardiovascular: Rate and Rhythm: Normal rate and regular rhythm. Heart sounds: No murmur heard. Pulmonary: Effort: Pulmonary effort is normal. No respiratory distress. Breath sounds: Normal breath sounds. Abdominal: Palpations: Abdomen is soft. Tenderness: There is abdominal tenderness in the epigastric area and left upper quadrant. There is guarding. Musculoskeletal: General: No swelling. Cervical back: Neck supple. Skin: General: Skin is warm and dry. Capillary Refill: Capillary refill takes less than 2 seconds. Neurological: Mental Status: She is alert. Psychiatric: Mood and Affect: Mood normal. DIAGNOSTIC RESULTS RADIOLOGY (Per Emergency Physician): Interpretation per the Radiologist below, if available at the time of this note: CT abdomen pelvis w contrast Final Result Increased fecal residue throughout the colon is suggestive of constipation. Report Dictated on Electronically Signed By: Jayro Yuo MD Electronically Signed Date/Time: 05/08/2024 12:03 PM EDT EKG Interpretation: An EKG is obtained. It demonstrates a normal sinus rhythm with a rate of 69. QRS axis is 64 degrees. A left bundle branch block pattern is present. There are no acute ST segment findings. There is no evidence of an ST elevation [place]. LABS: Labs Reviewed COMPREHENSIVE METABOLIC PANEL - Abnormal Result Value SODIUM 142 POTASSIUM 4.4 CHLORIDE 106 CARBON DIOXIDE 28 ANION GAP 8 UREA NITROGEN 21 CREATININE 1.13 (*) GLUCOSE 127 (*) CALCIUM 9.1 AST (SGOT) 24 ALT 12 ALKALINE PHOSPHATASE 75 ALBUMIN 3.6 BILIRUBIN, TOTAL 0.4 TOTAL PROTEIN 6.7 eGFR 46.9 (*) COMPLETE URINALYSIS - Abnormal Color, Urine Colorless Clarity, Urine Clear pH, Urine 7.0 Leukocytes, Urine 75 (*) Nitrite, Urine Negative Protein, Urine Negative Glucose, Urine Normal Bilirubin, Urine Negative Ketones, Urine Negative Urobilinogen, Urine Normal Blood, Urine Negative Volume, Urine 12 mL RBC, Urine Negative WBC, Urine 3-5 Squamous Epithelial, Urine 0-2 Bacteria, Urine Few (*) SPECIFIC GRAVITY OF URINE (NUMERIC) 1.008 CBC WITH AUTO DIFFERENTIAL - Normal Auto WBC 6.6 RBC 4.51 Hemoglobin 13.5 Hematocrit 41.5 MCV 92.0 MCH 29.9 MCHC 32.5 RDW 14.2 Platelets 179 MPV 12.5 nRBC 0.0 Neutrophils Relative 66.8 Lymphocytes Relative 20.2 Monocytes Relative 8.8 Eosinophils Relative 2.9 Basophils Relative 1.1 Immature Grans % 0.2 Neutrophils Absolute 4.4 Lymphocytes Absolute 1.3 Monocytes Absolute 0.6 Eosinophils Absolute 0.2 Basophils Absolute 0.1 Immature Grans Absolute 0.0 LIPASE - Normal LIPASE 9 HIGH SENSITIVITY TROPONIN, SERIAL BASELINE - Normal Troponin HS Serial Baseline 10 COMPLETE URINALYSIS WITH REFLEX TO CULTURE Narrative: The following orders were created for panel order Urinalysis complete with reflex to Culture. Procedure Abnormality Status --------- ------ Complete Urinalysis[[id number]] Abnormal Final result Please view results for these tests on the individual orders. HIGH SENSITIVITY TROPONIN, SERIAL, SECOND TEST All other labs were within normal range or not returned as of this dictation. EMERGENCY DEPARTMENT COURSE and DIFFERENTIAL DIAGNOSIS/MDM: Vitals: Vitals: 05/08/24 1004 BP: (!) 158/91 Pulse: 62 Resp: 16 Temp: 36.4 C (97.6 F) TempSrc: Oral SpO2: 96% Weight: 99.8 kg (220 lb) Medications Administered in the ED: Medications sodium chloride 0.9 % bolus 500 mL (500 mL IntraVENous New Bag 05/08/24 1047) HYDROmorphone (Dilaudid) injection 0.5 mg (0.5 mg IntraVENous Given 05/08/24 1047) ondansetron (Zofran) injection 4 mg (4 mg IntraVENous Given 05/08/24 1048) iopamidol (Isovue-370) 76 % injection 75 mL (75 mL IntraVENous Given 05/08/24 1142) David Benjamin MD am the puller through of record. PROCEDURES: Unless otherwise noted below, none Procedures Differential Diagnosis Considerations: Differential diagnosis includes small bowel obstruction, gastritis, GERD, pyelonephritis, as well as other intra-abdominal cause of pain including pancreatitis. Additionally, the patient appears to have a flareup of her gout. ED testing and evaluation will be obtained to help differentiate these diagnostic possibilities and determine the most likely cause. Sources of History: I evaluated other historical sources including previous outpatient records and admission records. ED Course: In the emergency department I initially evaluated the patient with a history and physical examination in order to determine diagnostic testing and therapeutic care. On the basis of this history and physical examination CAT scan of the abdomen will be obtained along with laboratory work. Reassessment: CAT scan of the abdomen and pelvis demonstrates constipation but no other abnormality. Patient's laboratory work is within normal limits. Patient is advised to take Tylenol for her gout pain. A prescription for MiraLAX is provided. Consideration of Admission/Observation: I considered admission for this patient, however, at this time the patient appears to be stable. I do not believe that the patient would benefit from admission at this time. I believe the patient can follow-up with the primary care physician. The patient is advised to return to the emergency department if symptoms change or worsen where admission may need to be considered at a another time. Independent Interpretation of Tests: I independently evaluated the results of the patient's diagnostic testing in the context of the patient's presentation. Diagnostic Tests Considered but not Performed: No other diagnostic tests are considered at this time. Prescription Medications Considered but not Prescribed: None Chronic Conditions Affecting Care: None FINAL IMPRESSION 1. Constipation, unspecified constipation type DISPOSITION Discharge 05/08/2024 12:06:03 PM PATIENT REFERRED TO: [facility] ED [address] [place] [address] As needed DISCHARGE MEDICATIONS: New Prescriptions POLYETHYLENE GLYCOL, PEG, 3350 (MIRALAX) 17 G PACKET Take 17 g by mouth daily for 3 days. (Comment: Please note this report has been produced using speech recognition software and may contain errors related to that system including errors in grammar, punctuation, and spelling, as well as words and phrases that may be inappropriate. If there are any questions or concerns please feel free to contact the dictating provider for clarification.) Chandler Benjamin MD (electronically signed) Emergency Medicine Provider Chandler Benjamin MD 05/08/24 1207 documented in this encounter [facility] 05-08-2024 Physician Emergency department Note EMERGENCY DEPARTMENT ENCOUNTER Pt Name: Gonzalo Lei Birthdate 1935 Date of evaluation: 05/08/2024 ED Provider: Chandler Benjamin MD CHIEF COMPLAINT Chief Complaint Patient presents with Abdominal Pain Pt states abd pain and pressure along the top part of her abdomen. Pt reports she has been taking all her meds. Pt also states R arm pain that she has had for years. HISTORY OF PRESENT ILLNESS I wore appropriate PPE for the entirety of this encounter. HPI Gonzalo Lei is a 88 y.o. female who presents to the emergency department complaining of pain in her right hand along with abdominal pain. Patient states that she has gout. She began having severe pain to her right second third and fourth MCP joints consistent with gout. She has not taken any medication for it. Today she developed severe epigastric and left upper quadrant pain. There has been no cough or sputum production. There has been no nausea vomiting or diarrhea. She has a history of GERD. She also has hypertension. Nursing Notes were reviewed. Limitations to history: None Outside historians: None REVIEW OF SYSTEMS Review of Systems Constitutional: Negative for chills and fever. HENT: Negative for ear pain and sore throat. Eyes: Negative for pain and visual disturbance. Respiratory: Negative for cough and shortness of breath. Cardiovascular: Negative for chest pain and palpitations. Gastrointestinal: Positive for abdominal pain. Negative for vomiting. Genitourinary: Negative for dysuria and hematuria. Musculoskeletal: Positive for arthralgias. Negative for back pain. Skin: Negative for color change and rash. Neurological: Negative for seizures and syncope. All other systems reviewed and are negative. PAST MEDICAL HISTORY Past Medical History: Diagnosis Date Anemia Arthritis Cancer (CMS/HCC) (HCC) Skin arm and leg GERD (gastroesophageal reflux disease) Gout Hypertension Psoriasis SOB (shortness of breath) Thyroid disease Vertigo SURGICAL HISTORY Past Surgical History: Procedure Laterality Date AORTIC VALVE REPLACEMENT 2017 BLADDER SUSPENSION 2010 w/mesh HERNIA REPAIR 4 times [place], 1979, 2007,2010, 2005 HIATAL HERNIA REPAIR 10/21/2016 lap hiatal hernia, lap Ron[place], upper GI endoscopy, dr. beltran ach HYSTERECTOMY 1998 SKIN CANCER EXCISION SMALL INTESTINE SURGERY 1979 UPPER GASTROINTESTINAL ENDOSCOPY 07/28/2016 CURRENT MEDICATIONS Previous Medications FUROSEMIDE (LASIX) 20 MG TABLET Take 1 tablet (20 mg) by mouth daily. Do not start before September 13, 2022. IPRATROPIUM-ALBUTEROL (DUO-NEB) 0.5-2.5 MG/3 ML NEBULIZER SOLUTION Take 3 mL by nebulization 4 times daily as needed for shortness of breath. LEVOTHYROXINE (SYNTHROID, LEVOXYL) 125 MCG TABLET Take 125 mcg by mouth daily. LOSARTAN (COZAAR) 50 MG TABLET Take 25 mg by mouth daily. MELATONIN 5 MG TABLET Take 1 tablet (5 mg) by mouth Nightly as needed. MINERAL OIL ENEMA Insert 1 enema into the rectum Once as needed for constipation for up to 1 dose. PANTOPRAZOLE (PROTONIX) 40 MG EC TABLET Take 1 tablet (40 mg) by mouth daily (before lunch). Do not crush, chew, or split. Do not start before September 12, 2022. ALLERGIES Levofloxacin FAMILY HISTORY Family History Problem Relation Name Age of Onset Hypertension Mother Colon cancer Neg Hx Hypertension Father SOCIAL HISTORY Social History Socioeconomic History Marital status: Tobacco Use Smoking status: Never Smokeless tobacco: Never Substance and Sexual Activity Alcohol use: No Drug use: No Social Drivers of Health Financial Resource Strain: Medium Risk (09/09/2022) Overall Financial Resource Strain (CARDIA) Difficulty of Paying Living Expenses: Somewhat hard Food Insecurity: No Food Insecurity (09/09/2022) Hunger Vital Sign Worried About Running Out of Food in the Last Year: Never true Ran Out of Food in the Last Year: Never true Transportation Needs: Unmet Transportation Needs (09/09/2022) PRAPARE - Transportation Lack of Transportation (Medical): Yes Lack of Transportation (Non-Medical): Yes Physical Activity: Inactive (09/09/2022) Exercise Vital Sign Days of Exercise per Week: 0 days Minutes of Exercise per Session: 0 min Stress: Stress Concern Present (09/09/2022) [employer] - Occupational Stress Questionnaire Feeling of Stress : Rather much Social Connections: Moderately Integrated (09/09/2022) Social Connection and Isolation Panel [NHANES] Frequency of Communication with Friends and Family: Twice a week Frequency of Social Gatherings with Friends and Family: Once a week Attends Alevism Services: 1 to 4 times per year Active Member of Clubs or Organizations: No Attends Club or Organization Meetings: 1 to 4 times per year Marital Status: Intimate Partner Violence: Unknown (12/24/2022) Humiliation, Afraid, Rape, and Kick questionnaire Fear of Current or Ex-Partner: No Housing Stability: High Risk (09/09/2022) Housing Stability Vital Sign Unable to Pay for Housing in the Last Year: No Number of Places Lived in the Last Year: 1 Unstable Housing in the Last Year: Yes SCREENINGS PHYSICAL EXAM ED Triage Vitals [05/08/24 1004] Temp Heart Rate Resp BP 36.4 C (97.6 F) 62 16 (!) 158/91 SpO2 Temp Source Heart Rate Source Patient Position 96 % Oral Monitor -- BP Location FiO2 (%) -- -- Physical Exam Vitals and nursing note reviewed. Constitutional: General: She is not in acute distress. Appearance: She is well-developed. Comments: The patient is an older female found lying on a cart. She is alert and oriented. She appears uncomfortable. HENT: Head: Normocephalic and atraumatic. Eyes: Conjunctiva/sclera: Conjunctivae normal. Cardiovascular: Rate and Rhythm: Normal rate and regular rhythm. Heart sounds: No murmur heard. Pulmonary: Effort: Pulmonary effort is normal. No respiratory distress. Breath sounds: Normal breath sounds. Abdominal: Palpations: Abdomen is soft. Tenderness: There is abdominal tenderness in the epigastric area and left upper quadrant. There is guarding. Musculoskeletal: General: No swelling. Cervical back: Neck supple. Skin: General: Skin is warm and dry. Capillary Refill: Capillary refill takes less than 2 seconds. Neurological: Mental Status: She is alert. Psychiatric: Mood and Affect: Mood normal. DIAGNOSTIC RESULTS RADIOLOGY (Per Emergency Physician): Interpretation per the Radiologist below, if available at the time of this note: CT abdomen pelvis w contrast Final Result Increased fecal residue throughout the colon is suggestive of constipation. Report Dictated on Electronically Signed By: Jayro You MD Electronically Signed Date/Time: 05/08/2024 12:03 PM EDT EKG Interpretation: An EKG is obtained. It demonstrates a normal sinus rhythm with a rate of 69. QRS axis is 64 degrees. A left bundle branch block pattern is present. There are no acute ST segment findings. There is no evidence of an ST elevation [place]. LABS: Labs Reviewed COMPREHENSIVE METABOLIC PANEL - Abnormal Result Value SODIUM 142 POTASSIUM 4.4 CHLORIDE 106 CARBON DIOXIDE 28 ANION GAP 8 UREA NITROGEN 21 CREATININE 1.13 (*) GLUCOSE 127 (*) CALCIUM 9.1 AST (SGOT) 24 ALT 12 ALKALINE PHOSPHATASE 75 ALBUMIN 3.6 BILIRUBIN, TOTAL 0.4 TOTAL PROTEIN 6.7 eGFR 46.9 (*) COMPLETE URINALYSIS - Abnormal Color, Urine Colorless Clarity, Urine Clear pH, Urine 7.0 Leukocytes, Urine 75 (*) Nitrite, Urine Negative Protein, Urine Negative Glucose, Urine Normal Bilirubin, Urine Negative Ketones, Urine Negative Urobilinogen, Urine Normal Blood, Urine Negative Volume, Urine 12 mL RBC, Urine Negative WBC, Urine 3-5 Squamous Epithelial, Urine 0-2 Bacteria, Urine Few (*) SPECIFIC GRAVITY OF URINE (NUMERIC) 1.008 CBC WITH AUTO DIFFERENTIAL - Normal Auto WBC 6.6 RBC 4.51 Hemoglobin 13.5 Hematocrit 41.5 MCV 92.0 MCH 29.9 MCHC 32.5 RDW 14.2 Platelets 179 MPV 12.5 nRBC 0.0 Neutrophils Relative 66.8 Lymphocytes Relative 20.2 Monocytes Relative 8.8 Eosinophils Relative 2.9 Basophils Relative 1.1 Immature Grans % 0.2 Neutrophils Absolute 4.4 Lymphocytes Absolute 1.3 Monocytes Absolute 0.6 Eosinophils Absolute 0.2 Basophils Absolute 0.1 Immature Grans Absolute 0.0 LIPASE - Normal LIPASE 9 HIGH SENSITIVITY TROPONIN, SERIAL BASELINE - Normal Troponin HS Serial Baseline 10 COMPLETE URINALYSIS WITH REFLEX TO CULTURE Narrative: The following orders were created for panel order Urinalysis complete with reflex to Culture. Procedure Abnormality Status --------- ------ Complete Urinalysis[[id number]] Abnormal Final result Please view results for these tests on the individual orders. HIGH SENSITIVITY TROPONIN, SERIAL, SECOND TEST All other labs were within normal range or not returned as of this dictation. EMERGENCY DEPARTMENT COURSE and DIFFERENTIAL DIAGNOSIS/MDM: Vitals: Vitals: 05/08/24 1004 BP: (!) 158/91 Pulse: 62 Resp: 16 Temp: 36.4 C (97.6 F) TempSrc: Oral SpO2: 96% Weight: 99.8 kg (220 lb) Medications Administered in the ED: Medications sodium chloride 0.9 % bolus 500 mL (500 mL IntraVENous New Bag 05/08/24 1047) HYDROmorphone (Dilaudid) injection 0.5 mg (0.5 mg IntraVENous Given 05/08/24 1047) ondansetron (Zofran) injection 4 mg (4 mg IntraVENous Given 05/08/24 1048) iopamidol (Isovue-370) 76 % injection 75 mL (75 mL IntraVENous Given 05/08/24 1142) I Chandler Benjamin MD am the puller through of record. PROCEDURES: Unless otherwise noted below, none Procedures Differential Diagnosis Considerations: Differential diagnosis includes small bowel obstruction, gastritis, GERD, pyelonephritis, as well as other intra-abdominal cause of pain including pancreatitis. Additionally, the patient appears to have a flareup of her gout. ED testing and evaluation will be obtained to help differentiate these diagnostic possibilities and determine the most likely cause. Sources of History: I evaluated other historical sources including previous outpatient records and admission records. ED Course: In the emergency department I initially evaluated the patient with a history and physical examination in order to determine diagnostic testing and therapeutic care. On the basis of this history and physical examination CAT scan of the abdomen will be obtained along with laboratory work. Reassessment: CAT scan of the abdomen and pelvis demonstrates constipation but no other abnormality. Patient's laboratory work is within normal limits. Patient is advised to take Tylenol for her gout pain. A prescription for MiraLAX is provided. Consideration of Admission/Observation: I considered admission for this patient, however, at this time the patient appears to be stable. I do not believe that the patient would benefit from admission at this time. I believe the patient can follow-up with the primary care physician. The patient is advised to return to the emergency department if symptoms change or worsen where admission may need to be considered at a another time. Independent Interpretation of Tests: I independently evaluated the results of the patient's diagnostic testing in the context of the patient's presentation. Diagnostic Tests Considered but not Performed: No other diagnostic tests are considered at this time. Prescription Medications Considered but not Prescribed: None Chronic Conditions Affecting Care: None FINAL IMPRESSION 1. Constipation, unspecified constipation type DISPOSITION Discharge 05/08/2024 12:06:03 PM PATIENT REFERRED TO: [facility] ED [address] [facility] [id number] As needed DISCHARGE MEDICATIONS: New Prescriptions POLYETHYLENE GLYCOL, PEG, 3350 (MIRALAX) 17 G PACKET Take 17 g by mouth daily for 3 days. (Comment: Please note this report has been produced using speech recognition software and may contain errors related to that system including errors in grammar, punctuation, and spelling, as well as words and phrases that may be inappropriate. If there are any questions or concerns please feel free to contact the dictating provider for clarification.) Chandler Benjamin MD (electronically signed) Emergency Medicine Provider Chandler Benjamin MD 05/08/24 1207 [facility] 04-09-2024 Emergency department Note Brother arrived to take patient home. Wheeled patient to ED exit and assisted into vehicle. [facility] 04-09-2024 Emergency department Note Brother arrived to take patient home. Wheeled patient to ED exit and assisted into vehicle. Phoned patient's brother for ride home. Patient informed ETA 15-20 min. Pt to ED7 via [facility] with report of urinating less than usual, and LBM 4 days ago. Pt states she has taken pills for her bowels with no effect, and took Lasix to help her void more but it has not helped. Pt is A&Ox3, respirations even and unlabored, skin warm and dry, no distress noted. [facility] ED EMERGENCY DEPARTMENT ENCOUNTER Pt Name: Gonzalo Lei Birthdate 1935 Date of evaluation: 04/09/2024 Provider: Ender Atkins MD CHIEF COMPLAINT Chief Complaint Patient presents with Constipation Female Dysuria HISTORY OF PRESENT ILLNESS (Location/Symptom, Timing/Onset,Context/Setting, Quality, Duration, Modifying Factors, Severity) Note limiting factors. Gonzalo Lei is a 88 y.o. female who presents to the emergency department with 2 complaints. Patient's had constipation about 4 days. Just no good bowel movement. She also says she takes Lasix and has not urinated much. She denies chest pain shortness breath fevers chills says she feels tightness in her suprapubic region. Brought in via squad. HPI Historian is the patient Nurse's notes for past medical history, surgical history, social history were reviewed. Medications and allergies reviewed. PAST MEDICAL HISTORY Past Medical History: Diagnosis Date Anemia Arthritis Cancer (CMS/HCC) (HCC) Skin arm and leg GERD (gastroesophageal reflux disease) Gout Hypertension Psoriasis SOB (shortness of breath) Thyroid disease Vertigo SURGICALHISTORY Past Surgical History: Procedure Laterality Date AORTIC VALVE REPLACEMENT 2018 BLADDER SUSPENSION 2010 w/mesh HERNIA REPAIR 4 times [place], 1979, 2007,2010, 2005 HIATAL HERNIA REPAIR 10/21/2016 lap hiatal hernia, lap [place], upper GI endoscopy, dr. beltran ach HYSTERECTOMY 1998 SKIN CANCER EXCISION SMALL INTESTINE SURGERY 1979 UPPER GASTROINTESTINAL ENDOSCOPY 07/28/2016 CURRENT MEDICATIONS Previous Medications FUROSEMIDE (LASIX) 20 MG TABLET Take 1 tablet (20 mg) by mouth daily. Do not start before September 13, 2022. IPRATROPIUM-ALBUTEROL (DUO-NEB) 0.5-2.5 MG/3 ML NEBULIZER SOLUTION Take 3 mL by nebulization 4 times daily as needed for shortness of breath. LEVOTHYROXINE (SYNTHROID, LEVOXYL) 125 MCG TABLET Take 125 mcg by mouth daily. LOSARTAN (COZAAR) 50 MG TABLET Take 25 mg by mouth daily. MELATONIN 5 MG TABLET Take 1 tablet (5 mg) by mouth Nightly as needed. MINERAL OIL ENEMA Insert 1 enema into the rectum Once as needed for constipation for up to 1 dose. PANTOPRAZOLE (PROTONIX) 40 MG EC TABLET Take 1 tablet (40 mg) by mouth daily (before lunch). Do not crush, chew, or split. Do not start before September 12, 2022. Levofloxacin FAMILY HISTORY Family History Problem Relation Name Age of Onset Hypertension Mother Colon cancer Neg Hx Hypertension Father SOCIAL HISTORY Social History Socioeconomic History Marital status: Tobacco Use Smoking status: Never Smokeless tobacco: Never Substance and Sexual Activity Alcohol use: No Drug use: No Social Drivers of Health Financial Resource Strain: Medium Risk (09/09/2022) Overall Financial Resource Strain (CARDIA) Difficulty of Paying Living Expenses: Somewhat hard Food Insecurity: No Food Insecurity (09/09/2022) Hunger Vital Sign Worried About Running Out of Food in the Last Year: Never true Ran Out of Food in the Last Year: Never true Transportation Needs: Unmet Transportation Needs (09/09/2022) PRAPARE - Transportation Lack of Transportation (Medical): Yes Lack of Transportation (Non-Medical): Yes Physical Activity: Inactive (09/09/2022) Exercise Vital Sign Days of Exercise per Week: 0 days Minutes of Exercise per Session: 0 min Stress: Stress Concern Present (09/09/2022) [employer] - Occupational Stress Questionnaire Feeling of Stress : Rather much Social Connections: Moderately Integrated (09/09/2022) Social Connection and Isolation Panel [NHANES] Frequency of Communication with Friends and Family: Twice a week Frequency of Social Gatherings with Friends and Family: Once a week Attends Alevism Services: 1 to 4 times per year Active Member of Clubs or Organizations: No Attends Club or Organization Meetings: 1 to 4 times per year Marital Status: Intimate Partner Violence: Unknown (12/24/2022) Humiliation, Afraid, Rape, and Kick questionnaire Fear of Current or Ex-Partner: No Housing Stability: High Risk (09/09/2022) Housing Stability Vital Sign Unable to Pay for Housing in the Last Year: No Number of Places Lived in the Last Year: 1 Unstable Housing in the Last Year: Yes SCREENINGS PHYSICAL EXAM (up to 7 for level 4, 8 or more for level 5) @EDTRIAGEVSS@ Appropriate PPE including n 95, gown, gloves, goggles where worn when appropriate with this patient. Physical Exam Vital signs reviewed general: Alert and oriented 3 head: Atraumatic eyes: Equal round reactive to light and accommodating, pupils are equal, round and reactive to light and accommodation oropharynx: Clear and well hydrated neck: Supple heart: Regular rate and rhythm, no murmurs lungs: Clear to auscultation bilaterally abdomen: Soft but does have suprapubic tenderness but no rebound or guarding. No upper abdominal tenderness. Positive bowel sounds, no peritoneal findings. Note with female automatic furnace operator rectal examination performed brown stool there is no impaction or fecal impaction. No bleeding. No hemorrhoids. Formed by myself with automatic furnace operator female. Patient did give verbal consent. Extremities: Moving all fours, no tenderness. Normal capillary refill. Skin: No rash or lesions -to the exposed skin neurologically: Alert and oriented 3, no focal deficit DIAGNOSTIC RESULTS RADIOLOGY: Interpretation per the Radiologist below, if availableat the time of this note: CT abdomen pelvis wo IV contrast Final Result 1. Imaging does not explain the patient's clinical symptoms. Normal bladder contour. No obstructive uropathy. 2. Left renal cortical thinning and atrophy, unchanged. 3. Fecal retention, consider constipation. 4. Moderate hiatal hernia with postsurgical changes at the diaphragmatic hiatus. 5. Colonic diverticulosis. 6. Additional findings, as above. Report Dictated on Electronically Signed By: Nannette Lazcano MD Electronically Signed Date/Time: 04/09/2024 7:14 PM EST ED BEDSIDE ULTRASOUND: Performed by ED Physician - none LABS: Labs Reviewed COMPREHENSIVE METABOLIC PANEL - Abnormal Result Value SODIUM 139 POTASSIUM 3.8 CHLORIDE 98 CARBON DIOXIDE 29 ANION GAP 12 UREA NITROGEN 26 (*) CREATININE 1.38 (*) GLUCOSE 154 (*) CALCIUM 9.9 AST (SGOT) 25 ALT 16 ALKALINE PHOSPHATASE 76 ALBUMIN 3.9 BILIRUBIN, TOTAL 0.4 TOTAL PROTEIN 7.0 eGFR 36.9 (*) COMPLETE URINALYSIS - Abnormal Color, Urine Light Yellow Clarity, Urine Clear pH, Urine 7.0 Leukocytes, Urine 75 (*) Nitrite, Urine Negative Protein, Urine Negative Glucose, Urine Normal Bilirubin, Urine Negative Ketones, Urine Negative Urobilinogen, Urine Normal Blood, Urine Negative Volume, Urine 12 mL RBC, Urine Negative WBC, Urine 3-5 Squamous Epithelial, Urine 0-2 Bacteria, Urine Few (*) SPECIFIC GRAVITY OF URINE (NUMERIC) 1.008 OCCULT BLOOD, STOOL - Normal Fecal occult blood Negative Narrative: Methodology: Immunoassay LIPASE - Normal LIPASE 12 CBC WITH AUTO DIFFERENTIAL - Normal Auto WBC 9.3 RBC 4.87 Hemoglobin 14.8 Hematocrit 44.1 MCV 90.6 MCH 30.4 MCHC 33.6 RDW 14.2 Platelets 155 MPV 12.2 nRBC 0.0 Neutrophils Relative 63.1 Lymphocytes Relative 24.1 Monocytes Relative 9.6 Eosinophils Relative 2.3 Basophils Relative 0.6 Immature Grans % 0.3 Neutrophils Absolute 5.9 Lymphocytes Absolute 2.2 Monocytes Absolute 0.9 Eosinophils Absolute 0.2 Basophils Absolute 0.1 Immature Grans Absolute 0.0 URINE CULTURE, ORDERABLE Narrative: The following orders were created for panel order Urine culture. Procedure Abnormality Status --------- ------ Urine culture[[id number]] In process Urine Hold Cup[[id number]] Please view results for these tests on the individual orders. URINE CULTURE COMPLETE URINALYSIS WITH REFLEX TO CULTURE Narrative: The following orders were created for panel order Urinalysis complete with reflex to Culture. Procedure Abnormality Status --------- ------ Complete Urinalysis[[id number]] Abnormal Final result Please view results for these tests on the individual orders. URINE HOLD CUP All other labs were within normal range or not returned as of thisdictation. EMERGENCYDEPARTMENT COURSE and DIFFERENTIAL DIAGNOSIS/MDM: Vitals: Vitals: 04/09/24 1732 04/09/24 1734 04/09/24 1922 BP: (!) 162/113 (!) 152/82 BP Location: Right arm Patient Position: Sitting Pulse: 75 81 Resp: 20 18 Temp: 36.8 C (98.2 F) TempSrc: Temporal SpO2: 100% 97% Weight: 99.8 kg (220 lb) Height: 1.549 m (5' 1) Medical Decision Making Amount and/or Complexity of Data Reviewed Labs: ordered. Radiology: ordered. EMERGENCY DEPARTMENT COURSE and DIFFERENTIAL DIAGNOSIS/MDM: Vitals: Vitals: 04/09/24 1732 04/09/24 1734 04/09/24 1922 BP: (!) 162/113 (!) 152/82 BP Location: Right arm Patient Position: Sitting Pulse: 75 81 Resp: 20 18 Temp: 36.8 C (98.2 F) TempSrc: Temporal SpO2: 100% 97% Weight: 99.8 kg (220 lb) Height: 1.549 m (5' 1) The patient presented with a chief complaint of abdominal pain decreased urine output constipation. The differential diagnosis associated with this patient's presentation includes urinary retention bowel obstruction obstipation electrolyte disturbance dehydration infection surgical abdominal process. Our workup consisted of ordering/reviewing blood work and CT abdomen pelvis. Will give 500 saline bolus. Will check urine. ED Course as of 04/09/242022 Sun Apr 09, [id number] Fecal occult negative. Lipase 12. Normal sodium potassium. Creatinine 1.38. Glucose 154. BUN 26. Normal white blood cell count. Hemoglobin 11.8. [GS] 2019 Urine sent for culture she has no urinary frequency or urgency. Reviewing her records, in 2022 her creatinine was then elevated in the past. She does have slightly increased GFR. She is drinking fluids here her IV infiltrated and we did not reestablish IV because she is drinking plenty of fluids here. She does do suppositories at home. Advised her she needs to increase her fluids. She needs to use Metamucil. And advised her to follow-up with her doctor in 1 week and she needs to get a repeat basic metabolic panel that can be done at her doctor's office in 1 week return here immediately if increased symptoms decreased urine output any abdominal pain or she has no bowel movement. At this point time she is not fecally impacted. Her CT of the abdomen pelvis full report reviewed does show some fecal retention constipation but there is not a large bolus of stool and on digital exam I did not feel significant stool that I could remove. She does have a hiatal hernia. There is no acute surgical abdominal process. No acute obstruction. Patient feels better she is drinking water here will like to go home. Her brother is ronaldo pick her up. [GS] ED Course User Index [GS] Ender Atkins MD Diagnoses as of 04/09/242022 Constipation, unspecified constipation type Elevated serum creatinine Diagnostics considered but not indicated based on history, physical, testing: None External records reviewed: Patient records patient has a history of chronic kidney disease hypertension seen her doctor on 10/12/2023 for this. Also had problems with constipation seen on 10/22/2023. Radiologic diagnostics interpreted by me: film images such as CT, Ultrasound and MRI are read by the radiologist. Plain radiographic images are visualized and preliminarily interpreted by the emergency physician with the below findings: CT scan(s) radiology full report reviewed as above Discussions with other clinicians: None Chronic conditions impacting care: Vertigo anemia cancer hypertension shortness of breath kidney disease bradycardia constipation Social determinants of health affecting care: None Shared decision making: Patient agrees to treatment plan Patient would like to go home. She feels better. Tolerating p.o. well. I had extensive discussion with her the importance of increasing her fiber Metamucil and also following up closely regarding her kidney function. ED Medications managed: Medications sodium chloride 0.9 % bolus 500 mL (0 mL IntraVENous Stopped 04/09/241906) Prescription drugs prescribed: PROCEDURES: Unless otherwise noted below, none Procedures IMPRESSION 1. Constipation, unspecified constipation type 2. Elevated serum creatinine DISPOSITION/PLAN DISPOSITION Discharge 04/09/2024 08:21:48 PM PATIENT REFERRED TO: Divina Smart DO [address] [place] [id number] In 1 week DISCHARGE MEDICATIONS: New Prescriptions No medications on file @[facility]([id number]:LAST:1)@ (Comment: Please notethis report has been produced using speech recognition software and may contain errors related to that system including errors in grammar, punctuation, and spelling, as well as words and phrases that may be inappropriate.If there is any questions or concerns please feel free to contact the dictating provider for clarification). Ender Atkins MD (electronically signed) Attending Emergency Physician Ender Atkins MD 04/09/242023 documented in this encounter [facility] 04-09-2024 Hospital Discharge instructions Ender Atkins MD - 04/09/2024 8:22 PM EST Courage fluids. Would recommend that in addition to the suppositories you use that you also increase and use fiber and Metamucil. Your kidney function was slightly elevated but there is no signs of UTI. Your urine was sent for culture. I would recommend that you follow-up with your doctor in 1 week and get a repeat basic metabolic panel to recheck your kidney function. This is very important to make sure that your kidneys are functioning properly. You do not need to be admitted for this but it does need close follow-up. Return here immediately if no bowel movement vomiting abdominal pain or any problems or concerns. The following attachments cannot be sent through Care Everywhere.Constipation Discharge Instructions, Adult (Sami)documented in this encounter [facility] 04-09-2024 Emergency department Note Phoned patient's brother for ride home. Patient informed ETA 15-20 min. [facility] 04-09-2024 Emergency department Triage note Pt to ED7 via [facility] with report of urinating less than usual, and LBM 4 days ago. Pt states she has taken pills for her bowels with no effect, and took Lasix to help her void more but it has not helped. Pt is A&Ox3, respirations even and unlabored, skin warm and dry, no distress noted. [facility] 04-09-2024 Physician Emergency department Note [facility] ED EMERGENCY DEPARTMENT ENCOUNTER Pt Name: Gonzalo Lei Birthdate 1935 Date of evaluation: 04/09/2024 Provider: Ender Atkins MD CHIEF COMPLAINT Chief Complaint Patient presents with Constipation Female Dysuria HISTORY OF PRESENT ILLNESS (Location/Symptom, Timing/Onset,Context/Setting, Quality, Duration, Modifying Factors, Severity) Note limiting factors. Gonzalo Lei is a 88 y.o. female who presents to the emergency department with 2 complaints. Patient's had constipation about 4 days. Just no good bowel movement. She also says she takes Lasix and has not urinated much. She denies chest pain shortness breath fevers chills says she feels tightness in her suprapubic region. Brought in via squad. HPI Historian is the patient Nurse's notes for past medical history, surgical history, social history were reviewed. Medications and allergies reviewed. PAST MEDICAL HISTORY Past Medical History: Diagnosis Date Anemia Arthritis Cancer (CMS/HCC) (HCC) Skin arm and leg GERD (gastroesophageal reflux disease) Gout Hypertension Psoriasis SOB (shortness of breath) Thyroid disease Vertigo SURGICALHISTORY Past Surgical History: Procedure Laterality Date AORTIC VALVE REPLACEMENT 2017 BLADDER SUSPENSION 2010 w/mesh HERNIA REPAIR 4 times [place], 1979, 2007,2010, 2005 HIATAL HERNIA REPAIR 10/21/2016 lap hiatal hernia, lap Ronen, upper GI endoscopy, dr. beltran ach HYSTERECTOMY 1998 SKIN CANCER EXCISION SMALL INTESTINE SURGERY 1979 UPPER GASTROINTESTINAL ENDOSCOPY 07/28/2016 CURRENT MEDICATIONS Previous Medications FUROSEMIDE (LASIX) 20 MG TABLET Take 1 tablet (20 mg) by mouth daily. Do not start before September 13, 2022. IPRATROPIUM-ALBUTEROL (DUO-NEB) 0.5-2.5 MG/3 ML NEBULIZER SOLUTION Take 3 mL by nebulization 4 times daily as needed for shortness of breath. LEVOTHYROXINE (SYNTHROID, LEVOXYL) 125 MCG TABLET Take 125 mcg by mouth daily. LOSARTAN (COZAAR) 50 MG TABLET Take 25 mg by mouth daily. MELATONIN 5 MG TABLET Take 1 tablet (5 mg) by mouth Nightly as needed. MINERAL OIL ENEMA Insert 1 enema into the rectum Once as needed for constipation for up to 1 dose. PANTOPRAZOLE (PROTONIX) 40 MG EC TABLET Take 1 tablet (40 mg) by mouth daily (before lunch). Do not crush, chew, or split. Do not start before September 12, 2022. Levofloxacin FAMILY HISTORY Family History Problem Relation Name Age of Onset Hypertension Mother Colon cancer Neg Hx Hypertension Father SOCIAL HISTORY Social History Socioeconomic History Marital status: Tobacco Use Smoking status: Never Smokeless tobacco: Never Substance and Sexual Activity Alcohol use: No Drug use: No Social Drivers of Health Financial Resource Strain: Medium Risk (09/09/2022) Overall Financial Resource Strain (CARDIA) Difficulty of Paying Living Expenses: Somewhat hard Food Insecurity: No Food Insecurity (09/09/2022) Hunger Vital Sign Worried About Running Out of Food in the Last Year: Never true Ran Out of Food in the Last Year: Never true Transportation Needs: Unmet Transportation Needs (09/09/2022) PRAPARE - Transportation Lack of Transportation (Medical): Yes Lack of Transportation (Non-Medical): Yes Physical Activity: Inactive (09/09/2022) Exercise Vital Sign Days of Exercise per Week: 0 days Minutes of Exercise per Session: 0 min Stress: Stress Concern Present (09/09/2022) [employer] - Occupational Stress Questionnaire Feeling of Stress : Rather much Social Connections: Moderately Integrated (09/09/2022) Social Connection and Isolation Panel [NHANES] Frequency of Communication with Friends and Family: Twice a week Frequency of Social Gatherings with Friends and Family: Once a week Attends Alevism Services: 1 to 4 times per year Active Member of Clubs or Organizations: No Attends Club or Organization Meetings: 1 to 4 times per year Marital Status: Intimate Partner Violence: Unknown (12/24/2022) Humiliation, Afraid, Rape, and Kick questionnaire Fear of Current or Ex-Partner: No Housing Stability: High Risk (09/09/2022) Housing Stability Vital Sign Unable to Pay for Housing in the Last Year: No Number of Places Lived in the Last Year: 1 Unstable Housing in the Last Year: Yes SCREENINGS PHYSICAL EXAM (up to 7 for level 4, 8 or more for level 5) @[facility]AGE[facility]@ Appropriate PPE including n 95, gown, gloves, goggles where worn when appropriate with this patient. Physical Exam Vital signs reviewed general: Alert and oriented 3 head: Atraumatic eyes: Equal round reactive to light and accommodating, pupils are equal, round and reactive to light and accommodation oropharynx: Clear and well hydrated neck: Supple heart: Regular rate and rhythm, no murmurs lungs: Clear to auscultation bilaterally abdomen: Soft but does have suprapubic tenderness but no rebound or guarding. No upper abdominal tenderness. Positive bowel sounds, no peritoneal findings. Note with female automatic furnace operator rectal examination performed brown stool there is no impaction or fecal impaction. No bleeding. No hemorrhoids. Formed by myself with automatic furnace operator female. Patient did give verbal consent. Extremities: Moving all fours, no tenderness. Normal capillary refill. Skin: No rash or lesions -to the exposed skin neurologically: Alert and oriented 3, no focal deficit DIAGNOSTIC RESULTS RADIOLOGY: Interpretation per the Radiologist below, if availableat the time of this note: CT abdomen pelvis wo IV contrast Final Result 1. Imaging does not explain the patient's clinical symptoms. Normal bladder contour. No obstructive uropathy. 2. Left renal cortical thinning and atrophy, unchanged. 3. Fecal retention, consider constipation. 4. Moderate hiatal hernia with postsurgical changes at the diaphragmatic hiatus. 5. Colonic diverticulosis. 6. Additional findings, as above. Report Dictated on Electronically Signed By: Nannette Lazcano MD Electronically Signed Date/Time: 04/09/2024 7:14 PM EST ED BEDSIDE ULTRASOUND: Performed by ED Physician - none LABS: Labs Reviewed COMPREHENSIVE METABOLIC PANEL - Abnormal Result Value SODIUM 139 POTASSIUM 3.8 CHLORIDE 98 CARBON DIOXIDE 29 ANION GAP 12 UREA NITROGEN 26 (*) CREATININE 1.38 (*) GLUCOSE 154 (*) CALCIUM 9.9 AST (SGOT) 25 ALT 16 ALKALINE PHOSPHATASE 76 ALBUMIN 3.9 BILIRUBIN, TOTAL 0.4 TOTAL PROTEIN 7.0 eGFR 36.9 (*) COMPLETE URINALYSIS - Abnormal Color, Urine Light Yellow Clarity, Urine Clear pH, Urine 7.0 Leukocytes, Urine 75 (*) Nitrite, Urine Negative Protein, Urine Negative Glucose, Urine Normal Bilirubin, Urine Negative Ketones, Urine Negative Urobilinogen, Urine Normal Blood, Urine Negative Volume, Urine 12 mL RBC, Urine Negative WBC, Urine 3-5 Squamous Epithelial, Urine 0-2 Bacteria, Urine Few (*) SPECIFIC GRAVITY OF URINE (NUMERIC) 1.008 OCCULT BLOOD, STOOL - Normal Fecal occult blood Negative Narrative: Methodology: Immunoassay LIPASE - Normal LIPASE 12 CBC WITH AUTO DIFFERENTIAL - Normal Auto WBC 9.3 RBC 4.87 Hemoglobin 14.8 Hematocrit 44.1 MCV 90.6 MCH 30.4 MCHC 33.6 RDW 14.2 Platelets 155 MPV 12.2 nRBC 0.0 Neutrophils Relative 63.1 Lymphocytes Relative 24.1 Monocytes Relative 9.6 Eosinophils Relative 2.3 Basophils Relative 0.6 Immature Grans % 0.3 Neutrophils Absolute 5.9 Lymphocytes Absolute 2.2 Monocytes Absolute 0.9 Eosinophils Absolute 0.2 Basophils Absolute 0.1 Immature Grans Absolute 0.0 URINE CULTURE, ORDERABLE Narrative: The following orders were created for panel order Urine culture. Procedure Abnormality Status --------- ------ Urine culture[[id number]] In process Urine Hold Cup[[id number]] Please view results for these tests on the individual orders. URINE CULTURE COMPLETE URINALYSIS WITH REFLEX TO CULTURE Narrative: The following orders were created for panel order Urinalysis complete with reflex to Culture. Procedure Abnormality Status --------- ------ Complete Urinalysis[[id number]] Abnormal Final result Please view results for these tests on the individual orders. URINE HOLD CUP All other labs were within normal range or not returned as of thisdictation. EMERGENCYDEPARTMENT COURSE and DIFFERENTIAL DIAGNOSIS/MDM: Vitals: Vitals: 04/09/24173104/09/24173304/09/241921 BP: (!) 162/113 (!) 152/82 BP Location: Right arm Patient Position: Sitting Pulse: 75 81 Resp: 20 18 Temp: 36.8 C (98.2 F) TempSrc: Temporal SpO2: 100% 97% Weight: 99.8 kg (220 lb) Height: 1.549 m (5' 1) Medical Decision Making Amount and/or Complexity of Data Reviewed Labs: ordered. Radiology: ordered. EMERGENCY DEPARTMENT COURSE and DIFFERENTIAL DIAGNOSIS/MDM: Vitals: Vitals: 04/09/24173104/09/24173304/09/241921 BP: (!) 162/113 (!) 152/82 BP Location: Right arm Patient Position: Sitting Pulse: 75 81 Resp: 20 18 Temp: 36.8 C (98.2 F) TempSrc: Temporal SpO2: 100% 97% Weight: 99.8 kg (220 lb) Height: 1.549 m (5' 1) The patient presented with a chief complaint of abdominal pain decreased urine output constipation. The differential diagnosis associated with this patient's presentation includes urinary retention bowel obstruction obstipation electrolyte disturbance dehydration infection surgical abdominal process. Our workup consisted of ordering/reviewing blood work and CT abdomen pelvis. Will give 500 saline bolus. Will check urine. ED Course as of 04/09/242022 Sun Apr 09, [id number] Fecal occult negative. Lipase 12. Normal sodium potassium. Creatinine 1.38. Glucose 154. BUN 26. Normal white blood cell count. Hemoglobin 11.8. [GS] 2019 Urine sent for culture she has no urinary frequency or urgency. Reviewing her records, in 2022 her creatinine was then elevated in the past. She does have slightly increased GFR. She is drinking fluids here her IV infiltrated and we did not reestablish IV because she is drinking plenty of fluids here. She does do suppositories at home. Advised her she needs to increase her fluids. She needs to use Metamucil. And advised her to follow-up with her doctor in 1 week and she needs to get a repeat basic metabolic panel that can be done at her doctor's office in 1 week return here immediately if increased symptoms decreased urine output any abdominal pain or she has no bowel movement. At this point time she is not fecally impacted. Her CT of the abdomen pelvis full report reviewed does show some fecal retention constipation but there is not a large bolus of stool and on digital exam I did not feel significant stool that I could remove. She does have a hiatal hernia. There is no acute surgical abdominal process. No acute obstruction. Patient feels better she is drinking water here will like to go home. Her brother is ronaldo pick her up. [GS] ED Course User Index [GS] Ender Atkins MD Diagnoses as of 04/09/242022 Constipation, unspecified constipation type Elevated serum creatinine Diagnostics considered but not indicated based on history, physical, testing: None External records reviewed: Patient records patient has a history of chronic kidney disease hypertension seen her doctor on 10/12/2023 for this. Also had problems with constipation seen on 10/22/2023. Radiologic diagnostics interpreted by me: film images such as CT, Ultrasound and MRI are read by the radiologist. Plain radiographic images are visualized and preliminarily interpreted by the emergency physician with the below findings: CT scan(s) radiology full report reviewed as above Discussions with other clinicians: None Chronic conditions impacting care: Vertigo anemia cancer hypertension shortness of breath kidney disease bradycardia constipation Social determinants of health affecting care: None Shared decision making: Patient agrees to treatment plan Patient would like to go home. She feels better. Tolerating p.o. well. I had extensive discussion with her the importance of increasing her fiber Metamucil and also following up closely regarding her kidney function. ED Medications managed: Medications sodium chloride 0.9 % bolus 500 mL (0 mL IntraVENous Stopped 04/09/24 006) Prescription drugs prescribed: PROCEDURES: Unless otherwise noted below, none Procedures IMPRESSION 1. Constipation, unspecified constipation type 2. Elevated serum creatinine DISPOSITION/PLAN DISPOSITION Discharge 04/09/2024 08:21:48 PM PATIENT REFERRED TO: Divina Smart DO [address] [place] [id number] In 1 week DISCHARGE MEDICATIONS: New Prescriptions No medications on file @[facility]([id number]:LAST:1)@ (Comment: Please notethis report has been produced using speech recognition software and may contain errors related to that system including errors in grammar, punctuation, and spelling, as well as words and phrases that may be inappropriate.If there is any questions or concerns please feel free to contact the dictating provider for clarification). Ender Atkins MD (electronically signed) Attending Emergency Physician Ender Atkins MD 04/09/242023 [facility] 08-21-2023 Emergency department Note Pt had very large amount of stool-hat placed in commode nearly full of stool. Pt states has pain to rectum but otherwise feels much better. Advised that will be discharged shortly and to call for ride. Radha Nichole RN 08/21/23 1120 [facility] 08-21-2023 Emergency department Note Pt had very large amount of stool-hat placed in commode nearly full of stool. Pt states has pain to rectum but otherwise feels much better. Advised that will be discharged shortly and to call for ride. Radha Nichole RN 08/21/23 1120 Pt pressed call button asking to get back to bed from [facility]. Pt has had a large BM. Pt asks RN to wipe for her; wipes were in reach but she did not wipe herself. Pt then states this RN is going to have to help get her legs back into the bed. Assistance provided with pts legs. Brooke Blank RN 08/21/23 1120 Up on bedside commode c/o nausea. Physician aware Radha Nichole RN 08/21/[address] [facility] ED EMERGENCY DEPARTMENT ENCOUNTER Pt Name: Gonzalo Lei Birthdate 1935 Date of evaluation: 08/21/2023 Provider: Janet Macias MD CHIEF COMPLAINT Chief Complaint Patient presents with Constipation HISTORY OF PRESENT ILLNESS (Location/Symptom, Timing/Onset, Context/Setting, Quality, Duration, Modifying Factors, Severity) Note limiting factors. I wore a surgical mask for the entirety of this encounter. Gonzalo Lei is a 87 y.o. female with a past medical history of anemia, arthritis, gout, htn, constipation presenting with constipation for four days now with painful rectal stool ball that she cannot pass. Has tried stool softeners, miralax, home enema, with no relief. Rectal discomfort only, no abdominal pain, nausea, or vomiting. Did not take her home blood pressure medication yet this morning. Past Medical history reviewed. REVIEW OF SYSTEMS Negative except for above HPI Review of Systems PAST MEDICAL HISTORY Past Medical History: Diagnosis Date Anemia Arthritis Cancer (CMS/HCC) (HCC) Skin arm and leg GERD (gastroesophageal reflux disease) Gout Hypertension Psoriasis SOB (shortness of breath) Thyroid disease Vertigo SURGICAL HISTORY Past Surgical History: Procedure Laterality Date AORTIC VALVE REPLACEMENT 2018 BLADDER SUSPENSION 2010 w/mesh HERNIA REPAIR 4 times [place], 1979, 2007,2010, 2005 HIATAL HERNIA REPAIR 10/21/2016 lap hiatal hernia, lap [place], upper GI endoscopy, dr. beltran ach HYSTERECTOMY 1998 SKIN CANCER EXCISION SMALL INTESTINE SURGERY 1979 UPPER GASTROINTESTINAL ENDOSCOPY 07/28/2016 CURRENT MEDICATIONS Previous Medications FUROSEMIDE (LASIX) 20 MG TABLET Take 1 tablet (20 mg) by mouth daily. Do not start before September 13, 2022. IPRATROPIUM-ALBUTEROL (DUO-NEB) 0.5-2.5 MG/3 ML NEBULIZER SOLUTION Take 3 mL by nebulization 4 times daily as needed for shortness of breath. LEVOTHYROXINE (SYNTHROID, LEVOXYL) 125 MCG TABLET Take 125 mcg by mouth daily. LOSARTAN (COZAAR) 50 MG TABLET Take 25 mg by mouth daily. MELATONIN 5 MG TABLET Take 1 tablet (5 mg) by mouth Nightly as needed. PANTOPRAZOLE (PROTONIX) 40 MG EC TABLET Take 1 tablet (40 mg) by mouth daily (before lunch). Do not crush, chew, or split. Do not start before September 12, 2022. ALLERGIES Levofloxacin FAMILY HISTORY Family History Problem Relation Name Age of Onset Hypertension Mother Colon cancer Neg Hx Hypertension Father SOCIAL HISTORY Social History Socioeconomic History Marital status: Tobacco Use Smoking status: Never Smokeless tobacco: Never Substance and Sexual Activity Alcohol use: No Drug use: No Social Determinants of Health Financial Resource Strain: Medium Risk (09/09/2022) Overall Financial Resource Strain (CARDIA) Difficulty of Paying Living Expenses: Somewhat hard Food Insecurity: No Food Insecurity (09/09/2022) Hunger Vital Sign Worried About Running Out of Food in the Last Year: Never true Ran Out of Food in the Last Year: Never true Transportation Needs: Unmet Transportation Needs (09/09/2022) PRAPARE - Transportation Lack of Transportation (Medical): Yes Lack of Transportation (Non-Medical): Yes Physical Activity: Inactive (09/09/2022) Exercise Vital Sign Days of Exercise per Week: 0 days Minutes of Exercise per Session: 0 min Stress: Stress Concern Present (09/09/2022) [employer] - Occupational Stress Questionnaire Feeling of Stress : Rather much Social Connections: Moderately Integrated (09/09/2022) Social Connection and Isolation Panel [NHANES] Frequency of Communication with Friends and Family: Twice a week Frequency of Social Gatherings with Friends and Family: Once a week Attends Alevism Services: 1 to 4 times per year Active Member of Clubs or Organizations: No Attends Club or Organization Meetings: 1 to 4 times per year Marital Status: Intimate Partner Violence: Not At Risk (12/24/2022) Humiliation, Afraid, Rape, and Kick questionnaire Fear of Current or Ex-Partner: No Emotionally Abused: No Physically Abused: No Sexually Abused: No Housing Stability: High Risk (09/09/2022) Housing Stability Vital Sign Unable to Pay for Housing in the Last Year: No Number of Places Lived in the Last Year: 1 Unstable Housing in the Last Year: Yes SCREENINGS PHYSICAL EXAM (up to 7 for level 4, 8 or more for level 5) @EDTRIAGEVSS@ Physical Exam Vitals and nursing note reviewed. Constitutional: General: She is not in acute distress. Appearance: Normal appearance. Comments: Appears anxious, uncomfortable HENT: Head: Normocephalic and atraumatic. Nose: Nose normal. Eyes: Conjunctiva/sclera: Conjunctivae normal. Cardiovascular: Rate and Rhythm: Normal rate. Pulmonary: Effort: Pulmonary effort is normal. No respiratory distress. Abdominal: General: Abdomen is flat. There is no distension. Tenderness: There is no abdominal tenderness. There is no guarding. Genitourinary: Comments: Normal external rectal exam - medium to large stool ball felt on TERE Skin: General: Skin is warm and dry. Capillary Refill: Capillary refill takes less than 2 seconds. Neurological: Mental Status: She is alert. Psychiatric: Behavior: Behavior normal. EMERGENCY DEPARTMENT COURSE and DIFFERENTIAL DIAGNOSIS/MDM: Vitals: Vitals: 08/21/23 0843 08/21/23 1020 BP: (!) 180/102 (!) 140/91 Pulse: 70 90 Resp: 14 14 Temp: 36.6 C (97.9 F) TempSrc: Oral SpO2: 97% 98% Weight: 99.8 kg (220 lb) Height: 1.524 m (5') Medications losartan (Cozaar) tablet 50 mg (50 mg Oral Given 7/13/24 0854) sodium phosphate (Fleets) 7-19 GM/118ML enema 133 mL (133 mL Rectal Given 08/21/23 1051) Medical Decision Making ADDITIONAL MEDICAL DESICION MAKING IS DOCUMENTED IN THE ED COURSE. PLEASE REFER TO ED COURSE. Gonzalo Lei is a 87 y.o. female with a past medical history of anemia, arthritis, gout, htn, constipation presenting with constipation for four days now with painful rectal stool ball that she cannot pass. Has tried stool softeners, miralax, home enema, with no relief. Rectal discomfort only, no abdominal pain, nausea, or vomiting. Did not take her home blood pressure medication yet this morning. Normal external rectal exam - medium to large stool ball felt on TERE. Plan: home BP meds, soap suds enema Diagnostic tests considered but not performed: CT considered however no abdominal pain or ttp, and palpable stool ball on TERE, sx relieved with enema. Prescription drugs considered: Home enema supply Problems Addressed: Constipation, unspecified constipation type: complicated acute illness or injury Risk OTC drugs. Prescription drug management. . All independent interpretations of EKGs are documented in [facility]. ED Course as of 08/21/23 1120 Sat Aug 21, 2023 1118 Small bowel movement with soapsuds enema, large bowel movement after Fleet enema. Patient feels much better. Patient requesting discharge. Will discharge with outpatient prescription for outpatient enema. [BJ] ED Course User Index [BJ] Janet Macias MD Diagnoses as of 08/21/23 1120 Constipation, unspecified constipation type CONSULTS: None PROCEDURES: Unless otherwise noted below, none Procedures FINAL IMPRESSION 1. Constipation, unspecified constipation type DISPOSITION/PLAN DISPOSITION Discharge 08/21/2023 11:19:04 AM PATIENT REFERRED TO: Divina Smart DO [address] [place] [address] [phone] DISCHARGE MEDICATIONS: New Prescriptions MINERAL OIL ENEMA Insert 1 enema into the rectum Once as needed for constipation for up to 1 dose. @[facility]([id number]:LAST:1)@ (Please note: Portions of this note were completed with a voice recognition program. Efforts were made to edit the dictations but occasionally words and phrases are mis-transcribed.) Form [id number] Janet Macias MD (electronically signed) Emergency Medicine Provider Janet Macias MD 08/21/23 1120 To room 7 via EMS. C/o constipation for 4 days. Has tried several things at home with no results. No dysuria, vomiting or belly pain but has pain to rectum. documented in this encounter [facility] 08-21-2023 Hospital Discharge instructions Janet Macias MD - 08/21/2023 11:19 AM EDT [facility] were seen in [facility] emergency department for constipation. Your constipation was relieved in the ED with enemas. You have been provided with a prescription for an enema. Please take as directed. Please follow-up with your primary care physician as soon as possible, and return to the ER if you develop any further chest pain, shortness of breath, nausea, vomiting, severe pain, inability to eat or drink without vomiting, weakness, slurred speech, or any other symptoms that concern you. Patient Education Constipation, Adult ED General Information You came to the Emergency Department (ED) for constipation. This is the medical term for when your bowel movements are too hard, too small, or don t happen often enough. It can also be hard to have a bowel movement. Most of the time, you can treat your constipation at home. What care is needed at home? Call your regular doctor to let them know you were in the ED. Make a follow-up appointment if you were told to. Eat high fiber foods. These include whole grains, fruits, and vegetables. Drink plenty of water and other fluids each day. This helps to keep your bowel movements soft. Set a regular schedule to try and have a bowel movement. Do not ignore the urge to have a bowel movement. Give yourself plenty of time to have a bowel movement. Do mild exercise like taking a walk. Sitting in a warm bath can help you relax and feel like you can have a bowel movement. Talk to your regular doctor before you use laxatives or enemas regularly. When do I need to get emergency help? Call for an ambulance right away if: You have sudden severe belly pain or the pain is constant. Your belly becomes very hard or swollen. You start throwing up blood. You pass a lot of blood in your bowel movements. Return to the ED if: Your bowel movements are black or tar colored. You throw up a lot and can t keep liquids down. You have a fever of 102.2 F (39 C) or higher. When do I need to call the doctor? You have a fever of 100.4 F (38 C) or higher or chills. Your bowel movements have a small amount (less than 1 teaspoon or 5 mL) of blood in them. You feel that something is not right in your belly. You have hemorrhoids. You have hard bowel movements for more than 2 weeks with belly pain. You have new or worsening symptoms. Last Reviewed Date 2020-04-25 Consumer Information Use and Disclaimer This generalized information is a limited summary of diagnosis, treatment, and/or medication information. It is not meant to be comprehensive and should be used as a tool to help the user understand and/or assess potential diagnostic and treatment options. It does NOT include all information about conditions, treatments, medications, side effects, or risks that may apply to a specific patient. It is not intended to be medical advice or a substitute for the medical advice, diagnosis, or treatment of a health care provider based on the health care provider's examination and assessment of a patient s specific and unique circumstances. Patients must speak with a health care provider for complete information about their health, medical questions, and treatment options, including any risks or benefits regarding use of medications. This information does not endorse any treatments or medications as safe, effective, or approved for treating a specific patient. [employer] and its affiliates disclaim any warranty or liability relating to this information or the use thereof. The use of this information is governed by the Terms of Use, available at https://www.[employer].com/en/ know/mtvponqw-npcrjmijaettr-kebgb Copyright Copyright 2021 [employer] and its affiliates and/or licensors. All rights reserved. documented in this encounter [facility] 08-21-2023 Emergency department Note Pt pressed call button asking to get back to bed [place] [facility]. Pt has had a large BM. Pt asks RN to wipe for her; wipes were in reach but she did not wipe herself. Pt then states this RN is going to have to help get her legs back into the bed. Assistance provided with pts legs. Brooke Blank RN 08/21/23 1120 [facility] 08-21-2023 Emergency department Note Up on bedside commode c/o nausea. Physician aware Radha Nichole RN 08/21/23 1102 [facility] 08-21-2023 Emergency department Triage note To room 7 via EMS. C/o constipation for 4 days. Has tried several things at home with no results. No dysuria, vomiting or belly pain but has pain to rectum. [facility] 08-21-2023 Phys[address] Emergency department Note [facility] ED EMERGENCY DEPARTMENT ENCOUNTER Pt Name: Gonzalo Lei Birthdate 1935 Date of evaluation: 08/21/2023 Provider: Janet Macias MD CHIEF COMPLAINT Chief Complaint Patient presents with Constipation HISTORY OF PRESENT ILLNESS (Location/Symptom, Timing/Onset, Context/Setting, Quality, Duration, Modifying Factors, Severity) Note limiting factors. I wore a surgical mask for the entirety of this encounter. Gonzalo Lei is a 87 y.o. female with a past medical history of anemia, arthritis, gout, htn, constipation presenting with constipation for four days now with painful rectal stool ball that she cannot pass. Has tried stool softeners, miralax, home enema, with no relief. Rectal discomfort only, no abdominal pain, nausea, or vomiting. Did not take her home blood pressure medication yet this morning. Past Medical history reviewed. REVIEW OF SYSTEMS Negative except for above HPI Review of Systems PAST MEDICAL HISTORY Past Medical History: Diagnosis Date Anemia Arthritis Cancer (CMS/HCC) (HCC) Skin arm and leg GERD (gastroesophageal reflux disease) Gout Hypertension Psoriasis SOB (shortness of breath) Thyroid disease Vertigo SURGICAL HISTORY Past Surgical History: Procedure Laterality Date AORTIC VALVE REPLACEMENT 2017 BLADDER SUSPENSION 2010 w/mesh HERNIA REPAIR 4 times [place], 1979, 2007,2010, 2005 HIATAL HERNIA REPAIR 10/21/2016 lap hiatal hernia, lap [place], upper GI endoscopy, dr. beltran ach HYSTERECTOMY 1998 SKIN CANCER EXCISION SMALL INTESTINE SURGERY 1979 UPPER GASTROINTESTINAL ENDOSCOPY 07/28/2016 CURRENT MEDICATIONS Previous Medications FUROSEMIDE (LASIX) 20 MG TABLET Take 1 tablet (20 mg) by mouth daily. Do not start before September 13, 2022. IPRATROPIUM-ALBUTEROL (DUO-NEB) 0.5-2.5 MG/3 ML NEBULIZER SOLUTION Take 3 mL by nebulization 4 times daily as needed for shortness of breath. LEVOTHYROXINE (SYNTHROID, LEVOXYL) 125 MCG TABLET Take 125 mcg by mouth daily. LOSARTAN (COZAAR) 50 MG TABLET Take 25 mg by mouth daily. MELATONIN 5 MG TABLET Take 1 tablet (5 mg) by mouth Nightly as needed. PANTOPRAZOLE (PROTONIX) 40 MG EC TABLET Take 1 tablet (40 mg) by mouth daily (before lunch). Do not crush, chew, or split. Do not start before September 12, 2022. ALLERGIES Levofloxacin FAMILY HISTORY Family History Problem Relation Name Age of Onset Hypertension Mother Colon cancer Neg Hx Hypertension Father SOCIAL HISTORY Social History Socioeconomic History Marital status: Tobacco Use Smoking status: Never Smokeless tobacco: Never Substance and Sexual Activity Alcohol use: No Drug use: No Social Determinants of Health Financial Resource Strain: Medium Risk (09/09/2022) Overall Financial Resource Strain (CARDIA) Difficulty of Paying Living Expenses: Somewhat hard Food Insecurity: No Food Insecurity (09/09/2022) Hunger Vital Sign Worried About Running Out of Food in the Last Year: Never true Ran Out of Food in the Last Year: Never true Transportation Needs: Unmet Transportation Needs (09/09/2022) PRAPARE - Transportation Lack of Transportation (Medical): Yes Lack of Transportation (Non-Medical): Yes Physical Activity: Inactive (09/09/2022) Exercise Vital Sign Days of Exercise per Week: 0 days Minutes of Exercise per Session: 0 min Stress: Stress Concern Present (09/09/2022) [employer] - Occupational Stress Questionnaire Feeling of Stress : Rather much Social Connections: Moderately Integrated (09/09/2022) Social Connection and Isolation Panel [NHANES] Frequency of Communication with Friends and Family: Twice a week Frequency of Social Gatherings with Friends and Family: Once a week Attends Alevism Services: 1 to 4 times per year Active Member of Clubs or Organizations: No Attends Club or Organization Meetings: 1 to 4 times per year Marital Status: Intimate Partner Violence: Not At Risk (12/24/2022) Humiliation, Afraid, Rape, and Kick questionnaire Fear of Current or Ex-Partner: No Emotionally Abused: No Physically Abused: No Sexually Abused: No Housing Stability: High Risk (09/09/2022) Housing Stability Vital Sign Unable to Pay for Housing in the Last Year: No Number of Places Lived in the Last Year: 1 Unstable Housing in the Last Year: Yes SCREENINGS PHYSICAL EXAM (up to 7 for level 4, 8 or more for level 5) @EDTRIAGEVSS@ Physical Exam Vitals and nursing note reviewed. Constitutional: General: She is not in acute distress. Appearance: Normal appearance. Comments: Appears anxious, uncomfortable HENT: Head: Normocephalic and atraumatic. Nose: Nose normal. Eyes: Conjunctiva/sclera: Conjunctivae normal. Cardiovascular: Rate and Rhythm: Normal rate. Pulmonary: Effort: Pulmonary effort is normal. No respiratory distress. Abdominal: General: Abdomen is flat. There is no distension. Tenderness: There is no abdominal tenderness. There is no guarding. Genitourinary: Comments: Normal external rectal exam - medium to large stool ball felt on TERE Skin: General: Skin is warm and dry. Capillary Refill: Capillary refill takes less than 2 seconds. Neurological: Mental Status: She is alert. Psychiatric: Behavior: Behavior normal. EMERGENCY DEPARTMENT COURSE and DIFFERENTIAL DIAGNOSIS/MDM: Vitals: Vitals: 08/21/23 0843 08/21/23 1020 BP: (!) 180/102 (!) 140/91 Pulse: 70 90 Resp: 14 14 Temp: 36.6 C (97.9 F) TempSrc: Oral SpO2: 97% 98% Weight: 99.8 kg (220 lb) Height: 1.524 m (5') Medications losartan (Cozaar) tablet 50 mg (50 mg Oral Given 08/21/23 0854) sodium phosphate (Fleets) 7-19 GM/118ML enema 133 mL (133 mL Rectal Given 08/21/23 1051) Medical Decision Making ADDITIONAL MEDICAL DESICION MAKING IS DOCUMENTED IN THE ED COURSE. PLEASE REFER TO ED COURSE. Gonzalo Lei is a 87 y.o. female with a past medical history of anemia, arthritis, gout, htn, constipation presenting with constipation for four days now with painful rectal stool ball that she cannot pass. Has tried stool softeners, miralax, home enema, with no relief. Rectal discomfort only, no abdominal pain, nausea, or vomiting. Did not take her home blood pressure medication yet this morning. Normal external rectal exam - medium to large stool ball felt on TERE. Plan: home BP meds, soap suds enema Diagnostic tests considered but not performed: CT considered however no abdominal pain or ttp, and palpable stool ball on TERE, sx relieved with enema. Prescription drugs considered: Home enema supply Problems Addressed: Constipation, unspecified constipation type: complicated acute illness or injury Risk OTC drugs. Prescription drug management. . All independent interpretations of EKGs are documented in [facility]. ED Course as of 08/21/23 1120 Sat Aug 21, 2023 1118 Small bowel movement with soapsuds enema, large bowel movement after Fleet enema. Patient feels much better. Patient requesting discharge. Will discharge with outpatient prescription for outpatient enema. [BJ] ED Course User Index [BJ] Janet Macias MD Diagnoses as of 08/21/23 1120 Constipation, unspecified constipation type CONSULTS: None PROCEDURES: Unless otherwise noted below, none Procedures FINAL IMPRESSION 1. Constipation, unspecified constipation type DISPOSITION/PLAN DISPOSITION Discharge 08/21/2023 11:19:04 AM PATIENT REFERRED TO: Divina Smart DO [address] [place] [address] [id number] DISCHARGE MEDICATIONS: New Prescriptions MINERAL OIL ENEMA Insert 1 enema into the rectum Once as needed for constipation for up to 1 dose. @[id number]:LAST:1)@ (Please note: Portions of this note were completed with a voice recognition program. Efforts were made to edit the dictations but occasionally words and phrases are mis-transcribed.) Form [id number] Janet Macias MD (electronically signed) Emergency Medicine Provider Janet Macias MD 08/21/23 1120 [facility] 07-28-2023 Hospital Discharge instructions Patient Education 07/28/2023 15:27:14 Abdominal Pain, Unknown Cause, (Female) Unknown Causes of Abdominal Pain (Female) The exact cause of your belly (abdominal) pain is not clear. This does not mean that this is something to worry about. Everyone likes to know the exact cause of the problem. But sometimes with belly pain, there is no clear-cut cause, and this could be a good thing. The good news is that your symptoms can be treated, and you will feel better. Your condition does not seem serious now. But sometimes the signs of a serious problem may take more time to appear. For this reason, it is important for you to watch for any new symptoms, problems, or worsening of your condition. Over the next few days, the abdominal pain may come and go. Or it may be constant. Other common symptoms can include nausea and vomiting. Sometimes it can be difficult to tell if you feel nauseous. You may just feel bad and not connect that feeling to nausea. Constipation, diarrhea, and a fever may go along with the pain. The pain may continue even if treated correctly over the following days. Depending on how things go, sometimes the cause can become clear and may need more or different treatment. Additional evaluations, medicines, or tests may also be needed. Home care Your healthcare provider may prescribe medicine for pain, symptoms, or an infection. Follow the healthcare provider's instructions for taking these medicines. General care Rest as much as you can until your next exam. No strenuous activities. Try to find positions that ease discomfort. A small pillow placed on the abdomen may help relieve pain. Something warm on your abdomen (such as a heating pad) may help, but be careful not to burn yourself. Diet Don t force yourself to eat, especially if having cramps, vomiting, or diarrhea. Water is important so you don't get dehydrated. Soup may also be good. Sports drinks may also help, especially if they are not too acidic. Don't drink sugary drinks as this can make things worse. Take liquids in small amounts. Don t guzzle them. Caffeine sometimes makes the pain and cramping worse. Don t take dairy products if you have vomiting or diarrhea. Don't eat large amounts at a time. Wait a few minutes between bites. Eat a diet low in fiber (called a low-residue diet). Foods allowed include refined breads, white rice, fruit and vegetable juices without pulp, tender meats. These foods will pass more easily through the intestine. Don t have whole-grain foods, whole fruits and vegetables, meats, seeds and nuts, fried or fatty foods, dairy, alcohol and spicy foods until your symptoms go away. Follow-up care Follow up with your healthcare provider, or as advised, if your pain does not begin to improve in the next 24 hours. Call 911 Call 911 if any of these occur: Trouble breathing Confusion Fainting or loss of consciousness Rapid heart rate Seizure When to seek medical advice Call your healthcare provider right away if any of these occur: Pain gets worse or moves to the right lower abdomen New or worsening vomiting or diarrhea Swelling of the abdomen Unable to pass stool for more than 3 days Fever of 100.4 F (38 C) or higher, or as directed by your healthcare provider. Blood in vomit or bowel movements (dark red or black color) Yellow color of eyes and skin (jaundice) Weakness, dizziness Chest, arm, back, neck, or jaw pain Unexpected vaginal bleeding or missed period Can't keep down liquids or water and you are getting dehydrated [id number] [employer]. [address] [place] [address], [place] [address]. All rights reserved. This information is not intended as a substitute for professional medical care. Always follow your healthcare professional's instructions. Follow Up Care 07/28/2023 12:49:51 With:LUIZ PEREIRA APRN-[employer]ER Address: [address] [facility] [place] [address] [phone] When:2-4 days [facility] 07-28-2023 Note Discharge Instructions Thank you for allowing [facility] to assist you with your healthcare needs. The following is important discharge information regarding your hospital visit. Diagnosis from Today's Visit Abdominal pain in female What to Do Next Instructions from Your Care Team No qualifying data available. Post Acute Orders No qualifying data available. You Need to Schedule the Following Appointments Follow Up with LUIZ PEREIRA When:Within 2-4 days Where:[address] [facility] [place] [address] [phone] Allergies levoFLOXacin (Moderate) delerium Medications Please ask your primary doctor or pharmacist before taking any other medication not listed, including over the counter drugs, herbal medications, vitamins and or supplements as they may interact with your home medications. What How Much When Why Instructions Last Dose Changed ondansetron (ondansetron 4 mg oral tablet) take 1 tablet by mouth every 8 hours if needed Changed ondansetron (Zofran 8 mg oral tablet) 1 tab(s) by mouth Two (2) times a day Duration: 5 Days Printed Prescription Unchanged acetaminophen (Tylenol) by mouth As needed for as needed for pain Unchanged albuterol (albuterol 2.5 mg/ 3 mL (0.083%) inhalation solution) 1 by inhalation Every 6 hours as needed for as needed for wheezing COPD - Chronic obstructive pulmonary disease Unchanged calcium-vitamin D (Calcium 600+D oral tablet) 1 tab(s) by mouth Every day Unchanged furosemide (furosemide 40 mg oral tablet) 1 tab(s) by mouth Once a day Unchanged levothyroxine (levothyroxine 100 mcg (0.1 mg) oral tablet) 1 tab(s) by mouth Once a day before a meal Duration: 90 Days as a single daily dose before breakfast. avoid antacids, calcium, or iron for at least 4 hrs before or 4 hrs after Unchanged losartan (losartan 50 mg oral tablet) 1 tab(s) by mouth Once a day Unchanged multivitamin (Multivitamin) 1 tab(s) by mouth Every day Unchanged omeprazole (omeprazole 40 mg oral delayed release capsule) 1 cap by mouth Once a day Please take this list to your next doctor s visit. Bring all medications you take, including over the counter medications, herbals and other supplements with you to your doctor s visit. Patients and families are reminded to discard old lists and to update any records with all medication providers or retail pharmacies. Medication Leaflets ondansetron (oral) (julio siddiqui) What is the most important information I should know about ondansetron? You should not use ondansetron if you are also using apomorphine (Apokyn). What is ondansetron? Ondansetron blocks the actions of chemicals in the body that can trigger nausea and vomiting. Ondansetron is used to prevent nausea and vomiting that may be caused by surgery, cancer chemotherapy, or radiation treatment. Ondansetron may be used for purposes not listed in this medication guide. What should I discuss with my health care provider before taking ondansetron? You should not use ondansetron if: you are also using apomorphine (Apokyn); or you are allergic to ondansetron or similar medicines (dolasetron, granisetron, palonosetron). To make sure ondansetron is safe for you, tell your doctor if you have: liver disease; an electrolyte imbalance (such as low levels of potassium or magnesium in your blood); congestive heart failure, slow heartbeats; a personal or family history of long QT syndrome; or a blockage in your digestive tract (stomach or intestines). Ondansetron is not expected to harm an unborn baby. Tell your doctor if you are . It is not known whether ondansetron passes into breast milk or if it could harm a nursing baby. Tell your doctor if you are breast-feeding a baby. Ondansetron is not approved for use by anyone younger than 4 years old. Ondansetron orally disintegrating tablets may contain phenylalanine. Tell your doctor if you have phenylketonuria (PKU). How should I take ondansetron? Follow all directions on your prescription label. Do not take this medicine in larger or smaller amounts or for longer than recommended. Ondansetron can be taken with or without food. The first dose of ondansetron is usually taken before the start of your surgery, chemotherapy, or radiation treatment. Follow your doctor's dosing instructions very carefully. Take the ondansetron regular tablet with a full glass of water. To take the orally disintegrating tablet (Zofran ODT): Keep the tablet in its blister pack until you are ready to take it. Open the package and peel back the foil. Do not push a tablet through the foil or you may damage the tablet. Use dry hands to remove the tablet and place it in your mouth. Do not swallow the tablet whole. Allow it to dissolve in your mouth without chewing. Swallow several times as the tablet dissolves. To use ondansetron oral soluble film (strip) (Zuplenz): Keep the strip in the foil pouch until you are ready to use the medicine. Using dry hands, remove the strip and place it on your tongue. It will begin to dissolve right away. Do not swallow the strip whole. Allow it to dissolve in your mouth without chewing. Swallow several times after the strip dissolves. If desired, you may drink liquid to help swallow the dissolved strip. Wash your hands after using Zuplenz. Measure liquid medicine with the dosing syringe provided, or with a special dose-measuring spoon or medicine cup. If you do not have a dose-measuring device, ask your pharmacist for one. Store at room temperature away from moisture, heat, and light. Store liquid medicine in an upright position. What happens if I miss a dose? Take the missed dose as soon as you remember. Skip the missed dose if it is almost time for your next scheduled dose. Do not take extra medicine to make up the missed dose. What happens if I overdose? Seek emergency medical attention or call the Poison Help line at . Overdose symptoms may include sudden loss of vision, severe constipation, feeling light-headed, or fainting. What should I avoid while taking ondansetron? Ondansetron may impair your thinking or reactions. Be careful if you drive or do anything that requires you to be alert. What are the possible side effects of ondansetron? Get emergency medical help if you have signs of an allergic reaction: rash, hives; fever, chills, difficult breathing; swelling of your face, lips, tongue, or throat. Call your doctor at once if you have: severe constipation, stomach pain, or bloating; headache with chest pain and severe dizziness, fainting, fast or pounding heartbeats; fast or pounding heartbeats; jaundice (yellowing of the skin or eyes); blurred vision or temporary vision loss (lasting from only a few minutes to several hours); high levels of serotonin in the body--agitation, hallucinations, fever, fast heart rate, overactive reflexes, nausea, vomiting, diarrhea, loss of coordination, fainting. Common side effects may include: diarrhea or constipation; headache; drowsiness; or tired feeling. This is not a complete list of side effects and others may occur. Call your doctor for medical advice about side effects. You may report side effects to FDA at 4-177-UJF-8478. What other drugs will affect ondansetron? Ondansetron can cause a serious heart problem, especially if you use certain medicines at the same time, including antibiotics, antidepressants, heart rhythm medicine, antipsychotic medicines, and medicines to treat cancer, malaria, HIV or AIDS. Tell your doctor about all medicines you use, and those you start or stop using during your treatment with ondansetron. Taking ondansetron while you are using certain other medicines can cause high levels of serotonin to build up in your body, a condition called 'serotonin syndrome,' which can be fatal. Tell your doctor if you also use: medicine to treat depression; medicine to treat a psychiatric disorder; a narcotic (opioid) medication; or medicine to prevent nausea and vomiting. This list is not complete and many other drugs can interact with ondansetron. This includes prescription and blty-hnl-inkmgec medicines, vitamins, and herbal products. Give a list of all your medicines to any healthcare provider who treats you. Where can I get more information? Your pharmacist can provide more information about ondansetron. Remember, keep this and all other medicines out of the reach of children, never share your medicines with others, and use this medication only for the indication prescribed. Every effort has been made to ensure that the information provided by [employer] is accurate, up-to-date, and complete, but no guarantee is made to that effect. Drug information contained herein may be time sensitive. [employer] information has been compiled for use by healthcare practitioners and consumers in the [place] and therefore [employer] does not warrant that uses outside of the [place] are appropriate, unless specifically indicated otherwise. [employer] drug information does not endorse drugs, diagnose patients or recommend therapy. [employer] drug information is an informational resource designed to assist licensed healthcare practitioners in caring for their patients and/or to serve consumers viewing this service as a supplement to, and not a substitute for, the expertise, skill, knowledge and judgment of healthcare practitioners. The absence of a warning for a given drug or drug combination in no way should be construed to indicate that the drug or drug combination is safe, effective or appropriate for any given patient. [facility] does not assume any responsibility for any aspect of healthcare administered with the aid of information [facility] provides. The information contained herein is not intended to cover all possible uses, directions, precautions, warnings, drug interactions, allergic reactions, or adverse effects. If you have questions about the drugs you are taking, check with your doctor, nurse or pharmacist. Copyright 4810-4081 [facility]. Version: 16.. Revision Date: 09/10/2022. Education Materials Unknown Causes of Abdominal Pain (Female) The exact cause of your belly (abdominal) pain is not clear. This does not mean that this is something to worry about. Everyone likes to know the exact cause of the problem. But sometimes with belly pain, there is no clear-cut cause, and this could be a good thing. The good news is that your symptoms can be treated, and you will feel better. Your condition does not seem serious now. But sometimes the signs of a serious problem may take more time to appear. For this reason, it is important for you to watch for any new symptoms, problems, or worsening of your condition. Over the next few days, the abdominal pain may come and go. Or it may be constant. Other common symptoms can include nausea and vomiting. Sometimes it can be difficult to tell if you feel nauseous. You may just feel bad and not connect that feeling to nausea. Constipation, diarrhea, and a fever may go along with the pain. The pain may continue even if treated correctly over the following days. Depending on how things go, sometimes the cause can become clear and may need more or different treatment. Additional evaluations, medicines, or tests may also be needed. Home care Your healthcare provider may prescribe medicine for pain, symptoms, or an infection. Follow the healthcare provider's instructions for taking these medicines. General care Rest as much as you can until your next exam. No strenuous activities. Try to find positions that ease discomfort. A small pillow placed on the abdomen may help relieve pain. Something warm on your abdomen (such as a heating pad) may help, but be careful not to burn yourself. Diet Don t force yourself to eat, especially if having cramps, vomiting, or diarrhea. Water is important so you don't get dehydrated. Soup may also be good. Sports drinks may also help, especially if they are not too acidic. Don't drink sugary drinks as this can make things worse. Take liquids in small amounts. Don t guzzle them. Caffeine sometimes makes the pain and cramping worse. Don t take dairy products if you have vomiting or diarrhea. Don't eat large amounts at a time. Wait a few minutes between bites. Eat a diet low in fiber (called a low-residue diet). Foods allowed include refined breads, white rice, fruit and vegetable juices without pulp, tender meats. These foods will pass more easily through the intestine. Don t have whole-grain foods, whole fruits and vegetables, meats, seeds and nuts, fried or fatty foods, dairy, alcohol and spicy foods until your symptoms go away. Follow-up care Follow up with your healthcare provider, or as advised, if your pain does not begin to improve in the next 24 hours. Call 911 Call 911 if any of these occur: Trouble breathing Confusion Fainting or loss of consciousness Rapid heart rate Seizure When to seek medical advice Call your healthcare provider right away if any of these occur: Pain gets worse or moves to the right lower abdomen New or worsening vomiting or diarrhea Swelling of the abdomen Unable to pass stool for more than 3 days Fever of 100.4 F (38 C) or higher, or as directed by your healthcare provider. Blood in vomit or bowel movements (dark red or black color) Yellow color of eyes and skin (jaundice) Weakness, dizziness Chest, arm, back, neck, or jaw pain Unexpected vaginal bleeding or missed period Can't keep down liquids or water and you are getting dehydrated [id number] [employer]. [address] [place] [address]60. All rights reserved. This information is not intended as a substitute for professional medical care. Always follow your healthcare professional's instructions. Additional Information VACCINATE! IT SAVES LIVES! Members of the community who have not yet received the COVID-19 vaccine and would like to receive it can visit one of [facility] vaccine clinics. There are many vaccine clinic locations within the [facility]. For locations and available times, please visit [email or web address] It is important to note that some COVID mobile vaccine clinics are held outdoors and may be canceled in rainy or stormy conditions. To learn more about pediatric vaccinations (ages 5-11), we invite you to visit the [employer] webpage. [email or web address] [email or web address]-[email or web address] [email or web address].html To learn more about the COVID-19 vaccine, we invite you to visit the CDC website for a list of frequently asked questions. https://www.cdc.gov/coronavirus/2 019-ncov/vaccines/faq.html [facility] Patient Portal Access Instructions: Stay connected with your healthcare team and access your personal medical information anytime with the [facility] Patient Portal. If you would like a full copy of your medical records please contact the [facility] Medical Records Department Wednesday through Wednesday between 8a.m. and 4:30p.m. Please follow the directions below to access the portal: 1.Access the email account you provided upon registration to the hospital.2.Look for an invitation email from [facility].3.Open the email and access the invitation link: Accept Invitation to [facility]4.Fill in the required omalley to create your account. Sign into www.[employer] with your username and password that you created in the above steps to stay up to date. You can then view a summary of results, a summary of your visits, and the ability to download your summaries to your computer or send the information securely to a physician. Remember that your healthcare information is confidential, so carefully consider who you will allow to register on the [facility] Patient Portal for access to your information. You can also access the [facility] Patient Portal on the [employer]. Simply click on Health Records under Health Data and then click on the [employer] logo. HOW TO SAFELY DISPOSE OF PRESCRIPTION MEDICATIONS Please use one of the following methods to safely dispose of your unused medications. 1.Use a drug disposal kit: the drug disposal pouch allows you to safely discard your old and unused drugs. Ask your nurse to give you one when you are discharged.2.Visit a local take-back location: Many local pharmacies and police departments have programs that collect old and unwanted prescription drugs. Call your local pharmacy or go to http://[employer]/7B3Gt0g to find one close to you.3.Make use of household items: Use cat litter or old coffee grounds to dispose medications if other options are not available. Mix your drugs with these household products, seal them in an airtight container and throw it into the garbage. Call [facility]: [phone] to be sure your drugs can be disposed of in this way. Some medicines may require a different approach.4.Never flush your medications down the toilet. IF YOU HAVE BEEN PRESCRIBED AN OPIOIDS FOR PAIN If you have been prescribed an opioid (such as hydrocodone, oxycodone or morphine), it is critical to understand the possible side effects and risks of opioid pain medications. Even when taken as directed, opioids can have several side effects including: Tolerance, meaning you might need to take more of a medication for the same pain relief. Nausea, vomiting and/or constipation. Sleepiness, dizziness, dry mouth, confusion, depression or itching. Physical dependence, meaning you have withdrawal symptoms when a medication is stopped ? this can develop within a few days. KNOW YOUR RESPONSIBILITIES It is important to know exactly how much and how often to take the opioid pain medications you are prescribed. Never take opioids in higher amounts or more often than prescribed. Do not combine opioids with alcohol or other drugs that cause drowsiness, such as benzodiazepines, also known as benzos, including diazepam and alprazolam, muscle relaxants or sleep aids. Never sell or share prescription opioids. This is illegal. Store opioids in a secure place and out of reach of others (including children, family, friends and visitors). The last page(s) of this document has been signed and retained as a CHART COPY Signatures Patient Education Materials Abdominal Pain, Unknown Cause, (Female) Medication Leaflets ondansetron (oral) My discharge plan and instructions have been reviewed and explained to me and IYURI DONNA V understand my current condition and have read and understand these discharge instructions. I have received a written copy of the plan/instructions. If I have questions, I am aware that I should contact my doctor. 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 Multiplanar reformatted images are provided for review. Automated exposure control, iterative reconstruction, and/or weight based adjustment of the mA/kV was utilized to reduce the radiation dose to as low as reasonably achievable. COMPARISON: None. HISTORY: ORDERING SYSTEM PROVIDED HISTORY: Reason for Exam: Bladder cramping, hx of skin CA pain FINDINGS: Minor degenerative changes are noted in the spine. No other osseous abnormality identified. The lung bases are unremarkable. Tiny scattered liver cysts are present. No other liver abnormality. The spleen, adrenal glands and right kidney are normal. There is prominent atrophy of the left kidney which has a lobulated appearance as well. This may be on the basis of renal artery stenosis as there is significant atherosclerotic change at the proximal left renal artery. Gastric postoperative changes are noted. Small sliding hiatal hernia noted. No pancreatic abnormality is visible. No adenopathy, free air or free fluid seen. The urinary bladder is grossly normal. Mild sigmoid diverticulosis is present with scattered diverticula elsewhere as well. No other GI tract abnormality seen. No additional contributory abnormality. IMPRESSION: No acute abnormality identified on this exam. Sigmoid diverticulosis without diverticulitis. Interpreted by: Chandler Lloyd MD Preliminary Report By: Chandler Lloyd MD Electronically signed By Chandler Lloyd MD Dictated Date: 07/28/2023 3:12:40 PM Prelim Date: 07/28/2023 3:15:20 PM Sign Date: 07/28/2023 3:15:20 PM Ordering Provider: NINO [facility] 07-28-2023 Note Sinus rhythm Left atrial enlargement IVCD, consider atypical LBBB BORDERLINE ECG Electronic Signature: NELY PEREZ DO 07/28/2023 14:09:53 [facility] 07-28-2023 Note ORIGINAL EXAMINATION: ONE XRAY VIEW OF THE CHEST07/28/2023 1:41 pm COMPARISON: CT chest 02/15/2023, x-ray chest 03/14/2018 HISTORY: ORDERING SYSTEM PROVIDED HISTORY: Reason for Exam: cough, chest pain FINDINGS: The cardiomediastinal contours are normal.Bilateral low lung volumes with hypoventilatory changes. Bibasilar atelectasis. There is no consolidation, vascular congestion, large pleural effusion, or pneumothorax. There are no acute abnormalities to osseous structures. Stable appearance of right elevated hemidiaphragm with likely colonic interposition underneath. IMPRESSION: No acute radiographic findings. Low lung volumes with hypoventilatory changes. I have personally reviewed the images of this examination and agree with the resident's findings and interpretation. Interpreted by: Leopoldo Mccormack MD Preliminary Report By: Freddy Garsia Electronically signed By Leopoldo Mccormack MD Dictated Date: 07/28/2023 1:51:27 PM Prelim Date: 07/28/2023 2:00:02 PM Sign Date: 07/28/2023 2:00:02 PM Ordering Provider: NINO DIAZ [facility] 05-14-2023 Hospital Discharge instructions Shawn Duvall MD - 05/14/2023 5:44 PM EDT Tylenol as needed for pain The following attachments cannot be sent through Care Everywhere.Toe Fracture Discharge Instructions (Sami)documented in this encounter [facility] 05-14-2023 Emergency department Note Jennifer tape and post op shoe applied Amy Guadalupe RN 05/14/23 [id number] [facility] 05-14-2023 Emergency department Note EMERGENCY DEPARTMENT ENCOUNTER Pt Name: Gonzalo Lei Birthdate 1935 Date of evaluation: 05/14/2023 ED Provider: Shawn Duvall MD CHIEF COMPLAINT Chief Complaint Patient presents with Toe Injury History from patient and brother HISTORY OF PRESENT ILLNESS (Location/Symptom, Timing/Onset, Context/Setting, Quality, Duration, Modifying Factors, Severity) Note limiting factors. I wore appropriate PPE for the entirety of this encounter. HPI Gonzalo Lei is a 87 y.o. who presents to the emergency department complaining of right fifth toe pain. States that 2 days ago she walked into an object when she got up to go to the bathroom. She has had pain in her fifth toe ever since. It is associated with swelling. was not trying to hurt herself. No one was trying to hurt her. No previous injury. No other injury. She was hoping it would get better on her own but her family convinced her she needed an x-ray. She called her foot doctor who could not see her until August so she was directed to the emergency department. No other complaint. Nursing Notes were reviewed. Limitations to history: None Outside historians: Family brother REVIEW OF SYSTEMS Review of Systems Constitutional: Negative for fever. Eyes: Negative for visual disturbance. Respiratory: Negative for shortness of breath. Cardiovascular: Negative for chest pain. Gastrointestinal: Negative for abdominal pain. Genitourinary: Negative for difficulty urinating. Musculoskeletal: Positive for arthralgias, gait problem and joint swelling. Negative for back pain, myalgias, neck pain and neck stiffness. Skin: Negative for rash. Neurological: Negative for headaches. Psychiatric/Behavioral: Negative for self-injury. Pertinent positives and negatives as per HPI PAST MEDICAL HISTORY Past Medical History: Diagnosis Date Anemia Arthritis Cancer (CMS/HCC) (HCC) Skin arm and leg GERD (gastroesophageal reflux disease) Gout Hypertension Psoriasis SOB (shortness of breath) Thyroid disease Vertigo SURGICAL HISTORY Past Surgical History: Procedure Laterality Date AORTIC VALVE REPLACEMENT 2018 BLADDER SUSPENSION 2010 w/mesh HERNIA REPAIR 4 times [place], 1979, 2007,2010, 2005 HIATAL HERNIA REPAIR 10/21/2016 lap hiatal hernia, lap [place], upper GI endoscopy, dr. beltran ach HYSTERECTOMY 1999 SKIN CANCER EXCISION SMALL INTESTINE SURGERY 1979 UPPER GASTROINTESTINAL ENDOSCOPY 07/28/2016 CURRENT MEDICATIONS Previous Medications FUROSEMIDE (LASIX) 20 MG TABLET Take 1 tablet (20 mg) by mouth daily. Do not start before September 13, 2022. IPRATROPIUM-ALBUTEROL (DUO-NEB) 0.5-2.5 MG/3 ML NEBULIZER SOLUTION Take 3 mL by nebulization 4 times daily as needed for shortness of breath. LEVOTHYROXINE (SYNTHROID, LEVOXYL) 125 MCG TABLET Take 125 mcg by mouth daily. LOSARTAN (COZAAR) 50 MG TABLET Take 25 mg by mouth daily. MELATONIN 5 MG TABLET Take 1 tablet (5 mg) by mouth Nightly as needed. PANTOPRAZOLE (PROTONIX) 40 MG EC TABLET Take 1 tablet (40 mg) by mouth daily (before lunch). Do not crush, chew, or split. Do not start before September 12, 2022. ALLERGIES Levofloxacin FAMILY HISTORY Family History Problem Relation Name Age of Onset Hypertension Mother Colon cancer Neg Hx Hypertension Father SOCIAL HISTORY Social History Socioeconomic History Marital status: Tobacco Use Smoking status: Never Smokeless tobacco: Never Substance and Sexual Activity Alcohol use: No Drug use: No Social Determinants of Health Financial Resource Strain: Medium Risk (09/09/2022) Overall Financial Resource Strain (CARDIA) Difficulty of Paying Living Expenses: Somewhat hard Food Insecurity: No Food Insecurity (09/09/2022) Hunger Vital Sign Worried About Running Out of Food in the Last Year: Never true Ran Out of Food in the Last Year: Never true Transportation Needs: Unmet Transportation Needs (09/09/2022) PRAPARE - Transportation Lack of Transportation (Medical): Yes Lack of Transportation (Non-Medical): Yes Physical Activity: Inactive (09/09/2022) Exercise Vital Sign Days of Exercise per Week: 0 days Minutes of Exercise per Session: 0 min Stress: Stress Concern Present (09/09/2022) [employer] - Occupational Stress Questionnaire Feeling of Stress : Rather much Social Connections: Moderately Integrated (09/09/2022) Social Connection and Isolation Panel [NHANES] Frequency of Communication with Friends and Family: Twice a week Frequency of Social Gatherings with Friends and Family: Once a week Attends Alevism Services: 1 to 4 times per year Active Member of Clubs or Organizations: No Attends Club or Organization Meetings: 1 to 4 times per year Marital Status: Intimate Partner Violence: Not At Risk (12/24/2022) Humiliation, Afraid, Rape, and Kick questionnaire Fear of Current or Ex-Partner: No Emotionally Abused: No Physically Abused: No Sexually Abused: No Housing Stability: High Risk (09/09/2022) Housing Stability Vital Sign Unable to Pay for Housing in the Last Year: No Number of Places Lived in the Last Year: 1 Unstable Housing in the Last Year: Yes SCREENINGS PHYSICAL EXAM ED Triage Vitals [05/14/23 1628] Temp Heart Rate Resp BP 37.1 C (98.7 F) 76 16 (!) 164/82 SpO2 Temp Source Heart Rate Source Patient Position 98 % Oral -- Standing BP Location FiO2 (%) Right arm -- Physical Exam Constitutional: Appearance: Normal appearance. HENT: Head: Normocephalic and atraumatic. Eyes: Extraocular Movements: Extraocular movements intact. Pupils: Pupils are equal, round, and reactive to light. Cardiovascular: Rate and Rhythm: Normal rate. Pulmonary: Effort: Pulmonary effort is normal. Musculoskeletal: General: Normal range of motion. Cervical back: Normal range of motion. Skin: General: Skin is warm and dry. Neurological: Mental Status: She is alert. Not febrile not toxic, has a walker Right leg -3+ pedal edema to her knees with venous stasis changes, tender over her fifth toe, full range of motion, neurovascular intact DIAGNOSTIC RESULTS RADIOLOGY (Per Emergency Physician): Right foot x-ray - possible fracture 5th toe Interpretation per the Radiologist below, if available at the time of this note: XR foot 3+ views right Final Result FINDINGS/IMPRESSION: Limitations: Patient positioning and suspected osseous demineralization limits evaluation. Presence of hammertoe deformities limits evaluation of these digits as well. On the AP view questionable subtle cortical irregularity involving the middle phalanx, lateral aspect, fifth digit which could reflect a nondisplaced fracture. Recommend correlation with point tenderness. No dislocation. Calcific densities project over several digits most notably the second digit. Linear metallic appearing foreign body measuring 1.3 cm located within the medial/plantar soft tissues along the proximal first digit. Scattered areas of osteoarthritis likely most pronounced at the first MTP joint and several of the IP joints. Extensive soft tissue swelling/edema along the dorsal soft tissues. Report Dictated on Electronically Signed By: Corey Dela Cruz MD Electronically Signed Date/Time: 05/14/2023 5:22 PM EDT EMERGENCY DEPARTMENT COURSE and DIFFERENTIAL DIAGNOSIS/MDM: Vitals: Vitals: 05/14/23 1628 BP: (!) 164/82 BP Location: Right arm Patient Position: Standing Pulse: 76 Resp: 16 Temp: 37.1 C (98.7 F) TempSrc: Oral SpO2: 98% Weight: 93.9 kg (207 lb) Medications - No data to display Medical Decision Making and ED Course The patient presented with a chief complaint of small toe pain. The differential diagnosis associated with this patient's presentation includes contusion fracture dislocations of injury or abuse. Our workup consisted of ordering/reviewing history physical examination and imaging. History and physical examination rule out abuse or self injury. Imaging shows a subtle lucency on her fifth toe which could be consistent with a fracture. Whether it is acutely fractured or contused the treatment is the same. Patient educated regarding toe fractures. She was educated on how to jennifer tape her toe and given supplies. she has pain medication. She is ambulatory. Patient agrees with symptomatic treatment and PCP follow-up as an outpatient. Independent test interpretation by me: Foot x-ray Chronic conditions impacting care: Has impaired ambulation having to use a walker and also has lymphedema and feet as stasis making healing difficult and ambulation difficult Social determinants of health affecting care: Elder Consideration of hospitalization or de-escalation of care: Does not meet criteria for hospitalization because she is able to ambulate with her walker REVAL: 5:33 PM All data now available and reviewed with patient. PROCEDURES Indication: Toe fracture Patient consented to the procedure. Webril was placed between the fourth and fifth digits and they were taped together. Neuro vastly intact before and after. Patient tolerated well. FINAL IMPRESSION 1. Closed nondisplaced fracture of phalanx of lesser toe of right foot, unspecified phalanx, initial encounter DISPOSITION Discharge 05/14/2023 05:43:41 PM PATIENT REFERRED TO: Divina Smart DO [address] [place] [id number] as previously scheduled DISCHARGE MEDICATIONS: New Prescriptions No medications on file (Comment: Please note this report has been produced using speech recognition software and may contain errors related to that system including errors in grammar, punctuation, and spelling, as well as words and phrases that may be inappropriate. If there are any questions or concerns please feel free to contact the dictating provider for clarification.) Shawn Duvall MD (electronically signed) Emergency Medicine Provider Shawn Duvall MD 05/14/23 1802 Pt ambulatory to room 11 with c/o pain at right 5th toe after kicking a chair on Wednesday. Pt has pain with weightbearing, ambulation and palpation. Pt has redness that is now extending across top of the foot. Jennifer tape and post op shoe applied Amy Guadalupe RN 05/14/23 1835 documented in this encounter [facility] 05-14-2023 Emergency department Triage note Pt ambulatory to room 11 with c/o pain at right 5th toe after kicking a chair on Wednesday. Pt has pain with weightbearing, ambulation and palpation. Pt has redness that is now extending across top of the foot. [facility] 05-14-2023 Physician Emergency department Note EMERGENCY DEPARTMENT ENCOUNTER Pt Name: Gonzalo Lei Birthdate 1935 Date of evaluation: 05/14/2023 ED Provider: Shawn Duvall MD CHIEF COMPLAINT Chief Complaint Patient presents with Toe Injury History from patient and brother HISTORY OF PRESENT ILLNESS (Location/Symptom, Timing/Onset, Context/Setting, Quality, Duration, Modifying Factors, Severity) Note limiting factors. I wore appropriate PPE for the entirety of this encounter. HPI Gonzalo Lei is a 87 y.o. who presents to the emergency department complaining of right fifth toe pain. States that 2 days ago she walked into an object when she got up to go to the bathroom. She has had pain in her fifth toe ever since. It is associated with swelling. was not trying to hurt herself. No one was trying to hurt her. No previous injury. No other injury. She was hoping it would get better on her own but her family convinced her she needed an x-ray. She called her foot doctor who could not see her until August so she was directed to the emergency department. No other complaint. Nursing Notes were reviewed. Limitations to history: None Outside historians: Family brother REVIEW OF SYSTEMS Review of Systems Constitutional: Negative for fever. Eyes: Negative for visual disturbance. Respiratory: Negative for shortness of breath. Cardiovascular: Negative for chest pain. Gastrointestinal: Negative for abdominal pain. Genitourinary: Negative for difficulty urinating. Musculoskeletal: Positive for arthralgias, gait problem and joint swelling. Negative for back pain, myalgias, neck pain and neck stiffness. Skin: Negative for rash. Neurological: Negative for headaches. Psychiatric/Behavioral: Negative for self-injury. Pertinent positives and negatives as per HPI PAST MEDICAL HISTORY Past Medical History: Diagnosis Date Anemia Arthritis Cancer (CMS/HCC) (HCC) Skin arm and leg GERD (gastroesophageal reflux disease) Gout Hypertension Psoriasis SOB (shortness of breath) Thyroid disease Vertigo SURGICAL HISTORY Past Surgical History: Procedure Laterality Date AORTIC VALVE REPLACEMENT 2018 BLADDER SUSPENSION 2010 w/mesh HERNIA REPAIR 4 times [place], 1979, 2007,2010, 2005 HIATAL HERNIA REPAIR 10/21/2016 lap hiatal hernia, lap Ronen, upper GI endoscopy, dr. beltran ach HYSTERECTOMY 1999 SKIN CANCER EXCISION SMALL INTESTINE SURGERY 1979 UPPER GASTROINTESTINAL ENDOSCOPY 07/28/2016 CURRENT MEDICATIONS Previous Medications FUROSEMIDE (LASIX) 20 MG TABLET Take 1 tablet (20 mg) by mouth daily. Do not start before September 13, 2022. IPRATROPIUM-ALBUTEROL (DUO-NEB) 0.5-2.5 MG/3 ML NEBULIZER SOLUTION Take 3 mL by nebulization 4 times daily as needed for shortness of breath. LEVOTHYROXINE (SYNTHROID, LEVOXYL) 125 MCG TABLET Take 125 mcg by mouth daily. LOSARTAN (COZAAR) 50 MG TABLET Take 25 mg by mouth daily. MELATONIN 5 MG TABLET Take 1 tablet (5 mg) by mouth Nightly as needed. PANTOPRAZOLE (PROTONIX) 40 MG EC TABLET Take 1 tablet (40 mg) by mouth daily (before lunch). Do not crush, chew, or split. Do not start before September 12, 2022. ALLERGIES Levofloxacin FAMILY HISTORY Family History Problem Relation Name Age of Onset Hypertension Mother Colon cancer Neg Hx Hypertension Father SOCIAL HISTORY Social History Socioeconomic History Marital status: Tobacco Use Smoking status: Never Smokeless tobacco: Never Substance and Sexual Activity Alcohol use: No Drug use: No Social Determinants of Health Financial Resource Strain: Medium Risk (09/09/2022) Overall Financial Resource Strain (CARDIA) Difficulty of Paying Living Expenses: Somewhat hard Food Insecurity: No Food Insecurity (09/09/2022) Hunger Vital Sign Worried About Running Out of Food in the Last Year: Never true Ran Out of Food in the Last Year: Never true Transportation Needs: Unmet Transportation Needs (09/09/2022) PRAPARE - Transportation Lack of Transportation (Medical): Yes Lack of Transportation (Non-Medical): Yes Physical Activity: Inactive (09/09/2022) Exercise Vital Sign Days of Exercise per Week: 0 days Minutes of Exercise per Session: 0 min Stress: Stress Concern Present (09/09/2022) [employer] - Occupational Stress Questionnaire Feeling of Stress : Rather much Social Connections: Moderately Integrated (09/09/2022) Social Connection and Isolation Panel [NHANES] Frequency of Communication with Friends and Family: Twice a week Frequency of Social Gatherings with Friends and Family: Once a week Attends Alevism Services: 1 to 4 times per year Active Member of Clubs or Organizations: No Attends Club or Organization Meetings: 1 to 4 times per year Marital Status: Intimate Partner Violence: Not At Risk (12/24/2022) Humiliation, Afraid, Rape, and Kick questionnaire Fear of Current or Ex-Partner: No Emotionally Abused: No Physically Abused: No Sexually Abused: No Housing Stability: High Risk (09/09/2022) Housing Stability Vital Sign Unable to Pay for Housing in the Last Year: No Number of Places Lived in the Last Year: 1 Unstable Housing in the Last Year: Yes SCREENINGS PHYSICAL EXAM ED Triage Vitals [05/14/23 1628] Temp Heart Rate Resp BP 37.1 C (98.7 F) 76 16 (!) 164/82 SpO2 Temp Source Heart Rate Source Patient Position 98 % Oral -- Standing BP Location FiO2 (%) Right arm -- Physical Exam Constitutional: Appearance: Normal appearance. HENT: Head: Normocephalic and atraumatic. Eyes: Extraocular Movements: Extraocular movements intact. Pupils: Pupils are equal, round, and reactive to light. Cardiovascular: Rate and Rhythm: Normal rate. Pulmonary: Effort: Pulmonary effort is normal. Musculoskeletal: General: Normal range of motion. Cervical back: Normal range of motion. Skin: General: Skin is warm and dry. Neurological: Mental Status: She is alert. Not febrile not toxic, has a walker Right leg -3+ pedal edema to her knees with venous stasis changes, tender over her fifth toe, full range of motion, neurovascular intact DIAGNOSTIC RESULTS RADIOLOGY (Per Emergency Physician): Right foot x-ray - possible fracture 5th toe Interpretation per the Radiologist below, if available at the time of this note: XR foot 3+ views right Final Result FINDINGS/IMPRESSION: Limitations: Patient positioning and suspected osseous demineralization limits evaluation. Presence of hammertoe deformities limits evaluation of these digits as well. On the AP view questionable subtle cortical irregularity involving the middle phalanx, lateral aspect, fifth digit which could reflect a nondisplaced fracture. Recommend correlation with point tenderness. No dislocation. Calcific densities project over several digits most notably the second digit. Linear metallic appearing foreign body measuring 1.3 cm located within the medial/plantar soft tissues along the proximal first digit. Scattered areas of osteoarthritis likely most pronounced at the first MTP joint and several of the IP joints. Extensive soft tissue swelling/edema along the dorsal soft tissues. Report Dictated on Electronically Signed By: Corey Dela Cruz MD Electronically Signed Date/Time: 05/14/2023 5:22 PM EDT EMERGENCY DEPARTMENT COURSE and DIFFERENTIAL DIAGNOSIS/MDM: Vitals: Vitals: 05/14/23 1628 BP: (!) 164/82 BP Location: Right arm Patient Position: Standing Pulse: 76 Resp: 16 Temp: 37.1 C (98.7 F) TempSrc: Oral SpO2: 98% Weight: 93.9 kg (207 lb) Medications - No data to display Medical Decision Making and ED Course The patient presented with a chief complaint of small toe pain. The differential diagnosis associated with this patient's presentation includes contusion fracture dislocations of injury or abuse. Our workup consisted of ordering/reviewing history physical examination and imaging. History and physical examination rule out abuse or self injury. Imaging shows a subtle lucency on her fifth toe which could be consistent with a fracture. Whether it is acutely fractured or contused the treatment is the same. Patient educated regarding toe fractures. She was educated on how to jennifer tape her toe and given supplies. she has pain medication. She is ambulatory. Patient agrees with symptomatic treatment and PCP follow-up as an outpatient. Independent test interpretation by me: Foot x-ray Chronic conditions impacting care: Has impaired ambulation having to use a walker and also has lymphedema and feet as stasis making healing difficult and ambulation difficult Social determinants of health affecting care: Elder Consideration of hospitalization or de-escalation of care: Does not meet criteria for hospitalization because she is able to ambulate with her walker REVAL: 5:33 PM All data now available and reviewed with patient. PROCEDURES Indication: Toe fracture Patient consented to the procedure. Webril was placed between the fourth and fifth digits and they were taped together. Neuro vastly intact before and after. Patient tolerated well. FINAL IMPRESSION 1. Closed nondisplaced fracture of phalanx of lesser toe of right foot, unspecified phalanx, initial encounter DISPOSITION Discharge 05/14/2023 05:43:41 PM PATIENT REFERRED TO: Divina Smart DO [address] [place] [address] [id number] as previously scheduled DISCHARGE MEDICATIONS: New Prescriptions No medications on file (Comment: Please note this report has been produced using speech recognition software and may contain errors related to that system including errors in grammar, punctuation, and spelling, as well as words and phrases that may be inappropriate. If there are any questions or concerns please feel free to contact the dictating provider for clarification.) Shawn Duvall MD (electronically signed) Emergency Medicine Provider Shawn Duvall MD 05/14/23 1802 [facility] 02-23-2023 Discharge summary Note Date/Time February 23, 2023 4:32pm [facility] Medical Records Department [address] [place] [address] Emergency Department Summary 02/23/23 MR#: [id number] Acct: [id number] Name: GONZALO LEI Rep #:[id number] : 1935 87 From: Aj Pastrana MD PCP: Dr. Divina Smart, DO Status:REG ER Location: ED HPI History of Present Illness Chief Complaint: Constipation Informant: patient Narrative Narrative: Patient presents with constipation and then rectal bleeding. Patient has a long history of constipation. She states she normally takes something to move her bowels and it works. She last moved her bowels normally 2days ago. She tried some milk of magnesia and MiraLAX. She has been straining multiple times since yesterday. Today when she strained she was about to have abowel movement and she got some blood out. She did not have a significant bowelmovement with this. She is not lightheaded or dizzy. She has not had continuedbleeding. She denies being on blood thinners including no baby aspirin or aspirin. No history of GI bleed. She did have a partial small bowel resection related to what sounds like incarcerated hernia years ago. She states she has not had any abdominal pain at any time. She still eating and drinking fine. Medication changes including decreasing her levothyroxine from 125 to 112-1/2 mcg a couple weeks ago. Her Lasix was also doubled from 20 to 40 mg a day 12 days ago. This was done because of swelling in her legs which is now gone. Shestates she has been urinating more but it does not burn or have an odor. [facility] Medical History Acute respiratory failure with hypoxemia Anemia Arthritis Blackout Body mass index (BMI) 35 or more Cancer Cardiology follow-up encounter COPD (chronic obstructive pulmonary disease) Demand ischemia Essential hypertension Femoral hernia of right side Gastric reflux GERD (gastroesophageal reflux disease) Gout Hiatal hernia with gastroesophageal reflux History of eye disorder History of GI bleed Hoarseness Hypothyroidism Non-ischemic cardiomyopathy Non-smoker Nonrheumatic aortic (valve) stenosis with insufficiency Nonrheumatic mitral (valve) insufficiency Obesity Psoriasis Pulmonary edema Restless legs Seroma after procedure Severe sepsis Shortness of breath on exertion Skin cancer Thyroid disease Vertigo Wears dentures Wears glasses Home Medications albuterol sulfate 2.5 mg/3 mL (0.083 %) solution for nebulization 2.5 mg inhalation Q6H PRN PRN Sob &/Or Wheezing 02/07/18 [History Last Taken 09/09/21] levothyroxine 125 mcg tablet 125 mcg PO DAILY thyroid 05/05/18 [History Last Taken 09/11/21] omeprazole 40 mg capsule,delayed release 40 mg PO DAILY 05/01/21 [History Last Taken 09/10/21] multivitamin 1 tab PO DAILY supplement 09/11/21 [History Last Taken 09/10/21] ondansetron 4 mg disintegrating tablet 4 mg PO Q8H PRN nausea and vomiting #10 tabs 09/11/21 [Rx Last Taken Unknown] Lactobacillus acidophilus (Acidophilus capsule) 100 mg PO DAILY 01/28/23 [History Last Taken Unknown] losartan 25 mg tablet 25 mg PO DAILY 01/28/23 [History Last Taken Unknown] melatonin 5 mg tablet 5 mg PO QHS 01/28/23 [History Last Taken Unknown] nystatin 100,000 unit/mL oral suspension 5 ml PO Q6H 01/28/23 [History Last Taken Unknown] furosemide 40 mg tablet 40 mg PO DAILY dose increased by Dr. Rupert Lind 02/11/23[History Last Taken Unknown] Allergy/AdvReac Type Severity Reaction Status Date / Time No Known Allergies Allergy Verified 01/28/23 11:00 Family History Mother Hypertension Diabetes Father Hypertension Heart disease CVA (cerebral vascular accident) Cancer Brother Cancer Diabetes Heart disease CVA (cerebral vascular accident) Brother CVA (cerebral vascular accident) Surgical History History of aortic valve replacement with bioprosthetic valve (06/15/17) History of bladder suspension procedure History of esophagogastroduodenoscopy (EGD) History of hysterectomy History of incisional hernia repair History of left heart catheterization (2011) History of Ronen fundoplication (10/21/16) History of partial colectomy History of repair of hiatal hernia (10/21/16) Hx of colonoscopy Social History household members: none housing: apartment Smoking Status: Never smoker second hand exposure: No alcohol intake: never substance use type: does not use caffeine: Yes Type: coffee Number of servings: 1 what type of physical activity do you participate in: none frequency: does not exercise ROS ROS ED ROS Narrative A complete review of systems was performed and is negative except as documented in the history of present illness. Some specific details below. Constitutional: No recent fevers or chills. EYE: No visual complaints or pain. ENT: No difficulty swallowing. No swelling. No pain. CV: No chest pain or palpitations. Respiratory: No dyspnea. No hemoptysis. No difficulty taking breaths. GI: Please see history of present illness. Patient states that she has had rectal bleeding before when she has passed hard stools or was badly constipated. But this seems to be more blood than typical. : No frequency dysuria or hematuria. Musculoskeletal: No recent trauma. No pains. Skin: No rash. Nondiaphoretic. Neuro: No weakness or numbness. Endocrine: No polyuria or polydipsia. EXAM Physical Exam Narrative Exam Narrative: CONSTITUTIONAL: Patient is nontoxic in appearance. The patient looks comfortable. HEENT: No notable trauma. Mucous membranes moist. No sinus tenderness. No indication of pain with swallowing. EYES: No conjunctival injection. No pallor. CARDIOVASCULAR: Regular rate. Regular rhythm. Pulses are good. RESPIRATORY: No respiratory distress. Breathing is unlabored. No wheezes. No rhonchi. No rales. No pain with a deep breath. GASTROINTESTINAL: Not distended. Bowel sounds are normal. No tenderness. No guarding. No rebound. No palpable mass. No bruit. External abdominal exam is quite benign. Rectal: There is a little bit of blood on a pad. There is some irritation around the rectum. There may be a small fissure. I do not see any hemorrhoids. Digital exam shows some discomfort. But I do not feel any internal hemorrhoids. There is a small amount of stool toward my fingertip but nothing at the lower rectum of significance. Stool seems to be medium brown. It is notblack. GENITOURINARY: No tenderness over the bladder. No CVA tenderness. MUSCULOSKELETAL: Atraumatic. No peripheral edema. No cord. No tenderness along the deep venous system. No asymmetry. NEUROLOGICAL: Patient is alert and appropriate. No focal deficit noted. SKIN: No noted rashes. No diaphoresis. PSYCHIATRIC: Patient is calm. Mood is appropriate. Const Vital Signs: 02/23/23 16:16 Temperature 97.4 F L Temperature Source Temporal Pulse Rate 79 Respiratory Rate 16 Blood Pressure 163/106 H Blood Pressure Mean 125 Pulse Ox 94 Oxygen Delivery Method Room Air MDM MDM MDM Narrative Medical decision making narrative: Patient CBC is normal including normal hemoglobin hematocrit and platelets. Electrolytes show minimal bump in BUN and creatinine but she was given IV fluids. Glucose is just up slightly 142. Liver function test are normal. My independent interpretation of her 5 view abdominal film shows changes at the right base of the lungs but when I compare this to films from December 20, 2022 it looks similar. Final read eating is standing she may need to see in this area. But I went back and talk to her. She has absolutely no abdominal pain and no tenderness. It is a totally benign abdomen. I do not think this requires CT scanning for that finding acutely. We did do an a soapsuds enema. She had a small bowel movement and then a bit later had a medium sized bowel movement. She evidently is called her brother wily home. She did have a little bit of red blood on this but she is not activelybleeding. She does have a little bit of a fissure. I think since she is on no blood thinners, not lightheaded, not anemic, not thrombocytopenic she does not need to come in the hospital. She states she has had rectal bleeding with straining in the past. We did discuss that if this increases or she gets at alllightheaded or is having clots she should return. It is possible this could happen but hopefully this will resolve. She has MiraLAX at home. I recommend she take this twice a day and then as long as she is moving her bowels well turnher down to once a day and then every other day to slowly wean off. Lab Data Attestation: I reviewed the patient's lab results. Labs: Laboratory Results - last 24 hr 02/23/23 16:30 WBC 10.2 RBC 4.73 Hgb 13.8 Hct 43.3 MCV 91.5 MCH 29.2 MCHC 31.9 L RDW Std Deviation 49.4 H RDW Coeff of Fabricio 14.8 H Plt Count 203 MPV 12.3 H Immature Gran % (Auto) 0.600 Neut % (Auto) 70.2 H Lymph % (Auto) 20.3 [place] % (Auto) 8.1 Eos % (Auto) 0.3 Baso % (Auto) 0.5 Absolute Neuts (auto) 7.2 Absolute Lymphs (auto) 2.08 Nucleated RBC % 0 Sodium 136 Potassium 4.1 Chloride 100 Carbon Dioxide 30.0 Anion Gap 6 BUN 27 H Creatinine 1.29 H Estim Creat Clear Calc 34.83 Est GFR (MDRD) Af Amer 50 L Est GFR (MDRD) Non-Af 42 L BUN/Creatinine Ratio 20.9 H Glucose 142 H Calcium 9.3 Total Bilirubin 0.50 AST 21 ALT 22 Alkaline Phosphatase 73 Total Protein 7.2 Albumin 3.7 Globulin 3.5 Albumin/Globulin Ratio 1.1 Radiography Diagnostic Testing: Clinical Impression(s) from Imaging Studies Acute Abdomen Series 02/23/23 16:47 IMPRESSION: Bilateral basilar atelectasis otherwise no acute cardiopulmonary disease. Air-fluid level at the right hemidiaphragm and within the midepigastric region with unusual morphology at the level of the right upper abdomen, recommend follow-up with CT of the abdomen and pelvis to exclude air collection or atypical pneumoperitoneum . Electronically Signed: Pita Hale MD at 17:16 EST Reading Location ID and State: [address] [place] [address] , Service support , Discharge Plan Triage Chief Complaint: Constipation ED Provider: Aj Pastrana Dx/Rx/DC Orders Clinical Impression: Dehydration, mild, Blood in stool, Constipation Instructions: ED Constipation (Adult) Prescriptions: No Action levothyroxine 125 mcg tablet 125 mcg PO DAILY omeprazole 40 mg capsule,delayed release(DR/EC) 40 mg PO DAILY Patient Comments: take 1 capsule by mouth once daily nystatin 100,000 unit/mL suspension 5 ml PO Q6H Patient Comments: take 5 milliliters by mouth four times a day losartan 25 mg tablet 25 mg PO DAILY Patient Comments: take 1 tablet by mouth every morning Acidophilus Capsule 100 mg PO DAILY Patient Comments: take 1 capsule by mouth every morning melatonin 5 mg tablet 5 mg PO QHS Patient Comments: take 1 tablet by mouth at bedtime albuterol sulfate 2.5 MG/3 ML solution for nebulization 2.5 mg inhalation Q6H PRN PRN (Reason: Sob &/Or Wheezing) multivitamin Tablet 1 tab PO DAILY ondansetron 4 mg tablet,disintegrating 4 mg PO Q8H PRN (Reason: nausea and vomiting) Qty: 10 0RF furosemide 40 mg tablet 40 mg PO DAILY Primary Care Provider: Divina Smart Referrals: Divina Smart DO [Primary Care Provider] - 3-5 Days Disposition Disposition: Home, Self Care Capacity Legal [employer] Reflex Medical hold order details:: IF a medical hold is selected below, a suggested order for a MEDICAL HOLD will reflex upon signing the document. Next of kin: [place] law dictates a PRIORITY LIST for identifying legal decision-maker/legal next of kin in the following order (LNOK): 1st: The patient?s legal guardian, if any 2nd: The patient's spouse (if status is questionable, consult Risk Management) 3rd: The patient?s adult child(herberth) (majority, if multiple children) 4th: The patient?s parents 5th: The patient?s adult siblings (majority, if multiple children siblings) What to do if you have Problems For any increased pain, shortness of breath, bleeding, nausea or vomiting, chestpain, or any unexpected problems, contact your Primary Care Provider. Call [facility] ([phone]) or report to the closest Emergency Room. Call 911 if necessary. 02/23/231844 <Electronically signed by Aj Pastrana MD> Cosigner Signature (if applicable): CC: Dr. Divina Smart DO ~ Signed [facility] Work Phone: [phone] 710-753801-03-2024 Note* Exam Date Time Procedure Performing Provider Status 02/10/23 3:35 PM VL Venous US/Doppler Both Legs (DVT) AO Auth (Verified) [facility] 11-19-2023 Hospital course Narrative* Attila Joya MD - 12/27/2022 2:26 PM EST Images from the original note were not included. 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 female who presents to the emergency department with lightheadedness. The patient reports that she was sitting on her couch today when suddenly she felt verylightheaded and felt she was going to lose consciousness. She attempted to stand and had a near syncopal episode. She reports that throughout the rest of the day she felt very lightheaded which prompted her to call 911. she states she called her neighbor who checked her BP and it was very elevated - she does not recall the actual reading. She admits to some bilateral lower extremity swelling and shortness of breath on exertion. She denies any chest pain or abdominal pain. She is currently day 2of antibiotics for treatment of a simple UTI. She denies flank pain, fevers, or chills. She is feeling a little better this AM - feels drugged up after the pain medication she got for her leg pain. No cp or sob. Dizziness is improved at this time. She had a CT head that was negative for acute process - her dizziness improved - urine culture was positive for e coli and she was placed on keflex. She was give 2 doses of IV lasix for mild volume overload and was feeling improved and was ok to dc to snf at this time for more PT Consults: IP CONSULT TO HEART FAILURE NURSE/COORDINATOR Discharge Instructions: Diet: Dietary Orders (From admission, onward) Start Ordered 12/24/22314 Adult diet Regular; Low Sodium (2 gm) Diet effective now Question Answer Comment Diet type Regular Sodium restriction: Low Sodium (2 gm) 11/16/23 0316 Activity: as tolerated Recommended Outpatient Tests: Disposition: Patient discharged in stable condition to snf . Greater than 31 minutes spent discharging the patient and coming up with patient discharge plan. Vitals: BP 104/78 (BP Location: Left arm) Pulse 81 Temp 36.5 C (97.7 F) (Temporal) Resp 20 Ht 5' 1 (1.549 m) Wt 208 lb (94.3 kg) SpO2 94% BMI 39.30 kg/m Pulse Ox: SpO2 Av.5 % Min: 93 % Max: 96 % Supplemental O2: Physical Exam HENT: Mouth/Throat: Mouth: Mucous membranes are moist. Cardiovascular: Rate and Rhythm: Normal rate and regular rhythm. Pulses: Normal pulses. Heart sounds: Normal heart sounds. Pulmonary: Effort: Pulmonary effort is normal. Breath sounds: Normal breath sounds. Abdominal: General: Abdomen is flat. Bowel sounds are normal. Palpations: Abdomen is soft. Neurological: General: No focal deficit present. Mental Status: She is alert and oriented to person, place, and time. LABS: Recent Labs 12/25/22 0313 12/26/22 0218 12/27/22 0339 NA 136 135 133* K 4.3 4.6 4.6 CL 100 99 98 CO2 29 30 29 BUN 33* 36* 36* CREATININE 1.41* 1.30* 1.28* GLUCOSE 135* 142* 124* CALCIUM 9.3 8.9 8.9 No results for input(s): WBC, RBC, HGB, HCT, MCV, MCH, MCHC, RDW, PLT, MPV in the last 72 hours. Discharge Medications: Medication List START taking these medications cephalexin 250 MG capsule Commonly known as: Keflex Take 1 capsule (250 mg) by mouth in the morning and 1 capsule (250 mg) at noon and 1 capsule (250 mg) in the evening and 1 capsule (250 mg) before bedtime. Do all this for 3 days. CONTINUE taking these medications furosemide 20 MG tablet Commonly known as: Lasix ipratropium-albuterol 0.5-2.5 mg/3 mL nebulizer solution Commonly known as: Duo-Neb Take 3 mL by nebulization 4 times daily as needed for shortness of breath. levothyroxine 125 MCG tablet Commonly known as: Synthroid, Levoxyl losartan 50 MG tablet Commonly known as: Cozaar melatonin 5 MG tablet pantoprazole 40 MG EC tablet Commonly known as: ProtoNix Take 1 tablet (40 mg) by mouth daily (before lunch). Do not crush, chew, or split. Do not start before September 12, 2022. Where to Get Your Medications Information about where to get these medications is not yet available Ask your nurse or doctor about these medications cephalexin 250 MG capsule Recommended Follow-up: Divina Smart DO [address] [place] [address] [facility] [address] Schedule an appointment as soon as possible for a visit in 1 week(s) Complexity of Follow up: [] Moderate Complexity: follow up within 7-14 calendar days (17258) [x] Severe Complexity: follow up within 7 calendar days (55837) Follow up Testing, Pending results or Referrals at Transitional Care Visit: [x] yes [] no Instructions to MA: Please call patient on day after discharge (must document patient contacted within 2 business days of discharge). Follow up questions for MA: 1. Did you get medications filled and taking them as instructed from discharge? 2. Are you following your discharge instructions from your hospital stay? 3. Please confirm patient is scheduled for a follow up appointment within the above time frame. Signed: Attila Joya MD Division of Hospitalist Medicine Inpatient Medical Services/[facility] 12/27/2022, 2:26 PM documented in this [facility]11-19-2023 Nurse Note* Kinza Cedillo RN - 12/27/2022 2:14 PM EST Report called to Cong whalen [facility]. [id number]* Kinza Cedillo RN - 12/27/2022 2:14 PM EST Report called to Cong whalen [facility]. * Annika Echeverria RN - 12/24/2022 9:02 PM EST patients BP 108/76 HR 70 Cr 1.28. lasix held per dr. Bravo. documented in this [facility]11-19-2023 Miscellaneous Notes* Care Coordination - Unknown Case Management - 12/27/2022 12:53 PM EST Patient Choice Patient Name: GONZALO LEI Date of : 1935 All Providers Sent Referral Name: [facility] Phone: [phone] Address: [address] [place], [place] [address] * Care Coordination - Macy Louise RN - 12/27/2022 7:51 AM EST Images from the original note were not included. CARE COORDINATION DAILY NOTE/UPDATE Medical Plan: admitted with dizziness and UTI. PT rec SNF. Active dc order. Discharge Plan: [facility]- SNF-referral placed 12/25-no AUTH needed Discharge Barriers: none Chart and Careport reviewed. Message sent to Kinza ERICKSON asking her to update patient on plan. Ambulance transport scheduled for 1500. Discharge documents including Discharge Summary, After Visit Summary, MAR, LABS, and Vitals were uploaded into careport for facility review. Expected discharge, Discharge Milestones, and Rapid Rounding reviewed and updated. TCC will continue to follow. Discharge Milestones and Delays Expected Date/Time: 12/27/2022 Midday Disposition: Half-Way Facility Transport status: No current request Discharge Milestones Completed Place discharge order Complete med reconciliation Case mgmt discharge readiness Clinical Stability Diagnsotic Workup Expected Discharge History Expected Date/Time Set By Reviewed At 12/27/2022 Midday Macy Louise RN 12/27/2022 12:54 PM 12/27/2022 Midday Attila Joya MD 12/27/2022 11:02 AM 12/25/2022 Midday Attila Joya MD 12/25/2022 11:53 AM 12/26/2022 Kristal Patel RN 12/25/2022 8:11 AM 12/25/2022 Marek Castano, DO 12/24/2022 2:37 AM 12/25/2022 Marek Castano, DO 12/23/2022 8:49 PM Length of Stay (Days): 4 GMLOS: 3.9 * Care Plan - Iveth Silveira RN - 12/27/2022 6:42 AM EST Problem: Urinary Incontinence Goal: Perineal skin integrity is maintained or improved Outcome: Progressing Problem: Potential for Compromised Skin Integrity Goal: Skin Integrity is Maintained or Improved Outcome: Progressing Problem: Potential for Compromised Skin Integrity Goal: Nutritional status is improving Outcome: Progressing * Care Coordination - Trinidad Clarke - 12/25/2022 2:18 PM EST 7000 completed in [facility] * Care Coordination - Trinidad Clarke - 12/25/2022 10:40 AM EST Referral placed to SNF - [facility] per TCC request. Await review and response regarding ability to accept. TCC notified. * Care Coordination - Kristal Patel RN - 12/25/2022 10:19 AM EST On PO lasix now. Pt is interested in SNF. Would like to go to [facility]. Referral made. No pre cert needed is Medicare. . * Care Coordination - Kristal Patel RN - 12/24/2022 12:17 PM EST Care Managment Initial Assessment Date: 12/24/2022 Patient Name: Gonzalo Lei : 1935 Patient Information Source of Information: Patient Cognition/Language: WFL - Within Functional Limits Permission given to speak with patient sales representative/caregiver as indicated: Yes Confirmation of Payer with patient/family: Yes Payer Name: Medicare A and B : No Confirmation of Primary Care Physician: Confirmed PCP Name: Dr Smart Seen in last 2 years?: Yes Primary Caregiver: Self If assistance needed, confirmed caregiver ready, willing and able to care for patient at discharge: Confirmed with: Living Arrangements Current Residence: Apartment Number of Floors 1 Number of Entry Steps: Bed/Bath Levels: Both first floor Facility: Facility Name: Plan to Return: Lives with: Alone Support Systems: Children, Family members, Friends/neighbors Activities of Daily Living Ambulation: Assistance Bathing/Dressing: Independent Elimination/Continence/Toileting: Independent Feeding: Independent Who Assists with Activities of Daily Living: Instrumental Activities of Daily Living Prescription Coverage: Yes Pharmacy Used: [facility] Medication Management: Independent Transportation/Shopping: Assistance Provider Transportation/Shopping Assistance Provider Name: family Transportation Mode: Car Needs Assistance with Transportation at Discharge: No Meal Preparation: Independent Laundry/Cleaning: Assistance Provider Laundry/Cleaning Assistance Provider Name: family Finances/Bill Paying: Independent Communication: Independent Types of Care Services/Equipment Utilized Care Services: (n/a) Dialysis Type: NA Durable Medical Equipment: Cane, Walker, Nebulizer Patient's Goal/Discharge Plan Patient expects to be discharged to: Home Discharge Planning Actions: Continue to follow Patient's Choice Rights and [employer] and Collaborative Relationships Disclosed as Indicated for Post-Acute Care: Interdisciplinary Team Engagement: Social Work Referral for: Additional Information: Went into room introduced self and role to pt. She appears A 0 x 3. She came to ER with c/o dizziness and near syncopal episode. Was being treated at home for UTI on PO antibiotics. Started on IV lasix. Needs PT/OT to eval. Wants to go home when stable, will follow for needs. .Electronically signedby Kristal Mitchell RN on 12/24/2022 at 12:22 PM Kristal Patel RN documented in this [facility]11-19-2023 Note* Care Coordination - Unknown Case Management - 12/27/2022 12:53 PM EST Patient Choice Patient Name: GONZALO LEI Date of : 1935 All Providers Sent Referral Name: [facility] Phone: [phone] Address: [address] [place] [address] [id number]* Care Coordination - Unknown Case Management - 12/27/2022 12:53 PM EST Patient Choice Patient Name: GONZALO LEI Date of : 1935 All Providers Sent Referral Name: [facility] Phone: [phone] Address: [address] [place] [address] [id number] Note* Care Coordination - Macy Louise RN - 12/27/2022 7:51 AM EST Images from the original note were not included. CARE COORDINATION DAILY NOTE/UPDATE Medical Plan: admitted with dizziness and UTI. PT rec SNF. Active dc order. Discharge Plan: [facility]- SNF-referral placed 12/25-no AUTH needed Discharge Barriers: none Chart and Careport reviewed. Message sent to Kinza ERICKSON asking her to update patient on plan. Ambulance transport scheduled for 1500. Discharge documents including Discharge Summary, After Visit Summary, MAR, LABS, and Vitals were uploaded into careport for facility review. Expected discharge, Discharge Milestones, and Rapid Rounding reviewed and updated. TCC will continue to follow. Discharge Milestones and Delays Expected Date/Time: 12/27/2022 Midday Disposition: Half-Way Facility Transport status: No current request Discharge Milestones Completed Place discharge order Complete med reconciliation Case mgmt discharge readiness Clinical Stability Diagnsotic Workup Expected Discharge History Expected Date/Time Set By Reviewed At 12/27/2022 Midday Macy Louise RN 12/27/2022 12:54 PM 12/27/2022 Midday Attila Joya MD 12/27/2022 11:02 AM 12/25/2022 Midday Attila Joya MD 12/25/2022 11:53 AM 12/26/2022 Kristal Patel RN 12/25/2022 8:11 AM 12/25/2022 Marek Castano DO 12/24/2022 2:37 AM 12/25/2022 Marek Castano, DO 12/23/2022 8:49 PM Length of Stay (Days): 4 GMLOS: 3.9 [id number]* Care Coordination - Macy Louise RN - 12/27/2022 7:51 AM EST Images from the original note were not included. CARE COORDINATION DAILY NOTE/UPDATE Medical Plan: admitted with dizziness and UTI. PT rec SNF. Active dc order. Discharge Plan: [facility]- SNF-referral placed 12/25-no AUTH needed Discharge Barriers: none Chart and Careport reviewed. Message sent to Kinza ERICKSON asking her to update patient on plan. Ambulance transport scheduled for 1500. Discharge documents including Discharge Summary, After Visit Summary, MAR, LABS, and Vitals were uploaded into careport for facility review. Expected discharge, Discharge Milestones, and Rapid Rounding reviewed and updated. TCC will continue to follow. Discharge Milestones and Delays Expected Date/Time: 12/27/2022 Midday Disposition: Half-Way Facility Transport status: No current request Discharge Milestones Completed Place discharge order Complete med reconciliation Case mgmt discharge readiness Clinical Stability Diagnsotic Workup Expected Discharge History Expected Date/Time Set By Reviewed At 12/27/2022 Midday Macy Louise RN 12/27/2022 12:54 PM 12/27/2022 Midday Attila Joya MD 12/27/2022 11:02 AM 12/25/2022 Midday Attila Joya MD 12/25/2022 11:53 AM 12/26/2022 Kristal Patel RN 12/25/2022 8:11 AM 12/25/2022 Marek Castano, 12/24/2022 2:37 AM 12/25/2022 Marek Castano, DO 12/23/2022 8:49 PM Length of Stay (Days): 4 GMLOS: 3.9 [id number] Plan of care note* Care Plan - Iveth Silveira RN - 12/27/2022 6:42 AM EST Problem: Urinary Incontinence Goal: Perineal skin integrity is maintained or improved Outcome: Progressing Problem: Potential for Compromised Skin Integrity Goal: Skin Integrity is Maintained or Improved Outcome: Progressing Problem: Potential for Compromised Skin Integrity Goal: Nutritional status is improving Outcome: Progressing [facility]11-18-2023 History of Present illness Narrative* Attila Joya MD - 12/26/2022 10:08 AM EST Images from the original note were not included. Hospitalist Progress Note 12/26/2022 Subjective: Admit Date: 12/23/2022 PCP: DIVINA SMART DO Room#: W5-540/W5540 A Brief Hospital course: Gonzalo Lei is a 87 y.o. female who presents to the emergency department with lightheadedness. The patient reports that she was sitting on her couch today when suddenly she felt very lightheaded and felt she was going to lose consciousness. She attempted to stand and had a near syncopal episode. She reports that throughout the rest of the day she felt very lightheaded which prompted her to call 911. she states she called her neighbor who checked her BP and it was very elevated - she does not recall the actual reading. She admits to some bilateral lower extremity swelling and shortness of breath on exertion. She denies any chest pain or abdominal pain. She is currently day 2 of antibiotics for treatment of a simple UTI. She denies flank pain, fevers, or chills. She is feeling a little better this AM - feels drugged up after the pain medication she got for her leg pain. No cp or sob. Dizziness is improved at this time. Interval History: 12/25 - having some suprapubic pain / ? Urinary retention this AM - states her dizziness is improved - states she would be willing to go to snf at this time 12/26 - reports she is voiding better today - feels as though she may have a sinus infection No overnight issues. Case and plan discussed with patient and bedside nurse. All questions answered. Adult diet Regular; Low Sodium (2 gm) 24HR INTAKE/OUTPUT: Intake/Output Summary (Last 24 hours) at 12/26/2022 1008 Last data filed at 12/26/2022 0900 Gross per 24 hour Intake 740 ml Output 200 ml Net 540 ml Past Medical History: Past Medical History: Diagnosis Date Anemia Arthritis Cancer (CMS/HCC) (HCC) Skin arm and leg GERD (gastroesophageal reflux disease) Gout Hypertension Psoriasis SOB (shortness of breath) Thyroid disease Vertigo LABS: CBC: Recent Labs 12/23/221938 WBC 8.1 RBC 4.69 HGB 14.1 HCT 43.1 MCV 91.9 RDW 14.1 PLT 158 BMP: Recent Labs 12/24/22 0330 12/25/22 0313 12/26/22 0218 NA 137 136 135 K 4.5 4.3 4.6 CL 100 100 99 CO2 28 29 30 BUN 26* 33* 36* CREATININE 1.28* 1.41* 1.30* GLUCOSE 124* 135* 142* CALCIUM 9.7 9.3 8.9 ANIONGAP 9 7 6 LIVER PROFILE: Recent Labs 12/23/221938 AST 25 ALT 22 BILITOT 0.4 ALKPHOS 67 PROT 7.2 PT/INR: No results for input(s): PROTIME, INR in the last 72 hours. CARDIAC ENZYMES: Recent Labs 12/23/221938 TROPONINI 0.044* Procalcitonin: No results found for: PROCAL COVID-19 PCR: No results for input(s): COVID19 in the last 72 hours. Objective: Vitals: BP (!) 140/84 Pulse 78 Temp 36.3 C (97.3 F) (Temporal) Resp 16 Ht 5' 1 (1.549 m) Wt 217 lb 9.6 oz (98.7 kg) SpO2 98% BMI 41.12 kg/m Pulse Ox: SpO2 Av.3 % Min: 92 % Max: 99 % Supplemental O2: Physical Exam HENT: Mouth/Throat: Mouth: Mucous membranes are moist. Cardiovascular: Rate and Rhythm: Normal rate and regular rhythm. Pulmonary: Effort: Pulmonary effort is normal. Breath sounds: Normal breath sounds. Abdominal: General: Abdomen is flat. Bowel sounds are normal. Palpations: Abdomen is soft. Skin: General: Skin is warm. Neurological: General: No focal deficit present. Mental Status: She is alert and oriented to person, place, and time. Psychiatric: Mood and Affect: Mood normal. Medications: Current Facility-Administered Medications: acetaminophen (Tylenol) tablet 650 mg, 650 mg, Oral, q6h PRN OR acetaminophen (Tylenol) suppository 650 mg, 650 mg, Rectal, q6h PRN, Delon Bravo MD calcium carbonate (Tums) chewable tablet 500 mg, 500 mg, Oral, q4h PRN, Attila Joya MD, 500 mgat 12/25/22 0841 cephalexin (Keflex) capsule 250 mg, 250 mg, Oral, 4x daily, Attila Joya MD, 250 mg at enoxaparin (Lovenox) syringe 30 mg, 30 mg, SubCUTAneous, 2 times per day, Delon Bravo MD, 30 mg at102/25/22 0914 furosemide (Lasix) tablet 20 mg, 20 mg, Oral, Daily, Attila Joya MD, 20 mg at 12/26/22 0913 gabapentin (Neurontin) capsule 300 mg, 300 mg, Oral, TID PRN, Delon Bravo MD, 300 mg at 12/26/22 0213 ipratropium-albuterol (Duo-Neb) 0.5-2.5 mg/3 mL nebulizer solution 3 mL, 3 mL, Nebulization, 4x daily PRN, Delon Bravo MD levothyroxine (Synthroid, Levoxyl) tablet 125 mcg, 125 mcg, Oral, Daily, Delon Bravo MD, 125 mcg at 12/26/22 09 losartan (Cozaar) tablet 25 mg, 25 mg, Oral, Daily, Delon Bravo MD, 25 mg at 12/26/22 0914 melatonin tablet 5 mg, 5 mg, Oral, Nightly PRN, Delon Bravo MD, 5 mg at 12/25/222036 ondansetron ODT (Zofran-ODT) disintegrating tablet 4 mg, 4 mg, Oral, q8h PRN OR ondansetron (Zofran) injection 4 mg, 4 mg, IntraVENous, q6h PRN, Delon Bravo MD pantoprazole (ProtoNix) EC tablet 40 mg, 40 mg, Oral, Daily before lunch, Delon Bravo MD, 40 mg at102/24/22 1232 polyethylene glycol (PEG) 3350 (Miralax) packet 17 g, 17 g, Oral, Daily PRN, Delon Bravo MD potassium chloride CR (Klor-Con M10) ER tablet 40 mEq, 40 mEq, Oral, Daily PRN, Delon Bravo MD Assessment Data: (CAT1) Reviewed 3 or more labs/studies ordered by another provider not previously counted (each=1, panels count as 1). (LOW: 2x CAT1 or independent historian MOD: 3x CAT1 or 1x CAT3 EXTENSIVE: 3x CAT1 and 1x CAT3) Acute, acute on chronic, unstable/uncontrolled chronic problems/diagnoses: Dizziness UTI Stable chronic problems affecting care, new non-acute diagnoses: Chronic diastolic CHF Hypothyroidism HTN CKD stage 3 Plan As a result of the above findings & factors, the following mgmt was pursued: - UC with e coli - complete course of PO keflex - pt states she is voiding better today - dizziness resolved - CT head negative - change back to PO lasix at this time - monitor Cr - am labs, replace lytes prn - PT/OT/CM/SW - delirium precautions: increase activity - DVT prophylaxis: enoxaparin and encourage ambulation Complexity: Acute illness with systemic symptoms (MOD). Risk: Prescription drug/IVF/colloid was initiated, discontinued, adjusted; or reviewed with decision to maintain current orders (MOD). Advance Directive: DNR-CCA Anticipated Discharge - Date - 12/28 - Location - Skilled Facility - Pending the following - facility approval Total time spent (which include face to face and non face to face encounters) : 41 minutes Extended Emergency Contact Information Primary Emergency Contact: Florian Rivera Mobile Relation: None Secondary Emergency Contact: Mar Ramey Relation: None Attila Joya MD Division of Hospitalist Medicine Inpatient Medical Services/[facility] * Attila Joya MD - 12/25/2022 9:42 AM EST Images from the original note were not included. Hospitalist Progress Note 12/25/2022 Subjective: Admit Date: 12/23/2022 PCP: DIVINA SMART DO Room#: W5-337/W5-016 A Brief Hospital course: Gonzalo Lei is a 87 y.o. female who presents to the emergency department with lightheadedness. The patient reports that she was sitting on her couch today when suddenly she felt very lightheaded and felt she was going to lose consciousness. She attempted to stand and had a near syncopal episode. She reports that throughout the rest of the day she felt very lightheaded which prompted her to call 911. she states she called her neighbor who checked her BP and it was very elevated - she does not recall the actual reading. She admits to some bilateral lower extremity swelling and shortness of breath on exertion. She denies any chest pain or abdominal pain. She is currently day 2 of antibiotics for treatment of a simple UTI. She denies flank pain, fevers, or chills. She is feeling a little better this AM - feels drugged up after the pain medication she got for her leg pain. No cp or sob. Dizziness is improved at this time. Interval History: 12/25 - having some suprapubic pain / ? Urinary retention this AM - states her dizziness is improved - states she would be willing to go to snf at this time No overnight issues. Case and plan discussed with patient and bedside nurse. All questions answered. Adult diet Regular; Low Sodium (2 gm) 24HR INTAKE/OUTPUT: Intake/Output Summary (Last 24 hours) at 12/25/2022 0942 Last data filed at 12/24/2022 1700 Gross per 24 hour Intake 320 ml Output 400 ml Net -80 ml Past Medical History: Past Medical History: Diagnosis Date Anemia Arthritis Cancer (CMS/HCC) (HCC) Skin arm and leg GERD (gastroesophageal reflux disease) Gout Hypertension Psoriasis SOB (shortness of breath) Thyroid disease Vertigo LABS: CBC: Recent Labs 12/23/221938 WBC 8.1 RBC 4.69 HGB 14.1 HCT 43.1 MCV 91.9 RDW 14.1 PLT 158 BMP: Recent Labs 12/23/22193812/24/22 0330 12/25/22 0313 NA 135 137 136 K 4.5 4.5 4.3 CL 99 100 100 CO2 26 28 29 BUN 24* 26* 33* CREATININE 1.22* 1.28* 1.41* GLUCOSE 135* 124* 135* CALCIUM 8.9 9.7 9.3 ANIONGAP 10 9 7 LIVER PROFILE: Recent Labs 12/23/221938 AST 25 ALT 22 BILITOT 0.4 ALKPHOS 67 PROT 7.2 PT/INR: No results for input(s): PROTIME, INR in the last 72 hours. CARDIAC ENZYMES: Recent Labs 12/23/221938 TROPONINI 0.044* Procalcitonin: No results found for: PROCAL COVID-19 PCR: No results for input(s): COVID19 in the last 72 hours. Objective: Vitals: BP 108/67 (BP Location: Right arm, Patient Position: Lying) Pulse 73 Temp 36.4 C (97.5 F) (Temporal) Resp 16 Ht 5' 1 (1.549 m) Wt 164 lb 3.2 oz (74.5 kg) SpO2 96% BMI 31.03 kg/m Pulse Ox: SpO2 Av.7 % Min: 93 % Max: 98 % Supplemental O2: Physical Exam HENT: Mouth/Throat: Mouth: Mucous membranes are moist. Cardiovascular: Rate and Rhythm: Normal rate and regular rhythm. Pulmonary: Effort: Pulmonary effort is normal. Breath sounds: Normal breath sounds. Abdominal: General: Abdomen is flat. Bowel sounds are normal. Palpations: Abdomen is soft. Skin: General: Skin is warm. Neurological: General: No focal deficit present. Mental Status: She is alert and oriented to person, place, and time. Psychiatric: Mood and Affect: Mood normal. Medications: Current Facility-Administered Medications: acetaminophen (Tylenol) tablet 650 mg, 650 mg, Oral, q6h PRN OR acetaminophen (Tylenol) suppository 650 mg, 650 mg, Rectal, q6h PRN, Delon Bravo MD calcium carbonate (Tums) chewable tablet 500 mg, 500 mg, Oral, q4h PRN, Attila Joya MD, 500 mgat 12/25/22 0841 enoxaparin (Lovenox) syringe 30 mg, 30 mg, SubCUTAneous, 2 times per day, Delon Bravo MD, 30 mg at102/24/22 0850 furosemide (Lasix) injection 20 mg, 20 mg, IntraVENous, BID, Delon Bravo MD, 20 mg at 12/25/22 0841 gabapentin (Neurontin) capsule 300 mg, 300 mg, Oral, TID PRN, Delon Bravo MD Influenza Vac A&B SA Adj quadrivalent (Fluad) vaccine 0.5 mL, 0.5 mL, IntraMUSCular, Once, Delon Bravo MD ipratropium-albuterol (Duo-Neb) 0.5-2.5 mg/3 mL nebulizer solution 3 mL, 3 mL, Nebulization, 4x daily PRN, Delon Bravo MD levothyroxine (Synthroid, Levoxyl) tablet 125 mcg, 125 mcg, Oral, Daily, Delon Bravo MD, 125 mcg at 12/25/22 0841 losartan (Cozaar) tablet 25 mg, 25 mg, Oral, Daily, Delon Bravo MD, 25 mg at 12/24/22 1004 melatonin tablet 5 mg, 5 mg, Oral, Nightly PRN, Delon Bravo MD ondansetron ODT (Zofran-ODT) disintegrating tablet 4 mg, 4 mg, Oral, q8h PRN OR ondansetron (Zofran) injection 4 mg, 4 mg, IntraVENous, q6h PRN, Delon Bravo MD pantoprazole (ProtoNix) EC tablet 40 mg, 40 mg, Oral, Daily before lunch, Delon Bravo MD, 40 mg at102/23/22 1230 polyethylene glycol (PEG) 3350 (Miralax) packet 17 g, 17 g, Oral, Daily PRN, Delon Bravo MD potassium chloride CR (Klor-Con M10) ER tablet 40 mEq, 40 mEq, Oral, Daily PRN, Delon Bravo MD Assessment Data: (CAT1) Reviewed 3 or more labs/studies ordered by another provider not previously counted (each=1, panels count as 1). (LOW: 2x CAT1 or independent historian MOD: 3x CAT1 or 1x CAT3 EXTENSIVE: 3x CAT1 and 1x CAT3) Acute, acute on chronic, unstable/uncontrolled chronic problems/diagnoses: Dizziness UTI Stable chronic problems affecting care, new non-acute diagnoses: Chronic diastolic CHF Hypothyroidism HTN CKD stage 3 Plan As a result of the above findings & factors, the following mgmt was pursued: - UC with e coli - start PO keflex - check bladder scan given her suprapubic pain - dizziness resolved - CT head negative - change back to PO lasix at this time - monitor Cr - am labs, replace lytes prn - PT/OT/CM/SW - delirium precautions: increase activity - DVT prophylaxis: enoxaparin and encourage ambulation Complexity: Acute illness with systemic symptoms (MOD). Risk: Prescription drug/IVF/colloid was initiated, discontinued, adjusted; or reviewed with decision to maintain current orders (MOD). Advance Directive: DNR-CCA Anticipated Discharge - Date - 12/28 - Location - Skilled Facility - Pending the following - facility approval Total time spent (which include face to face and non face to face encounters) : 41 minutes Extended Emergency Contact Information Primary Emergency Contact: Florian Rivera Mobile Relation: None Secondary Emergency Contact: Mar Ramey Relation: None Attila Joya MD Division of Hospitalist Medicine Inpatient Medical Services/[facility] * Nannette Suresh - 12/25/2022 9:41 AM EST Nutrition rescreen completed. Chart reviewed. Patient to be monitored and followed by the diet nuclear fuel processing technician. Nannette Suresh DT * Chandler Alarcon, PT - 12/24/2022 1:55 PM EST Images from the original note were not included. PHYSICAL THERAPY [facility] Initial Evaluation Name/MRN: Gonzalo Lei ([id number]) Evaluation Date: 12/24/2022 Date of : 1935 Admission Date: 12/23/2022 7:10 PM Age: 87 y.o. [facility] Discharge Recommendation: SNF Equipment Needed: TBD at next level of care Assessment IMPRESSION: The pt is admitted with acute decompensated heart failure, and she will benefit from therapy for the listed impairments and to improve her overall functional capacity. The pt is currentlybelow her prior level of function and is currently unsafe to return home. The pt is a fall risk, and SNF is recommended at discharge. She required min to mod assist for mobility this date and overall endurance is limited. Pt did report feeling some lightheadedness with sitting and standing which did not change significantly throughout session. Rest breaks were needed with activity. NYHA level III Diagnosis: acute decompensated heart failure Prognosis: fair Performance Deficits /Impairments: Increased Pain, Decreased Functional Mobility, Decreased ADL status, Decreased ROM, Decreased Strength, Decreased Endurance, Decreased Balance, and Decreased Posture Decision Making: Medium Complexity Subjective Pt in bed and agreed to PT. Pt reported feeling lightheaded secondary to all of her medication. Pain: LE soreness no rating Past Medical History: Past Medical History: Diagnosis Date Anemia Arthritis Cancer (CMS/HCC) (HCC) Skin arm and leg GERD (gastroesophageal reflux disease) Gout Hypertension Psoriasis SOB (shortness of breath) Thyroid disease Vertigo Past Surgical History: Past Surgical History: Procedure Laterality Date AORTIC VALVE REPLACEMENT 2018 BLADDER SUSPENSION 2010 w/mesh HERNIA REPAIR 4 times [place], 1979, 2007,2010, 2006 HIATAL HERNIA REPAIR 10/21/2016 lap hiatal hernia, lap Ronen, upper GI endoscopy, dr. beltran [facility] HYSTERECTOMY 1999 SKIN CANCER EXCISION SMALL INTESTINE SURGERY 1980 UPPER GASTROINTESTINAL ENDOSCOPY 07/28/2016 Admission Diagnosis: Patient Active Problem List Diagnosis Date Noted Acute decompensated heart failure (HCC) 12/23/2022 Dyspnea, unspecified type 09/08/2022 Bradycardia 11/17/2017 Atrial fibrillation (HCC) 11/17/2017 Aortic valve replaced 11/17/2017 Polypharmacy 11/17/2017 Declining functional status 11/17/2017 Cardiomyopathy (HCC) 11/17/2017 Hypothyroidism 11/16/2017 Vitamin B12 deficiency 11/16/2017 Nausea 11/15/2017 Cognitive deficits 11/15/2017 Acute respiratory failure with hypoxia (HCC) 11/14/2017 Acute respiratory failure with hypoxia and hypercarbia (HCC) 11/14/2017 Hypertensive emergency 11/13/2017 Hiatal hernia 11/05/2016 HCAP (healthcare-associated pneumonia) 11/05/2016 Demand ischemia 11/05/2016 Stress hyperglycemia 11/05/2016 Essential hypertension 11/05/2016 Gastroesophageal reflux disease with esophagitis 10/21/2016 Aortic valve regurgitation 10/20/2016 Gastroesophageal reflux disease without esophagitis 07/17/2016 Medical Precautions: No active isolations Proper PPE donned/doffed in accordance with facility standards. Fall Risk: [place] Fall Risk Score: 85 (High Risk) Precautions/Restrictions: Lines/Drains/Airways: purwick Bed alarm, fall risk Family/Caregiver Present: none Overall Cognitive Status: WFL Overall Orientation Status: Oriented x4 Vision: wears glasses for reading and and are being used during the eval Hearing: normal Social/Functional History Patient admitted from home. Lives With: Alone Type of Home: apartment Home Layout: Single Level Home Home Access: Stairs to Enter without Rails (# of stairs: 1 curb step) Bathroom Shower/Tub: Tub/Shower Combo Toilet: Standard Home Equipment: front wheeled walker Homemaking Responsibilities: Independent Receives Help From: Other Active Real Estate Services Administrator: Prior Level of Function ADL Assistance: Independent Ambulation Assistance: Device(s) used: front wheeled walker Transfer Assistance: Independent Objective Lower Extremity Assessment AROM: Exceptions: hip flexion and knee ROM grossly WLF, DF limited by pain and stiffness but able to pass neutral, PF WFL Strength: Exceptions: 3+/5 observed through function, LE tenderness limited MMT Bed Mobility: Supine to sit: Mod Assist Sit to supine: Mod Assist Scooting: Min Assist Transfers Sit to stand: Min Assist Stand to sit: Min Assist From EOB for 3 trials to FWW Ambulation Ambulation 1 Assistive device(s) used: front wheeled walker Assist level: Min Assist Distance (ft): two steps forwards and backwards Quality of gait: decreased step height and length, flexed posture, Tone: WFL Sensation: WFL Balance: Pt able to sit EOB with supervision and stand statically with FWW and bilat UE support forgreater than one minute for 2 trials with min A to CGA Posture: fair Sitting - Static: Supervision Sitting - Dynamic: SBA Standing - Static: Min Assist Standing - Dynamic: Min Assist Upper Extremity: WFL Exercises Exercises Hip Flexion: seated april x10 bilat Knee Long Arc Quad: x10 bilat Ankle Pumps: x10 bilat Core Strengthening: standing april, non reciprocal, x 10 bilat; static standing with cues for posture, 3 trials; seated x10 overhead reaches Outcome Measures AM-PAC How much HELP from another person do you currently need Turning from your back to your side while in a flat bed without using bedrails?: A Little Moving from lying on your back to sitting on the side of a flat bed without using bedrails?: A Lot Moving to and from a bed to a chair (including a wheelchair)?: A Little Standing up from a chair using your arms (wheelchair or bedside chair)?: A Little Walking in a hospital room?: A Little Stair climbing assessed?: No AM-PAC Inpatient Mobility Raw Score (No Stairs) : 14 [facility] Score: Static standing (1 or more minutes) Plan Pt would benefit from skilled acute PT services to address Strengthening, ROM, Balance Training, Functional Mobility Training, Endurance Training, Gait Training, Stair Training, and Safety Education and Training. Frequency: 2x/week for 4 weeks Barriers: Pain, Decreased endurance, and Lower extremity weakness, co-morbidities Safety/Education Safety Safety Devices in place: call light within reach, left in bed, gait belt, and nursing care partner remainedin room to assist pt with hygiene secondary to urinary incontinence Restraints: No Education Education Given To: patient Education Provided: PT Role, PT Goals, Plan of Care, and Transfer Training Education Method: Verbal Barriers to Learning: None Education Outcome: Verbalized Understanding and Continued Education Needed Goals Patient Stated Goal: to get stronger Encounter Problems Encounter Problems (Active) Mobility Patient will ambulate 50 feet with independence and least restrictive device in order to improve safety and independence with mobility. Start: 12/24/22 Expected End: 01/21/23 Patient will ascend and descend 1 curb step with least restrictive device and independence in orderto safely negotiate home. Start: 12/24/22 Expected End: 01/21/23 Pain - Adult Transfers Patient will perform bed mobility with independence in order to improve independence and prepare for out of bed mobility. Start: 12/24/22 Expected End: 01/21/23 Patient will complete functional transfer with least restrictive device with independence in order to prepare for ambulation. Start: 12/24/22 Expected End: 01/21/23 Therapy Time Individual Co-treatment Time In 1320 (one eval mod complex, one FA) Time Out 1347 Minutes 27 Timed Code Treatment Minutes: 10 Minutes PT wore gloves throughout entire session with patient. Chandler Alarcon PT Patient's Physical Therapy Plan of Care supervision is transferred to a [facility] Therapy Services Physical Therapist. Goals and/or treatment plan was established in collaboration with patient/family/other representatives. documented in this [facility]11-17-2023 Note* Care Coordination - Trinidad Clarke - 12/25/2022 2:18 PM EST 7000 completed in [place] [id number] Note* Care Coordination - Trinidad Clarke - 12/25/2022 2:18 PM EST 7000 completed in [place] [id number] Hospital Discharge instructions* Discharge Instr - RADHA* Kizna Cedillo RN - 12/25/2022 11:52 AM EST Continuity of Care Form Patient Name: Gonzalo Lei : 1935 Admit date: 12/23/2022 Discharge date: 12/27/2022 Code Status Order: DNR-CCA Advance Directives: N Admitting Physician: Zoltan Uribe DO PCP: DIVINA SMART DO Discharging Nurse: Kinza Cedillo FINISHING MACHINE TENDER Discharging Hospital Unit/Room#: W9-540/W5540 A Discharging Unit Emergency Contact: Extended Emergency Contact Information Primary Emergency Contact: Florian Rivera Mobile Relation: None Secondary Emergency Contact: Mar Ramey Relation: None Past Surgical History: Past Surgical History: Procedure Laterality Date AORTIC VALVE REPLACEMENT 2017 BLADDER SUSPENSION 2010 w/mesh HERNIA REPAIR 4 times [place], 1979, 2007,2010, 2005 HIATAL HERNIA REPAIR 10/21/2016 lap hiatal hernia, lap [place], upper GI endoscopy, [facility]. beltran [facility] HYSTERECTOMY 1998 SKIN CANCER EXCISION SMALL INTESTINE SURGERY 1979 UPPER GASTROINTESTINAL ENDOSCOPY 07/28/2016 Immunization History: Immunization History Administered Date(s) Administered Influenza, injectable, quadrivalent, preservative free 11/06/2016 Moderna SARS-CoV-2 Vaccination 08/30/2020, 09/27/2020 Active Problems: Medical Problems Problem List * (Principal) Acute decompensated heart failure (HCC) Dyspnea, unspecified type Bradycardia Nausea Atrial fibrillation (HCC) Aortic valve replaced Cognitive deficits Polypharmacy Hypothyroidism Hypertensive emergency Declining functional status Vitamin B12 deficiency Acute respiratory failure with hypoxia (HCC) Hiatal hernia Gastroesophageal reflux disease without esophagitis Gastroesophageal reflux disease with esophagitis Cardiomyopathy (HCC) HCAP (healthcare-associated pneumonia) Demand ischemia Acute respiratory failure with hypoxia and hypercarbia (HCC) Aortic valve regurgitation Stress hyperglycemia Essential hypertension Isolation/Infection: No active isolations No active infections Nurse Assessment: Last Vital Signs: BP 134/78 (BP Location: Left arm, Patient Position: Sitting) Pulse 84 Temp 36.6 C (97.9 F) (Temporal) Resp 16 Ht 5' 1 (1.549 m) Wt 164 lb 3.2 oz (74.5 kg) SpO2 99% BMI 31.03 kg/m Last documented pain score (0-10 scale): Last Weight: Wt Readings from Last 1 Encounters: 12/25/22 164 lb 3.2 oz (74.5 kg) Mental Status: RADHA Patient Mental Status: oriented, alert, coherent, logical, thought processes intact, and able to concentrate and follow conversation IV Access: RADHA IV Access: None Nursing Mobility/ADLs: Walking Minimal assistance Transfer Minimal assistance Bathing Minimal assistance Dressing Minimal assistance Toileting Minimal assistance Feeding Independent Plant Equipment Engineer Minimal assistance Med Delivery yes Wound Care Documentation and Therapy: Elimination: Continence: Bowel: yes Bladder: no Urinary Catheter: None Colostomy/Ileostomy/Ileal Conduit: None Date of Last BM: 12/24/2022 Intake/Output Summary (Last 24 hours) at 12/25/2022 1152 Last data filed at 12/25/2022 0952 Gross per 24 hour Intake 320 ml Output 1405 ml Net -1085 ml I/O last 3 completed shifts: In: 320 (4.3 mL/kg) [P.O.:320] Out: 1150 (15.4 mL/kg) [Urine:1150 (0.4 mL/kg/hr)] Weight: 74.5 kg Safety Concerns: at risk for falls Impairments/Disabilities: none Nutrition Therapy: Current Nutrition Therapy: Oral diet: general and low sodium (2gm) Routes of Feeding: oral Liquids: thin liquids Daily Fluid Restriction: no Last Modified Barium Swallow with Video (Video Swallowing Test): not done Treatments at the Time of Hospital Discharge: Respiratory Treatments: DuoNeb every 4hrs prn for SOB Oxygen Therapy: is not on home oxygen therapy. Ventilator: No ventilator support Rehab Therapies: physical therapy, occupational therapy, nursing, and aide Weight Bearing Status/Restrictions: no restriction Other Medical Equipment (for information only, NOT a DME order): bedside commode and walker Other Treatments: none Patient's personal belongings (please select all that are sent with patient): purse, shoes, clothes. RN SIGNATURE: MANAGEMENT/SOCIAL WORK SECTION Inpatient Status Date: 12-23-22 Readmission Risk Assessment Score: @READMISSIONRISKDETAILS@ Discharging to Facility/ Agency Name: [facility] Address: [address] [facility] Fax: Dialysis Facility (if applicable) Name: Address: Dialysis Schedule: Phone: Fax: Building Equipment Inspector/Dental Assistant Instructor signature: ICIAN SECTION Prognosis: good Condition at Discharge: stable Rehab Potential (if transferring to Rehab): good Recommended Labs or Other Treatments After Discharge: bmp/cbc in 3 days Physician Certification: I certify the above information and transfer of Gonzalo Lei is necessary for the continuing treatment of the diagnosis listed and that she requires nursing home facility for less than 30 days. Update Admission H&P: No change in H&P PHYSICIAN SIGNATURE: documented in this [facility]11-17-2023 Note* Care Coordination - Trinidad Clarke - 12/25/2022 10:40 AM EST Referral placed to [facility] via [facility] per TCC request. Await review and response regarding ability to accept. TCC notified. [place] [id number] Note* Care Coordination - Trinidad Clarke - 12/25/2022 10:40 AM EST Referral placed to [facility] via [facility] per TCC request. Await review and response regarding ability to accept. TCC notified. [id number] Note* Care Coordination - Kristal Patel RN - 12/25/2022 10:19 AM EST On PO lasix now. Pt is interested in SNF. Would like to go to [facility]. Referral made. No pre cert needed is Medicare. . [id number] Note* Care Coordination - Kristal Patel RN - 12/25/2022 10:19 AM EST On PO lasix now. Pt is interested in SNF. Would like to go to [facility]. Referral made. No pre cert needed is Medicare. . [id number]* Annika Echeverria RN - 12/24/2022 9:02 PM EST patients BP 108/76 HR 70 Cr 1.28. lasix held per dr. Bravo. [id number] Note* Care Coordination - Kristal Patel RN - 12/24/2022 12:17 PM EST Care Managment Initial Assessment Date: 12/24/2022 Patient Name: Gonzalo Lei : 1935 Patient Information Source of Information: Patient Cognition/Language: WFL - Within Functional Limits Permission given to speak with patient sales representative/caregiver as indicated: Yes Confirmation of Payer with patient/family: Yes Payer Name: Medicare A and B [facility] [place]: No Confirmation of Primary Care Physician: Confirmed PCP Name: Dr Smart Seen in last 2 years?: Yes Primary Caregiver: Self If assistance needed, confirmed caregiver ready, willing and able to care for patient at discharge: Confirmed with: Living Arrangements Current Residence: Apartment Number of Floors 1 Number of Entry Steps: Bed/Bath Levels: Both first floor Facility: Facility Name: Plan to Return: Lives with: Alone Support Systems: Children, Family members, Friends/neighbors Activities of Daily Living Ambulation: Assistance Bathing/Dressing: Independent Elimination/Continence/Toileting: Independent Feeding: Independent Who Assists with Activities of Daily Living: Instrumental Activities of Daily Living Prescription Coverage: Yes Pharmacy Used: [facility] Medication Management: Independent Transportation/Shopping: Assistance Provider Transportation/Shopping Assistance Provider Name: family Transportation Mode: Car Needs Assistance with Transportation at Discharge: No Meal Preparation: Independent Laundry/Cleaning: Assistance Provider Laundry/Cleaning Assistance Provider Name: family Finances/Bill Paying: Independent Communication: Independent Types of Care Services/Equipment Utilized Care Services: (n/a) Dialysis Type: NA Durable Medical Equipment: Cane, Walker, Nebulizer Patient's Goal/Discharge Plan Patient expects to be discharged to: Home Discharge Planning Actions: Continue to follow Patient's Choice Rights and [employer] and Collaborative Relationships Disclosed as Indicated for Post-Acute Care: Interdisciplinary Team Engagement: Social Work Referral for: Additional Information: Went into room introduced self and role to pt. She appears A 0 x 3. She came to ER with c/o dizziness and near syncopal episode. Was being treated at home for UTI on PO antibiotics. Started on IV lasix. Needs PT/OT to eval. Wants to go home when stable, will follow for needs. .Electronically signedby rKistal Mitchell RN on 12/24/2022 at 12:22 PM Kristal Patel RN [id number] Note* Care Coordination - Kristal Patel RN - 12/24/2022 12:17 PM EST Care Managment Initial Assessment Date: 12/24/2022 Patient Name: Gonzalo Lei : 1935 Patient Information Source of Information: Patient Cognition/Language: WFL - Within Functional Limits Permission given to speak with patient sales representative/caregiver as indicated: Yes Confirmation of Payer with patient/family: Yes Payer Name: Medicare A and B : No Confirmation of Primary Care Physician: Confirmed PCP Name: Dr Smart Seen in last 2 years?: Yes Primary Caregiver: Self If assistance needed, confirmed caregiver ready, willing and able to care for patient at discharge: Confirmed with: Living Arrangements Current Residence: Apartment Number of Floors 1 Number of Entry Steps: Bed/Bath Levels: Both first floor Facility: Facility Name: Plan to Return: Lives with: Alone Support Systems: Children, Family members, Friends/neighbors Activities of Daily Living Ambulation: Assistance Bathing/Dressing: Independent Elimination/Continence/Toileting: Independent Feeding: Independent Who Assists with Activities of Daily Living: Instrumental Activities of Daily Living Prescription Coverage: Yes Pharmacy Used: [facility] Medication Management: Independent Transportation/Shopping: Assistance Provider Transportation/Shopping Assistance Provider Name: family Transportation Mode: Car Needs Assistance with Transportation at Discharge: No Meal Preparation: Independent Laundry/Cleaning: Assistance Provider Laundry/Cleaning Assistance Provider Name: family Finances/Bill Paying: Independent Communication: Independent Types of Care Services/Equipment Utilized Care Services: (n/a) Dialysis Type: NA Durable Medical Equipment: Cane, Walker, Nebulizer Patient's Goal/Discharge Plan Patient expects to be discharged to: Home Discharge Planning Actions: Continue to follow Patient's Choice Rights and [employer] and Collaborative Relationships Disclosed as Indicated for Post-Acute Care: Interdisciplinary Team Engagement: Social Work Referral for: Additional Information: Went into room introduced self and role to pt. She appears A 0 x 3. She came to ER with c/o dizziness and near syncopal episode. Was being treated at home for UTI on PO antibiotics. Started on IV lasix. Needs PT/OT to eval. Wants to go home when stable, will follow for needs. .Electronically signedby Kristal Mitchell RN on 12/24/2022 at 12:22 PM Kristal Patel RN [facility]11-16-2023 History and physical note* Attila Joya MD - 12/24/2022 10:51 AM EST Images from the original note were not included. Attending History and Physical Admit Date: 12/23/2022 PCP: DIVINA SMART DO CHIEF COMPLAINT: dizziness / elevated BP Reason for Admission: same History Obtained From: patient HISTORY OF PRESENT ILLNESS: Gonzalo Lei is a 87 y.o. female who presents to the emergency department with lightheadedness. The patient reports that she was sitting on her couch today when suddenly she felt very lightheaded and felt she was going to lose consciousness. She attempted to stand and had a near syncopal episode. She reports that throughout the rest of the day she felt very lightheaded which prompted her to call 911. she states she called her neighbor who checked her BP and it was very elevated - she does not recall the actual reading. She admits to some bilateral lower extremity swelling and shortness of breath on exertion. She denies any chest pain or abdominal pain. She is currently day 2 of antibiotics for treatment of a simple UTI. She denies flank pain, fevers, or chills. She is feeling a little better this AM - feels drugged up after the pain medication she got for her leg pain. No cp or sob. Dizziness is improved at this time. Past Medical History: Past Medical History: Diagnosis Date Anemia Arthritis Cancer (CMS/HCC) (HCC) Skin arm and leg GERD (gastroesophageal reflux disease) Gout Hypertension Psoriasis SOB (shortness of breath) Thyroid disease Vertigo Past Surgical History: Past Surgical History: Procedure Laterality Date AORTIC VALVE REPLACEMENT 2018 BLADDER SUSPENSION 2010 w/mesh HERNIA REPAIR 4 times [place], 1979, 2007,2010, 2005 HIATAL HERNIA REPAIR 10/21/2016 lap hiatal hernia, lap Ronen, upper GI endoscopy, dr. beltran ach HYSTERECTOMY 1999 SKIN CANCER EXCISION SMALL INTESTINE SURGERY 1979 UPPER GASTROINTESTINAL ENDOSCOPY 07/28/2016 Social History: Social History Socioeconomic History Marital status: Spouse name: Not on file Number of children: Not on file Years of education: Not on file Highest education level: Not on file Occupational History Not on file Tobacco Use Smoking status: Never Smokeless tobacco: Never Substance and Sexual Activity Alcohol use: No Drug use: No Sexual activity: Not on file Other Topics Concern Not on file Social History Narrative Not on file Social Determinants of Health Financial Resource Strain: Medium Risk (09/09/2022) Overall Financial Resource Strain (CARDIA) Difficulty of Paying Living Expenses: Somewhat hard Food Insecurity: No Food Insecurity (09/09/2022) Hunger Vital Sign Worried About Running Out of Food in the Last Year: Never true Ran Out of Food in the Last Year: Never true Transportation Needs: Unmet Transportation Needs (09/09/2022) PRAPARE - Transportation Lack of Transportation (Medical): Yes Lack of Transportation (Non-Medical): Yes Physical Activity: Inactive (09/09/2022) Exercise Vital Sign Days of Exercise per Week: 0 days Minutes of Exercise per Session: 0 min Stress: Stress Concern Present (09/09/2022) [employer] - Occupational Stress Questionnaire Feeling of Stress : Rather much Social Connections: Moderately Integrated (09/09/2022) Social Connection and Isolation Panel [NHANES] Frequency of Communication with Friends and Family: Twice a week Frequency of Social Gatherings with Friends and Family: Once a week Attends Alevism Services: 1 to 4 times per year Active Member of Clubs or Organizations: No Attends Club or Organization Meetings: 1 to 4 times per year Marital Status: Intimate Partner Violence: Not At Risk (12/24/2022) Humiliation, Afraid, Rape, and Kick questionnaire Fear of Current or Ex-Partner: No Emotionally Abused: No Physically Abused: No Sexually Abused: No Housing Stability: High Risk (09/09/2022) Housing Stability Vital Sign Unable to Pay for Housing in the Last Year: No Number of Places Lived in the Last Year: 1 Unstable Housing in the Last Year: Yes Family History: Family History Problem Relation Name Age of Onset Hypertension Mother Colon cancer Neg Hx Hypertension Father Medications Prior to Admission: No current facility-administered medications on file prior to encounter. Current Outpatient Medications on File Prior to Encounter Medication Sig Dispense Refill furosemide (Lasix) 20 MG tablet Take 1 tablet (20 mg) by mouth daily. Do not start before September. 30 tablet 11 ipratropium-albuterol (Duo-Neb) 0.5-2.5 mg/3 mL nebulizer solution Take 3 mL by nebulization 4 times daily as needed for shortness of breath. 180 mL 11 levothyroxine (Synthroid, Levoxyl) 125 MCG tablet Take 125 mcg by mouth daily. losartan (Cozaar) 50 MG tablet Take 25 mg by mouth daily. melatonin 5 MG tablet Take 1 tablet (5 mg) by mouth Nightly as needed. 0 pantoprazole (ProtoNix) 40 MG EC tablet Take 1 tablet (40 mg) by mouth daily (before lunch). Do notcrush, chew, or split. Do not start before September 12, 2022. 30 tablet 11 [DISCONTINUED] metoprolol tartrate (Lopressor) 25 MG tablet 12.5 mg 2 times daily. Allergies: Allergies Allergen Reactions Levofloxacin Other reaction(s): delerium REVIEW OF SYSTEMS: Per HPI Vitals: BP 131/72 (BP Location: Left arm, Patient Position: Lying) Pulse 74 Temp 36.7 C (98 F) (Temporal) Resp 18 Ht 5' 1 (1.549 m) Wt 208 lb 6.4 oz (94.5 kg) SpO2 96% BMI 39.38 kg/m BMI Classification: Obese (BMI 30.0-39.9) Pulse Ox: SpO2 Av.8 % Min: 92 % Max: 100 % Supplemental O2: PHYSICAL EXAM: Physical Exam Constitutional: Appearance: Normal appearance. HENT: Mouth/Throat: Mouth: Mucous membranes are moist. Cardiovascular: Rate and Rhythm: Normal rate and regular rhythm. Pulmonary: Effort: Pulmonary effort is normal. Breath sounds: Normal breath sounds. Abdominal: General: Abdomen is flat. Bowel sounds are normal. Palpations: Abdomen is soft. Musculoskeletal: Comments: Trace edema bilaterally Skin: General: Skin is warm. Neurological: General: No focal deficit present. Mental Status: She is alert and oriented to person, place, and time. DATA: CBC: Recent Labs 12/23/221938 WBC 8.1 RBC 4.69 HGB 14.1 HCT 43.1 MCV 91.9 RDW 14.1 PLT 158 BMP: Recent Labs 12/23/22193812/24/22 0330 NA 135 137 K 4.5 4.5 CL 99 100 CO2 26 28 BUN 24* 26* CREATININE 1.22* 1.28* GLUCOSE 135* 124* CALCIUM 8.9 9.7 ANIONGAP 10 9 LIVER PROFILE: Recent Labs 12/23/221938 AST 25 ALT 22 BILITOT 0.4 ALKPHOS 67 PROT 7.2 PT/INR: No results for input(s): PROTIME, INR in the last 72 hours. CARDIAC ENZYMES: Recent Labs 12/23/221938 TROPONINI 0.044* Procalcitonin: No results found for: PROCAL Urine Culture: Results for orders placed or performed during the hospital encounter of 09/08/22 Urine culture Specimen: Urine, Clean Catch Result Value Ref Range Urine Culture >100,000 CFU/mL Escherichia coli (A) Susceptibility Escherichia coli - BROTH MICRODILUTION Amoxicillin / Clavulanate 4 Susceptible ug/ml Ampicillin >=32 Resistant ug/ml Ampicillin / Sulbactam 16 Intermediate ug/ml Aztreonam <=1 Susceptible ug/ml Cefazolin <=4 Susceptible ug/ml Cefepime <=1 Susceptible ug/ml Ceftriaxone <=1 Susceptible ug/ml Ciprofloxacin <=0.25 Susceptible ug/ml Gentamicin <=1 Susceptible ug/ml Meropenem <=0.25 Susceptible ug/ml Nitrofurantoin <=16 Susceptible ug/ml Piperacillin / Tazobactam <=4 Susceptible ug/ml Trimethoprim / Sulfamethoxazole >=320 Resistant ug/ml COVID-19 PCR: No results for input(s): COVID19 in the last 72 hours. I reviewed: [x] laboratory results [x] radiographic results At the time of today's encounter. Pt was advised of the results. Assessment Data: (CAT1) Reviewed 3 or more labs/studies ordered by another provider not previously counted (each=1, panels count as 1). (LOW: 2x CAT1 or independent historian MOD: 3x CAT1 or 1x CAT3 EXTENSIVE: 3x CAT1 and 1x CAT3) Acute, acute on chronic, unstable/uncontrolled chronic problems/diagnoses: Dizziness - ? Due to transient elevation in BP vs vertigo Mild CHFpEF exacerbation Recent UTI Stable chronic problems affecting care, new non-acute diagnoses: Obesity HTN Vertigo Plan As a result of the above findings & factors, the following mgmt was pursued: - will check CT head given her dizziness - monitor BP - back down to normal levels at this time - await PT eval - change back to PO lasix tomorrow - UA does not appear infected - am labs, replace lytes prn - PT/OT/CM/SW - delirium precautions: increase activity - DVT prophylaxis: enoxaparin and encourage ambulation Complexity: Acute illness with systemic symptoms (MOD). Risk: Prescription drug/IVF/colloid was initiated, discontinued, adjusted; or reviewed with decision to maintain current orders (MOD). Advance Directive: DNR-CCA Anticipated Discharge - Date - 12/25 - Location - Home with Home Health Care - Pending the following - PT eval Total time spent (which include face to face and non face to face encounters) : greater than 48 minutes Extended Emergency Contact Information Primary Emergency Contact: Florian Rivera Mobile Relation: None Secondary Emergency Contact: Mar Ramey Relation: None Attila Joya MD Division of Hospitalist Medicine [facility]patient Medical Services[id number] History and physical note* Attila Joya MD - 12/24/2022 10:51 AM EST Images from the original note were not included. Attending History and Physical Admit Date: 12/23/2022 PCP: DIVINA SMART DO CHIEF COMPLAINT: dizziness / elevated BP Reason for Admission: same History Obtained From: patient HISTORY OF PRESENT ILLNESS: Gonzalo Lei is a 87 y.o. female who presents to the emergency department with lightheadedness. The patient reports that she was sitting on her couch today when suddenly she felt very lightheaded and felt she was going to lose consciousness. She attempted to stand and had a near syncopal episode. She reports that throughout the rest of the day she felt very lightheaded which prompted her to call 911. she states she called her neighbor who checked her BP and it was very elevated - she does not recall the actual reading. She admits to some bilateral lower extremity swelling and shortness of breath on exertion. She denies any chest pain or abdominal pain. She is currently day 2 of antibiotics for treatment of a simple UTI. She denies flank pain, fevers, or chills. She is feeling a little better this AM - feels drugged up after the pain medication she got for her leg pain. No cp or sob. Dizziness is improved at this time. Past Medical History: Past Medical History: Diagnosis Date Anemia Arthritis Cancer (CMS/HCC) (HCC) Skin arm and leg GERD (gastroesophageal reflux disease) Gout Hypertension Psoriasis SOB (shortness of breath) Thyroid disease Vertigo Past Surgical History: Past Surgical History: Procedure Laterality Date AORTIC VALVE REPLACEMENT 2018 BLADDER SUSPENSION 2010 w/mesh HERNIA REPAIR 4 times [place], 1979, 2007,2010, 2005 HIATAL HERNIA REPAIR 10/21/2016 lap hiatal hernia, lap [place], upper GI endoscopy, dr. beltran ach HYSTERECTOMY 1999 SKIN CANCER EXCISION SMALL INTESTINE SURGERY 1980 UPPER GASTROINTESTINAL ENDOSCOPY 07/28/2016 Social History: Social History Socioeconomic History Marital status: Spouse name: Not on file Number of children: Not on file Years of education: Not on file Highest education level: Not on file Occupational History Not on file Tobacco Use Smoking status: Never Smokeless tobacco: Never Substance and Sexual Activity Alcohol use: No Drug use: No Sexual activity: Not on file Other Topics Concern Not on file Social History Narrative Not on file Social Determinants of Health Financial Resource Strain: Medium Risk (09/09/2022) Overall Financial Resource Strain (CARDIA) Difficulty of Paying Living Expenses: Somewhat hard Food Insecurity: No Food Insecurity (09/09/2022) Hunger Vital Sign Worried About Running Out of Food in the Last Year: Never true Ran Out of Food in the Last Year: Never true Transportation Needs: Unmet Transportation Needs (09/09/2022) PRAPARE - Transportation Lack of Transportation (Medical): Yes Lack of Transportation (Non-Medical): Yes Physical Activity: Inactive (09/09/2022) Exercise Vital Sign Days of Exercise per Week: 0 days Minutes of Exercise per Session: 0 min Stress: Stress Concern Present (09/09/2022) [employer] - Occupational Stress Questionnaire Feeling of Stress : Rather much Social Connections: Moderately Integrated (09/09/2022) Social Connection and Isolation Panel [NHANES] Frequency of Communication with Friends and Family: Twice a week Frequency of Social Gatherings with Friends and Family: Once a week Attends Alevism Services: 1 to 4 times per year Active Member of Clubs or Organizations: No Attends Club or Organization Meetings: 1 to 4 times per year Marital Status: Intimate Partner Violence: Not At Risk (12/24/2022) Humiliation, Afraid, Rape, and Kick questionnaire Fear of Current or Ex-Partner: No Emotionally Abused: No Physically Abused: No Sexually Abused: No Housing Stability: High Risk (09/09/2022) Housing Stability Vital Sign Unable to Pay for Housing in the Last Year: No Number of Places Lived in the Last Year: 1 Unstable Housing in the Last Year: Yes Family History: Family History Problem Relation Name Age of Onset Hypertension Mother Colon cancer Neg Hx Hypertension Father Medications Prior to Admission: No current facility-administered medications on file prior to encounter. Current Outpatient Medications on File Prior to Encounter Medication Sig Dispense Refill furosemide (Lasix) 20 MG tablet Take 1 tablet (20 mg) by mouth daily. Do not start before September. 30 tablet 11 ipratropium-albuterol (Duo-Neb) 0.5-2.5 mg/3 mL nebulizer solution Take 3 mL by nebulization 4 times daily as needed for shortness of breath. 180 mL 11 levothyroxine (Synthroid, Levoxyl) 125 MCG tablet Take 125 mcg by mouth daily. losartan (Cozaar) 50 MG tablet Take 25 mg by mouth daily. melatonin 5 MG tablet Take 1 tablet (5 mg) by mouth Nightly as needed. 0 pantoprazole (ProtoNix) 40 MG EC tablet Take 1 tablet (40 mg) by mouth daily (before lunch). Do notcrush, chew, or split. Do not start before September 12, 2022. 30 tablet 11 [DISCONTINUED] metoprolol tartrate (Lopressor) 25 MG tablet 12.5 mg 2 times daily. Allergies: Allergies Allergen Reactions Levofloxacin Other reaction(s): delerium REVIEW OF SYSTEMS: Per HPI Vitals: BP 131/72 (BP Location: Left arm, Patient Position: Lying) Pulse 74 Temp 36.7 C (98 F) (Temporal) Resp 18 Ht 5' 1 (1.549 m) Wt 208 lb 6.4 oz (94.5 kg) SpO2 96% BMI 39.38 kg/m BMI Classification: Obese (BMI 30.0-39.9) Pulse Ox: SpO2 Av.8 % Min: 92 % Max: 100 % Supplemental O2: PHYSICAL EXAM: Physical Exam Constitutional: Appearance: Normal appearance. HENT: Mouth/Throat: Mouth: Mucous membranes are moist. Cardiovascular: Rate and Rhythm: Normal rate and regular rhythm. Pulmonary: Effort: Pulmonary effort is normal. Breath sounds: Normal breath sounds. Abdominal: General: Abdomen is flat. Bowel sounds are normal. Palpations: Abdomen is soft. Musculoskeletal: Comments: Trace edema bilaterally Skin: General: Skin is warm. Neurological: General: No focal deficit present. Mental Status: She is alert and oriented to person, place, and time. DATA: CBC: Recent Labs 12/23/221938 WBC 8.1 RBC 4.69 HGB 14.1 HCT 43.1 MCV 91.9 RDW 14.1 PLT 158 BMP: Recent Labs 12/23/22193812/24/22 0330 NA 135 137 K 4.5 4.5 CL 99 100 CO2 26 28 BUN 24* 26* CREATININE 1.22* 1.28* GLUCOSE 135* 124* CALCIUM 8.9 9.7 ANIONGAP 10 9 LIVER PROFILE: Recent Labs 12/23/221938 AST 25 ALT 22 BILITOT 0.4 ALKPHOS 67 PROT 7.2 PT/INR: No results for input(s): PROTIME, INR in the last 72 hours. CARDIAC ENZYMES: Recent Labs 12/23/221938 TROPONINI 0.044* Procalcitonin: No results found for: PROCAL Urine Culture: Results for orders placed or performed during the hospital encounter of 09/08/22 Urine culture Specimen: Urine, Clean Catch Result Value Ref Range Urine Culture >100,000 CFU/mL Escherichia coli (A) Susceptibility Escherichia coli - BROTH MICRODILUTION Amoxicillin / Clavulanate 4 Susceptible ug/ml Ampicillin >=32 Resistant ug/ml Ampicillin / Sulbactam 16 Intermediate ug/ml Aztreonam <=1 Susceptible ug/ml Cefazolin <=4 Susceptible ug/ml Cefepime <=1 Susceptible ug/ml Ceftriaxone <=1 Susceptible ug/ml Ciprofloxacin <=0.25 Susceptible ug/ml Gentamicin <=1 Susceptible ug/ml Meropenem <=0.25 Susceptible ug/ml Nitrofurantoin <=16 Susceptible ug/ml Piperacillin / Tazobactam <=4 Susceptible ug/ml Trimethoprim / Sulfamethoxazole >=320 Resistant ug/ml COVID-19 PCR: No results for input(s): COVID19 in the last 72 hours. I reviewed: [x] laboratory results [x] radiographic results At the time of today's encounter. Pt was advised of the results. Assessment Data: (CAT1) Reviewed 3 or more labs/studies ordered by another provider not previously counted (each=1, panels count as 1). (LOW: 2x CAT1 or independent historian MOD: 3x CAT1 or 1x CAT3 EXTENSIVE: 3x CAT1 and 1x CAT3) Acute, acute on chronic, unstable/uncontrolled chronic problems/diagnoses: Dizziness - ? Due to transient elevation in BP vs vertigo Mild CHFpEF exacerbation Recent UTI Stable chronic problems affecting care, new non-acute diagnoses: Obesity HTN Vertigo Plan As a result of the above findings & factors, the following mgmt was pursued: - will check CT head given her dizziness - monitor BP - back down to normal levels at this time - await PT eval - change back to PO lasix tomorrow - UA does not appear infected - am labs, replace lytes prn - PT/OT/CM/SW - delirium precautions: increase activity - DVT prophylaxis: enoxaparin and encourage ambulation Complexity: Acute illness with systemic symptoms (MOD). Risk: Prescription drug/IVF/colloid was initiated, discontinued, adjusted; or reviewed with decision to maintain current orders (MOD). Advance Directive: DNR-CCA Anticipated Discharge - Date - 12/25 - Location - Home with Home Health Care - Pending the following - PT eval Total time spent (which include face to face and non face to face encounters) : greater than 48 minutes Extended Emergency Contact Information Primary Emergency Contact: Florian Rivera Mobile Relation: None Secondary Emergency Contact: TanvirMar Relation: None Attila Joya MD Division of Hospitalist Medicine Inpatient Medical Services/[facility] documented in this [facility]11-16-2023 Emergency department Note* Nicci Vaughn RN - 12/24/2022 12:23 AM EST Report given to Physicians for transport Nicci Vaughn RN 12/24/2222 [id number] Emergency department Note* Nicci Vaughn RN - 12/24/2022 12:23 AM EST Report given to Physicians for transport Nicci Vaughn RN 12/24/2222 * Brianne Meza RN - 12/23/2022 11:49 PM EST Patient loudly moaning in pain. Patient states that she is having cramping in bilateral feet and left leg. DO notified and en route to evaluate patient. Brianne Meza RN 12/23/227 * Kristal Beard - 12/23/2022 10:26 PM EST Pt complaining of severe cramping of left lower leg and left foot tingling. Pillow placed under legwith minimal relief. Pt requests something for pain in the leg. Nurse and dr were advised. Kristal Beard 12/23/227 * Astrid Mohan RN - 12/23/2022 8:53 PM EST Assisted putting pt on bedpan. Pt having difficulty moving and turning. Pt states she had a purewick placed on previous admissions and really liked it. Urine collection system placed and hooked up tosuction. Pt's val area is slightly reddened and pt smells of stale urine. Val area cleansed with wipes. Astrid Mohan RN 12/23/222056 * Marek Castano DO - 12/23/2022 7:07 PM EST EMERGENCY DEPARTMENT ENCOUNTER Pt Name: Gonzalo Lei Birthdate 1935 Date of evaluation: 12/23/2022 ED Provider: Marek Castano DO CHIEF COMPLAINT Chief Complaint Patient presents with Dizziness HISTORY OF PRESENT ILLNESS (Location/Symptom, Timing/Onset, Context/Setting, Quality, Duration, Modifying Factors, Severity) Note limiting factors. I wore appropriate PPE for the entirety of this encounter. HPI Gonzalo Lei is a 87 y.o. female who presents to the emergency department with lightheadedness. The patient reports that she was sitting on her couch today when suddenly she felt very lightheaded and felt she was going to lose consciousness. She attempted to stand and had a near syncopal episode. She reports that throughout the rest of the day she felt very lightheaded which prompted her to call 911. She admits to some bilateral lower extremity swelling and shortness of breath on exertion. She denies any chest pain or abdominal pain. She is currently day 2 of antibiotics for treatment of a simple UTI. She denies flank pain, fevers, or chills. Nursing Notes were reviewed. Limitations to history: Outside historians: REVIEW OF SYSTEMS Review of Systems Constitutional: Negative for fever. Respiratory: Positive for shortness of breath. Cardiovascular: Negative for chest pain. Gastrointestinal: Negative for abdominal pain. Neurological: Positive for syncope and light-headedness. PAST MEDICAL HISTORY Past Medical History: Diagnosis Date Anemia Arthritis Cancer (CMS/HCC) (HCC) Skin arm and leg GERD (gastroesophageal reflux disease) Gout Hypertension Psoriasis SOB (shortness of breath) Thyroid disease Vertigo SURGICAL HISTORY Past Surgical History: Procedure Laterality Date AORTIC VALVE REPLACEMENT 2017 BLADDER SUSPENSION 2010 w/mesh HERNIA REPAIR 4 times [place], 1979, 2007,2010, 2005 HIATAL HERNIA REPAIR 10/21/2016 lap hiatal hernia, lap Ronen, upper GI endoscopy, dr. beltran ach HYSTERECTOMY 1998 SKIN CANCER EXCISION SMALL INTESTINE SURGERY 1979 UPPER GASTROINTESTINAL ENDOSCOPY 07/28/2016 CURRENT MEDICATIONS Previous Medications FUROSEMIDE (LASIX) 20 MG TABLET Take 1 tablet (20 mg) by mouth daily. Do not start before September. IPRATROPIUM-ALBUTEROL (DUO-NEB) 0.5-2.5 MG/3 ML NEBULIZER SOLUTION Take 3 mL by nebulization 4 times daily as needed for shortness of breath. LEVOTHYROXINE (SYNTHROID, LEVOXYL) 125 MCG TABLET Take 125 mcg by mouth daily. LOSARTAN (COZAAR) 50 MG TABLET Take 25 mg by mouth daily. MELATONIN 5 MG TABLET Take 1 tablet (5 mg) by mouth Nightly as needed. METOPROLOL TARTRATE (LOPRESSOR) 25 MG TABLET 12.5 mg 2 times daily. PANTOPRAZOLE (PROTONIX) 40 MG EC TABLET Take 1 tablet (40 mg) by mouth daily (before lunch). Do notcrush, chew, or split. Do not start before September 12, 2022. ALLERGIES Levofloxacin FAMILY HISTORY Family History Problem Relation Name Age of Onset Hypertension Mother Colon cancer Neg Hx Hypertension Father SOCIAL HISTORY Social History Socioeconomic History Marital status: Tobacco Use Smoking status: Never Smokeless tobacco: Never Substance and Sexual Activity Alcohol use: No Drug use: No Social Determinants of Health Financial Resource Strain: Medium Risk (09/09/2022) Overall Financial Resource Strain (CARDIA) Difficulty of Paying Living Expenses: Somewhat hard Food Insecurity: No Food Insecurity (09/09/2022) Hunger Vital Sign Worried About Running Out of Food in the Last Year: Never true Ran Out of Food in the Last Year: Never true Transportation Needs: Unmet Transportation Needs (09/09/2022) PRAPARE - Transportation Lack of Transportation (Medical): Yes Lack of Transportation (Non-Medical): Yes Physical Activity: Inactive (09/09/2022) Exercise Vital Sign Days of Exercise per Week: 0 days Minutes of Exercise per Session: 0 min Stress: Stress Concern Present (09/09/2022) [employer] - Occupational Stress Questionnaire Feeling of Stress : Rather much Social Connections: Moderately Integrated (09/09/2022) Social Connection and Isolation Panel [NHANES] Frequency of Communication with Friends and Family: Twice a week Frequency of Social Gatherings with Friends and Family: Once a week Attends Alevism Services: 1 to 4 times per year Active Member of Clubs or Organizations: No Attends Club or Organization Meetings: 1 to 4 times per year Marital Status: Intimate Partner Violence: Not At Risk (09/09/2022) Humiliation, Afraid, Rape, and Kick questionnaire Fear of Current or Ex-Partner: No Emotionally Abused: No Physically Abused: No Sexually Abused: No Housing Stability: High Risk (09/09/2022) Housing Stability Vital Sign Unable to Pay for Housing in the Last Year: No Number of Places Lived in the Last Year: 1 Unstable Housing in the Last Year: Yes SCREENINGS PHYSICAL EXAM ED Triage Vitals [12/23/22 1911] Temp Heart Rate Resp BP 36.5 C (97.7 F) 74 16 (!) 144/79 SpO2 Temp Source Heart Rate Source Patient Position 97 % Oral Monitor Lying BP Location FiO2 (%) Right arm -- Physical Exam Constitutional: General: She is not in acute distress. HENT: Head: Normocephalic. Eyes: Conjunctiva/sclera: Conjunctivae normal. Cardiovascular: Rate and Rhythm: Normal rate and regular rhythm. Pulmonary: Effort: Pulmonary effort is normal. Abdominal: General: Abdomen is flat. Tenderness: There is no abdominal tenderness. Musculoskeletal: General: No deformity. Skin: General: Skin is warm and dry. Psychiatric: Mood and Affect: Mood normal. DIAGNOSTIC RESULTS RADIOLOGY (Per Emergency Physician): Interpretation per the Radiologist below, if available at the time of this note: XR chest 1 view Final Result Bibasal atelectasis. Report Dictated on Electronically Signed By: Eddie Harris DO Electronically Signed Date/Time: 12/23/2022 8:20 PM EST LABS: Labs Reviewed NT PRO BNP - Abnormal Result Value NT PRO BNP 958 (*) BASIC METABOLIC PANEL - Abnormal SODIUM 135 POTASSIUM 4.5 CHLORIDE 99 CARBON DIOXIDE 26 UREA NITROGEN 24 (*) CREATININE 1.22 (*) GLUCOSE 135 (*) CALCIUM 8.9 ANION GAP 10 eGFR 43.0 (*) TROPONIN I - Abnormal TROPONIN I 0.044 (*) Narrative: Patients with high levels of Biotin oral intake (ie >5 mg/day) may have falsely decreased Troponin levels. CBC WITH AUTO DIFFERENTIAL - Abnormal Auto WBC 8.1 RBC 4.69 Hemoglobin 14.1 Hematocrit 43.1 MCV 91.9 MCH 30.1 MCHC 32.7 RDW 14.1 Platelets 158 MPV 11.6 Neutrophils Relative 66.2 Lymphocytes Relative 21.6 Monocytes Relative 9.7 Eosinophils Relative 1.4 Basophils Relative 0.6 Immature Grans % 0.5 (*) Neutrophils Absolute 5.4 Lymphocytes Absolute 1.8 Monocytes Absolute 0.8 Eosinophils Absolute 0.1 Basophils Absolute 0.1 Immature Grans Absolute 0.0 COMPLETE URINALYSIS - Abnormal Color, Urine Light Yellow Clarity, Urine Clear pH, Urine 6.0 Leukocytes, Urine 75 (*) Nitrite, Urine Negative Protein, Urine Negative Glucose, Urine Normal Bilirubin, Urine Negative Ketones, Urine Negative Urobilinogen, Urine Normal Blood, Urine Negative Volume, Urine 12 mL RBC, Urine 0-2 WBC, Urine 3-5 Squamous Epithelial, Urine 3-5 Bacteria, Urine Moderate (*) Mucus, Urine Few Amorphous Urates, Urine Few (*) WBC Clumps, Urine Few (*) SPECIFIC GRAVITY OF URINE (NUMERIC) 1.007 HEPATIC FUNCTION PANEL - Normal BILIRUBIN, TOTAL 0.4 BILIRUBIN, DIRECT 0.0 ALKALINE PHOSPHATASE 67 AST (SGOT) 25 ALT 22 ALBUMIN 4.2 TOTAL PROTEIN 7.2 COMPLETE URINALYSIS WITH REFLEX TO CULTURE Narrative: The following orders were created for panel order Urinalysis complete with reflex to Culture. Procedure Abnormality Status --------- ------ Complete Urinalysis[[id number]] Abnormal Final result Please view results for these tests on the individual orders. All other labs were within normal range or not returned as of this dictation. EMERGENCY DEPARTMENT COURSE and DIFFERENTIAL DIAGNOSIS/MDM: Vitals: Vitals: 12/23/221910 BP: (!) 144/79 BP Location: Right arm Patient Position: Lying Pulse: 74 Resp: 16 Temp: 36.5 C (97.7 F) TempSrc: Oral SpO2: 97% Weight: 96.2 kg (212 lb) Height: 1.549 m (5' 1) Medications aspirin tablet 325 mg (325 mg Oral Given 12/23/222052) furosemide (Lasix) injection 40 mg (40 mg IntraVENous Given 12/23/222052) MDM The patient presented with chief complaint of lightheadedness. See history and physical exam above.The patient appears well at this time no acute distress, vitals are stable. Differential diagnosis includes but is not limited to anemia, electrolyte abnormality, HUY, acute heart failure, pneumonia,UTI. To aid in management, I performed an independent interpretation of all laboratory tests, EKG, imaging, and other diagnostics ordered. EKG reveals normal sinus rhythm with no evidence of acute ischemia. This appears similar to her previous EKG. Chest x-ray is negative for focal infiltrate as interpreted by me, see radiologist reportfor details. Labs significant for elevated BNP and elevated troponin. The patient has dyspnea on exertion and bilateral lower extremity swelling this is likely acute decompensated heart failure. The patient was given oral aspirin and Lasix 40 mg IV. Other blood counts, x-rays, and kidney function are unremarkable. The patient was updated on the results and questions were answered. She reports feeling continually lightheaded. The patient will be admitted for further telemetry monitoring and evaluation. I discussed the case with admitting physician, Dr. Uribe, who was agreeable. Patient's care was impacted by Heart disease. I Marek Castano DO am the puller through of record. PROCEDURES: Unless otherwise noted below, none Procedures FINAL IMPRESSION 1. Acute decompensated heart failure (HCC) DISPOSITION Admit 12/23/2022 08:49:52 PM PATIENT REFERRED TO: No follow-up provider specified. DISCHARGE MEDICATIONS: New Prescriptions No medications on file (Comment: Please note this report has been produced using speech recognition software and may contain errors related to that system including errors in grammar, punctuation, and spelling, as well as words and phrases that may be inappropriate. If there are any questions or concerns please feel freeto contact the dictating provider for clarification.) Marek Castano DO (electronically signed) Emergency Medicine Provider Marek Castano DO 12/23/222114 * Nicci Vaughn RN - 12/23/2022 7:07 PM EST Gonzalo Lei, age 87, ambulated to ED7 with a chief complaint of dizziness. Pt stated about 1800, she started to feel dizzy and almost passed out. Pt denies SOB. Pt stated she was recently seen and diagnosed with a UTI. Pt is currently taking Macrobid. Pt stated her head feels funny. Vitals obtained. Call light within reach. documented in this [facility]11-15-2023 Emergency department Note* Brianne Meza RN - 12/23/2022 11:49 PM EST Patient loudly moaning in pain. Patient states that she is having cramping in bilateral feet and left leg. DO notified and en route to evaluate patient. Brianne Meza RN [facility]23/22 [id number]* Kristal Beard - 12/23/2022 10:26 PM EST Pt complaining of severe cramping of left lower leg and left foot tingling. Pillow placed under legwith minimal relief. Pt requests something for pain in the leg. Nurse and dr were advised. Kristal Beard 12/23/222226 [address]15-2023 Emergency department Note* Astrid Mohan RN - 12/23/2022 8:53 PM EST Assisted putting pt on bedpan. Pt having difficulty moving and turning. Pt states she had a purewick placed on previous admissions and really liked it. Urine collection system placed and hooked up tosuction. Pt's val area is slightly reddened and pt smells of stale urine. Val area cleansed with wipes. Astrid Mohan RN 12/23/222056 [address]15-2023 Emergency department Triage note* Nicci Vaughn RN - 12/23/2022 7:07 PM EST Gonzalo Lei, age 87, ambulated to ED7 with a chief complaint of dizziness. Pt stated about 1800, she started to feel dizzy and almost passed out. Pt denies SOB. Pt stated she was recently seen and diagnosed with a UTI. Pt is currently taking Macrobid. Pt stated her head feels funny. Vitals obtained. Call light within reach. [address]15-2023 Physician Emergency department Note* Marek Castano DO - 12/23/2022 7:07 PM EST EMERGENCY DEPARTMENT ENCOUNTER Pt Name: Gonzalo Lei Birthdate 1935 Date of evaluation: 12/23/2022 ED Provider: Marek Castano DO CHIEF COMPLAINT Chief Complaint Patient presents with Dizziness HISTORY OF PRESENT ILLNESS (Location/Symptom, Timing/Onset, Context/Setting, Quality, Duration, Modifying Factors, Severity) Note limiting factors. I wore appropriate PPE for the entirety of this encounter. HPI Gonzalo Lei is a 87 y.o. female who presents to the emergency department with lightheadedness. The patient reports that she was sitting on her couch today when suddenly she felt very lightheaded and felt she was going to lose consciousness. She attempted to stand and had a near syncopal episode. She reports that throughout the rest of the day she felt very lightheaded which prompted her to call 911. She admits to some bilateral lower extremity swelling and shortness of breath on exertion. She denies any chest pain or abdominal pain. She is currently day 2 of antibiotics for treatment of a simple UTI. She denies flank pain, fevers, or chills. Nursing Notes were reviewed. Limitations to history: Outside historians: REVIEW OF SYSTEMS Review of Systems Constitutional: Negative for fever. Respiratory: Positive for shortness of breath. Cardiovascular: Negative for chest pain. Gastrointestinal: Negative for abdominal pain. Neurological: Positive for syncope and light-headedness. PAST MEDICAL HISTORY Past Medical History: Diagnosis Date Anemia Arthritis Cancer (CMS/HCC) (HCC) Skin arm and leg GERD (gastroesophageal reflux disease) Gout Hypertension Psoriasis SOB (shortness of breath) Thyroid disease Vertigo SURGICAL HISTORY Past Surgical History: Procedure Laterality Date AORTIC VALVE REPLACEMENT 2018 BLADDER SUSPENSION 2010 w/mesh HERNIA REPAIR 4 times [place], 1979, 2007,2010, 2005 HIATAL HERNIA REPAIR 10/21/2016 lap hiatal hernia, lap [place], upper GI endoscopy, dr. beltran ach HYSTERECTOMY 1999 SKIN CANCER EXCISION SMALL INTESTINE SURGERY 1979 UPPER GASTROINTESTINAL ENDOSCOPY 07/28/2016 CURRENT MEDICATIONS Previous Medications FUROSEMIDE (LASIX) 20 MG TABLET Take 1 tablet (20 mg) by mouth daily. Do not start before September. IPRATROPIUM-ALBUTEROL (DUO-NEB) 0.5-2.5 MG/3 ML NEBULIZER SOLUTION Take 3 mL by nebulization 4 times daily as needed for shortness of breath. LEVOTHYROXINE (SYNTHROID, LEVOXYL) 125 MCG TABLET Take 125 mcg by mouth daily. LOSARTAN (COZAAR) 50 MG TABLET Take 25 mg by mouth daily. MELATONIN 5 MG TABLET Take 1 tablet (5 mg) by mouth Nightly as needed. METOPROLOL TARTRATE (LOPRESSOR) 25 MG TABLET 12.5 mg 2 times daily. PANTOPRAZOLE (PROTONIX) 40 MG EC TABLET Take 1 tablet (40 mg) by mouth daily (before lunch). Do notcrush, chew, or split. Do not start before September 12, 2022. ALLERGIES Levofloxacin FAMILY HISTORY Family History Problem Relation Name Age of Onset Hypertension Mother Colon cancer Neg Hx Hypertension Father SOCIAL HISTORY Social History Socioeconomic History Marital status: Tobacco Use Smoking status: Never Smokeless tobacco: Never Substance and Sexual Activity Alcohol use: No Drug use: No Social Determinants of Health Financial Resource Strain: Medium Risk (09/09/2022) Overall Financial Resource Strain (CARDIA) Difficulty of Paying Living Expenses: Somewhat hard Food Insecurity: No Food Insecurity (09/09/2022) Hunger Vital Sign Worried About Running Out of Food in the Last Year: Never true Ran Out of Food in the Last Year: Never true Transportation Needs: Unmet Transportation Needs (09/09/2022) PRAPARE - Transportation Lack of Transportation (Medical): Yes Lack of Transportation (Non-Medical): Yes Physical Activity: Inactive (09/09/2022) Exercise Vital Sign Days of Exercise per Week: 0 days Minutes of Exercise per Session: 0 min Stress: Stress Concern Present (09/09/2022) [employer] - Occupational Stress Questionnaire Feeling of Stress : Rather much Social Connections: Moderately Integrated (09/09/2022) Social Connection and Isolation Panel [NHANES] Frequency of Communication with Friends and Family: Twice a week Frequency of Social Gatherings with Friends and Family: Once a week Attends Alevism Services: 1 to 4 times per year Active Member of Clubs or Organizations: No Attends Club or Organization Meetings: 1 to 4 times per year Marital Status: Intimate Partner Violence: Not At Risk (09/09/2022) Humiliation, Afraid, Rape, and Kick questionnaire Fear of Current or Ex-Partner: No Emotionally Abused: No Physically Abused: No Sexually Abused: No Housing Stability: High Risk (09/09/2022) Housing Stability Vital Sign Unable to Pay for Housing in the Last Year: No Number of Places Lived in the Last Year: 1 Unstable Housing in the Last Year: Yes SCREENINGS PHYSICAL EXAM ED Triage Vitals [12/23/221910] Temp Heart Rate Resp BP 36.5 C (97.7 F) 74 16 (!) 144/79 SpO2 Temp Source Heart Rate Source Patient Position 97 % Oral Monitor Lying BP Location FiO2 (%) Right arm -- Physical Exam Constitutional: General: She is not in acute distress. HENT: Head: Normocephalic. Eyes: Conjunctiva/sclera: Conjunctivae normal. Cardiovascular: Rate and Rhythm: Normal rate and regular rhythm. Pulmonary: Effort: Pulmonary effort is normal. Abdominal: General: Abdomen is flat. Tenderness: There is no abdominal tenderness. Musculoskeletal: General: No deformity. Skin: General: Skin is warm and dry. Psychiatric: Mood and Affect: Mood normal. DIAGNOSTIC RESULTS RADIOLOGY (Per Emergency Physician): Interpretation per the Radiologist below, if available at the time of this note: XR chest 1 view Final Result Bibasal atelectasis. Report Dictated on Electronically Signed By: Eddie Harris DO Electronically Signed Date/Time: 12/23/2022 8:20 PM EST LABS: Labs Reviewed NT PRO BNP - Abnormal Result Value NT PRO BNP 958 (*) BASIC METABOLIC PANEL - Abnormal SODIUM 135 POTASSIUM 4.5 CHLORIDE 99 CARBON DIOXIDE 26 UREA NITROGEN 24 (*) CREATININE 1.22 (*) GLUCOSE 135 (*) CALCIUM 8.9 ANION GAP 10 eGFR 43.0 (*) TROPONIN I - Abnormal TROPONIN I 0.044 (*) Narrative: Patients with high levels of Biotin oral intake (ie >5 mg/day) may have falsely decreased Troponin levels. CBC WITH AUTO DIFFERENTIAL - Abnormal Auto WBC 8.1 RBC 4.69 Hemoglobin 14.1 Hematocrit 43.1 MCV 91.9 MCH 30.1 MCHC 32.7 RDW 14.1 Platelets 158 MPV 11.6 Neutrophils Relative 66.2 Lymphocytes Relative 21.6 Monocytes Relative 9.7 Eosinophils Relative 1.4 Basophils Relative 0.6 Immature Grans % 0.5 (*) Neutrophils Absolute 5.4 Lymphocytes Absolute 1.8 Monocytes Absolute 0.8 Eosinophils Absolute 0.1 Basophils Absolute 0.1 Immature Grans Absolute 0.0 COMPLETE URINALYSIS - Abnormal Color, Urine Light Yellow Clarity, Urine Clear pH, Urine 6.0 Leukocytes, Urine 75 (*) Nitrite, Urine Negative Protein, Urine Negative Glucose, Urine Normal Bilirubin, Urine Negative Ketones, Urine Negative Urobilinogen, Urine Normal Blood, Urine Negative Volume, Urine 12 mL RBC, Urine 0-2 WBC, Urine 3-5 Squamous Epithelial, Urine 3-5 Bacteria, Urine Moderate (*) Mucus, Urine Few Amorphous Urates, Urine Few (*) WBC Clumps, Urine Few (*) SPECIFIC GRAVITY OF URINE (NUMERIC) 1.007 HEPATIC FUNCTION PANEL - Normal BILIRUBIN, TOTAL 0.4 BILIRUBIN, DIRECT 0.0 ALKALINE PHOSPHATASE 67 AST (SGOT) 25 ALT 22 ALBUMIN 4.2 TOTAL PROTEIN 7.2 COMPLETE URINALYSIS WITH REFLEX TO CULTURE Narrative: The following orders were created for panel order Urinalysis complete with reflex to Culture. Procedure Abnormality Status --------- ------ Complete Urinalysis[[id number]] Abnormal Final result Please view results for these tests on the individual orders. All other labs were within normal range or not returned as of this dictation. EMERGENCY DEPARTMENT COURSE and DIFFERENTIAL DIAGNOSIS/MDM: Vitals: Vitals: 12/23/221910 BP: (!) 144/79 BP Location: Right arm Patient Position: Lying Pulse: 74 Resp: 16 Temp: 36.5 C (97.7 F) TempSrc: Oral SpO2: 97% Weight: 96.2 kg (212 lb) Height: 1.549 m (5' 1) Medications aspirin tablet 325 mg (325 mg Oral Given 12/23/222052) furosemide (Lasix) injection 40 mg (40 mg IntraVENous Given 12/23/222052) MDM The patient presented with chief complaint of lightheadedness. See history and physical exam above.The patient appears well at this time no acute distress, vitals are stable. Differential diagnosis includes but is not limited to anemia, electrolyte abnormality, HUY, acute heart failure, pneumonia,UTI. To aid in management, I performed an independent interpretation of all laboratory tests, EKG, imaging, and other diagnostics ordered. EKG reveals normal sinus rhythm with no evidence of acute ischemia. This appears similar to her previous EKG. Chest x-ray is negative for focal infiltrate as interpreted by me, see radiologist reportfor details. Labs significant for elevated BNP and elevated troponin. The patient has dyspnea on exertion and bilateral lower extremity swelling this is likely acute decompensated heart failure. The patient was given oral aspirin and Lasix 40 mg IV. Other blood counts, x-rays, and kidney function are unremarkable. The patient was updated on the results and questions were answered. She reports feeling continually lightheaded. The patient will be admitted for further telemetry monitoring and evaluation. I discussed the case with admitting physician, Dr. Uribe, who was agreeable. Patient's care was impacted by Heart disease. I Marek Castano DO am the puller through of record. PROCEDURES: Unless otherwise noted below, none Procedures FINAL IMPRESSION 1. Acute decompensated heart failure (HCC) DISPOSITION Admit 12/23/2022 08:49:52 PM PATIENT REFERRED TO: No follow-up provider specified. DISCHARGE MEDICATIONS: New Prescriptions No medications on file (Comment: Please note this report has been produced using speech recognition software and may contain errors related to that system including errors in grammar, punctuation, and spelling, as well as words and phrases that may be inappropriate. If there are any questions or concerns please feel freeto contact the dictating provider for clarification.) Marek Castano DO (electronically signed) Emergency Medicine Provider Marek Castano DO 12/23/222114 [facility]08-05-2023 Miscellaneous Notes* Care Coordination - BERTA Xie - 09/12/2022 12:30 PM EDT S/W, Cloth [employer] [address] * Care Plan - Heather Shabazz RN - 09/12/2022 11:11 AM EDT Problem: Knowledge Deficit Goal: Patient/family/caregiver demonstrates understanding of disease process, treatment plan, medications, and discharge instructions Outcome: Progressing Problem: Potential for Compromised Skin Integrity Goal: Skin Integrity is Maintained or Improved Outcome: Progressing Goal: Nutritional status is improving Outcome: Progressing Problem: Urinary Incontinence Goal: Perineal skin integrity is maintained or improved Outcome: Progressing The patient is Moderately Stable - Low risk of patient condition declining or worsening The patient's goals for the shift include rest The clinical goals for the shift include keep patient free from injury and hemodynamically stable Over the shift, the patient did not make progress toward the following goals. Barriers to progression include. Recommendations to address these barriers include. * Care Coordination - Macy Louise RN - 09/12/2022 9:25 AM EDT Ambulance form created and scheduled transport for 1200. Updated facility and Heather ERICKSON. Steven update patient and family. Number for report provided. * Care Coordination - Macy Louise RN - 09/12/2022 8:22 AM EDT Images from the original note were not included. CARE COORDINATION DAILY NOTE/UPDATE Medical Plan: medically stable for discharge Discharge Plan: [facility] Discharge Barriers: none This TCC was tasked to follow this patient through the weekend assisting with discharge planning. Chart was reviewed. Voicemail received from [facility] [place], they are able to accept and have a bed. Active discharge order noted. RADHA TCC portion completed. Request sent to Heather ERICKSON to complete COCand check for need for an ambulance form. Request sent to to complete [id number]. Discharge documents including Discharge Summary, After Visit Summary, MAR, LABS, and Vitals [facility]. Expected discharge, Discharge Milestones, and Rapid Rounding reviewed and updated. TCC will continue to follow. Discharge Milestones and Delays Expected Date/Time: 09/12/2022 Disposition: Half-Way Facility Transport status: No current request Discharge Milestones Completed Place discharge order Complete med reconciliation Case mgmt discharge readiness Clinical Stability Diagnsotic Workup Expected Discharge History Expected Date/Time Set By Reviewed At 09/12/2022 Macy Louise RN 09/12/2022 8:41 AM 09/11/2022 Duran Laboy, 09/11/2022 1:27 PM IV atb, placement 09/12/2022 Nerissa Tineo RN 09/11/2022 8:20 AM 09/11/2022 Nerissa Tineo RN 09/10/2022 8:08 AM IV lasix bid and IV rocephin,echo,PT/OT 09/11/2022 Nerissa Tineo RN 09/09/2022 8:03 AM IV lasix bid and IV rocephin 09/09/2022 Nerissa Tineo RN 09/09/2022 8:02 AM pending phys 09/11/2022 Attila Mcmahon MD 09/08/2022 10:37 PM 09/11/2022 Attila Mcmahon MD 09/08/2022 8:38 PM Length of Stay (Days): 4 GMLOS: 3.9 * Care Coordination - Letty Burch - 09/11/2022 2:24 PM EDT Referral placed to [facility] [place] via [facility] per TCC request. Await review and response regarding ability to accept. TCC notified. * Care Coordination - Unknown Case Management - 09/11/2022 2:22 PM EDT Patient Choice Patient Name: GONZALO LEI Date of : 1935 All Providers Sent Referral Name: [facility] - SNF & Acute Rehab Address: [address] [place] [address] [address]: [facility] Phone: [phone] Address: [address] [place] [address] * Care Coordination - Nerissa Tineo RN - 09/11/2022 1:54 PM EDT Images from the original note were not included. Care Management Progress Note Medically stable for discharge. PT recommending SNF. Met with pt- pt agreeable but did not know thename of facility she wanted-asked to call her brother for assistance. Called and spoke with Florian- facility [facility]. Admin assist to place referral. If accepted, pt will not need auth.Awaiting response. Discharge Milestones and Delays Expected Date/Time: 09/11/2022 Disposition: Half-Way Facility Transport status: No current request Discharge Milestones Place discharge order Complete med reconciliation Case mgmt discharge readiness Clinical Stability Diagnsotic Workup Expected Discharge History Expected Date/Time Set By Reviewed At 09/11/2022 Duran Laboy, DO 09/11/2022 1:27 PM IV atb, placement 09/12/2022 Nerissa Tineo RN 09/11/2022 8:20 AM 09/11/2022 Nerissa Tineo RN 09/10/2022 8:08 AM IV lasix bid and IV rocephin,echo,PT/OT 09/11/2022 Nerissa Tineo RN 09/09/2022 8:03 AM IV lasix bid and IV rocephin 09/09/2022 Nerissa Tineo RN 09/09/2022 8:02 AM pending phys 09/11/2022 Attila Mcmahon MD 09/08/2022 10:37 PM 09/11/2022 Attila Mcmahon MD 09/08/2022 8:38 PM Length of Stay (Days): 3 GMLOS: 3.9 * Care Coordination - Letty Burch - 09/11/2022 11:27 AM EDT Referral placed to [facility] via [facility] per TCC request. Await review and response regarding ability to accept. TCC notified. * Care Coordination - Jodi Torres RN - 09/11/2022 10:50 AM EDT HF registered client associate: Chart reviewed. Pt admitted with acute on chronic HFimpEF (LVEF documented to be 40% in office note from Dr. Penaloza in 2017 --> 61% on repeat echo in 2018 --> 58% this admission). Pt also with recent hospitalization at [facility] for ADHF. Treated with IV lasix by primary and transitioned to oral diuretic on 09/11. Met with pt to discuss Cardiology follow up. Pt reports f ollowing with Dr. Luna in [place]. Contacted office to schedule. The soonest available appt is on 10/01 at 1:00PM with YOLY Ornelas. Pt also has an annual visit with Dr. Luna on 11/05 at 3:00PM. Met with pt to notify of appts and review HF zones tool. Pt not able to go on 10/01 because she is due to get an injection in her eye which has already been rescheduled. Appt rescheduled for 10/02 at 9:30AM with YOLY Ornelas. Appts added to AVS along with instructions for the facility to contact Cardiology for signs or symptoms of fluid overload. * Home Care - Annia Hebert RN - 09/11/2022 10:35 AM EDT Patient is currently active with [facility]. The patient is currently receiving PT, OT, MEDICAL OFFICE SECRETARY services through the agency. Farm Management Supervisor to continue to follow. * Home Care - Annia Hebert RN - 09/11/2022 10:18 AM EDT Spoke to Dr Smart's office, per Jaki, pt is active with [facility]. Referral sent in care port to confirm. * Home Care - Nannette Brewer RN - 09/09/2022 2:46 PM EDT HCL lm with patient pcp to see if they are signing c orders for this patient and with whom. Awaiting cb. Per patient she was supposed to be opened with [facility] which is not showing as a hhc agency in [facility] has never heard of them, however patient did admit being at [facility] SNF recently. Notified Tcc Nerissa. Will continue to follow for needs. * Care Coordination - Nerissa Tineo RN - 09/09/2022 10:17 AM EDT Care Managment Initial Assessment Date: 09/09/2022 Patient Name: Gonzalo Lei : 1935 Patient Information Source of Information: Patient Cognition/Language: WFL - Within Functional Limits Permission given to speak with patient sales representative/caregiver as indicated: Confirmation of Payer with patient/family: Yes Payer Name: medicare [place]: No Confirmation of Primary Care Physician: Confirmed PCP Name: Divina Smart in [facility] Seen in last 2 years?: Yes Primary Caregiver: Self If assistance needed, confirmed caregiver ready, willing and able to care for patient at discharge: Confirmed with: Living Arrangements Current Residence: Apartment Number of Floors 1 Number of Entry Steps: (level entry) Bed/Bath Levels: Both first floor Facility: Facility Name: Plan to Return: Lives with: Alone Support Systems: Family members, Home care staff, Friends/neighbors Activities of Daily Living Ambulation: Independent (uses walker outside) Bathing/Dressing: Assistance Elimination/Continence/Toileting: Independent Feeding: Independent Who Assists with Activities of Daily Living: HC Instrumental Activities of Daily Living Prescription Coverage: Yes [facility] Medication Management: Independent Transportation/Shopping: Assistance Provider Transportation/Shopping Assistance Provider Name: granddtr or brother Transportation Mode: Car Needs Assistance with Transportation at Discharge: No Meal Preparation: Assistance Provider Laundry/Cleaning: Assistance Provider Finances/Bill Paying: Independent Communication: Independent Types of Care Services/Equipment Utilized Care Services: Skilled Home Health Services Care Services Provider Name: confirming company Dialysis Type: NA Durable Medical Equipment: Cane, Walker Patient's Goal/Discharge Plan Patient expects to be discharged to: home Discharge Planning Actions: Continue to follow Patient's Choice Rights and [employer] and Collaborative Relationships Disclosed as Indicated for Post-Acute Care: NA Interdisciplinary Team Engagement: Home Health Care Social Work Referral for: Additional Information: Pt adm for tx/evaluation of acute pulm edema/pyelonephritis and hypoxia. Currently on 1L- weaning as able as pt does not wear at baseline. Receiving IV rocephin and lasix bid. Echo ordered. Met with pt- introduced self and role. Pt from home alone and mostly indep. Pt states that she has HC services- possibly with [facility]- Emily KRISHNAMURTHY following to confirm and for continuity of care. Pt's brother and granddaughter help with transportation, shopping, cooking and ADLs prn. Plan for home on discharge. Nerissa Tineo RN * Care Plan - Marlys Shah RN - 09/09/2022 3:03 AM EDT Problem: Knowledge Deficit Goal: Patient/family/caregiver demonstrates understanding of disease process, treatment plan, medications, and discharge instructions Outcome: Progressing Problem: Potential for Compromised Skin Integrity Goal: Skin Integrity is Maintained or Improved Outcome: Progressing Goal: Nutritional status is improving Outcome: Progressing Problem: Urinary Incontinence Goal: Perineal skin integrity is maintained or improved Outcome: Progressing The patient is Moderately Stable - Low risk of patient condition declining or worsening The patient's goals for the shift include rest The clinical goals for the shift include keep patient safe Over the shift, the patient did not make progress toward the following goals. Barriers to progression include anxiety. Recommendations to address these barriers include emotional support. documented in this [facility]08-05-2023 Note* Care Coordination - BERTA Xie - 09/12/2022 12:30 PM EDT S/W, Cloth Trimmer Hand [address] [id number]* Care Coordination - BERTA Xie - 09/12/2022 12:30 PM EDT S/W, Cloth Trimmer Hand [address] [id number] Hospital course Narrative* Duran Laboy DO - 09/12/2022 12:13 PM EDT Hospitalist Discharge Summary - [facility] Acute Care [facility] ([facility] Gonzalo Lei : 1935 Admit date: 09/08/2022 Discharge date: 09/12/2022 Admitting Physician: Tariq Jones MD Primary Care Physician: DIVINA SMART DO Hospital Course: Improved. Gonzalo is an 86 year old female with PMH of A Fib (no AC), s/p AVR (2018), Diastolic CHF, COPD, HTN, Hypothyroidism, and GERD who presented with Chief Complaint of SOB. Also found to have LE edema.She required supplemental O2 in ED. Na 133, Cr 1.31, BNP 4K, WBC 8. COVID negative. UA showed likely UTI and Urine culture obtained. Started on IV Rocephin. CXR showed possibly mild pulmonary edema. CT abd/pelvis showed likely cystitis, likely pyelonephritis, and extensive atrophy and cortical scarring of the left kidney may be related to prior infections or vascular compromise. Admitted for Pyelonephritis and CHF exacerbation. IV Lasix for CHF exacerbation, then transitioned to oral diuretics.ECHO 09/10/2022 showed EF 58%. Urine culture finalized E Coli sensitive to all cephalosporins. Medically stable for discharge to complete Omnicef 09/14. Discharge Diagnoses: #Pyelonephritis #UTI -Urine culture finalized E Coli sensitive to all cephalosporins -Initially given IV Rocephin, then transitioned to Omnicef -Last dose on 09/14 per infection stewardship recs #Acute hypoxic respiratory failure, improving #Acute on chronic diastolic CHF, improving -RR 34 and required supplemental O2 in ED -Likely 2/2 underlying infection, possible CHF exacerbation -Had just been admitted recently to [facility] for CHF exacerbation -Had been taken off her Lasix due to high potassium -ECHO 09/10/2022 showed EF 58% -Received IV Lasix initially, then transitioned to 40 mg oral daily -Lasix reduced to 20 mg daily, repeat kidney function in 1 week #HUY vs. CKD 3, stable -Unsure of baseline, Cr 0.9 in 2018 -Cr 1.31 on admission -Likely has underlying CKD -Lasix oral #HTN #A Fib -Not on anticoagulation -Continue home Losartan and Lopressor #Hyponatremia, mild -Trend #DVT Prophylaxis -Lovenox #Body mass index is 40.66 kg/m ., BMI Classification: Morbidly Obese (>40.0) Adult diet Regular; Low Sodium (2 gm) Vitals: BP (!) 144/77 (BP Location: Left arm, Patient Position: Lying) Pulse 60 Temp 36.3 C (97.3 F) (Temporal) Resp 16 Ht 5' 1 (1.549 m) Wt 215 lb 3.2 oz (97.6 kg) SpO2 94% BMI 40.66 kg/m Pulse Ox: SpO2 Av.2 % Min: 92 % Max: 94 % Supplemental O2: O2 Flow Rate (L/min): 1 L/min Internal Course: agreeable to discharge GENERAL: comfortable without complaints CARDIOVASCULAR: RRR no murmurs RESPIRATORY: clear without wheezes ABDOMEN: non-distended, soft EXTREMITIES: moving all spontaneously Recent Labs 09/10/22 0009 09/11/22 0121 09/12/22 0251 WBC 7.4 7.1 7.4 HGB 13.2 13.6 13.5 PLT 156 192 200 Recent Labs 09/10/22 0009 09/11/22 0121 09/12/22 0251 NA 136 135 132* K 3.9 4.2 4.1 CL 97* 95* 95* CO2 32* 34* 31* BUN 33* 40* 52* CREATININE 1.33* 1.35* 1.49* GLUCOSE 135* 137* 124* No results for input(s): AST, ALT, BILITOT, ALKPHOS in the last 72 hours. No lab exists for component: ALB No results found for: TRIG, HDL, LDLCALC, CHOL No results found for: PHART, PO2ART, CPT0NGQ No results for input(s): INR in the last 72 hours. No results for input(s): DDIMER in the last 72 hours. No results found for: HGBA1C No results found for: TSH Urine Culture: Results for orders placed or performed during the hospital encounter of 09/08/22 Urine culture Specimen: Urine, Clean Catch Result Value Ref Range Urine Culture >100,000 CFU/mL Escherichia coli (A) Susceptibility Escherichia coli - BROTH MICRODILUTION Amoxicillin / Clavulanate 4 Susceptible ug/ml Ampicillin >=32 Resistant ug/ml Ampicillin / Sulbactam 16 Intermediate ug/ml Aztreonam <=1 Susceptible ug/ml Cefazolin <=4 Susceptible ug/ml Cefepime <=1 Susceptible ug/ml Ceftriaxone <=1 Susceptible ug/ml Ciprofloxacin <=0.25 Susceptible ug/ml Gentamicin <=1 Susceptible ug/ml Meropenem <=0.25 Susceptible ug/ml Nitrofurantoin <=16 Susceptible ug/ml Piperacillin / Tazobactam <=4 Susceptible ug/ml Trimethoprim / Sulfamethoxazole >=320 Resistant ug/ml Imaging: CT abdomen pelvis w contrast Result Date: 09/08/2022 Patient Name: GONZALO LEI : 1935 [id number] Exam Date/Time: 09/08/2022 19:46 Procedure: CT ABDOMEN PELVIS W CONTRAST Ordering Provider: MCMAHON DOUGLAS Reason For Exam: nausea vomiting, shortness of breath. SBO, ileus, colitis? CLINICAL HISTORY: nausea vomiting, shortness of breath. SBO, ileus, colitis? COMPARISON: None Technique: Axial CT images were obtained of the abdomen and pelvis after the uneventful IV administration of 75 mL of Isovue 370 IV contrast. Images were reformatted in coronal and sagittal projections. Dose reduction was employed with automated exposure control. FINDINGS: Chest base: Mild bibasilar atelectasis in the lungs. Extra vascular cardiac pacemaker leads. Median sternotomy wires. Liver/Biliary system: A few scattered subcentimeter hypodensities in the liver are too small to accurately characterize but likelycysts. The gallbladder is mildly distended with no wall thickening or CT evident cholelithiasis. Spleen: Not enlarged. Pancreas: Atrophic with no focal abnormalities. Adrenal glands: No significant abnormality. Kidneys: No hydronephrosis or urinary calculi. Extensive left renal cortical scarring and diffuse atrophy, particularly of the left upper pole. Urothelial thickening and hyperenhancement in the renal collecting system and ureter bilaterally. Mild patchy cortical hypoenhancement in the medial right upper kidney. Bowel: Postsurgical changes of the stomach with moderate hiatal hernia. Thebowel is of normal caliber throughout without evidence of wall thickening or obstruction. Cecum in the right upper quadrant of the abdomen with normal appearance of the appendix. Colonic diverticulosis with no evidence of acute diverticulitis. Mesentery/Intraperitoneum: No intraperitoneal free fluid or air is seen. Mesentery is normal in appearance. Lymph nodes: No lymphadenopathy Vasculature: The abdominal aorta is normal in caliber. Pelvic organs: Diffuse bladder wall thickening with mild surrounding fat stranding. Soft tissues and Osseous structures: No evidence of fracture. No suspicious o sseous lesions. Moderate multilevel degenerative changes of the lumbar spine. Diffuse bladder wall thickening and mild surrounding fat stranding suggestive of cystitis. There isurothelial thickening and hyperenhancement bilaterally in the kidneys and proximal ureters suggestive of ascending upper urinary tract infection. Patchy cortical hypoenhancement in the right upper kidney is also concerning for potential associated pyelonephritis. Extensive atrophy and cortical scarring of the left kidney may be related to prior infections or vascular compromise. Report Dictated on Electronically Signed By: Kei Guzman DR Electronically Signed Date/Time: 09/08/2022 8:17 PM EDT ECG 12 lead EKG shows irregularly-irregular rhythm, normal axis, normal AR interval, proonged QRS and QTC. Lotsof PVCs. No clear-cut STEMI but there are ST depressions in the inferior and lateral leads which are new. No LVH, no SVT. Previous EKG shows sinus bradycaria. Electronically Signed On 09-08-2022 18:55:35 EDT by Ender Atkins XR chest 1 view Result Date: 09/08/2022 Patient Name: GONZALO LEI : 1935 [id number] Exam Date/Time: 09/08/2022 18:43 Procedure: XR CHEST 1 VIEW Ordering Provider: MCMAHON DOUGLAS Reason For Exam: CHF. off lasix. rales in bilateral bases. CHF vs PNA EXAMINATION: Portable chest INDICATION: CHF. off lasix. rales in bilateral bases. CHF vs PNA FINDINGS: The exam is limited secondary toportable technique and large patient body habitus. Low lung volumes are present with mild interstitial prominence and/or mild vascular crowding. There is no focal consolidation, sizable pleural effusion or pneumothorax. The cardiac silhouette is enlarged with median sternotomy changes and cardiac valve repair. There is calcification of the aortic arch. Small osteophytes of the spine are present at multiple levels. Cardiomegaly with median sternotomy changes. Question mild pulmonary edema. Low lung volumes. Report Dictated on Electronically Signed By: Bárbara Vinson MD Electronically Signed Date/Time: 09/08/2022 6:45 PM EDT Consults: IP CONSULT TO HOSPITALIST IP CONSULT TO HEART FAILURE NURSE/COORDINATOR Discharge Medications: Medication List START taking these medications aluminum & magnesium hydroxide-simethicone 200-200-20 MG/5ML oral suspension Commonly known as: Mylanta Take 20 mL by mouth every 6 hours as needed for indigestion or heartburn for up to 10 days. Notes to patient: As Needed cefdinir 300 MG capsule Commonly known as: Omnicef Take 1 capsule (300 mg) by mouth 2 times daily for 9 doses. Last dose 8/8 AM Notes to patient: Take tonight 09/12/2022 furosemide 20 MG tablet Commonly known as: Lasix Start taking on: September 13, 2022 Notes to patient: Take tomorrow 09/13/2022 ipratropium-albuterol 0.5-2.5 mg/3 mL nebulizer solution Commonly known as: Duo-Neb Take 3 mL by nebulization 4 times daily as needed for shortness of breath. Notes to patient: As Needed melatonin 5 MG tablet Notes to patient: As Needed pantoprazole 40 MG EC tablet Commonly known as: ProtoNix Take 1 tablet (40 mg) by mouth daily (before lunch). Do not crush, chew, or split. Do not start before September 12, 2022. Notes to patient: Take tomorrow 09/13/2022 CONTINUE taking these medications levothyroxine 125 MCG tablet Commonly known as: Synthroid, Levoxyl Notes to patient: Take tomorrow 09/13/2022 losartan 50 MG tablet Commonly known as: Cozaar Notes to patient: Take tomorrow 09/13/2022 metoprolol tartrate 25 MG tablet Commonly known as: Lopressor Notes to patient: Take tomorrow 09/13/2022 Where to Get Your Medications These medications were sent to [address] [address] aluminum & magnesium hydroxide-simethicone 200-200-20 MG/5ML oral suspension cefdinir 300 MG capsule ipratropium-albuterol 0.5-2.5 mg/3 mL nebulizer solution pantoprazole 40 MG EC tablet Recommended Follow-up: GURVINDER Marie [address] [facility] [id number] Go on 10/02/2022 HEART FAILURE FOLLOW UP VISIT at 9:30AM Patient to bring most recent lab work and current medication list to all appointments! Hernan Luna [address] [facility] [id number] Follow up on 11/05/2022 ANNUAL CARDIOLOGY FOLLOW UP at 3:00PM. Patient to bring most recent lab work and current medication list to all appointments! Complexity of Follow up: [] Moderate Complexity: follow up within 7-14 calendar days (07158) [x] Severe Complexity: follow up within 7 calendar days (86849) Disposition: Patient discharged in stable condition. Greater than 31 minutes spent discharging the patient and coming up with patient discharge plan. Follow up with DIVINA SMART DO in 1-2 weeks. Signed: Duran Laboy DO 09/12/2022, 12:13 PM documented in this [facility]08-05-2023 Plan of care note* Care Plan - Heather Shabazz RN - 09/12/2022 11:11 AM EDT Problem: Knowledge Deficit Goal: Patient/family/caregiver demonstrates understanding of disease process, treatment plan, medications, and discharge instructions Outcome: Progressing Problem: Potential for Compromised Skin Integrity Goal: Skin Integrity is Maintained or Improved Outcome: Progressing Goal: Nutritional status is improving Outcome: Progressing Problem: Urinary Incontinence Goal: Perineal skin integrity is maintained or improved Outcome: Progressing The patient is Moderately Stable - Low risk of patient condition declining or worsening The patient's goals for the shift include rest The clinical goals for the shift include keep patient free from injury and hemodynamically stable Over the shift, the patient did not make progress toward the following goals. Barriers to progression include. Recommendations to address these barriers include. [id number] History of Present illness Narrative* Kimmy Fernando - 09/12/2022 11:08 AM EDT Occupational Therapy Facility/Department: [facility] Initial Evaluation NAME: Gonzalo Lei : 1935 Date of Service: 09/12/2022 Discharge Recommendations: Half-Way Facility Assessment REQUIRES OT FOLLOW-UP: Yes Performance deficits / Impairments: Decreased strength, Decreased endurance, Decreased ADL status, Decreased posture, Decreased functional mobility Assessment: OT eval completed. Pt is 86 year old female admitted due to SOB and bilateral leg edema. PMH of CHF, skin cancer, anemia. Pt was able to complete func transfers with min A. Pt ambulated with FWW with CGA and demonstrated good safety awareness. Pt demonstrated decreased endurance and shortness of breath while walking. Pt completed UB dressing, and grooming task while sitting in chair with min A. Pt is unsafe to return home because of her required assist level and she lives alone. Recommend SNF. Prognosis: Good Decision Making: Medium Complexity Activity Tolerance Activity Tolerance: Patient Tolerated treatment well Patient Diagnosis(es): The primary encounter diagnosis was Dyspnea, unspecified type. Diagnoses of Hypoxia, Leg edema, Acute on chronic congestive heart failure, unspecified heart failure type (HCC),Acute pulmonary edema (HCC), Pyelonephritis, Diastolic congestive heart failure, unspecified HF chronicity (HCC), and Acute on chronic diastolic (congestive) heart failure (HCC) were also pertinent to this visit. has a past medical history of Anemia, Arthritis, Cancer (CMS/HCC) (HCC), GERD (gastroesophageal reflux disease), Gout, Hypertension, Psoriasis, SOB (shortness of breath), Thyroid disease, and Vertigo. has a past surgical history that includes Bladder suspension (2010); Hernia repair; Small intestinesurgery (1979); Hiatal hernia repair (10/21/2016); Skin cancer excision; Upper gastrointestinal endoscopy (07/28/2016); Hysterectomy (1998); and Aortic valve replacement (2017). Restrictions Restrictions/Precautions Restrictions/Precautions: General Precautions, Fall Risk Required Braces or Orthoses?: No Position Activity Restriction Other position/activity restrictions: purewick Vision/Hearing Vision: Within Functional Limits Hearing: Functional/adequate for paticipation in therapy Cognition/Orientation Overall Cognitive Status: WFL Overall Orientation Status: Within Functional Limits Orientation Level: Oriented X4 Subjective General Chart Reviewed: Yes Patient Assessed for Rehabilitation Services: Yes Family / Caregiver Present: No Diagnosis: Bilateral leg edema, SOB, UTI Subjective Subjective: Pt agreeable to OT and eager to walk Patient Stated Goal: to get her hair cut Social/Functional History Social/Functional History Lives With: Alone Type of Home: Apartment Home Layout: One level Home Access: Level entry Bathroom Shower/Tub: Tub/Shower unit Bathroom Toilet: Handicap height Bathroom Equipment: Grab bars in shower, Grab bars around toilet Home Equipment: Rolling walker, Quad cane Receives Help From: Family, Neighbor ADL Assistance: Independent Homemaking Assistance: Independent Ambulation Assistance: Independent With device?: Yes (only uses walker when outside) Transfer Assistance: Independent Occupation: Retired Objective Observation/Palpation Posture: Fair Balance Sitting Balance: Modified independent Standing Balance: Stand by assistance Functional Mobility Functional - Mobility Device: Rolling Walker Assist Level: Contact guard assistance Functional Mobility Comments: Pt ambulated to doorway of room then back to chair with CGA and FWW ADL Grooming: Minimal assistance, Verbal cueing, Increased time to complete (Pt combed hair while seated in chair. Pt able to comb with mod I after set up, however pt had knots in her hair so her arms became fatigued after a few minutes. Required assist from OT to finish combing hair) UE Dressing: Minimal assistance, Verbal cueing (Pt able to doff gown mod I. Required min A for donning gown and verbal cueing.) Coordination Movements Are Fluid And Coordinated: No Coordination and Movement Description: Gross motor impairments, Decreased speed Bed mobility Comment: unable to assess, pt in chair upon arrival and back in chair at completion of session Transfers Sit to stand: Minimal assistance Stand to sit: Minimal assistance Transfer Comments: Pt completed func transfers with verbal cueing for proper hand placement Perception Overall Perceptual Status: WFL LUE AROM (degrees) LUE AROM : WFL Left Hand AROM (degrees) Left Hand AROM: WFL RUE AROM (degrees) RUE AROM : WFL Right Hand AROM (degrees) Right Hand AROM: WFL LUE Strength Gross LUE Strength: Exceptions to WFL L Shoulder Flex: 4-/5 L Elbow Flex: 4-/5 L Elbow Ext: 4-/5 L Hand General: 4-/5 RUE Strength Gross RUE Strength: Exceptions to WFL R Shoulder Flex: 4-/5 R Elbow Flex: 4-/5 R Elbow Ext: 4-/5 R Hand General: 4-/5 Plan Times per Week: 3-5 Plan Weeks: 4 Current Treatment Recommendations: Strengthening, Functional Mobility Training, Gait Training, Patient/Caregiver Education & Training, Positioning, Endurance Training, Equipment Evaluation, Education, & procurement, Self-Care / ADL, Safety Education & Training, Balance Training Safety Safety Devices in place: Yes Type of devices: All fall risk precautions in place, Left in chair, Gait belt, Call light within reach, No alarms engaged upon entry into room Outcomes Score AM-PAC Score AM-PAC Inpatient Daily Activity Raw Score: 17 ADL Inpatient [facility] G-Code Modifier: CK Goals Encounter Problems Encounter Problems (Active) Balance Patient will maintain dynamic standing balance for 5 minutes with supervision in order to demonstrate decreased risk of falling. Start: 09/12/22 Expected End: 10/10/22 Bathing Patient will utilize adaptive techniques to bathe body with supervision Start: 09/12/22 Expected End: 10/10/22 Dressings Lower Extremities Patient will dress lower body with AE and mod I Start: 09/12/22 Expected End: 10/10/22 Grooming Patient will complete daily grooming tasks while standing at sink with less than 3 rest breaks withmod I Start: 09/12/22 Expected End: 10/10/22 Mobility Patient will complete item retrieval with modified independence Start: 09/12/22 Expected End: 10/10/22 Education Education Given To: Patient Education Provided: OT role, Plan of care, Discharge recommendations, Transfer training Education Method: Verbal Barriers to Learning: None Education Outcome: Demonstrated understanding Therapy Time Individual Co-treatment Time In 0805 Time Out 0825 Minutes 20 Patient's Occupational Therapy Plan of Care supervision is transferred to [facility] Occupational Therapist. Goals and/or treatment plan was established in collaboration with patient/family/other representatives. Kimmy Fernando S/OT * Duran Laboy DO - 09/12/2022 9:11 AM EDT Hospitalist Progress Note - [facility] Acute Care [facility] ([facility]) 09/12/2022 9:11 AM Subjective and Objective: Admit Date: 09/08/2022 PCP: DIVINA SMART DO Chief Complaint Patient presents with Shortness of Breath Adult diet Regular; Low Sodium (2 gm) I/O last 3 completed shifts: In: 150 (1.5 mL/kg) [P.O.:150] Out: 1250 (12.8 mL/kg) [Urine:1250 (0.4 mL/kg/hr)] Weight: 97.6 kg @IODETAILS@ @[id number]@ Medications: cefdinir, 300 mg, Oral, BID enoxaparin, 30 mg, SubCUTAneous, 2 times per day furosemide, 40 mg, Oral, Daily levothyroxine, 125 mcg, Oral, Daily losartan, 25 mg, Oral, Daily metoprolol tartrate, 12.5 mg, Oral, BID pantoprazole, 40 mg, Oral, Daily before lunch Recent Labs 09/10/22 0009 09/11/22 0121 09/12/22 0251 WBC 7.4 7.1 7.4 HGB 13.2 13.6 13.5 PLT 156 192 200 Recent Labs 09/10/22 0009 09/11/22 0121 09/12/22 0251 NA 136 135 132* K 3.9 4.2 4.1 CL 97* 95* 95* CO2 32* 34* 31* BUN 33* 40* 52* CREATININE 1.33* 1.35* 1.49* GLUCOSE 135* 137* 124* No results for input(s): AST, ALT, BILITOT, ALKPHOS in the last 72 hours. No lab exists for component: ALB No results found for: TRIG, HDL, LDLCALC, CHOL No results found for: PHART, PO2ART, [id number] No results for input(s): INR in the last 72 hours. No results for input(s): CKTOTAL, CKMB, TROPONINI in the last 72 hours. No results for input(s): DDIMER in the last 72 hours. No results found for: HGBA1C No results found for: TSH Urine Culture: Results for orders placed or performed during the hospital encounter of 09/08/22 Urine culture Specimen: Urine, Clean Catch Result Value Ref Range Urine Culture >100,000 CFU/mL Escherichia coli (A) Susceptibility Escherichia coli - BR[facility] [employer]OD[employer] Amoxicillin / Clavulanate 4 Susceptible ug/ml Ampicillin >=32 Resistant ug/ml Ampicillin / Sulbactam 16 Intermediate ug/ml Aztreonam <=1 Susceptible ug/ml Cefazolin <=4 Susceptible ug/ml Cefepime <=1 Susceptible ug/ml Ceftriaxone <=1 Susceptible ug/ml Ciprofloxacin <=0.25 Susceptible ug/ml Gentamicin <=1 Susceptible ug/ml Meropenem <=0.25 Susceptible ug/ml Nitrofurantoin <=16 Susceptible ug/ml Piperacillin / Tazobactam <=4 Susceptible ug/ml Trimethoprim / Sulfamethoxazole >=320 Resistant ug/ml Objective: Vitals: BP (!) 144/77 (BP Location: Left arm, Patient Position: Lying) Pulse 60 Temp 36.3 C (97.3 F) (Temporal) Resp 16 Ht 5' 1 (1.549 m) Wt 215 lb 3.2 oz (97.6 kg) SpO2 94% BMI 40.66 kg/m Pulse Ox: SpO2 Av.2 % Min: 92 % Max: 94 % Supplemental O2: Internal Course: agreeable to discharge GENERAL: comfortable without complaints CARDIOVASCULAR: RRR no murmurs RESPIRATORY: clear without wheezes ABDOMEN: non-distended, soft EXTREMITIES: moving all spontaneously CHRONIC ANATOMY/TUBES/LINES: N/A Running Summary, Assessment, and Plan Gonzalo is an 86 year old female with PMH of A Fib (no AC), s/p AVR (2018), Diastolic CHF, COPD, HTN, Hypothyroidism, and GERD who presented with Chief Complaint of SOB. Also found to have LE edema.She required supplemental O2 in ED. Na 133, Cr 1.31, BNP 4K, WBC 8. COVID negative. UA showed likely UTI and Urine culture obtained. Started on IV Rocephin. CXR showed possibly mild pulmonary edema. CT abd/pelvis showed likely cystitis, likely pyelonephritis, and extensive atrophy and cortical scarring of the left kidney may be related to prior infections or vascular compromise. Admitted for Pyelonephritis and CHF exacerbation. IV Lasix then transitioned to oral diuretics. ECHO 09/10/2022 showed EF 58%. Urine culture finalized E Coli sensitive to all cephalosporins. #Pyelonephritis #UTI -Urine culture finalized E Coli sensitive to all cephalosporins -Initially given IV Rocephin, then transitioned to Omnicef -Last dose on 09/14 per infection stewardship recs #Acute hypoxic respiratory failure, improving #Acute on chronic diastolic CHF, improving -RR 34 and required supplemental O2 in ED -Likely 2/2 underlying infection, possible CHF exacerbation -Had just been admitted recently to [facility] for CHF exacerbation -Had been taken off her Lasix due to high potassium -ECHO 09/10/2022 showed EF 58% -Received IV Lasix initially, then transitioned to 40 mg oral daily -Lasix reduced to 20 mg daily, repeat kidney function in 1 week #HUY vs. CKD 3, stable -Unsure of baseline, Cr 0.9 in 2018 -Cr 1.31 on admission -Likely has underlying CKD -Lasix oral #HTN #A Fib -Not on anticoagulation -Continue home Losartan and Lopressor #Hyponatremia, mild -Trend #DVT Prophylaxis -Lovenox #Disposition: home with [facility] #Barriers to discharge: medically stable for DC Advance Directive: DNR CCA/DNI Duran Laboy DO Rounding Hospitalist Time Spent: 41 minutes Has at least of one of these; Number and Complexity of Problems Addressed at the Encounter: -1 or more chronic illnesses with exacerbation, progression, or side effects of treatment -2 or more stable, chronic illnesses -1 acute illness with systemic symptoms -1 acute, complicated injury Risk of Complications and/or Morbidity or Mortality of Patient Management: -Prescription drug management * Duran Laboy DO - 09/11/2022 9:11 AM EDT Hospitalist Progress Note - [facility] ([facility]) 09/11/2022 9:11 AM Subjective and Objective: Admit Date: 09/08/2022 PCP: DIVINA SMART DO Chief Complaint Patient presents with Shortness of Breath Adult diet Regular; Low Sodium (2 gm) I/O last 3 completed shifts: In: 150 (1.5 mL/kg) [P.O.:150] Out: 850 (8.6 mL/kg) [Urine:850 (0.2 mL/kg/hr)] Weight: 98.3 kg @IODETAILS@ @[id number]@ Medications: cefTRIAXone, 2,000 mg, IntraVENous, q24h enoxaparin, 30 mg, SubCUTAneous, 2 times per day furosemide, 40 mg, Oral, Daily levothyroxine, 125 mcg, Oral, Daily losartan, 25 mg, Oral, Daily metoprolol tartrate, 12.5 mg, Oral, BID pantoprazole, 40 mg, Oral, Daily before lunch Recent Labs 09/09/22 0033 09/10/22 0009 09/11/22 0121 WBC 8.5 7.4 7.1 HGB 13.6 13.2 13.6 PLT 140 156 192 Recent Labs 09/09/22 0033 09/10/22 0009 09/11/22 0121 NA 134* 136 135 K 4.1 3.9 4.2 CL 95* 97* 95* CO2 31* 32* 34* BUN 25* 33* 40* CREATININE 1.28* 1.33* 1.35* GLUCOSE 133* 135* 137* Recent Labs 09/08/22 1846 AST 27 ALT 21 BILITOT 0.5 ALKPHOS 83 Lab Results Component Value Date TRIG 129 09/09/2022 HDL 27 (L) 09/09/2022 LDLCALC 86 09/09/2022 CHOL 139 09/09/2022 No results found for: PHART, PO2ART, MLJ1CBC No results for input(s): INR in the last 72 hours. Recent Labs 09/08/22 1846 TROPONINI 0.018 No results for input(s): DDIMER in the last 72 hours. No results found for: HGBA1C No results found for: TSH Urine Culture: Results for orders placed or performed during the hospital encounter of 09/08/22 Urine culture Specimen: Urine, Clean Catch Result Value Ref Range Urine Culture >100,000 CFU/mL Escherichia coli (A) Objective: Vitals: BP 125/74 (BP Location: Left arm, Patient Position: Sitting) Pulse 81 Temp (!) 35.7 C (96.3 F) (Temporal) Resp 17 Ht 5' 1 (1.549 m) Wt 216 lb 12.8 oz (98.3 kg) Comment: standing SpO2 93% BMI 40.96 kg/m Pulse Ox: SpO2 Av.3 % Min: 92 % Max: 95 % Supplemental O2: Internal Course: pt initially declined placement but is not open to going to a [facility] GENERAL: alert and oriented, no acute distress, frail CARDIOVASCULAR: RRR, no murmurs RESPIRATORY: clear without wheezes ABDOMEN: soft, non tender EXTREMITIES: no edema CHRONIC ANATOMY/TUBES/LINES: N/A Running Summary, Assessment, and Plan Gonzalo is an 86 year old female with PMH of A Fib (no AC), s/p AVR (2018), Diastolic CHF, COPD, HTN, Hypothyroidism, and GERD who presented with Chief Complaint of SOB. Also found to have LE edema.She required supplemental O2 in ED. Na 133, Cr 1.31, BNP 4K, WBC 8. COVID negative. UA showed likely UTI and Urine culture obtained. Started on IV Rocephin. CXR showed possibly mild pulmonary edema. CT abd/pelvis showed likely cystitis, likely pyelonephritis, and extensive atrophy and cortical scarring of the left kidney may be related to prior infections or vascular compromise. Admitted for Pyelonephritis and CHF exacerbation. IV Lasix then transitioned to oral diuretics. ECHO 09/10/2022 showed EF 58%. Urine culture finalized E Coli sensitive to all cephalosporins. #Pyelonephritis #UTI -Urine culture finalized E Coli sensitive to all cephalosporins -IV Rocephin Day #4 (09/11), then transitioned to Omnicef -Last dose on 09/14 per infection stewardship recs #Acute hypoxic respiratory failure, improving #Acute on chronic diastolic CHF, improving -RR 34 and required supplemental O2 in ED -Likely 2/2 underlying infection, possible CHF exacerbation -Had just been admitted recently to [facility] for CHF exacerbation -Had been taken off her Lasix due to high potassium -ECHO 09/10/2022 showed EF 58% -Received IV Lasix initially, then transitioned to 40 mg oral daily #HUY vs. CKD 3, stable -Unsure of baseline, Cr 0.9 in 2018 -Cr 1.31 on admission -Likely has underlying CKD -Lasix oral -Trend #HTN #A Fib -Not on anticoagulation -Continue home Losartan and Lopressor #Hyponatremia, mild -Trend #DVT Prophylaxis -Lovenox #Disposition: home with [facility] #Barriers to discharge: medically stable for DC Advance Directive: DNR CCA/DNI Duran Laboy DO Rounding Hospitalist Time Spent: 40 minutes Has at least of one of these; Number and Complexity of Problems Addressed at the Encounter: -1 or more chronic illnesses with exacerbation, progression, or side effects of treatment -2 or more stable, chronic illnesses -1 acute illness with systemic symptoms -1 acute, complicated injury Risk of Complications and/or Morbidity or Mortality of Patient Management: -Prescription drug management * Astrid Mirza - 09/10/2022 11:18 AM EDT Nutrition rescreen completed. Chart reviewed. Patient to be monitored and followed by the diet nuclear fuel processing technician. Dietitian available upon request. CAMERON Tapia * Duran Laboy DO - 09/10/2022 9:38 AM EDT Hospitalist Progress Note - [facility] Acute Care [facility] ([facility]) 09/10/2022 9:38 AM Subjective and Objective: Admit Date: 09/08/2022 PCP: DIVINA SMART DO Chief Complaint Patient presents with Shortness of Breath Adult diet Regular; Low Sodium (2 gm) I/O last 3 completed shifts: In: - (0 mL/kg) Out: 1350 (13 mL/kg) [Urine:1350 (0.4 mL/kg/hr)] Weight: 103.6 kg @IODETAILS@ @[id number]@ Medications: cefTRIAXone, 2,000 mg, IntraVENous, q24h enoxaparin, 30 mg, SubCUTAneous, 2 times per day furosemide, 40 mg, IntraVENous, BID levothyroxine, 125 mcg, Oral, Daily losartan, 25 mg, Oral, Daily metoprolol tartrate, 12.5 mg, Oral, BID Recent Labs 09/08/22184509/09/223209/10/22 0009 WBC 7.9 8.5 7.4 HGB 13.5 13.6 13.2 PLT 157 140 156 Recent Labs 09/08/22184509/09/22 0033 09/10/22 0009 NA 133* 134* 136 K 4.7 4.1 3.9 CL 101 95* 97* CO2 24 31* 32* BUN 23* 25* 33* CREATININE 1.31* 1.28* 1.33* GLUCOSE 156* 133* 135* Recent Labs 09/08/221845 AST 27 ALT 21 BILITOT 0.5 ALKPHOS 83 Lab Results Component Value Date TRIG 129 09/09/2022 HDL 27 (L) 09/09/2022 LDLCALC 86 09/09/2022 CHOL 139 09/09/2022 No results found for: PHART, PO2ART, [id number] No results for input(s): INR in the last 72 hours. Recent Labs 09/08/221845 TROPONINI 0.018 No results for input(s): DDIMER in the last 72 hours. No results found for: HGBA1C No results found for: TSH Urine Culture: No results found for this or any previous visit. Objective: Vitals: BP 117/63 (BP Location: Right arm, Patient Position: Lying) Pulse 74 Temp 36.3 C (97.3 F) (Temporal) Resp (!) 28 Ht 5' 1 (1.549 m) Wt 228 lb 6.3 oz (104 kg) SpO2 92% BMI 43.16 kg/m Pulse Ox: SpO2 Av.7 % Min: 90 % Max: 94 % Supplemental O2: Internal Course: feeling improved today GENERAL: appears comfortable, frail CARDIOVASCULAR: regular RESPIRATORY: clear without rhonchi ABDOMEN: non distended EXTREMITIES: moving appropriately CHRONIC ANATOMY/TUBES/LINES: N/A Running Summary, Assessment, and Plan Gonzalo is an 86 year old female with PMH of A Fib (no AC), s/p AVR (2018), Diastolic CHF, COPD, HTN, Hypothyroidism, and GERD who presented with Chief Complaint of SOB. Also found to have LE edema.She required supplemental O2 in ED. Na 133, Cr 1.31, BNP 4K, WBC 8. COVID negative. UA showed likely UTI and Urine culture obtained. Started on IV Rocephin. CXR showed possibly mild pulmonary edema. CT abd/pelvis showed likely cystitis, likely pyelonephritis, and extensive atrophy and cortical scarring of the left kidney may be related to prior infections or vascular compromise. Admitted for Pyelonephritis and CHF exacerbation. IV Lasix then transitioned to oral diuretics. Urine culture pending #Pyelonephritis #UTI -Urine culture pending -IV Rocephin Day #3 (09/10) -Last dose on 09/14 per infection stewardship recs #Acute hypoxic respiratory failure, improving #Acute on chronic diastolic CHF, improving -RR 34 and required supplemental O2 in ED -Likely 2/2 underlying infection, possible CHF exacerbation -Had just been admitted recently to [facility] for CHF exacerbation -Had been taken off her Lasix due to high potassium -ECHO 09/10/2022 showed EF -Received IV Lasix initially, then transitioned to 40 mg oral daily #HUY vs. CKD 3, stable -Unsure of baseline, Cr 0.9 in 2018 -Cr 1.31 on admission -Likely has underlying CKD -Lasix oral -Trend #HTN #A Fib -Not on anticoagulation -Continue home Losartan and Lopressor #Hyponatremia, mild -Trend #DVT Prophylaxis -Lovenox #Disposition: PT/OT, may need SNF, Brother helps take care of her, he is also in his 80's #Barriers to discharge: Urine culture, symptom improvement Advance Directive: DNR CCA/DNI Duran Branden [place], DO Rounding Hospitalist Time Spent: 43 minutes Has at least of one of these; Number and Complexity of Problems Addressed at the Encounter: -1 or more chronic illnesses with exacerbation, progression, or side effects of treatment -2 or more stable, chronic illnesses -1 acute illness with systemic symptoms -1 acute, complicated injury Risk of Complications and/or Morbidity or Mortality of Patient Management: -Prescription drug management * Jessica Chloémi - 09/10/2022 8:35 AM EDT Physical Therapy Facility/Department: Physical Therapy Initial Evaluation NAME: Gonzalo Lei : 1935 Date of Service: 09/10/2022 Discharge Recommendations: [facility] (if home-going, pt requires 24/7 assist and home-health PT) PT Equipment Recommendations Equipment Needed: No Assessment Requires PT Follow-Up: Yes Assessment: Pt admitted to [facility] with Dyspnea, bilat LE edema, CHF, pulmonary edema, and UTI. PMH includes anemia, skin cancer with excision on R hand, gout, HTN, SOB, vertigo and a-fib. Pt demonstrates impaired strength, balance, functional mobility and gait. Pt required Bruno for all mobility including supine > sit, sit <> stand and ambulation with FWW. Treatment limited by nausea and vomiting this date. Pt reports feeling weaker than usual, pt is not safe to return home alone. Pt requires continued skilled PT while in the hospital to address impairments. Discharge recommendation is SNF, if home-going pt requires 24/7 assist and home health PT. Performance Deficits/Impairments: Decreased functional mobility , Decreased strength, Decreased balance, Decreased ROM, Decreased endurance Treatment Diagnosis: unsteadiness on feet Decision Making: Medium Complexity Treatment Initiated : transfer and gait training Activity Tolerance Activity Tolerance: Treatment limited secondary to medical complications (free text) Activity Tolerance Comments: Treatment limited by nausea and vomiting Patient Diagnosis(es): The primary encounter diagnosis was Dyspnea, unspecified type. Diagnoses of Hypoxia, Leg edema, Acute on chronic congestive heart failure, unspecified heart failure type (HCC),Acute pulmonary edema (HCC), Pyelonephritis, Diastolic congestive heart failure, unspecified HF chronicity (HCC), and Acute on chronic diastolic (congestive) heart failure (HCC) were also pertinent to this visit. has a past medical history of Anemia, Arthritis, Cancer (CMS/HCC) (HCC), GERD (gastroesophageal reflux disease), Gout, Hypertension, Psoriasis, SOB (shortness of breath), Thyroid disease, and Vertigo. has a past surgical history that includes Bladder suspension (2010); Hernia repair; Small intestinesurgery (1979); Hiatal hernia repair (10/21/2016); Skin cancer excision; Upper gastrointestinal endoscopy (07/28/2016); Hysterectomy (1998); and Aortic valve replacement (2017). Restrictions Restrictions/Precautions Restrictions/Precautions: General Precautions Required Braces or Orthoses?: No Vision/Hearing Cognition/Orientation Orientation Level: Oriented X4 Subjective General Chart Reviewed: Yes Patient Assessed for Rehabilitation Services: Yes Family / Caregiver Present: No Diagnosis: Dyspnea, bilat LE edema, CHF, pulmonary edema, UTI Follows Commands: Within Functional Limits General Comment Comments: RN approved therapy Subjective Subjective: Pt alert, in bed, oriented and agreeable to PT. Pt reported heartburn, nausea and stomach discomfort during session resulting in vomiting. RN alerted. Patient Stated Goal: To return home Social/Functional History Social/Functional History Lives With: Alone Type of Home: Apartment (low-income senior housing) Home Layout: One level Home Access: Level entry Bathroom Shower/Tub: Tub/Shower unit Bathroom Toilet: Handicap height Bathroom Equipment: Grab bars in shower, Grab bars around toilet Home Equipment: Rolling walker, Quad cane Receives Help From: Family, Neighbor (pt reports brother and granddaughter help) ADL Assistance: Independent Homemaking Assistance: Independent Ambulation Assistance: Independent With device?: Yes (pt utilizes cane to ambulate to car and walker when getting mail/taking out trash) Transfer Assistance: Independent Occupation: Retired Objective Observation/Palpation Observation: Bilat LE edema, purewick AROM RLE (degrees) RLE General AROM: Knee and hip flexion limited by edema and soft tissue, achieves 90-90 deg hip/knee flexion sitting EOB AROM LLE (degrees) LLE General AROM: Knee and hip flexion limited by edema and soft tissue, achieves 90-90 deg hip/knee flexion sitting EOB Strength Other Other: Grossly 3/5 in hip in knee demonstrated by functional mobility in bed and transfers Bed mobility Supine to Sit: Minimal assistance Scooting: Minimal assistance Comment: Pt required Bruno to elevate trunk via hand-held for supine > sit and Bruno for scooting toward EOB, HOB elevated ~30deg, pt able to manage bilat LE over EOB Transfers Sit to Stand: Minimal Assistance Stand to sit: Minimal Assistance Comment: Pt required Bruno for sit > stand from EOB to FWW, requiring assistance to initiate riseand facilitate forward trunk lean, pt required safety cues for hand placement on bed instead of walker, and cues for safe hand palcement on recliner prior to stand > sit from FWW. Pt demonstrated controlled lowering for stand > sit transfer Ambulation Ambulation: Yes Ambulation 1 Surface 1: Level tile Device 1: Rolling walker Assistance 1: Minimum assistance Quality of Gait Comment 1: Short step size, low bilat foot clearance, unsteady, increased reliance on FWW Distance (ft) 1: 4ft Comments 1: Pt required Bruno for safety cues for turning walker and cues for safe hand placement onwalker. Pt required Bruno for standing balance while ambulating. Balance Sitting - Static: Good Sitting - Dynamic: Good Standing - Static: Fair, + Standing - Dynamic: Fair, + Comments: Pt sat EOB with varying levels of UE support, no loss of balance ~4 min. Pt stood with single hand support on FWW and bilateral UE support during anterior and posterior hygiene, pt dependent for posterior hygiene and Bruno to maintain standing balance while pt completed anterior hygiene. Pt required Bruno to maintain balance during ambulation to chair with FWW. No overt loss of balance this session but pt required increased pt safety cues. Plan Times per Week: 3-5 Plan Weeks: 4 Specific Instructions for Next Treatment: Assess ambulation without device Current Treatment Recommendations: Strengthening, ROM, Balance Training, Functional Mobility Training, Transfer Training, Endurance Training, Gait Training, Safety Education & Training, Patient/Caregiver Education & Training, Home Exercise Program Safety Safety Devices Safety Devices in Place: Yes Type of Devices: Gait belt, No alarms engaged upon entry into room, All fall risk precautions in place, Patient at risk for falls, Nurse notified, Call light within reach, Left in chair Restraints Restraints Initially in Place: No AM-PAC Score AM-PAC Inpatient Mobility Raw Score (No Stairs) : 15 Goals Encounter Problems Encounter Problems (Active) Mobility Patient will ambulate 50 feet with modified independence and least restrictive device in order to improve safety and independence with mobility. Start: 09/10/22 Expected End: 10/08/22 Transfers Patient will perform bed mobility with modified independence in order to improve independence and prepare for out of bed mobility. Start: 09/10/22 Expected End: 10/08/22 Patient will complete sit to stand transfer with modified independence to rolling walker in order to improve safety and prepare for out of bed mobility. Start: 09/10/22 Expected End: 10/08/22 Education Education Given To: Patient Education Provided: Goals, PT Role, Plan of Care, Discharge recommendations, General Safety, Functional Mobility Training, Transfer Training, Gait Training Education Provided Comments: Pt educated on safe hand placement for all transfers and safe navigation with FWW Education Method: Demonstration, Verbal Barriers to Learning: None Education Outcome: Verbalized understanding Therapy Time Individual Co-treatment Time In 0739 Time Out 0812 Minutes 33 Timed Code Treatment Minutes: 8 Minutes (FA) Variance: 3 (getting supplies) Patient's Physical Therapy Plan of Care supervision is transferred to [facility] Rehab Department Physical Therapist. Goals and/or treatment plan was established in collaboration with patient/family/other representatives. Jessica Lal, DAO * Duran Laboy DO - 09/09/2022 8:18 AM EDT Hospitalist Progress Note - [facility] Acute Care [facility] ([facility]) 09/09/2022 8:18 AM Subjective and Objective: Admit Date: 09/08/2022 PCP: DIVINA SMART DO Chief Complaint Patient presents with Shortness of Breath Adult diet Regular; Low Sodium (2 gm) I/O last 3 completed shifts: In: - (0 mL/kg) Out: 750 (7.2 mL/kg) [Urine:750 (0.2 mL/kg/hr)] Weight: 103.6 kg @IODETAILS@ @OCON6TGSEOV@ Medications: cefTRIAXone, 2,000 mg, IntraVENous, q24h enoxaparin, 30 mg, SubCUTAneous, 2 times per day furosemide, 40 mg, IntraVENous, BID levothyroxine, 125 mcg, Oral, Daily losartan, 25 mg, Oral, Daily metoprolol tartrate, 12.5 mg, Oral, BID Recent Labs 09/08/22184509/09/2232 WBC 7.9 8.5 HGB 13.5 13.6 PLT 157 140 Recent Labs 09/08/22184509/09/2232 NA 133* 134* K 4.7 4.1 CL 101 95* CO2 24 31* BUN 23* 25* CREATININE 1.31* 1.28* GLUCOSE 156* 133* Recent Labs 09/08/221845 AST 27 ALT 21 BILITOT 0.5 ALKPHOS 83 Lab Results Component Value Date TRIG 129 09/09/2022 HDL 27 (L) 09/09/2022 LDLCALC 86 09/09/2022 CHOL 139 09/09/2022 No results found for: PHART, PO2ART, LQT8XKZ No results for input(s): INR in the last 72 hours. Recent Labs 09/08/221845 TROPONINI 0.018 No results for input(s): DDIMER in the last 72 hours. No results found for: HGBA1C No results found for: TSH Urine Culture: No results found for this or any previous visit. Objective: Vitals: BP 125/79 (BP Location: Left arm, Patient Position: Sitting) Pulse 63 Temp 36.8 C (98.3F) (Temporal) Resp 17 Ht 5' 1 (1.549 m) Wt 228 lb 6.3 oz (104 kg) SpO2 96% BMI 43.16 kg/m Pulse Ox: SpO2 Av.5 % Min: 94 % Max: 98 % Supplemental O2: 0.5 L O2 Internal Course: seen at bedside, frail, confirmed code status GENERAL: in bed without acute distress CARDIOVASCULAR: RRR no rubs RESPIRATORY: good breath sounds throughout ABDOMEN: non-tender, no acute abd pain EXTREMITIES: LE Edema 2+ CHRONIC ANATOMY/TUBES/LINES: N/A Running Summary, Assessment, and Plan Gonzalo is an 86 year old female with PMH of A Fib (no AC), s/p AVR (2018), Diastolic CHF, COPD, HTN, Hypothyroidism, and GERD who presented with Chief Complaint of SOB. Also found to have LE edema.She require supplemental O2 in ED. Na 133, Cr 1.31, BNP 4K, WBC 8. COVID negative. UA showed likelyUTI and Urine culture obtained. CXR showed possibly mild pulmonary edema. CT abd/pelvis showed likely cystitis, likely pyelonephritis, and extensive atrophy and cortical scarring of the left kidney may be related to prior infections or vascular compromise. #Pyelonephritis #UTI -Urine culture pending -IV Rocephin Day #2 (09/09) #Acute hypoxic respiratory failure, improving -RR 34 and required supplemental O2 in ED -Likely 2/2 underlying infection, possible CHF exacerbation -ECHO pending #Acute on chronic diastolic CHF -Had just been admitted recently to [facility] for CHF exacerbation -IV Lasix -Had been taken off her Lasix due to high potassium #HUY vs. CKD 3 -Unsure of baseline, Cr 0.9 in 2018 -Cr 1.31 on admission -Likely has underlying CKD -IV Diuresis -Trend #HTN #A Fib -Not on anticoagulation -Continue home Losartan and Lopressor #Hyponatremia, mild -Trend #DVT Prophylaxis -Lovenox #Disposition: PT/OT, may need SNF, Brother helps take care of her, he is also in his 80's #Barriers to discharge: Urine culture, symptom improvement Advance Directive: DNR CCA/DNI Duran Laboy DO Rounding Hospitalist Time Spent: 42 minutes Has at least of one of these; Number and Complexity of Problems Addressed at the Encounter: -1 or more chronic illnesses with exacerbation, progression, or side effects of treatment -2 or more stable, chronic illnesses -1 acute illness with systemic symptoms -1 acute, complicated injury Risk of Complications and/or Morbidity or Mortality of Patient Management: -Prescription drug management documented in this encounterSWayne [id number] Note* Care Coordination - Macy Louise RN - 09/12/2022 9:25 AM EDT Ambulance form created and scheduled transport for 1200. Updated facility and Heather Harris update patient and family. Number for report provided. [id number] Note* Care Coordination - Macy Louise RN - 09/12/2022 9:25 AM EDT Ambulance form created and scheduled transport for 1200. Updated facility and Heather ERICKSON. Steven update patient and family. Number for report provided. [facility] [id number] Note* Care Coordination - Macy Louise RN - 09/12/2022 8:22 AM EDT Images from the original note were not included. CARE COORDINATION DAILY NOTE/UPDATE Medical Plan: medically stable for discharge Discharge Plan: [facility] Discharge Barriers: none This TCC was tasked to follow this patient through the weekend assisting with discharge planning. Chart was reviewed. Voicemail received from [facility] [place], they are able to accept and have a bed. Active discharge order noted. RADHA TCC portion completed. Request sent to Heather ERICKSON to complete COCand check for need for an ambulance form. Request sent to [facility] to complete [id number]. Discharge documents including Discharge Summary, After Visit Summary, MAR, LABS, and Vitals [facility]. Expected discharge, Discharge Milestones, and Rapid Rounding reviewed and updated. TCC will continue to follow. Discharge Milestones and Delays Expected Date/Time: 09/12/2022 Disposition: Half-Way Facility Transport status: No current request Discharge Milestones Completed Place discharge order Complete med reconciliation Case mgmt discharge readiness Clinical Stability Diagnsotic Workup Expected Discharge History Expected Date/Time Set By Reviewed At 09/12/2022 Macy Louise RN 09/12/2022 8:41 AM 09/11/2022 Duran Laboy DO 09/11/2022 1:27 PM IV atb, placement 09/12/2022 Nerissa Tineo, RN 09/11/2022 8:20 AM 09/11/2022 Nerissa Tineo, RN 09/10/2022 8:08 AM IV lasix bid and IV rocephin,echo,PT/OT 09/11/2022 Nerissa Tineo RN 09/09/2022 8:03 AM IV lasix bid and IV rocephin 09/09/2022 Nerissa Tineo RN 09/09/2022 8:02 AM pending phys 09/11/2022 Attila Mcmahon MD 09/08/2022 10:37 PM 09/11/2022 Attila Mcmahon MD 09/08/2022 8:38 PM Length of Stay (Days): 4 GMLOS: 3.9 [facility] [id number] Note* Care Coordination - Macy Louise RN - 09/12/2022 8:22 AM EDT Images from the original note were not included. CARE COORDINATION DAILY NOTE/UPDATE Medical Plan: medically stable for discharge Discharge Plan: [facility] Discharge Barriers: none This TCC was tasked to follow this patient through the weekend assisting with discharge planning. Chart was reviewed. Voicemail received from [facility] wh[facility] [place], they are able to accept and have a bed. Active discharge order noted. RADHA TCC portion completed. Request sent to Heather ERICKSON to complete COCand check for need for an ambulance form. Request sent to [facility] to complete 7000. Discharge documents including Discharge Summary, After Visit Summary, MAR, LABS, and Vitals [facility]. Expected discharge, Discharge Milestones, and Rapid Rounding reviewed and updated. TCC will continue to follow. Discharge Milestones and Delays Expected Date/Time: 09/12/2022 Disposition: Half-Way Facility Transport status: No current request Discharge Milestones Completed Place discharge order Complete med reconciliation Case mgmt discharge readiness Clinical Stability Diagnsotic Workup Expected Discharge History Expected Date/Time Set By Reviewed At 09/12/2022 Macy Louise RN 09/12/2022 8:41 AM 09/11/2022 Duran Laboy, 09/11/2022 1:27 PM IV atb, placement 09/12/2022 Nerissa Tineo RN 09/11/2022 8:20 AM 09/11/2022 Nerissa Tineo RN 09/10/2022 8:08 AM IV lasix bid and IV rocephin,echo,PT/OT 09/11/2022 Nerissa Tineo RN 09/09/2022 8:03 AM IV lasix bid and IV rocephin 09/09/2022 Nerissa Tineo RN 09/09/2022 8:02 AM pending phys 09/11/2022 Attila Mcmahon MD 09/08/2022 10:37 PM 09/11/2022 Attila Mcmahon MD 09/08/2022 8:38 PM Length of Stay (Days): 4 GMLOS: 3.9 [place] [id number] Note* Care Coordination - Letty Burch - 09/11/2022 2:24 PM EDT Referral placed to [facility] [place] via [facility] per TCC request. Await review and response regarding ability to accept. TCC notified. [place] [id number] Note* Care Coordination - Letty Burch - 09/11/2022 2:24 PM EDT Referral placed to [facility] [place] [facility]. Await review and response regarding ability to accept. TCC notified. [address]Sehgml83-07-1536 Note* Care Coordination - Unknown Case Management - 09/11/2022 2:22 PM EDT Patient Choice Patient Name: GONZALO LEI Date of : 1935 All Providers Sent Referral Name: [facility] Address: [address] [place] [address] Name: [address] [facility] [place] Phone: [phone] Address: [address] [place], [place] [id number] [facility] [id number] Note* Care Coordination - Unknown Case Management - 09/11/2022 2:22 PM EDT Patient Choice Patient Name: GONZALO LEI Date of : 1935 All Providers Sent Referral Name: [facility] Address: [address] [place] [id number] Name: [address] [facility] [place] Phone: [phone] Address: [address] [place] [address] [facility] [id number] Note* Care Coordination - Nerissa Tineo RN - 09/11/2022 1:54 PM EDT Images from the original note were not included. Care Management Progress Note Medically stable for discharge. PT recommending SNF. Met with pt- pt agreeable but did not know thename of facility she wanted-asked to call her brother for assistance. Called and spoke with [facility] [place]. Admin assist to place referral. If accepted, pt will not need auth.Awaiting response. Discharge Milestones and Delays Expected Date/Time: 09/11/2022 Disposition: Half-Way Facility Transport status: No current request Discharge Milestones Place discharge order Complete med reconciliation Case mgmt discharge readiness Clinical Stability Diagnsotic Workup Expected Discharge History Expected Date/Time Set By Reviewed At 09/11/2022 Duran Laboy, 09/11/2022 1:27 PM IV atb, placement 09/12/2022 Nerissa Tineo RN 09/11/2022 8:20 AM 09/11/2022 Nerissa Tineo RN 09/10/2022 8:08 AM IV lasix bid and IV rocephin,kay,PT/OT 09/11/2022 Nerissa Tineo RN 09/09/2022 8:03 AM IV lasix bid and IV rocephin 09/09/2022 Nerissa Tineo RN 09/09/2022 8:02 AM pending phys 09/11/2022 Attila Mcmahon MD 09/08/2022 10:37 PM 09/11/2022 Attila Mcmahon MD 09/08/2022 8:38 PM Length of Stay (Days): 3 GMLOS: 3.9 [facility] [id number] Note* Care Coordination - Nerissa Tineo RN - 09/11/2022 1:54 PM EDT Images from the original note were not included. Care Management Progress Note Medically stable for discharge. PT recommending SNF. Met with pt- pt agreeable but did not know thename of facility she wanted-asked to call her brother for assistance. Called and spoke with [facility]- facility [facility] [place]. Admin assist to place referral. If accepted, pt will not need auth.Awaiting response. Discharge Milestones and Delays Expected Date/Time: 09/11/2022 Disposition: Half-Way Facility Transport status: No current request Discharge Milestones Place discharge order Complete med reconciliation Case mgmt discharge readiness Clinical Stability Diagnsotic Workup Expected Discharge History Expected Date/Time Set By Reviewed At 09/11/2022 Duran Laboy, 09/11/2022 1:27 PM IV atb, placement 09/12/2022 Nerissa Tineo RN 09/11/2022 8:20 AM 09/11/2022 Nerissa Tineo RN 09/10/2022 8:08 AM IV lasix bid and IV rocephin,kay,PT/OT 09/11/2022 Nerissa Tineo RN 09/09/2022 8:03 AM IV lasix bid and IV rocephin 09/09/2022 Nerissa Tineo RN 09/09/2022 8:02 AM pending phys 09/11/2022 Attila Mcmahon MD 09/08/2022 10:37 PM 09/11/2022 Attila Mcmahon MD 09/08/2022 8:38 PM Length of Stay (Days): 3 GMLOS: 3.9 [facility] [id number] Hospital Discharge instructions* Discharge Instructions* Jodi Torres RN - 09/11/2022 11:43 AM EDT My Heart Failure Action Plan Name: Gonzalo Lei Date of : 1935 Date: 09/11/2022 My doctor: Dr. Cheryl Gunter, [facility] [address] [place] [address] [address] [place], [place] [id number] My Diagnosis: HEART FAILURE WITH IMPROVED EJECTION FRACTION / DIASTOLIC HEART FAILURE My Ejection Fraction: 40% in 2017 --> 61% in 2018 --> 58% this admission My Exercise Goal: as tolerated My Weight Goal: Standing weight day of hospital discharge Weigh yourself daily using the same scale. If you gain more than 3 pounds in 24 hours or 5 pounds in a week Call Cardiology My Diet Goal: General diet recommendations for heart failure patients are less than 2,000mg sodium and less than 2 liters of fluid per day. This will help with symptoms of fluid retention, such as swelling and shortness of breath. See provider orders for additional/alternative recommendations. Emergency Room Visits: Our goal is to improve your quality of life and help you avoid a visit to the emergency room or hospital. If we work together, we can achieve this goal. But, if you feel you need to call 911 or go tothe emergency room, please do so. If you go to the emergency room, please bring your list of medicines and your daily weight chart with you. GREEN ZONE Doing well today Weight gained is no more than 3 pounds a day or 5 pounds a week. No swelling in feet, ankles, legs or stomach. No more swelling than usual. No more trouble breathing than usual. No change in my sleep. No other problems. Actions: I am doing fine. I will take my medicine, follow my diet, see my doctor, exercise, and watch for symptoms YELLOW ZONE Having a bad day or flare up Weight gained of more than 3 pounds in one day or 5 pounds in one week. New swelling in ankle, leg, knee, or thigh. Bloating in belly, pants feel tighter. Swelling in hands or face. Coughing or trouble breathing while walking or talking. Harder to breathe last night. Have trouble sleeping, wake up short of breath. Much more tired than usual. Not eating. Pain in my chest or bad leg cramps. Feel weak or dizzy. Actions: I need to take action and call my doctor or nurse today. RED ZONE Need medical care now Weight gain of 5 pounds overnight. Chest pain or pressure that does not go away. Feel less alert. Wheezing or have trouble breathing when at rest. Cannot sleep lying down. Cannot take my water pill. Pass out or faint. Actions: I need to call my doctor or nurse now! Call 911 if I have chest pain or cannot breathe. Electronically signed by: Jodi Torres RN, September 11, 2022 * Discharge Instr - RADHA* Heather Shabazz RN - 09/11/2022 1:31 PM EDT Continuity of Care Form Patient Name: Gonzalo Lei : 1935 Admit date: 09/08/2022 Discharge date: 09/12/2022 Code Status Order: DNR-CCA Advance Directives: N Admitting Physician: Tariq Jones MD PCP: DIVINA SMART DO Discharging Nurse: Otto Song Hospital Unit/Room#: N4-446/N4-446 B Discharging Unit Emergency Contact: Extended Emergency Contact Information Primary Emergency Contact: NicoleFlorian Mobile Relation: None Secondary Emergency Contact: Mar Ramey [place] Relation: None Past Surgical History: Past Surgical History: Procedure Laterality Date AORTIC VALVE REPLACEMENT 2018 BLADDER SUSPENSION 2010 w/mesh HERNIA REPAIR 4 times [place], 1979, 2007,2010, 2005 HIATAL HERNIA REPAIR 10/21/2016 lap hiatal hernia, lap Ron[place], upper GI endoscopy, dr. beltran [facility] HYSTERECTOMY 1998 SKIN CANCER EXCISION SMALL INTESTINE SURGERY 1979 UPPER GASTROINTESTINAL ENDOSCOPY 07/28/2016 Immunization History: Immunization History Administered Date(s) Administered Influenza, injectable, quadrivalent, preservative free 11/06/2016 Moderna SARS-CoV-2 Vaccination 08/30/2020, 09/27/2020 Active Problems: Medical Problems Problem List * (Principal) Dyspnea, unspecified type Bradycardia Nausea Atrial fibrillation (CMS/HCC) ([facility]) Aortic valve replaced Cognitive deficits Polypharmacy Hypothyroidism Hypertensive emergency Declining functional status Vitamin B12 deficiency Acute respiratory failure with hypoxia (CMS/HCC) ([facility]) Hiatal hernia Gastroesophageal reflux disease without esophagitis Gastroesophageal reflux disease with esophagitis Cardiomyopathy ([facility]) HCAP (healthcare-associated pneumonia) Demand ischemia (CMS/HCC) (HCC) Acute respiratory failure with hypoxia and hypercarbia (CMS/HCC) ([facility]) Aortic valve regurgitation Stress hyperglycemia Essential hypertension Isolation/Infection: No active isolations No active infections Nurse Assessment: Last Vital Signs: BP 137/72 (BP Location: Left arm, Patient Position: Sitting) Pulse 64 Temp 36.1 C (96.9 F) (Temporal) Resp 17 Ht 5' 1 (1.549 m) Wt 216 lb 12.8 oz (98.3 kg) Comment: standing SpO2 93% BMI 40.96 kg/m Last documented pain score (0-10 scale): Last Weight: Wt Readings from Last 1 Encounters: 09/11/22 216 lb 12.8 oz (98.3 kg) Mental Status: RADHA Patient Mental Status: oriented and alert IV Access: RADHA IV Access: None Nursing Mobility/ADLs: Walking Minimal assistance Transfer Independent Bathing Independent Dressing Independent Toileting Minimal assistance Feeding Minimal assistance Plant Equipment Engineer Minimal assistance Med Delivery no Wound Care Documentation and Therapy: Elimination: Continence: Bowel: no Bladder: no Urinary Catheter: None Colostomy/Ileostomy/Ileal Conduit: None Date of Last BM: 09/11/2022 Intake/Output Summary (Last 24 hours) at 09/11/2022 1330 Last data filed at 09/11/2022 0600 Gross per 24 hour Intake 150 ml Output 250 ml Net -100 ml I/O last 3 completed shifts: In: 150 (1.5 mL/kg) [P.O.:150] Out: 850 (8.6 mL/kg) [Urine:850 (0.2 mL/kg/hr)] Weight: 98.3 kg Safety Concerns: at risk for falls Impairments/Disabilities: vision and hearing Nutrition Therapy: Current Nutrition Therapy: Oral diet: general Routes of Feeding: oral Liquids: thin liquids Daily Fluid Restriction: no Last Modified Barium Swallow with Video (Video Swallowing Test): not done Treatments at the Time of Hospital Discharge: Respiratory Treatments: na Oxygen Therapy: is not on home oxygen therapy. Ventilator: No ventilator support Rehab Therapies: physical therapy, occupational therapy, and speech therapy Weight Bearing Status/Restrictions: no restriction Other Medical Equipment (for information only, NOT a DME order): walker Other Treatments: na Patient's personal belongings (please select all that are sent with patient): jami RN SIGNATURE: MANAGEMENT/SOCIAL WORK SECTION Inpatient Status Date: 09/08/22 Readmission Risk Assessment Score: @READMISSIONRISKDETAILS@ [facility] * COVID-19: Positive patients under care,* COVID-19: Willing/Equipped to accept COVID-19 positive patients,* High-Risk Isolation Patients: Willing/Equipped to accept High-Risk Isolation Patients [address] [place] [address] Dialysis Facility (if applicable) Name: Address: Dialysis Schedule: Phone: Fax: Building Equipment Inspector/Dental Assistant Instructor signature: ICIAN SECTION Prognosis: excellent Condition at Discharge: stable Rehab Potential (if transferring to Rehab): excellent Recommended Labs or Other Treatments After Discharge: BMP/CBC in at least 3 days, needs PRN Maalox for heartburn Physician Certification: I certify the above information and transfer of Gonzalo Lei is necessary for the continuing treatment of the diagnosis listed and that she requires nursing home facility for less than 30 days. Update Admission H&P: No change in H&P PHYSICIAN SIGNATURE: documented in this encounterSWayne [id number] Note* Care Coordination - Lettydavid Burch - 09/11/2022 11:27 AM EDT Referral placed to [facility] via [facility] per TCC request. Await review and response regarding ability to accept. TCC notified. [facility] [id number] Note* Care Coordination - Lettydavid Burch - 09/11/2022 11:27 AM EDT Referral placed to [facility] via [facility] per TCC request. Await review and response regarding ability to accept. TCC notified. [facility] [id number] Note* Care Coordination - Jodi Torres RN - 09/11/2022 10:50 AM EDT HF registered client associate: Chart reviewed. Pt admitted with acute on chronic HFimpEF (LVEF documented to be 40% in office note from Dr. Penaloza in 2017 --> 61% on repeat echo in 2018 --> 58% this admission). Pt also with recent hospitalization at [facility] for ADHF. Treated with IV lasix by primary and transitioned to oral diuretic on 09/11. Met with pt to discuss Cardiology follow up. Pt reports f ollowing with Dr. Luna in [place]. Contacted office to schedule. The soonest available appt is on 10/01 at 1:00PM with YOLY Ornelas. Pt also has an annual visit with Dr. Luna on 11/05 at 3:00PM. Met with pt to notify of appts and review HF zones tool. Pt not able to go on 10/01 because she is due to get an injection in her eye which has already been rescheduled. Appt rescheduled for 10/02 at 9:30AM with YOLY Ornelas. Appts added to AVS along with instructions for the facility to contact Cardiology for signs or symptoms of fluid overload. [facility] [id number] Note* Care Coordination - Jodi Torres RN - 09/11/2022 10:50 AM EDT HF registered client associate: Chart reviewed. Pt admitted with acute on chronic HFimpEF (LVEF documented to be 40% in office note from Dr. Penaloza in 2017 --> 61% on repeat echo in 2018 --> 58% this admission). Pt also with recent hospitalization at [facility] for ADHF. Treated with IV lasix by primary and transitioned to oral diuretic on 09/11. Met with pt to discuss Cardiology follow up. Pt reports f ollowing with Dr. Luna in [place]. Contacted office to schedule. The soonest available appt is on 10/01 at 1:00PM with YOLY Ornelas. Pt also has an annual visit with Dr. Luan on 11/05 at 3:00PM. Met with pt to notify of appts and review HF zones tool. Pt not able to go on 10/01 because she is due to get an injection in her eye which has already been rescheduled. Appt rescheduled for 10/02 at 9:30AM with YOLY Ornelas. Appts added to AVS along with instructions for the facility to contact Cardiology for signs or symptoms of fluid overload. [facility] [id number] Note* Home Care - Annia Hebert RN - 09/11/2022 10:35 AM EDT Patient is currently active with [facility]. The patient is currently receiving PT, OT, MEDICAL OFFICE SECRETARY services through the agency. Farm Management Supervisor to continue to follow. [facility] [id number] Note* Home Care - Annia Hebert RN - 09/11/2022 10:35 AM EDT Patient is currently active with [facility]. The patient is currently receiving PT, OT, MEDICAL OFFICE SECRETARY services through the agency. Farm Management Supervisor to continue to follow. [facility] [id number] Note* Home Care - Annia Hebert RN - 09/11/2022 10:18 AM EDT Spoke to Dr Smart's office, niurka Pollack pt is active with [facility]. Referral sent in care port to confirm. [facility] [id number] Note* Home Care - Annia Hebert RN - 09/11/2022 10:18 AM EDT Spoke to Dr Smart's office, niurka Pollack pt is active with [employer] [facility]. Referral sent in care port to confirm. [facility] [id number] Note* Home Care - Nannette Brewer RN - 09/09/2022 2:46 PM EDT [facility] lm with patient pcp to see if they are signing [facility] orders for this patient and with whom. Awaiting cb. Per patient she was supposed to be opened with [facility] which is not showing as a [facility] agency [facility] has never heard of them, however patient did admit being at [facility] recently. Notified [facility] Nerissa. Will continue to follow for needs. [id number]* Home Care - Nannette Brewer RN - 09/09/2022 2:46 PM EDT [facility] lm with patient pcp to see if they are signing hhc orders for this patient and with whom. Awaiting cb. Per patient she was supposed to be opened with [facility] which is not showing as a hhc agency [facility] has never heard of them, however patient did admit being at [facility] recently. Notified [facility] Nerissa. Will continue to follow for needs. [id number] Note* Care Coordination - Nerissa Tineo RN - 09/09/2022 10:17 AM EDT Care Managment Initial Assessment Date: 09/09/2022 Patient Name: Gonzalo Lei : 1935 Patient Information Source of Information: Patient Cognition/Language: WFL - Within Functional Limits Permission given to speak with patient sales representative/caregiver as indicated: Confirmation of Payer with patient/family: Yes Payer Name: medicare : No Confirmation of Primary Care Physician: Confirmed PCP Name: Divina Smart in [facility] Seen in last 2 years?: Yes Primary Caregiver: Self If assistance needed, confirmed caregiver ready, willing and able to care for patient at discharge: Confirmed with: Living Arrangements Current Residence: Apartment Number of Floors 1 Number of Entry Steps: (level entry) Bed/Bath Levels: Both first floor Facility: Facility Name: Plan to Return: Lives with: Alone Support Systems: Family members, Home care staff, Friends/neighbors Activities of Daily Living Ambulation: Independent (uses walker outside) Bathing/Dressing: Assistance Elimination/Continence/Toileting: Independent Feeding: Independent Who Assists with Activities of Daily Living: HC Instrumental Activities of Daily Living Prescription Coverage: Yes [facility]acy Used: [facility] [place] Medication Management: Independent Transportation/Shopping: Assistance Provider Transportation/Shopping Assistance Provider Name: granddtr or brother Transportation Mode: Car Needs Assistance with Transportation at Discharge: No Meal Preparation: Assistance Provider Laundry/Cleaning: Assistance Provider Finances/Bill Paying: Independent Communication: Independent Types of Care Services/Equipment Utilized Care Services: Skilled Home Health Services Care Services Provider Name: confirming company Dialysis Type: NA Durable Medical Equipment: Cane, Walker Patient's Goal/Discharge Plan Patient expects to be discharged to: home Discharge Planning Actions: Continue to follow Patient's Choice Rights and [employer] and Collaborative Relationships Disclosed as Indicated for Post-Acute Care: NA Interdisciplinary Team Engagement: Home Health Care Social Work Referral for: Additional Information: Pt adm for tx/evaluation of acute pulm edema/pyelonephritis and hypoxia. Currently on 1L- weaning as able as pt does not wear at baseline. Receiving IV rocephin and lasix bid. Echo ordered. Met with pt- introduced self and role. Pt from home alone and mostly indep. Pt states that she has HC services- [facility] following to confirm and for continuity of care. Pt's brother and granddaughter help with transportation, shopping, cooking and ADLs prn. Plan for home on discharge. Nerissa Tineo RN [id number] Note* Care Coordination - Nerissa Tineo RN - 09/09/2022 10:17 AM EDT Care Managment Initial Assessment Date: 09/09/2022 Patient Name: Gonzalo Lei : 1935 Patient Information Source of Information: Patient Cognition/Language: WFL - Within Functional Limits Permission given to speak with patient sales representative/caregiver as indicated: Confirmation of Payer with patient/family: Yes Payer Name: medicare : No Confirmation of Primary Care Physician: Confirmed PCP Name: Divina Smart in [facility] Seen in last 2 years?: Yes Primary Caregiver: Self If assistance needed, confirmed caregiver ready, willing and able to care for patient at discharge: Confirmed with: Living Arrangements Current Residence: Apartment Number of Floors 1 Number of Entry Steps: (level entry) Bed/Bath Levels: Both first floor Facility: Facility Name: Plan to Return: Lives with: Alone Support Systems: Family members, Home care staff, Friends/neighbors Activities of Daily Living Ambulation: Independent (uses walker outside) Bathing/Dressing: Assistance Elimination/Continence/Toileting: Independent Feeding: Independent Who Assists with Activities of Daily Living: HC Instrumental Activities of Daily Living Prescription Coverage: Yes [facility] Medication Management: Independent Transportation/Shopping: Assistance Provider Transportation/Shopping Assistance Provider Name: granddtr or brother Transportation Mode: Car Needs Assistance with Transportation at Discharge: No Meal Preparation: Assistance Provider Laundry/Cleaning: Assistance Provider Finances/Bill Paying: Independent Communication: Independent Types of Care Services/Equipment Utilized Care Services: Skilled Home Health Services Care Services Provider Name: confirming company Dialysis Type: NA Durable Medical Equipment: Cane, Walker Patient's Goal/Discharge Plan Patient expects to be discharged to: home Discharge Planning Actions: Continue to follow Patient's Choice Rights and [employer] and Collaborative Relationships Disclosed as Indicated for Post-Acute Care: NA Interdisciplinary Team Engagement: Home Health Care Social Work Referral for: Additional Information: Pt adm for tx/evaluation of acute pulm edema/pyelonephritis and hypoxia. Currently on 1L- weaning as able as pt does not wear at baseline. Receiving IV rocephin and lasix bid. Echo ordered. Met with pt- introduced self and role. Pt from home alone and mostly indep. Pt states that she has HC services- possibly with [facility] following to confirm and for continuity of care. Pt's brother and granddaughter help with transportation, shopping, cooking and ADLs prn. Plan for home on discharge. Nerissa Tineo RN [id number] Plan of care note* Care Plan - Marlys Shah RN - 09/09/2022 3:03 AM EDT Problem: Knowledge Deficit Goal: Patient/family/caregiver demonstrates understanding of disease process, treatment plan, medications, and discharge instructions Outcome: Progressing Problem: Potential for Compromised Skin Integrity Goal: Skin Integrity is Maintained or Improved Outcome: Progressing Goal: Nutritional status is improving Outcome: Progressing Problem: Urinary Incontinence Goal: Perineal skin integrity is maintained or improved Outcome: Progressing The patient is Moderately Stable - Low risk of patient condition declining or worsening The patient's goals for the shift include rest The clinical goals for the shift include keep patient safe Over the shift, the patient did not make progress toward the following goals. Barriers to progression include anxiety. Recommendations to address these barriers include emotional support. [id number] History and physical note* Tariq Jones MD - 09/08/2022 11:18 PM EDT Images from the original note were not included. Attending History and Physical Admit Date: 09/08/2022 PCP: DIVINA SMART DO CHIEF COMPLAINT: Patient presents with Shortness of Breath HISTORY OF PRESENT ILLNESS: Gonzalo is a 86 y.o. female who presents to the emergency department with shortness of breath bilateral lower extremity edema hypoxia Patient has a history of hypoxic respiratory failure, atrial fibrillation, healthcare associated pneumonia, cardiomyopathy, she is on Lasix every other day for congestive heart failure and she is on metoprolol for hypertension. History of aortic valve replacement. Non-smoker. Family history of hypertension. She says for the last 2 days she has been vomiting everything she tries to eat and has notbeen able to keep her medications down including her metoprolol and her Lasix. She has worsening bilateral lower extremity edema, she has bibasilar Rales according to EMS. EMS noted initial oxygen saturation of 85% on room air which they improved with 4 L/min nasal cannula up to 98%. Tachypneic at 24 breaths/min. Denies any chest pain denies any abdominal pain but has been vomiting for the last 2days. She says that she was recently hospitalized at [facility] and had to have lots of fluid removed, which may represent aggressive diuresis. She also has a history of COPD. Significant bilateral lower extremity edema without cellulitis. Further review of systems limited by acuity. Patient was met by me immediately upon arrival in the resuscitation bay. Past Medical History: Past Medical History: Diagnosis Date Anemia Arthritis Cancer (CMS/HCC) (HCC) Skin arm and leg GERD (gastroesophageal reflux disease) Gout Hypertension Psoriasis SOB (shortness of breath) Thyroid disease Vertigo Past Surgical History: Past Surgical History: Procedure Laterality Date AORTIC VALVE REPLACEMENT 2018 BLADDER SUSPENSION 2010 w/mesh HERNIA REPAIR 4 times [place], 1979, 2007,2010, 2005 HIATAL HERNIA REPAIR 10/21/2016 lap hiatal hernia, lap Ronen, upper GI endoscopy, dr. beltran ach HYSTERECTOMY 1998 SKIN CANCER EXCISION SMALL INTESTINE SURGERY 1979 UPPER GASTROINTESTINAL ENDOSCOPY 07/28/2016 Social History: Social History Socioeconomic History Marital status: Spouse name: Not on file Number of children: Not on file Years of education: Not on file Highest education level: Not on file Occupational History Not on file Tobacco Use Smoking status: Never Smokeless tobacco: Never Substance and Sexual Activity Alcohol use: No Drug use: No Sexual activity: Not on file Other Topics Concern Not on file Social History Narrative Not on file Social Determinants of Health Financial Resource Strain: Not on file Food Insecurity: Not on file Transportation Needs: Not on file Physical Activity: Not on file Stress: Not on file Social Connections: Not on file Intimate Partner Violence: Not on file Housing Stability: Not on file Family History: Family History Problem Relation Name Age of Onset Hypertension Mother Colon cancer Neg Hx Hypertension Father Medications Prior to Admission: No current facility-administered medications on file prior to encounter. Current Outpatient Medications on File Prior to Encounter Medication Sig Dispense Refill metoprolol tartrate (Lopressor) 25 MG tablet 12.5 mg 2 times daily. levothyroxine (Synthroid, Levoxyl) 125 MCG tablet Take 125 mcg by mouth daily. losartan (Cozaar) 50 MG tablet Take 25 mg by mouth daily. Allergies: No Known Allergies REVIEW OF SYSTEMS: Pertinent positives and negatives as per HPI Vitals: BP 138/85 (Patient Position: Lying) Pulse 66 Temp 36.4 C (97.5 F) (Temporal) Resp 16 Ht 5' 1 (1.549 m) Wt 228 lb 6.3 oz (104 kg) SpO2 98% BMI 43.16 kg/m BMI Classification: Pulse Ox: SpO2 Av.6 % Min: 94 % Max: 98 % Supplemental O2: O2 Flow Rate (L/min): 2 L/min PHYSICAL EXAM: Physical Exam General: Ill-appearing elderly female lying Semi-Charles's in bed. Morbidly obese. Dyspneic. HENT: Head NCAT, EOMI with no erythema, swelling or discharge. Oropharyngeal mucus membranes moist,pink, no exudate Neck: Full ROM, supple, no rigidity Cardio: Heart rate upper limit of normal, nl s1 s2 III/ systolic murmur loudest in the aortic region, extremities warm, dry, well perfused, 2+ bilateral lower extremity pitting edema Lungs: Bibasilar Rales, diminished lung sounds in bilateral bases and bilateral middle lung omalley.Scattered wheezing in bilateral apices. Tachypneic, subtle intercostal muscle retractions no sternocleidomastoid retractions. SaO2 92% on room air upon arrival to the ED. Abdomen: Soft, NT, ND, non-rigid, BS x 4 hypoactive. Morbidly obese. No flank pain to palpation bilaterally. No CVA tenderness to palpation bilaterally. Skin: Warm, dry, pink, no rashes, bruising, or lacerations, no petechiae, no purpura. No cellulitisbilateral lower extremities. Neuro: Alert, oriented, able to answer simple questions and follow simple commands. DATA: CBC: Recent Labs 09/08/221845 WBC 7.9 RBC 4.45 HGB 13.5 HCT 40.6 MCV 91.2 RDW 13.9 PLT 157 BMP: Recent Labs 09/08/221845 NA 133* K 4.7 CL 101 CO2 24 BUN 23* CREATININE 1.31* GLUCOSE 156* CALCIUM 8.8 ANIONGAP 8 LIVER PROFILE: Recent Labs 09/08/221845 AST 27 ALT 21 BILITOT 0.5 ALKPHOS 83 PROT 7.0 PT/INR: No results for input(s): PROTIME, INR in the last 72 hours. CARDIAC ENZYMES: Recent Labs 09/08/221845 TROPONINI 0.018 Procalcitonin: No results found for: PROCAL Urine Culture: No results found for this or any previous visit. COVID-19 PCR: No results for input(s): COVID19 in the last 72 hours. I reviewed: [x] laboratory results [x] radiographic results At the time of today's encounter. Pt was advised of the results. IMPRESSION: # possible pyelonephritis # ADHF # Hypoxia # Bilateral lower extremity edema - on supplemental oxygen 2 lpm - on Rocephin - Lasix 40 mg bid - Cardiology consult # HTN # A fib # severe s/p AVR 2018 # Hypothyroidism # GERD - home meds as ordered Medical Decision Making: -Discussed with ED provider and agree with their plan for admission -PT/OT eval/increase activity -am labs, replace lytes prn -vitals per routine -home meds as ordered -DVT prophylaxis: [x] Lovenox [] Heparin [] SCDs [x] Encourage ambulation [] Already on Anticoagulation Extended Emergency Contact Information Primary Emergency Contact: Florian Rivera Mobile Relation: None Secondary Emergency Contact: YenimargaritaMar Relation: None Code status: Full Code -see below for additional orders, further recommendations to follow Orders Placed This Encounter Procedures SARS-CoV-2, Flu A/B, and RSV Combo Urine culture XR chest [address] abdomen pelvis w contrast CBC auto differential Comprehensive metabolic panel Lipase Troponin I NT PRO BNP Lactic acid, sepsis, with reflex if elevated Urinalysis with reflex microscopic Lipid panel - FASTING CBC auto differential Basic Metabolic Panel w/ Mg Reflex Basic metabolic panel Adult diet Regular; Low Sodium (2 gm) Vital signs Straight cath Activity Up With Assistance; Ambulate With Assistance; Twice Daily; As Tolerated Vital Signs Vital Signs Notify patient's primary care provider of admission Strict intake and output Daily weights Weigh patient upon admission Nursing communication Nursing communication Sequential compression device to be worn until ambulating at least 4 times daily Telemetry monitoring for Heart Failure - Acute Notify physician per STANDARD parameters Full code Inpatient consult to Hospitalist--[facility] Inpatient Consult to Heart Failure Nurse/Coordinator Pulse oximetry, continuous Oxygen Therapy - Device: Nasal Cannula; Indiciation for O2 Tx? SpO2 less than 90%; Initial Flow Rate (L/Min): 2; SpO2 Goal (%): 90-96%; Initiate Oxygen Titration: Yes; Should O2 be decreased below initial flow rate to room air? Yes Initiate Oxygen Therapy Protocol ECG 12 lead Admit to inpatient Please forward a copy of this H&P to the patient's PCP. Thank you. [employer] Phone: [phone] [phone] History and physical note* Tariq Jones MD - 09/08/2022 11:18 PM EDT Images from the original note were not included. Attending History and Physical Admit Date: 09/08/2022 PCP: DIVINA SMART DO CHIEF COMPLAINT: Patient presents with Shortness of Breath HISTORY OF PRESENT ILLNESS: Gonzalo is a 86 y.o. female who presents to the emergency department with shortness of breath bilateral lower extremity edema hypoxia Patient has a history of hypoxic respiratory failure, atrial fibrillation, healthcare associated pneumonia, cardiomyopathy, she is on Lasix every other day for congestive heart failure and she is on metoprolol for hypertension. History of aortic valve replacement. Non-smoker. Family history of hypertension. She says for the last 2 days she has been vomiting everything she tries to eat and has notbeen able to keep her medications down including her metoprolol and her Lasix. She has worsening bilateral lower extremity edema, she has bibasilar Rales according to EMS. EMS noted initial oxygen saturation of 85% on room air which they improved with 4 L/min nasal cannula up to 98%. Tachypneic at 24 breaths/min. Denies any chest pain denies any abdominal pain but has been vomiting for the last 2days. She says that she was recently hospitalized at [facility] and had to have lots of fluid removed, which may represent aggressive diuresis. She also has a history of COPD. Significant bilateral lower extremity edema without cellulitis. Further review of systems limited by acuity. Patient was met by me immediately upon arrival in the resuscitation bay. Past Medical History: Past Medical History: Diagnosis Date Anemia Arthritis Cancer (CMS/HCC) (HCC) Skin arm and leg GERD (gastroesophageal reflux disease) Gout Hypertension Psoriasis SOB (shortness of breath) Thyroid disease Vertigo Past Surgical History: Past Surgical History: Procedure Laterality Date AORTIC VALVE REPLACEMENT 2018 BLADDER SUSPENSION 2010 w/mesh HERNIA REPAIR 4 times [place], 1979, 2007,2010, 2005 HIATAL HERNIA REPAIR 10/21/2016 lap hiatal hernia, lap Ron[place], upper GI endoscopy, dr. beltran ach HYSTERECTOMY 1998 SKIN CANCER EXCISION SMALL INTESTINE SURGERY 1979 UPPER GASTROINTESTINAL ENDOSCOPY 07/28/2016 Social History: Social History Socioeconomic History Marital status: Spouse name: Not on file Number of children: Not on file Years of education: Not on file Highest education level: Not on file Occupational History Not on file Tobacco Use Smoking status: Never Smokeless tobacco: Never Substance and Sexual Activity Alcohol use: No Drug use: No Sexual activity: Not on file Other Topics Concern Not on file Social History Narrative Not on file Social Determinants of Health Financial Resource Strain: Not on file Food Insecurity: Not on file Transportation Needs: Not on file Physical Activity: Not on file Stress: Not on file Social Connections: Not on file Intimate Partner Violence: Not on file Housing Stability: Not on file Family History: Family History Problem Relation Name Age of Onset Hypertension Mother Colon cancer Neg Hx Hypertension Father Medications Prior to Admission: No current facility-administered medications on file prior to encounter. Current Outpatient Medications on File Prior to Encounter Medication Sig Dispense Refill metoprolol tartrate (Lopressor) 25 MG tablet 12.5 mg 2 times daily. levothyroxine (Synthroid, Levoxyl) 125 MCG tablet Take 125 mcg by mouth daily. losartan (Cozaar) 50 MG tablet Take 25 mg by mouth daily. Allergies: No Known Allergies REVIEW OF SYSTEMS: Pertinent positives and negatives as per HPI Vitals: BP 138/85 (Patient Position: Lying) Pulse 66 Temp 36.4 C (97.5 F) (Temporal) Resp 16 Ht 5' 1 (1.549 m) Wt 228 lb 6.3 oz (104 kg) SpO2 98% BMI 43.16 kg/m BMI Classification: Pulse Ox: SpO2 Av.6 % Min: 94 % Max: 98 % Supplemental O2: O2 Flow Rate (L/min): 2 L/min PHYSICAL EXAM: Physical Exam General: Ill-appearing elderly female lying Semi-Charles's in bed. Morbidly obese. Dyspneic. HENT: Head NCAT, EOMI with no erythema, swelling or discharge. Oropharyngeal mucus membranes moist,pink, no exudate Neck: Full ROM, supple, no rigidity Cardio: Heart rate upper limit of normal, nl s1 s2 III/ systolic murmur loudest in the aortic region, extremities warm, dry, well perfused, 2+ bilateral lower extremity pitting edema Lungs: Bibasilar Rales, diminished lung sounds in bilateral bases and bilateral middle lung omalley.Scattered wheezing in bilateral apices. Tachypneic, subtle intercostal muscle retractions no sternocleidomastoid retractions. SaO2 92% on room air upon arrival to the ED. Abdomen: Soft, NT, ND, non-rigid, BS x 4 hypoactive. Morbidly obese. No flank pain to palpation bilaterally. No CVA tenderness to palpation bilaterally. Skin: Warm, dry, pink, no rashes, bruising, or lacerations, no petechiae, no purpura. No cellulitisbilateral lower extremities. Neuro: Alert, oriented, able to answer simple questions and follow simple commands. DATA: CBC: Recent Labs 09/08/221845 WBC 7.9 RBC 4.45 HGB 13.5 HCT 40.6 MCV 91.2 RDW 13.9 PLT 157 BMP: Recent Labs 09/08/221845 NA 133* K 4.7 CL 101 CO2 24 BUN 23* CREATININE 1.31* GLUCOSE 156* CALCIUM 8.8 ANIONGAP 8 LIVER PROFILE: Recent Labs 09/08/221845 AST 27 ALT 21 BILITOT 0.5 ALKPHOS 83 PROT 7.0 PT/INR: No results for input(s): PROTIME, INR in the last 72 hours. CARDIAC ENZYMES: Recent Labs 09/08/22 184 TROPONINI 0.018 Procalcitonin: No results found for: PROCAL Urine Culture: No results found for this or any previous visit. COVID-19 PCR: No results for input(s): COVID19 in the last 72 hours. I reviewed: [x] laboratory results [x] radiographic results At the time of today's encounter. Pt was advised of the results. IMPRESSION: # possible pyelonephritis # ADHF # Hypoxia # Bilateral lower extremity edema - on supplemental oxygen 2 lpm - on Rocephin - Lasix 40 mg bid - Cardiology consult # HTN # A fib # severe s/p AVR 2018 # Hypothyroidism # GERD - home meds as ordered Medical Decision Making: -Discussed with ED provider and agree with their plan for admission -PT/OT eval/increase activity -am labs, replace lytes prn -vitals per routine -home meds as ordered -DVT prophylaxis: [x] Lovenox [] Heparin [] SCDs [x] Encourage ambulation [] Already on Anticoagulation Extended Emergency Contact Information Primary Emergency Contact: Florian Rivera Mobile Relation: None Secondary Emergency Contact: Mar Ramey Relation: None Code status: Full Code -see below for additional orders, further recommendations to follow Orders Placed This Encounter Procedures SARS-CoV-2, Flu A/B, and RSV Combo Urine culture XR chest [address] abdomen pelvis w contrast CBC auto differential Comprehensive metabolic panel Lipase Troponin I NT PRO BNP Lactic acid, sepsis, with reflex if elevated Urinalysis with reflex microscopic Lipid panel - FASTING CBC auto differential Basic Metabolic Panel w/ Mg Reflex Basic metabolic panel Adult diet Regular; Low Sodium (2 gm) Vital signs Straight cath Activity Up With Assistance; Ambulate With Assistance; Twice Daily; As Tolerated Vital Signs Vital Signs Notify patient's primary care provider of admission Strict intake and output Daily weights Weigh patient upon admission Nursing communication Nursing communication Sequential compression device to be worn until ambulating at least 4 times daily Telemetry monitoring for Heart Failure - Acute Notify physician per STANDARD parameters Full code Inpatient consult to Hospitalist--[facility] Inpatient Consult to Heart Failure Nurse/Coordinator Pulse oximetry, continuous Oxygen Therapy - Device: Nasal Cannula; Indiciation for O2 Tx? SpO2 less than 90%; Initial Flow Rate (L/Min): 2; SpO2 Goal (%): 90-96%; Initiate Oxygen Titration: Yes; Should O2 be decreased below initial flow rate to room air? Yes Initiate Oxygen Therapy Protocol ECG 12 lead Admit to inpatient Please forward a copy of this H&P to the patient's PCP. Thank you. documented in this [place] [id number] Emergency department Note* Branden Montoya RN - 09/08/2022 9:37 PM EDT Report called to Marlys Bryant nurse has no further questions Branden Montoya RN 09/08/222137 [id number] Emergency department Note* Branden Montoya RN - 09/08/2022 9:37 PM EDT Report called to Marly[facility] Bryant nurse has no further questions Branden Montoya RN 09/08/222137 * Nicci Vaughn RN - 09/08/2022 6:37 PM EDT Gonzalo Lei, age 86, came to ED10 by squad with shortness of breath. Patient has bilateral lower extremity edema. Patient is 93% on room air and 98 on 2 liters of oxygen via nasal cannula. Patient isAOx3. Patient stated she has had aortic valve replacement 5 years ago. Vitals obtained. Nicci Vaughn RN 09/08/221840 * Brooke Blank RN - 09/08/2022 6:36 PM EDT When asked for her med list the pt states that all of her meds are on file at [facility], she states she just had fluid taken off at [facility] last week. Pt states she asked EMS to take her to [facility] and they told her it was too far. Physician aware. Brooke Blank RN 09/08/22 371 * Attila Mcmahon MD - 09/08/2022 6:29 PM EDT EMERGENCY DEPARTMENT ENCOUNTER Pt Name: Gonzalo Lei Birthdate 1935 Date of evaluation: 09/08/2022 ED Provider: Attila Mcmahon MD CHIEF COMPLAINT Chief Complaint Patient presents with Shortness of Breath HISTORY OF PRESENT ILLNESS (Location/Symptom, Timing/Onset, Context/Setting, Quality, Duration, Modifying Factors, Severity) Note limiting factors. I wore appropriate PPE for the entirety of this encounter. HPI Gonzalo Lei is a 86 y.o. who presents to the emergency department with shortness of breath bilateral lower extremity edema hypoxia Patient has a history of hypoxic respiratory failure, atrial fibrillation, healthcare associated pneumonia, cardiomyopathy, she is on Lasix every other day for congestive heart failure and she is on metoprolol for hypertension. History of aortic valve replacement. Non-smoker. Family history of hypertension. She says for the last 2 days she has been vomiting everything she tries to eat and has notbeen able to keep her medications down including her metoprolol and her Lasix. She has worsening bilateral lower extremity edema, she has bibasilar Rales according to EMS. EMS noted initial oxygen saturation of 85% on room air which they improved with 4 L/min nasal cannula up to 98%. Tachypneic at 24 breaths/min. Denies any chest pain denies any abdominal pain but has been vomiting for the last 2days. She says that she was recently hospitalized at [facility] and had to have lots of fluid removed, which may represent aggressive diuresis. She also has a history of COPD. Significant bilateral lower extremity edema without cellulitis. Further review of systems limited by acuity. Patient was met by me immediately upon arrival in the resuscitation bay. Nursing Notes were reviewed. Limitations to history: None Outside historians: EMS REVIEW OF SYSTEMS Review of Systems Pertinent positives and negatives as per HPI PAST MEDICAL HISTORY Past Medical History: Diagnosis Date Anemia Arthritis Cancer (CMS/HCC) (HCC) Skin arm and leg GERD (gastroesophageal reflux disease) Gout Hypertension Psoriasis SOB (shortness of breath) Thyroid disease Vertigo SURGICAL HISTORY Past Surgical History: Procedure Laterality Date AORTIC VALVE REPLACEMENT 2017 BLADDER SUSPENSION 2010 w/mesh HERNIA REPAIR 4 times [place], 1979, 2007,2010, 2005 HIATAL HERNIA REPAIR 10/21/2016 lap hiatal hernia, lap Ronen, upper GI endoscopy, dr. beltran ach HYSTERECTOMY 1998 SKIN CANCER EXCISION SMALL INTESTINE SURGERY 1979 UPPER GASTROINTESTINAL ENDOSCOPY 07/28/2016 CURRENT MEDICATIONS Previous Medications LEVOTHYROXINE (SYNTHROID, LEVOXYL) 125 MCG TABLET Take 125 mcg by mouth daily. LOSARTAN (COZAAR) 50 MG TABLET take 1/2 tablet by mouth once daily METOPROLOL TARTRATE (LOPRESSOR) 25 MG TABLET 12.5 mg. ALLERGIES Patient has no known allergies. FAMILY HISTORY Family History Problem Relation Name Age of Onset Hypertension Mother Colon cancer Neg Hx Hypertension Father SOCIAL HISTORY Social History Socioeconomic History Marital status: Tobacco Use Smoking status: Never Smokeless tobacco: Never Substance and Sexual Activity Alcohol use: No Drug use: No SCREENINGS PHYSICAL EXAM ED Triage Vitals Temp Pulse Resp BP -- -- -- -- SpO2 Temp src Heart Rate Source Patient Position -- -- -- -- BP Location FiO2 (%) -- -- Physical Exam General: Ill-appearing elderly female lying Semi-Charles's in bed. Morbidly obese. Dyspneic. HENT: Head NCAT, EOMI with no erythema, swelling or discharge. Oropharyngeal mucus membranes moist,pink, no exudate Neck: Full ROM, supple, no rigidity Cardio: Heart rate upper limit of normal, nl s1 s2 III/ systolic murmur loudest in the aortic region, extremities warm, dry, well perfused, 2+ bilateral lower extremity pitting edema Lungs: Bibasilar Rales, diminished lung sounds in bilateral bases and bilateral middle lung omalley.Scattered wheezing in bilateral apices. Tachypneic, subtle intercostal muscle retractions no sternocleidomastoid retractions. SaO2 92% on room air upon arrival to the ED. Abdomen: Soft, NT, ND, non-rigid, BS x 4 hypoactive. Morbidly obese. No flank pain to palpation bilaterally. No CVA tenderness to palpation bilaterally. Skin: Warm, dry, pink, no rashes, bruising, or lacerations, no petechiae, no purpura. No cellulitisbilateral lower extremities. Neuro: Alert, oriented, able to answer simple questions and follow simple commands. DIAGNOSTIC RESULTS RADIOLOGY (Per Emergency Physician): Interpretation per the Radiologist below, if available at the time of this note: CT abdomen pelvis w contrast Final Result Diffuse bladder wall thickening and mild surrounding fat stranding suggestive of cystitis. There isurothelial thickening and hyperenhancement bilaterally in the kidneys and proximal ureters suggestive of ascending upper urinary tract infection. Patchy cortical hypoenhancement in the right upper kidney is also concerning for potential associated pyelonephritis. Extensive atrophy and cortical scarring of the left kidney may be related to prior infections or vascular compromise. Report Dictated on Electronically Signed By: Kei Guzman DR Electronically Signed Date/Time: 09/08/2022 8:17 PM EDT XR chest 1 view Final Result Cardiomegaly with median sternotomy changes. Question mild pulmonary edema. Low lung volumes. Report Dictated on Electronically Signed By: Bárbara Vinson MD Electronically Signed Date/Time: 09/08/2022 6:45 PM EDT LABS: Labs Reviewed CBC WITH AUTO DIFFERENTIAL - Abnormal Result Value Auto WBC 7.9 RBC 4.45 Hemoglobin 13.5 Hematocrit 40.6 MCV 91.2 MCH 30.3 MCHC 33.3 RDW 13.9 Platelets 157 MPV 12.3 Neutrophils Relative 79.4 Lymphocytes Relative 8.9 (*) Monocytes Relative 10.5 (*) Eosinophils Relative 0.4 (*) Basophils Relative 0.4 Immature Grans % 0.4 (*) Neutrophils Absolute 6.3 Lymphocytes Absolute 0.7 (*) Monocytes Absolute 0.8 Eosinophils Absolute 0.0 Basophils Absolute 0.0 Immature Grans Absolute 0.0 COMPREHENSIVE METABOLIC PANEL - Abnormal SODIUM 133 (*) POTASSIUM 4.7 CHLORIDE 101 CARBON DIOXIDE 24 ANION GAP 8 UREA NITROGEN 23 (*) CREATININE 1.31 (*) GLUCOSE 156 (*) CALCIUM 8.8 AST (SGOT) 27 ALT 21 ALKALINE PHOSPHATASE 83 ALBUMIN 3.8 BILIRUBIN, TOTAL 0.5 TOTAL PROTEIN 7.0 eGFR 39.8 (*) NT PRO BNP - Abnormal NT PRO BNP 4,420 (*) SARS-COV-2, FLU A/B, AND RSV COMBO - Normal SARS-CoV-2 Not Detected Respiratory Syncytial Virus Not Detected Influenza A Not Detected Influenza B Not Detected Narrative: Methodology: real-time, RT-PCR The SARS-CoV-2, Flu A/B, and RSV Combo assay is intended for in vitro diagnostic use under the FDA Emergency Use Authorization (EUA). This test has not been FDA cleared or approved. In compliance with this authorization, please visit www.fda.gov/media/995984/download or www.fda.gov/media/846867/download to access the applicable information sheets. LIPASE - Normal LIPASE 38 TROPONIN I - Normal TROPONIN I 0.018 Narrative: Patients with high levels of Biotin oral intake (ie >5 mg/day) may have falsely decreased Troponin levels. LACTIC ACID, SEPSIS WITH REFLEX IF ELEVATED - Normal LACTIC ACID 0.9 URINE CULTURE COMPLETE URINALYSIS All other labs were within normal range or not returned as of this dictation. EMERGENCY DEPARTMENT COURSE and DIFFERENTIAL DIAGNOSIS/MDM: Vitals: Vitals: 09/08/22 1926 09/08/22 1940 09/08/22 19409/08/221944 BP: (!) 144/88 (!) 148/99 132/58 138/56 BP Location: Patient Position: Pulse: 85 71 71 70 Resp: 19 21 (!) 34 15 Temp: SpO2: 97% 97% 94% Weight: Height: Medications cefTRIAXone (Rocephin) 1,000 mg in sodium chloride 0.9 % 50 mL IVPB Mini-Bag Plus (has no administration in time range) furosemide (Lasix) injection 80 mg (80 mg IntraVENous Given 09/08/221956) 86-year-old female presents for hypoxia bilateral lower extremity edema, unable to take her Lasix for 2 days, tachycardic tachypneic diminished breath sounds in bilateral bases, history of aortic valve replacement Concern for CHF exacerbation, aortic valve malfunction, heart attack, COPD exacerbation, pneumonia,less likely pulmonary embolism given obviously abnormal physical examination and lung sounds. We will start patient on 2 L/min nasal cannula as her SaO2 is still slightly low, 80 mg empirical IV Lasix, chest x-ray look for pneumonia versus CHF, CT abdomen pelvis to evaluate for cause of nausea vomiting, repeat EKG to ensure no STEMI (EMS EKG showed no STEMI prior to arrival), patient will requirehospitalization. Low threshold for starting noninvasive positive pressure ventilation/BiPAP on thispatient. MDM elements: The patient presented with chief complaint of shortness of breath, tachypnea, hypoxia. The differential diagnosis associated with this patient's presentation includes complex, see above. Our workup consisted of ordering/reviewing: EKG chest x-ray CT abdomen pelvis full cardiac work-up. To aid in management, I performed an independent interpretation of EKG(s) see below Xray(s) see below CT scan(s) see below Blood work, see below. I also reviewed external records from external [facility]ogram [facility] 2018 showed ejection fraction of 61%.. The patient will be Admitted. Patient is in agreement with this plan. Patient's care was impacted by Heart disease. PROCEDURES: Unless otherwise noted below, none Procedures I read and interpreted this EKG. My interpretation can be found in the [employer] EKG system. Metabolic panel shows no metabolic acidosis, suboptimal kidney function with a creatinine 1.31. Glucose mildly elevated at 156 Aminotransferases and alkaline phosphatase unremarkable Troponin negative BNP elevated at 4420, suggestive of CHF No lactic acidosis Normal white blood cell count Not anemic Normal platelet count COVID-19 negative RSV negative Influenza negative Chest x-ray shows cardiomegaly with median sternotomy changes. Mild pulmonary edema. Low lung volumes. Interpreted by me. CT abdomen pelvis shows diffuse bladder wall thickening and mild fat stranding suggestive of cystitis and this thickening and hyperenhancement extends superiorly to the kidneys and proximal ureters suggestive of upper urinary tract infection i.e. pyelonephritis which may explain the nausea vomiting. No signs of colitis diverticulitis or bowel obstruction. Interpreted by me. On reassessment, patient's SaO2 is 94% on 2 L/min nasal cannula oxygen. She is diuresing very well with the IV Lasix dose. No indication for noninvasive positive pressure ventilation or endotracheal intubation at this time. Therefore no indication for ICU admission. The pulmonary edema is relatively mild and she is normotensive and not tachycardic, respiratory rate is 15 breaths/min. Mental status is normal. There is no indication for emergent CCU consultation either. However given her advancedage and pulmonary edema and pyelonephritis and nausea vomiting, [facility] and urine culture ordered. These are still pending at the time of admission. IV ceftriaxone also ordered to treat the pyelonephritis. Patient will continue to diurese on IV Lasixand SaO2 is maintained on 2 L/min nasal cannula oxygen. On reassessment, there is no cyanosis no retractions no tachypnea and she speaks in complete sentences. Therefore, after discussing the case with the [facility] hospitalist Dr. Jones, we agreed that she is stable for floor admission. Disposition: [facility] admit Critical Care Attestation: The patient required critical care because the patient was hypoxic with pulmonary edema. Critical care provided to the patient included: Lab review, multiple reassessments of patient, working with consultants, treating pulmonary edema and hypoxia and pyelonephritis, documentation time. Critical care time does not include any procedures performed. I personally saw the patient and independently provided 40 minutes of non-concurrent critical care. CRITICAL CARE TIME FINAL IMPRESSION 1. Dyspnea, unspecified type 2. Hypoxia 3. Leg edema 4. Acute on chronic congestive heart failure, unspecified heart failure type (HCC) 5. Acute pulmonary edema (HCC) 6. Pyelonephritis DISPOSITION Admit 09/08/2022 08:38:37 PM PATIENT REFERRED TO: No follow-up provider specified. DISCHARGE MEDICATIONS: New Prescriptions No medications on file (Comment: Please note this report has been produced using speech recognition software and may contain errors related to that system including errors in grammar, punctuation, and spelling, as well as words and phrases that may be inappropriate. If there are any questions or concerns please feel freeto contact the dictating provider for clarification.) Attila Mcmahon MD (electronically signed) Emergency Medicine Provider Attila Mcmahon MD 09/08/222042 * Nicci Vaughn RN - 09/08/2022 6:29 PM EDT Gonzalo Lei, age 86, came to ED10 by squad with shortness of breath. Patient has bilateral lower extremity edema. Patient is 93% on room air and 98 on 2 liters of oxygen via nasal cannula. Patient isAOx3. Patient stated she has had aortic valve replacement 5 years ago. Vitals obtained. Physician at bedside. documented in this [facility]08-01-2023 Emergency department Note* Nicci Vaughn RN - 09/08/2022 6:37 PM EDT Gonzalo Lei, age 86, came to ED10 by squad with shortness of breath. Patient has bilateral lower extremity edema. Patient is 93% on room air and 98 on 2 liters of oxygen via nasal cannula. Patient isAOx3. Patient stated she has had aortic valve replacement 5 years ago. Vitals obtained. Nicci Vaughn RN 09/08/22 [id number] [id number]* Brooke Blank RN - 09/08/2022 6:36 PM EDT When asked for her med list the pt states that all of her meds are on file at [facility], she states she just had fluid taken off at [facility] last week. Pt states she asked EMS to take her to [facility] and they told her it was too far. Physician aware. Brooke Blank RN 09/08/22 [id number] [id number] Triage note* Nicci Vaughn RN - 09/08/2022 6:29 PM EDT Gonzalo Lei, age 86, came to ED10 by squad with shortness of breath. Patient has bilateral lower extremity edema. Patient is 93% on room air and 98 on 2 liters of oxygen via nasal cannula. Patient isAOx3. Patient stated she has had aortic valve replacement 5 years ago. Vitals obtained. Physician at bedside. [place] [id number] Physician Emergency department Note* Attila Mcmahon MD - 09/08/2022 6:29 PM EDT EMERGENCY DEPARTMENT ENCOUNTER Pt Name: Gonzalo Lei Birthdate 1935 Date of evaluation: 09/08/2022 ED Provider: Attila Mcmahon MD CHIEF COMPLAINT Chief Complaint Patient presents with Shortness of Breath HISTORY OF PRESENT ILLNESS (Location/Symptom, Timing/Onset, Context/Setting, Quality, Duration, Modifying Factors, Severity) Note limiting factors. I wore appropriate PPE for the entirety of this encounter. HPI Gonzalo Lei is a 86 y.o. who presents to the emergency department with shortness of breath bilateral lower extremity edema hypoxia Patient has a history of hypoxic respiratory failure, atrial fibrillation, healthcare associated pneumonia, cardiomyopathy, she is on Lasix every other day for congestive heart failure and she is on metoprolol for hypertension. History of aortic valve replacement. Non-smoker. Family history of hypertension. She says for the last 2 days she has been vomiting everything she tries to eat and has notbeen able to keep her medications down including her metoprolol and her Lasix. She has worsening bilateral lower extremity edema, she has bibasilar Rales according to EMS. EMS noted initial oxygen saturation of 85% on room air which they improved with 4 L/min nasal cannula up to 98%. Tachypneic at 24 breaths/min. Denies any chest pain denies any abdominal pain but has been vomiting for the last 2days. She says that she was recently hospitalized at [facility] and had to have lots of fluid removed, which may represent aggressive diuresis. She also has a history of COPD. Significant bilateral lower extremity edema without cellulitis. Further review of systems limited by acuity. Patient was met by me immediately upon arrival in the resuscitation bay. Nursing Notes were reviewed. Limitations to history: None Outside historians: EMS REVIEW OF SYSTEMS Review of Systems Pertinent positives and negatives as per HPI PAST MEDICAL HISTORY Past Medical History: Diagnosis Date Anemia Arthritis Cancer (CMS/HCC) (HCC) Skin arm and leg GERD (gastroesophageal reflux disease) Gout Hypertension Psoriasis SOB (shortness of breath) Thyroid disease Vertigo SURGICAL HISTORY Past Surgical History: Procedure Laterality Date AORTIC VALVE REPLACEMENT 2018 BLADDER SUSPENSION 2010 w/mesh HERNIA REPAIR 4 times [place], 1979, 2007,2010, 2005 HIATAL HERNIA REPAIR 10/21/2016 lap hiatal hernia, lap [place], upper GI endoscopy, dr. beltran ach HYSTERECTOMY 1998 SKIN CANCER EXCISION SMALL INTESTINE SURGERY 1979 UPPER GASTROINTESTINAL ENDOSCOPY 07/28/2016 CURRENT MEDICATIONS Previous Medications LEVOTHYROXINE (SYNTHROID, LEVOXYL) 125 MCG TABLET Take 125 mcg by mouth daily. LOSARTAN (COZAAR) 50 MG TABLET take 1/2 tablet by mouth once daily METOPROLOL TARTRATE (LOPRESSOR) 25 MG TABLET 12.5 mg. ALLERGIES Patient has no known allergies. FAMILY HISTORY Family History Problem Relation Name Age of Onset Hypertension Mother Colon cancer Neg Hx Hypertension Father SOCIAL HISTORY Social History Socioeconomic History Marital status: Tobacco Use Smoking status: Never Smokeless tobacco: Never Substance and Sexual Activity Alcohol use: No Drug use: No SCREENINGS PHYSICAL EXAM ED Triage Vitals Temp Pulse Resp BP -- -- -- -- SpO2 Temp src Heart Rate Source Patient Position -- -- -- -- BP Location FiO2 (%) -- -- Physical Exam General: Ill-appearing elderly female lying Semi-Charles's in bed. Morbidly obese. Dyspneic. HENT: Head NCAT, EOMI with no erythema, swelling or discharge. Oropharyngeal mucus membranes moist,pink, no exudate Neck: Full ROM, supple, no rigidity Cardio: Heart rate upper limit of normal, nl s1 s2 III/ systolic murmur loudest in the aortic region, extremities warm, dry, well perfused, 2+ bilateral lower extremity pitting edema Lungs: Bibasilar Rales, diminished lung sounds in bilateral bases and bilateral middle lung omalley.Scattered wheezing in bilateral apices. Tachypneic, subtle intercostal muscle retractions no sternocleidomastoid retractions. SaO2 92% on room air upon arrival to the ED. Abdomen: Soft, NT, ND, non-rigid, BS x 4 hypoactive. Morbidly obese. No flank pain to palpation bilaterally. No CVA tenderness to palpation bilaterally. Skin: Warm, dry, pink, no rashes, bruising, or lacerations, no petechiae, no purpura. No cellulitisbilateral lower extremities. Neuro: Alert, oriented, able to answer simple questions and follow simple commands. DIAGNOSTIC RESULTS RADIOLOGY (Per Emergency Physician): Interpretation per the Radiologist below, if available at the time of this note: CT abdomen pelvis w contrast Final Result Diffuse bladder wall thickening and mild surrounding fat stranding suggestive of cystitis. There isurothelial thickening and hyperenhancement bilaterally in the kidneys and proximal ureters suggestive of ascending upper urinary tract infection. Patchy cortical hypoenhancement in the right upper kidney is also concerning for potential associated pyelonephritis. Extensive atrophy and cortical scarring of the left kidney may be related to prior infections or vascular compromise. Report Dictated on Electronically Signed By: Kei Guzman DR Electronically Signed Date/Time: 09/08/2022 8:17 PM EDT XR chest 1 view Final Result Cardiomegaly with median sternotomy changes. Question mild pulmonary edema. Low lung volumes. Report Dictated on Electronically Signed By: Bárbara Vinson MD Electronically Signed Date/Time: 09/08/2022 6:45 PM EDT LABS: Labs Reviewed CBC WITH AUTO DIFFERENTIAL - Abnormal Result Value Auto WBC 7.9 RBC 4.45 Hemoglobin 13.5 Hematocrit 40.6 MCV 91.2 MCH 30.3 MCHC 33.3 RDW 13.9 Platelets 157 MPV 12.3 Neutrophils Relative 79.4 Lymphocytes Relative 8.9 (*) Monocytes Relative 10.5 (*) Eosinophils Relative 0.4 (*) Basophils Relative 0.4 Immature Grans % 0.4 (*) Neutrophils Absolute 6.3 Lymphocytes Absolute 0.7 (*) Monocytes Absolute 0.8 Eosinophils Absolute 0.0 Basophils Absolute 0.0 Immature Grans Absolute 0.0 COMPREHENSIVE METABOLIC PANEL - Abnormal SODIUM 133 (*) POTASSIUM 4.7 CHLORIDE 101 CARBON DIOXIDE 24 ANION GAP 8 UREA NITROGEN 23 (*) CREATININE 1.31 (*) GLUCOSE 156 (*) CALCIUM 8.8 AST (SGOT) 27 ALT 21 ALKALINE PHOSPHATASE 83 ALBUMIN 3.8 BILIRUBIN, TOTAL 0.5 TOTAL PROTEIN 7.0 eGFR 39.8 (*) NT PRO BNP - Abnormal NT PRO BNP 4,420 (*) SARS-COV-2, FLU A/B, AND RSV COMBO - Normal SARS-CoV-2 Not Detected Respiratory Syncytial Virus Not Detected Influenza A Not Detected Influenza B Not Detected Narrative: Methodology: real-time, RT-PCR The SARS-CoV-2, Flu A/B, and RSV Combo assay is intended for in vitro diagnostic use under the FDA Emergency Use Authorization (EUA). This test has not been FDA cleared or approved. In compliance with this authorization, please visit www.fda.gov/media/771108/download or www.fda.gov/media/349293/download to access the applicable information sheets. LIPASE - Normal LIPASE 38 TROPONIN I - Normal TROPONIN I 0.018 Narrative: Patients with high levels of Biotin oral intake (ie >5 mg/day) may have falsely decreased Troponin levels. LACTIC ACID, SEPSIS WITH REFLEX IF ELEVATED - Normal LACTIC ACID 0.9 URINE CULTURE COMPLETE URINALYSIS All other labs were within normal range or not returned as of this dictation. EMERGENCY DEPARTMENT COURSE and DIFFERENTIAL DIAGNOSIS/MDM: Vitals: Vitals: 09/08/22 1926 09/08/22 1940 09/08/22 19409/08/221944 BP: (!) 144/88 (!) 148/99 132/58 138/56 BP Location: Patient Position: Pulse: 85 71 71 70 Resp: 19 21 (!) 34 15 Temp: SpO2: 97% 97% 94% Weight: Height: Medications cefTRIAXone (Rocephin) 1,000 mg in sodium chloride 0.9 % 50 mL IVPB Mini-Bag Plus (has no administration in time range) furosemide (Lasix) injection 80 mg (80 mg IntraVENous Given 09/08/221956) 86-year-old female presents for hypoxia bilateral lower extremity edema, unable to take her Lasix for 2 days, tachycardic tachypneic diminished breath sounds in bilateral bases, history of aortic valve replacement Concern for CHF exacerbation, aortic valve malfunction, heart attack, COPD exacerbation, pneumonia,less likely pulmonary embolism given obviously abnormal physical examination and lung sounds. We will start patient on 2 L/min nasal cannula as her SaO2 is still slightly low, 80 mg empirical IV Lasix, chest x-ray look for pneumonia versus CHF, CT abdomen pelvis to evaluate for cause of nausea vomiting, repeat EKG to ensure no STEMI (EMS EKG showed no STEMI prior to arrival), patient will requirehospitalization. Low threshold for starting noninvasive positive pressure ventilation/BiPAP on thispatient. MDM elements: The patient presented with chief complaint of shortness of breath, tachypnea, hypoxia. The differential diagnosis associated with this patient's presentation includes complex, see above. Our workup consisted of ordering/reviewing: EKG chest x-ray CT abdomen pelvis full cardiac work-up. To aid in management, I performed an independent interpretation of EKG(s) see below Xray(s) see below CT scan(s) see below Blood work, see below. I also reviewed external records from external history [facility] Last [facility]ogram in 2018 showed ejection fraction of 61%.. The patient will be Admitted. Patient is in agreement with this plan. Patient's care was impacted by Heart disease. PROCEDURES: Unless otherwise noted below, none Procedures I read and interpreted this EKG. My interpretation can be found in the [employer] EKG system. Metabolic panel shows no metabolic acidosis, suboptimal kidney function with a creatinine 1.31. Glucose mildly elevated at 156 Aminotransferases and alkaline phosphatase unremarkable Troponin negative BNP elevated at 4420, suggestive of CHF No lactic acidosis Normal white blood cell count Not anemic Normal platelet count COVID-19 negative RSV negative Influenza negative Chest x-ray shows cardiomegaly with median sternotomy changes. Mild pulmonary edema. Low lung volumes. Interpreted by me. CT abdomen pelvis shows diffuse bladder wall thickening and mild fat stranding suggestive of cystitis and this thickening and hyperenhancement extends superiorly to the kidneys and proximal ureters suggestive of upper urinary tract infection i.e. pyelonephritis which may explain the nausea vomiting. No signs of colitis diverticulitis or bowel obstruction. Interpreted by me. On reassessment, patient's SaO2 is 94% on 2 L/min nasal cannula oxygen. She is diuresing very well with the IV Lasix dose. No indication for noninvasive positive pressure ventilation or endotracheal intubation at this time. Therefore no indication for ICU admission. The pulmonary edema is relatively mild and she is normotensive and not tachycardic, respiratory rate is 15 breaths/min. Mental status is normal. There is no indication for emergent CCU consultation either. However given her advancedage and pulmonary edema and pyelonephritis and nausea vomiting, [facility]ysis and urine culture ordered. These are still pending at the time of admission. IV ceftriaxone also ordered to treat the pyelonephritis. Patient will continue to diurese on IV Lasixand SaO2 is maintained on 2 L/min nasal cannula oxygen. On reassessment, there is no cyanosis no retractions no tachypnea and she speaks in complete sentences. Therefore, after discussing the case with the [facility] hospitalist Dr. Jones, we agreed that she is stable for floor admission. Disposition: [facility] admit Critical Care Attestation: The patient required critical care because the patient was hypoxic with pulmonary edema. Critical care provided to the patient included: Lab review, multiple reassessments of patient, working with consultants, treating pulmonary edema and hypoxia and pyelonephritis, documentation time. Critical care time does not include any procedures performed. I personally saw the patient and independently provided 40 minutes of non-concurrent critical care. CRITICAL CARE TIME FINAL IMPRESSION 1. Dyspnea, unspecified type 2. Hypoxia 3. Leg edema 4. Acute on chronic congestive heart failure, unspecified heart failure type (HCC) 5. Acute pulmonary edema (HCC) 6. Pyelonephritis DISPOSITION Admit 09/08/2022 08:38:37 PM PATIENT REFERRED TO: No follow-up provider specified. DISCHARGE MEDICATIONS: New Prescriptions No medications on file (Comment: Please note this report has been produced using speech recognition software and may contain errors related to that system including errors in grammar, punctuation, and spelling, as well as words and phrases that may be inappropriate. If there are any questions or concerns please feel freeto contact the dictating provider for clarification.) Attila Mcmahon MD (electronically signed) Emergency Medicine Provider Attila Mcmahon MD 09/08/222042 [id number] NoteHNO ID: [id number] Author: Liya Benjamin APRN.[employer] RESEARCHER Service: ? Author Type: Nurse Practitioner Type: Progress Notes Filed: 07/26/2021 1:14 PM Note Text: This note was created using [employer]. Subjective Gonzalo Lei is a 85 year old female. Triage note: Gonzalo Lei is a 85 year old female presenting to the office with the complaint of knots to the ankles. Just noted last night. Was in the ER a couple weeks ago, had pneumonia and was taking antibiotics. Is to see her regular doctor on Wednesday about the pneumonia. At baseline she has swelling, is on lasix and spirolactone. Associated symptoms include bilateral lower extremity edema, fatigue, more short of breath than her baseline- mostly when she is walking. Still has lingering congestion from when she had pneumonia. Has been checking blood pressure at home- has been higher and worried about this. Doesn't want a stroke. Denies chest pain, dizziness, headaches. States her legs have never been this swollen before. OTC not used. Did elevate her feet. Used ice. ALLERGIES No Known Allergies Family History Reviewed Including Cardiac Diseases, Psychiatric Diseases, AND Substance Abuse Problem: Hypertension Relation: Mother Age of Onset: (Not Specified) Problem: Diabetes Relation: Mother Age of Onset: (Not Specified) Problem: Asthma Relation: Mother Age of Onset: (Not Specified) Problem: Stroke Relation: Father Age of Onset: (Not Specified) Problem: other (Enlarged Heart) Relation: Father Age of Onset: (Not Specified) Problem: Cancer Relation: Brother Age of Onset: (Not Specified) Problem: Heart disease Relation: Brother Age of Onset: (Not Specified) Problem: Hypertension Relation: Brother Age of Onset: (Not Specified) Problem: Hypertension Relation: Brother Age of Onset: (Not Specified) Problem: other (Lung Cancer) Relation: Brother Age of Onset: (Not Specified) Social History Tobacco Use Smoking status: Never Smoker Smokeless tobacco: Never Used Tobacco comment: used to smoke 3 packs per day Alcohol use: No Drug use: No Active Ambulatory Problems Aortic valve insufficiency Discharge planning issues Date Noted: 06/04/2017 Scarlet fever Hypothyroid HTN (hypertension) GERD (gastroesophageal reflux disease) Dyslipidemia Anemia Atelectasis Date Noted: 06/16/2017 Acute postoperative pain Date Noted: 06/16/2017 Gout Date Noted: 06/17/2017 Transition of care performed with sharing of clinical summary Date Noted: 06/19/2017 Paroxysmal atrial fibrillation (HCC) Date Noted: 06/20/2017 Sinus bradycardia Date Noted: 06/30/2017 Resolved Ambulatory Problems Preoperative testing Date Noted: 06/04/2017 On mechanically assisted ventilation (HCC) Date Noted: 06/15/2017 Cardiac insufficiency following cardiac surgery Date Noted: 06/16/2017 Postoperative hypotension Date Noted: 06/16/2017 Stress hyperglycemia Date Noted: 06/16/2017 Hypervolemia Date Noted: 06/17/2017 Past Medical History: No date: CHF (congestive heart failure) ([facility]) No date: [place] (myocardial infarction) ([facility]) No date: Syncope Review of Systems Constitutional: Positive for fatigue. HENT: Negative. Eyes: Negative. Respiratory: Positive for cough and shortness of breath. Cardiovascular: Positive for leg swelling. Gastrointestinal: Negative. Endocrine: Negative. Genitourinary: Negative. Musculoskeletal: Negative. Skin: Negative. Neurological: Negative. Hematological: Negative. Objective BP 155/75 Pulse (!) 55 Temp 36.6 ?C (97.8 ?F) (Oral) Resp 20 SpO2 96% Physical Exam Constitutional: General: She is awake. She is not in acute distress. Appearance: She is not toxic-appearing or diaphoretic. Cardiovascular: Rate and Rhythm: Bradycardia present. Rhythm irregular. Pulmonary: Effort: Pulmonary effort is normal. Musculoskeletal: Right lower le+ Pitting Edema present. Left lower le+ Pitting Edema present. Neurological: Mental Status: She is alert. Psychiatric: Behavior: Behavior is cooperative. Assessment and Plan (R60.0) Bilateral lower extremity edema (primary encounter diagnosis) Plan: CONSULT TO EMERGENCY MEDICINE Bilateral lower extremity edema is worse now than her baseline. Shortness of breath increased now with exertion. Recommending an ER evaluation for a higher level of evaluation. Left in stable condition with brother who will drive her to the ER now, [facility]06-18-2022 Instructions* Patient Instructions* Liya Benjamin APRN.CNP - 07/26/2021 1:07 PM EDT (R60.0) Bilateral lower extremity edema (primary encounter diagnosis) Plan: CONSULT TO EMERGENCY MEDICINE Bilateral lower extremity edema is worse now than her baseline. Shortness of breath increased now with exertion. Recommending an ER evaluation for a higher level of evaluation. [facility] History of Present illness Narrative* Liya Benjamin APRN.CNP - 07/26/2021 12:49 PM EDT This note was created using [employer]. Subjective Gonzalo Lei is a 85 year old female. Triage note: Gonzalo Lei is a 85 year old female presenting to the office with the complaint of knots to the ankles. Just noted last night. Was in the ER a couple weeks ago, had pneumonia and was taking antibiotics. Is to see her regular doctor on Wednesday about the pneumonia. At baseline she has swelling, is on lasix and spirolactone. Associated symptoms include bilateral lower extremity edema, fatigue, more short of breath than herbaseline- mostly when she is walking. Still has lingering congestion from when she had pneumonia. Has been checking blood pressure at home- has been higher and worried about this. Doesn't want a stroke. Denies chest pain, dizziness, headaches. States her legs have never been this swollen before. OTC not used. Did elevate her feet. Used ice. ALLERGIES No Known Allergies Family History Reviewed Including Cardiac Diseases, Psychiatric Diseases, & Substance Abuse Problem: Hypertension Relation: Mother Age of Onset: (Not Specified) Problem: Diabetes Relation: Mother Age of Onset: (Not Specified) Problem: Asthma Relation: Mother Age of Onset: (Not Specified) Problem: Stroke Relation: Father Age of Onset: (Not Specified) Problem: other (Enlarged Heart) Relation: Father Age of Onset: (Not Specified) Problem: Cancer Relation: Brother Age of Onset: (Not Specified) Problem: Heart disease Relation: Brother Age of Onset: (Not Specified) Problem: Hypertension Relation: Brother Age of Onset: (Not Specified) Problem: Hypertension Relation: Brother Age of Onset: (Not Specified) Problem: other (Lung Cancer) Relation: Brother Age of Onset: (Not Specified) Social History Tobacco Use Smoking status: Never Smoker Smokeless tobacco: Never Used Tobacco comment: used to smoke 3 packs per day Alcohol use: No Drug use: No Active Ambulatory Problems Aortic valve insufficiency Discharge planning issues Date Noted: 06/04/2017 Scarlet fever Hypothyroid HTN (hypertension) GERD (gastroesophageal reflux disease) Dyslipidemia Anemia Atelectasis Date Noted: 06/16/2017 Acute postoperative pain Date Noted: 06/16/2017 Gout Date Noted: 06/17/2017 Transition of care performed with sharing of clinical summary Date Noted: 06/19/2017 Paroxysmal atrial fibrillation (HCC) Date Noted: 06/20/2017 Sinus bradycardia Date Noted: 06/30/2017 Resolved Ambulatory Problems Preoperative testing Date Noted: 06/04/2017 On mechanically assisted ventilation (HCC) Date Noted: 06/15/2017 Cardiac insufficiency following cardiac surgery Date Noted: 06/16/2017 Postoperative hypotension Date Noted: 06/16/2017 Stress hyperglycemia Date Noted: 06/16/2017 Hypervolemia Date Noted: 06/17/2017 Past Medical History: No date: CHF (congestive heart failure) ([facility]) No date: [place] (myocardial infarction) ([facility]) No date: Syncope Review of Systems Constitutional: Positive for fatigue. HENT: Negative. Eyes: Negative. Respiratory: Positive for cough and shortness of breath. Cardiovascular: Positive for leg swelling. Gastrointestinal: Negative. Endocrine: Negative. Genitourinary: Negative. Musculoskeletal: Negative. Skin: Negative. Neurological: Negative. Hematological: Negative. Objective BP 155/75 Pulse (!) 55 Temp 36.6 C (97.8 F) (Oral) Resp 20 SpO2 96% Physical Exam Constitutional: General: She is awake. She is not in acute distress. Appearance: She is not toxic-appearing or diaphoretic. Cardiovascular: Rate and Rhythm: Bradycardia present. Rhythm irregular. Pulmonary: Effort: Pulmonary effort is normal. Musculoskeletal: Right lower le+ Pitting Edema present. Left lower le+ Pitting Edema present. Neurological: Mental Status: She is alert. Psychiatric: Behavior: Behavior is cooperative. Assessment and Plan (R60.0) Bilateral lower extremity edema (primary encounter diagnosis) Plan: CONSULT TO EMERGENCY MEDICINE Bilateral lower extremity edema is worse now than her baseline. Shortness of breath increased now with exertion. Recommending an ER evaluation for a higher level of evaluation. Left in stable condition with brother who will drive her to the ER now, [facility]. documented in this [facility] History of Past illness Narrative* Problem Noted Date Resolved Date Hypervolemia 06/17/2017 06/20/2017 Overview: A/P: Net positive 1450 since OR. CXR with increased vascular markings. Continue diuresis. Cardiac insufficiency following cardiac surgery 06/16/2017 06/17/2017 Overview: 06/16/2017 Wean epinephrine infusion as tolerated. Postoperative hypotension 06/16/20172017 Overview: 06/16/2017 Wean phenylephrine infusion for MAP of 65 mmHg. Stress hyperglycemia 06/16/2017 06/18/2017 Overview: A/P: Transitioning to SSI for goal glycemic control <180. On mechanically assisted ventilation 06/15/2017 06/17/2017 Overview: Requiring post op ventilation - will assure stability and then WTE Preoperative testing 06/04/2017 06/18/2017 Overview: Images from the original note were not included. [facility] PRE-OP CHECKLIST Surgeon: Chato Lux M.D. Informed Consent Completed: Yes (4/6) STS Score: 4.618 CAD: No Is intended procedure a CABG: No - is a beta ciara ordered? Yes (previously prescribed) H & P completed: Yes PA/LAT: Completed CTA: Completed MRI: N/A LE US: N/A Cath: Yes (outside)- reviewed: NO Echo:Completed EKG: Completed EF %: 60 PI's: N/A Carotid: N/A Mapping: N/A Dental: EDENTULOUS PFT's: Completed UA: Completed HCG:N/A ABO/ABO Confirmed: Yes Blood ordered: No SA Swab: Yes - results: + STAPH, - MRSA Last Dose of Anticoagulation: Baby ASA on 06/10 Op Note: N/A Pacemaker Check: N/A Consults: None (Pulmonary not needed per Dr. Maci Driscoll) DM: No Cardiac Surgical prep: N/A SIGNATURE: Cindy Hill APRN.FIELD [employer] RESEARCHER CHECKED BY: LIA DATE of SERVICE: 06/04/2017 TIME of SERVICE: 4:52 PM documented as of this encounter (statuses as of 07/26/2021) [facility] Evaluation note* Diagnosis Onset Date Resolution Status Essential hypertension chron ic History of aortic valve repl acement with bioprosthetic valve June 15, 2017 chronic Non-ischemic cardiomyopathy [facility] Work Phone: Evaluation + Plan note Future Appointments Appointment Date:03/04/2021 02:45:00 PM Scheduled Provider:DIVINA SMART DO Location:[facility] Appointment Type: OV [facility] Evaluation + Plan note Future Appointments Appointment Date:06/30/2021 10:30:00 AM Scheduled Provider:DIVINA SMART DO Location:[facility] Appointment Type: OV Future Scheduled Tests Laboratory* Microalbumin Level Urine 04/01/21 [facility] Evaluation + Plan note Future Appointments Appointment Date:01/08/2022 02:00:00 PM Scheduled Provider:DIVINA SMART DO Location:[facility] Appointment Type: OV Follow Up Future Scheduled Tests Laboratory* Microalbumin Level Urine 04/01/21 [facility] evaluation + Plan note Future Appointments Appointment Date:02/04/2023 01:30:00 PM Scheduled Provider:DIVINA SMART DO Location:[facility] Appointment Type:PC OV Future Scheduled Tests Laboratory* Albumin/Creatinine Ratio, Random Urine 08/10/22 [facility] Evaluation + Plan note Future Appointments Appointment Date:02/15/2023 01:00:00 PM Scheduled Provider:LUIZ PEREIRA Location:[facility] Appointment Type:PC OV Future Scheduled Tests Laboratory* Thyroid Stimulating Hormone 03/24/23 * Free T4 03/24/23 Radiology* CT Angiography Chest w/ Contrast 02/10/23 [facility] evaluation + Plan note Future Appointments Appointment Date:02/15/2023 01:00:00 PM Scheduled Provider:LUIZ PEREIRA Location:[facility] Appointment Type:PC OV Appointment Date:02/15/2023 01:30:00 PM Scheduled Provider: Location:[facility] Appointment Type:CT Angiography Chest w/ Contrast Future Scheduled Tests Laboratory* Basic Metabolic Panel 02/18/23 * Thyroid Stimulating Hormone 03/24/23 * Free T4 03/24/23 Radiology* CT Angiography Chest w/ Contrast 02/15/23 [facility] evaluation + Plan note Future Appointments Appointment Date:05/17/2023 10:30:00 AM Scheduled Provider:LUIZ PEREIRA Location:[facility] Appointment Type:PC OV Future Scheduled Tests Laboratory* Basic Metabolic Panel 02/18/23 * Thyroid Stimulating Hormone 03/24/23 * Free T4 03/24/23 * Lipid Profile 03/31/23 * Complete Metabolic Panel 10/20/23 [facility] evaluation + Plan note Future Appointments Appointment Date:10/18/2023 01:30:00 PM Scheduled Provider:LUIZ PEREIRA Location:[facility] Appointment Type:PC OV Future Scheduled Tests Laboratory* Basic Metabolic Panel 02/18/23 * Thyroid Stimulating Hormone 03/24/23 * Thyroid Stimulating Hormone 10/17/23 * Free T4 03/24/23 * Lipid Profile 03/31/23 * Complete Metabolic Panel 10/20/23 [facility] evaluation + Plan note Future Appointments Appointment Date:10/18/2023 01:30:00 PM Scheduled Provider:LUIZ PEREIRA Location:[facility] Appointment Type:PC OV Future Scheduled Tests Laboratory* Basic Metabolic Panel 02/18/23 * Thyroid Stimulating Hormone 03/24/23 * Free T4 03/24/23 * Lipid Profile 03/31/23 [facility] Evaluation + Plan note Future Appointments Appointment Date:01/17/2024 01:30:00 PM Scheduled Provider:LUIZ PEREIRA Location:[facility] Appointment Type:PC OV Future Scheduled Tests Laboratory* Basic Metabolic Panel 02/18/23 * Thyroid Stimulating Hormone 03/24/23 * Free T4 03/24/23 * Lipid Profile 03/31/23 [facility] Evaluation + Plan note Future Appointments Appointment Date:07/10/2024 01:30:00 PM Scheduled Provider:LUIZ PEREIRA Location:[facility] Appointment Type:PC OV Future Scheduled Tests Laboratory* Albumin/Creatinine Ratio, Random Urine 07/17/24 [facility] evaluation note* Diagnosis Bilateral lower extremity edema- Primary Edema [facility] noteNo assessment information availableWCrystal [facility] Work Phone: Evalufvnzl note* Diagnosis Dyspnea, unspecified type- Primary Dyspnea, unspecified type Hypoxia Hypoxemia Leg edema Edema Acute on chronic congestive heart failure, unspecified heart failure type (HCC) Acute pulmonary edema (HCC) Unspecified acute edema of lung Pyelonephritis Unspecified pyelonephritis Diastolic congestive heart failure, unspecified HF chronicity (HCC) Acute on chronic diastolic (congestive) heart failure (HCC) [facility]* Diagnosis Acute decompensated heart failure (HCC)- Primary Acute decompensated heart failure (HCC) documented in this encounter [facility] note* Diagnosis Closed nondisplaced fracture of phalanx of lesser toe of right foot, unspecified phalanx, initial encounter- Primary documented in this encounter [facility] note* Diagnosis Constipation, unspecified constipation type- Primary documented in this encounter [facility] note* Diagnosis Constipation, unspecified constipation type- Primary Elevated serum creatinine Other nonspecific findings on examination of blood documented in this encounter [facility] note* Diagnosis Constipation, unspecified constipation type- Primary documented in this encounter [facility] course Narrative No data available for this section [facility] Hospital Discharge instructions No data available for this section [facility] Note* ZIA ELMORE MD: SIGN, VERIFY Event Display: VL Venous US/Doppler Both Legs (DVT) [facility] Progress note No data available for this section [facility] Reason for referral (narrative)No reason for referral information availableSan [facility] Work Phone: Summary Purpose Family History No Family History Records Found Relationship Condition Age at Onset Recorded Date/T deirdre mother Hypertension Unknown Diabetes mellitus Unknown father Hypertension Unknown Cardiac disease Unknown Cerebrovascular accident (CVA) Unknown Malignant neoplasm Unknown brother Malignant neoplasm Unknown brother Cerebrovascular accident (CVA) Unknown Advance Directives No Advanced Directives Records Found Advance Directive Response Recorded Date/ Time Advance Directives Yes March 05, 2017 8:56am Living Will Yes August 01, 2020 2:33pm Power of Operations Controller Yes August 01 2:33pm Advance Directive Response Recorded Date/ Time Advance Directives Yes March 05, 2017 8:56am Living Will Yes July 09, 2021 2 :20pm Power of Operations Controller Yes July 09, 2021 2:20pm Documents on File Type Date Recorded 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 Advance Directive(s) 06/16/2017 10:38 PM Advance Directive(s) 06/07/2017 12:22 PM s canned in 06/07 Advance Directive(s) 06/07/2017 12:20 PM Advance Directive(s) 06/02/2017 12:09 PM Advance Directive Response Recorded Date/ Time Name of Medical Power of Operations Controller FLORIAN RIVERA July 09, 2021 2:20pm Name of Medical Power of Operations Controller Florian July 26, 2021 2:20pm Advance Directives Yes March 05, 2017 8:56am Living Will Yes July 26, 2021 2:20pm Power of Operations Controller Yes July 26 2:20pm Advance Directive Response Recorded Date/ Time Name of Medical Power of Operations Controller FLORIAN RIVERA July 09, 2021 2:20pm Name of Medical Power of Operations Controller Florian July 26, 2021 2:20pm Name of Medical Power of Operations Controller TONY JOHNSON August 14, 2021 5:07pm Advance Directives Yes March 05, 2017 8:56am Living Will Yes August 14, 2021 5 :07pm Power of Operations Controller Yes August 14, 2021 5:07pm Advance Directive Response Recorded Date/ Time Name of Medical Power of Operations Controller FLORIAN RIVERA July 09, 2021 2:20pm Name of Medical Power of Operations Controller Florian July 26, 2021 2:20pm Name of Medical Power of Operations Controller TONY JOHNSON August 14, 2021 5:07pm Name of Medical Power of Operations Controller brothazael September 11, 2021 2:32pm Advance Directives Yes March 05, 2017 8:56am Living Will Yes September 11, 2021 2:32pm Power of Operations Controller Yes September 11 2:32pm Advance Directive Response Recorded Date/ Time Advance Directives Yes March 05, 2017 8:56am Living Will No July 14, 2022 1 2:26pm Power of Operations Controller No July 14, 2022 12:26pm Latest Code Status on File Code Status Date Activated Date Inactivated Comments Full Code 09/08/2022 11:18 PM Latest Code Status on File Code Status Date Activated Date Inactivated Comments DNR-CCA 09/09/2022 12:08 PM 09/12/2022 3:41 PM Question Answer Comments ICU transfer: Yes Intubation: No Code Status History Code Status Date Activated Date Inactivated Comments Full Code 09/08/2022 11:18 PM 09/09/2022 12:08 PM Advance Directive Response Recorded Date/ Time Name of Medical Power of Operations Controller rosita rivera September 02, 2022 12:34pm Advance Directives Yes March 05, 2017 8:56am Living Will Yes September 02, 2022 12:34pm Power of Operations Controller Yes September 02 12:34pm Latest Code Status on File Code Status Date Activated Date Inactivated Comments DNR-CCA 12/24/2022 3:16 AM Question Answer Comments ICU transfer: Yes Intubation: No Code Status History Code Status Date Activated Date Inactivated Comments DNR-CCA 09/09/2022 12:08 PM 09/12/2022 3:41 PM Question Answer Comments ICU transfer: Yes Intubation: No Full Code 09/08/2022 11:18 PM 09/09/2022 12:08 PM Latest Code Status on File Code Status Date Activated Date Inactivated Comments DNR-CCA 12/24/2022 3:16 AM 12/27/2022 5:43 PM Question Answer Comments ICU transfer: Yes Intubation: No Code Status History Code Status Date Activated Date Inactivated Comments DNR-CCA 09/09/2022 12:08 PM 09/12/2022 3:41 PM Question Answer Comments ICU transfer: Yes Intubation: No Full Code 09/08/2022 11:18 PM 09/09/2022 12:08 PM Advance Directive Response Recorded Date/ Time Name of Medical Power of Operations Controller ANN BUTLER AN February 23, 2023 4:37pm Advance Directives Yes March 05, 2017 7:56am Living Will Yes February 23 4:37pm Power of Operations Controller Yes February 23, 2023 4:37pm Name of Medical Power of Operations Controller rosita obrienlman brother December 20, 2022 5:34pm Advance Directive Response Recorded Date/ Time Name of Medical Power of Operations Controller ANN BUTLER AN February 23, 2023 5:37pm Name of Medical Power of Operations Controller Rosita Rivera May 18, 2023 11:16pm Advance Directives Yes March 05, 2017 8:56am Living Will Yes Sharmaine 9th, 2024 11:16pm Power of Operations Controller Yes May 17 11:16pm Date Activated Date Inactivated Comments 12/24/2022 3:16 AM 12/27/2022 5:43 PM Question Answer Comments ICU transfer: Yes Intubation: No Date Activated Date Inactivated Comments 09/09/2022 12:08 PM 09/12/2022 3:41 PM Question Answer Comments ICU transfer: Yes Intubation: No Date Activated Date Inactivated Comments 09/08/2022 11:18 PM 09/09/2022 12:08 PM Advance Directive Response Recorded Date/ Time Living Will Yes May 18, 2023 11:16pm Do you have a Healthcare Power of Operations Controller? Yes May 18, 2023 11:16pm Advance Directives Yes March 05, 2017 8:56am Hospital Course Note Hospitalist Discharge Summar Eladio Lei : 1935 DATE: 11/14/2017 DISCHARGE DATE: 11/20/2017PRIMARY CARE PHYSICIAN: LULA CHAOODE STATUS: PriorDISCHARGE DIAGNOSES: Active Problems: Cardiomyopathy (HCC) Hypertensive emergency Acute respiratory failure with hypoxia (HCC) Cognitive deficits Nausea Vitamin B12 deficiency Hypothyroidism Aortic valve replaced Atrial fibrillation (HCC)Resolved Problems: * No resolved hospital problems. *HOSPITAL COURSE: Pt is a 82/F w/ PMHx of severe s/p AVR 2017, last echo10/2016 EF 64%. Hx of psoriasis, ?skin cancer in arm and leg, hypothyroidism. Ptis transferred from [facility] intubated. No family members present. Historymostly obtained from chart.?She initially presented in [facility] ED for hypertension with associatedexertional SOB and leg swelling L>R. Her home meds include lasix and hydralazinewhich she took prior to arrival at ED. In ED BP 211/32, HR 77, RR 22, T 37.1, onroom air. CXR showed L lower lobe infilt (more content not included)... Chief Complaint and Reason for Visit Chief Complaint 9 MO F/U (DJN PT) Nonrheumatic aortic (valve) stenosis with insuffic Reason for Visit Essential hypertensi on 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-ischemic cardiomyopathy Chief Complaint 9 MO F/U (DJN PT) Nonrheumatic aortic (valve) stenosis with insuffic GENERAL ILLNESS Reason for Visit Essential hypertensi on 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-ischemic cardiomyopathy Chief Complaint 9 MO F/U (DJN PT) Nonrheumatic aortic (valve) stenosis with insuffic GENERAL ILLNESS EDEMA Reason for Visit Essential hypertensi on 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-ischemic cardiomyopathy Chief Complaint 9 MO F/U (DJN PT) Nonrheumatic aortic (valve) stenosis with insuffic GENERAL ILLNESS EDEMA HYPERTENSION Reason for Visit Essential hypertensi on 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-ischemic cardiomyopathy Chief Complaint GENERAL ILLNESS EDEMA HYPERTENSION weakness Chief Complaint 6 M FU UTI Reason for Visit Essential hypertensi on 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-ischemic cardiomyopathy Chief Complaint UTI near syncope S/P [facility] 09/11 (SCANNED) Reason for Visit Essential hypertensi on 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-ischemic cardiomyopathy Chief Complaint diarrhea 1 Y FU Constiptaion Reason for Visit Essential hypertensi on 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-ischemic cardiomyopathy Chief Complaint 1 Y FU Constiptaion htn, started new meds, doesnt feel right Reason for Visit Essential hypertensi on 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-ischemic cardiomyopathy Chief Complaint Admit Date 1 Y FU July 25, 2024 1:01 pm Reason for Referral Specialty Diagnoses / Procedures Referred By Margarita pineda Referred To Contact Duran Laboy DO [address] [place] [address] Referral ID Status Reason Start Date Expiration Date Visits Re quested Visits Authorized [id number] Closed 1 1 Specialty Diagnoses / Procedures Referred By Margarita pineda Referred To Contact Emergency Medicine Diagnoses Bilateral lower extremity edema Procedures CONSULT TO EMERGENCY MEDICINE Liya Benjamin APRN.[facility] [address] [employer] [address] [place] [address] Referral ID Status Reason Start Date Expiration Date Visits Requested Visits Authorized [id number] Ref Not Required PCP Requested Referral 07/26/2021 10/24/2021 1 1 Additional Source Comments INFORMATION SOURCE (unrecogn ized section and content) DATE CREATED AUTHOR 08/04/2017 [facility] DATE CREATED AUTHOR AUTHOR'S ORGANIZ ATION 12/23/2017 [facility] DATE CREATED AUTHOR AUTHOR'S ORGANIZ ATION 03/22/2018 [facility] DATE CREATED AUTHOR AUTHOR'S ORGANIZ ATION 07/26/2021 [facility] DATE CREATED AUTHOR AUTHOR'S ORGANIZ ATION 10/13/2023 [facility] ([place]) DATE CREATED AUTHOR AUTHOR'S ORGANIZ ATION 05/09/2024 [facility] DATE CREATED AUTHOR AUTHOR'S ORGANIZ ATION 07/08/2024 [facility] DATE CREATED AUTHOR AUTHOR'S ORGANIZ ATION 07/27/2024 [facility] Care Team (unrecognized sect ion and content) Culinary Intern Relationship Specialty Start Date End Date Divina Smart PCP - General Family Practice 03/30/17 Team Status: Active Member Role Status Dates Dr. Divina Smart DO Family Provider Active Dr. Divina Smart DO Primary Care Provider Active Team Status: Inactive Member Role Status Dates Divina GUAN DO Primary Care Provider, Referrin g Provider Active Cristal Gunter PA, PA Attending Provider Active Team Status: Inactive Member Role Status Dates Dr. Randolph Olivier DO Emergency Provider Active Dr. Divina Smart DO Primary Care Provider Active Culinary Intern Relationship Specialty Start Date End Date Divina Smart DO [address] [place] [address] PCP - General 07/13/16 Culinary Intern Relationship Specialty Start Date End Date Divina Smart DO [address] [place] [id number] PCP - General 07/13/16 Culinary Intern Relationship Specialty Start Date End Date Divina Smart DO [address] [place] [id number] PCP - General 07/13/16 Team Status: Inactive Member Role Status Dates Dr. Divina Smart DO Primary Care Provider, Referri ng Provider Active Cristal Gunter PA, PA Attending Provider Active Team Status: Inactive Member Role Status Dates Dr. Randolph Olivier DO Attending Provider, Emergency P rovider Active Dr. Divina Smart DO Primary Care Provider Active Team Status: Inactive Member Role Status Dates Dr. Divina Smart DO Primary Care Pro vider, Attending Provider, Referring Provider Active Team Status: Inactive Member Role Status Dates Dr. Divina Smart DO Primary Care Provider Active Dr. Luz Maria Newton DO Attending Provider, Emergency P rovider Active Culinary Intern Relationship Specialty Start Date End Date Divina Samrt DO [address] [place] [id number] PCP - General 07/13/16 Culinary Intern Relationship Specialty Start Date End Date Divina Smart DO [address] [place] [id number] PCP - General 07/13/16 Team Status: Inactive Member Role Status Dates Divina GUAN DO Referring Provider Active Dr. Hernan Luna MD Attending Provider Active Dr. Divina Smart DO Primary Care Provider Active Team Status: Inactive Member Role Status Dates Dr. Divina Smart DO Primary Care Provider Active Dr. Aj Pastrana MD Emergency Provider Active Team Status: Inactive Member Role Status Dates Dr. Divina Smart DO Primary Care Provider Active Dr. Nannette Grijalva MD Attending Provider, Emergency Provider Active Culinary Intern Relationship Specialty Start Date End Date Divina Smart DO [address] [place] [id number] PCP - General 07/13/16 Team Status: Inactive Member Role Status Dates Dr. Divina Smart DO Primary Care Provider Active Dr. Aj Pastrana MD Attending Provider, Emergency Provider Active Team Status: Inactive Member Role Status Dates Dr. Divina Smart DO Primary Care Provider Active Dr. Pete Carlson DO Emergency Provider Active Culinary Intern Relationship Specialty Start Date End Date Divina Smart DO [address] [place] [id number] PCP - General 07/13/16 Culinary Intern Relationship Specialty Start Date End Date Divina Smart DO [address] [place] [id number] PCP - General Family Medicine 04/09/24 Team Status: Active Member Role Status Dates Dr. Divina Smart DO Family Provider Active LUIZ PEREIRA NP-Alexi Primary Care Provider Active Team Status: Inactive Member Role Status Dates LUIZ PEREIRA NP-C Primary Care Provider Active Start: July 25, 2024 End: July 25, 2024 LUIZ PEREIRA NP-Alexi Referring Provider Active Start: July 25, 2024 End: July 25, 2024 Dr. Hernan Luna MD Attending Provider Active S tart: July 25, 2024 End: July 25, 2024 Goals (unrecognized section and content) Goals may be documented in a n alternate section Source Comments (unrecognize d section and content) In the event this informatio n is protected by the Federal Confidentiality of Alcohol and Drug Abuse Patient Records regulations: The Federal rules restrict any use of the information to criminally investigate or prosecute any alcohol or drug abuse patient.[facility] Reason for Visit (unrecogniz ed section and content) Reason Comments Edema x1 day Reason Comments Shortness of Breath Specialty Diagnoses / Procedures Referred By Contac t Referred To Contact Diagnoses Acute pulmonary edema (HCC) Leg edema Pyelonephritis Hypoxia Dyspnea, unspecified type Acute on chronic congestive heart failure, unspecified heart failure type (HCC) Procedures . Tariq Jones MD [address] [place] [address] [facility] [address] [facility] [address] [place] [address] Referral ID Status Reason Start Date Expiration Date Visits Re quested Visits Authorized [id number] 1 1 Reason Comments Dizziness Specialty Diagnoses / Procedures Referred By Contac t Referred To Contact Diagnoses Acute decompensated heart failure (HCC) Procedures . Zoltan Uribe DO [address] [place] [address] [address] Cardiac P[facility] [address] [place] [address] Referral ID Status Reason Start Date Expiration Date Visits Re quested Visits Authorized [id number] 1 1 Reason Comments Toe Injury Reason Comments Constipation Reason Comments Constipation Female Dysuria Reason Comments Abdominal Pain Pt states abd pain a nd pressure along the top part of her abdomen. Pt reports she has been taking all her meds. Pt also states R arm pain that she has had for years. Care Team (unrecognized sect ion and content) Care Team Personnel Name: DIVINA SMART DO Position: P4 Physician - Primary Care Med Service: Active Provider Member Role: Primary Care Physician Address: Address: [address] [place] [address] Care Team Related Persons Name: MAR CH Scheduled Active and Recently Administ ered Medications (unrecognized section and content) Medication Order 09/10/2022 09/11/2022 09/12/2022 aluminum & magnesium hydroxide-simethicone (Mylanta) 200-200-20 MG/5ML oral suspension 20 mL (COMPLETED) 20 mL, Oral, Once, On Jaylene 09/10/22 at 1230, For 1 dose 1430 (Not Given - Provider: Heather Shabazz RN - Reason: Medication not available)2020 (Given - Provider: Richard Guevara RN) calcium carbonate (Tums) chewable tablet 500 mg (COMPLETED) 500 mg, Oral, Once, On Wed09/10/22 at 0015, For 1 dose 0016 (Given - Provider: Brandie Keller RN) cefdinir (Omnicef) capsule 300 mg 300 mg, Oral, 2 times daily, First dose (after last modification) on Wed09/11/22 at 1330, For 9 doses, pyelo, Suspected Indication (Select all that apply): Urinary Tract Infection 1717 (Given - Provider: Heather Shabazz RN)222 (Given - Provider: Raysa Trevizo, RN) 1048 (Given - Provider: Heather Shabazz RN) cefTRIAXone (Rocephin) 2,000 mg in sodium chloride 0.9 % 50 mL IVPB Mini-Bag Plus (CANCELED) 2,000 mg, IntraVENous, at 100 mL/hr, Administer over 30 Minutes, Every 24 hours, First dose on Wed09/09/22 at 2300, Mini-Bag Plus bag, Suspected Indication (Select all that apply): Urinary Tract Infection 0028 (Stopped - Provider: Brandie Keller RN)2237 (New Bag - Provider: Richard Guevara RN)2307 (Stopped - Provider: Richard Guevara RN) enoxaparin (Lovenox) syringe 30 mg 30 mg, SubCUTAneous, Every 12 hours scheduled (2 times per day), First dose on Wed09/08/22 at 2330, Indication of Use: Prophylaxis-DVT/PE 0824 (Given - Provider: Heather Shabazz RN)2020 (Given - Provider: Richard Guevara RN) 0841 (Given - Provider: Heather Shabazz, DRE)222 (Given - Provider: Raysa Trevizo, DRE) 1048 (Given - Provider: Heather Shabazz, DRE) furosemide (Lasix) injection 40 mg (CANCELED) 40 mg, IntraVENous, 2 times daily, First dose on Wed09/09/22 at 0900 0824 (Given - Provider: Heather Shabazz, DRE) furosemide (Lasix) tablet 20 mg 20 mg, Oral, Daily, First dose (after last modification) on 09/12/23 at 0915 1048 (Given - Provider: Heather Shabazz, DRE) furosemide (Lasix) tablet 40 mg (CANCELED) 40 mg, Oral, Daily, First dose on Wed09/11/22 at 0900 0841 (Given - Provider: Heather Shabazz, DRE) 0900 (Due) levothyroxine (Synthroid, Levoxyl) tablet 125 mcg 125 mcg, Oral, Daily, First dose on Wed09/09/22 at 0700, Tube feeding (TF) interaction, obtain physician order to manage, recommend holding TF for 30 minutes before and after dose. 0541 (Given - Provider: Brandie Keller RN) 0601 (Given - Provider: Richard Guevara, DRE) 0700 (Given - Provider: Raysa Trevizo, DRE) losartan (Cozaar) tablet 25 mg 25 mg, Oral, Daily, First dose on Wed09/09/22 at 0900 0824 (Given - Provider: Heather Shabazz RN) 0841 (Given - Provider: Heather Shabazz RN) 1048 (Given - Provider: Heather Shabazz RN) metoprolol tartrate (Lopressor) tablet 12.5 mg 12.5 mg, Oral, 2 times daily, First dose on Wed09/08/22 at 2330 0824 (Given - Provider: Heather Shabazz RN)2020 (Given - Provider: Richard Guevara, DRE) 0841 (Given - Provider: Heather Shabazz, DRE)222 (Given - Provider: Raysa Trevizo, RN) 1048 (Given - Provider: Heather Shabazz, DRE) pantoprazole (ProtoNix) EC tablet 40 mg 40 mg, Oral, Daily before lunch, First dose on Jaylene 09/10/22 at 1230, Do not crush, chew, or split. 1317 (Given - Provider: Heather Shabazz RN) 1156 (Given - Provider: Heather Shabazz RN) 1048 (Given - Provider: Heather Shabazz RN) PRN Medication Order 09/10/2022 09/11/2022 09/12/2022 acetaminophen (Tylenol) suppository 650 mg(Linked Group 1) 650 mg, Rectal, Every 6 hours PRN, mild pain (1-3), fever, For temp greater than 100.4 F (38 C), Starting on Wed09/08/22 at 2317, Administer if oral route cannot be used. Maximum dose of acetaminophen is 4000 mg from all sources in 24 hours. 0245 (See Alternative - Provider: Raysa Trevizo RN) acetaminophen (Tylenol) tablet 650 mg(Linked Group 1) 650 mg, Oral, Every 6 hours PRN, mild pain (1-3), fever, For temp greater than 100.4 F (38 C), Starting on Wed09/08/22 at 2317, Maximum dose of acetaminophen is 4000 mg from all sources in 24 hours. 0245 (Given - Provider: Raysa Trevizo RN) aluminum & magnesium hydroxide-simethicone (Mylanta) 200-200-20 MG/5ML oral suspension 20 mL 20 mL, Oral, Every 6 hours PRN, indigestion, heartburn, Starting on Wed09/11/22 at 0954 calcium carbonate (Tums) chewable tablet 1,000 mg (CANCELED) 1,000 mg, Oral, 3 times daily PRN, indigestion, heartburn, Starting on Wed09/10/22 at 0509 0541 (Given - Provider: Brandie Keller RN)1601 (Given - Provider: Heather Shabazz RN) 0413 (Given - Provider: Richard Guevara RN) ipratropium-albuterol (Duo-Neb) 0.5-2.5 mg/3 mL nebulizer solution 3 mL 3 mL, Nebulization, 4 times daily PRN, shortness of breath, Starting on Wed09/08/22 at 2327 melatonin tablet 5 mg 5 mg, Oral, Nightly PRN, sleep, Starting on Wed09/10/22 at 0005 0016 (Given - Provider: Brandie Keller RN) ondansetron (Zofran) injection 4 mg(Linked Group 2) 4 mg, IntraVENous, Every 6 hours PRN, nausea, vomiting, Starting on Wed09/08/22 at 2317, Administer if oral route cannot be used. 0019 (Given - Provider: Brandie Keller RN)0824 (Given - Provider: Heather Shabazz, DRE) ondansetron ODT (Zofran-ODT) disintegrating tablet 4 mg(Linked Group 2) 4 mg, Oral, Every 8 hours PRN, nausea, vomiting, Starting on Wed09/08/22 at 2317, Patient should allow tablet to dissolve on tongue. Do not remove from blister pack until just before administering. 0019 (See Alternative - Provider: Brandie Keller RN)0824 (See Alternative - Provider: Heather Shabazz, DRE) perflutren lipid microspheres (Definity) injection 1.65 mg 1.65 mg, IntraVENous, IMG once PRN, other, Suboptimal echo image, Starting on Jaylene 09/10/22 at 0815, For 1 dose, CV Procedural Medications, Administer up to 1.65 mg via slow IVP for suboptimal echocardiogram enhancement. May administer a calculated dose or diluted 8.5 mL of 0.9% sodium chloride for a total volume of 10 mL. May administer as divided doses to reach optimal image enhancement polyethylene glycol (PEG) 3350 (Miralax) packet 17 g 17 g, Oral, Daily PRN, constipation, Starting on Wed09/08/22 at 2317, 1st line for treatment of constipation - give scheduled if no bowel movement in past 24 hours. Linked Groups Order Group 1: acetaminophen (Tylenol) tablet 650 mgJump to med 650 mg, Oral, Every 6 hours PRN, mild pain (1-3), fever, For temp greater than 100.4 F (38 C), Starting on Wed09/08/22 at 2317
Maximum dose of acetaminophen is 4000 mg from all sources in 24 hours.
Or acetaminophen (Tylenol) suppository 650 mgJump to med 650 mg, Rectal, Every 6 hours PRN, mild pain (1-3), fever, For temp greater than 100.4 F (38 C), Starting on Wed09/08/22 at 2317
Administer if oral route cannot be used. Maximum dose of acetaminophen is 4000 mg from all sources in 24 hours.
Group 2: ondansetron ODT (Zofran-ODT) disintegrating tablet 4 mgJump to med 4 mg, Oral, Every 8 hours PRN, nausea, vomiting, Starting on Wed09/08/22 at 2317
Patient should allow tablet to dissolve on tongue. Do not remove from blister pack until just before administering.
Or ondansetron (Zofran) injection 4 mgJump to med 4 mg, IntraVENous, Every 6 hours PRN, nausea, vomiting, Starting on Wed09/08/22 at 2317
Administer if oral route cannot be used.
Scheduled Medication Order 12/25/2022 12/26/2022 12/27/2022 cephalexin (Keflex) capsule 250 mg 250 mg, Oral, 4 times daily, First dose on Wed12/25/22 at 1300, Suspected Indication (Select all that apply): Urinary Tract Infection 1232 (Given - Provider: Alem Mascorro RN)1657 (Given - Provider: Alem Mascorro RN)2036 (Given - Provider: Prosper Collins RN) 0915 (Given - Provider: Kinza Cedillo RN)1413 (Given - Provider: Kinza Cedillo RN)1742 (Given - Provider: Kinza Cedillo RN)203 (Given - Provider: Iveth Silveira RN) 0830 (Given - Provider: Kinza Cedillo RN)1336 (Given - Provider: Kinza Cedillo RN)1700 (Canceled Entry - Provider: Automatic Discharge Provider - Comment: Automatically canceled at discontinue of medication order) enoxaparin (Lovenox) syringe 30 mg 30 mg, SubCUTAneous, Every 12 hours scheduled (2 times per day), First dose on Wed12/24/22 at 0900, Indication of Use: Prophylaxis-DVT/PE 0850 (Given - Provider: Alem Mascorro RN)2036 (Given - Provider: Prosper Collins RN) 0914 (Given - Provider: Kinza Cedillo RN)2030 (Given - Provider: Iveth Silveira RN) 0829 (Given - Provider: Kinza Cedillo RN) furosemide (Lasix) injection 20 mg (CANCELED) 20 mg, IntraVENous, 2 times daily, First dose on Wed12/24/22 at 0900 0841 (Given - Provider: Alem Mascorro RN) furosemide (Lasix) tablet 20 mg 20 mg, Oral, Daily, First dose on Wed12/25/22 at 0945 0945 (Not Given - Provider: Alem Mascorro RN - Reason: Contraindicated - Comment: gave iv) 0913 (Given - Provider: Kinza Cedillo RN) 0829 (Given - Provider: Kinza Cedillo RN) levothyroxine (Synthroid, Levoxyl) tablet 125 mcg 125 mcg, Oral, Daily, First dose on Wed12/24/22 at 0900, Tube feeding (TF) interaction, obtain physician order to manage, recommend holding TF for 30 minutes before and after dose. 0841 (Given - Provider: Alem Mascorro RN) 0913 (Given - Provider: Kinza Cedillo RN) 0829 (Given - Provider: Kinza Cedillo RN) losartan (Cozaar) tablet 25 mg 25 mg, Oral, Daily, First dose on Wed12/24/22 at 0900, Hold for SBP <120 0841 (Not Given - Provider: Alem Mascorro RN - Reason: Contraindicated) 0914 (Given - Provider: Kinza Cedillo RN) 0829 (Given - Provider: Kinza Cedillo RN) pantoprazole (ProtoNix) EC tablet 40 mg 40 mg, Oral, Daily before lunch, First dose on Wed12/24/22 at 1100, Do not crush, chew, or split. 1232 (Given - Provider: Alem Mascorro RN) 1216 (Given - Provider: Kinza Cedillo RN) 1336 (Given - Provider: Kinza Cedillo RN) PRN Medication Order 12/25/2022 12/26/2022 12/27/2022 acetaminophen (Tylenol) suppository 650 mg(Linked Group 1) 650 mg, Rectal, Every 6 hours PRN, mild pain (1-3), fever, For temp greater than 100.4 F (38 C), Starting on Wed12/24/22 at 0314, Administer if oral route cannot be used. Maximum dose of acetaminophen is 4000 mg from all sources in 24 hours. acetaminophen (Tylenol) tablet 650 mg(Linked Group 1) 650 mg, Oral, Every 6 hours PRN, mild pain (1-3), fever, For temp greater than 100.4 F (38 C), Starting on Jaylene 12/24/22 at 0314, Maximum dose of acetaminophen is 4000 mg from all sources in 24 hours. calcium carbonate (Tums) chewable tablet 500 mg 500 mg, Oral, Every 4 hours PRN, indigestion, heartburn, Starting on Wed12/24/22 at 1401 0841 (Given - Provider: Alem Mascorro, DRE) gabapentin (Neurontin) capsule 300 mg 300 mg, Oral, 3 times daily PRN, Leg Pain/cramping, Starting on Wed12/24/22 at 1927 0213 (Given - Provider: Prosper Collins, DRE) ipratropium-albuterol (Duo-Neb) 0.5-2.5 mg/3 mL nebulizer solution 3 mL 3 mL, Nebulization, 4 times daily PRN, shortness of breath, Starting on Wed12/24/22 at 0311 melatonin tablet 5 mg 5 mg, Oral, Nightly PRN, sleep, Starting on Wed12/24/22 at 0312036 (Given - Provider: Prosper Collins, DRE) ondansetron (Zofran) injection 4 mg(Linked Group 2) 4 mg, IntraVENous, Every 6 hours PRN, nausea, vomiting, Starting on Wed12/24/22 at 0314, Administer if oral route cannot be used. 1216 (See Alternative - Provider: Kinza Cedillo, DRE) ondansetron ODT (Zofran-ODT) disintegrating tablet 4 mg(Linked Group 2) 4 mg, Oral, Every 8 hours PRN, nausea, vomiting, Starting on Wed12/24/22 at 0314, Patient should allow tablet to dissolve on tongue. Do not remove from blister pack until just before administering. 1216 (Given - Provider: Kinza Cedillo, DRE) polyethylene glycol (PEG) 3350 (Miralax) packet 17 g 17 g, Oral, Daily PRN, constipation, Starting on Wed12/24/22 at 0314, 1st line for treatment of constipation - give scheduled if no bowel movement in past 24 hours. 0739 (Given - Provider: Kinza Cedillo RN) potassium chloride CR (Klor-Con M10) ER tablet 40 mEq 40 mEq, Oral, Daily PRN, Administer daily for serum potassium <3.5, Starting on Jaylene 12/24/22 at 0314, Best given with food and plenty of water to minimize gastric irritation. Do not crush or chew. Linked Groups Order Group 1: acetaminophen (Tylenol) tablet 650 mgJump to med 650 mg, Oral, Every 6 hours PRN, mild pain (1-3), fever, For temp greater than 100.4 F (38 C), Starting on Jaylene 12/24/22 at 0314, Maximum dose of acetaminophen is 4000 mg from all sources in 24 hours. Or acetaminophen (Tylenol) suppository 650 mgJump to med 650 mg, Rectal, Every 6 hours PRN, mild pain (1-3), fever, For temp greater than 100.4 F (38 C), Starting on Jaylene 12/24/22 at 0314, Administer if oral route cannot be used. Maximum dose of acetaminophen is 4000 mg from all sources in 24 hours. Group 2: ondansetron ODT (Zofran-ODT) disintegrating tablet 4 mgJump to med 4 mg, Oral, Every 8 hours PRN, nausea, vomiting, Starting on Jyalene 12/24/22 at 0314, Patient should allow tablet to dissolve on tongue. Do not remove from blister pack until just before administering. Or ondansetron (Zofran) injection 4 mgJump to med 4 mg, IntraVENous, Every 6 hours PRN, nausea, vomiting, Starting on Jaylene 12/24/22 at 0314, Administer if oral route cannot be used. Scheduled Medication Order 08/19/2023 08/20/2023 08/21/2023 losartan (Cozaar) tablet 50 mg (COMPLETED) 50 mg, Oral, Once, On 08/21/23 at 0845, For 1 dose 0854 (Given - Provid er: Radha Nichole RN - Comment: Patient states did not take her BP meds this am) sodium phosphate (Fleets) 7-19 GM/118ML enema 133 mL (COMPLETED) 133 mL (1 enema), Rectal, Once, On 08/21/23 at 1045, For 1 dose 1051 (Given - Provid er: Radha Nichole, DRE) Scheduled Medication Order 04/07/2024 04/08/2024 04/09/2024 sodium chloride 0.9 % bolus 500 mL (COMPLETED) 500 mL, IntraVENous, at 500 mL/hr, Administer over 1 Hours, Once, On Wed04/09/24 at 1740, For 1 dose 1746 (New Bag - Prov ider: Brooke Blank, DRE)1907 (Stopped - Provider: Brooke Blank, RN) Scheduled Medication Order 05/06/2024 05/07/2024 05/08/2024 HYDROmorphone (Dilaudid) injection 0.5 mg (COMPLETED) 0.5 mg, IntraVENous, Once, On 05/08/24 at 1020, For 1 dose, If oral and injectable narcotics ordered, use oral first and only use injectable if oral is ineffective or cannot take oral. Do Not give oral and injectable within 1 hour of each other unless specifically ordered. 1047 (Given - Provid er: Pancho Anderson RN) ondansetron (Zofran) injection 4 mg (COMPLETED) 4 mg, IntraVENous, Once, On 05/08/24 at 1020, For 1 dose 1048 (Given - Provid er: Pancho Anderson RN) ondansetron (Zofran) injection 4 mg (COMPLETED) 4 mg, IntraVENous, Once, On 05/08/24 at 1220, For 1 dose 1221 (Given - Provid er: Meggan Roberts, EMT) sodium chloride 0.9 % bolus 500 mL (COMPLETED) 500 mL, IntraVENous, at 500 mL/hr, Administer over 1 Hours, Once, On 05/08/24 at 1020, For 1 dose 1047 (New Bag - Prov ider: Pancho Anderson RN)1147 (Due: Stopped - Provider: Pancho Anderson RN) PRN Medication Order 05/06/2024 05/07/2024 05/08/2024 iopamidol (Isovue-370) 76 % injection 75 mL (COMPLETED) 75 mL, IntraVENous, IMG once PRN, contrast, Starting on 05/08/24 at 1021, For 1 dose 1142 (Given - Provid er: Chandler Singh) FOR RECORDS PERTAINING TO PATIENTS WHO ARE OR HAVE BEEN ENROLLED IN A CHEMICAL DEPENDENCY/SUBSTANCEABUSE PROGRAM, SOME INFORMATION MAY BE OMITTED. This clinical summary was aggregated from multiple sources. Caution should be exercised in using it in the provision of clinical care. This summary normalizes information from multiple sources, and as a consequence, information in this document may materially change the coding, format and clinical context of patient data. In addition, data may be omitted in some cases. CLINICAL DECISIONS SHOULD BE BASED ON THE PRIMARY CLINICAL RECORDS. [employer] [facility]. provides no warranty or guarantee of the accuracy or completeness of information in this document.
[2024-08-20 12:40] LABS: Mucous, Urine 0 SEEN /hpf (<or=2+); Red Blood Cells-Urine 0 SEEN /hpf (0-5); Squamous Epithelial Cells - UA 0 SEEN /hpf (5-10)
[2024-08-20 12:42] LABS: Color, Urine Yellow (Yellow); Glucose, Dipstick Normal (Normal); Ketone-Dipstick Negative (Negative); Leukocyte Esterase-Dipstick Negative /ul (Negative); Nitrite-Dipstick Negative (Negative); Occult Blood-Urine Negative /ul (Negative); Protein-Dipstick Negative (Negative); Specific Gravity, Urine 1.010 (1.002-1.030); Urine Bilirubin Dipstick Negative (Negative)
--- NOTE | 2024-08-20 13:05 | CM.ED ---
Social Work Date of referral: 08/20/24 Reason for referral: No Advanced Care Directives (ACD's) on file Referred by: Social Work Identification Patient provided consent to Social Work visit. Pocket [employer] requested a copy of ACD's which patient agreed to bring in. Nannette Cason, GEOSPATIAL DEVELOPER, FLOAT NURSE
== END 2024-08-20 15:26 | disposition home or self-care (01) ==
PROVIDERS: Emergency Provider Emergency Medicine; PCP Nurse Practitioner Family; Visit Provider Emergency Medicine
DX: R10.84 Generalized abdominal pain (principal); J44.9 Chronic obstructive pulmonary disease, unspecified; I42.8 Other cardiomyopathies; I35.2 Nonrheumatic aortic (valve) stenosis with insufficiency; I10 Essential (primary) hypertension; E03.9 Hypothyroidism, unspecified; E66.9 Obesity, unspecified; I34.0 Nonrheumatic mitral (valve) insufficiency; K21.9 Gastro-esophageal reflux disease without esophagitis; Z95.2 Presence of prosthetic heart valve; Z87.19 Personal history of other diseases of the digestive system; Z90.49 Acquired absence of other specified parts of digestive tract; Z79.51 Long term (current) use of inhaled steroids; Z79.890 Hormone replacement therapy; Z79.899 Other long term (current) drug therapy
CPT/HCPCS: 74177; 80048; 81001; 83690; 85025; 93005; 96361; 96365; 96375; 99285; Q9967; A4216; J2405

== ENCOUNTER 2024-10-06 14:23 | Emergency (ER) | payer MEDICARE, OTHER, SELFPAY ==
[2024-10-06 14:24] VITALS: BP 153/84; PULSE 71; RESP 18; TEMP 36.9; O2SAT 98; BMI 40.4
[2024-10-06 14:27] VITALS: BP 153/84; PULSE 69; RESP 22; TEMP 37.1; O2SAT 100
--- NOTE | 2024-10-06 14:41 | EKG12_ITS ---
Test Reason : EDEMA Blood Pressure : */* mmHG Vent. Rate : 64 BPM Atrial Rate : 64 BPM P-R Int : 138 ms QRS Dur : 132 ms QT Int : 464 ms P-R-T Axes : 51 -10 134 degrees QTcB Int : 478 ms Normal sinus rhythm Possible Left atrial enlargement Left bundle branch block Abnormal ECG Confirmed by Chandler Beard ([id number]), metropolitan editor YOANNA WOODS ([id number]) on 10/10/2024 10:24:37 AM Referred By: Confirmed By: Chandler Beard
--- NOTE | 2024-10-06 14:42 | RAD_ITS ---
EXAM: XR Chest, 1 View CLINICAL INDICATION: SOB TECHNIQUE: Frontal view of the chest. COMPARISON: No relevant prior studies available. FINDINGS: LUNGS AND PLEURAL SPACES: See below. HEART: Cardiomegaly with mild congestion. MEDIASTINUM: Unremarkable. Normal mediastinal contour. BONES/JOINTS: Unremarkable. No acute fracture. RAD/Chest PA and Lateral IMPRESSION: Cardiomegaly with mild congestion. Reading Location: [id number]
--- NOTE | 2024-10-06 14:43 | ED.VIS.LOWEX ---
HPI <Dr. Mounika Wolf MD - Last Filed: 10/07/24 22:00> History of Present Illness HPI Narrative: Patient is an 89-year-old female presenting to the emergency department for lower extremity edema and worsening shortness of breath for the past few weeks. Patient has a past medical history of hypertension, obesity, nonischemic cardiomyopathy, aortic valve replacement in 2018. Patient states she has been taking her Lasix 40 mg every day and has not missed any doses. Denies chest pain, fever, chills, sore throat, acute cough, abdominal pain, nausea, vomiting, diarrhea. She saw her refrigerating technician on 07/25/24 last. Denies recent hospitalizations or surgeries. Denies any history of DVT or PE. Chief Complaint: Edema PFSH <Dr. Mounika Wolf MD - Last Filed: 10/07/24 22:00> [facility] Medical History COPD (chronic obstructive pulmonary disease) Non-ischemic cardiomyopathy Nonrheumatic aortic (valve) stenosis with insufficiency Essential hypertension Seroma after procedure History of eye disorder Wears glasses Wears dentures Cancer Thyroid disease Restless legs Blackout History of GI bleed Gastric reflux Non-smoker Hoarseness Shortness of breath on exertion Cardiology follow-up encounter GERD (gastroesophageal reflux disease) Femoral hernia of right side Severe sepsis Acute respiratory failure with hypoxemia Pulmonary edema Obesity Body mass index (BMI) 35 or more Demand ischemia Hypothyroidism Vertigo Psoriasis Gout Skin cancer Arthritis Anemia Nonrheumatic mitral (valve) insufficiency Hiatal hernia with gastroesophageal reflux Home Medications ?Medication ?Instructions ?Recorded ?Last Taken ?Type omeprazole 40 mg capsule,delayed 40 mg PO DAILY 05/01/21 09/10/21 History release multivitamin 1 tab PO DAILY supplement 09/11/21 09/10/21 History fluticasone fur. 100 mcg-umeclid 1 ea inhalation QDAY 07/25/24 Unknown History 62.5 mcg-vilant 25 mcg inhalat.powder (Trelegy Ellipta) furosemide 40 mg tablet 40 mg PO DAILY dose increased by 07/25/[address] Rupert Garcia levothyroxine 112 mcg tablet 112 mcg PO QDAY 07/25/24 Unknown History amlodipine 2.5 mg tablet 2.5 mg PO DAILY #90 tabs 08/07/24 Unknown Rx ondansetron 4 mg disintegrating 4 mg PO Q8H PRN PRN Nausea #10 tabs 08/20/24 Unknown Rx tablet Allergy/AdvReac Type Severity Reaction Status Date / Time metoprolol AdvReac Severe Other Verified 10/06/24 14:24 Family History Mother Hypertension Diabetes Father Hypertension Heart disease CVA (cerebral vascular accident) Cancer Brother Cancer Diabetes Heart disease CVA (cerebral vascular accident) Brother CVA (cerebral vascular accident) Surgical History History of aortic valve replacement with bioprosthetic valve (06/15/17) Hx of colonoscopy History of partial colectomy History of esophagogastroduodenoscopy (EGD) History of left heart catheterization (2011) History of bladder suspension procedure History of hysterectomy History of incisional hernia repair History of Ronen fundoplication (10/21/16) History of repair of hiatal hernia (10/21/16) Social History household members: none housing: apartment Smoking Status: Never smoker second hand exposure: No alcohol intake: never substance use type: does not use caffeine: Yes Type: coffee Number of servings: 1 what type of physical activity do you participate in: none frequency: does not exercise ROS <Dr. Mounika Wolf MD - Last Filed: 10/07/24 22:00> ROS ED ROS Narrative see HPI EXAM <Dr. Mounika Wolf MD - Last Filed: 10/07/24 22:00> Physical Exam Narrative Exam Narrative: Vital signs: Reviewed General: Alert and oriented x 3. No acute distress. Chronically ill-appearing HEENT: Head is normocephalic and atraumatic, sinuses nontender, pupils equal round and reactive. Nares are patent. Oropharynx and throat exams normal. Neck: Supple without lymphadenopathy nontender Cardiovascular: Regular rate and rhythm, no murmurs. No rubs or gallops. Normal S1 and S2 Respiratory: Clear to auscultation bilaterally. No wheezes, rales, rhonchi. On room air Abdominal: Soft and nontender. Normal bowel sounds. No guarding or rebound. Nonsurgical abdomen Extremities: Symmetrical 1+ pitting edema bilaterally. No posterior calf tenderness to palpation. No asymmetry to the swelling. No erythema or warmth. No tenderness. No bruising. Normal range of motion. Normal sensation. Skin: No rash or redness. Neurological: Cranial nerves II through XII are grossly intact. Normal strength and sensation. Normal cerebellar function The rest of the physical exam is unremarkable Const Vital Signs: 10/06/24 14:24 10/06/24 14:27 10/06/24 14:27 Temperature 98.4 F 98.7 F Temperature Source Oral Oral Pulse Rate 71 69 Respiratory Rate 18 22 H Respiratory Effort Normal Respiratory Pattern Normal Blood Pressure 153/84 H 153/84 H Blood Pressure Mean 107 107 Pulse Ox 98 100 Oxygen Delivery Method Room Air Room Air 10/06/24 14:41 10/06/24 15:57 10/06/24 17:15 Temperature 98.8 F Temperature Source Oral Pulse Rate 71 75 Respiratory Rate 22 H 18 Respiratory Effort Respiratory Pattern Blood Pressure 144/101 H 149/79 H Blood Pressure Mean 115 102 Pulse Ox 98 99 Oxygen Delivery Method Room Air Room Air Room Air <Dr. Carl Root MD - Last Filed: 10/06/24 18:32> Physical Exam Const Vital Signs: 10/06/24 14:24 10/06/24 14:27 10/06/24 14:27 Temperature 98.4 F 98.7 F Temperature Source Oral Oral Pulse Rate 71 69 Respiratory Rate 18 22 H Respiratory Effort Normal Respiratory Pattern Normal Blood Pressure 153/84 H 153/84 H Blood Pressure Mean 107 107 Pulse Ox 98 100 Oxygen Delivery Method Room Air Room Air 10/06/24 14:41 10/06/24 15:57 10/06/24 17:15 Temperature 98.8 F Temperature Source Oral Pulse Rate 71 75 Respiratory Rate 22 H 18 Respiratory Effort Respiratory Pattern Blood Pressure 144/101 H 149/79 H Blood Pressure Mean 115 102 Pulse Ox 98 99 Oxygen Delivery Method Room Air Room Air Room Air MDM <Dr. Mounika Wolf MD - Last Filed: 10/07/24 22:00> [facility] MDM Narrative Medical decision making narrative: Patient is an 89-year-old female presenting to the emergency department for shortness of breath and worsening lower extremity edema for the past few weeks. Patient was seen and examined. Vitals are stable. Patient resting bed comfortably no acute distress. She is 100% on room air. Differential includes but is not limited to: CHF exacerbation, ACS, pneumonia, viral illness CBC with no leukocytosis and normal hemoglobin. CMP with baseline kidney function, otherwise no significant abnormalities. Initial troponin of 28. No baseline to compare to. Lab Data Labs: Laboratory Results - last 24 hr 10/06/24 10/06/24 14:50 16:40 WBC 7.7 RBC 4.51 Hgb 13.5 Hct 41.9 MCV 92.9 MCH 29.9 MCHC 32.2 RDW Std Deviation 45.1 H RDW Coeff of Fabricio 13.3 Plt Count 177 MPV 12.2 H Immature Gran % (Auto) 0.500 Neut % (Auto) 63.0 Lymph % (Auto) 22.6 [place] % (Auto) 10.3 H Eos % (Auto) 2.7 Baso % (Auto) 0.9 Absolute Neuts (auto) 4.9 Absolute Lymphs (auto) 1.74 Nucleated RBC % 0 Sodium 140 Potassium 4.2 Chloride 99 Carbon Dioxide 27.0 Anion Gap 14 BUN 22 H Creatinine 1.22 H Estim Creat Clear Calc 33.30 L Est GFR (MDRD) Non-Af 42 L BUN/Creatinine Ratio 18.0 Glucose 120 H Calcium 9.6 Total Bilirubin 0.30 AST 19 ALT 12 Alkaline Phosphatase 81 Troponin T High Sens 28 H Troponin T Hi Sens 2 Hr 27 H NT pro BNP II 4244 H Total Protein 6.9 Albumin 4.1 Globulin 2.8 Albumin/Globulin Ratio 1.5 Radiography Diagnostic Testing: Clinical Impression(s) from Imaging Studies Chest X-Ray 10/06/24 14:42 IMPRESSION: Cardiomegaly with mild congestion. Reading Location: [id number] <Dr. Carl Root MD - Last Filed: 10/06/24 18:32> [facility] MDM Narrative Medical decision making narrative: Patient is an 89-year-old female presenting to the emergency department for shortness of breath and worsening lower extremity edema for the past few weeks. Patient was seen and examined. Vitals are stable. Patient resting bed comfortably no acute distress. She is 100% on room air. Differential includes but is not limited to: CHF exacerbation, ACS, pneumonia, viral illness CBC with no leukocytosis and normal hemoglobin. CMP with baseline kidney function, otherwise no significant abnormalities. Initial troponin of 28. No baseline to compare to. Patient turned over to me by Dr. Mounika Wolf. Patient was able to ambulate and her pulse ox stayed 93% or better. Initial troponin was 20 8 repeat was 27. Plan was to discharge the patient to home as long as she can ambulate which she did not become hypoxic. Repeat exam at 6:28 PM doing well. Wants to be discharged home. Brother coming to pick her up. Lab Data Labs: Laboratory Results - last 24 hr 10/06/24 10/06/24 14:50 16:40 WBC 7.7 RBC 4.51 Hgb 13.5 Hct 41.9 MCV 92.9 MCH 29.9 MCHC 32.2 RDW Std Deviation 45.1 H RDW Coeff of Fabricio 13.3 Plt Count 177 MPV 12.2 H Immature Gran % (Auto) 0.500 Neut % (Auto) 63.0 Lymph % (Auto) 22.6 [place] % (Auto) 10.3 H Eos % (Auto) 2.7 Baso % (Auto) 0.9 Absolute Neuts (auto) 4.9 Absolute Lymphs (auto) 1.74 Nucleated RBC % 0 Sodium 140 Potassium 4.2 Chloride 99 Carbon Dioxide 27.0 Anion Gap 14 BUN 22 H Creatinine 1.22 H Estim Creat Clear Calc 33.30 L Est GFR (MDRD) Non-Af 42 L BUN/Creatinine Ratio 18.0 Glucose 120 H Calcium 9.6 Total Bilirubin 0.30 AST 19 ALT 12 Alkaline Phosphatase 81 Troponin T High Sens 28 H Troponin T Hi Sens 2 Hr 27 H NT pro BNP II 4244 H Total Protein 6.9 Albumin 4.1 Globulin 2.8 Albumin/Globulin Ratio 1.5 Radiography Diagnostic Testing: Clinical Impression(s) from Imaging Studies Chest X-Ray 10/06/24 14:42 IMPRESSION: Cardiomegaly with mild congestion. Reading Location: [facility] Discharge Plan Triage Chief Complaint: Edema ED Provider: Mounika Wolf Dx/Rx/DC Orders Clinical Impression: CHF exacerbation Instructions: Heart Failure Dc, ED Peripheral Edema, Bilateral Prescriptions: No Action omeprazole 40 mg capsule,delayed release(DR/EC) 40 mg PO DAILY Patient Comments: take 1 capsule by mouth once daily levothyroxine 112 mcg tablet 112 mcg PO QDAY [place] Ellipta 100-62.5-25 mcg blister with device 1 ea inhalation QDAY multivitamin Tablet 1 tab PO DAILY ondansetron 4 mg tablet,disintegrating 4 mg PO Q8H PRN PRN (Reason: Nausea) Qty: 10 0RF furosemide 40 mg tablet 40 mg PO DAILY amlodipine 2.5 mg tablet 2.5 mg PO DAILY Qty: 90 3RF Primary Care Provider: LUIZ PEREIRA Referrals: Hernan Luna MD [Med Staff - Active Staff] - 2 Days LUIZ PEREIRA CATH LAB TECHNOLOGIST-C [Primary Care Provider] - Activity Restrictions/Additional Instructions: I would recommend doubling your Lasix dose at home for the next 5 to 7 days. Speak with your refrigerating technician tomorrow for further instructions and recommendations. Your evaluation in the Emergency Department did not reveal any acute reason for admission. However, I want to emphasize that you may be early in the course of a disease process or illness even if it is not present. For this reason you should follow-up within 24 hours for reevaluation with either your primary care physician or if necessary back here in the Emergency Department. You should return to the Emergency Department immediately if your symptoms worsen or new symptoms develop. Print Language: Turkmen Disposition Disposition: Home, Self Care Discharge Date/Time: 10/06/24 19:08
[2024-10-06 14:57] LABS: Hematocrit 41.9 % (37-47); Hemoglobin 13.5 g/dL (12.0-15.0); Immature Granulocytes Count 0.040 X10^3/uL (0.0-0.0); Mean Corp Hgb Conc 32.2 g/dL (32-36); Mean Corpuscular Volume 92.9 fL (81-99); Mean Platelet Vol. 12.2 fl (6.2-12.0); NRBC Flagged by Analyzer 0 % (0-5); Platelet Count 177 K/mm3 (150-450); RBC Distribution Width CV 13.3 % (11.6-14.6); RBC Distribution Width SD 45.1 fl (35.1-43.9); Red Blood Count 4.51 M/mm3 (4.2-5.4); White Blood Count 7.7 K/mm3 (4.4-11.0)
[2024-10-06 15:37] LABS: AST(SGOT) 19 U/L (<=31); Alanine Aminotransfer ALT/SGPT 12 U/L (<=34); Albumin, Serum 4.1 g/dL (3.4-4.8); Alkaline Phosphatase 81 U/L (35-104); Anion Gap 14 (5-15); BUN 22 mg/dL (4-19); BUN/Creat Ratio 18.0 RATIO (10-20); Calcium,Total 9.6 mg/dL (7.6-11.0); Carbon Dioxide 27.0 mmol/L (21.0-32.0); Chloride 99 mmol/L (98-108); Estimated Creatinine Clearance 33.30 ml/min (50-250); Globulin 2.8 g/dL (2.2-4.2); Glucose 120 mg/dL (70-99); Potassium 4.2 mmol/L (3.3-5.1)
[2024-10-06 15:49] LABS: Troponin T High Sensitivity 28 ng/L (<=14)
[2024-10-06 15:57] VITALS: BP 144/101; PULSE 71; RESP 22; TEMP 37.1; O2SAT 98
--- NOTE | 2024-10-06 15:59 | ED.RN ---
sepsis screen did not allow this RN to chart that RR was >20
[2024-10-06 16:02] LABS: Pro- Brain NATRIURETIC PEPTIDE 4244 pg/mL (<=1800)
[2024-10-06 17:15] VITALS: BP 149/79; PULSE 75; RESP 18; O2SAT 98; O2SAT 99
--- NOTE | 2024-10-06 17:56 | ED.RN ---
called lab to inquire about troponin
[2024-10-06 18:15] LABS: Troponin T High Sens 2 HR 27 ng/L (<=14)
[2024-10-06 18:30] VITALS: BP 137/76; PULSE 73; RESP 18; TEMP 36.9; O2SAT 100
== END 2024-10-06 19:08 | disposition home or self-care (01) ==
PROVIDERS: Emergency Provider Student in an Organized Health Care Education/Training Program; PCP Nurse Practitioner Family; Visit Provider Student in an Organized Health Care Education/Training Program
DX: I11.0 Hypertensive heart disease with heart failure (principal); I50.9 Heart failure, unspecified; J44.9 Chronic obstructive pulmonary disease, unspecified
CPT/HCPCS: 71046; 80053; 83880; 84484; 85025; 93005; 96374; 99285; A4216; J1938

== ENCOUNTER → 2025-01-11 | Outpatient (CLI) | payer MEDICARE, OTHER, SELFPAY ==
--- NOTE | 2025-01-11 11:50 | RAD_ITS ---
PROCEDURE: CHEST PA AND LATERAL 01/11/2025 REASON FOR EXAM: H[place]ILTON TECHNIQUE: Procedure Code: RADCXR Modality: DX Procedure: CHEST PA AND LATERAL COMPARISON: 10/06/2024 FINDINGS: Hardware: Sternotomy wires are present. Heart: Heart size is mildly enlarged. Mediastinum: There are atherosclerotic calcifications of the thoracic aorta. Lungs: Left basilar atelectasis. Diffuse pulmonary vascular congestion. No pneumothorax. Bones: Degenerative changes are identified within the thoracic spine. RAD/Chest PA and Lateral IMPRESSION: Mild cardiomegaly with mild pulmonary vascular congestion and left basilar atel ectasis. Reading [facility]
[2025-01-11 12:32] LABS: Hematocrit 43.8 % (37-47); Hemoglobin 14.3 g/dL (12.0-15.0); Immature Granulocytes Count 0.020 X10^3/uL (0.0-0.0); Mean Corp Hgb Conc 32.6 g/dL (32-36); Mean Corpuscular Volume 90.3 fL (81-99); Mean Platelet Vol. 12.7 fl (6.2-12.0); NRBC Flagged by Analyzer 0 % (0-5); Platelet Count 192 K/mm3 (150-450); RBC Distribution Width CV 15.2 % (11.6-14.6); RBC Distribution Width SD 50.4 fl (35.1-43.9); Red Blood Count 4.85 M/mm3 (4.2-5.4); White Blood Count 7.2 K/mm3 (4.4-11.0)
[2025-01-11 13:31] LABS: AST(SGOT) 19 U/L (<=31); Alanine Aminotransfer ALT/SGPT 11 U/L (<=34); Albumin, Serum 4.2 g/dL (3.4-4.8); Alkaline Phosphatase 77 U/L (35-104); Anion Gap 12 (5-15); BUN 14 mg/dL (4-19); BUN/Creat Ratio 12.6 RATIO (10-20); Calcium,Total 10.0 mg/dL (7.6-11.0); Carbon Dioxide 27.2 mmol/L (21.0-32.0); Chloride 100 mmol/L (98-108); Globulin 2.8 g/dL (2.2-4.2); Glucose 124 mg/dL (70-99); Potassium 4.9 mmol/L (3.3-5.1); Pro- Brain NATRIURETIC PEPTIDE 7819 pg/mL (<=1800)
== END | disposition home or self-care (01) ==
LOC: RAD 11:09
PROVIDERS: PCP Nurse Practitioner Family; Referring Provider Physician Assistant Medical; Visit Provider Physician Assistant Medical
DX: I42.8 Other cardiomyopathies (principal); R06.00 Dyspnea, unspecified
CPT/HCPCS: 36415; 71046; 80053; 83880; 84443; 85025

== ENCOUNTER → 2025-01-25 | Outpatient (CLI) | payer MEDICARE, OTHER, SELFPAY ==
[2025-01-25 18:18] LABS: Anion Gap 16 (5-15); BUN 23 mg/dL (4-19); BUN/Creat Ratio 16.2 RATIO (10-20); Calcium,Total 9.5 mg/dL (7.6-11.0); Carbon Dioxide 24.0 mmol/L (21.0-32.0); Chloride 99 mmol/L (98-108); Glucose 94 mg/dL (70-99); Potassium 4.5 mmol/L (3.3-5.1)
== END | disposition home or self-care (01) ==
LOC: LAB 14:59
PROVIDERS: PCP Nurse Practitioner Family; Referring Provider Physician Assistant Medical; Visit Provider Physician Assistant Medical
DX: I42.8 Other cardiomyopathies (principal)
CPT/HCPCS: 36415; 80048